=== PATIENT | female | born 1950 | race Caucasian/White ===

== ENCOUNTER 2017-11-28 11:37 | Inpatient (IN) | payer OTHER ==
--- NOTE | 2017-11-28 12:14 | PDOC ---
History of Present Illness - General Chief Complaint: Altered Mental Status Stated Complaint: AMS Time Seen by Provider: 11/28/17 11:58 History Source: Alf Records, Primary Care Provider Exam Limitations: Dementia - History of Present Illness Initial Comments: 11/28/17 15:27 Patient is a 66-year-old female past medical history of anemia, stage IV CAD, dementia, presents to the emergency department today from [facility] with the chief complaint of altered mental status. History was obtained from FATOU Capone at [facility]. She states that the patient is usually A&Ox3, verbal calling out and aggressive. When she saw the patient today patient was A& Ox1 (names), nonverbal, listless and not acting like herself. She states that the patient is not taking any of her home medications this morning nor she been eating and drinking. States that her baseline creatinine is approximately 2.9. No known fevers, recent illness, shortness of breath, nausea vomiting diarrhea. Past History - Travel Traveled outside of the country in the last 30 days: No Close contact w/someone who was outside of country & ill: No - Past Medical History Allergies/Adverse Reactions: Allergies Allergy/AdvReac Type Severity Reaction Status Date / Time No Known Allergies Allergy Verified 11/28/17 11:40 Home Medications: Ambulatory Orders Aspirin [Aspirin EC] 81 mg PO DAILY 11/28/17 Brimonidine Tartrate [Alphagan P 0.1% -] 1 drop OU TID 11/28/17 Calcium Carbonate/Vitamin D3 [Calcium 500 + Vit D 200 Caplet] 1 each PO DAILY Carbidopa/Levodopa 25/100 [Sinemet 25/100 -] 1 each PO TID 11/28/17 Citalopram Hydrobromide [Celexa -] 10 mg PO DAILY 11/28/17 Clonazepam [Klonopin -] 0.5 mg PO BID 11/28/17 Cyanocobalamin (Vitamin B-12) [Vitamin B-12] 1,000 mcg PO DAILY 11/28/17 Docusate Sodium 300 mg PO HS 11/28/17 Donepezil HCl [Aricept] 10 mg PO DAILY 11/28/17 Dorzolamide HCl [Trusopt 2%] 1 drop OU TID 11/28/17 Ferrous Sulfate 325 mg PO BID 11/28/17 Folic Acid 1 mg PO DAILY 11/28/17 Glimepiride 1 mg PO DAILY 11/28/17 Haloperidol 0.5 mg PO HS 11/28/17 Insulin Glargine,Hum.rec.anlog [Lantus] 20 unit SQ HS 11/28/17 Latanoprost 0.005% Eye Drops [Xalatan 0.005% Eye Drops -] 1 drop OU HS 11/28/17 Pilocarpine 1% [Pilostat 1% -] 1 drop OU QID 11/28/17 Simvastatin [Zocor -] 20 mg PO HS 11/28/17 Sodium Chloride [Saline Nose [place]] 1 spray NS BID 11/28/17 Anemia: Yes COPD: No Dementia: Yes Diabetes: Yes Hypercholesterolemia: Yes Psychiatric Problems: Yes Other medical history: glaucoma, kidney failure, Parkinson's disease - Suicide/Smoking/Psychosocial Hx Smoking History: Unknown if ever smoked Review of Systems - Review of Systems Able to Perform ROS?: No (Demented/non-verbal) *Physical Exam - Vital Signs Last Vital Signs Temp Pulse Resp BP Pulse Ox 98.9 F 73 18 154/64 11/28/17 11:41 11/28/17 11:41 11/28/17 11:41 11/28/17 11:41 - Physical Exam Comments: 11/28/17 16:41 GENERAL: Well developed, well nourished. Awake and alert to name only. No acute distress. Reaching out of exam bed. HEENT: Normocephalic, atraumatic. PERRLA, EOMI. No conjunctival pallor. Sclera are non- icteric. Moist mucous membranes. Oropharynx is clear. NECK: Supple. Full ROM. No JVD. Carotid pulses 2+ and symmetric, without bruits. No thyromegaly. No lymphadenopathy. CARDIOVASCULAR: Regular rate and rhythm. Systolic murmur II/ along the R and L 2nd/3rd intercostal space . No rubs, or gallops. Distal pulses are 2+ and symmetric. PULMONARY: No evidence of respiratory distress. Lungs clear to auscultation bilaterally. No wheezing, rales or rhonchi. ABDOMINAL: Soft. Non-tender. Non-distended. No rebound or guarding. No organomegaly. Normoactive bowel sounds. MUSCULOSKELETAL Normal range of motion at all joints. No bony deformities or tenderness. No CVA tenderness. EXTREMITIES: No cyanosis. No clubbing. No edema. No calf tenderness. SKIN: Warm and dry. Normal capillary refill. No rashes. No jaundice. NEUROLOGICAL: Unable to perform a neuro exam. Pt. is non-verbal, not responding to commands and aggressive. Toes are down-going bilaterally. Gait is not observed. PSYCHIATRIC: Cooperative. Good eye contact. Appropriate mood and affect. ED Treatment Course - LABORATORY CBC & Chemistry Diagram: 11/29/17 05:50 11/29/17 05:50 Medical Decision Making - Critical Care Time Total Critical Care Time (minutes): 30 Critical Care Statement: The care of this patient involved high complexity decision making to prevent further life threatening deterioration of the patient 's condition and/or to evaluate & treat vital organ system(s) failure or risk of failure. - Medical Decision Making 11/28/17 12:29 Patient is a 66-year-old female past medical history of anemia, dementia, CKD stage 4, who presents to the ED from [facility] with altered mental status. Broad differential given altered mental status. Patient is A&O 1 and nonverbal at this time. Differential diagnosis includes but is not limited to CVA, sepsis, ACS, electrolyte imbalance, hypoglycemia. 1.CBC, CMP, PT/INR, cardiac profile, UA, UC 2.chest x-ray, head CT 3.aspirin, IV fluids 4.reevaluate 11/28/17 14:24 Lab work is markedly abnormal. Hgb 7.4, Crit 23.6, Troponin 0.17, Cr 3.4, BUN 63 , glucose 253, sodium 151. There is no apparent leukocytosis white count is 6.1 however there is a left shift neutrophils 86%. Urine is also with positive leuk esterase, 12 WBCs. Troponin may be due to kidney function, demand ischemia. EKG shows a rate of 63 normal sinus rhythm, left axis deviation inverted T waves in V2. Will re-draw troponin We will hold normal saline at this time. Starting half normal saline due to hypernatremia. Aspirin given for the troponin. Head CT is negative for ischemic stroke, hemorrhage, mass effect. Chest X-ray: negative for acute cardiopulmonary disease. Given many abnormal lab results, will call long-term for more information. 11/28/17 15:15 Spoke with FATOU Capone at [facility]. States that pt. baseline is approximately 2.9 and pt in stage 4 CKD. AMS is new as of two days ago. Will admit the patient for further work up at this time. Page to Dr. Montelongo 11/28/17 16:[address] Montelongo. 11/28/17 17:46 Spoke with pt pcp Dr. Montelongo. Agrees that pt needs to be admitted. States that the admission will go to Dr. Santos, however since it is after 5 admission to go to hosptialist. Confirming with hosptialist group now. 11/28/17 18:02 Hospitalists are covering for Dr. Santos's admission. Microblog sent. *DC/Admit/Observation/Transfer Diagnosis at time of Disposition: Hypernatremia, Elevated troponin, BING (acute kidney injury) Anemia Qualifiers: Anemia type: unspecified type Qualified Code(s): D64.9 - Anemia, unspecified Altered mental status Qualifiers: Altered mental status type: unspecified Qualified Code(s): R41.82 - Altered mental status, unspecified - Discharge Dispostion Condition at time of disposition: Guarded Admit: Yes - Referrals - Patient Instructions - Post Discharge Activity
[2017-11-28 12:52] LABS: BASO % 0.2 % (0-2.0); EOS % 0.1 % (0-4.5); HEMATOCRIT 23.6 % (32.4-45.2); HEMOGLOBIN 7.4 GM/dL (10.7-15.3); MCH 29.5 pg (25.7-33.7); MCHC 31.1 g/dl (32.0-36.0); MEAN CELL VOLUME 94.7 fl (80-96); MEAN PLT VOLUME 7.1 fl (7.5-11.1); NEUT % 86.7 % (42.8-82.8); PLATELET COUNT 152 K/MM3 (134-434); WHITE BLOOD COUNT 6.1 K/mm3 (4.0-10.0)
[2017-11-28 13:11] LABS: INR 0.96 (0.82-1.09); PROTHROMBIN TIME (PATIENT) 10.8 SEC (9.98-11.88)
[2017-11-28 13:31] LABS: ALBUMIN 2.6 g/dl (3.4-5.0); ANION GAP 10 (8-16); BILIRUBIN,TOTAL 0.3 mg/dL (0.2-1.0); BLOOD UREA NITROGEN 68 mg/dL (7-18); CALCIUM 8.4 mg/dL (8.5-10.1); CHLORIDE 116 mmol/L (98-107); CO2 25 mmol/L (21-32); CREATININE 3.4 mg/dL (0.55-1.02); GLUCOSE,RANDOM 253 mg/dL (74-106); POTASSIUM 4.5 mmol/L (3.5-5.1); SGOT/AST 63 U/L (15-37); SGPT/ALT 10 U/L (12-78); SODIUM 151 mmol/L (136-145); TOT PROT 6.6 g/dl (6.4-8.2)
[2017-11-28 13:34] LABS: URINE APPEARANCE CLOUDY; URINE BILIRUBIN NEGATIVE (NEGATIVE); URINE BLOOD NEGATIVE (NEGATIVE); URINE COLOR DKYELLOW; URINE GLUCOSE (UA) 2+ (NEGATIVE); URINE KETONE NEGATIVE (NEGATIVE); URINE NITRITE NEGATIVE (NEGATIVE); URINE UROBILINOGEN NEGATIVE mg/dL (0.2-1.0)
[2017-11-28 13:34] LABS: ALK PHOS 87 U/L (45-117)
[2017-11-28] MEDS ORDERED: SODIUM CHLORIDE 1,000 ML IV STA (14:28)
[2017-11-28 14:48] LABS: URINE LEUK ESTERASE 1+ (NEGATIVE); URINE PROTEIN 3+ (NEGATIVE)
[2017-11-28 14:53] LABS: EPI CELLS RARE /HPF (FEW); URINE BACTERIA RARE /hpf (NONE SEEN)
--- NOTE | 2017-11-28 15:23 | EKG ---
Test Reason : Blood Pressure : / mmHG Vent. Rate : 063 BPM Atrial Rate : 063 BPM P-R Int : 192 ms QRS Dur : 102 ms QT Int : 454 ms P-R-T Axes : 086 -62 065 degrees QTc Int : 464 ms POOR DATA QUALITY, INTERPRETATION MAY BE ADVERSELY AFFECTED NORMAL SINUS RHYTHM LEFT AXIS DEVIATION ANTEROSEPTAL INFARCT , AGE UNDETERMINED ABNORMAL ECG NO PREVIOUS ECGS AVAILABLE Confirmed by FEDE PISANO, AMPARO ([id number]) on 11/28/2017 3:23:13 PM Referred By: Confirmed By:AMPARO MISTRY MD
[2017-11-28] MEDS ORDERED: ASPIRIN 300 MG SUPP.RECT PR ONE (16:56)
[2017-11-28] MEDS ORDERED: SODIUM CHLORIDE 0.45% 1,000 ML IV SCH (17:15)
[2017-11-28] MEDS ORDERED: ASPIRIN 300 MG SUPP.RECT RC ONE (17:19)
[2017-11-28] MEDS ORDERED: CEFTRIAXONE 1 G/50 ML PREMIX 50 ML IVPB ONE (21:22)
--- NOTE | 2017-11-28 21:29 | HP ---
CHIEF COMPLAINT: Altered mental status PCP: Jayda HISTORY OF PRESENT ILLNESS: This is a 66 year old female sent to ED from [facility] for altered mental status. Pt is nonverbal at present, all history obtained from chart. As per ED chart, pt was noted to be nonverbal, listless and not herself today. Her normal baseline is aggressive, calling out and alert and oriented. She has not been taking her medications and her po intake has been very poor. Upon review [facility] it appears she has been on D5NS @50cc/hr since 11/26. ER course was notable for: (1) BUN / CR 68/3.4 (baseline Cr 2.9 as pre NH) (2) u/a with leukesterase and 12 WBC (3) Trop 0.18 PAST MEDICAL HISTORY: Dementia, CKD4, Anemia, DM, Parkinson's disease, glaucoma, HLD, depression PAST SURGICAL HISTORY: unknown Social History: Smoking: unknown Alcohol: unknown Drugs: unknown Family History: unknown Allergies No Known Allergies Allergy (Verified 11/28/17 11:40) Home Medications 3 Medication Instructions Recorded Aspirin [Aspirin EC] 81 mg PO DAILY 11/28/17 Brimonidine Tartrate [Alphagan P 1 drop OU TID 11/28/17 0.1% -] Calcium Carbonate/Vitamin D3 1 each PO DAILY 11/28/17 [Calcium 500 + Vit D 200 Caplet] Carbidopa/Levodopa 25/100 [Sinemet 1 each PO TID 11/28/17 25/100 -] Citalopram Hydrobromide [Celexa -] 10 mg PO DAILY 11/28/17 Clonazepam [Klonopin -] 0.5 mg PO BID 11/28/17 Cyanocobalamin (Vitamin B-12) 1,000 mcg PO DAILY 11/28/17 [Vitamin B-12] Docusate Sodium 300 mg PO HS 11/28/17 Donepezil HCl [Aricept] 10 mg PO DAILY 11/28/17 Dorzolamide HCl [Trusopt 2%] 1 drop OU TID 11/28/17 Ferrous Sulfate 325 mg PO BID 11/28/17 Folic Acid 1 mg PO DAILY 11/28/17 Glimepiride 1 mg PO DAILY 11/28/17 Haloperidol 0.5 mg PO HS 01/17/18 Insulin Glargine,Hum.rec.anlog 20 unit SQ HS 11/28/17 [Lantus] Latanoprost 0.005% Eye Drops 1 drop OU HS 11/28/17 [Xalatan 0.005% Eye Drops -] Pilocarpine 1% [Pilostat 1% -] 1 drop OU QID 11/28/17 Simvastatin [Zocor -] 20 mg PO HS 11/28/17 Sodium Chloride [Saline Nose [place]] 1 spray NS BID 11/28/17 REVIEW OF SYSTEMS CONSTITUTIONAL: Absent: fever, chills, diaphoresis, generalized weakness, malaise, loss of appetite, weight change HEENT: Absent: rhinorrhea, nasal congestion, throat pain, throat swelling, difficulty swallowing, mouth swelling, ear pain, eye pain, visual changes CARDIOVASCULAR: Absent: chest pain, syncope, palpitations, irregular heart rate, lightheadedness , peripheral edema RESPIRATORY: Absent: cough, shortness of breath, dyspnea with exertion, orthopnea, wheezing, stridor, hemoptysis GASTROINTESTINAL: Absent: abdominal pain, abdominal distension, nausea, vomiting, diarrhea, constipation, melena, hematochezia GENITOURINARY: Absent: dysuria, frequency, urgency, hesitancy, hematuria, flank pain, genital pain MUSCULOSKELETAL: Absent: myalgia, arthralgia, joint swelling, back pain, neck pain SKIN: Absent: rash, itching, pallor HEMATOLOGIC/IMMUNOLOGIC: Absent: easy bleeding, easy bruising, lymphadenopathy, frequent infections ENDOCRINE: Absent: unexplained weight gain, unexplained weight loss, heat intolerance, cold intolerance NEUROLOGIC: Absent: headache, focal weakness or paresthesias, dizziness, unsteady gait, seizure, mental status changes, bladder or bowel incontinence PSYCHIATRIC: Absent: anxiety, depression, suicidal or homicidal ideation, hallucinations. PHYSICAL EXAMINATION Vital Signs - 24 hr 3 11/28/17 11/28/17 11/28/17 11:41 12:00 16:21 Temperature 98.9 F 97.5 F L Pulse Rate 73 Pulse Rate [ 70 Apical] Respiratory 18 20 Rate Blood Pressure 154/64 Blood Pressure 143/66 [Left Arm] O2 Sat by Pulse 99 100 Oximetry (%) GENERAL: Awake, disoriented, does not follow commands, resistive to exam. in no acute distress. HEAD: Normal with no signs of trauma. EYES: Pupils equal, round and reactive to light, extraocular movements intact, sclera anicteric, conjunctiva clear. No lid lag. EARS, NOSE, THROAT: Ears normal, nares patent, oropharynx clear without exudates. Moist mucous membranes. NECK: Normal range of motion, supple without lymphadenopathy, JVD, or masses. LUNGS: Breath sounds equal, clear to auscultation bilaterally. No wheezes, and no crackles. No accessory muscle use. HEART: Regular rate and rhythm, normal S1 and S2 without murmur, rub or gallop. ABDOMEN: Soft, nontender, not distended, normoactive bowel sounds, no guarding, no rebound, no masses. No hepatomegaly or splenomegaly. MUSCULOSKELETAL: Normal range of motion at all joints. No bony deformities or tenderness. No CVA tenderness. ecchymosis right shoulder, no pain on palpation, ROM, severe sarcopenia noted UPPER EXTREMITIES: 2+ pulses, warm, well-perfused. No cyanosis. No clubbing. No peripheral edema. LOWER EXTREMITIES: 2+ pulses, warm, well-perfused. No calf tenderness. No peripheral edema. NEUROLOGICAL: Cranial nerves II-XII intact. Normal speech. Normal gait. PSYCHIATRIC: Cooperative. Good eye contact. Appropriate mood and affect. SKIN: Warm, dry, normal turgor, no rashes or lesions noted, normal capillary refill. Laboratory Results - last 24 hr 3 11/28/17 11/28/17 11/28/17 12:44 12:44 12:44 WBC 6.1 RBC 2.50 L Hgb 7.4 L Hct 23.6 L MCV 94.7 MCH 29.5 MCHC 31.1 L RDW 15.0 Plt Count 152 MPV 7.1 L Neutrophils % 86.7 H Lymphocytes % 7.0 L Monocytes % 6.0 Eosinophils % 0.1 Basophils % 0.2 PT with INR 10.80 INR 0.96 Sodium 151 H Potassium 4.5 Chloride 116 H Carbon Dioxide 25 Anion Gap 10 BUN 68 H Creatinine 3.4 H Creat Clearance w eGFR 13.43 Random Glucose 253 H Lactic Acid 2.0 Calcium 8.4 L Total Bilirubin 0.3 AST 63 H ALT 10 L Alkaline Phosphatase 87 Creatine Kinase 894 H Creatine Kinase Index 1.8 CK-MB (CK-2) 16.590 H Troponin I 0.18 H Total Protein 6.6 Albumin 2.6 L Urine Color Urine Appearance Urine pH Ur Specific [place] Urine Protein Urine Glucose (UA) Urine Ketones Urine Blood Urine Nitrite Urine Bilirubin Urine Urobilinogen Ur Leukocyte Esterase Urine WBC (Auto) Urine RBC (Auto) Ur Epithelial Cells Urine Bacteria 3 Urine Color Dkyellow 11/28/17 13:00 Urine Appearance Cloudy 11/28/17 13:00 Urine pH 8.0 (5.0-8.0) 11/28/17 13:00 Ur Specific [place] 1.012 (1.001-1.035) 11/28/17 13:00 Urine Protein 3+ (NEGATIVE) H 11/28/17 13:00 Urine Glucose (UA) 2+ (NEGATIVE) H 11/28/17 13:00 Urine Ketones Negative (NEGATIVE) 11/28/17 13:00 Urine Blood Negative (NEGATIVE) 11/28/17 13:00 Urine Nitrite Negative (NEGATIVE) 11/28/17 13:00 Urine Bilirubin Negative (NEGATIVE) 11/28/17 13:00 Ur Leukocyte Esterase 1+ (NEGATIVE) H 11/28/17 13:00 Urine WBC (Auto) 12 Urine RBC (Auto) <1 Ur Epithelial Cells Rare /HPF (FEW) 11/28/17 13:00 Urine Bacteria Rare /hpf (NONE SEEN) 11/28/17 13:00 ECG POOR DATA QUALITY, INTERPRETATION MAY BE ADVERSELY AFFECTED NORMAL SINUS RHYTHM LEFT AXIS DEVIATION ANTEROSEPTAL INFARCT , AGE UNDETERMINED ABNORMAL ECG NO PREVIOUS ECGS AVAILABLE Confirmed by FEDE PISANO, AMPARO ([id number]) on 11/28/2017 3:23:13 PM Radiology Reports CXR IMPRESSION: No acute disease. Reported By: Avery Blevins MD 11/28/[address] head IMPRESSION: 1. No acute intracranial hemorrhage, mass effects or hydrocephalus. 2. No compelling evidence of acute transcortical infarction at this time. MRI is more sensitive in detecting acute infarctions. 3. Generalized, age-related volume loss with nonspecific patchy hypoattenuation in the cerebral white matter , most likely attributed to microvascular ischemia. Reported By: Deo Diaz DO 11/28/17 [id number] ASSESSMENT/PLAN: 66yF with Dementia, CKD st4, anemia, HLD, Parkinson's disease, Glaucoma presented to the ED with altered mental status. Altered mental status - CT head with no acute findings - likely due to BING/hypernatremia/UTI - swallow eval - hold home klonopin and haldol for now until more alert BING in setting of CKD4 - bump in creatinine from baseline 2.9 to 3.4 - Given NS 1L in ED, cont 0.45%NS @ 125cc/hr - renal consult anemia - likely due to CKD, will obtain renal consult, consider epogen elevated troponin - likely due to CKD, will trend - cardiology consult if not trending down with iVF Hypernatremia - due to hypovolemia-free water deficit calculated 2.0L - cont 0.45%NS @125cc/hr UTI - mildly positive u/a - will start ceftriaxone, follow cultures, dc if no growth DM - hold home glimepiride for now - home lantus dose changed to formulary levemir and decreased to 10uHS from 20uHS as pt with poor po intake, titrate up when tolerating po or as BGM indicates HLD - cont zocor, start tomorrow if more alert Parkinson's disease - cont sinemet, start tomorrow if more alert glaucoma - cont home eye gtt DVT PPX - heparin TID FEN - 0.45%NS @ 125cc/hr - BMP in now - renal diet if alert in am, dietary consult, pt appears frail and malnourished. Dispo: Pt currently requires inpatient mangement of her emergent medical conditions. Visit type - Emergency Visit Emergency Visit: Yes ED Registration Date: 11/28/17 Care time: The patient presented to the Emergency Department on the above date and was hospitalized for further evaluation of their emergent condition. - New Patient This patient is new to me today: Yes Date on this admission: 11/28/17 - Critical Care Critical Care patient: No
[2017-11-28] MEDS ORDERED: CEFTRIAXONE 1 GM/50 ML BAG ONE (21:49)
[2017-11-28 23:20] LABS: ANION GAP 11 (8-16); BLOOD UREA NITROGEN 69 mg/dL (7-18); CALCIUM 7.7 mg/dL (8.5-10.1); CHLORIDE 118 mmol/L (98-107); CO2 21 mmol/L (21-32); CREATININE 3.2 mg/dL (0.55-1.02); GLUCOSE,RANDOM 225 mg/dL (74-106); MAGNESIUM 1.8 mg/dL (1.8-2.4); POTASSIUM 4.6 mmol/L (3.5-5.1); SODIUM 150 mmol/L (136-145)
[2017-11-29 00:06] VITALS: BMI 22.6
[2017-11-29 06:48] LABS: BASO % 0.2 % (0-2.0); HEMATOCRIT 20.2 % (32.4-45.2); MCH 30.5 pg (25.7-33.7); MCHC 32.3 g/dl (32.0-36.0); MEAN CELL VOLUME 94.3 fl (80-96); MEAN PLT VOLUME 7.8 fl (7.5-11.1); MONO % 7.5 % (3.8-10.2); NEUT % 83.3 % (42.8-82.8); PLATELET COUNT 148 K/MM3 (134-434); RBC 2.14 M/mm3 (3.60-5.2); RDW 15.5 % (11.6-15.6); WHITE BLOOD COUNT 5.9 K/mm3 (4.0-10.0)
[2017-11-29 07:06] LABS: ANION GAP 10 (8-16); BLOOD UREA NITROGEN 68 mg/dL (7-18); CALCIUM 7.5 mg/dL (8.5-10.1); CHLORIDE 118 mmol/L (98-107); CO2 21 mmol/L (21-32); CREATININE 3.1 mg/dL (0.55-1.02); GLUCOSE,RANDOM 178 mg/dL (74-106); MAGNESIUM 1.7 mg/dL (1.8-2.4); PHOSPHOROUS 3.1 mg/dL (2.5-4.9); POTASSIUM 4.1 mmol/L (3.5-5.1); SODIUM 149 mmol/L (136-145)
[2017-11-29] MEDS: INSULIN SLIDING SCALE (NOVOLOG) 1 VIAL SQ SCH ×4 (07:20→23:59)
[2017-11-29] MEDS: CARBIDOPA/LEVODOPA 25/100 TABLET (FP) PO SCH ×3 (07:21→22:57)
[2017-11-29] MEDS: HEPARIN NA (PORCINE) 5,000 UNITS/ML 1ML VIAL SQ SCH ×3 (07:22→22:58)
[2017-11-29 08:08] LABS: HEMOGLOBIN 6.5 GM/dL (10.7-15.3)
[2017-11-29] MEDS ORDERED: FUROSEMIDE 40 MG/4 ML INJECTABLE VIAL IVPUSH ONE (08:23)
--- NOTE | 2017-11-29 08:26 | PN ---
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, Physician History of Present Illness: IN BED LETHARGIC VEST IN PLACE FOR SAFETY - Current Medication List Current Medications: Active Medications Aspirin (Ecotrin -) 81 mg PO DAILY [facility] Atorvastatin Calcium (Lipitor -) 10 mg PO HS [facility] Brimonidine Tartrate (Alphagan P 0.1% -) 1 drop OU TID [facility] Calcium Carbonate/Cholecalciferol (Os-Isacc 500+D -) 1 tab PO DAILY [facility] Carbidopa/Levodopa (Sinemet 25/100 -) 1 each PO TID [facility] Last Admin: 11/29/17 07:21 Dose: Not Given Citalopram Hydrobromide (Celexa -) 10 mg PO DAILY [facility] Cyanocobalamin (Vitamin B12 -) 1,000 mcg PO DAILY [facility] Docusate Sodium (Colace -) 300 mg PO HS [facility] Donepezil HCl (Aricept -) 10 mg PO DAILY [facility] Dorzolamide HCl (Trusopt 2%) 1 drop OU TID [facility] Ferrous Sulfate (Feosol -) 325 mg PO BID [facility] Folic Acid (Folic Acid -) 1 mg PO DAILY [facility] Heparin Sodium (Porcine) (Heparin -) 5,000 unit SQ TID [facility] Last Admin: 11/29/17 07:22 Dose: 5,000 unit Sodium Chloride (1/2 Normal Saline) 1,000 mls @ 125 mls/hr IV ASDIR [facility] Last Admin: 11/28/17 17:52 Dose: 125 mls/hr Insulin Aspart (Novolog Vial Sliding Scale -) 1 vial SQ TIDAC [facility] PRN Reason: Protocol Last Admin: 11/29/17 07:20 Dose: Not Given Insulin Aspart (Novolog Vial Sliding Scale -) 1 vial SQ HS [facility] PRN Reason: Protocol Insulin Detemir (Levemir Vial) 10 units SQ HS [facility] Latanoprost (Xalatan 0.005% Eye Drops -) 1 drop OU HS [facility] Pilocarpine HCl (Pilostat 1% -) 1 drop OU QID [facility] - Objective Vital Signs: Vital Signs Temperature 98.7 F 11/29/17 01:24 Pulse Rate 70 11/29/17 06:52 Respiratory Rate 18 11/29/17 06:52 Blood Pressure 155/70 11/29/17 06:52 O2 Sat by Pulse Oximetry (%) 96 11/28/17 23:48 Cardiovascular: Yes: S1, S2 Respiratory: Yes: Regular, CTA Bilaterally Gastrointestinal: Yes: Normal Bowel Sounds, Soft Neurological: Yes: Lethargy Labs: CBC, BMP 11/29/17 05:50 11/29/17 05:50 INR, PTT INR 0.96 (0.82-1.09) 11/28/17 12:44 Problem List - Problems (1) BING (acute kidney injury) Assessment/Plan: IVF MONITOR LABS RENAL CONSULT Code(s): N17.9 - ACUTE KIDNEY FAILURE, UNSPECIFIED (2) Altered mental status Assessment/Plan: MAYBE TOXI METABOLIC HOLD PSYCHOTROPICS NEURO Code(s): R41.82 - ALTERED MENTAL STATUS, UNSPECIFIED Qualifiers: Altered mental status type: unspecified Qualified Code(s): R41.82 - Altered mental status, unspecified (3) Anemia Assessment/Plan: MUTIFACTORIAL WORK UP ORDERED TRANSFUSE 2 UNITS LASIX POST TRANSFUSION Code(s): D64.9 - ANEMIA, UNSPECIFIED Qualifiers: Anemia type: unspecified type Qualified Code(s): D64.9 - Anemia, unspecified (4) Elevated troponin Code(s): R74.8 - ABNORMAL LEVELS OF OTHER SERUM ENZYMES
[2017-11-29] MEDS ORDERED: IRON SUCROSE INJECTION 300 MG in SODIUM CHLORIDE 250 ML IVPB ONE (09:05)
--- NOTE | 2017-11-29 09:05 | CONSULT ---
Consult Consult Specialty:: oncology - History of Present Illness History of Present Illness: 66F who presents to the hospital from [facility] for altered mental status. As per chart, the long term staff noted that patient was not herself and was having worsening mental status. Patient apparently repeatedly usually calls out for staff and is awake and orientated . Her normal baseline is aggressive, calling out and alert and oriented. She has not been taking her medications and her po intake has been very poor. Patient has been on D5NS @50cc /hr since 11/26 according to long term records. In ED, upon laboratory assessment, patient was noted to be hypernatremic and to have an acute kidney injury. Her baseline Cr is reportedly 2.9 as she has CKD and on presentation creatinine was 3.4. There are no documented melena, hematochezia, hematemesis. - History Source History Provided By: Medical Record - Past Medical History ...: No - Alcohol/Substance Use Hx Alcohol Use: No (unknown) - Smoking History Smoking history: Unknown if ever smoked Have you smoked in the past 12 months: No Home Medications - Allergies Allergies/Adverse Reactions: Allergies Allergy/AdvReac Type Severity Reaction Status Date / Time No Known Allergies Allergy Verified 11/28/17 11:40 - Home Medications Home Medications: Ambulatory Orders Aspirin [Aspirin EC] 81 mg PO DAILY 11/28/17 Brimonidine Tartrate [Alphagan P 0.1% -] 1 drop OU TID 11/28/17 Calcium Carbonate/Vitamin D3 [Calcium 500 + Vit D 200 Caplet] 1 each PO DAILY Carbidopa/Levodopa 25/100 [Sinemet 25/100 -] 1 each PO TID 11/28/17 Citalopram Hydrobromide [Celexa -] 10 mg PO DAILY 11/28/17 Clonazepam [Klonopin -] 0.5 mg PO BID 11/28/17 Cyanocobalamin (Vitamin B-12) [Vitamin B-12] 1,000 mcg PO DAILY 11/28/17 Docusate Sodium 300 mg PO HS 11/28/17 Donepezil HCl [Aricept] 10 mg PO DAILY 11/28/17 Dorzolamide HCl [Trusopt 2%] 1 drop OU TID 11/28/17 Ferrous Sulfate 325 mg PO BID 11/28/17 Folic Acid 1 mg PO DAILY 11/28/17 Glimepiride 1 mg PO DAILY 11/28/17 Haloperidol 0.5 mg PO HS 11/28/17 Insulin Glargine,Hum.rec.anlog [Lantus] 20 unit SQ HS 11/28/17 Latanoprost 0.005% Eye Drops [Xalatan 0.005% Eye Drops -] 1 drop OU HS 11/28/17 Pilocarpine 1% [Pilostat 1% -] 1 drop OU QID 11/28/17 Simvastatin [Zocor -] 20 mg PO HS 11/28/17 Sodium Chloride [Saline Nose Saline] 1 spray NS BID 11/28/17 Physical Exam Vital Signs: Vital Signs Temperature 98.7 F 11/29/17 01:24 Pulse Rate 70 11/29/17 06:52 Respiratory Rate 18 11/29/17 06:52 Blood Pressure 155/70 11/29/17 06:52 O2 Sat by Pulse Oximetry (%) 96 11/28/17 23:48 Constitutional: Yes: Poor Hygeine HENT: Yes: Atraumatic, Normocephalic Neck: Yes: Supple Cardiovascular: Yes: Regular Rate and Rhythm Respiratory: Yes: Regular Gastrointestinal: Yes: Soft Neurological: Yes: Other (nonverbal) Labs: CBC, BMP 11/29/17 05:50 11/29/17 05:50 Assessment/Plan family refusing PRBCs as per RN steve moyer to consider epogen
--- NOTE | 2017-11-29 09:54 | CONSULT ---
Consult - text type - Consultation Consultation Note: Neurology History of Present Illness Patient is a 66-year-old female past medical history of anemia, stage IV CAD, dementia, presents to the emergency department today from [facility] with the chief complaint of altered mental status. History per notes as patient is nonverbal. She states that the patient is usually A&Ox3, verbal calling out and aggressive. During my evaluation has been nonverbal, restless, CT head reviewed and did not show acute changes. Admitted for further mgmt of alerted mental status, toxic metabolic encephalopathy. Has underlying dementia, on Donepezil. Spoke to nurse and H/H reduced, hemoglobin 6.5, family did not want blood transfusion. Heme/Onc on board following. Past History - Travel Traveled outside of the country in the last 30 days: No Close contact w/someone who was outside of country & ill: No - Past Medical History Allergies/Adverse Reactions: Allergies Allergy/AdvReac Type Severity Reaction Status Date / Time No Known Allergies Allergy Verified 11/28/17 11:40 Anemia: Yes COPD: No Dementia: Yes Diabetes: Yes Hypercholesterolemia: Yes Psychiatric Problems: Yes Other medical history: glaucoma, kidney failure, Parkinson's disease - Suicide/Smoking/Psychosocial Hx Smoking History: Unknown if ever smoked Active Medications Aspirin (Ecotrin -) 81 mg PO DAILY [facility] Atorvastatin Calcium (Lipitor -) 10 mg PO HS [facility] Brimonidine Tartrate (Alphagan P 0.1% -) 1 drop OU TID [facility] Calcium Carbonate/Cholecalciferol (Os-Isacc 500+D -) 1 tab PO DAILY [facility] Carbidopa/Levodopa (Sinemet 25/100 -) 1 each PO TID [facility] Last Admin: 11/29/17 07:21 Dose: Not Given Citalopram Hydrobromide (Celexa -) 10 mg PO DAILY [facility] Cyanocobalamin (Vitamin B12 -) 1,000 mcg PO DAILY [facility] Docusate Sodium (Colace -) 300 mg PO HS [facility] Donepezil HCl (Aricept -) 10 mg PO DAILY [facility] Dorzolamide HCl (Trusopt 2%) 1 drop OU TID [facility] Ferrous Sulfate (Feosol -) 325 mg PO BID [facility] Folic Acid (Folic Acid -) 1 mg PO DAILY [facility] Heparin Sodium (Porcine) (Heparin -) 5,000 unit SQ TID [facility] Last Admin: 11/29/17 07:22 Dose: 5,000 unit Sodium Chloride (1/2 Normal Saline) 1,000 mls @ 125 mls/hr IV ASDIR [facility] Last Admin: 11/28/17 17:52 Dose: 125 mls/hr Iron Sucrose 300 mg/ Sodium (Chloride) 265 mls @ 265 mls/hr IVPB ONCE ONE Stop: 11/29/17 10:04 Insulin Aspart (Novolog Vial Sliding Scale -) 1 vial SQ TIDAC [facility] PRN Reason: Protocol Last Admin: 11/29/17 07:20 Dose: Not Given Insulin Aspart (Novolog Vial Sliding Scale -) 1 vial SQ HS [facility] PRN Reason: Protocol Insulin Detemir (Levemir Vial) 10 units SQ HS [facility] Latanoprost (Xalatan 0.005% Eye Drops -) 1 drop OU HS [facility] Pilocarpine HCl (Pilostat 1% -) 1 drop OU QID [facility] Review of Systems - Review of Systems Able to Perform ROS?: No (Demented/non-verbal) *Physical Exam Vital Signs Temperature 98.7 F 11/29/17 01:24 Pulse Rate 70 11/29/17 06:52 Respiratory Rate 18 11/29/17 06:52 Blood Pressure 155/70 11/29/17 06:52 O2 Sat by Pulse Oximetry (%) 96 11/28/17 23:48 GENERAL: Well developed, well nourished. Awake and alert to name only. No acute distress. Reaching out of exam bed. HEENT: Normocephalic, atraumatic. PERRLA, EOMI. No conjunctival pallor. Sclera are non- icteric. Moist mucous membranes. Oropharynx is clear. NECK: Supple. Full ROM. No JVD. Carotid pulses 2+ and symmetric, without bruits. No thyromegaly. No lymphadenopathy. CARDIOVASCULAR: Regular rate and rhythm. Systolic murmur II/ along the R and L 2nd/3rd intercostal space . No rubs, or gallops. Distal pulses are 2+ and symmetric. PULMONARY: No evidence of respiratory distress. Lungs clear to auscultation bilaterally. No wheezing, rales or rhonchi. ABDOMINAL: Soft. Non-tender. Non-distended. No rebound or guarding. No organomegaly. Normoactive bowel sounds. MUSCULOSKELETAL Normal range of motion at all joints. No bony deformities or tenderness. No CVA tenderness. EXTREMITIES: No cyanosis. No clubbing. No edema. No calf tenderness. SKIN: Warm and dry. Normal capillary refill. No rashes. No jaundice. NEUROLOGICAL: Unable to perform a neuro exam. Pt. is non-verbal, not responding to commands and aggressive. Toes are down-going bilaterally. Gait is not observed. PSYCHIATRIC: Cooperative. Good eye contact. Appropriate mood and affect. CBCD WBC 5.9 K/mm3 (4.0-10.0) 11/29/17 05:50 RBC 2.14 M/mm3 (3.60-5.2) L 11/29/17 05:50 Hgb 6.5 GM/dL (10.7-15.3) L* D 11/29/17 05:50 Hct 20.2 % (32.4-45.2) L 11/29/17 05:50 MCV 94.3 fl (80-96) 11/29/17 05:50 MCHC 32.3 g/dl (32.0-36.0) 11/29/17 05:50 RDW 15.5 % (11.6-15.6) 11/29/17 05:50 Plt Count 148 K/MM3 (134-434) 11/29/17 05:50 MPV 7.8 fl (7.5-11.1) 11/29/17 05:50 CMP Sodium 149 mmol/L (136-145) H 11/29/17 05:50 Potassium 4.1 mmol/L (3.5-5.1) 11/29/17 05:50 Chloride 118 mmol/L (98-107) H 11/29/17 05:50 Carbon Dioxide 21 mmol/L (21-32) 11/29/17 05:50 Anion Gap 10 (8-16) 11/29/17 05:50 BUN 68 mg/dL (7-18) H 11/29/17 05:50 Creatinine 3.1 mg/dL (0.55-1.02) H 11/29/17 05:50 Creat Clearance w eGFR 13.43 (>60) 11/28/17 12:44 Calcium 7.5 mg/dL (8.5-10.1) L 11/29/17 05:50 Total Bilirubin 0.3 mg/dL (0.2-1.0) 11/28/17 12:44 AST 63 U/L (15-37) H 11/28/17 12:44 ALT 10 U/L (12-78) L 11/28/17 12:44 Alkaline Phosphatase 87 U/L (45-117) 11/28/17 12:44 Total Protein 6.6 g/dl (6.4-8.2) 11/28/17 12:44 Albumin 2.6 g/dl (3.4-5.0) L 11/28/17 12:44 CT head reviewed Medical Decision Making 66-year-old female past medical history of anemia, stage IV CAD, dementia, presents to the emergency department today from [facility] with the chief complaint of altered mental status. History per notes as patient is nonverbal. She states that the patient is usually A&Ox3, verbal calling out and aggressive. During my evaluation has been nonverbal, restless. CT head reviewed and did not show acute changes. For underlying dementia, continue on Donepezil. Hemoglobin 6.5, family did not want blood transfusion and this may also cause her AMS Continue medical optimization Nephrology follow up regarding hypernatermia and CKD Patient with alerted mental status, toxic metabolic encephalopathy which can be caused by any of above
--- NOTE | 2017-11-29 10:04 | CONSULT ---
Admitting History and Physical - Primary Care Physician PCP: Zach Santos - Admission History of Present Illness: Per EMR: HISTORY OF PRESENT ILLNESS: This is a 66 year old female sent to ED from [facility] for altered mental status. Pt is nonverbal at present, all history obtained from chart. As per ED chart, pt was noted to be nonverbal, listless and not herself today. Her normal baseline is aggressive, calling out and alert and oriented. She has not been taking her medications and her po intake has been very poor. Upon review of pt' s medication list from [facility] it appears she has been on D5NS @50cc/hr since 11/26. ER course was notable for: (1) BUN / CR 68/3.4 (baseline Cr 2.9 as pre NH) (2) u/a with leukesterase and 12 WBC (3) Trop 0.18 PAST MEDICAL HISTORY: Dementia, CKD4, Anemia, DM, Parkinson's disease, glaucoma, HLD, depression Pt was on a reg diet/thin liquid at [facility]. Selected Entries 11/28/17 11/28/17 11/28/17 11:41 16:21 21:30 Temperature 98.9 F 97.5 F L 98.4 F 11/28/17 11/29/17 23:48 01:24 Temperature 99 F 98.7 F Laboratory Tests 11/29/17 11/29/17 05:50 05:50 WBC 5.9 Hgb 6.5 L* D Sodium 149 H History Source: Medical Record Limitations to Obtaining History: Clinical Condition, Dementia - Past Medical History ...: No - Advance Directives Advance Directives: Yes: MOLST - Smoking History Smoking history: Unknown if ever smoked Have you smoked in the past 12 months: No - Alcohol/Substance Use Hx Alcohol Use: No (unknown) History - Admission Reason For Visit: ACUTE KID INJ/ANEMIA/HYPERNATREMIA - Diagnostics X-ray: Report Reviewed CT Scan: Report Reviewed - General Mental Status: Confused, Flat Affect Attention: Distractible Ability to Follow Directions: Poor Head/Neck Control: Fair - Hearing Hearing: Normal Hearing Aide: No With Patient: No Speech Evaluation - Communication Primary Language: SETSWANA Communication: Yes: Non-Communicable Oral Expression Ability: Yes: Non-Verbal, Non-Vocal - Speech Production Apraxia: Yes - Language/Auditory Comprehension Observation: Able to respond to yes/no queries: No, Comprehends Conversational Speech: No (doubtful.), Benefits from Slow Speech: Yes, Benefits from Repetiton : Yes - Language/Verbal Expression Able to Communicate Wants and Needs: Yes: Severely Impaired Functional Communication Status: Yes: Severely Impaired - Swallow Evaluation/Bedside Assessment Current Nutritional Intake: Regular, Thin Liquids Oral Secretions: Yes: WFL Dentition: Yes: Adequate Facial Symmetry at Rest: Facial Droop Right Lingual Movement: Symmetric Lingual Speed of Movement: Normal Laryngeal Movement: Labored,delay initiation Labial Seal: Impaired Bilaterally Oral Prep Time: Increased A-P Transit: Impaired Timing of Swallow: Delayed Coughing/Throat Clear: Yes (thin liquid) Recommendations - Speech Evaluation, Impression/Plan Impression: Arousable. Visually tracks me with left eye. Nonvocal/Nonverbal. Audible strong cough. Difficulty opening [place] intermittently for PO trials, likely sec to oral/verbal Apraxia.Followed no commands. No yes/no responses. No clear frustration or attempt to communicate yet.Swallow reflex is delayed but quite brisk, once triggered. Intermittent aspiration suspected on thin liquid.Pt did not accept PO trials for staff. Educated staff on feeding techniques/Compensatory swallowing strategies - Disposition Discharge to: Custodial Facility - Dysphagia Impressions/Plan Swallowing Skills: Impaired Dysphagia Impressions: Moderate Impairment *Silent aspiration: cannot be R/O at bedside Dysphagia Treatment Plan: Small Bites, Chin Tuck/Down, Clear Pocket Food, Safe Rate, 1/2 tsp. at a time, Elevate HOB during feed, Other (Establish eye contact. Tell her you will feed her. Tap lower lip with spoon/cup to elicit mouth opening.) Recommendations: Modified Barium Swallow (if cough, congestion, fever) - Recommendations Diet Consistency: Dysphagia Pureed Medication Administration: Crushed with applesauce Liquids: [place] Thick Supplement: Magic Cup, Ensure Pudding, Other (ensure compact)
[2017-11-29] MEDS: FERROUS SO4 325 MG TABLET (FP) PO SCH ×2 (10:17→22:57)
[2017-11-29] MEDS: ASPIRIN COATED 81 MG TABLET.EC PO SCH (10:17)
[2017-11-29] MEDS: DONEPEZIL HCL 10 MG TABLET (FP) PO SCH (10:17)
[2017-11-29] MEDS: CALCIUM 500MG/VIT-D 200 UNITS COMBO TABLET (FP) PO SCH (10:17)
[2017-11-29] MEDS: CYANOCOBALAMIN 1,000 MCG TABLET (FP) PO SCH (10:18)
[2017-11-29] MEDS: CITALOPRAM HYDROBROMIDE 10 MG TABLET (FP) PO SCH (10:18)
[2017-11-29] MEDS: FOLIC ACID 1 MG TABLET (FP) PO SCH (10:18)
[2017-11-29] MEDS: PILOCARPINE 1% OPHTHALMIC SOLUTION 15 ML BOTTLE OU SCH ×4 (10:19→22:56)
--- NOTE | 2017-11-29 11:55 | CONSULT ---
Consult Consult Specialty:: Nephrology Referred by:: Danielle Reason for Consultation:: BING on CKD and hypernatremia - History of Present Illness Chief Complaint: altered mental status History of Present Illness: 66F who presents to the hospital from [facility] for altered mental status. Of note patient would not respond to any questions. History taken from chart. As per chart, the halfway staff noted that patient was not herself and was having worsening mental status. Patient apparently repeatedly usually calls out for staff and is awake and orientated . Her normal baseline is aggressive, calling out and alert and oriented. She has not been taking her medications and her po intake has been very poor. Patient has been on D5NS @50cc/hr since 11/26 according to halfway records. In ED, upon laboratory assessment, patient was noted to be hypernatremic and to have an acute kidney injury. Her baseline Cr is reportedly 2.9 as she has CKD and on presentation creatinine was 3.4. Review of symptoms unable to be obtained due to patient's clinical condition. 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: Dementia, Parkinson's Cardio/Vascular: Yes: Hyperlipdemia Renal/: Yes: Renal Failure (chronic stage 4 ) ...: No Heme/Onc: Yes: Anemia Psych: Yes: Depression Endocrine: Yes: Diabetes Mellitus Additional Medical History: Glaucoma - Alcohol/Substance Use Hx Alcohol Use: No (unknown) - Smoking History Smoking history: Unknown if ever smoked Have you smoked in the past 12 months: No Home Medications - Allergies Allergies/Adverse Reactions: Allergies Allergy/AdvReac Type Severity Reaction Status Date / Time No Known Allergies Allergy Verified 11/28/17 11:40 - Home Medications Home Medications: Ambulatory Orders Aspirin [Aspirin EC] 81 mg PO DAILY 11/28/17 Brimonidine Tartrate [Alphagan P 0.1% -] 1 drop OU TID 11/28/17 Calcium Carbonate/Vitamin D3 [Calcium 500 + Vit D 200 Caplet] 1 each PO DAILY Carbidopa/Levodopa 25/100 [Sinemet 25/100 -] 1 each PO TID 11/28/17 Citalopram Hydrobromide [Celexa -] 10 mg PO DAILY 11/28/17 Clonazepam [Klonopin -] 0.5 mg PO BID 11/28/17 Cyanocobalamin (Vitamin B-12) [Vitamin B-12] 1,000 mcg PO DAILY 11/28/17 Docusate Sodium 300 mg PO HS 11/28/17 Donepezil HCl [Aricept] 10 mg PO DAILY 11/28/17 Dorzolamide HCl [Trusopt 2%] 1 drop OU TID 11/28/17 Ferrous Sulfate 325 mg PO BID 11/28/17 Folic Acid 1 mg PO DAILY 11/28/17 Glimepiride 1 mg PO DAILY 11/28/17 Haloperidol 0.5 mg PO HS 11/28/17 Insulin Glargine,Hum.rec.anlog [Lantus] 20 unit SQ HS 11/28/17 Latanoprost 0.005% Eye Drops [Xalatan 0.005% Eye Drops -] 1 drop OU HS 11/28/17 Pilocarpine 1% [Pilostat 1% -] 1 drop OU QID 11/28/17 Simvastatin [Zocor -] 20 mg PO HS 11/28/17 Sodium Chloride [Saline Nose Gustine] 1 spray NS BID 11/28/17 Family Disease History - Family Disease History Family History: Unable to Obtain Review of Systems Unable to obtain ROS, reason: patient non verbal Physical Exam Vital Signs: Vital Signs Temperature 98.7 F 11/29/17 01:24 Pulse Rate 70 11/29/17 06:52 Respiratory Rate 18 11/29/17 06:52 Blood Pressure 155/70 11/29/17 06:52 O2 Sat by Pulse Oximetry (%) 96 11/28/17 23:48 Constitutional: Yes: No Distress, Other (not responding to commands. eyes closed. does not seem in distress,) HENT: Yes: Atraumatic Neck: Yes: Supple Cardiovascular: Yes: Regular Rate and Rhythm, Murmur (diastolic 3/4 heard at RUSB) Respiratory: Yes: Wheezes (slight at bases) Gastrointestinal: Yes: Soft Renal/: No: CVA Tenderness - Left, CVA Tenderness - Right Edema: No Neurological: Yes: Other (seems comfortbale eyes closed appears she is sleeping but does not respond to commands nor does she open her yes to commands) Labs: CBC, BMP 11/29/17 05:50 11/29/17 05:50 Imaging - Results Chest X-ray: Report Reviewed, Image Reviewed Cat Scan: Report Reviewed, Image Reviewed Assessment/Plan 66F with multiple medical problems present with altered mental status. Altered mental status Anemia Hypernatemia DM CKD stage 4 BING HLD Parkinson's disease Anemia Glaucoma Depression UTI dehydration Plan: Continue with 1/2NS but decrease rate to 75ml/hr monitor creatinine function-trending down. Baseline reportedly 2.9 now 3.1 send urine lytes urine creatinine Renal ultrasound bladder ultrasound Iron infusion Transfuse 2 units PRBCs outpatient CKD workup continue ABx per primary team for UTI avoid nephrotoxic drugs renally dose all medications Case discused with Dr. Brooks
[2017-11-29] MEDS ORDERED: SODIUM CHLORIDE 0.45% 1,000 ML IV SCH (12:45)
[2017-11-29] MEDS ORDERED: DEXTROSE 5%-1/3 NS - 500 ML IV SCH (13:00)
[2017-11-29] MEDS: ACETAMINOPHEN 325 MG TABLET (FP) PO PRN (14:06)
[2017-11-29] MEDS: DORZOLAMIDE 2% HCL OPHTHALMIC SOLUTION 10 ML BOTTLE OU SCH ×2 (14:08→22:56)
[2017-11-29] MEDS: BRIMONIDINE TARTRATE 0.1% OPHTHALMIC 5 ML BOTTLE OU SCH ×2 (14:08→22:55)
--- NOTE | 2017-11-29 14:14 | CON.GI ---
Consult Consult Specialty:: GI - History of Present Illness History of Present Illness: Chart reviewed. Events noted. The gavino mclain provide history. 66F who presents to the hospital from [facility] for altered mental status. As per chart, the intermediate staff noted that patient was not herself and was having worsening mental status. Patient apparently repeatedly usually calls out for staff and is awake and orientated . Her normal baseline is aggressive, calling out and alert and oriented. She has not been taking her medications and her po intake has been very poor. Patient has been on D5NS @50cc /hr since 11/26 according to intermediate records. In ED, upon laboratory assessment, patient was noted to be hypernatremic and to have an acute kidney injury. Her baseline Cr is reportedly 2.9 as she has CKD and on presentation creatinine was 3.4. There are no documented melena, hematochezia, hematemesis. 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 Cardio/Vascular: Yes: Hyperlipdemia Renal/: Yes: Renal Failure (chronic stage 4 ) ...: No Psych: Yes: Depression Endocrine: Yes: Diabetes Mellitus Additional Medical History: Glaucoma - Alcohol/Substance Use Hx Alcohol Use: No (unknown) - Smoking History Smoking history: Unknown if ever smoked Have you smoked in the past 12 months: No Home Medications - Allergies Allergies/Adverse Reactions: Allergies Allergy/AdvReac Type Severity Reaction Status Date / Time No Known Allergies Allergy Verified 11/28/17 11:40 - Home Medications Home Medications: Ambulatory Orders Aspirin [Aspirin EC] 81 mg PO DAILY 11/28/17 Brimonidine Tartrate [Alphagan P 0.1% -] 1 drop OU TID 11/28/17 Calcium Carbonate/Vitamin D3 [Calcium 500 + Vit D 200 Caplet] 1 each PO DAILY Carbidopa/Levodopa 25/100 [Sinemet 25/100 -] 1 each PO TID 11/28/17 Citalopram Hydrobromide [Celexa -] 10 mg PO DAILY 11/28/17 Clonazepam [Klonopin -] 0.5 mg PO BID 11/28/17 Cyanocobalamin (Vitamin B-12) [Vitamin B-12] 1,000 mcg PO DAILY 11/28/17 Docusate Sodium 300 mg PO HS 11/28/17 Donepezil HCl [Aricept] 10 mg PO DAILY 11/28/17 Dorzolamide HCl [Trusopt 2%] 1 drop OU TID 11/28/17 Ferrous Sulfate 325 mg PO BID 11/28/17 Folic Acid 1 mg PO DAILY 11/28/17 Glimepiride 1 mg PO DAILY 11/28/17 Haloperidol 0.5 mg PO HS 11/28/17 Insulin Glargine,Hum.rec.anlog [Lantus] 20 unit SQ HS 11/28/17 Latanoprost 0.005% Eye Drops [Xalatan 0.005% Eye Drops -] 1 drop OU HS 11/28/17 Pilocarpine 1% [Pilostat 1% -] 1 drop OU QID 11/28/17 Simvastatin [Zocor -] 20 mg PO HS 11/28/17 Sodium Chloride [Saline Nose [place]] 1 spray NS BID 11/28/17 Family Disease History - Family Disease History Family History: Unremarkable (non-contributory) Review of Systems Findings/Remarks: as per H&P Physical Exam-GI Vital Signs: Vital Signs Temperature 98.7 F 11/29/17 01:24 Pulse Rate 70 11/29/17 06:52 Respiratory Rate 18 11/29/17 06:52 Blood Pressure 155/70 11/29/17 06:52 O2 Sat by Pulse Oximetry (%) 96 11/28/17 23:48 Constitutional: Yes: No Distress, Pallor, Thin, Other ( restless) Cardiovascular: Yes: Regular Rate and Rhythm Respiratory: Yes: Regular Gastrointestinal Inspection: No: Distention ...Auscultate: Yes: Normoactive Bowel Sounds ...Palpate: No: Firm/Rigid, Guarding, Mass, Tenderness ...Rectal Exam: Yes: Other (will send stools to lab for hemoccult) Labs: CBC, BMP 11/29/17 05:50 11/29/17 05:50 INR, PTT INR 0.96 (0.82-1.09) 11/28/17 12:44 Imaging - Results Chest X-ray: Report Reviewed Cat Scan: Report Reviewed Assessment/Plan A 66 yof, NHR with worsened altered mental status and kidney function. Noted to be anemic, normocytic, normochromic, w/o external signs, or stigmata of recent history of GI bleeding. Hemodynamicaly stable. Family, reportedly, refused blood product transfusion, however the patient has a healthcare proxy. Consider brining up Hgb to 8 g/d, if healthcare proxy consents IVF as tolerating PPI IVPB daily Stool for hemoccult blood Daily CBC and stool exams for melena Recommend conservative approach with EGD and ,or colonoscopy only if significant , active GI bleed noted.
--- NOTE | 2017-11-29 14:15 | PN ---
Teaching Attending Note Name of Resident: Yaw Montelongo (Nephrology) ATTENDING PHYSICIAN STATEMENT I saw and evaluated the patient. I reviewed the resident's note and discussed the case with the resident. I agree with the resident's findings and plan as documented. Nephrology Consult Please see note filled out by resident. Pt is a 66 year old female with pmhx of CKD, CAD, anemia, and dementia who was sent in from the OR for altered mental status. Pt has CKD and follows with me in the office. She is lethargic and unable to give history. She is normally awake and alert. Pt has had poor po intake in the NH as well. I was called to evaluate her for BING. Her last creatinine in my office was 2.67 (GFR 18) on 08/22/17. PMHx ckd anemia dementia ros pt lethargic nkda social hx denies family hx unable to obtain Current Medications Generic Name Dose Route Start Last Admin Trade Name Freq PRN Reason Stop Dose Admin Acetaminophen 650 mg 11/29/17 13:50 11/29/17 14:06 Tylenol - PO 650 mg Q6H PRN Administration FEVER Aspirin 81 mg 11/29/17 10:00 11/29/17 10:17 Ecotrin - PO 81 mg DAILY GRETCHEN Administration Atorvastatin Calcium 10 mg 11/29/17 22:00 Lipitor - PO HS GRETCHEN Brimonidine Tartrate 1 drop 11/29/17 06:00 11/29/17 14:08 Alphagan P 0.1% - OU 1 drop TID GRETCHEN Administration Calcium Carbonate/Cholecalciferol 1 tab 11/29/17 10:00 11/29/17 10:17 Os-Isacc 500+D - PO 1 tab DAILY [facility] Administration Carbidopa/Levodopa 1 each 11/29/17 06:00 11/29/17 14:07 Sinemet 25/100 - PO 1 each TID GRETCHEN Administration Citalopram Hydrobromide 10 mg 11/29/17 10:00 11/29/17 10:18 Celexa - PO 10 mg DAILY GRETCHEN Administration Cyanocobalamin 1,000 mcg 11/29/17 10:00 11/29/17 10:18 Vitamin B12 - PO 1,000 mcg DAILY GRETCHEN Administration Docusate Sodium 300 mg 11/29/17 22:00 Colace - PO HS GRETCHEN Donepezil HCl 10 mg 11/29/17 10:00 11/29/17 10:17 Aricept - PO 10 mg DAILY [facility] Administration Dorzolamide HCl 1 drop 11/29/17 06:00 11/29/17 14:08 Trusopt 2% OU 1 drop TID G[facility] Administration Ferrous Sulfate 325 mg 11/29/17 10:00 11/29/17 10:17 Feosol - PO 325 mg BID GRET[facility] Administration Folic Acid 1 mg 11/29/17 10:00 11/29/17 10:18 Folic Acid - PO 1 mg DAILY [facility] Administration Heparin Sodium (Porcine) 5,000 unit 11/29/17 06:00 11/29/17 14:09 Heparin - SQ 5,000 unit TID [facility] Administration Dextrose/Sodium Chloride 500 mls @ 75 mls/hr 11/29/17 13:00 D5-1/3ns - IV ASDIR [facility] Insulin Aspart 1 vial 11/29/17 07:00 11/29/17 12:07 Novolog Vial Sliding Scale - SQ 3 units TIDAC [facility] Administration Protocol Insulin Aspart 1 vial 11/29/17 22:00 Novolog Vial Sliding Scale - SQ HS [facility] Protocol Insulin Detemir 10 units 11/29/17 22:00 Levemir Vial SQ HS [facility] Latanoprost 1 drop 11/29/17 22:00 Xalatan 0.005% Eye Drops - OU HS [facility] Pilocarpine HCl 1 drop 11/29/17 10:00 11/29/17 14:07 Pilostat 1% - OU 1 drop QID GRET[facility] Administration Laboratory Tests 11/28/17 11/28/17 11/28/17 12:44 12:44 12:44 WBC 6.1 Hgb 7.4 L Plt Count 152 PT with INR 10.80 INR 0.96 Sodium Potassium BUN Creatinine 3.4 H Creatine Kinase Urine Protein Urine Blood Ur Leukocyte Esterase 11/28/17 11/28/17 11/29/17 13:00 22:30 05:50 WBC 5.9 Hgb 6.5 L* D Plt Count 148 PT with INR INR Sodium 150 H Potassium 4.6 BUN Creatinine 3.2 H Creatine Kinase Urine Protein 3+ H Urine Blood Negative Ur Leukocyte Esterase 1+ H 11/29/17 05:50 WBC Hgb Plt Count PT with INR INR Sodium 149 H Potassium 4.1 BUN 68 H Creatinine 3.1 H Creatine Kinase 677 H Urine Protein Urine Blood Ur Leukocyte Esterase cxr neg ct head report reviewed Impression 1. CKD stage 4 2. anemia 3. change in mental status 4. hypernatremia 5. dehydration 6. Parkinson's disease 7. Depression Plan - cont with hypotonic fluids - pt has a free water deficit of about 1.57 liters - check urine lytes - avoid sedatives - repeat labs in am - neuro follow up - will follow Dr Brooks
--- NOTE | 2017-11-29 14:39 | PN ---
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, Physician Chief Complaint: ID Full note dictated - Current Medication List Current Medications: Active Medications Acetaminophen (Tylenol -) 650 mg PO Q6H PRN PRN Reason: FEVER Last Admin: 11/29/17 14:06 Dose: 650 mg Aspirin (Ecotrin -) 81 mg PO DAILY [facility] Last Admin: 11/29/17 10:17 Dose: 81 mg Atorvastatin Calcium (Lipitor -) 10 mg PO [facility] Brimonidine Tartrate (Alphagan P 0.1% -) 1 drop OU TID [facility] Last Admin: 11/29/17 14:08 Dose: 1 drop Calcium Carbonate/Cholecalciferol (Os-Isacc 500+D -) 1 tab PO DAILY [facility] Last Admin: 11/29/17 10:17 Dose: 1 tab Carbidopa/Levodopa (Sinemet 25/100 -) 1 each PO TID [facility] Last Admin: 11/29/17 14:07 Dose: 1 each Citalopram Hydrobromide (Celexa -) 10 mg PO DAILY [facility] Last Admin: 11/29/17 10:18 Dose: 10 mg Cyanocobalamin (Vitamin B12 -) 1,000 mcg PO DAILY [facility] Last Admin: 11/29/17 10:18 Dose: 1,000 mcg Docusate Sodium (Colace -) 300 mg PO HS [facility] Donepezil HCl (Aricept -) 10 mg PO DAILY [facility] Last Admin: 11/29/17 10:17 Dose: 10 mg Dorzolamide HCl (Trusopt 2%) 1 drop OU TID [facility] Last Admin: 11/29/17 14:08 Dose: 1 drop Ferrous Sulfate (Feosol -) 325 mg PO BID [facility] Last Admin: 11/29/17 10:17 Dose: 325 mg Folic Acid (Folic Acid -) 1 mg PO DAILY [facility] Last Admin: 11/29/17 10:18 Dose: 1 mg Heparin Sodium (Porcine) (Heparin -) 5,000 unit SQ TID [facility] Last Admin: 11/29/17 14:09 Dose: 5,000 unit Dextrose/Sodium Chloride (D5-1/3ns -) 500 mls @ 75 mls/hr IV ASDIR [facility] Insulin Aspart (Novolog Vial Sliding Scale -) 1 vial SQ TIDAC [facility] PRN Reason: Protocol Last Admin: 11/29/17 12:07 Dose: 3 units Insulin Aspart (Novolog Vial Sliding Scale -) 1 vial SQ HS [facility] PRN Reason: Protocol Insulin Detemir (Levemir Vial) 10 units SQ HS [facility] Latanoprost (Xalatan 0.005% Eye Drops -) 1 drop OU HS [facility] Pilocarpine HCl (Pilostat 1% -) 1 drop OU QID [facility] Last Admin: 11/29/17 14:07 Dose: 1 drop - Objective Vital Signs: Vital Signs Temperature 100.1 F H 11/29/17 14:16 Pulse Rate 68 11/29/17 14:16 Respiratory Rate 18 11/29/17 14:16 Blood Pressure 141/58 11/29/17 14:16 O2 Sat by Pulse Oximetry (%) 96 11/28/17 23:48 Labs: CBC, BMP 11/29/17 05:50 11/29/17 05:50 INR, PTT INR 0.96 (0.82-1.09) 11/28/17 12:44 Problem List - Problems (1) UTI (urinary tract infection) Code(s): N39.0 - URINARY TRACT INFECTION, SITE NOT SPECIFIED (2) BING (acute kidney injury) Code(s): N17.9 - ACUTE KIDNEY FAILURE, UNSPECIFIED (3) Altered mental status Code(s): R41.82 - ALTERED MENTAL STATUS, UNSPECIFIED Qualifiers: Altered mental status type: unspecified Qualified Code(s): R41.82 - Altered mental status, unspecified Assessment/Plan Assessment Treat for UTI GNB Plan Blood cultures CRP Renal sonogram Ceftriaxone 1 gr daily Margot PISANO
--- NOTE | 2017-11-29 15:25 | CONS ---
INFECTIOUS DISEASE CONSULTATION DATE OF CONSULTATION: DATE OF DICTATION: 11/29/2017 REASON FOR CONSULTATION: This is a 66-year-old female from [facility], admitted with chief complaint of altered mental status. HISTORY OF PRESENT ILLNESS: The patient currently does not respond to any commands. Apparently, this had been a worsening situation in the [place] [facility], and she was given intravenous fluids prior to admission and then noted to be hypernatremic with acute kidney injury and an admitting creatinine of 3.4. Here, she has had occasional low-grade temperature. She was given a dose of ceftriaxone for possible UTI as a one dose. I am asked to see her for further evaluation and treatment. PAST MEDICAL HISTORY: Includes dementia, Parkinson disease, chronic kidney disease, hyperlipidemia, depression, diabetes, glaucoma. MEDICATIONS: Aspirin, calcium, B12, iron, folic acid, glimepiride, haloperidol, insulin, simvastatin. ALLERGIES: None known. SOCIAL HISTORY: custodial resident. Unable to find out if she smoked previously or drank alcohol. REVIEW OF SYSTEMS: All systems reviewed and noncontributory. FAMILY HISTORY: Unobtainable. PHYSICAL EXAMINATION: General: Revealed an elderly woman in no acute distress, with her eyes closed, not responding to verbal stimuli. Vital Signs: The temperature was 100.1, pulse 68, blood pressure 140/58, respirations 16. Neck: Supple. Lungs: Clear. Heart: S1, S2. Regular rhythm without audible murmur. Abdomen: Soft, nontender, without hepatosplenomegaly. Extremities: Without clubbing, cyanosis, or edema. LABORATORY DATA: The white count was 6.1, hemoglobin 7.4, hematocrit 23.6. Hematocrit today 20, platelets of 152. INR 0.96. BUN 68, creatinine 3.1. Ferritin 617. INR 0.17. Urinalysis with 1% leukocyte esterase, 12 WBCs, 1 RBC. Urine culture shows a proteus species, possible lactose-fermenting gram-negative bacilli. Chest x-ray shows no acute pulmonary infiltrate. ASSESSMENT: A 66-year-old female with known dementia, presents with worsening deterioration of mental status, possibly secondary to a combination of metabolic factors with metabolic encephalopathy, with an underlying urinary tract infection as an additional possibility. At this point, she should be treated for the gram-negative isi cultured. We will treat her empirically with ceftriaxone. We will obtain a set of blood cultures. Note that she has already received a dose of antibiotics on admission. Await final urine culture and obtain a renal sonogram which has been ordered. MIREILLE ARROYO M.D. [id number]
--- NOTE | 2017-11-29 15:28 | CON.CARD ---
Consult Consult Specialty:: Cardiology Reason for Consultation:: Positive troponin - History of Present Illness Chief Complaint: Altered mental status History of Present Illness: This is a 66 year old female NHR with a PMH of anemia, CRI, CAD, and dementia. She presdents with a change in mental status. She was noted to have a severe anemia (HCT 20%) and also noted to have positive Troponin 0.18, 0.18, 0.17. EKG NSR at 63 BPM with left axis deviation and NSSTTW changes. - Past Medical History [employer]: Yes: Dementia, Parkinson's Cardio/Vascular: Yes: Hyperlipdemia Renal/: Yes: Renal Failure (chronic stage 4 ) ...: No Psych: Yes: Depression Endocrine: Yes: Diabetes Mellitus Additional Medical History: Glaucoma - Alcohol/Substance Use Hx Alcohol Use: No (unknown) - Smoking History Smoking history: Unknown if ever smoked Have you smoked in the past 12 months: No Home Medications - Allergies Allergies/Adverse Reactions: Allergies Allergy/AdvReac Type Severity Reaction Status Date / Time No Known Allergies Allergy Verified 11/28/17 11:40 - Home Medications Home Medications: Ambulatory Orders Aspirin [Aspirin EC] 81 mg PO DAILY 11/28/17 Brimonidine Tartrate [Alphagan P 0.1% -] 1 drop OU TID 11/28/17 Calcium Carbonate/Vitamin D3 [Calcium 500 + Vit D 200 Caplet] 1 each PO DAILY Carbidopa/Levodopa 25/100 [Sinemet 25/100 -] 1 each PO TID 11/28/17 Citalopram Hydrobromide [Celexa -] 10 mg PO DAILY 11/28/17 Clonazepam [Klonopin -] 0.5 mg PO BID 11/28/17 Cyanocobalamin (Vitamin B-12) [Vitamin B-12] 1,000 mcg PO DAILY 11/28/17 Docusate Sodium 300 mg PO HS 11/28/17 Donepezil HCl [Aricept] 10 mg PO DAILY 11/28/17 Dorzolamide HCl [Trusopt 2%] 1 drop OU TID 11/28/17 Ferrous Sulfate 325 mg PO BID 11/28/17 Folic Acid 1 mg PO DAILY 11/28/17 Glimepiride 1 mg PO DAILY 11/28/17 Haloperidol 0.5 mg PO HS 11/28/17 Insulin Glargine,Hum.rec.anlog [Lantus] 20 unit SQ HS 11/28/17 Latanoprost 0.005% Eye Drops [Xalatan 0.005% Eye Drops -] 1 drop OU HS 11/28/17 Pilocarpine 1% [Pilostat 1% -] 1 drop OU QID 11/28/17 Simvastatin [Zocor -] 20 mg PO HS 11/28/17 Sodium Chloride [Saline [place]ose [place]] 1 spray NS BID 11/28/17 Review of Systems Findings/Remarks: As Per HPI Vital Signs: Vital Signs Temperature 100.1 F H 11/29/17 14:16 Pulse Rate 68 11/29/17 14:16 Respiratory Rate 18 11/29/17 14:16 Blood Pressure 141/58 11/29/17 14:16 O2 Sat by Pulse Oximetry (%) 96 11/28/17 23:48 Constitutional: Yes: Pallor (Sleeping) HENT: Yes: WNL Neck: Yes: WNL Respiratory: Yes: CTA Bilaterally Gastrointestinal: Yes: Soft Cardiovascular: Yes: Regular Rate and Rhythm (NL S1S2, no MRHG) JVD: No Edema: No Neurological: Yes: Weakness (Sleeping, did notn awake to verbal), Other - Other Data Labs, Other Data: CBC, BMP 11/29/17 05:50 11/29/17 05:50 INR, PTT INR 0.96 (0.82-1.09) 11/28/17 12:44 Troponin, BNP 11/28/17 11/28/17 11/29/17 22:00 22:30 05:50 Troponin I 0.17 H Cancelled 0.17 H Troponin, BNP 11/28/17 11/28/17 11/29/17 22:00 22:30 05:50 Troponin I 0.17 H Cancelled 0.17 H Assessment/Plan Positive Troponin Likely demand ischemia exacerbated by severe anemia Follow Troponin trends Consider an echocardiogram to evaluate LV function Continue atorvastatin Continue Aspirin if ok with GI Agree with PRBC tx Conservative care
[2017-11-29] MEDS ORDERED: [UNRECOGNIZED DRUG - OTHER] SQ SCH (22:00)
[2017-11-29] MEDS ORDERED: INSULIN GLARGINE HUM REC ANLOG 10 UNIT SQ SCH (22:00)
[2017-11-29] MEDS: LATANOPROST 0.005% OPHTH SOLN 2.5ML BOTTLE OU SCH (22:57)
[2017-11-29] MEDS: ATORVASTATIN CA 10 MG TABLET (FP) PO SCH (22:57)
[2017-11-29] MEDS: DOCUSATE SODIUM 100 MG CAPSULE (FP) PO SCH (22:57)
[2017-11-29] MEDS: INSULIN DETEMIR 100 UNITS/ML MDV SQ SCH (23:59)
--- NOTE | 2017-11-30 04:59 | HOSP ---
Physical Examination Vital Signs: Vital Signs Temperature 99.5 F 11/30/17 01:00 Pulse Rate 70 11/30/17 01:00 Respiratory Rate 20 11/30/17 01:00 Blood Pressure 185/75 11/30/17 01:00 O2 Sat by Pulse Oximetry (%) 100 11/29/17 21:00 Labs: CBC, BMP 11/29/17 05:50 11/29/17 05:50 Hospitalist Encounter Assessment: called to see pt for IV infiltration. IV infiltrated at end of transfusion. Left wrist/forearm noted with induration, ecchymotic. no excessive warmth. A&P iv infiltration - warm compress as tolerate - monitor site for s/s infection.
[2017-11-30] MEDS: BRIMONIDINE TARTRATE 0.1% OPHTHALMIC 5 ML BOTTLE OU SCH ×3 (06:53→21:34)
[2017-11-30] MEDS: DORZOLAMIDE 2% HCL OPHTHALMIC SOLUTION 10 ML BOTTLE OU SCH ×3 (06:53→21:34)
[2017-11-30] MEDS: CARBIDOPA/LEVODOPA 25/100 TABLET (FP) PO SCH ×3 (06:54→21:35)
[2017-11-30] MEDS: HEPARIN NA (PORCINE) 5,000 UNITS/ML 1ML VIAL SQ SCH ×3 (06:54→21:35)
[2017-11-30] MEDS: INSULIN SLIDING SCALE (NOVOLOG) 1 VIAL SQ SCH ×4 (06:54→21:56)
[2017-11-30 07:35] LABS: BASO % 0.2 % (0-2.0); EOS % 0.1 % (0-4.5); HEMATOCRIT 28.5 % (32.4-45.2); HEMOGLOBIN 9.5 GM/dL (10.7-15.3); LYMPH % 7.4 % (8-40); MCH 30.3 pg (25.7-33.7); MCHC 33.3 g/dl (32.0-36.0); MEAN PLT VOLUME 7.2 fl (7.5-11.1); MONO % 5.8 % (3.8-10.2); NEUT % 86.5 % (42.8-82.8); PLATELET COUNT 130 K/MM3 (134-434); RBC 3.13 M/mm3 (3.60-5.2); RDW 15.1 % (11.6-15.6)
[2017-11-30 08:05] LABS: CHLORIDE 118 mmol/L (98-107); POTASSIUM 3.5 mmol/L (3.5-5.1); SODIUM 152 mmol/L (136-145)
[2017-11-30 08:16] LABS: ALBUMIN 2.3 g/dl (3.4-5.0); ALK PHOS 75 U/L (45-117); ANION GAP 10 (8-16); BILIRUBIN,TOTAL 0.6 mg/dL (0.2-1.0); BLOOD UREA NITROGEN 67 mg/dL (7-18); CALCIUM 8.1 mg/dL (8.5-10.1); CO2 24 mmol/L (21-32); GLUCOSE,RANDOM 190 mg/dL (74-106); SGOT/AST 51 U/L (15-37); SGPT/ALT 11 U/L (12-78); TOT PROT 5.8 g/dl (6.4-8.2)
--- NOTE | 2017-11-30 09:25 | PN ---
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 (short form) - Note 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: Neurology History of Present Illness Patient is a 66-year-old female past medical history of anemia, stage IV CAD, dementia, presents to the emergency department today from [facility] with the chief complaint of altered mental status. History per notes as patient is nonverbal. She states that the patient is usually A&Ox3, verbal calling out and aggressive. During my evaluation has been nonverbal, restless, and not participating with examiner. CT head reviewed and did not show acute changes. Admitted for further mgmt of alerted mental status, toxic metabolic encephalopathy. Has underlying dementia, on Donepezil. Received blood transfusion, hemoglobin 9.5/28.5, improved. Still lethargic, ID following, getting treatment for UTI, on Ceftriaxone. Active Medications Acetaminophen (Tylenol -) 650 mg PO Q6H PRN PRN Reason: FEVER Last Admin: 11/29/17 14:06 Dose: 650 mg Aspirin (Ecotrin -) 81 mg PO DAILY [facility] Last Admin: 11/29/17 10:17 Dose: 81 mg Atorvastatin Calcium (Lipitor -) 10 mg PO HS [facility] Last Admin: 11/29/17 22:57 Dose: 10 mg Brimonidine Tartrate (Alphagan P 0.1% -) 1 drop OU TID [facility] Last Admin: 11/30/17 06:53 Dose: 1 drop Calcium Carbonate/Cholecalciferol (Os-Isacc 500+D -) 1 tab PO DAILY [facility] Last Admin: 11/29/17 10:17 Dose: 1 tab Carbidopa/Levodopa (Sinemet 25/100 -) 1 each PO TID [facility] Last Admin: 11/30/17 06:54 Dose: 1 each Citalopram Hydrobromide (Celexa -) 10 mg PO DAILY [facility] Last Admin: 11/29/17 10:18 Dose: 10 mg Cyanocobalamin (Vitamin B12 -) 1,000 mcg PO DAILY [facility] Last Admin: 11/29/17 10:18 Dose: 1,000 mcg Docusate Sodium (Colace -) 300 mg PO HS [facility] Last Admin: 11/29/17 22:57 Dose: 300 mg Donepezil HCl (Aricept -) 10 mg PO DAILY [facility] Last Admin: 11/29/17 10:17 Dose: 10 mg Dorzolamide HCl (Trusopt 2%) 1 drop OU TID [facility] Last Admin: 01/19/18 06:53 Dose: 1 drop Ferrous Sulfate (Feosol -) 325 mg PO BID [facility] Last Admin: 11/29/17 22:57 Dose: 325 mg Folic Acid (Folic Acid -) 1 mg PO DAILY [facility] Last Admin: 11/29/17 10:18 Dose: 1 mg Heparin Sodium (Porcine) (Heparin -) 5,000 unit SQ TID [facility] Last Admin: 11/30/17 06:54 Dose: 5,000 unit Dextrose/Sodium Chloride (D5-1/3ns -) 500 mls @ 75 mls/hr IV ASDIR [facility] Last Admin: 11/29/17 14:00 Dose: 75 mls/hr CEFTRIAXONE 1 G/50 ML PREMIX (Ceftriaxone 1 Gm-D5w Bag) 50 mls @ 100 mls/hr IVPB DAILY [facility] Insulin Aspart (Novolog Vial Sliding Scale -) 1 vial SQ TIDAC [facility] PRN Reason: Protocol Last Admin: 11/30/17 06:54 Dose: Not Given Insulin Aspart (Novolog Vial Sliding Scale -) 1 vial SQ [facility] PRN Reason: Protocol Last Admin: 11/29/17 23:59 Dose: Not Given Insulin Detemir (Levemir Vial) 10 units SQ HS [facility] Last Admin: 11/29/17 23:59 Dose: Not Given Latanoprost (Xalatan 0.005% Eye Drops -) 1 drop OU HS [facility] Last Admin: 11/29/17 22:57 Dose: 1 drop Pilocarpine HCl (Pilostat 1% -) 1 drop OU QID [facility] Last Admin: 11/29/17 22:56 Dose: 1 drop *Physical Exam Vital Signs Temperature 98.9 F 11/30/17 08:00 Pulse Rate 77 11/30/17 08:00 Respiratory Rate 24 11/30/17 08:00 Blood Pressure 162/80 11/30/17 08:00 O2 Sat by Pulse Oximetry (%) 100 11/29/17 21:00 GENERAL: Well developed, well nourished. Awake and alert to name only. No acute distress. Reaching out of exam bed. HEENT: Normocephalic, atraumatic. PERRLA, EOMI. No conjunctival pallor. Sclera are non- icteric. Moist mucous membranes. Oropharynx is clear. NECK: Supple. Full ROM. No JVD. Carotid pulses 2+ and symmetric, without bruits. No thyromegaly. No lymphadenopathy. CARDIOVASCULAR: Regular rate and rhythm. Systolic murmur II/ along the R and L 2nd/3rd intercostal space . No rubs, or gallops. Distal pulses are 2+ and symmetric. PULMONARY: No evidence of respiratory distress. Lungs clear to auscultation bilaterally. No wheezing, rales or rhonchi. ABDOMINAL: Soft. Non-tender. Non-distended. No rebound or guarding. No organomegaly. Normoactive bowel sounds. MUSCULOSKELETAL Normal range of motion at all joints. No bony deformities or tenderness. No CVA tenderness. EXTREMITIES: No cyanosis. No clubbing. No edema. No calf tenderness. SKIN: Warm and dry. Normal capillary refill. No rashes. No jaundice. NEUROLOGICAL: Unable to perform a neuro exam. Pt. is non-verbal, not responding to commands and aggressive. Toes are down-going bilaterally. Gait is not observed. PSYCHIATRIC: Cooperative. Good eye contact. Appropriate mood and affect. CBCD WBC 7.0 K/mm3 (4.0-10.0) 11/30/17 06:50 RBC 3.13 M/mm3 (3.60-5.2) L D 11/30/17 06:50 Hgb 9.5 GM/dL (10.7-15.3) L D 11/30/17 06:50 Hct 28.5 % (32.4-45.2) L D 11/30/17 06:50 MCV 91.0 fl (80-96) 11/30/17 06:50 MCHC 33.3 g/dl (32.0-36.0) 11/30/17 06:50 RDW 15.1 % (11.6-15.6) 11/30/17 06:50 Plt Count 130 K/MM3 (134-434) L 11/30/17 06:50 MPV 7.2 fl (7.5-11.1) L 11/30/17 06:50 CMP Sodium 152 mmol/L (136-145) H 11/30/17 06:50 Potassium 3.5 mmol/L (3.5-5.1) 11/30/17 06:50 Chloride 118 mmol/L (98-107) H 01/19/18 06:50 Carbon Dioxide 24 mmol/L (21-32) 11/30/17 06:50 Anion Gap 10 (8-16) 11/30/17 06:50 BUN 67 mg/dL (7-18) H 11/30/17 06:50 Creatinine 3.0 mg/dL (0.55-1.02) H 11/30/17 06:50 Creat Clearance w eGFR 15.52 (>60) 11/30/17 06:50 Calcium 8.1 mg/dL (8.5-10.1) L 11/30/17 06:50 Total Bilirubin 0.6 mg/dL (0.2-1.0) D 11/30/17 06:50 AST 51 U/L (15-37) H 11/30/17 06:50 ALT 11 U/L (12-78) L 11/30/17 06:50 Alkaline Phosphatase 75 U/L (45-117) 11/30/17 06:50 Total Protein 5.8 g/dl (6.4-8.2) L 11/30/17 06:50 Albumin 2.3 g/dl (3.4-5.0) L 11/30/17 06:50 CT head reviewed Medical Decision Making 66-year-old female past medical history of anemia, stage IV CAD, dementia, presents to the emergency department today from [facility] with the chief complaint of altered mental status. History per notes as patient is nonverbal. She states that the patient is usually A&Ox3, verbal calling out and aggressive. During my evaluation has been nonverbal, restless. CT head reviewed and did not show acute changes. For underlying dementia, continue on Donepezil. Hemoglobin improved s/p transfusion ID following for UTI On ceftriaxone Continue medical optimization Nephrology follow up regarding hypernatermia and CKD Patient with alerted mental status, toxic metabolic encephalopathy which can be caused by any of above
[2017-11-30] MEDS: CEFTRIAXONE 1 G/50 ML PREMIX 50 ML IVPB SCH (11:36)
[2017-11-30] MEDS: CYANOCOBALAMIN 1,000 MCG TABLET (FP) PO SCH (11:37)
[2017-11-30] MEDS: DONEPEZIL HCL 10 MG TABLET (FP) PO SCH (11:38)
[2017-11-30] MEDS: FOLIC ACID 1 MG TABLET (FP) PO SCH (11:38)
[2017-11-30] MEDS: ASPIRIN COATED 81 MG TABLET.EC PO SCH (11:38)
[2017-11-30] MEDS: CALCIUM 500MG/VIT-D 200 UNITS COMBO TABLET (FP) PO SCH (11:38)
[2017-11-30] MEDS: CITALOPRAM HYDROBROMIDE 10 MG TABLET (FP) PO SCH (11:38)
[2017-11-30] MEDS: FERROUS SO4 325 MG TABLET (FP) PO SCH ×2 (11:39→21:35)
[2017-11-30] MEDS: PILOCARPINE 1% OPHTHALMIC SOLUTION 15 ML BOTTLE OU SCH ×4 (11:40→21:35)
--- NOTE | 2017-11-30 14:07 | PN ---
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, Physician History of Present Illness: Pt seen and examined at bedside. She is awake but not interactive. - Current Medication List Current Medications: Active Medications Acetaminophen (Tylenol -) 650 mg PO Q6H PRN PRN Reason: FEVER Last Admin: 11/29/17 14:06 Dose: 650 mg Aspirin (Ecotrin -) 81 mg PO DAILY [facility] Last Admin: 11/30/17 11:38 Dose: 81 mg Atorvastatin Calcium (Lipitor -) 10 mg PO HS [facility] Last Admin: 11/29/17 22:57 Dose: 10 mg Brimonidine Tartrate (Alphagan P 0.1% -) 1 drop OU TID [facility] Last Admin: 11/30/17 06:53 Dose: 1 drop Calcium Carbonate/Cholecalciferol (Os-Isacc 500+D -) 1 tab PO DAILY [facility] Last Admin: 11/30/17 11:38 Dose: 1 tab Carbidopa/Levodopa (Sinemet 25/100 -) 1 each PO TID [facility] Last Admin: 11/30/17 06:54 Dose: 1 each Citalopram Hydrobromide (Celexa -) 10 mg PO DAILY [facility] Last Admin: 11/30/17 11:38 Dose: 10 mg Cyanocobalamin (Vitamin B12 -) 1,000 mcg PO DAILY [facility] Last Admin: 11/30/17 11:37 Dose: 1,000 mcg Docusate Sodium (Colace -) 300 mg PO HS [facility] Last Admin: 11/29/17 22:57 Dose: 300 mg Donepezil HCl (Aricept -) 10 mg PO DAILY [facility] Last Admin: 11/30/17 11:38 Dose: 10 mg Dorzolamide HCl (Trusopt 2%) 1 drop OU TID [facility] Last Admin: 11/30/17 06:53 Dose: 1 drop Ferrous Sulfate (Feosol -) 325 mg PO BID [facility] Last Admin: 11/30/17 11:39 Dose: 325 mg Folic Acid (Folic Acid -) 1 mg PO DAILY [facility] Last Admin: 11/30/17 11:38 Dose: 1 mg Heparin Sodium (Porcine) (Heparin -) 5,000 unit SQ TID [facility] Last Admin: 11/30/17 06:54 Dose: 5,000 unit Dextrose/Sodium Chloride (D5-1/3ns -) 500 mls @ 75 mls/hr IV ASDIR [facility] Last Admin: 11/29/17 14:00 Dose: 75 mls/hr CEFTRIAXONE 1 G/50 ML PREMIX (Ceftriaxone 1 Gm-D5w Bag) 50 mls @ 100 mls/hr IVPB DAILY [facility] Last Admin: 11/30/17 11:36 Dose: 100 mls/hr Insulin Aspart (Novolog Vial Sliding Scale -) 1 vial SQ TIDAC [facility] PRN Reason: Protocol Last Admin: 11/30/17 12:50 Dose: 8 units Insulin Aspart (Novolog Vial Sliding Scale -) 1 vial SQ HS [facility] PRN Reason: Protocol Last Admin: 11/29/17 23:59 Dose: Not Given Insulin Detemir (Levemir Vial) 10 units SQ HS [facility] Last Admin: 11/29/17 23:59 Dose: Not Given Latanoprost (Xalatan 0.005% Eye Drops -) 1 drop OU HS [facility] Last Admin: 11/29/17 22:57 Dose: 1 drop Pilocarpine HCl (Pilostat 1% -) 1 drop OU QID [facility] Last Admin: 11/30/17 11:40 Dose: 1 drop - Objective Vital Signs: Vital Signs Temperature 98.9 F 11/30/17 08:00 Pulse Rate 77 11/30/17 08:00 Respiratory Rate 24 11/30/17 08:00 Blood Pressure 162/80 11/30/17 08:00 O2 Sat by Pulse Oximetry (%) 100 11/29/17 21:00 Constitutional: Yes: Mild Distress HENT: Yes: Atraumatic Neck: Yes: Supple Cardiovascular: Yes: S1, S2 Respiratory: Yes: CTA Bilaterally Gastrointestinal: Yes: Soft Genitourinary: Yes: Incontinence Musculoskeletal: Yes: Muscle Weakness Edema: No Neurological: Yes: Confusion Labs: CBC, BMP 11/30/17 06:50 11/30/17 06:50 INR, PTT INR 0.96 (0.82-1.09) 11/28/17 12:44 Problem List - Problems (1) BING (acute kidney injury) Code(s): N17.9 - ACUTE KIDNEY FAILURE, UNSPECIFIED (2) Altered mental status Code(s): R41.82 - ALTERED MENTAL STATUS, UNSPECIFIED Qualifiers: Altered mental status type: unspecified Qualified Code(s): R41.82 - Altered mental status, unspecified (3) Hypernatremia Code(s): E87.0 - HYPEROSMOLALITY AND HYPERNATREMIA Assessment/Plan Current Medications Generic Name Dose Route Start Last Admin Trade Name Freq PRN Reason Stop Dose Admin Acetaminophen 650 mg 11/29/17 13:50 11/29/17 14:06 Tylenol - PO 650 mg Q6H PRN Administration FEVER Aspirin 81 mg 11/29/17 10:00 11/30/17 11:38 Ecotrin - PO 81 mg DAILY [facility] Administration Atorvastatin Calcium 10 mg 11/29/17 22:00 11/29/17 22:57 Lipitor - PO 10 mg HS [facility] Administration Brimonidine Tartrate 1 drop 11/29/17 06:00 11/30/17 06:53 Alphagan P 0.1% - OU 1 drop TID [facility] Administration Calcium Carbonate/Cholecalciferol 1 tab 11/29/17 10:00 11/30/17 11:38 Os-Isacc 500+D - PO 1 tab DAILY [facility] Administration Carbidopa/Levodopa 1 each 11/29/17 06:00 11/30/17 06:54 Sinemet 25/100 - PO 1 each TID [facility] Administration Citalopram Hydrobromide 10 mg 11/29/17 10:00 11/30/17 11:38 Celexa - PO 10 mg DAILY [facility] Administration Cyanocobalamin 1,000 mcg 11/29/17 10:00 11/30/17 11:37 Vitamin B12 - PO 1,000 mcg DAILY [facility] Administration Docusate Sodium 300 mg 11/29/17 22:00 11/29/17 22:57 Colace - PO 300 mg HS [facility] Administration Donepezil HCl 10 mg 11/29/17 10:00 11/30/17 11:38 Aricept - PO 10 mg DAILY [facility] Administration Dorzolamide HCl 1 drop 11/29/17 06:00 11/30/17 06:53 Trusopt 2% OU 1 drop TID [facility] Administration Ferrous Sulfate 325 mg 11/29/17 10:00 11/30/17 11:39 Feosol - PO 325 mg BID [facility] Administration Folic Acid 1 mg 11/29/17 10:00 11/30/17 11:38 Folic Acid - PO 1 mg DAILY [facility] Administration Heparin Sodium (Porcine) 5,000 unit 11/29/17 06:00 11/30/17 06:54 Heparin - SQ 5,000 unit TID [facility] Administration Dextrose/Sodium Chloride 500 mls @ 75 mls/hr 11/29/17 13:00 11/29/17 14:00 D5-1/3ns - IV 75 mls/hr ASDIR [facility] Administration CEFTRIAXONE 1 G/50 ML PREMIX 50 mls @ 100 mls/hr 11/30/17 10:00 11/30/17 11: 36 Ceftriaxone 1 Gm-D5w Bag IVPB 100 mls/hr DAILY [facility] Administration Insulin Aspart 1 vial 11/29/17 07:00 11/30/17 12:50 Novolog Vial Sliding Scale - SQ 8 units TIDAC [facility] Administration Protocol Insulin Aspart 1 vial 11/29/17 22:00 11/29/17 23:59 Novolog Vial Sliding Scale - SQ Not Given HS [facility] Protocol Insulin Detemir 10 units 11/29/17 22:00 11/29/17 23:59 Levemir Vial SQ Not Given HS [facility] Latanoprost 1 drop 11/29/17 22:00 11/29/17 22:57 Xalatan 0.005% Eye Drops - OU 1 drop HS [facility] Administration Pilocarpine HCl 1 drop 11/29/17 10:00 11/30/17 11:40 Pilostat 1% - OU 1 drop QID [facility] Administration Impression 1. CKD stage 4 2. anemia 3. change in mental status 4. hypernatremia 5. dehydration 6. Parkinson's disease 7. Depression Plan - can change fluids to d5w - repeat labs in am - pt has poor po intake - sodium is worse today - avoid sedatives - neuro follow up - will follow
[2017-11-30] MEDS ORDERED: POTASSIUM CHLORIDE TABS 20 MEQ TABLET.ER (FP) PO ONE (14:10)
--- NOTE | 2017-11-30 14:14 | PN ---
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, [employer] - Note 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: Selected Entries 11/30/17 11/30/17 11/30/17 01:00 06:00 08:00 Breakfast Lunch Temperature 99.5 F 98.2 F 98.9 F 11/30/17 12:34 Breakfast 75% Lunch 75% Temperature Laboratory Tests 11/30/17 06:50 WBC 7.0 Pt doing well on pureed diet and necar thick liuids. Non communmicative
--- NOTE | 2017-11-30 14:46 | PN ---
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, Physician Chief Complaint: Change in mental status. History of Present Illness: This is a 66 year old female NHR with a PMH of anemia, CRI, CAD, and dementia. She presdents with a change in mental status. She was noted to have a severe anemia (HCT 20%) and also noted to have positive Troponin 0.18, 0.18, 0.17. EKG NSR at 63 BPM with left axis deviation and NSSTTW changes. - Current Medication List Current Medications: Active Medications Acetaminophen (Tylenol -) 650 mg PO Q6H PRN PRN Reason: FEVER Last Admin: 11/29/17 14:06 Dose: 650 mg Aspirin (Ecotrin -) 81 mg PO DAILY [facility] Last Admin: 11/30/17 11:38 Dose: 81 mg Atorvastatin Calcium (Lipitor -) 10 mg PO [facility] Last Admin: 11/29/17 22:57 Dose: 10 mg Brimonidine Tartrate (Alphagan P 0.1% -) 1 drop OU TID [facility] Last Admin: 11/30/17 06:53 Dose: 1 drop Calcium Carbonate/Cholecalciferol (Os-Isacc 500+D -) 1 tab PO DAILY [facility] Last Admin: 11/30/17 11:38 Dose: 1 tab Carbidopa/Levodopa (Sinemet 25/100 -) 1 each PO TID [facility] Last Admin: 11/30/17 06:54 Dose: 1 each Citalopram Hydrobromide (Celexa -) 10 mg PO DAILY [facility] Last Admin: 11/30/17 11:38 Dose: 10 mg Cyanocobalamin (Vitamin B12 -) 1,000 mcg PO DAILY [facility] Last Admin: 11/30/17 11:37 Dose: 1,000 mcg Docusate Sodium (Colace -) 300 mg PO [facility] Last Admin: 11/29/17 22:57 Dose: 300 mg Donepezil HCl (Aricept -) 10 mg PO DAILY [facility] Last Admin: 11/30/17 11:38 Dose: 10 mg Dorzolamide HCl (Trusopt 2%) 1 drop OU TID [facility] Last Admin: 11/30/17 06:53 Dose: 1 drop Ferrous Sulfate (Feosol -) 325 mg PO BID [facility] Last Admin: 11/30/17 11:39 Dose: 325 mg Folic Acid (Folic Acid -) 1 mg PO DAILY [facility] Last Admin: 11/30/17 11:38 Dose: 1 mg Heparin Sodium (Porcine) (Heparin -) 5,000 unit SQ TID [facility] Last Admin: 11/30/17 06:54 Dose: 5,000 unit CEFTRIAXONE 1 G/50 ML PREMIX (Ceftriaxone 1 Gm-D5w Bag) 50 mls @ 100 mls/hr IVPB DAILY [facility] Last Admin: 11/30/17 11:36 Dose: 100 mls/hr Dextrose (D5w -) 1,000 mls @ 75 mls/hr IV [facility]IR [facility] Insulin Aspart (Novolog Vial Sliding Scale -) 1 vial SQ TIDAC [facility] PRN Reason: Protocol Last Admin: 11/30/17 12:50 Dose: 8 units Insulin Aspart (Novolog Vial Sliding Scale -) 1 vial SQ HS [facility] PRN Reason: Protocol Last Admin: 11/29/17 23:59 Dose: Not Given Insulin Detemir (Levemir Vial) 10 units SQ HS [facility] Last Admin: 11/29/17 23:59 Dose: Not Given Latanoprost (Xalatan 0.005% Eye Drops -) 1 drop OU HS [facility] Last Admin: 11/29/17 22:57 Dose: 1 drop Pilocarpine HCl (Pilostat 1% -) 1 drop OU QID [facility] Last Admin: 11/30/17 11:40 Dose: 1 drop - Objective Vital Signs: Vital Signs Temperature 98.9 F 11/30/17 08:00 Pulse Rate 77 11/30/17 08:00 Respiratory Rate 24 11/30/17 08:00 Blood Pressure 162/80 11/30/17 08:00 O2 Sat by Pulse Oximetry (%) 100 11/29/17 21:00 Constitutional: Yes: No Distress Neck: Yes: Supple Cardiovascular: Yes: Regular Rate and Rhythm, S1, S2. No: JVD Respiratory: Yes: CTA Bilaterally Gastrointestinal: Yes: Soft Edema: No Labs: CBC, BMP 11/30/17 06:50 11/30/17 06:50 INR, PTT INR 0.96 (0.82-1.09) 11/28/17 12:44 Assessment/Plan This is a 66 year old female NHR with a PMH of anemia, CRI, CAD, and dementia. She presdents with a change in mental status. She was noted to have a severe anemia (HCT 20%) and also noted to have positive Troponin 0.18, 0.18, 0.17. EKG NSR at 63 BPM with left axis deviation and NSSTTW changes. -Troponins stable at 0.17 with Cr of 3.0 in setting of severe anemia. S/p transfusion Aspirin if ok with GI No events on telemetry. Can dc tele. No further cardiac work up Will sign off.
[2017-11-30] MEDS: DEXTROSE 5%-WATER - 1,000 ML IV SCH (15:03)
--- NOTE | 2017-11-30 15:34 | PN ---
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 (short form) - Note 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: ID Ceftriaxone NAD Selected Entries 11/30/17 15:16 Temperature 99.6 F Pulse Rate 85 Respiratory 20 Rate Blood Pressure 163/87 Laboratory Tests 11/28/17 11/30/17 11/30/17 13:00 06:50 06:50 WBC 7.0 Hgb 9.5 L D Hct 28.5 L D Plt Count 130 L BUN 67 H Creatinine 3.0 H Creat Clearance w eGFR 15.52 Ur Leukocyte Esterase 1+ H Urine WBC (Auto) 12 Urine RBC (Auto) <1 Assessment Uncomplicated UTI Morganella Plan Continue current therapy short cource treatment Margot PISANO Problem List - Problems (1) UTI (urinary tract infection) Code(s): N39.0 - URINARY TRACT INFECTION, SITE NOT SPECIFIED (2) BING (acute kidney injury) Code(s): N17.9 - ACUTE KIDNEY FAILURE, UNSPECIFIED (3) Altered mental status Code(s): R41.82 - ALTERED MENTAL STATUS, UNSPECIFIED Qualifiers: Altered mental status type: unspecified Qualified Code(s): R41.82 - Altered mental status, unspecified
--- NOTE | 2017-11-30 16:15 | PN ---
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, Physician History of Present Illness: Chart reviewed. Events noted. The patient cannot provide history. Clinically better, remains non-communicative - Current Medication List Current Medications: Active Medications Acetaminophen (Tylenol -) 650 mg PO Q6H PRN PRN Reason: FEVER Last Admin: 11/29/17 14:06 Dose: 650 mg Aspirin (Ecotrin -) 81 mg PO DAILY [facility] Last Admin: 11/30/17 11:38 Dose: 81 mg Atorvastatin Calcium (Lipitor -) 10 mg PO HS [facility] Last Admin: 11/29/17 22:57 Dose: 10 mg Brimonidine Tartrate (Alphagan P 0.1% -) 1 drop OU TID [facility] Last Admin: 11/30/17 15:02 Dose: 1 drop Calcium Carbonate/Cholecalciferol (Os-Isacc 500+D -) 1 tab PO DAILY [facility] Last Admin: 11/30/17 11:38 Dose: 1 tab Carbidopa/Levodopa (Sinemet 25/100 -) 1 each PO TID [facility] Last Admin: 11/30/17 15:02 Dose: 1 each Citalopram Hydrobromide (Celexa -) 10 mg PO DAILY [facility] Last Admin: 11/30/17 11:38 Dose: 10 mg Cyanocobalamin (Vitamin B12 -) 1,000 mcg PO DAILY [facility] Last Admin: 11/30/17 11:37 Dose: 1,000 mcg Docusate Sodium (Colace -) 300 mg PO HS [facility] Last Admin: 11/29/17 22:57 Dose: 300 mg Donepezil HCl (Aricept -) 10 mg PO DAILY [facility] Last Admin: 11/30/17 11:38 Dose: 10 mg Dorzolamide HCl (Trusopt 2%) 1 drop OU TID [facility] Last Admin: 11/30/17 15:02 Dose: 1 drop Ferrous Sulfate (Feosol -) 325 mg PO BID [facility] Last Admin: 11/30/17 11:39 Dose: 325 mg Folic Acid (Folic Acid -) 1 mg PO DAILY [facility] Last Admin: 11/30/17 11:38 Dose: 1 mg Heparin Sodium (Porcine) (Heparin -) 5,000 unit SQ TID [facility] Last Admin: 11/30/17 15:02 Dose: 5,000 unit CEFTRIAXONE 1 G/50 ML PREMIX (Ceftriaxone 1 Gm-D5w Bag) 50 mls @ 100 mls/hr IVPB DAILY [facility] Last Admin: 11/30/17 11:36 Dose: 100 mls/hr Dextrose (D5w -) 1,000 mls @ 75 mls/hr IV [facility] Last Admin: 11/30/17 15:03 Dose: 75 mls/hr Insulin Aspart (Novolog Vial Sliding Scale -) 1 vial SQ TIDAC [facility] PRN Reason: Protocol Last Admin: 11/30/17 12:50 Dose: 8 units Insulin Aspart (Novolog Vial Sliding Scale -) 1 vial SQ HS [facility] PRN Reason: Protocol Last Admin: 11/29/17 23:59 Dose: Not Given Insulin Detemir (Levemir Vial) 10 units SQ HS [facility] Last Admin: 11/29/17 23:59 Dose: Not Given Latanoprost (Xalatan 0.005% Eye Drops -) 1 drop OU HS [facility] Last Admin: 11/29/17 22:57 Dose: 1 drop Pilocarpine HCl (Pilostat 1% -) 1 drop OU QID [facility] Last Admin: 11/30/17 15:02 Dose: 1 drop - Objective Vital Signs: Vital Signs Temperature 99.6 F 11/30/17 15:16 Pulse Rate 85 11/30/17 15:16 Respiratory Rate 20 11/30/17 15:16 Blood Pressure 163/87 11/30/17 15:16 O2 Sat by Pulse Oximetry (%) 100 11/29/17 21:00 Constitutional: Yes: No Distress, Calm Gastrointestinal: Yes: Soft. No: Distention, Melena, Rectal Bleeding, Tenderness, Vomiting Labs: CBC, BMP 11/30/17 06:50 11/30/17 06:50 INR, PTT INR 0.96 (0.82-1.09) 11/28/17 12:44 CBCD WBC 7.0 K/mm3 (4.0-10.0) 11/30/17 06:50 RBC 3.13 M/mm3 (3.60-5.2) L D 11/30/17 06:50 Hgb 9.5 GM/dL (10.7-15.3) L D 11/30/17 06:50 Hct 28.5 % (32.4-45.2) L D 11/30/17 06:50 MCV 91.0 fl (80-96) 11/30/17 06:50 MCHC 33.3 g/dl (32.0-36.0) 11/30/17 06:50 RDW 15.1 % (11.6-15.6) 11/30/17 06:50 Plt Count 130 K/MM3 (134-434) L 11/30/17 06:50 MPV 7.2 fl (7.5-11.1) L 11/30/17 06:50 CMP Sodium 152 mmol/L (136-145) H 11/30/17 06:50 Potassium 3.5 mmol/L (3.5-5.1) 11/30/17 06:50 Chloride 118 mmol/L (98-107) H 11/30/17 06:50 Carbon Dioxide 24 mmol/L (21-32) 11/30/17 06:50 Anion Gap 10 (8-16) 11/30/17 06:50 BUN 67 mg/dL (7-18) H 11/30/17 06:50 Creatinine 3.0 mg/dL (0.55-1.02) H 11/30/17 06:50 Creat Clearance w eGFR 15.52 (>60) 11/30/17 06:50 Calcium 8.1 mg/dL (8.5-10.1) L 11/30/17 06:50 Total Bilirubin 0.6 mg/dL (0.2-1.0) D 11/30/17 06:50 AST 51 U/L (15-37) H 11/30/17 06:50 ALT 11 U/L (12-78) L 11/30/17 06:50 Alkaline Phosphatase 75 U/L (45-117) 11/30/17 06:50 Total Protein 5.8 g/dl (6.4-8.2) L 11/30/17 06:50 Albumin 2.3 g/dl (3.4-5.0) L 11/30/17 06:50 Problem List - Problems (1) BING (acute kidney injury) Code(s): N17.9 - ACUTE KIDNEY FAILURE, UNSPECIFIED (2) Altered mental status Code(s): R41.82 - ALTERED MENTAL STATUS, UNSPECIFIED Qualifiers: Altered mental status type: unspecified Qualified Code(s): R41.82 - Altered mental status, unspecified (3) Anemia Code(s): D64.9 - ANEMIA, UNSPECIFIED Qualifiers: Anemia type: unspecified type Qualified Code(s): D64.9 - Anemia, unspecified (4) Elevated troponin Code(s): R74.8 - ABNORMAL LEVELS OF OTHER SERUM ENZYMES (5) Hypernatremia Code(s): E87.0 - HYPEROSMOLALITY AND HYPERNATREMIA (6) UTI (urinary tract infection) Code(s): N39.0 - URINARY TRACT INFECTION, SITE NOT SPECIFIED Assessment/Plan No external signs of GI bleeding Aspiration precautions
--- NOTE | 2017-11-30 17:05 | PN ---
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, Physician History of Present Illness: IN BED LETHARGIC VEST IN PLACE FOR SAFETY - Current Medication List Current Medications: Active Medications Acetaminophen (Tylenol -) 650 mg PO Q6H PRN PRN Reason: FEVER Last Admin: 11/29/17 14:06 Dose: 650 mg Aspirin (Ecotrin -) 81 mg PO DAILY [facility] Last Admin: 11/30/17 11:38 Dose: 81 mg Atorvastatin Calcium (Lipitor -) 10 mg PO HS [facility] Last Admin: 11/29/17 22:57 Dose: 10 mg Brimonidine Tartrate (Alphagan P 0.1% -) 1 drop OU TID [facility] Last Admin: 11/30/17 15:02 Dose: 1 drop Calcium Carbonate/Cholecalciferol (Os-Isacc 500+D -) 1 tab PO DAILY [facility] Last Admin: 11/30/17 11:38 Dose: 1 tab Carbidopa/Levodopa (Sinemet 25/100 -) 1 each PO TID [facility] Last Admin: 11/30/17 15:02 Dose: 1 each Citalopram Hydrobromide (Celexa -) 10 mg PO DAILY [facility] Last Admin: 11/30/17 11:38 Dose: 10 mg Cyanocobalamin (Vitamin B12 -) 1,000 mcg PO DAILY [facility] Last Admin: 11/30/17 11:37 Dose: 1,000 mcg Docusate Sodium (Colace -) 300 mg PO HS [facility] Last Admin: 11/29/17 22:57 Dose: 300 mg Donepezil HCl (Aricept -) 10 mg PO DAILY [facility] Last Admin: 11/30/17 11:38 Dose: 10 mg Dorzolamide HCl (Trusopt 2%) 1 drop OU TID [facility] Last Admin: 11/30/17 15:02 Dose: 1 drop Ferrous Sulfate (Feosol -) 325 mg PO BID [facility] Last Admin: 11/30/17 11:39 Dose: 325 mg Folic Acid (Folic Acid -) 1 mg PO DAILY [facility] Last Admin: 11/30/17 11:38 Dose: 1 mg Heparin Sodium (Porcine) (Heparin -) 5,000 unit SQ TID [facility] Last Admin: 11/30/17 15:02 Dose: 5,000 unit CEFTRIAXONE 1 G/50 ML PREMIX (Ceftriaxone 1 Gm-D5w Bag) 50 mls @ 100 mls/hr IVPB DAILY [facility] Last Admin: 11/30/17 11:36 Dose: 100 mls/hr Dextrose (D5w -) 1,000 mls @ 75 mls/hr IV ASDIR [facility] Last Admin: 11/30/17 15:03 Dose: 75 mls/hr Insulin Aspart (Novolog Vial Sliding Scale -) 1 vial SQ TIDAC [facility] PRN Reason: Protocol Last Admin: 11/30/17 12:50 Dose: 8 units Insulin Aspart (Novolog Vial Sliding Scale -) 1 vial SQ HS [facility] PRN Reason: Protocol Last Admin: 11/29/17 23:59 Dose: Not Given Insulin Detemir (Levemir Vial) 10 units SQ HS [facility] Last Admin: 11/29/17 23:59 Dose: Not Given Latanoprost (Xalatan 0.005% Eye Drops -) 1 drop OU HS [facility] Last Admin: 11/29/17 22:57 Dose: 1 drop Pilocarpine HCl (Pilostat 1% -) 1 drop OU QID [facility] Last Admin: 11/30/17 15:02 Dose: 1 drop - Objective Vital Signs: Vital Signs Temperature 99.6 F 11/30/17 15:16 Pulse Rate 85 11/30/17 15:16 Respiratory Rate 20 11/30/17 15:16 Blood Pressure 163/87 11/30/17 15:16 O2 Sat by Pulse Oximetry (%) 100 11/29/17 21:00 Cardiovascular: Yes: S1, S2 Respiratory: Yes: Regular, CTA Bilaterally Gastrointestinal: Yes: Normal Bowel Sounds, Soft Labs: CBC, BMP 11/30/17 06:50 11/30/17 06:50 INR, PTT INR 0.96 (0.82-1.09) 11/28/17 12:44 Problem List - Problems (1) BING (acute kidney injury) Assessment/Plan: IVF MONITOR LABS RENAL CONSULT Code(s): N17.9 - ACUTE KIDNEY FAILURE, UNSPECIFIED (2) Altered mental status Assessment/Plan: MAYBE TOXI METABOLIC HOLD PSYCHOTROPICS NEURO Code(s): R41.82 - ALTERED MENTAL STATUS, UNSPECIFIED Qualifiers: Altered mental status type: unspecified Qualified Code(s): R41.82 - Altered mental status, unspecified (3) Anemia Assessment/Plan: MUTIFACTORIAL WORK UP ORDERED TRANSFUSE 2 UNITS LASIX POST TRANSFUSION Code(s): D64.9 - ANEMIA, UNSPECIFIED Qualifiers: Anemia type: unspecified type Qualified Code(s): D64.9 - Anemia, unspecified (4) Elevated troponin Assessment/Plan: Laboratory Tests 11/30/17 06:50 Troponin I 0.17 H monitor Code(s): R74.8 - ABNORMAL LEVELS OF OTHER SERUM ENZYMES
[2017-11-30] MEDS ORDERED: PT OWN MED DRAWER 7, Y5N ONE (18:02)
[2017-11-30] MEDS ORDERED: INSULIN (NOVOLOG) ASPART 100 UNITS/ML 10ML VIAL ONE (18:22)
--- NOTE | 2017-11-30 18:40 | PN ---
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 (short form) - Note 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: Patient seen and examined Lethargic Last Vital Signs Temp Pulse Resp BP Pulse Ox 97.6 F 80 20 170/85 97 11/30/17 18:00 11/30/17 18:00 11/30/17 18:00 11/30/17 18:00 11/30/17 10:00 Cor: RSR, No murmurs, No gallops Lungs: Clear to P&A Abd: Soft, Normal bowel sounds, No organomegaly Ext:No significant edema Abnormal Lab Results 11/29/17 11/30/17 11/30/17 09:23 06:50 06:50 RBC 3.13 L D Hgb 9.5 L D Hct 28.5 L D Plt Count 130 L MPV 7.2 L Neutrophils % 86.5 H Lymphocytes % 7.4 L Sodium 152 H Chloride 118 H BUN 67 H Creatinine 3.0 H Random Glucose 190 H Calcium 8.1 L AST 51 H ALT 11 L Creatine Kinase 444 H CK-MB (CK-2) 7.448 H Troponin I 0.17 H Total Protein 5.8 L Albumin 2.3 L Crossmatch See Detail Active Medications Generic Name Dose Route Start Last Admin Trade Name Freq PRN Reason Stop Dose Admin Acetaminophen 650 mg 11/29/17 13:50 11/29/17 14:06 Tylenol - PO 650 mg Q6H PRN Administration FEVER Amlodipine Besylate 2.5 mg 11/30/17 20:00 Norvasc - PO DAILY [facility] Aspirin 81 mg 11/29/17 10:00 11/30/17 11:38 Ecotrin - PO 81 mg DAILY [facility] Administration Atorvastatin Calcium 10 mg 11/29/17 22:00 11/29/17 22:57 Lipitor - PO 10 mg HS [facility] Administration Brimonidine Tartrate 1 drop 11/29/17 06:00 11/30/17 15:02 Alphagan P 0.1% - OU 1 drop TID [facility] Administration Calcium Carbonate/Cholecalciferol 1 tab 11/29/17 10:00 11/30/17 11:38 Os-Isacc 500+D - PO 1 tab DAILY [facility] Administration Carbidopa/Levodopa 1 each 11/29/17 06:00 11/30/17 15:02 Sinemet 25/100 - PO 1 each TID [facility] Administration Citalopram Hydrobromide 10 mg 11/29/17 10:00 11/30/17 11:38 Celexa - PO 10 mg DAILY [facility] Administration Cyanocobalamin 1,000 mcg 11/29/17 10:00 11/30/17 11:37 Vitamin B12 - PO 1,000 mcg DAILY [facility] Administration Docusate Sodium 300 mg 11/29/17 22:00 11/29/17 22:57 Colace - PO 300 mg HS [facility] Administration Donepezil HCl 10 mg 11/29/17 10:00 11/30/17 11:38 Aricept - PO 10 mg DAILY [facility] Administration Dorzolamide HCl 1 drop 11/29/17 06:00 11/30/17 15:02 Trusopt 2% OU 1 drop TID [facility] Administration Ferrous Sulfate 325 mg 11/29/17 10:00 11/30/17 11:39 Feosol - PO 325 mg BID [facility] Administration Folic Acid 1 mg 11/29/17 10:00 11/30/17 11:38 Folic Acid - PO 1 mg DAILY [facility] Administration Heparin Sodium (Porcine) 5,000 unit 11/29/17 06:00 11/30/17 15:02 Heparin - SQ 5,000 unit TID [facility] Administration CEFTRIAXONE 1 G/50 ML PREMIX 50 mls @ 100 mls/hr 11/30/17 10:00 11/30/17 11: 36 Ceftriaxone 1 Gm-D5w Bag IVPB 100 mls/hr DAILY [facility] Administration Dextrose 1,000 mls @ 75 mls/hr 11/30/17 14:15 11/30/17 15:03 D5w - IV 75 mls/hr ASDIR [facility] Administration Insulin Aspart 1 vial 11/29/17 07:00 11/30/17 18:23 Novolog Vial Sliding Scale - SQ 10 units TIDAC [facility] Administration Protocol Insulin Aspart 1 vial 11/29/17 22:00 11/29/17 23:59 Novolog Vial Sliding Scale - SQ Not Given HS [facility] Protocol Insulin Detemir 10 units 11/29/17 22:00 11/29/17 23:59 Levemir Vial SQ Not Given HS [facility] Latanoprost 1 drop 11/29/17 22:00 11/29/17 22:57 Xalatan 0.005% Eye Drops - OU 1 drop HS [facility] Administration Pilocarpine HCl 1 drop 11/29/17 10:00 11/30/17 18:08 Pilostat 1% - OU 1 drop QID [facility] Administration A/P 66 y/o patient with severe dementia,UTI, BING, anemia anemia of chronic disease +/- gi losses s/p PRBC transfusion with good response monitor CBC
[2017-11-30] MEDS: amLODIPine BESYLATE 2.5 MG TABLET (FP) PO SCH (21:27)
[2017-11-30] MEDS: DOCUSATE SODIUM 100 MG CAPSULE (FP) PO SCH (21:34)
[2017-11-30] MEDS: LATANOPROST 0.005% OPHTH SOLN 2.5ML BOTTLE OU SCH (21:35)
[2017-11-30] MEDS: ATORVASTATIN CA 10 MG TABLET (FP) PO SCH (21:35)
[2017-11-30] MEDS: INSULIN DETEMIR 100 UNITS/ML MDV SQ SCH (21:39)
[2017-12-01] MEDS: HEPARIN NA (PORCINE) 5,000 UNITS/ML 1ML VIAL SQ SCH ×3 (06:11→23:52)
[2017-12-01] MEDS: BRIMONIDINE TARTRATE 0.1% OPHTHALMIC 5 ML BOTTLE OU SCH ×2 (06:11→14:26)
[2017-12-01] MEDS: DORZOLAMIDE 2% HCL OPHTHALMIC SOLUTION 10 ML BOTTLE OU SCH ×4 (06:11→23:57)
[2017-12-01] MEDS: CARBIDOPA/LEVODOPA 25/100 TABLET (FP) PO SCH (06:12)
[2017-12-01] MEDS: INSULIN SLIDING SCALE (NOVOLOG) 1 VIAL SQ SCH ×3 (06:12→17:00)
[2017-12-01 07:44] LABS: BASO % 0.2 % (0-2.0); EOS % 0.1 % (0-4.5); HEMATOCRIT 28.7 % (32.4-45.2); HEMOGLOBIN 9.3 GM/dL (10.7-15.3); LYMPH % 8.7 % (8-40); MCH 30.1 pg (25.7-33.7); MCHC 32.6 g/dl (32.0-36.0); MEAN CELL VOLUME 92.5 fl (80-96); MEAN PLT VOLUME 7.4 fl (7.5-11.1); MONO % 5.3 % (3.8-10.2); NEUT % 85.7 % (42.8-82.8); PLATELET COUNT 130 K/MM3 (134-434); RDW 15.7 % (11.6-15.6)
[2017-12-01 08:07] LABS: SERUM IRON SATURATION 30 % (15-55); TOTAL IRON BINDING CAPACITY 164 ug/dL (250-450); UIBC 114 ug/dL (118-369)
[2017-12-01 08:26] LABS: CHLORIDE 121 mmol/L (98-107); SODIUM 156 mmol/L (136-145)
[2017-12-01 08:39] LABS: ALBUMIN 2.2 g/dl (3.4-5.0); ALK PHOS 72 U/L (45-117); ANION GAP 8 (8-16); BILIRUBIN,TOTAL 0.5 mg/dL (0.2-1.0); BLOOD UREA NITROGEN 64 mg/dL (7-18); CALCIUM 8.4 mg/dL (8.5-10.1); CO2 27 mmol/L (21-32); CREATININE 3.5 mg/dL (0.55-1.02); GLUCOSE,RANDOM 120 mg/dL (74-106); SGOT/AST 40 U/L (15-37); SGPT/ALT 9 U/L (12-78); TOT PROT 5.8 g/dl (6.4-8.2)
[2017-12-01] MEDS: CEFTRIAXONE 1 G/50 ML PREMIX 50 ML IVPB SCH (10:27)
[2017-12-01] MEDS: CALCIUM 500MG/VIT-D 200 UNITS COMBO TABLET (FP) PO SCH (10:28)
[2017-12-01] MEDS: CYANOCOBALAMIN 1,000 MCG TABLET (FP) PO SCH (10:28)
[2017-12-01] MEDS: CITALOPRAM HYDROBROMIDE 10 MG TABLET (FP) PO SCH (10:28)
[2017-12-01] MEDS: DONEPEZIL HCL 10 MG TABLET (FP) PO SCH (10:28)
[2017-12-01] MEDS: FERROUS SO4 325 MG TABLET (FP) PO SCH ×2 (10:28→23:44)
[2017-12-01] MEDS: FOLIC ACID 1 MG TABLET (FP) PO SCH (10:28)
[2017-12-01] MEDS: ASPIRIN COATED 81 MG TABLET.EC PO SCH (10:28)
[2017-12-01] MEDS: amLODIPine BESYLATE 2.5 MG TABLET (FP) PO SCH (10:28)
[2017-12-01] MEDS: PILOCARPINE 1% OPHTHALMIC SOLUTION 15 ML BOTTLE OU SCH ×4 (10:29→23:58)
[2017-12-01] MEDS: DEXTROSE 5%-WATER - 1,000 ML IV SCH ×3 (10:40→23:53)
--- NOTE | 2017-12-01 11:34 | PN ---
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 (short form) - Note 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: Neurology History of Present Illness Patient is a 66-year-old female past medical history of anemia, stage IV CAD, dementia, presents to the emergency department today from [facility] with the chief complaint of altered mental status. History per notes as patient is nonverbal. She states that the patient is usually A&Ox3, verbal calling out and aggressive. During my evaluation has been nonverbal, not following commands. CT head was repeated and reviewed and did not show acute changes. Being managed for alerted mental status, toxic metabolic encephalopathy. Has underlying dementia, on Donepezil. Renal following, note reviewed. Still lethargic, ID following, getting treatment for UTI, on Ceftriaxone. Will hold sinemet as patient not improved and in the event this may be causing sedation, unlikely, but will attempt trial without medication. Active Medications Acetaminophen (Tylenol -) 650 mg PO Q6H PRN PRN Reason: FEVER Last Admin: 11/29/17 14:06 Dose: 650 mg Amlodipine Besylate (Norvasc -) 2.5 mg PO DAILY [facility] Last Admin: 12/01/17 10:28 Dose: 2.5 mg Aspirin (Ecotrin -) 81 mg PO DAILY [facility] Last Admin: 12/01/17 10:28 Dose: 81 mg Atorvastatin Calcium (Lipitor -) 10 mg PO HS [facility] Last Admin: 11/30/17 21:35 Dose: 10 mg Brimonidine Tartrate (Alphagan P 0.1% -) 1 drop OU TID [facility] Last Admin: 12/01/17 06:11 Dose: 1 drop Calcium Carbonate/Cholecalciferol (Os-Isacc 500+D -) 1 tab PO DAILY [facility] Last Admin: 12/01/17 10:28 Dose: 1 tab Citalopram Hydrobromide (Celexa -) 10 mg PO DAILY [facility] Last Admin: 12/01/17 10:28 Dose: 10 mg Cyanocobalamin (Vitamin B12 -) 1,000 mcg PO DAILY [facility] Last Admin: 12/01/17 10:28 Dose: 1,000 mcg Docusate Sodium (Colace -) 300 mg PO HS [facility] Last Admin: 11/30/17 21:34 Dose: 300 mg Donepezil HCl (Aricept -) 10 mg PO DAILY [facility] Last Admin: 12/01/17 10:28 Dose: 10 mg Dorzolamide HCl (Trusopt 2%) 1 drop OU TID [facility] Last Admin: 12/01/17 06:11 Dose: 1 drop Ferrous Sulfate (Feosol -) 325 mg PO BID [facility] Last Admin: 12/01/17 10:28 Dose: 325 mg Folic Acid (Folic Acid -) 1 mg PO DAILY [facility] Last Admin: 12/01/17 10:28 Dose: 1 mg Heparin Sodium (Porcine) (Heparin -) 5,000 unit SQ TID [facility] Last Admin: 12/01/17 06:11 Dose: 5,000 unit CEFTRIAXONE 1 G/50 ML PREMIX (Ceftriaxone 1 Gm-D5w Bag) 50 mls @ 100 mls/hr IVPB DAILY [facility] Last Admin: 12/01/17 10:27 Dose: 100 mls/hr Dextrose (D5w -) 1,000 mls @ 75 mls/hr IV ASDIR [facility] Last Admin: 12/01/17 10:40 Dose: 75 mls/hr Insulin Aspart (Novolog Vial Sliding Scale -) 1 vial SQ TIDAC [facility] PRN Reason: Protocol Last Admin: 12/01/17 06:12 Dose: Not Given Insulin Aspart (Novolog Vial Sliding Scale -) 1 vial SQ [facility] PRN Reason: Protocol Last Admin: 11/30/17 21:56 Dose: 4 units Insulin Detemir (Levemir Vial) 10 units SQ [facility] Last Admin: 11/30/17 21:39 Dose: 10 units Latanoprost (Xalatan 0.005% Eye Drops -) 1 drop OU HS [facility] Last Admin: 11/30/17 21:35 Dose: 1 drop Pilocarpine HCl (Pilostat 1% -) 1 drop OU QID [facility] Last Admin: 12/01/17 10:29 Dose: 1 drop *Physical Exam Vital Signs Temperature 98.9 F 12/01/17 06:00 Pulse Rate 77 12/01/17 06:00 Respiratory Rate 20 12/01/17 06:00 Blood Pressure 135/67 12/01/17 06:00 O2 Sat by Pulse Oximetry (%) 99 11/30/17 21:00 GENERAL: Well developed, well nourished. Awake and alert to name only. No acute distress. Reaching out of exam bed. HEENT: Normocephalic, atraumatic. PERRLA, EOMI. No conjunctival pallor. Sclera are non- icteric. Moist mucous membranes. Oropharynx is clear. NECK: Supple. Full ROM. No JVD. Carotid pulses 2+ and symmetric, without bruits. No thyromegaly. No lymphadenopathy. CARDIOVASCULAR: Regular rate and rhythm. Systolic murmur II/ along the R and L 2nd/3rd intercostal space . No rubs, or gallops. Distal pulses are 2+ and symmetric. PULMONARY: No evidence of respiratory distress. Lungs clear to auscultation bilaterally. No wheezing, rales or rhonchi. ABDOMINAL: Soft. Non-tender. Non-distended. No rebound or guarding. No organomegaly. Normoactive bowel sounds. MUSCULOSKELETAL Normal range of motion at all joints. No bony deformities or tenderness. No CVA tenderness. EXTREMITIES: No cyanosis. No clubbing. No edema. No calf tenderness. SKIN: Warm and dry. Normal capillary refill. No rashes. No jaundice. NEUROLOGICAL: Unable to perform a neuro exam. Pt. is non-verbal, not responding to commands and aggressive. Toes are down-going bilaterally. Gait is not observed. PSYCHIATRIC: Cooperative. Good eye contact. Appropriate mood and affect. CBCD WBC 8.0 K/mm3 (4.0-10.0) 12/01/17 06:45 RBC 3.10 M/mm3 (3.60-5.2) L 12/01/17 06:45 Hgb 9.3 GM/dL (10.7-15.3) L 12/01/17 06:45 Hct 28.7 % (32.4-45.2) L 12/01/17 06:45 MCV 92.5 fl (80-96) 12/01/17 06:45 MCHC 32.6 g/dl (32.0-36.0) 12/01/17 06:45 RDW 15.7 % (11.6-15.6) H 12/01/17 06:45 Plt Count 130 K/MM3 (134-434) L 12/01/17 06:45 MPV 7.4 fl (7.5-11.1) L 12/01/17 06:45 CMP Sodium 156 mmol/L (136-145) H 12/01/17 06:45 Potassium 4.0 mmol/L (3.5-5.1) 12/01/17 06:45 Chloride 121 mmol/L (98-107) H 12/01/17 06:45 Carbon Dioxide 27 mmol/L (21-32) 12/01/17 06:45 Anion Gap 8 (8-16) 12/01/17 06:45 BUN 64 mg/dL (7-18) H 12/01/17 06:45 Creatinine 3.5 mg/dL (0.55-1.02) H 12/01/17 06:45 Creat Clearance w eGFR 12.99 (>60) 12/01/17 06:45 Calcium 8.4 mg/dL (8.5-10.1) L 12/01/17 06:45 Total Bilirubin 0.5 mg/dL (0.2-1.0) 12/01/17 06:45 AST 40 U/L (15-37) H 12/01/17 06:45 ALT 9 U/L (12-78) L 12/01/17 06:45 Alkaline Phosphatase 72 U/L (45-117) 12/01/17 06:45 Total Protein 5.8 g/dl (6.4-8.2) L 12/01/17 06:45 Albumin 2.2 g/dl (3.4-5.0) L 12/01/17 06:45 CT head reviewed Medical Decision Making 66-year-old female past medical history of anemia, stage IV CAD, dementia, presents to the emergency department today from [facility] with the chief complaint of altered mental status. History per notes as patient is nonverbal. She states that the patient is usually A&Ox3, verbal calling out and aggressive. During my evaluation has been nonverbal, restless. CT head reviewed and did not show acute changes. For underlying dementia, continue on Donepezil. Hemoglobin improved s/p transfusion ID following for UTI On ceftriaxone Continue medical optimization Nephrology follow up regarding hypernatermia and CKD Will hold sinemet in the unlikely event this is causing any sedation Patient with alerted mental status, toxic metabolic encephalopathy which can be caused by any of above
--- NOTE | 2017-12-01 21:50 | PN ---
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 (short form) - Note 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: ckd jason Active Medications Acetaminophen (Tylenol -) 650 mg PO Q6H PRN PRN Reason: FEVER Last Admin: 11/29/17 14:06 Dose: 650 mg Amlodipine Besylate (Norvasc -) 2.5 mg PO DAILY [facility] Last Admin: 12/01/17 10:28 Dose: 2.5 mg Aspirin (Ecotrin -) 81 mg PO DAILY [facility] Last Admin: 12/01/17 10:28 Dose: 81 mg Atorvastatin Calcium (Lipitor -) 10 mg PO HS [facility] Last Admin: 11/30/17 21:35 Dose: 10 mg Brimonidine Tartrate (Alphagan P 0.1% -) 1 drop OU TID [facility] Last Admin: 12/01/17 14:26 Dose: 1 drop Calcium Carbonate/Cholecalciferol (Os-Isacc 500+D -) 1 tab PO DAILY [facility] Last Admin: 12/01/17 10:28 Dose: 1 tab Citalopram Hydrobromide (Celexa -) 10 mg PO DAILY [facility] Last Admin: 12/01/17 10:28 Dose: 10 mg Cyanocobalamin (Vitamin B12 -) 1,000 mcg PO DAILY [facility] Last Admin: 12/01/17 10:28 Dose: 1,000 mcg Docusate Sodium (Colace -) 300 mg PO HS [facility] Last Admin: 11/30/17 21:34 Dose: 300 mg Donepezil HCl (Aricept -) 10 mg PO DAILY [facility] Last Admin: 12/01/17 10:28 Dose: 10 mg Dorzolamide HCl (Trusopt 2%) 1 drop OU TID [facility] Last Admin: 12/01/17 14:27 Dose: 1 drop Ferrous Sulfate (Feosol -) 325 mg PO BID [facility] Last Admin: 12/01/17 10:28 Dose: 325 mg Folic Acid (Folic Acid -) 1 mg PO DAILY [facility] Last Admin: 12/01/17 10:28 Dose: 1 mg Heparin Sodium (Porcine) (Heparin -) 5,000 unit SQ TID [facility] Last Admin: 12/01/17 14:26 Dose: 5,000 unit CEFTRIAXONE 1 G/50 ML PREMIX (Ceftriaxone 1 Gm-D5w Bag) 50 mls @ 100 mls/hr IVPB DAILY [facility] Last Admin: 12/01/17 10:27 Dose: 100 mls/hr Dextrose (D5w -) 1,000 mls @ 100 mls/hr IV ASDIR [facility] Insulin Aspart (Novolog Vial Sliding Scale -) 1 vial SQ TIDAC [facility] PRN Reason: Protocol Last Admin: 12/01/17 17:00 Dose: 8 units Insulin Aspart (Novolog Vial Sliding Scale -) 1 vial SQ HS [facility] PRN Reason: Protocol Last Admin: 11/30/17 21:56 Dose: 4 units Insulin Detemir (Levemir Vial) 10 units SQ HS [facility] Last Admin: 11/30/17 21:39 Dose: 10 units Latanoprost (Xalatan 0.005% Eye Drops -) 1 drop OU HS [facility] Last Admin: 11/30/17 21:35 Dose: 1 drop Pilocarpine HCl (Pilostat 1% -) 1 drop OU QID [facility] Last Admin: 12/01/17 18:21 Dose: 1 drop Last Vital Signs Temp Pulse Resp BP Pulse Ox 98.5 F 74 20 142/63 99 12/01/17 17:00 12/01/17 17:00 12/01/17 17:00 12/01/17 17:00 12/01/17 09:00 Lungs clear Heart Reg Abd soft nontender ext no edema CBC, BMP 12/01/17 06:45 12/01/17 06:45 IMP-hypernatremia worsening after improvement Plan- increase hypotonic IVF
[2017-12-01] MEDS: ATORVASTATIN CA 10 MG TABLET (FP) PO SCH (23:44)
[2017-12-01] MEDS: DOCUSATE SODIUM 100 MG CAPSULE (FP) PO SCH (23:53)
[2017-12-01] MEDS: LATANOPROST 0.005% OPHTH SOLN 2.5ML BOTTLE OU SCH (23:58)
[2017-12-02] MEDS: BRIMONIDINE TARTRATE 0.1% OPHTHALMIC 5 ML BOTTLE OU SCH ×4 (00:04→22:32)
[2017-12-02] MEDS: INSULIN SLIDING SCALE (NOVOLOG) 1 VIAL SQ SCH ×5 (00:18→22:40)
[2017-12-02] MEDS: INSULIN DETEMIR 100 UNITS/ML MDV SQ SCH ×2 (00:18→22:39)
--- NOTE | 2017-12-02 00:35 | PN ---
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, Physician Chief Complaint: AMS - Current Medication List Current Medications: Active Medications Acetaminophen (Tylenol -) 650 mg PO Q6H PRN PRN Reason: FEVER Last Admin: 11/29/17 14:06 Dose: 650 mg Amlodipine Besylate (Norvasc -) 2.5 mg PO DAILY [facility] Last Admin: 12/01/17 10:28 Dose: 2.5 mg Aspirin (Ecotrin -) 81 mg PO DAILY [facility] Last Admin: 12/01/17 10:28 Dose: 81 mg Atorvastatin Calcium (Lipitor -) 10 mg PO HS [facility] Last Admin: 12/01/17 23:44 Dose: 10 mg Brimonidine Tartrate (Alphagan P 0.1% -) 1 drop OU TID [facility] Last Admin: 12/02/17 00:04 Dose: 1 drop Calcium Carbonate/Cholecalciferol (Os-Isacc 500+D -) 1 tab PO DAILY [facility] Last Admin: 12/01/17 10:28 Dose: 1 tab Citalopram Hydrobromide (Celexa -) 10 mg PO DAILY [facility] Last Admin: 12/01/17 10:28 Dose: 10 mg Cyanocobalamin (Vitamin B12 -) 1,000 mcg PO DAILY [facility] Last Admin: 12/01/17 10:28 Dose: 1,000 mcg Docusate Sodium (Colace -) 300 mg PO HS [facility] Last Admin: 12/01/17 23:53 Dose: 300 mg Donepezil HCl (Aricept -) 10 mg PO DAILY [facility] Last Admin: 12/01/17 10:28 Dose: 10 mg Dorzolamide HCl (Trusopt 2%) 1 drop OU TID [facility] Last Admin: 12/01/17 23:57 Dose: 1 drop Ferrous Sulfate (Feosol -) 325 mg PO BID [facility] Last Admin: 12/01/17 23:44 Dose: 325 mg Folic Acid (Folic Acid -) 1 mg PO DAILY [facility] Last Admin: 12/01/17 10:28 Dose: 1 mg Heparin Sodium (Porcine) (Heparin -) 5,000 unit SQ TID [facility] Last Admin: 12/01/17 23:52 Dose: 5,000 unit CEFTRIAXONE 1 G/50 ML PREMIX (Ceftriaxone 1 Gm-D5w Bag) 50 mls @ 100 mls/hr IVPB DAILY [facility] Last Admin: 12/01/17 10:27 Dose: 100 mls/hr Dextrose (D5w -) 1,000 mls @ 100 mls/hr IV ASDIR [facility] Last Admin: 12/01/17 23:53 Dose: 100 mls/hr Insulin Aspart (Novolog Vial Sliding Scale -) 1 vial SQ TIDAC [facility] PRN Reason: Protocol Last Admin: 12/01/17 17:00 Dose: 8 units Insulin Aspart (Novolog Vial Sliding Scale -) 1 vial SQ HS [facility] PRN Reason: Protocol Last Admin: 12/02/17 00:18 Dose: 8 units Insulin Detemir (Levemir Vial) 10 units SQ HS [facility] Last Admin: 12/02/17 00:18 Dose: 10 units Latanoprost (Xalatan 0.005% Eye Drops -) 1 drop OU HS [facility] Last Admin: 12/01/17 23:58 Dose: 1 drop Pilocarpine HCl (Pilostat 1% -) 1 drop OU QID [facility] Last Admin: 12/01/17 23:58 Dose: 1 drop - Objective Vital Signs: Vital Signs Temperature 98.5 F 12/01/17 17:00 Pulse Rate 74 12/01/17 17:00 Respiratory Rate 20 12/01/17 17:00 Blood Pressure 142/63 12/01/17 17:00 O2 Sat by Pulse Oximetry (%) 99 12/01/17 09:00 Constitutional: Yes: Well Nourished, No Distress, Calm Cardiovascular: Yes: Regular Rate and Rhythm Respiratory: Yes: Regular Musculoskeletal: Yes: WNL Extremities: Yes: WNL Neurological: Yes: Pre-Existing Deficit Labs: CBC, BMP 12/01/17 06:45 12/01/17 06:45 INR, PTT INR 0.96 (0.82-1.09) 11/28/17 12:44 Problem List - Problems (1) BING (acute kidney injury) Assessment/Plan: -seen by nephrology -chronic Code(s): N17.9 - ACUTE KIDNEY FAILURE, UNSPECIFIED (2) Altered mental status Assessment/Plan: -underlying dementia, exacerbated mental status 2/2 to acute infection Code(s): R41.82 - ALTERED MENTAL STATUS, UNSPECIFIED Qualifiers: Altered mental status type: unspecified Qualified Code(s): R41.82 - Altered mental status, unspecified (3) Anemia Assessment/Plan: -prbc given -monitor h/h -hematology consult Code(s): D64.9 - ANEMIA, UNSPECIFIED Qualifiers: Anemia type: unspecified type Qualified Code(s): D64.9 - Anemia, unspecified (4) Elevated troponin Assessment/Plan: -likely 2/2 to renal disease -stable -seen by cardiology Code(s): R74.8 - ABNORMAL LEVELS OF OTHER SERUM ENZYMES (5) Hypernatremia Assessment/Plan: -seen by nephrology Code(s): E87.0 - HYPEROSMOLALITY AND HYPERNATREMIA (6) UTI (urinary tract infection) Assessment/Plan: -seen by ID -ESBL in the urine -isolation precautions Code(s): N39.0 - URINARY TRACT INFECTION, SITE NOT SPECIFIED Assessment/Plan see problem list
[2017-12-02] MEDS: HEPARIN NA (PORCINE) 5,000 UNITS/ML 1ML VIAL SQ SCH ×3 (06:20→22:33)
[2017-12-02] MEDS: DORZOLAMIDE 2% HCL OPHTHALMIC SOLUTION 10 ML BOTTLE OU SCH ×3 (06:20→22:34)
[2017-12-02] MEDS: CEFTRIAXONE 1 G/50 ML PREMIX 50 ML IVPB SCH (09:49)
[2017-12-02] MEDS: DONEPEZIL HCL 10 MG TABLET (FP) PO SCH (09:49)
[2017-12-02] MEDS: FOLIC ACID 1 MG TABLET (FP) PO SCH (09:50)
[2017-12-02] MEDS: ASPIRIN COATED 81 MG TABLET.EC PO SCH (09:50)
[2017-12-02] MEDS: CALCIUM 500MG/VIT-D 200 UNITS COMBO TABLET (FP) PO SCH (09:50)
[2017-12-02] MEDS: CITALOPRAM HYDROBROMIDE 10 MG TABLET (FP) PO SCH (09:50)
[2017-12-02] MEDS: FERROUS SO4 325 MG TABLET (FP) PO SCH ×2 (09:50→22:33)
[2017-12-02] MEDS: amLODIPine BESYLATE 2.5 MG TABLET (FP) PO SCH (09:50)
[2017-12-02] MEDS: CYANOCOBALAMIN 1,000 MCG TABLET (FP) PO SCH (09:50)
[2017-12-02] MEDS: PILOCARPINE 1% OPHTHALMIC SOLUTION 15 ML BOTTLE OU SCH ×4 (09:53→22:34)
--- NOTE | 2017-12-02 12:56 | PN ---
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 (short form) - Note 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: Neurology History of Present Illness Patient is a 66-year-old female past medical history of anemia, stage IV CAD, dementia, presents to the emergency department today from [facility] with the chief complaint of altered mental status. History per notes as patient is nonverbal. She states that the patient is usually A&Ox3, verbal calling out and aggressive. During my evaluation has been nonverbal, not following commands. CT head was repeated and reviewed and did not show acute changes. Being managed for alerted mental status, toxic metabolic encephalopathy. Has underlying dementia, on Donepezil. Renal following, note reviewed. Still lethargic, ID following, getting treatment for UTI, on Ceftriaxone. Holding sinemet as patient not improved and in the event this may be causing sedation, unlikely, but attempting trial without medication. If no benefit in a day or two, will restart. Active Medications Acetaminophen (Tylenol -) 650 mg PO Q6H PRN PRN Reason: FEVER Last Admin: 11/29/17 14:06 Dose: 650 mg Amlodipine Besylate (Norvasc -) 2.5 mg PO DAILY [facility] Last Admin: 12/02/17 09:50 Dose: 2.5 mg Aspirin (Ecotrin -) 81 mg PO DAILY [facility] Last Admin: 12/02/17 09:50 Dose: 81 mg Atorvastatin Calcium (Lipitor -) 10 mg PO [facility] Last Admin: 12/01/17 23:44 Dose: 10 mg Brimonidine Tartrate (Alphagan P 0.1% -) 1 drop OU TID [facility] Last Admin: 12/02/17 06:20 Dose: 1 drop Calcium Carbonate/Cholecalciferol (Os-Isacc 500+D -) 1 tab PO DAILY [facility] Last Admin: 12/02/17 09:50 Dose: 1 tab Citalopram Hydrobromide (Celexa -) 10 mg PO DAILY [facility] Last Admin: 12/02/17 09:50 Dose: 10 mg Cyanocobalamin (Vitamin B12 -) 1,000 mcg PO DAILY [facility] Last Admin: 12/02/17 09:50 Dose: 1,000 mcg Docusate Sodium (Colace -) 300 mg PO [facility] Last Admin: 12/01/17 23:53 Dose: 300 mg Donepezil HCl (Aricept -) 10 mg PO DAILY [facility] Last Admin: 12/02/17 09:49 Dose: 10 mg Dorzolamide HCl (Trusopt 2%) 1 drop OU TID [facility] Last Admin: 12/02/17 06:20 Dose: 1 drop Ferrous Sulfate (Feosol -) 325 mg PO BID [facility] Last Admin: 12/02/17 09:50 Dose: 325 mg Folic Acid (Folic Acid -) 1 mg PO DAILY [facility] Last Admin: 12/02/17 09:50 Dose: 1 mg Heparin Sodium (Porcine) (Heparin -) 5,000 unit SQ TID [facility] Last Admin: 12/02/17 06:20 Dose: 5,000 unit CEFTRIAXONE 1 G/50 ML PREMIX (Ceftriaxone 1 Gm-D5w Bag) 50 mls @ 100 mls/hr IVPB DAILY [facility] Last Admin: 12/02/17 09:49 Dose: 100 mls/hr Dextrose (D5w -) 1,000 mls @ 100 mls/hr IV ASDIR [facility] Last Admin: 12/01/17 23:53 Dose: 100 mls/hr Insulin Aspart (Novolog Vial Sliding Scale -) 1 vial SQ TIDAC [facility] PRN Reason: Protocol Last Admin: 12/02/17 11:17 Dose: 4 units Insulin Aspart (Novolog Vial Sliding Scale -) 1 vial SQ [facility] PRN Reason: Protocol Last Admin: 12/02/17 00:18 Dose: 8 units Insulin Detemir (Levemir Vial) 10 units SQ HS [facility] Last Admin: 12/02/17 00:18 Dose: 10 units Latanoprost (Xalatan 0.005% Eye Drops -) 1 drop OU HS [facility] Last Admin: 12/01/17 23:58 Dose: 1 drop Pilocarpine HCl (Pilostat 1% -) 1 drop OU QID [facility] Last Admin: 12/02/17 09:53 Dose: 1 drop *Physical Exam Vital Signs Period Temp Pulse Resp BP Sys/Rose Pulse Ox Last 24 Hr 97.4 F-98.5 F 70-79 17-20 120-142/54-65 99-99 GENERAL: Well developed, well nourished. Awake and alert to name only. No acute distress. Reaching out of exam bed. HEENT: Normocephalic, atraumatic. PERRLA, EOMI. No conjunctival pallor. Sclera are non- icteric. Moist mucous membranes. Oropharynx is clear. NECK: Supple. Full ROM. No JVD. Carotid pulses 2+ and symmetric, without bruits. No thyromegaly. No lymphadenopathy. CARDIOVASCULAR: Regular rate and rhythm. Systolic murmur II/ along the R and L 2nd/3rd intercostal space . No rubs, or gallops. Distal pulses are 2+ and symmetric. PULMONARY: No evidence of respiratory distress. Lungs clear to auscultation bilaterally. No wheezing, rales or rhonchi. ABDOMINAL: Soft. Non-tender. Non-distended. No rebound or guarding. No organomegaly. Normoactive bowel sounds. MUSCULOSKELETAL Normal range of motion at all joints. No bony deformities or tenderness. No CVA tenderness. EXTREMITIES: No cyanosis. No clubbing. No edema. No calf tenderness. SKIN: Warm and dry. Normal capillary refill. No rashes. No jaundice. NEUROLOGICAL: Unable to perform a neuro exam. Pt. is non-verbal, not responding to commands and aggressive. Toes are down-going bilaterally. Gait is not observed. PSYCHIATRIC: Cooperative. Good eye contact. Appropriate mood and affect. CBCD WBC 8.0 K/mm3 (4.0-10.0) 12/01/17 06:45 RBC 3.10 M/mm3 (3.60-5.2) L 12/01/17 06:45 Hgb 9.3 GM/dL (10.7-15.3) L 12/01/17 06:45 Hct 28.7 % (32.4-45.2) L 12/01/17 06:45 MCV 92.5 fl (80-96) 12/01/17 06:45 MCHC 32.6 g/dl (32.0-36.0) 12/01/17 06:45 RDW 15.7 % (11.6-15.6) H 12/01/17 06:45 Plt Count 130 K/MM3 (134-434) L 12/01/17 06:45 MPV 7.4 fl (7.5-11.1) L 12/01/17 06:45 CMP Sodium 156 mmol/L (136-145) H 12/01/17 06:45 Potassium 4.0 mmol/L (3.5-5.1) 12/01/17 06:45 Chloride 121 mmol/L (98-107) H 12/01/17 06:45 Carbon Dioxide 27 mmol/L (21-32) 12/01/17 06:45 Anion Gap 8 (8-16) 12/01/17 06:45 BUN 64 mg/dL (7-18) H 12/01/17 06:45 Creatinine 3.5 mg/dL (0.55-1.02) H 12/01/17 06:45 Creat Clearance w eGFR 12.99 (>60) 12/01/17 06:45 Calcium 8.4 mg/dL (8.5-10.1) L 12/01/17 06:45 Total Bilirubin 0.5 mg/dL (0.2-1.0) 12/01/17 06:45 AST 40 U/L (15-37) H 12/01/17 06:45 ALT 9 U/L (12-78) L 12/01/17 06:45 Alkaline Phosphatase 72 U/L (45-117) 12/01/17 06:45 Total Protein 5.8 g/dl (6.4-8.2) L 12/01/17 06:45 Albumin 2.2 g/dl (3.4-5.0) L 12/01/17 06:45 CT head reviewed Medical Decision Making 66-year-old female past medical history of anemia, stage IV CAD, dementia, presents to the emergency department today from [facility] with the chief complaint of altered mental status. History per notes as patient is nonverbal. She states that the patient is usually A&Ox3, verbal calling out and aggressive. During my evaluation has been nonverbal, restless. CT head reviewed and did not show acute changes. For underlying dementia, continue on Donepezil. Hemoglobin improved s/p transfusion ID following for UTI On ceftriaxone Continue medical optimization Nephrology follow up regarding hypernatermia and CKD Will hold sinemet in the unlikely event this is causing any sedation, if does not help, will restart in a day or two Continue medical optimization
--- NOTE | 2017-12-02 19:00 | PN ---
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 (short form) - Note 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: ckd jason Active Medications Acetaminophen (Tylenol -) 650 mg PO Q6H PRN PRN Reason: FEVER Last Admin: 11/29/17 14:06 Dose: 650 mg Amlodipine Besylate (Norvasc -) 2.5 mg PO DAILY [facility] Last Admin: 12/02/17 09:50 Dose: 2.5 mg Aspirin (Ecotrin -) 81 mg PO DAILY [facility] Last Admin: 12/02/17 09:50 Dose: 81 mg Atorvastatin Calcium (Lipitor -) 10 mg PO HS [facility] Last Admin: 12/01/17 23:44 Dose: 10 mg Brimonidine Tartrate (Alphagan P 0.1% -) 1 drop OU TID [facility] Last Admin: 12/02/17 14:03 Dose: 1 drop Calcium Carbonate/Cholecalciferol (Os-Isacc 500+D -) 1 tab PO DAILY [facility] Last Admin: 12/02/17 09:50 Dose: 1 tab Citalopram Hydrobromide (Celexa -) 10 mg PO DAILY [facility] Last Admin: 12/02/17 09:50 Dose: 10 mg Cyanocobalamin (Vitamin B12 -) 1,000 mcg PO DAILY [facility] Last Admin: 12/02/17 09:50 Dose: 1,000 mcg Docusate Sodium (Colace -) 300 mg PO HS [facility] Last Admin: 12/01/17 23:53 Dose: 300 mg Donepezil HCl (Aricept -) 10 mg PO DAILY [facility] Last Admin: 12/02/17 09:49 Dose: 10 mg Dorzolamide HCl (Trusopt 2%) 1 drop OU TID [facility] Last Admin: 12/02/17 14:02 Dose: 1 drop Ferrous Sulfate (Feosol -) 325 mg PO BID [facility] Last Admin: 12/02/17 09:50 Dose: 325 mg Folic Acid (Folic Acid -) 1 mg PO DAILY [facility] Last Admin: 12/02/17 09:50 Dose: 1 mg Heparin Sodium (Porcine) (Heparin -) 5,000 unit SQ TID [facility] Last Admin: 12/02/17 14:00 Dose: 5,000 unit CEFTRIAXONE 1 G/50 ML PREMIX (Ceftriaxone 1 Gm-D5w Bag) 50 mls @ 100 mls/hr IVPB DAILY [facility] Last Admin: 12/02/17 09:49 Dose: 100 mls/hr Dextrose (D5w -) 1,000 mls @ 100 mls/hr IV [facility]IR [facility] Last Admin: 12/01/17 23:53 Dose: 100 mls/hr Insulin Aspart (Novolog Vial Sliding Scale -) 1 vial SQ TIDAC [facility] PRN Reason: Protocol Last Admin: 12/02/17 17:17 Dose: 8 units Insulin Aspart (Novolog Vial Sliding Scale -) 1 vial SQ HS [facility] PRN Reason: Protocol Last Admin: 12/02/17 00:18 Dose: 8 units Insulin Detemir (Levemir Vial) 10 units SQ HS [facility] Last Admin: 12/02/17 00:18 Dose: 10 units Latanoprost (Xalatan 0.005% Eye Drops -) 1 drop OU HS [facility] Last Admin: 12/01/17 23:58 Dose: 1 drop Pilocarpine HCl (Pilostat 1% -) 1 drop OU QID [facility] Last Admin: 12/02/17 17:18 Dose: 1 drop Last Vital Signs Temp Pulse Resp BP Pulse Ox 98.3 F 78 22 152/57 99 12/02/17 16:45 12/02/17 16:45 12/02/17 16:45 12/02/17 16:45 12/02/17 08:04 Lungs clear Heart Reg Abd soft nontender ext no edema CBC, BMP 12/01/17 06:45 12/02/17 20:55 IMP-hypernatremia worsening after improvement Plan- decrease ivf
--- NOTE | 2017-12-02 20:55 | PN ---
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, Physician Chief Complaint: AMS - Current Medication List Current Medications: Active Medications Acetaminophen (Tylenol -) 650 mg PO Q6H PRN PRN Reason: FEVER Last Admin: 11/29/17 14:06 Dose: 650 mg Amlodipine Besylate (Norvasc -) 2.5 mg PO DAILY [facility] Last Admin: 12/02/17 09:50 Dose: 2.5 mg Aspirin (Ecotrin -) 81 mg PO DAILY [facility] Last Admin: 12/02/17 09:50 Dose: 81 mg Atorvastatin Calcium (Lipitor -) 10 mg PO HS [facility] Last Admin: 12/01/17 23:44 Dose: 10 mg Brimonidine Tartrate (Alphagan P 0.1% -) 1 drop OU TID [facility] Last Admin: 12/02/17 14:03 Dose: 1 drop Calcium Carbonate/Cholecalciferol (Os-Isacc 500+D -) 1 tab PO DAILY [facility] Last Admin: 12/02/17 09:50 Dose: 1 tab Citalopram Hydrobromide (Celexa -) 10 mg PO DAILY [facility] Last Admin: 12/02/17 09:50 Dose: 10 mg Cyanocobalamin (Vitamin B12 -) 1,000 mcg PO DAILY [facility] Last Admin: 12/02/17 09:50 Dose: 1,000 mcg Docusate Sodium (Colace -) 300 mg PO HS [facility] Last Admin: 12/01/17 23:53 Dose: 300 mg Donepezil HCl (Aricept -) 10 mg PO DAILY [facility] Last Admin: 12/02/17 09:49 Dose: 10 mg Dorzolamide HCl (Trusopt 2%) 1 drop OU TID [facility] Last Admin: 12/02/17 14:02 Dose: 1 drop Ferrous Sulfate (Feosol -) 325 mg PO BID [facility] Last Admin: 12/02/17 09:50 Dose: 325 mg Folic Acid (Folic Acid -) 1 mg PO DAILY [facility] Last Admin: 12/02/17 09:50 Dose: 1 mg Heparin Sodium (Porcine) (Heparin -) 5,000 unit SQ TID [facility] Last Admin: 12/02/17 14:00 Dose: 5,000 unit CEFTRIAXONE 1 G/50 ML PREMIX (Ceftriaxone 1 Gm-D5w Bag) 50 mls @ 100 mls/hr IVPB DAILY [facility] Last Admin: 12/02/17 09:49 Dose: 100 mls/hr Dextrose (D5w -) 1,000 mls @ 100 mls/hr IV ASDIR [facility] Last Admin: 12/01/17 23:53 Dose: 100 mls/hr Insulin Aspart (Novolog Vial Sliding Scale -) 1 vial SQ TIDAC [facility] PRN Reason: Protocol Last Admin: 12/02/17 17:17 Dose: 8 units Insulin Aspart (Novolog Vial Sliding Scale -) 1 vial SQ HS [facility] PRN Reason: Protocol Last Admin: 12/02/17 00:18 Dose: 8 units Insulin Detemir (Levemir Vial) 10 units SQ HS [facility] Last Admin: 12/02/17 00:18 Dose: 10 units Latanoprost (Xalatan 0.005% Eye Drops -) 1 drop OU HS [facility] Last Admin: 12/01/17 23:58 Dose: 1 drop Pilocarpine HCl (Pilostat 1% -) 1 drop OU QID [facility] Last Admin: 12/02/17 17:18 Dose: 1 drop - Objective Vital Signs: Vital Signs Temperature 99.0 F 12/02/17 20:29 Pulse Rate 70 12/02/17 20:29 Respiratory Rate 18 12/02/17 20:29 Blood Pressure 121/52 12/02/17 20:29 O2 Sat by Pulse Oximetry (%) 100 12/02/17 20:29 Constitutional: Yes: Well Nourished, No Distress, Calm Cardiovascular: Yes: Regular Rate and Rhythm Respiratory: Yes: Regular Gastrointestinal: Yes: Normal Bowel Sounds, Soft Musculoskeletal: Yes: WNL Extremities: Yes: WNL Edema: No Peripheral Pulses WNL: Yes Labs: CBC, BMP 12/01/17 06:45 12/01/17 06:45 INR, PTT INR 0.96 (0.82-1.09) 11/28/17 12:44 Problem List - Problems (1) BING (acute kidney injury) Assessment/Plan: -seen by nephrology -chronic Code(s): N17.9 - ACUTE KIDNEY FAILURE, UNSPECIFIED (2) Altered mental status Assessment/Plan: -underlying dementia, exacerbated mental status 2/2 to acute infection Code(s): R41.82 - ALTERED MENTAL STATUS, UNSPECIFIED Qualifiers: Altered mental status type: unspecified Qualified Code(s): R41.82 - Altered mental status, unspecified (3) Anemia Assessment/Plan: -prbc given -monitor h/h -hematology consult Code(s): D64.9 - ANEMIA, UNSPECIFIED Qualifiers: Anemia type: unspecified type Qualified Code(s): D64.9 - Anemia, unspecified (4) Elevated troponin Assessment/Plan: -likely 2/2 to renal disease -stable -seen by cardiology Code(s): R74.8 - ABNORMAL LEVELS OF OTHER SERUM ENZYMES (5) Hypernatremia Assessment/Plan: -seen by nephrology -hypotonic fluids increased -repeat labs in AM Code(s): E87.0 - HYPEROSMOLALITY AND HYPERNATREMIA (6) UTI (urinary tract infection) Assessment/Plan: -seen by ID -ESBL in the urine -isolation precautions -IV abx Code(s): N39.0 - URINARY TRACT INFECTION, SITE NOT SPECIFIED Assessment/Plan see problem list
[2017-12-02 22:02] LABS: ANION GAP 6 (8-16); BLOOD UREA NITROGEN 83 mg/dL (7-18); CALCIUM 7.7 mg/dL (8.5-10.1); CHLORIDE 114 mmol/L (98-107); CO2 27 mmol/L (21-32); CREATININE 3.8 mg/dL (0.55-1.02); GLUCOSE,RANDOM 284 mg/dL (74-106); POTASSIUM 4.1 mmol/L (3.5-5.1); SODIUM 147 mmol/L (136-145)
[2017-12-02] MEDS: DOCUSATE SODIUM 100 MG CAPSULE (FP) PO SCH (22:33)
[2017-12-02] MEDS: ATORVASTATIN CA 10 MG TABLET (FP) PO SCH (22:33)
[2017-12-02] MEDS: DEXTROSE 5%-WATER - 1,000 ML IV SCH (22:33)
[2017-12-02] MEDS: LATANOPROST 0.005% OPHTH SOLN 2.5ML BOTTLE OU SCH (22:34)
[2017-12-03] MEDS: HEPARIN NA (PORCINE) 5,000 UNITS/ML 1ML VIAL SQ SCH ×3 (06:07→22:44)
[2017-12-03] MEDS: DORZOLAMIDE 2% HCL OPHTHALMIC SOLUTION 10 ML BOTTLE OU SCH ×3 (06:08→22:49)
[2017-12-03] MEDS: INSULIN SLIDING SCALE (NOVOLOG) 1 VIAL SQ SCH ×4 (06:08→22:50)
[2017-12-03] MEDS: BRIMONIDINE TARTRATE 0.1% OPHTHALMIC 5 ML BOTTLE OU SCH ×4 (06:08→22:48)
[2017-12-03 07:41] LABS: ANION GAP 7 (8-16); BLOOD UREA NITROGEN 76 mg/dL (7-18); CALCIUM 7.6 mg/dL (8.5-10.1); CHLORIDE 114 mmol/L (98-107); CO2 26 mmol/L (21-32); GLUCOSE,RANDOM 119 mg/dL (74-106); POTASSIUM 4.3 mmol/L (3.5-5.1); SODIUM 147 mmol/L (136-145)
[2017-12-03 07:45] LABS: ALK PHOS 62 U/L (45-117); BILIRUBIN,TOTAL 0.3 mg/dL (0.2-1.0); CREATININE 3.7 mg/dL (0.55-1.02); SGOT/AST 39 U/L (15-37); SGPT/ALT 14 U/L (12-78); TOT PROT 5.5 g/dl (6.4-8.2)
--- NOTE | 2017-12-03 09:20 | PN ---
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, Physician - Current Medication List Current Medications: Active Medications Acetaminophen (Tylenol -) 650 mg PO Q6H PRN PRN Reason: FEVER Last Admin: 11/29/17 14:06 Dose: 650 mg Amlodipine Besylate (Norvasc -) 2.5 mg PO DAILY [facility] Last Admin: 12/02/17 09:50 Dose: 2.5 mg Aspirin (Ecotrin -) 81 mg PO DAILY [facility] Last Admin: 12/02/17 09:50 Dose: 81 mg Atorvastatin Calcium (Lipitor -) 10 mg PO HS [facility] Last Admin: 12/02/17 22:33 Dose: 10 mg Brimonidine Tartrate (Alphagan P 0.1% -) 1 drop OU TID [facility] Last Admin: 12/03/17 06:08 Dose: 1 drop Calcium Carbonate/Cholecalciferol (Os-Isacc 500+D -) 1 tab PO DAILY [facility] Last Admin: 12/02/17 09:50 Dose: 1 tab Citalopram Hydrobromide (Celexa -) 10 mg PO DAILY [facility] Last Admin: 12/02/17 09:50 Dose: 10 mg Cyanocobalamin (Vitamin B12 -) 1,000 mcg PO DAILY [facility] Last Admin: 12/02/17 09:50 Dose: 1,000 mcg Docusate Sodium (Colace -) 300 mg PO HS [facility] Last Admin: 12/02/17 22:33 Dose: 300 mg Donepezil HCl (Aricept -) 10 mg PO DAILY [facility] Last Admin: 12/02/17 09:49 Dose: 10 mg Dorzolamide HCl (Trusopt 2%) 1 drop OU TID [facility] Last Admin: 12/03/17 06:08 Dose: 1 drop Ferrous Sulfate (Feosol -) 325 mg PO BID [facility] Last Admin: 12/02/17 22:33 Dose: 325 mg Folic Acid (Folic Acid -) 1 mg PO DAILY [facility] Last Admin: 12/02/17 09:50 Dose: 1 mg Heparin Sodium (Porcine) (Heparin -) 5,000 unit SQ TID [facility] Last Admin: 12/03/17 06:07 Dose: 5,000 unit CEFTRIAXONE 1 G/50 ML PREMIX (Ceftriaxone 1 Gm-D5w Bag) 50 mls @ 100 mls/hr IVPB DAILY [facility] Last Admin: 12/02/17 09:49 Dose: 100 mls/hr Dextrose (D5w -) 1,000 mls @ 100 mls/hr IV ASDIR [facility] Last Admin: 12/02/17 22:33 Dose: Not Given Insulin Aspart (Novolog Vial Sliding Scale -) 1 vial SQ TIDAC [facility] PRN Reason: Protocol Last Admin: 12/03/17 06:08 Dose: 2 units Insulin Aspart (Novolog Vial Sliding Scale -) 1 vial SQ HS [facility] PRN Reason: Protocol Last Admin: 12/02/17 22:40 Dose: 4 units Insulin Detemir (Levemir Vial) 10 units SQ HS [facility] Last Admin: 12/02/17 22:39 Dose: 10 units Latanoprost (Xalatan 0.005% Eye Drops -) 1 drop OU HS [facility] Last Admin: 12/02/17 22:34 Dose: 1 drop Pilocarpine HCl (Pilostat 1% -) 1 drop OU QID [facility] Last Admin: 12/02/17 22:34 Dose: 1 drop - Objective Vital Signs: Vital Signs Temperature 98.3 F 12/03/17 07:25 Pulse Rate 74 12/03/17 07:25 Respiratory Rate 18 12/03/17 07:30 Blood Pressure 126/63 12/03/17 07:25 O2 Sat by Pulse Oximetry (%) 100 12/03/17 07:30 Cardiovascular: Yes: S1, S2 Respiratory: Yes: Regular, CTA Bilaterally Gastrointestinal: Yes: Normal Bowel Sounds, Soft Labs: CBC, BMP 12/01/17 06:45 12/03/17 05:25 INR, PTT INR 0.96 (0.82-1.09) 11/28/17 12:44 Problem List - Problems (1) BING (acute kidney injury) Code(s): N17.9 - ACUTE KIDNEY FAILURE, UNSPECIFIED (2) Altered mental status Code(s): R41.82 - ALTERED MENTAL STATUS, UNSPECIFIED Qualifiers: Altered mental status type: unspecified Qualified Code(s): R41.82 - Altered mental status, unspecified (3) Anemia Code(s): D64.9 - ANEMIA, UNSPECIFIED Qualifiers: Anemia type: unspecified type Qualified Code(s): D64.9 - Anemia, unspecified (4) Elevated troponin Code(s): R74.8 - ABNORMAL LEVELS OF OTHER SERUM ENZYMES Assessment/Plan - Problems (1) BING (acute kidney injury) Assessment/Plan: -seen by nephrology -chronic Code(s): N17.9 - ACUTE KIDNEY FAILURE, UNSPECIFIED (2) Altered mental status Assessment/Plan: -underlying dementia, exacerbated mental status 2/2 to acute infection Code(s): R41.82 - ALTERED MENTAL STATUS, UNSPECIFIED Qualifiers: Altered mental status type: unspecified Qualified Code(s): R41.82 - Altered mental status, unspecified (3) Anemia Assessment/Plan: -prbc given -monitor h/h -hematology consult Code(s): D64.9 - ANEMIA, UNSPECIFIED Qualifiers: Anemia type: unspecified type Qualified Code(s): D64.9 - Anemia, unspecified (4) Elevated troponin Assessment/Plan: -likely 2/2 to renal disease -stable -seen by cardiology Code(s): R74.8 - ABNORMAL LEVELS OF OTHER SERUM ENZYMES (5) Hypernatremia Assessment/Plan: -seen by nephrology -hypotonic fluids increased -repeat labs in AM Code(s): E87.0 - HYPEROSMOLALITY AND HYPERNATREMIA (6) UTI (urinary tract infection) Assessment/Plan: -seen by ID -ESBL in the urine -isolation precautions -IV abx Code(s): N39.0 - URINARY TRACT INFECTION, SITE NOT SPECIFIED
[2017-12-03] MEDS: CEFTRIAXONE 1 G/50 ML PREMIX 50 ML IVPB SCH (09:34)
[2017-12-03] MEDS: ASPIRIN COATED 81 MG TABLET.EC PO SCH (09:35)
[2017-12-03] MEDS: FOLIC ACID 1 MG TABLET (FP) PO SCH (09:35)
[2017-12-03] MEDS: CALCIUM 500MG/VIT-D 200 UNITS COMBO TABLET (FP) PO SCH (09:35)
[2017-12-03] MEDS: DONEPEZIL HCL 10 MG TABLET (FP) PO SCH (09:35)
[2017-12-03] MEDS: amLODIPine BESYLATE 2.5 MG TABLET (FP) PO SCH (09:35)
[2017-12-03] MEDS: CYANOCOBALAMIN 1,000 MCG TABLET (FP) PO SCH (09:35)
[2017-12-03] MEDS: CITALOPRAM HYDROBROMIDE 10 MG TABLET (FP) PO SCH (09:35)
[2017-12-03] MEDS: FERROUS SO4 325 MG TABLET (FP) PO SCH ×2 (09:35→22:44)
[2017-12-03] MEDS: PILOCARPINE 1% OPHTHALMIC SOLUTION 15 ML BOTTLE OU SCH ×4 (09:36→22:49)
--- NOTE | 2017-12-03 10:31 | PN ---
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 (short form) - Note 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: Neurology History of Present Illness Patient is a 66-year-old female past medical history of anemia, stage IV CAD, dementia, presents to the emergency department today from [facility] with the chief complaint of altered mental status. History per notes as patient is nonverbal. She states that the patient is usually A&Ox3, verbal calling out and aggressive. During my evaluation has been nonverbal, not following commands. CT head was repeated and reviewed and did not show acute changes. Being managed for alerted mental status, toxic metabolic encephalopathy. Has underlying dementia, on Donepezil. Altered mental status, ID following, getting treatment for UTI, on Ceftriaxone. Holding sinemet as patient not improved and in the event this may be causing sedation, unlikely, but attempting trial without medication. If no benefit by tomrorow, will restart. Active Medications Acetaminophen (Tylenol -) 650 mg PO Q6H PRN PRN Reason: FEVER Last Admin: 11/29/17 14:06 Dose: 650 mg Amlodipine Besylate (Norvasc -) 2.5 mg PO DAILY [facility] Last Admin: 12/03/17 09:35 Dose: 2.5 mg Aspirin (Ecotrin -) 81 mg PO DAILY [facility] Last Admin: 12/03/17 09:35 Dose: 81 mg Atorvastatin Calcium (Lipitor -) 10 mg PO [facility] Last Admin: 12/02/17 22:33 Dose: 10 mg Brimonidine Tartrate (Alphagan P 0.1% -) 1 drop OU TID [facility] Last Admin: 12/03/17 06:08 Dose: 1 drop Calcium Carbonate/Cholecalciferol (Os-Isacc 500+D -) 1 tab PO DAILY [facility] Last Admin: 12/03/17 09:35 Dose: 1 tab Citalopram Hydrobromide (Celexa -) 10 mg PO DAILY [facility] Last Admin: 12/03/17 09:35 Dose: 10 mg Cyanocobalamin (Vitamin B12 -) 1,000 mcg PO DAILY [facility] Last Admin: 12/03/17 09:35 Dose: 1,000 mcg Docusate Sodium (Colace -) 300 mg PO HS [facility] Last Admin: 12/02/17 22:33 Dose: 300 mg Donepezil HCl (Aricept -) 10 mg PO DAILY [facility] Last Admin: 12/03/17 09:35 Dose: 10 mg Dorzolamide HCl (Trusopt 2%) 1 drop OU TID [facility] Last Admin: 12/03/17 06:08 Dose: 1 drop Ferrous Sulfate (Feosol -) 325 mg PO BID [facility] Last Admin: 12/03/17 09:35 Dose: 325 mg Folic Acid (Folic Acid -) 1 mg PO DAILY [facility] Last Admin: 12/03/17 09:35 Dose: 1 mg Heparin Sodium (Porcine) (Heparin -) 5,000 unit SQ TID [facility] Last Admin: 12/03/17 06:07 Dose: 5,000 unit CEFTRIAXONE 1 G/50 ML PREMIX (Ceftriaxone 1 Gm-D5w Bag) 50 mls @ 100 mls/hr IVPB DAILY [facility] Last Admin: 12/03/17 09:34 Dose: 100 mls/hr Dextrose (D5w -) 1,000 mls @ 100 mls/hr IV ASDIR [facility] Last Admin: 12/02/17 22:33 Dose: Not Given Insulin Aspart (Novolog Vial Sliding Scale -) 1 vial SQ TIDAC [facility] PRN Reason: Protocol Last Admin: 12/03/17 06:08 Dose: 2 units Insulin Aspart (Novolog Vial Sliding Scale -) 1 vial SQ HS [facility] PRN Reason: Protocol Last Admin: 12/02/17 22:40 Dose: 4 units Insulin Detemir (Levemir Vial) 10 units SQ HS [facility] Last Admin: 12/02/17 22:39 Dose: 10 units Latanoprost (Xalatan 0.005% Eye Drops -) 1 drop OU HS [facility] Last Admin: 12/02/17 22:34 Dose: 1 drop Pilocarpine HCl (Pilostat 1% -) 1 drop OU QID [facility] Last Admin: 12/03/17 09:36 Dose: 1 drop *Physical Exam Vital Signs Temperature 98.3 F 12/03/17 07:25 Pulse Rate 74 12/03/17 07:25 Respiratory Rate 18 12/03/17 07:30 Blood Pressure 126/63 12/03/17 07:25 O2 Sat by Pulse Oximetry (%) 100 12/03/17 07:30 GENERAL: Well developed, well nourished. Awake and alert to name only. No acute distress. Reaching out of exam bed. HEENT: Normocephalic, atraumatic. PERRLA, EOMI. No conjunctival pallor. Sclera are non- icteric. Moist mucous membranes. Oropharynx is clear. NECK: Supple. Full ROM. No JVD. Carotid pulses 2+ and symmetric, without bruits. No thyromegaly. No lymphadenopathy. CARDIOVASCULAR: Regular rate and rhythm. Systolic murmur II/ along the R and L 2nd/3rd intercostal space . No rubs, or gallops. Distal pulses are 2+ and symmetric. PULMONARY: No evidence of respiratory distress. Lungs clear to auscultation bilaterally. No wheezing, rales or rhonchi. ABDOMINAL: Soft. Non-tender. Non-distended. No rebound or guarding. No organomegaly. Normoactive bowel sounds. MUSCULOSKELETAL Normal range of motion at all joints. No bony deformities or tenderness. No CVA tenderness. EXTREMITIES: No cyanosis. No clubbing. No edema. No calf tenderness. SKIN: Warm and dry. Normal capillary refill. No rashes. No jaundice. NEUROLOGICAL: Unable to perform a neuro exam. Pt. is non-verbal, not responding to commands and aggressive. Toes are down-going bilaterally. Gait is not observed. PSYCHIATRIC: Cooperative. Good eye contact. Appropriate mood and affect. CBCD WBC 8.0 K/mm3 (4.0-10.0) 12/01/17 06:45 RBC 3.10 M/mm3 (3.60-5.2) L 12/01/17 06:45 Hgb 9.3 GM/dL (10.7-15.3) L 12/01/17 06:45 Hct 28.7 % (32.4-45.2) L 12/01/17 06:45 MCV 92.5 fl (80-96) 12/01/17 06:45 MCHC 32.6 g/dl (32.0-36.0) 12/01/17 06:45 RDW 15.7 % (11.6-15.6) H 12/01/17 06:45 Plt Count 130 K/MM3 (134-434) L 12/01/17 06:45 MPV 7.4 fl (7.5-11.1) L 12/01/17 06:45 CMP Sodium 147 mmol/L (136-145) H 12/03/17 05:25 Potassium 4.3 mmol/L (3.5-5.1) 12/03/17 05:25 Chloride 114 mmol/L (98-107) H 12/03/17 05:25 Carbon Dioxide 26 mmol/L (21-32) 12/03/17 05:25 Anion Gap 7 (8-16) L 12/03/17 05:25 BUN 76 mg/dL (7-18) H 12/03/17 05:25 Creatinine 3.7 mg/dL (0.55-1.02) H 12/03/17 05:25 Creat Clearance w eGFR 12.15 (>60) 12/03/17 05:25 Calcium 7.6 mg/dL (8.5-10.1) L 12/03/17 05:25 Total Bilirubin 0.3 mg/dL (0.2-1.0) D 12/03/17 05:25 AST 39 U/L (15-37) H 12/03/17 05:25 ALT 14 U/L (12-78) 12/03/17 05:25 Alkaline Phosphatase 62 U/L (45-117) 12/03/17 05:25 Total Protein 5.5 g/dl (6.4-8.2) L 12/03/17 05:25 Albumin 2.0 g/dl (3.4-5.0) L 12/03/17 05:25 CT head reviewed Medical Decision Making 66-year-old female past medical history of anemia, stage IV CAD, dementia, presents to the emergency department today from [facility] with the chief complaint of altered mental status. History per notes as patient is nonverbal. She states that the patient is usually A&Ox3, verbal calling out and aggressive. During my evaluation has been nonverbal, restless. CT head reviewed and did not show acute changes. For underlying dementia, continue on Donepezil. Hemoglobin improved s/p transfusion ID following for UTI On ceftriaxone Continue medical optimization Nephrology follow up regarding hypernatermia and CKD Will hold sinemet in the unlikely event this is causing any sedation, if does not help, will restart tomorrow Continue medical optimization
--- NOTE | 2017-12-03 11:49 | PN ---
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 Non communmicative
--- NOTE | 2017-12-03 14:59 | PN ---
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, Physician History of Present Illness: Pt seen and examined at bedside. She remains drowsy and is not very interactive. This is not her baseline status as she is known to me from previously. - Current Medication List Current Medications: Active Medications Acetaminophen (Tylenol -) 650 mg PO Q6H PRN PRN Reason: FEVER Last Admin: 11/29/17 14:06 Dose: 650 mg Amlodipine Besylate (Norvasc -) 2.5 mg PO DAILY [facility] Last Admin: 12/03/17 09:35 Dose: 2.5 mg Aspirin (Ecotrin -) 81 mg PO DAILY [facility] Last Admin: 12/03/17 09:35 Dose: 81 mg Atorvastatin Calcium (Lipitor -) 10 mg PO HS [facility] Last Admin: 12/02/17 22:33 Dose: 10 mg Brimonidine Tartrate (Alphagan P 0.1% -) 1 drop OU TID [facility] Last Admin: 12/03/17 06:08 Dose: 1 drop Calcium Carbonate/Cholecalciferol (Os-Isacc 500+D -) 1 tab PO DAILY [facility] Last Admin: 12/03/17 09:35 Dose: 1 tab Citalopram Hydrobromide (Celexa -) 10 mg PO DAILY [facility] Last Admin: 12/03/17 09:35 Dose: 10 mg Cyanocobalamin (Vitamin B12 -) 1,000 mcg PO DAILY [facility] Last Admin: 12/03/17 09:35 Dose: 1,000 mcg Docusate Sodium (Colace -) 300 mg PO HS [facility] Last Admin: 12/02/17 22:33 Dose: 300 mg Donepezil HCl (Aricept -) 10 mg PO DAILY [facility] Last Admin: 12/03/17 09:35 Dose: 10 mg Dorzolamide HCl (Trusopt 2%) 1 drop OU TID [facility] Last Admin: 12/03/17 06:08 Dose: 1 drop Ferrous Sulfate (Feosol -) 325 mg PO BID [facility] Last Admin: 12/03/17 09:35 Dose: 325 mg Folic Acid (Folic Acid -) 1 mg PO DAILY [facility] Last Admin: 12/03/17 09:35 Dose: 1 mg Heparin Sodium (Porcine) (Heparin -) 5,000 unit SQ TID [facility] Last Admin: 12/03/17 06:07 Dose: 5,000 unit CEFTRIAXONE 1 G/50 ML PREMIX (Ceftriaxone 1 Gm-D5w Bag) 50 mls @ 100 mls/hr IVPB DAILY [facility] Last Admin: 12/03/17 09:34 Dose: 100 mls/hr Dextrose (D5w -) 1,000 mls @ 100 mls/hr IV ASDIR [facility] Last Admin: 12/02/17 22:33 Dose: Not Given Insulin Aspart (Novolog Vial Sliding Scale -) 1 vial SQ TIDAC [facility] PRN Reason: Protocol Last Admin: 12/03/17 11:19 Dose: 2 units Insulin Aspart (Novolog Vial Sliding Scale -) 1 vial SQ HS [facility] PRN Reason: Protocol Last Admin: 12/02/17 22:40 Dose: 4 units Insulin Detemir (Levemir Vial) 10 units SQ HS [facility] Last Admin: 12/02/17 22:39 Dose: 10 units Latanoprost (Xalatan 0.005% Eye Drops -) 1 drop OU HS [facility] Last Admin: 12/02/17 22:34 Dose: 1 drop Pilocarpine HCl (Pilostat 1% -) 1 drop OU QID [facility] Last Admin: 12/03/17 09:36 Dose: 1 drop - Objective Vital Signs: Vital Signs Temperature 98.3 F 12/03/17 07:25 Pulse Rate 74 12/03/17 07:25 Respiratory Rate 18 12/03/17 07:30 Blood Pressure 126/63 12/03/17 07:25 O2 Sat by Pulse Oximetry (%) 100 12/03/17 07:30 Eyes: Yes: Conjunctiva Clear HENT: Yes: Atraumatic Neck: Yes: Supple Cardiovascular: Yes: S1, S2 Respiratory: Yes: CTA Bilaterally Gastrointestinal: Yes: Soft Genitourinary: Yes: Incontinence Musculoskeletal: Yes: Muscle Weakness Edema: No Neurological: Yes: Lethargy Labs: CBC, BMP 12/01/17 06:45 12/03/17 05:25 INR, PTT INR 0.96 (0.82-1.09) 11/28/17 12:44 Problem List - Problems (1) BING (acute kidney injury) Code(s): N17.9 - ACUTE KIDNEY FAILURE, UNSPECIFIED (2) Altered mental status Code(s): R41.82 - ALTERED MENTAL STATUS, UNSPECIFIED Qualifiers: Altered mental status type: unspecified Qualified Code(s): R41.82 - Altered mental status, unspecified (3) Hypernatremia Code(s): E87.0 - HYPEROSMOLALITY AND HYPERNATREMIA Assessment/Plan Current Medications Generic Name Dose Route Start Last Admin Trade Name Elo PRN Reason Stop Dose Admin Acetaminophen 650 mg 11/29/17 13:50 11/29/17 14:06 Tylenol - PO 650 mg Q6H PRN Administration FEVER Amlodipine Besylate 2.5 mg 11/30/17 20:00 12/03/17 09:35 Norvasc - PO 2.5 mg DAILY [facility] Administration Aspirin 81 mg 11/29/17 10:00 12/03/17 09:35 Ecotrin - PO 81 mg DAILY [facility] Administration Atorvastatin Calcium 10 mg 11/29/17 22:00 12/02/17 22:33 Lipitor - PO 10 mg HS [facility] Administration Brimonidine Tartrate 1 drop 11/29/17 06:00 12/03/17 06:08 Alphagan P 0.1% - OU 1 drop TID [facility] Administration Calcium Carbonate/Cholecalciferol 1 tab 11/29/17 10:00 12/03/17 09:35 Os-Isacc 500+D - PO 1 tab DAILY [facility] Administration Citalopram Hydrobromide 10 mg 11/29/17 10:00 12/03/17 09:35 Celexa - PO 10 mg DAILY [facility] Administration Cyanocobalamin 1,000 mcg 11/29/17 10:00 12/03/17 09:35 Vitamin B12 - PO 1,000 mcg DAILY [facility] Administration Docusate Sodium 300 mg 11/29/17 22:00 12/02/17 22:33 Colace - PO 300 mg HS [facility] Administration Donepezil HCl 10 mg 11/29/17 10:00 12/03/17 09:35 Aricept - PO 10 mg DAILY [facility] Administration Dorzolamide HCl 1 drop 11/29/17 06:00 12/03/17 06:08 Trusopt 2% OU 1 drop TID [facility] Administration Ferrous Sulfate 325 mg 11/29/17 10:00 12/03/17 09:35 Feosol - PO 325 mg BID [facility] Administration Folic Acid 1 mg 11/29/17 10:00 12/03/17 09:35 Folic Acid - PO 1 mg DAILY [facility] Administration Heparin Sodium (Porcine) 5,000 unit 11/29/17 06:00 12/03/17 06:07 Heparin - SQ 5,000 unit TID [facility] Administration CEFTRIAXONE 1 G/50 ML PREMIX 50 mls @ 100 mls/hr 11/30/17 10:00 12/03/17 09: 34 Ceftriaxone 1 Gm-D5w Bag IVPB 100 mls/hr DAILY [facility] Administration Dextrose 1,000 mls @ 100 mls/hr 12/01/17 20:57 12/02/17 22:33 D5w - IV Not Given ASDIR [facility] Insulin Aspart 1 vial 11/29/17 07:00 12/03/17 11:19 Novolog Vial Sliding Scale - SQ 2 units TIDAC [facility] Administration Protocol Insulin Aspart 1 vial 11/29/17 22:00 12/02/17 22:40 Novolog Vial Sliding Scale - SQ 4 units HS [facility] Administration Protocol Insulin Detemir 10 units 11/29/17 22:00 12/02/17 22:39 Levemir Vial SQ 10 units HS [facility] Administration Latanoprost 1 drop 11/29/17 22:00 12/02/17 22:34 Xalatan 0.005% Eye Drops - OU 1 drop HS [facility] Administration Pilocarpine HCl 1 drop 11/29/17 10:00 12/03/17 09:36 Pilostat 1% - OU 1 drop QID [facility] Administration Impression 1. CKD stage 4 2. anemia 3. change in mental status 4. hypernatremia 5. dehydration 6. Parkinson's disease 7. Depression Plan - restart d5w - repeat labs in am - sodium better than admission however not down to normal - pt has poor po intakey - abx per ID - will follow
[2017-12-03] MEDS ORDERED: DEXTROSE 5%-WATER - 1,000 ML IV SCH (15:00)
--- NOTE | 2017-12-03 15:16 | PN ---
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, Physician History of Present Illness: Low grade temp Not conversant WBC WNL - Current Medication List Current Medications: Active Medications Acetaminophen (Tylenol -) 650 mg PO Q6H PRN PRN Reason: FEVER Last Admin: 11/29/17 14:06 Dose: 650 mg Amlodipine Besylate (Norvasc -) 2.5 mg PO DAILY [facility] Last Admin: 12/03/17 09:35 Dose: 2.5 mg Aspirin (Ecotrin -) 81 mg PO DAILY [facility] Last Admin: 12/03/17 09:35 Dose: 81 mg Atorvastatin Calcium (Lipitor -) 10 mg PO HS [facility] Last Admin: 12/02/17 22:33 Dose: 10 mg Brimonidine Tartrate (Alphagan P 0.1% -) 1 drop OU TID [facility] Last Admin: 12/03/17 06:08 Dose: 1 drop Calcium Carbonate/Cholecalciferol (Os-Isacc 500+D -) 1 tab PO DAILY [facility] Last Admin: 12/03/17 09:35 Dose: 1 tab Citalopram Hydrobromide (Celexa -) 10 mg PO DAILY [facility] Last Admin: 12/03/17 09:35 Dose: 10 mg Cyanocobalamin (Vitamin B12 -) 1,000 mcg PO DAILY [facility] Last Admin: 12/03/17 09:35 Dose: 1,000 mcg Docusate Sodium (Colace -) 300 mg PO HS [facility] Last Admin: 12/02/17 22:33 Dose: 300 mg Donepezil HCl (Aricept -) 10 mg PO DAILY [facility] Last Admin: 12/03/17 09:35 Dose: 10 mg Dorzolamide HCl (Trusopt 2%) 1 drop OU TID [facility] Last Admin: 12/03/17 06:08 Dose: 1 drop Ferrous Sulfate (Feosol -) 325 mg PO BID [facility] Last Admin: 12/03/17 09:35 Dose: 325 mg Folic Acid (Folic Acid -) 1 mg PO DAILY [facility] Last Admin: 12/03/17 09:35 Dose: 1 mg Heparin Sodium (Porcine) (Heparin -) 5,000 unit SQ TID [facility] Last Admin: 12/03/17 06:07 Dose: 5,000 unit CEFTRIAXONE 1 G/50 ML PREMIX (Ceftriaxone 1 Gm-D5w Bag) 50 mls @ 100 mls/hr IVPB DAILY [facility] Last Admin: 12/03/17 09:34 Dose: 100 mls/hr Dextrose (D5w -) 1,000 mls @ 83 mls/hr IV [facility]IR [facility] Insulin Aspart (Novolog Vial Sliding Scale -) 1 vial SQ TIDAC [facility] PRN Reason: Protocol Last Admin: 12/03/17 11:19 Dose: 2 units Insulin Aspart (Novolog Vial Sliding Scale -) 1 vial SQ HS [facility] PRN Reason: Protocol Last Admin: 12/02/17 22:40 Dose: 4 units Insulin Detemir (Levemir Vial) 10 units SQ HS [facility] Last Admin: 12/02/17 22:39 Dose: 10 units Latanoprost (Xalatan 0.005% Eye Drops -) 1 drop OU HS [facility] Last Admin: 12/02/17 22:34 Dose: 1 drop Pilocarpine HCl (Pilostat 1% -) 1 drop OU QID [facility] Last Admin: 12/03/17 09:36 Dose: 1 drop - Objective Vital Signs: Vital Signs Temperature 99.9 F H 12/03/17 14:00 Pulse Rate 67 12/03/17 14:00 Respiratory Rate 20 12/03/17 14:00 Blood Pressure 117/46 12/03/17 14:00 O2 Sat by Pulse Oximetry (%) 100 12/03/17 07:30 Constitutional: Yes: No Distress, Cachectic Cardiovascular: Yes: Regular Rate and Rhythm, S1, S2 Respiratory: Yes: Rhonchi Gastrointestinal: Yes: Normal Bowel Sounds, Soft. No: Tenderness Edema: No Labs: CBC, BMP 12/01/17 06:45 12/03/17 05:25 INR, PTT INR 0.96 (0.82-1.09) 11/28/17 12:44 Assessment/Plan UTI Morganella +Urine c/s ESBL, probable contaminant day #5 ceftrixone Will D/C antibiotic, observe off
[2017-12-03] MEDS: ATORVASTATIN CA 10 MG TABLET (FP) PO SCH (22:44)
[2017-12-03] MEDS: DOCUSATE SODIUM 100 MG CAPSULE (FP) PO SCH (22:45)
[2017-12-03] MEDS: LATANOPROST 0.005% OPHTH SOLN 2.5ML BOTTLE OU SCH (22:50)
[2017-12-03] MEDS: INSULIN DETEMIR 100 UNITS/ML MDV SQ SCH (22:52)
[2017-12-04] MEDS: HEPARIN NA (PORCINE) 5,000 UNITS/ML 1ML VIAL SQ SCH ×2 (06:37→15:29)
[2017-12-04] MEDS: BRIMONIDINE TARTRATE 0.1% OPHTHALMIC 5 ML BOTTLE OU SCH ×3 (06:37→22:25)
[2017-12-04] MEDS: DORZOLAMIDE 2% HCL OPHTHALMIC SOLUTION 10 ML BOTTLE OU SCH ×3 (06:38→22:25)
[2017-12-04] MEDS: INSULIN SLIDING SCALE (NOVOLOG) 1 VIAL SQ SCH ×4 (06:38→22:35)
[2017-12-04 07:35] LABS: ALBUMIN 1.9 g/dl (3.4-5.0); ANION GAP 8 (8-16); BLOOD UREA NITROGEN 91 mg/dL (7-18); CALCIUM 7.9 mg/dL (8.5-10.1); CHLORIDE 114 mmol/L (98-107); CO2 26 mmol/L (21-32); CREATININE 3.7 mg/dL (0.55-1.02); GLUCOSE,RANDOM 261 mg/dL (74-106); POTASSIUM 4.9 mmol/L (3.5-5.1); SGOT/AST 32 U/L (15-37); SGPT/ALT 16 U/L (12-78); SODIUM 148 mmol/L (136-145)
[2017-12-04 07:38] LABS: ALK PHOS 62 U/L (45-117); BILIRUBIN,TOTAL 0.4 mg/dL (0.2-1.0); TOT PROT 5.4 g/dl (6.4-8.2)
[2017-12-04 07:53] LABS: BASO % 0.1 % (0-2.0); EOS % 0.2 % (0-4.5); HEMATOCRIT 21.8 % (32.4-45.2); LYMPH % 9.2 % (8-40); MCH 29.9 pg (25.7-33.7); MCHC 31.7 g/dl (32.0-36.0); MEAN CELL VOLUME 94.4 fl (80-96); MEAN PLT VOLUME 8.4 fl (7.5-11.1); NEUT % 85.5 % (42.8-82.8); PLATELET COUNT 122 K/MM3 (134-434); RBC 2.31 M/mm3 (3.60-5.2); RDW 15.1 % (11.6-15.6); WHITE BLOOD COUNT 7.4 K/mm3 (4.0-10.0)
--- NOTE | 2017-12-04 08:13 | PN ---
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, Physician - Current Medication List Current Medications: Active Medications Acetaminophen (Tylenol -) 650 mg PO Q6H PRN PRN Reason: FEVER Last Admin: 11/29/17 14:06 Dose: 650 mg Amlodipine Besylate (Norvasc -) 2.5 mg PO DAILY [facility] Last Admin: 12/03/17 09:35 Dose: 2.5 mg Aspirin (Ecotrin -) 81 mg PO DAILY [facility] Last Admin: 12/03/17 09:35 Dose: 81 mg Atorvastatin Calcium (Lipitor -) 10 mg PO HS [facility] Last Admin: 12/03/17 22:44 Dose: 10 mg Brimonidine Tartrate (Alphagan P 0.1% -) 1 drop OU TID [facility] Last Admin: 12/04/17 06:37 Dose: 1 drop Calcium Carbonate/Cholecalciferol (Os-Isacc 500+D -) 1 tab PO DAILY [facility] Last Admin: 12/03/17 09:35 Dose: 1 tab Citalopram Hydrobromide (Celexa -) 10 mg PO DAILY [facility] Last Admin: 12/03/17 09:35 Dose: 10 mg Cyanocobalamin (Vitamin B12 -) 1,000 mcg PO DAILY [facility] Last Admin: 12/03/17 09:35 Dose: 1,000 mcg Docusate Sodium (Colace -) 300 mg PO HS [facility] Last Admin: 12/03/17 22:45 Dose: Not Given Donepezil HCl (Aricept -) 10 mg PO DAILY [facility] Last Admin: 12/03/17 09:35 Dose: 10 mg Dorzolamide HCl (Trusopt 2%) 1 drop OU TID [facility] Last Admin: 12/04/17 06:38 Dose: 1 drop Ferrous Sulfate (Feosol -) 325 mg PO BID [facility] Last Admin: 12/03/17 22:44 Dose: 325 mg Folic Acid (Folic Acid -) 1 mg PO DAILY [facility] Last Admin: 12/03/17 09:35 Dose: 1 mg Heparin Sodium (Porcine) (Heparin -) 5,000 unit SQ TID [facility] Last Admin: 12/04/17 06:37 Dose: 5,000 unit Dextrose (D5w -) 1,000 mls @ 83 mls/hr IV ASDIR [facility] Last Admin: 12/03/17 15:16 Dose: 83 mls/hr Insulin Aspart (Novolog Vial Sliding Scale -) 1 vial SQ TIDAC [facility] PRN Reason: Protocol Last Admin: 12/04/17 06:38 Dose: 6 units Insulin Aspart (Novolog Vial Sliding Scale -) 1 vial SQ HS [facility] PRN Reason: Protocol Last Admin: 12/03/17 22:50 Dose: 2 units Insulin Detemir (Levemir Vial) 10 units SQ HS [facility] Last Admin: 12/03/17 22:52 Dose: Not Given Latanoprost (Xalatan 0.005% Eye Drops -) 1 drop OU HS [facility] Last Admin: 12/03/17 22:50 Dose: 1 drop Pilocarpine HCl (Pilostat 1% -) 1 drop OU QID [facility] Last Admin: 12/03/17 22:49 Dose: 1 drop - Objective Vital Signs: Vital Signs Temperature 99.3 F 12/04/17 05:55 Pulse Rate 70 12/04/17 05:55 Respiratory Rate 20 12/04/17 05:55 Blood Pressure 120/50 12/04/17 05:55 O2 Sat by Pulse Oximetry (%) 100 12/03/17 21:00 Labs: CBC, BMP 12/04/17 06:30 INR, PTT INR 0.96 (0.82-1.09) 11/28/17 12:44 Problem List - Problems (1) BING (acute kidney injury) Code(s): N17.9 - ACUTE KIDNEY FAILURE, UNSPECIFIED (2) Altered mental status Code(s): R41.82 - ALTERED MENTAL STATUS, UNSPECIFIED Qualifiers: Altered mental status type: unspecified Qualified Code(s): R41.82 - Altered mental status, unspecified (3) Anemia Code(s): D64.9 - ANEMIA, UNSPECIFIED Qualifiers: Anemia type: unspecified type Qualified Code(s): D64.9 - Anemia, unspecified (4) Elevated troponin Code(s): R74.8 - ABNORMAL LEVELS OF OTHER SERUM ENZYMES Assessment/Plan - Problems (1) BING (acute kidney injury) Assessment/Plan: -seen by nephrology -chronic Code(s): N17.9 - ACUTE KIDNEY FAILURE, UNSPECIFIED (2) Altered mental status Assessment/Plan: -underlying dementia, exacerbated mental status 2/2 to acute infection Code(s): R41.82 - ALTERED MENTAL STATUS, UNSPECIFIED Qualifiers: Altered mental status type: unspecified Qualified Code(s): R41.82 - Altered mental status, unspecified (3) Anemia Assessment/Plan: -prbc given -monitor h/h -hematology consult Code(s): D64.9 - ANEMIA, UNSPECIFIED Qualifiers: Anemia type: unspecified type Qualified Code(s): D64.9 - Anemia, unspecified (4) Poor Oral Intake--Dehydration Assessment/Plan: Consider peg gi eval (5) Hypernatremia Assessment/Plan: -seen by nephrology -hypotonic fluids increased -repeat labs in AM Code(s): E87.0 - HYPEROSMOLALITY AND HYPERNATREMIA (6) UTI (urinary tract infection) Assessment/Plan: -seen by ID -ESBL in the urine -isolation precautions -Off IV abx Code(s): N39.0 - URINARY TRACT INFECTION, SITE NOT SPECIFIED
[2017-12-04 08:50] LABS: HEMOGLOBIN 6.9 GM/dL (10.7-15.3)
--- NOTE | 2017-12-04 08:59 | PN ---
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, Physician History of Present Illness: Chart reviewed. Events noted. The patient cannot provide history. Recalled for possible PEG Clinically better, remains non-communicative. Eating 75% of meals, as documented in chart. Speech and swallow follow-up noted. Hgb 6.9 this am w/o any external signs of blood loss, or hemodynamic changes. CKD - Current Medication List Current Medications: Active Medications Acetaminophen (Tylenol -) 650 mg PO Q6H PRN PRN Reason: FEVER Last Admin: 11/29/17 14:06 Dose: 650 mg Amlodipine Besylate (Norvasc -) 2.5 mg PO DAILY [facility] Last Admin: 12/03/17 09:35 Dose: 2.5 mg Aspirin (Ecotrin -) 81 mg PO DAILY [facility] Last Admin: 12/03/17 09:35 Dose: 81 mg Atorvastatin Calcium (Lipitor -) 10 mg PO HS [facility] Last Admin: 12/03/17 22:44 Dose: 10 mg Brimonidine Tartrate (Alphagan P 0.1% -) 1 drop OU TID [facility] Last Admin: 12/04/17 06:37 Dose: 1 drop Calcium Carbonate/Cholecalciferol (Os-Isacc 500+D -) 1 tab PO DAILY [facility] Last Admin: 12/03/17 09:35 Dose: 1 tab Citalopram Hydrobromide (Celexa -) 10 mg PO DAILY [facility] Last Admin: 12/03/17 09:35 Dose: 10 mg Cyanocobalamin (Vitamin B12 -) 1,000 mcg PO DAILY [facility] Last Admin: 12/03/17 09:35 Dose: 1,000 mcg Docusate Sodium (Colace -) 300 mg PO [facility] Last Admin: 12/03/17 22:45 Dose: Not Given Donepezil HCl (Aricept -) 10 mg PO DAILY [facility] Last Admin: 12/03/17 09:35 Dose: 10 mg Dorzolamide HCl (Trusopt 2%) 1 drop OU TID [facility] Last Admin: 12/04/17 06:38 Dose: 1 drop Ferrous Sulfate (Feosol -) 325 mg PO BID [facility] Last Admin: 12/03/17 22:44 Dose: 325 mg Folic Acid (Folic Acid -) 1 mg PO DAILY [facility] Last Admin: 12/03/17 09:35 Dose: 1 mg Heparin Sodium (Porcine) (Heparin -) 5,000 unit SQ TID [facility] Last Admin: 12/04/17 06:37 Dose: 5,000 unit Dextrose (D5w -) 1,000 mls @ 83 mls/hr IV [facility] Last Admin: 12/03/17 15:16 Dose: 83 mls/hr Insulin Aspart (Novolog Vial Sliding Scale -) 1 vial SQ TIDAC [facility] PRN Reason: Protocol Last Admin: 12/04/17 06:38 Dose: 6 units Insulin Aspart (Novolog Vial Sliding Scale -) 1 vial SQ HS [facility] PRN Reason: Protocol Last Admin: 12/03/17 22:50 Dose: 2 units Insulin Detemir (Levemir Vial) 10 units SQ HS [facility] Last Admin: 12/03/17 22:52 Dose: Not Given Latanoprost (Xalatan 0.005% Eye Drops -) 1 drop OU HS [facility] Last Admin: 12/03/17 22:50 Dose: 1 drop Pilocarpine HCl (Pilostat 1% -) 1 drop OU QID [facility] Last Admin: 12/03/17 22:49 Dose: 1 drop - Objective Vital Signs: Vital Signs Temperature 99.3 F 12/04/17 05:55 Pulse Rate 70 12/04/17 05:55 Respiratory Rate 20 12/04/17 05:55 Blood Pressure 120/50 12/04/17 05:55 O2 Sat by Pulse Oximetry (%) 100 12/03/17 21:00 Labs: CBC, BMP 12/04/17 06:30 12/04/17 06:30 INR, PTT INR 0.96 (0.82-1.09) 11/28/17 12:44 CBCD WBC 7.4 K/mm3 (4.0-10.0) 12/04/17 06:30 RBC 2.31 M/mm3 (3.60-5.2) L D 12/04/17 06:30 Hgb 6.9 GM/dL (10.7-15.3) L* D 12/04/17 06:30 Hct 21.8 % (32.4-45.2) L D 12/04/17 06:30 MCV 94.4 fl (80-96) 12/04/17 06:30 MCHC 31.7 g/dl (32.0-36.0) L 12/04/17 06:30 RDW 15.1 % (11.6-15.6) 12/04/17 06:30 Plt Count 122 K/MM3 (134-434) L 12/04/17 06:30 MPV 8.4 fl (7.5-11.1) D 12/04/17 06:30 CMP Sodium 148 mmol/L (136-145) H 12/04/17 06:30 Potassium 4.9 mmol/L (3.5-5.1) 12/04/17 06:30 Chloride 114 mmol/L (98-107) H 12/04/17 06:30 Carbon Dioxide 26 mmol/L (21-32) 12/04/17 06:30 Anion Gap 8 (8-16) 12/04/17 06:30 BUN 91 mg/dL (7-18) H 12/04/17 06:30 Creatinine 3.7 mg/dL (0.55-1.02) H 12/04/17 06:30 Creat Clearance w eGFR 12.15 (>60) 12/04/17 06:30 Calcium 7.9 mg/dL (8.5-10.1) L 12/04/17 06:30 Total Bilirubin 0.4 mg/dL (0.2-1.0) D 12/04/17 06:30 AST 32 U/L (15-37) 12/04/17 06:30 ALT 16 U/L (12-78) 12/04/17 06:30 Alkaline Phosphatase 62 U/L (45-117) 12/04/17 06:30 Total Protein 5.4 g/dl (6.4-8.2) L 12/04/17 06:30 Albumin 1.9 g/dl (3.4-5.0) L 12/04/17 06:30 Problem List - Problems (1) BING (acute kidney injury) Code(s): N17.9 - ACUTE KIDNEY FAILURE, UNSPECIFIED (2) Altered mental status Code(s): R41.82 - ALTERED MENTAL STATUS, UNSPECIFIED Qualifiers: Altered mental status type: unspecified Qualified Code(s): R41.82 - Altered mental status, unspecified (3) Anemia Code(s): D64.9 - ANEMIA, UNSPECIFIED Qualifiers: Anemia type: unspecified type Qualified Code(s): D64.9 - Anemia, unspecified (4) Elevated troponin Code(s): R74.8 - ABNORMAL LEVELS OF OTHER SERUM ENZYMES (5) Hypernatremia Code(s): E87.0 - HYPEROSMOLALITY AND HYPERNATREMIA (6) UTI (urinary tract infection) Code(s): N39.0 - URINARY TRACT INFECTION, SITE NOT SPECIFIED Assessment/Plan Alerted mental status ? Need got PEG. As documented, eating 75% of meals. Will discuss with Kathryn Dillon No external signs of GI bleeding. ?Anemia 2 CKD Aspiration precautions Will follow
--- NOTE | 2017-12-04 10:20 | PN ---
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 (short form) - Note 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: Neurology History of Present Illness Patient is a 66-year-old female past medical history of anemia, stage IV CAD, dementia, presents to the emergency department today from [facility] with the chief complaint of altered mental status. History per notes as patient is nonverbal. She states that the patient is usually A&Ox3, verbal calling out and aggressive. During my evaluation has been nonverbal, not following commands. CT head was repeated and reviewed and did not show acute changes. Being managed for alerted mental status, toxic metabolic encephalopathy. Has underlying dementia, on Donepezil. Altered mental status, ID following, getting treatment for UTI, on Ceftriaxone. Holding sinemet as patient not improved and in the event this may be causing sedation, no improvement, therefore will restart as this is not etiology of sedation. Active Medications Acetaminophen (Tylenol -) 650 mg PO Q6H PRN PRN Reason: FEVER Last Admin: 11/29/17 14:06 Dose: 650 mg Amlodipine Besylate (Norvasc -) 2.5 mg PO DAILY [facility] Last Admin: 12/03/17 09:35 Dose: 2.5 mg Aspirin (Ecotrin -) 81 mg PO DAILY [facility] Last Admin: 12/03/17 09:35 Dose: 81 mg Atorvastatin Calcium (Lipitor -) 10 mg PO HS [facility] Last Admin: 12/03/17 22:44 Dose: 10 mg Brimonidine Tartrate (Alphagan P 0.1% -) 1 drop OU TID [facility] Last Admin: 12/04/17 06:37 Dose: 1 drop Calcium Carbonate/Cholecalciferol (Os-Isacc 500+D -) 1 tab PO DAILY [facility] Last Admin: 12/03/17 09:35 Dose: 1 tab Citalopram Hydrobromide (Celexa -) 10 mg PO DAILY [facility] Last Admin: 12/03/17 09:35 Dose: 10 mg Cyanocobalamin (Vitamin B12 -) 1,000 mcg PO DAILY [facility] Last Admin: 12/03/17 09:35 Dose: 1,000 mcg Docusate Sodium (Colace -) 300 mg PO HS [facility] Last Admin: 12/03/17 22:45 Dose: Not Given Donepezil HCl (Aricept -) 10 mg PO DAILY [facility] Last Admin: 12/03/17 09:35 Dose: 10 mg Dorzolamide HCl (Trusopt 2%) 1 drop OU TID [facility] Last Admin: 12/04/17 06:38 Dose: 1 drop Ferrous Sulfate (Feosol -) 325 mg PO BID [facility] Last Admin: 12/03/17 22:44 Dose: 325 mg Folic Acid (Folic Acid -) 1 mg PO DAILY [facility] Last Admin: 12/03/17 09:35 Dose: 1 mg Heparin Sodium (Porcine) (Heparin -) 5,000 unit SQ TID [facility] Last Admin: 12/04/17 06:37 Dose: 5,000 unit Dextrose (D5w -) 1,000 mls @ 83 mls/hr IV ASDIR [facility] Last Admin: 12/03/17 15:16 Dose: 83 mls/hr Insulin Aspart (Novolog Vial Sliding Scale -) 1 vial SQ TIDAC [facility] PRN Reason: Protocol Last Admin: 12/04/17 06:38 Dose: 6 units Insulin Aspart (Novolog Vial Sliding Scale -) 1 vial SQ HS [facility] PRN Reason: Protocol Last Admin: 12/03/17 22:50 Dose: 2 units Insulin Detemir (Levemir Vial) 10 units SQ HS [facility] Last Admin: 12/03/17 22:52 Dose: Not Given Latanoprost (Xalatan 0.005% Eye Drops -) 1 drop OU HS [facility] Last Admin: 12/03/17 22:50 Dose: 1 drop Pilocarpine HCl (Pilostat 1% -) 1 drop OU QID [facility] Last Admin: 12/03/17 22:49 Dose: 1 drop *Physical Exam Vital Signs Temperature 99.3 F 12/04/17 05:55 Pulse Rate 70 12/04/17 05:55 Respiratory Rate 20 12/04/17 05:55 Blood Pressure 120/50 12/04/17 05:55 O2 Sat by Pulse Oximetry (%) 100 12/03/17 21:00 GENERAL: Well developed, well nourished. Awake and alert to name only. No acute distress. Reaching out of exam bed. HEENT: Normocephalic, atraumatic. PERRLA, EOMI. No conjunctival pallor. Sclera are non- icteric. Moist mucous membranes. Oropharynx is clear. NECK: Supple. Full ROM. No JVD. Carotid pulses 2+ and symmetric, without bruits. No thyromegaly. No lymphadenopathy. CARDIOVASCULAR: Regular rate and rhythm. Systolic murmur II/ along the R and L 2nd/3rd intercostal space . No rubs, or gallops. Distal pulses are 2+ and symmetric. PULMONARY: No evidence of respiratory distress. Lungs clear to auscultation bilaterally. No wheezing, rales or rhonchi. ABDOMINAL: Soft. Non-tender. Non-distended. No rebound or guarding. No organomegaly. Normoactive bowel sounds. MUSCULOSKELETAL Normal range of motion at all joints. No bony deformities or tenderness. No CVA tenderness. EXTREMITIES: No cyanosis. No clubbing. No edema. No calf tenderness. SKIN: Warm and dry. Normal capillary refill. No rashes. No jaundice. NEUROLOGICAL: Unable to perform a neuro exam. Pt. is non-verbal, not responding to commands and aggressive. Toes are down-going bilaterally. Gait is not observed. PSYCHIATRIC: Cooperative. Good eye contact. Appropriate mood and affect. CBCD WBC 7.4 K/mm3 (4.0-10.0) 12/04/17 06:30 RBC 2.31 M/mm3 (3.60-5.2) L D 12/04/17 06:30 Hgb 6.9 GM/dL (10.7-15.3) L* D 12/04/17 06:30 Hct 21.8 % (32.4-45.2) L D 12/04/17 06:30 MCV 94.4 fl (80-96) 12/04/17 06:30 MCHC 31.7 g/dl (32.0-36.0) L 12/04/17 06:30 RDW 15.1 % (11.6-15.6) 12/04/17 06:30 Plt Count 122 K/MM3 (134-434) L 12/04/17 06:30 MPV 8.4 fl (7.5-11.1) D 12/04/17 06:30 CMP Sodium 148 mmol/L (136-145) H 12/04/17 06:30 Potassium 4.9 mmol/L (3.5-5.1) 12/04/17 06:30 Chloride 114 mmol/L (98-107) H 12/04/17 06:30 Carbon Dioxide 26 mmol/L (21-32) 12/04/17 06:30 Anion Gap 8 (8-16) 12/04/17 06:30 BUN 91 mg/dL (7-18) H 12/04/17 06:30 Creatinine 3.7 mg/dL (0.55-1.02) H 12/04/17 06:30 Creat Clearance w eGFR 12.15 (>60) 12/04/17 06:30 Calcium 7.9 mg/dL (8.5-10.1) L 12/04/17 06:30 Total Bilirubin 0.4 mg/dL (0.2-1.0) D 12/04/17 06:30 AST 32 U/L (15-37) 12/04/17 06:30 ALT 16 U/L (12-78) 12/04/17 06:30 Alkaline Phosphatase 62 U/L (45-117) 12/04/17 06:30 Total Protein 5.4 g/dl (6.4-8.2) L 12/04/17 06:30 Albumin 1.9 g/dl (3.4-5.0) L 12/04/17 06:30 CT head reviewed Medical Decision Making 66-year-old female past medical history of anemia, stage IV CAD, dementia, presents to the emergency department today from [facility] with the chief complaint of altered mental status. History per notes as patient is nonverbal. She states that the patient is usually A&Ox3, verbal calling out and aggressive. During my evaluation has been nonverbal, restless. CT head reviewed and did not show acute changes. For underlying dementia, continue on Donepezil. Hemoglobin improved s/p transfusion ID following for UTI On ceftriaxone Continue medical optimization Nephrology follow up regarding hypernatermia and CKD Will restart sinemet as no improvement off medication, not likely etiology Continue medical optimization
[2017-12-04] MEDS: DONEPEZIL HCL 10 MG TABLET (FP) PO SCH (11:14)
[2017-12-04] MEDS: CITALOPRAM HYDROBROMIDE 10 MG TABLET (FP) PO SCH (11:14)
[2017-12-04] MEDS: FOLIC ACID 1 MG TABLET (FP) PO SCH (11:14)
[2017-12-04] MEDS: amLODIPine BESYLATE 2.5 MG TABLET (FP) PO SCH (11:14)
[2017-12-04] MEDS: CYANOCOBALAMIN 1,000 MCG TABLET (FP) PO SCH (11:14)
[2017-12-04] MEDS: CALCIUM 500MG/VIT-D 200 UNITS COMBO TABLET (FP) PO SCH (11:14)
[2017-12-04] MEDS: FERROUS SO4 325 MG TABLET (FP) PO SCH ×2 (11:14→22:22)
--- NOTE | 2017-12-04 11:16 | PN ---
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, PRACTICAL NURSE - Note 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: Selected Entries 11/30/17 11/30/17 11/30/17 01:00 06:00 08:00 Breakfast Lunch Temperature 99.5 F 98.2 F 98.9 F 11/30/17 12:34 Breakfast 75% Lunch 75% Temperature Laboratory Tests 11/30/17 06:50 WBC 7.0 Selected Entries 12/02/17 12/02/17 12/02/17 01:00 08:01 16:45 Supper Temperature 97.4 F L 97.4 F L 98.3 F 12/02/17 12/02/17 12/02/17 17:00 19:25 22:00 Supper 50% Temperature 99.0 F 99.0 F 12/03/17 12/03/17 12/03/17 02:00 06:00 07:25 Supper Temperature 98.9 F 98.3 F 98.3 F Laboratory Tests 12/01/17 06:45 WBC 8.0 Selected Entries 12/03/17 14:00 Breakfast 25% Lunch 25% Laboratory Tests 12/04/17 06:30 WBC 7.4 Pt doing well on pureed diet and necar thick liquids. Non communicative Vocal but unintelligible today. Indication for PEG being addressed. What are pt's end of life wishes? Pt is tolerating PO diet so far. PO acceptance varies. Encourage supplements for increased density of nutritional intake. Add Magic cup,Ensure compact.
--- NOTE | 2017-12-04 12:02 | PN ---
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 (short form) - Note 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: Patient seen and examined non verbal. ROS limited Cor: RSR, No murmurs, No gallops Lungs: Clear to P&A Abd: Soft, Normal bowel sounds, No organomegaly Ext:No significant edema Last Vital Signs Temp Pulse Resp BP Pulse Ox 99.3 F 70 20 120/50 100 12/04/17 05:55 12/04/17 05:55 12/04/17 05:55 12/04/17 05:55 12/03/17 21:00 CBC, BMP 12/04/17 06:30 12/04/17 06:30 Current Medications Generic Name Dose Route Start Last Admin Trade Name Freq PRN Reason Stop Dose Admin Acetaminophen 650 mg 11/29/17 13:50 11/29/17 14:06 Tylenol - PO 650 mg Q6H PRN Administration FEVER Amlodipine Besylate 2.5 mg 11/30/17 20:00 12/04/17 11:14 Norvasc - PO 2.5 mg DAILY [facility] Administration Aspirin 81 mg 11/29/17 10:00 12/03/17 09:35 Ecotrin - PO 81 mg DAILY [facility] Administration Atorvastatin Calcium 10 mg 11/29/17 22:00 12/03/17 22:44 Lipitor - PO 10 mg HS [facility] Administration Brimonidine Tartrate 1 drop 11/29/17 06:00 12/04/17 06:37 Alphagan P 0.1% - OU 1 drop TID [facility] Administration Calcium Carbonate/Cholecalciferol 1 tab 11/29/17 10:00 12/04/17 11:14 Os-Isacc 500+D - PO 1 tab DAILY [facility] Administration Carbidopa/Levodopa 1 each 12/04/17 14:00 Sinemet 25/100 - PO TID [facility] Citalopram Hydrobromide 10 mg 11/29/17 10:00 12/04/17 11:14 Celexa - PO 10 mg DAILY [facility] Administration Cyanocobalamin 1,000 mcg 11/29/17 10:00 12/04/17 11:14 Vitamin B12 - PO 1,000 mcg DAILY [facility] Administration Docusate Sodium 300 mg 11/29/17 22:00 12/03/17 22:45 Colace - PO Not Given HS [facility] Donepezil HCl 10 mg 11/29/17 10:00 12/04/17 11:14 Aricept - PO 10 mg DAILY [facility] Administration Dorzolamide HCl 1 drop 11/29/17 06:00 12/04/17 06:38 Trusopt 2% OU 1 drop TID [facility] Administration Ferrous Sulfate 325 mg 11/29/17 10:00 12/04/17 11:14 Feosol - PO 325 mg BID [facility] Administration Folic Acid 1 mg 11/29/17 10:00 12/04/17 11:14 Folic Acid - PO 1 mg DAILY [facility] Administration Heparin Sodium (Porcine) 5,000 unit 11/29/17 06:00 12/04/17 06:37 Heparin - SQ 5,000 unit TID [facility] Administration Dextrose 1,000 mls @ 83 mls/hr 12/03/17 15:00 12/03/17 15:16 D5w - IV 83 mls/hr ASDIR [facility] Administration Insulin Aspart 1 vial 11/29/17 07:00 12/04/17 06:38 Novolog Vial Sliding Scale - SQ 6 units TIDAC [facility] Administration Protocol Insulin Aspart 1 vial 11/29/17 22:00 12/03/17 22:50 Novolog Vial Sliding Scale - SQ 2 units HS [facility] Administration Protocol Insulin Detemir 10 units 11/29/17 22:00 12/03/17 22:52 Levemir Vial SQ Not Given HS [facility] Latanoprost 1 drop 11/29/17 22:00 12/03/17 22:50 Xalatan 0.005% Eye Drops - OU 1 drop HS [facility] Administration Pilocarpine HCl 1 drop 11/29/17 10:00 12/03/17 22:49 Pilostat 1% - OU 1 drop QID [facility] Administration Anemia GI losses not excluded now being transfused component of ACD also noted, will need to consider epogen, ferritin adequate hold DVT ppx in the setting of melanotic stools
[2017-12-04] MEDS: ASPIRIN COATED 81 MG TABLET.EC PO SCH (12:14)
[2017-12-04] MEDS: PILOCARPINE 1% OPHTHALMIC SOLUTION 15 ML BOTTLE OU SCH ×4 (13:40→22:25)
[2017-12-04] MEDS ORDERED: DEXTROSE 5%-WATER - 1,000 ML IV SCH (15:27)
--- NOTE | 2017-12-04 15:27 | PN ---
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, Physician History of Present Illness: Pt seen and examined at bedside. She galvan not respond to verbal stimuli. Spoke to nursing staff and pt has completed all her meals today. - Current Medication List Current Medications: Active Medications Acetaminophen (Tylenol -) 650 mg PO Q6H PRN PRN Reason: FEVER Last Admin: 11/29/17 14:06 Dose: 650 mg Amlodipine Besylate (Norvasc -) 2.5 mg PO DAILY [facility] Last Admin: 12/04/17 11:14 Dose: 2.5 mg Aspirin (Ecotrin -) 81 mg PO DAILY [facility] Last Admin: 12/04/17 12:14 Dose: Not Given Atorvastatin Calcium (Lipitor -) 10 mg PO [facility] Last Admin: 12/03/17 22:44 Dose: 10 mg Brimonidine Tartrate (Alphagan P 0.1% -) 1 drop OU TID [facility] Last Admin: 12/04/17 06:37 Dose: 1 drop Calcium Carbonate/Cholecalciferol (Os-Isacc 500+D -) 1 tab PO DAILY [facility] Last Admin: 12/04/17 11:14 Dose: 1 tab Carbidopa/Levodopa (Sinemet 25/100 -) 1 each PO TID [facility] Citalopram Hydrobromide (Celexa -) 10 mg PO DAILY [facility] Last Admin: 12/04/17 11:14 Dose: 10 mg Cyanocobalamin (Vitamin B12 -) 1,000 mcg PO DAILY [facility] Last Admin: 12/04/17 11:14 Dose: 1,000 mcg Docusate Sodium (Colace -) 300 mg PO [facility] Last Admin: 12/03/17 22:45 Dose: Not Given Donepezil HCl (Aricept -) 10 mg PO DAILY [facility] Last Admin: 12/04/17 11:14 Dose: 10 mg Dorzolamide HCl (Trusopt 2%) 1 drop OU TID [facility] Last Admin: 12/04/17 06:38 Dose: 1 drop Ferrous Sulfate (Feosol -) 325 mg PO BID [facility] Last Admin: 12/04/17 11:14 Dose: 325 mg Folic Acid (Folic Acid -) 1 mg PO DAILY [facility] Last Admin: 12/04/17 11:14 Dose: 1 mg Heparin Sodium (Porcine) (Heparin -) 5,000 unit SQ TID [facility] Last Admin: 12/04/17 06:37 Dose: 5,000 unit Dextrose (D5w -) 1,000 mls @ 83 mls/hr IV ASDIR [facility] Last Admin: 12/03/17 15:16 Dose: 83 mls/hr Insulin Aspart (Novolog Vial Sliding Scale -) 1 vial SQ TIDAC [facility] PRN Reason: Protocol Last Admin: 12/04/17 12:45 Dose: 8 units Insulin Aspart (Novolog Vial Sliding Scale -) 1 vial SQ HS [facility] PRN Reason: Protocol Last Admin: 12/03/17 22:50 Dose: 2 units Insulin Detemir (Levemir Vial) 10 units SQ HS [facility] Last Admin: 12/03/17 22:52 Dose: Not Given Latanoprost (Xalatan 0.005% Eye Drops -) 1 drop OU HS [facility] Last Admin: 12/03/17 22:50 Dose: 1 drop Pilocarpine HCl (Pilostat 1% -) 1 drop OU QID [facility] Last Admin: 12/04/17 13:40 Dose: Not Given - Objective Vital Signs: Vital Signs Temperature 98.3 F 12/04/17 14:00 Pulse Rate 70 12/04/17 14:00 Respiratory Rate 20 12/04/17 05:55 Blood Pressure 121/47 12/04/17 14:00 O2 Sat by Pulse Oximetry (%) 100 12/03/17 21:00 Constitutional: Yes: Calm Eyes: Yes: Conjunctiva Clear HENT: Yes: Atraumatic Neck: Yes: Supple Cardiovascular: Yes: S1, S2 Gastrointestinal: Yes: Soft Genitourinary: Yes: Incontinence Musculoskeletal: Yes: Muscle Weakness Edema: No Neurological: Yes: Lethargy Labs: CBC, BMP 12/04/17 06:30 12/04/17 06:30 INR, PTT INR 0.96 (0.82-1.09) 11/28/17 12:44 Problem List - Problems (1) BING (acute kidney injury) Code(s): N17.9 - ACUTE KIDNEY FAILURE, UNSPECIFIED (2) Altered mental status Code(s): R41.82 - ALTERED MENTAL STATUS, UNSPECIFIED Qualifiers: Altered mental status type: unspecified Qualified Code(s): R41.82 - Altered mental status, unspecified (3) Hypernatremia Code(s): E87.0 - HYPEROSMOLALITY AND HYPERNATREMIA Assessment/Plan Current Medications Generic Name Dose Route Start Last Admin Trade Name Vigneshq PRN Reason Stop Dose Admin Acetaminophen 650 mg 11/29/17 13:50 11/29/17 14:06 Tylenol - PO 650 mg Q6H PRN Administration FEVER Amlodipine Besylate 2.5 mg 11/30/17 20:00 12/04/17 11:14 Norvasc - PO 2.5 mg DAILY [facility] Administration Aspirin 81 mg 11/29/17 10:00 12/04/17 12:14 Ecotrin - PO Not Given DAILY [facility] Atorvastatin Calcium 10 mg 11/29/17 22:00 12/03/17 22:44 Lipitor - PO 10 mg HS [facility] Administration Brimonidine Tartrate 1 drop 11/29/17 06:00 12/04/17 06:37 Alphagan P 0.1% - OU 1 drop TID [facility] Administration Calcium Carbonate/Cholecalciferol 1 tab 11/29/17 10:00 12/04/17 11:14 Os-Isacc 500+D - PO 1 tab DAILY [facility] Administration Carbidopa/Levodopa 1 each 12/04/17 14:00 Sinemet 25/100 - PO TID [facility] Citalopram Hydrobromide 10 mg 11/29/17 10:00 12/04/17 11:14 Celexa - PO 10 mg DAILY [facility] Administration Cyanocobalamin 1,000 mcg 11/29/17 10:00 12/04/17 11:14 Vitamin B12 - PO 1,000 mcg DAILY [facility] Administration Docusate Sodium 300 mg 11/29/17 22:00 12/03/17 22:45 Colace - PO Not Given HS [facility] Donepezil HCl 10 mg 11/29/17 10:00 12/04/17 11:14 Aricept - PO 10 mg DAILY [facility] Administration Dorzolamide HCl 1 drop 11/29/17 06:00 12/04/17 06:38 Trusopt 2% OU 1 drop TID [facility] Administration Ferrous Sulfate 325 mg 11/29/17 10:00 12/04/17 11:14 Feosol - PO 325 mg BID [facility] Administration Folic Acid 1 mg 11/29/17 10:00 12/04/17 11:14 Folic Acid - PO 1 mg DAILY [facility] Administration Heparin Sodium (Porcine) 5,000 unit 11/29/17 06:00 12/04/17 06:37 Heparin - SQ 5,000 unit TID [facility] Administration Dextrose 1,000 mls @ 83 mls/hr 12/03/17 15:00 12/03/17 15:16 D5w - IV 83 mls/hr ASDIR [facility] Administration Insulin Aspart 1 vial 11/29/17 07:00 12/04/17 12:45 Novolog Vial Sliding Scale - SQ 8 units TIDAC [facility] Administration Protocol Insulin Aspart 1 vial 11/29/17 22:00 12/03/17 22:50 Novolog Vial Sliding Scale - SQ 2 units HS [facility] Administration Protocol Insulin Detemir 10 units 11/29/17 22:00 12/03/17 22:52 Levemir Vial SQ Not Given HS [facility] Latanoprost 1 drop 11/29/17 22:00 12/03/17 22:50 Xalatan 0.005% Eye Drops - OU 1 drop HS [facility] Administration Pilocarpine HCl 1 drop 11/29/17 10:00 12/04/17 13:40 Pilostat 1% - OU Not Given QID [facility] Impression 1. CKD stage 4 2. anemia 3. change in mental status 4. hypernatremia 5. dehydration 6. Parkinson's disease 7. Depression Plan - will increase rate of d5w - check stool for occult blood - heme follow up - anemia workup in progress - repeat labs in am - may need to start EPO - abx per ID - will follow
[2017-12-04] MEDS: ACETAMINOPHEN 325 MG TABLET (FP) PO PRN (15:29)
[2017-12-04] MEDS: CARBIDOPA/LEVODOPA 25/100 TABLET (FP) PO SCH ×2 (15:29→22:22)
[2017-12-04] MEDS ORDERED: PT OWN MED DRAWER 7, Y5N ONE (22:18)
[2017-12-04] MEDS: ATORVASTATIN CA 10 MG TABLET (FP) PO SCH (22:22)
[2017-12-04] MEDS: DOCUSATE SODIUM 100 MG CAPSULE (FP) PO SCH (22:23)
[2017-12-04] MEDS: LATANOPROST 0.005% OPHTH SOLN 2.5ML BOTTLE OU SCH (22:26)
[2017-12-04] MEDS: INSULIN DETEMIR 100 UNITS/ML MDV SQ SCH (22:35)
[2017-12-05] MEDS: INSULIN SLIDING SCALE (NOVOLOG) 1 VIAL SQ SCH ×4 (06:13→22:32)
[2017-12-05] MEDS: BRIMONIDINE TARTRATE 0.1% OPHTHALMIC 5 ML BOTTLE OU SCH ×3 (06:15→22:36)
[2017-12-05] MEDS: DORZOLAMIDE 2% HCL OPHTHALMIC SOLUTION 10 ML BOTTLE OU SCH ×3 (06:15→22:34)
[2017-12-05] MEDS: CARBIDOPA/LEVODOPA 25/100 TABLET (FP) PO SCH ×3 (06:19→22:31)
--- NOTE | 2017-12-05 07:35 | PN ---
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, Physician History of Present Illness: IN BED LETHARGIC VEST IN PLACE FOR SAFETY - Current Medication List Current Medications: Active Medications Acetaminophen (Tylenol -) 650 mg PO Q6H PRN PRN Reason: FEVER Last Admin: 12/04/17 15:29 Dose: 650 mg Amlodipine Besylate (Norvasc -) 2.5 mg PO DAILY [facility] Last Admin: 12/04/17 11:14 Dose: 2.5 mg Aspirin (Ecotrin -) 81 mg PO DAILY [facility] Last Admin: 12/04/17 12:14 Dose: Not Given Atorvastatin Calcium (Lipitor -) 10 mg PO HS [facility] Last Admin: 12/04/17 22:22 Dose: 10 mg Brimonidine Tartrate (Alphagan P 0.1% -) 1 drop OU TID [facility] Last Admin: 12/05/17 06:15 Dose: 1 drop Calcium Carbonate/Cholecalciferol (Os-Isacc 500+D -) 1 tab PO DAILY [facility] Last Admin: 12/04/17 11:14 Dose: 1 tab Carbidopa/Levodopa (Sinemet 25/100 -) 1 each PO TID [facility] Last Admin: 12/05/17 06:19 Dose: 1 each Citalopram Hydrobromide (Celexa -) 10 mg PO DAILY [facility] Last Admin: 12/04/17 11:14 Dose: 10 mg Cyanocobalamin (Vitamin B12 -) 1,000 mcg PO DAILY [facility] Last Admin: 12/04/17 11:14 Dose: 1,000 mcg Docusate Sodium (Colace -) 300 mg PO [facility] Last Admin: 12/04/17 22:23 Dose: Not Given Donepezil HCl (Aricept -) 10 mg PO DAILY [facility] Last Admin: 12/04/17 11:14 Dose: 10 mg Dorzolamide HCl (Trusopt 2%) 1 drop OU TID [facility] Last Admin: 12/05/17 06:15 Dose: 1 drop Ferrous Sulfate (Feosol -) 325 mg PO BID [facility] Last Admin: 12/04/17 22:22 Dose: 325 mg Folic Acid (Folic Acid -) 1 mg PO DAILY [facility] Last Admin: 12/04/17 11:14 Dose: 1 mg Dextrose (D5w -) 1,000 mls @ 100 mls/hr IV ASDIR [facility] Last Admin: 12/04/17 19:02 Dose: Not Given Insulin Aspart (Novolog Vial Sliding Scale -) 1 vial SQ TIDAC [facility] PRN Reason: Protocol Last Admin: 12/05/17 06:13 Dose: 3 units Insulin Aspart (Novolog Vial Sliding Scale -) 1 vial SQ HS [facility] PRN Reason: Protocol Last Admin: 12/04/17 22:35 Dose: 4 units Insulin Detemir (Levemir Vial) 10 units SQ HS [facility] Last Admin: 12/04/17 22:35 Dose: 10 units Latanoprost (Xalatan 0.005% Eye Drops -) 1 drop OU HS [facility] Last Admin: 12/04/17 22:26 Dose: 1 drop Pilocarpine HCl (Pilostat 1% -) 1 drop OU QID [facility] Last Admin: 12/04/17 22:25 Dose: 1 drop - Objective Vital Signs: Vital Signs Temperature 98.5 F 12/05/17 06:00 Pulse Rate 72 12/05/17 06:00 Respiratory Rate 18 12/05/17 06:00 Blood Pressure 146/67 12/05/17 06:00 O2 Sat by Pulse Oximetry (%) 98 12/04/17 21:00 Cardiovascular: Yes: S1, S2 Respiratory: Yes: Regular, CTA Bilaterally Gastrointestinal: Yes: Normal Bowel Sounds, Soft Labs: CBC, BMP 12/04/17 06:30 12/04/17 06:30 INR, PTT INR 0.96 (0.82-1.09) 11/28/17 12:44 Problem List - Problems (1) BING (acute kidney injury) Code(s): N17.9 - ACUTE KIDNEY FAILURE, UNSPECIFIED (2) Altered mental status Code(s): R41.82 - ALTERED MENTAL STATUS, UNSPECIFIED Qualifiers: Altered mental status type: unspecified Qualified Code(s): R41.82 - Altered mental status, unspecified (3) Anemia Code(s): D64.9 - ANEMIA, UNSPECIFIED Qualifiers: Anemia type: unspecified type Qualified Code(s): D64.9 - Anemia, unspecified (4) Elevated troponin Code(s): R74.8 - ABNORMAL LEVELS OF OTHER SERUM ENZYMES Assessment/Plan - Problems (1) BING (acute kidney injury) Assessment/Plan: -seen by nephrology -chronic Code(s): N17.9 - ACUTE KIDNEY FAILURE, UNSPECIFIED (2) Altered mental status Assessment/Plan: -underlying dementia, exacerbated mental status 2/2 to acute infection Code(s): R41.82 - ALTERED MENTAL STATUS, UNSPECIFIED Qualifiers: Altered mental status type: unspecified Qualified Code(s): R41.82 - Altered mental status, unspecified (3) Anemia Assessment/Plan: -prbc given -monitor h/h -hematology consult -GI F/U--EGD Code(s): D64.9 - ANEMIA, UNSPECIFIED Qualifiers: Anemia type: unspecified type Qualified Code(s): D64.9 - Anemia, unspecified (4) Poor Oral Intake--Dehydration Assessment/Plan: Consider peg gi eval (5) Hypernatremia Assessment/Plan: -seen by nephrology -hypotonic fluids increased -repeat labs Code(s): E87.0 - HYPEROSMOLALITY AND HYPERNATREMIA (6) UTI (urinary tract infection) Assessment/Plan: -seen by ID -ESBL in the urine -isolation precautions -Off IV abx Code(s): N39.0 - URINARY TRACT INFECTION, SITE NOT SPECIFIED
[2017-12-05 08:11] LABS: BASO % 0.2 % (0-2.0); HEMATOCRIT 32.4 % (32.4-45.2); HEMOGLOBIN 10.8 GM/dL (10.7-15.3); LYMPH % 7.4 % (8-40); MCH 30.5 pg (25.7-33.7); MCHC 33.2 g/dl (32.0-36.0); MEAN CELL VOLUME 91.8 fl (80-96); MEAN PLT VOLUME 7.8 fl (7.5-11.1); NEUT % 86.4 % (42.8-82.8); PLATELET COUNT 153 K/MM3 (134-434); RBC 3.53 M/mm3 (3.60-5.2); RDW 14.7 % (11.6-15.6); WHITE BLOOD COUNT 8.9 K/mm3 (4.0-10.0)
[2017-12-05 08:53] LABS: ANION GAP 8 (8-16); BLOOD UREA NITROGEN 92 mg/dL (7-18); CALCIUM 8.8 mg/dL (8.5-10.1); CHLORIDE 115 mmol/L (98-107); CO2 29 mmol/L (21-32); CREATININE 3.7 mg/dL (0.55-1.02); GLUCOSE,RANDOM 152 mg/dL (74-106); POTASSIUM 5.2 mmol/L (3.5-5.1); SODIUM 152 mmol/L (136-145)
[2017-12-05] MEDS: CYANOCOBALAMIN 1,000 MCG TABLET (FP) PO SCH (09:43)
[2017-12-05] MEDS: ASPIRIN COATED 81 MG TABLET.EC PO SCH (09:43)
[2017-12-05] MEDS: amLODIPine BESYLATE 2.5 MG TABLET (FP) PO SCH (09:43)
[2017-12-05] MEDS: FERROUS SO4 325 MG TABLET (FP) PO SCH ×2 (09:43→22:41)
[2017-12-05] MEDS: FOLIC ACID 1 MG TABLET (FP) PO SCH (09:43)
[2017-12-05] MEDS: CALCIUM 500MG/VIT-D 200 UNITS COMBO TABLET (FP) PO SCH (09:43)
[2017-12-05] MEDS: CITALOPRAM HYDROBROMIDE 10 MG TABLET (FP) PO SCH (09:43)
[2017-12-05] MEDS: PILOCARPINE 1% OPHTHALMIC SOLUTION 15 ML BOTTLE OU SCH ×4 (09:43→22:35)
[2017-12-05] MEDS: DONEPEZIL HCL 10 MG TABLET (FP) PO SCH (09:43)
--- NOTE | 2017-12-05 09:48 | PN ---
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 (short form) - Note 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: Neurology History of Present Illness Patient is a 66-year-old female past medical history of anemia, stage IV CAD, dementia, presents to the emergency department today from [facility] with the chief complaint of altered mental status. History per notes as patient is nonverbal. She states that the patient is usually A&Ox3, verbal calling out and aggressive. During my evaluation has been nonverbal, not following commands. CT head was repeated and reviewed and did not show acute changes. Being managed for alerted mental status, toxic metabolic encephalopathy. Has underlying dementia, on Donepezil. Altered mental status, ID following, getting treatment for UTI, on Ceftriaxone. Sinemet restarted. Remains somnolent this AM. Getting ongoing medical optimization. Active Medications Acetaminophen (Tylenol -) 650 mg PO Q6H PRN PRN Reason: FEVER Last Admin: 12/04/17 15:29 Dose: 650 mg Amlodipine Besylate (Norvasc -) 2.5 mg PO DAILY [facility] Last Admin: 12/05/17 09:43 Dose: 2.5 mg Aspirin (Ecotrin -) 81 mg PO DAILY [facility] Last Admin: 12/05/17 09:43 Dose: 81 mg Atorvastatin Calcium (Lipitor -) 10 mg PO [facility] Last Admin: 12/04/17 22:22 Dose: 10 mg Brimonidine Tartrate (Alphagan P 0.1% -) 1 drop OU TID [facility] Last Admin: 12/05/17 06:15 Dose: 1 drop Calcium Carbonate/Cholecalciferol (Os-Isacc 500+D -) 1 tab PO DAILY [facility] Last Admin: 12/05/17 09:43 Dose: 1 tab Carbidopa/Levodopa (Sinemet 25/100 -) 1 each PO TID [facility] Last Admin: 12/05/17 06:19 Dose: 1 each Citalopram Hydrobromide (Celexa -) 10 mg PO DAILY [facility] Last Admin: 12/05/17 09:43 Dose: 10 mg Cyanocobalamin (Vitamin B12 -) 1,000 mcg PO DAILY [facility] Last Admin: 12/05/17 09:43 Dose: 1,000 mcg Docusate Sodium (Colace -) 300 mg PO HS [facility] Last Admin: 12/04/17 22:23 Dose: Not Given Donepezil HCl (Aricept -) 10 mg PO DAILY [facility] Last Admin: 12/05/17 09:43 Dose: 10 mg Dorzolamide HCl (Trusopt 2%) 1 drop OU TID [facility] Last Admin: 12/05/17 06:15 Dose: 1 drop Ferrous Sulfate (Feosol -) 325 mg PO BID [facility] Last Admin: 12/05/17 09:43 Dose: 325 mg Folic Acid (Folic Acid -) 1 mg PO DAILY [facility] Last Admin: 12/05/17 09:43 Dose: 1 mg Dextrose (D5w -) 1,000 mls @ 100 mls/hr IV ASDIR [facility] Last Admin: 12/04/17 19:02 Dose: Not Given Insulin Aspart (Novolog Vial Sliding Scale -) 1 vial SQ TIDAC [facility] PRN Reason: Protocol Last Admin: 12/05/17 06:13 Dose: 3 units Insulin Aspart (Novolog Vial Sliding Scale -) 1 vial SQ HS [facility] PRN Reason: Protocol Last Admin: 12/04/17 22:35 Dose: 4 units Insulin Detemir (Levemir Vial) 10 units SQ HS [facility] Last Admin: 12/04/17 22:35 Dose: 10 units Latanoprost (Xalatan 0.005% Eye Drops -) 1 drop OU HS [facility] Last Admin: 12/04/17 22:26 Dose: 1 drop Pilocarpine HCl (Pilostat 1% -) 1 drop OU QID [facility] Last Admin: 12/05/17 09:43 Dose: 1 drop *Physical Exam Vital Signs Temperature 98.5 F 12/05/17 06:00 Pulse Rate 72 12/05/17 06:00 Respiratory Rate 18 12/05/17 06:00 Blood Pressure 146/67 12/05/17 06:00 O2 Sat by Pulse Oximetry (%) 98 12/04/17 21:00 GENERAL: Well developed, well nourished. Awake and alert to name only. No acute distress. Reaching out of exam bed. HEENT: Normocephalic, atraumatic. PERRLA, EOMI. No conjunctival pallor. Sclera are non- icteric. Moist mucous membranes. Oropharynx is clear. NECK: Supple. Full ROM. No JVD. Carotid pulses 2+ and symmetric, without bruits. No thyromegaly. No lymphadenopathy. CARDIOVASCULAR: Regular rate and rhythm. Systolic murmur II/ along the R and L 2nd/3rd intercostal space . No rubs, or gallops. Distal pulses are 2+ and symmetric. PULMONARY: No evidence of respiratory distress. Lungs clear to auscultation bilaterally. No wheezing, rales or rhonchi. ABDOMINAL: Soft. Non-tender. Non-distended. No rebound or guarding. No organomegaly. Normoactive bowel sounds. MUSCULOSKELETAL Normal range of motion at all joints. No bony deformities or tenderness. No CVA tenderness. EXTREMITIES: No cyanosis. No clubbing. No edema. No calf tenderness. SKIN: Warm and dry. Normal capillary refill. No rashes. No jaundice. NEUROLOGICAL: Unable to perform a neuro exam. Pt. is non-verbal, not responding to commands and aggressive. Toes are down-going bilaterally. Gait is not observed. PSYCHIATRIC: Cooperative. Good eye contact. Appropriate mood and affect. CBCD WBC 8.9 K/mm3 (4.0-10.0) 12/05/17 07:36 RBC 3.53 M/mm3 (3.60-5.2) L D 12/05/17 07:36 Hgb 10.8 GM/dL (10.7-15.3) D 12/05/17 07:36 Hct 32.4 % (32.4-45.2) D 12/05/17 07:36 MCV 91.8 fl (80-96) 12/05/17 07:36 MCHC 33.2 g/dl (32.0-36.0) 12/05/17 07:36 RDW 14.7 % (11.6-15.6) 12/05/17 07:36 Plt Count 153 K/MM3 (134-434) D 12/05/17 07:36 MPV 7.8 fl (7.5-11.1) 12/05/17 07:36 CMP Sodium 152 mmol/L (136-145) H 12/05/17 07:36 Potassium 5.2 mmol/L (3.5-5.1) H 12/05/17 07:36 Chloride 115 mmol/L (98-107) H 12/05/17 07:36 Carbon Dioxide 29 mmol/L (21-32) 12/05/17 07:36 Anion Gap 8 (8-16) 12/05/17 07:36 BUN 92 mg/dL (7-18) H 12/05/17 07:36 Creatinine 3.7 mg/dL (0.55-1.02) H 12/05/17 07:36 Creat Clearance w eGFR 12.15 (>60) 12/04/17 06:30 Calcium 8.8 mg/dL (8.5-10.1) 12/05/17 07:36 Total Bilirubin 0.4 mg/dL (0.2-1.0) D 12/04/17 06:30 AST 32 U/L (15-37) 12/04/17 06:30 ALT 16 U/L (12-78) 12/04/17 06:30 Alkaline Phosphatase 62 U/L (45-117) 12/04/17 06:30 Total Protein 5.4 g/dl (6.4-8.2) L 12/04/17 06:30 Albumin 1.9 g/dl (3.4-5.0) L 12/04/17 06:30 CT head reviewed Medical Decision Making 66-year-old female past medical history of anemia, stage IV CAD, dementia, presents to the emergency department today from [facility] with the chief complaint of altered mental status. History per notes as patient is nonverbal. She states that the patient is usually A&Ox3, verbal calling out and aggressive. During my evaluation has been nonverbal, restless. CT head reviewed and did not show acute changes. For underlying dementia, continue on Donepezil. Hemoglobin improved s/p transfusion ID following for UTI On ceftriaxone Continue medical optimization Nephrology follow up regarding hypernatermia and CKD Started sinemet Continue medical optimization
--- NOTE | 2017-12-05 09:51 | PN ---
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, Physician History of Present Illness: Chart reviewed. Events noted. The patient cannot provide history. Recalled for possible PEG Clinically the same, remains non-communicative. Tolerating PO, as documented in chart. Speech and swallow follow-up noted. Hgb 6.9 this am w/o any external signs of blood loss, or hemodynamic changes. CKD Msg to call back left with HCP to discuss PEG - Current Medication List Current Medications: Active Medications Acetaminophen (Tylenol -) 650 mg PO Q6H PRN PRN Reason: FEVER Last Admin: 12/04/17 15:29 Dose: 650 mg Amlodipine Besylate (Norvasc -) 2.5 mg PO DAILY [facility] Last Admin: 12/05/17 09:43 Dose: 2.5 mg Aspirin (Ecotrin -) 81 mg PO DAILY [facility] Last Admin: 12/05/17 09:43 Dose: 81 mg Atorvastatin Calcium (Lipitor -) 10 mg PO HS [facility] Last Admin: 12/04/17 22:22 Dose: 10 mg Brimonidine Tartrate (Alphagan P 0.1% -) 1 drop OU TID [facility] Last Admin: 12/05/17 06:15 Dose: 1 drop Calcium Carbonate/Cholecalciferol (Os-Isacc 500+D -) 1 tab PO DAILY [facility] Last Admin: 12/05/17 09:43 Dose: 1 tab Carbidopa/Levodopa (Sinemet 25/100 -) 1 each PO TID [facility] Last Admin: 12/05/17 06:19 Dose: 1 each Citalopram Hydrobromide (Celexa -) 10 mg PO DAILY [facility] Last Admin: 12/05/17 09:43 Dose: 10 mg Cyanocobalamin (Vitamin B12 -) 1,000 mcg PO DAILY [facility] Last Admin: 12/05/17 09:43 Dose: 1,000 mcg Docusate Sodium (Colace -) 300 mg PO HS [facility] Last Admin: 12/04/17 22:23 Dose: Not Given Donepezil HCl (Aricept -) 10 mg PO DAILY [facility] Last Admin: 12/05/17 09:43 Dose: 10 mg Dorzolamide HCl (Trusopt 2%) 1 drop OU TID [facility] Last Admin: 12/05/17 06:15 Dose: 1 drop Ferrous Sulfate (Feosol -) 325 mg PO BID [facility] Last Admin: 01/24/18 09:43 Dose: 325 mg Folic Acid (Folic Acid -) 1 mg PO DAILY [facility] Last Admin: 12/05/17 09:43 Dose: 1 mg Dextrose (D5w -) 1,000 mls @ 100 mls/hr IV ASDIR [facility] Last Admin: 12/04/17 19:02 Dose: Not Given Insulin Aspart (Novolog Vial Sliding Scale -) 1 vial SQ TIDAC [facility] PRN Reason: Protocol Last Admin: 12/05/17 06:13 Dose: 3 units Insulin Aspart (Novolog Vial Sliding Scale -) 1 vial SQ HS [facility] PRN Reason: Protocol Last Admin: 12/04/17 22:35 Dose: 4 units Insulin Detemir (Levemir Vial) 10 units SQ HS [facility] Last Admin: 12/04/17 22:35 Dose: 10 units Latanoprost (Xalatan 0.005% Eye Drops -) 1 drop OU HS [facility] Last Admin: 12/04/17 22:26 Dose: 1 drop Pilocarpine HCl (Pilostat 1% -) 1 drop OU QID [facility] Last Admin: 12/05/17 09:43 Dose: 1 drop - Objective Vital Signs: Vital Signs Temperature 98.5 F 12/05/17 06:00 Pulse Rate 72 12/05/17 06:00 Respiratory Rate 18 12/05/17 06:00 Blood Pressure 146/67 12/05/17 06:00 O2 Sat by Pulse Oximetry (%) 98 12/04/17 21:00 Labs: CBC, BMP 12/05/17 07:36 12/05/17 07:36 INR, PTT INR 0.96 (0.82-1.09) 11/28/17 12:44 CBCD WBC 8.9 K/mm3 (4.0-10.0) 12/05/17 07:36 RBC 3.53 M/mm3 (3.60-5.2) L D 12/05/17 07:36 Hgb 10.8 GM/dL (10.7-15.3) D 12/05/17 07:36 Hct 32.4 % (32.4-45.2) D 12/05/17 07:36 MCV 91.8 fl (80-96) 12/05/17 07:36 MCHC 33.2 g/dl (32.0-36.0) 12/05/17 07:36 RDW 14.7 % (11.6-15.6) 12/05/17 07:36 Plt Count 153 K/MM3 (134-434) D 12/05/17 07:36 MPV 7.8 fl (7.5-11.1) 12/05/17 07:36 CMP Sodium 152 mmol/L (136-145) H 12/05/17 07:36 Potassium 5.2 mmol/L (3.5-5.1) H 12/05/17 07:36 Chloride 115 mmol/L (98-107) H 12/05/17 07:36 Carbon Dioxide 29 mmol/L (21-32) 12/05/17 07:36 Anion Gap 8 (8-16) 12/05/17 07:36 BUN 92 mg/dL (7-18) H 12/05/17 07:36 Creatinine 3.7 mg/dL (0.55-1.02) H 12/05/17 07:36 Creat Clearance w eGFR 12.15 (>60) 12/04/17 06:30 Calcium 8.8 mg/dL (8.5-10.1) 12/05/17 07:36 Total Bilirubin 0.4 mg/dL (0.2-1.0) D 12/04/17 06:30 AST 32 U/L (15-37) 12/04/17 06:30 ALT 16 U/L (12-78) 12/04/17 06:30 Alkaline Phosphatase 62 U/L (45-117) 12/04/17 06:30 Total Protein 5.4 g/dl (6.4-8.2) L 12/04/17 06:30 Albumin 1.9 g/dl (3.4-5.0) L 12/04/17 06:30 Problem List - Problems (1) BING (acute kidney injury) Code(s): N17.9 - ACUTE KIDNEY FAILURE, UNSPECIFIED (2) Altered mental status Code(s): R41.82 - ALTERED MENTAL STATUS, UNSPECIFIED Qualifiers: Qualified Code(s): R41.82 - Altered mental status, unspecified (3) Anemia Code(s): D64.9 - ANEMIA, UNSPECIFIED Qualifiers: Qualified Code(s): D64.9 - Anemia, unspecified (4) Elevated troponin Code(s): R74.8 - ABNORMAL LEVELS OF OTHER SERUM ENZYMES (5) Hypernatremia Code(s): E87.0 - HYPEROSMOLALITY AND HYPERNATREMIA (6) UTI (urinary tract infection) Code(s): N39.0 - URINARY TRACT INFECTION, SITE NOT SPECIFIED Assessment/Plan Alerted mental status ? Need for PEG. As documented, eating 75% of meals. Discussed with the speech and swallow. Msg left with HCP to call me back No external signs of GI bleeding. ?Anemia 2 CKD Aspiration precautions Will follow
[2017-12-05] MEDS ORDERED: SODIUM CHLORIDE 0.45% 1,000 ML IV SCH ×2 (11:45→21:00)
--- NOTE | 2017-12-05 12:05 | PN ---
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, Physician History of Present Illness: Pt seen and examined at bedside. She remains lethargic. She did have some of breakfast with the help of the aid. - Current Medication List Current Medications: Active Medications Acetaminophen (Tylenol -) 650 mg PO Q6H PRN PRN Reason: FEVER Last Admin: 12/04/17 15:29 Dose: 650 mg Amlodipine Besylate (Norvasc -) 2.5 mg PO DAILY [facility] Last Admin: 12/05/17 09:43 Dose: 2.5 mg Aspirin (Ecotrin -) 81 mg PO DAILY [facility] Last Admin: 12/05/17 09:43 Dose: 81 mg Atorvastatin Calcium (Lipitor -) 10 mg PO HS [facility] Last Admin: 12/04/17 22:22 Dose: 10 mg Brimonidine Tartrate (Alphagan P 0.1% -) 1 drop OU TID [facility] Last Admin: 12/05/17 06:15 Dose: 1 drop Calcium Carbonate/Cholecalciferol (Os-Isacc 500+D -) 1 tab PO DAILY [facility] Last Admin: 12/05/17 09:43 Dose: 1 tab Carbidopa/Levodopa (Sinemet 25/100 -) 1 each PO TID [facility] Last Admin: 12/05/17 06:19 Dose: 1 each Citalopram Hydrobromide (Celexa -) 10 mg PO DAILY [facility] Last Admin: 12/05/17 09:43 Dose: 10 mg Cyanocobalamin (Vitamin B12 -) 1,000 mcg PO DAILY [facility] Last Admin: 12/05/17 09:43 Dose: 1,000 mcg Docusate Sodium (Colace -) 300 mg PO HS [facility] Last Admin: 12/04/17 22:23 Dose: Not Given Donepezil HCl (Aricept -) 10 mg PO DAILY [facility] Last Admin: 12/05/17 09:43 Dose: 10 mg Dorzolamide HCl (Trusopt 2%) 1 drop OU TID [facility] Last Admin: 12/05/17 06:15 Dose: 1 drop Ferrous Sulfate (Feosol -) 325 mg PO BID [facility] Last Admin: 12/05/17 09:43 Dose: 325 mg Folic Acid (Folic Acid -) 1 mg PO DAILY [facility] Last Admin: 12/05/17 09:43 Dose: 1 mg Dextrose (D5w -) 1,000 mls @ 100 mls/hr IV ASDIR [facility] Last Admin: 12/04/17 19:02 Dose: Not Given Sodium Chloride (1/2 Normal Saline) 1,000 mls @ 83 mls/hr IV ASDIR [facility] Insulin Aspart (Novolog Vial Sliding Scale -) 1 vial SQ TIDAC [facility] PRN Reason: Protocol Last Admin: 12/05/17 06:13 Dose: 3 units Insulin Aspart (Novolog Vial Sliding Scale -) 1 vial SQ HS [facility] PRN Reason: Protocol Last Admin: 12/04/17 22:35 Dose: 4 units Insulin Detemir (Levemir Vial) 10 units SQ HS [facility] Last Admin: 12/04/17 22:35 Dose: 10 units Latanoprost (Xalatan 0.005% Eye Drops -) 1 drop OU HS [facility] Last Admin: 12/04/17 22:26 Dose: 1 drop Pilocarpine HCl (Pilostat 1% -) 1 drop OU QID [facility] Last Admin: 12/05/17 09:43 Dose: 1 drop - Objective Vital Signs: Vital Signs Temperature 98.5 F 12/05/17 06:00 Pulse Rate 72 12/05/17 06:00 Respiratory Rate 18 12/05/17 06:00 Blood Pressure 146/67 12/05/17 06:00 O2 Sat by Pulse Oximetry (%) 98 12/04/17 21:00 Constitutional: Yes: Calm Eyes: Yes: Conjunctiva Clear HENT: Yes: Atraumatic Neck: Yes: Supple Cardiovascular: Yes: S1, S2 Respiratory: Yes: CTA Bilaterally Gastrointestinal: Yes: Soft Genitourinary: Yes: [place]enn[place] Present Musculoskeletal: Yes: Muscle Weakness Edema: No Neurological: Yes: Lethargy Labs: CBC, BMP 12/05/17 07:36 12/05/17 07:36 INR, PTT INR 0.96 (0.82-1.09) 11/28/17 12:44 Problem List - Problems (1) BING (acute kidney injury) Code(s): N17.9 - ACUTE KIDNEY FAILURE, UNSPECIFIED (2) Altered mental status Code(s): R41.82 - ALTERED MENTAL STATUS, UNSPECIFIED Qualifiers: Altered mental status type: unspecified Qualified Code(s): R41.82 - Altered mental status, unspecified (3) Hypernatremia Code(s): E87.0 - HYPEROSMOLALITY AND HYPERNATREMIA Assessment/Plan Current Medications Generic Name Dose Route Start Last Admin Trade Name Elo PRN Reason Stop Dose Admin Acetaminophen 650 mg 11/29/17 13:50 12/04/17 15:29 Tylenol - PO 650 mg Q6H PRN Administration FEVER Amlodipine Besylate 2.5 mg 11/30/17 20:00 12/05/17 09:43 Norvasc - PO 2.5 mg DAILY [facility] Administration Aspirin 81 mg 11/29/17 10:00 12/05/17 09:43 Ecotrin - PO 81 mg DAILY [facility] Administration Atorvastatin Calcium 10 mg 11/29/17 22:00 12/04/17 22:22 Lipitor - PO 10 mg HS [facility] Administration Brimonidine Tartrate 1 drop 11/29/17 06:00 12/05/17 06:15 Alphagan P 0.1% - OU 1 drop TID [facility] Administration Calcium Carbonate/Cholecalciferol 1 tab 11/29/17 10:00 12/05/17 09:43 Os-Isacc 500+D - PO 1 tab DAILY [facility] Administration Carbidopa/Levodopa 1 each 12/04/17 14:00 12/05/17 06:19 Sinemet 25/100 - PO 1 each TID [facility] Administration Citalopram Hydrobromide 10 mg 11/29/17 10:00 12/05/17 09:43 Celexa - PO 10 mg DAILY [facility] Administration Cyanocobalamin 1,000 mcg 11/29/17 10:00 12/05/17 09:43 Vitamin B12 - PO 1,000 mcg DAILY [facility] Administration Docusate Sodium 300 mg 11/29/17 22:00 12/04/17 22:23 Colace - PO Not Given HS [facility] Donepezil HCl 10 mg 11/29/17 10:00 12/05/17 09:43 Aricept - PO 10 mg DAILY [facility] Administration Dorzolamide HCl 1 drop 11/29/17 06:00 12/05/17 06:15 Trusopt 2% OU 1 drop TID [facility] Administration Ferrous Sulfate 325 mg 11/29/17 10:00 12/05/17 09:43 Feosol - PO 325 mg BID [facility] Administration Folic Acid 1 mg 11/29/17 10:00 12/05/17 09:43 Folic Acid - PO 1 mg DAILY [facility] Administration Dextrose 1,000 mls @ 100 mls/hr 12/04/17 15:27 12/04/17 19:02 D5w - IV Not Given ASDIR [facility] Sodium Chloride 1,000 mls @ 83 mls/hr 12/05/17 11:45 1/2 Normal Saline IV ASDIR [facility] Insulin Aspart 1 vial 11/29/17 07:00 12/05/17 06:13 Novolog Vial Sliding Scale - SQ 3 units TIDAC [facility] Administration Protocol Insulin Aspart 1 vial 11/29/17 22:00 12/04/17 22:35 Novolog Vial Sliding Scale - SQ 4 units HS [facility] Administration Protocol Insulin Detemir 10 units 11/29/17 22:00 12/04/17 22:35 Levemir Vial SQ 10 units HS [facility] Administration Latanoprost 1 drop 11/29/17 22:00 12/04/17 22:26 Xalatan 0.005% Eye Drops - OU 1 drop HS [facility] Administration Pilocarpine HCl 1 drop 11/29/17 10:00 12/05/17 09:43 Pilostat 1% - OU 1 drop QID [facility] Administration Impression 1. CKD stage 4 2. anemia 3. change in mental status 4. hypernatremia 5. dehydration 6. Parkinson's disease 7. Depression 8. hyperkalemia Plan - will restart d5w, unclear why it was not given - anemia workup in progress - repeat labs in am - may need to start EPO - renal diet - abx per ID - will follow
[2017-12-05] MEDS ORDERED: DEXTROSE 5%-WATER - 1,000 ML IV SCH (12:15)
[2017-12-05] MEDS: ACETAMINOPHEN 325 MG TABLET (FP) PO PRN (12:22)
--- NOTE | 2017-12-05 12:31 | PN ---
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, ENERGY CONTROL OFFICER - Note 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: Selected Entries 12/04/17 12/04/17 12/04/17 02:00 05:55 12:26 Breakfast 50% Lunch Supper Temperature 99.2 F 99.3 F 12/04/17 12/04/17 12/04/17 14:00 15:00 15:04 Breakfast Lunch 100% Supper Temperature 98.3 F 100.1 F H 12/04/17 12/04/17 12/04/17 18:00 22:00 22:58 Breakfast Lunch Supper 75% Temperature 99.9 F H 98.7 F 12/05/17 12/05/17 03:17 06:00 Breakfast Lunch Supper Temperature 97.8 F 98.5 F Laboratory Tests 12/05/17 07:36 WBC 8.9 pt vocalizing more today(ahhhhhhh!) pt coughing with breakfast. rectal temp 100.1 at 12:30pm. Swallowing reassessed with nursing. UE's and neck quite stiff, head slightly extended. Unable to coordinate liquids from a cup with anterior spillage due to open mouth posture. Responsive cough with nectar thick liquid noted from spoon, cup,straw. This is new; not noted since admission. Suspect intermittent aspiration, likely sec to spillage over BOT, into airway before swallow is triggered. Pt readily opens mouth for puree and is eating well. Monitor for sufficient PO intake. Defer PEG? REC: Dys puree,honey thick liquids on tsp, Ensure pudding,magic cup d/c ensure compact and nectar thick liquids Sit pt up to 90 degrees, head flexed as possible tap lower lip with spoon to elicit mouth opening, gently depress tongue with spoon,wait for swallow reflex befiore next trial.
[2017-12-05 19:29] LABS: ANION GAP 9 (8-16); BLOOD UREA NITROGEN 87 mg/dL (7-18); CALCIUM 8.2 mg/dL (8.5-10.1); CHLORIDE 109 mmol/L (98-107); CO2 26 mmol/L (21-32); POTASSIUM 4.9 mmol/L (3.5-5.1); SODIUM 144 mmol/L (136-145)
[2017-12-05 19:33] LABS: CREATININE 3.5 mg/dL (0.55-1.02)
[2017-12-05 20:19] LABS: GLUCOSE,RANDOM 478 mg/dL (74-106)
[2017-12-05] MEDS ORDERED: INSULIN (NOVOLOG) ASPART 100 UNITS/ML 10ML VIAL SQ ONE (20:42)
[2017-12-05] MEDS: DOCUSATE SODIUM 100 MG CAPSULE (FP) PO SCH (22:31)
[2017-12-05] MEDS: ATORVASTATIN CA 10 MG TABLET (FP) PO SCH (22:31)
[2017-12-05] MEDS: INSULIN DETEMIR 100 UNITS/ML MDV SQ SCH (22:33)
[2017-12-05] MEDS: LATANOPROST 0.005% OPHTH SOLN 2.5ML BOTTLE OU SCH (22:35)
[2017-12-06] MEDS: CARBIDOPA/LEVODOPA 25/100 TABLET (FP) PO SCH ×3 (05:44→21:32)
[2017-12-06] MEDS: BRIMONIDINE TARTRATE 0.1% OPHTHALMIC 5 ML BOTTLE OU SCH ×3 (05:45→21:59)
[2017-12-06] MEDS: DORZOLAMIDE 2% HCL OPHTHALMIC SOLUTION 10 ML BOTTLE OU SCH ×3 (05:53→22:01)
--- NOTE | 2017-12-06 07:51 | PN ---
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, Physician History of Present Illness: IN BED LETHARGIC VEST IN PLACE FOR SAFETY - Current Medication List Current Medications: Active Medications Acetaminophen (Tylenol -) 650 mg PO Q6H PRN PRN Reason: FEVER Last Admin: 12/05/17 12:22 Dose: 650 mg Amlodipine Besylate (Norvasc -) 2.5 mg PO DAILY [facility] Last Admin: 12/05/17 09:43 Dose: 2.5 mg Aspirin (Ecotrin -) 81 mg PO DAILY [facility] Last Admin: 12/05/17 09:43 Dose: 81 mg Atorvastatin Calcium (Lipitor -) 10 mg PO HS [facility] Last Admin: 12/05/17 22:31 Dose: 10 mg Brimonidine Tartrate (Alphagan P 0.1% -) 1 drop OU TID [facility] Last Admin: 12/06/17 05:45 Dose: 1 drop Calcium Carbonate/Cholecalciferol (Os-Isacc 500+D -) 1 tab PO DAILY [facility] Last Admin: 12/05/17 09:43 Dose: 1 tab Carbidopa/Levodopa (Sinemet 25/100 -) 1 each PO TID [facility] Last Admin: 12/06/17 05:44 Dose: 1 each Citalopram Hydrobromide (Celexa -) 10 mg PO DAILY [facility] Last Admin: 12/05/17 09:43 Dose: 10 mg Cyanocobalamin (Vitamin B12 -) 1,000 mcg PO DAILY [facility] Last Admin: 12/05/17 09:43 Dose: 1,000 mcg Docusate Sodium (Colace -) 300 mg PO [facility] Last Admin: 12/05/17 22:31 Dose: 300 mg Donepezil HCl (Aricept -) 10 mg PO DAILY [facility] Last Admin: 12/05/17 09:43 Dose: 10 mg Dorzolamide HCl (Trusopt 2%) 1 drop OU TID [facility] Last Admin: 12/06/17 05:53 Dose: 1 drop Ferrous Sulfate (Feosol -) 325 mg PO BID [facility] Last Admin: 12/05/17 22:41 Dose: 325 mg Folic Acid (Folic Acid -) 1 mg PO DAILY [facility] Last Admin: 12/05/17 09:43 Dose: 1 mg Sodium Chloride (1/2 Normal Saline) 1,000 mls @ 50 mls/hr IV ASDIR [facility] Last Admin: 12/05/17 21:00 Dose: 50 mls/hr Insulin Aspart (Novolog Vial Sliding Scale -) 1 vial SQ TIDAC [facility] PRN Reason: Protocol Last Admin: 12/05/17 17:43 Dose: 10 units Insulin Aspart (Novolog Vial Sliding Scale -) 1 vial SQ HS [facility] PRN Reason: Protocol Last Admin: 12/05/17 22:32 Dose: 6 units Insulin Detemir (Levemir Vial) 10 units SQ HS [facility] Last Admin: 12/05/17 22:33 Dose: 10 units Latanoprost (Xalatan 0.005% Eye Drops -) 1 drop OU HS [facility] Last Admin: 12/05/17 22:35 Dose: 1 drop Pilocarpine HCl (Pilostat 1% -) 1 drop OU QID [facility] Last Admin: 12/05/17 22:35 Dose: 1 drop - Objective Vital Signs: Vital Signs Temperature 99.1 F 12/06/17 05:42 Pulse Rate 96 H 12/06/17 05:42 Respiratory Rate 18 12/06/17 05:42 Blood Pressure 145/79 12/06/17 05:42 O2 Sat by Pulse Oximetry (%) 96 12/05/17 21:00 Cardiovascular: Yes: S1, S2 Respiratory: Yes: Regular, CTA Bilaterally Gastrointestinal: Yes: Normal Bowel Sounds, Soft Labs: CBC, BMP 12/05/17 07:36 INR, PTT INR 0.96 (0.82-1.09) 11/28/17 12:44 Problem List - Problems (1) BING (acute kidney injury) Assessment/Plan: IVF MONITOR LABS RENAL CONSULT Code(s): N17.9 - ACUTE KIDNEY FAILURE, UNSPECIFIED (2) Altered mental status Assessment/Plan: MAYBE TOXI METABOLIC HOLD PSYCHOTROPICS NEURO Code(s): R41.82 - ALTERED MENTAL STATUS, UNSPECIFIED Qualifiers: Altered mental status type: unspecified Qualified Code(s): R41.82 - Altered mental status, unspecified (3) Anemia Assessment/Plan: MUTIFACTORIAL WORK UP ORDERED TRANSFUSE 2 UNITS LASIX POST TRANSFUSION Code(s): D64.9 - ANEMIA, UNSPECIFIED Qualifiers: Anemia type: unspecified type Qualified Code(s): D64.9 - Anemia, unspecified (4) Elevated troponin Assessment/Plan: Laboratory Tests 11/30/17 06:50 Troponin I 0.17 H monitor Code(s): R74.8 - ABNORMAL LEVELS OF OTHER SERUM ENZYMES
[2017-12-06 08:14] LABS: CALCIUM 8.3 mg/dL (8.5-10.1); CHLORIDE 113 mmol/L (98-107); POTASSIUM 4.9 mmol/L (3.5-5.1); SODIUM 148 mmol/L (136-145)
[2017-12-06 08:18] LABS: ANION GAP 7 (8-16); BLOOD UREA NITROGEN 87 mg/dL (7-18); CO2 28 mmol/L (21-32); CREATININE 3.4 mg/dL (0.55-1.02); GLUCOSE,RANDOM 105 mg/dL (74-106)
[2017-12-06 08:58] LABS: BASO % 0.3 % (0-2.0); EOS % 1.3 % (0-4.5); HEMOGLOBIN 9.7 GM/dL (10.7-15.3); LYMPH % 8.4 % (8-40); MCH 30.2 pg (25.7-33.7); MCHC 32.4 g/dl (32.0-36.0); MEAN CELL VOLUME 93.2 fl (80-96); MEAN PLT VOLUME 7.7 fl (7.5-11.1); MONO % 7.8 % (3.8-10.2); NEUT % 82.2 % (42.8-82.8); PLATELET COUNT 158 K/MM3 (134-434); RBC 3.22 M/mm3 (3.60-5.2); RDW 15.2 % (11.6-15.6); WHITE BLOOD COUNT 8.3 K/mm3 (4.0-10.0)
[2017-12-06] MEDS: FERROUS SO4 325 MG TABLET (FP) PO SCH ×2 (09:44→21:33)
[2017-12-06] MEDS: CITALOPRAM HYDROBROMIDE 10 MG TABLET (FP) PO SCH (09:44)
[2017-12-06] MEDS: amLODIPine BESYLATE 2.5 MG TABLET (FP) PO SCH (09:44)
[2017-12-06] MEDS: DONEPEZIL HCL 10 MG TABLET (FP) PO SCH (09:44)
[2017-12-06] MEDS: CALCIUM 500MG/VIT-D 200 UNITS COMBO TABLET (FP) PO SCH (09:44)
[2017-12-06] MEDS: ASPIRIN COATED 81 MG TABLET.EC PO SCH (09:44)
[2017-12-06] MEDS: CYANOCOBALAMIN 1,000 MCG TABLET (FP) PO SCH (09:44)
[2017-12-06] MEDS: FOLIC ACID 1 MG TABLET (FP) PO SCH (09:44)
--- NOTE | 2017-12-06 09:46 | PN ---
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 (short form) - Note 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: Spoke with pt's friend who is a secondary HCP. Pt's brother is the primary HCP. They will get back to us with their decision re PEG should the pt need one. Problem List - Problems (1) BING (acute kidney injury) Code(s): N17.9 - ACUTE KIDNEY FAILURE, UNSPECIFIED (2) Altered mental status Code(s): R41.82 - ALTERED MENTAL STATUS, UNSPECIFIED Qualifiers: Altered mental status type: unspecified Qualified Code(s): R41.82 - Altered mental status, unspecified (3) Anemia Code(s): D64.9 - ANEMIA, UNSPECIFIED Qualifiers: Anemia type: unspecified type Qualified Code(s): D64.9 - Anemia, unspecified (4) Elevated troponin Code(s): R74.8 - ABNORMAL LEVELS OF OTHER SERUM ENZYMES (5) Hypernatremia Code(s): E87.0 - HYPEROSMOLALITY AND HYPERNATREMIA (6) UTI (urinary tract infection) Code(s): N39.0 - URINARY TRACT INFECTION, SITE NOT SPECIFIED
[2017-12-06] MEDS: PILOCARPINE 1% OPHTHALMIC SOLUTION 15 ML BOTTLE OU SCH ×4 (09:48→22:00)
--- NOTE | 2017-12-06 09:54 | PN ---
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 (short form) - Note 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: Neurology History of Present Illness Patient is a 66-year-old female past medical history of anemia, stage IV CAD, dementia, presents to the emergency department today from [facility] with the chief complaint of altered mental status. History per notes as patient is nonverbal. She states that the patient is usually A&Ox3, verbal calling out and aggressive. During my evaluation has been nonverbal, not following commands. CT head was repeated and reviewed and did not show acute changes. Being managed for alerted mental status, toxic metabolic encephalopathy. Has underlying dementia, on Donepezil. Altered mental status, ID following, getting treatment for UTI, on Ceftriaxone. Sinemet restarted. Remains somnolent this AM, wakes up and groans. Getting ongoing medical optimization. Plan for [facility] when able. Active Medications Acetaminophen (Tylenol -) 650 mg PO Q6H PRN PRN Reason: FEVER Last Admin: 12/05/17 12:22 Dose: 650 mg Amlodipine Besylate (Norvasc -) 2.5 mg PO DAILY [facility] Last Admin: 12/06/17 09:44 Dose: 2.5 mg Aspirin (Ecotrin -) 81 mg PO DAILY [facility] Last Admin: 12/06/17 09:44 Dose: 81 mg Atorvastatin Calcium (Lipitor -) 10 mg PO [facility] Last Admin: 12/05/17 22:31 Dose: 10 mg Brimonidine Tartrate (Alphagan P 0.1% -) 1 drop OU TID [facility] Last Admin: 12/06/17 05:45 Dose: 1 drop Calcium Carbonate/Cholecalciferol (Os-Isacc 500+D -) 1 tab PO DAILY [facility] Last Admin: 12/06/17 09:44 Dose: 1 tab Carbidopa/Levodopa (Sinemet 25/100 -) 1 each PO TID [facility] Last Admin: 12/06/17 05:44 Dose: 1 each Citalopram Hydrobromide (Celexa -) 10 mg PO DAILY [facility] Last Admin: 12/06/17 09:44 Dose: 10 mg Cyanocobalamin (Vitamin B12 -) 1,000 mcg PO DAILY [facility] Last Admin: 12/06/17 09:44 Dose: 1,000 mcg Docusate Sodium (Colace -) 300 mg PO [facility] Last Admin: 12/05/17 22:31 Dose: 300 mg Donepezil HCl (Aricept -) 10 mg PO DAILY [facility] Last Admin: 12/06/17 09:44 Dose: 10 mg Dorzolamide HCl (Trusopt 2%) 1 drop OU TID [facility] Last Admin: 12/06/17 05:53 Dose: 1 drop Ferrous Sulfate (Feosol -) 325 mg PO BID [facility] Last Admin: 12/06/17 09:44 Dose: 325 mg Folic Acid (Folic Acid -) 1 mg PO DAILY [facility] Last Admin: 12/06/17 09:44 Dose: 1 mg Sodium Chloride (1/2 Normal Saline) 1,000 mls @ 50 mls/hr IV ASDIR [facility] Last Admin: 12/05/17 21:00 Dose: 50 mls/hr Insulin Aspart (Novolog Vial Sliding Scale -) 1 vial SQ TIDAC [facility] PRN Reason: Protocol Last Admin: 12/05/17 17:43 Dose: 10 units Insulin Aspart (Novolog Vial Sliding Scale -) 1 vial SQ HS [facility] PRN Reason: Protocol Last Admin: 12/05/17 22:32 Dose: 6 units Insulin Detemir (Levemir Vial) 10 units SQ HS [facility] Last Admin: 12/05/17 22:33 Dose: 10 units Latanoprost (Xalatan 0.005% Eye Drops -) 1 drop OU HS [facility] Last Admin: 12/05/17 22:35 Dose: 1 drop Pilocarpine HCl (Pilostat 1% -) 1 drop OU QID [facility] Last Admin: 12/06/17 09:48 Dose: 1 drop *Physical Exam Vital Signs Temperature 99.1 F 12/06/17 05:42 Pulse Rate 96 H 12/06/17 05:42 Respiratory Rate 18 12/06/17 05:42 Blood Pressure 145/79 12/06/17 05:42 O2 Sat by Pulse Oximetry (%) 96 12/05/17 21:00 GENERAL: Well developed, well nourished. Awake and alert to name only. No acute distress. Reaching out of exam bed. HEENT: Normocephalic, atraumatic. PERRLA, EOMI. No conjunctival pallor. Sclera are non- icteric. Moist mucous membranes. Oropharynx is clear. NECK: Supple. Full ROM. No JVD. Carotid pulses 2+ and symmetric, without bruits. No thyromegaly. No lymphadenopathy. CARDIOVASCULAR: Regular rate and rhythm. Systolic murmur II/ along the R and L 2nd/3rd intercostal space . No rubs, or gallops. Distal pulses are 2+ and symmetric. PULMONARY: No evidence of respiratory distress. Lungs clear to auscultation bilaterally. No wheezing, rales or rhonchi. ABDOMINAL: Soft. Non-tender. Non-distended. No rebound or guarding. No organomegaly. Normoactive bowel sounds. MUSCULOSKELETAL Normal range of motion at all joints. No bony deformities or tenderness. No CVA tenderness. EXTREMITIES: No cyanosis. No clubbing. No edema. No calf tenderness. SKIN: Warm and dry. Normal capillary refill. No rashes. No jaundice. NEUROLOGICAL: Unable to perform a neuro exam. Pt. is non-verbal, not responding to commands and aggressive. Toes are down-going bilaterally. Gait is not observed. PSYCHIATRIC: Cooperative. Good eye contact. Appropriate mood and affect. CBCD WBC 8.3 K/mm3 (4.0-10.0) 12/06/17 07:15 RBC 3.22 M/mm3 (3.60-5.2) L 12/06/17 07:15 Hgb 9.7 GM/dL (10.7-15.3) L D 12/06/17 07:15 Hct 30.0 % (32.4-45.2) L 12/06/17 07:15 MCV 93.2 fl (80-96) 12/06/17 07:15 MCHC 32.4 g/dl (32.0-36.0) 12/06/17 07:15 RDW 15.2 % (11.6-15.6) 12/06/17 07:15 Plt Count 158 K/MM3 (134-434) 12/06/17 07:15 MPV 7.7 fl (7.5-11.1) 12/06/17 07:15 CMP Sodium 148 mmol/L (136-145) H 12/06/17 07:15 Potassium 4.9 mmol/L (3.5-5.1) 12/06/17 07:15 Chloride 113 mmol/L (98-107) H 12/06/17 07:15 Carbon Dioxide 28 mmol/L (21-32) 12/06/17 07:15 Anion Gap 7 (8-16) L 12/06/17 07:15 BUN 87 mg/dL (7-18) H 12/06/17 07:15 Creatinine 3.4 mg/dL (0.55-1.02) H 12/06/17 07:15 Creat Clearance w eGFR 12.15 (>60) 12/04/17 06:30 Calcium 8.3 mg/dL (8.5-10.1) L 12/06/17 07:15 Total Bilirubin 0.4 mg/dL (0.2-1.0) D 12/04/17 06:30 AST 32 U/L (15-37) 12/04/17 06:30 ALT 16 U/L (12-78) 12/04/17 06:30 Alkaline Phosphatase 62 U/L (45-117) 12/04/17 06:30 Total Protein 5.4 g/dl (6.4-8.2) L 12/04/17 06:30 Albumin 1.9 g/dl (3.4-5.0) L 12/04/17 06:30 CT head reviewed Medical Decision Making 66-year-old female past medical history of anemia, stage IV CAD, dementia, presents to the emergency department today from [facility] with the chief complaint of altered mental status. History per notes as patient is nonverbal. She states that the patient is usually A&Ox3, verbal calling out and aggressive. During my evaluation has been nonverbal, restless. CT head reviewed and did not show acute changes. For underlying dementia, continue on Donepezil. Hemoglobin improved s/p transfusion ID following for UTI Ceftriaxone course completed Continue medical optimization Nephrology follow up regarding hypernatermia and CKD Started sinemet again Continue medical optimization For d/c to [facility] when able
[2017-12-06] MEDS: INSULIN SLIDING SCALE (NOVOLOG) 1 VIAL SQ SCH ×4 (11:22→21:35)
--- NOTE | 2017-12-06 12:44 | PN ---
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 Dys puree,honey thick liquids on tsp, Ensure pudding,magic cup d/c ensure compact and nectar thick liquids Sit pt up to 90 degrees, head flexed as possible tap lower lip with spoon to elicit mouth opening, gently depress tongue with spoon,wait for swallow reflex befiore next trial.
--- NOTE | 2017-12-06 13:25 | PN ---
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 (short form) - Note 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: HCP (friend) consented to PEG should the patient need it. Problem List - Problems (1) BING (acute kidney injury) Code(s): N17.9 - ACUTE KIDNEY FAILURE, UNSPECIFIED (2) Altered mental status Code(s): R41.82 - ALTERED MENTAL STATUS, UNSPECIFIED Qualifiers: Altered mental status type: unspecified Qualified Code(s): R41.82 - Altered mental status, unspecified (3) Anemia Code(s): D64.9 - ANEMIA, UNSPECIFIED Qualifiers: Anemia type: unspecified type Qualified Code(s): D64.9 - Anemia, unspecified (4) Elevated troponin Code(s): R74.8 - ABNORMAL LEVELS OF OTHER SERUM ENZYMES (5) Hypernatremia Code(s): E87.0 - HYPEROSMOLALITY AND HYPERNATREMIA (6) UTI (urinary tract infection) Code(s): N39.0 - URINARY TRACT INFECTION, SITE NOT SPECIFIED
--- NOTE | 2017-12-06 14:19 | PN ---
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, Physician History of Present Illness: Pt seen and examined at bedside. No great change in clinical status. - Current Medication List Current Medications: Active Medications Acetaminophen (Tylenol -) 650 mg PO Q6H PRN PRN Reason: FEVER Last Admin: 12/05/17 12:22 Dose: 650 mg Amlodipine Besylate (Norvasc -) 2.5 mg PO DAILY [facility] Last Admin: 12/06/17 09:44 Dose: 2.5 mg Aspirin (Ecotrin -) 81 mg PO DAILY [facility] Last Admin: 12/06/17 09:44 Dose: 81 mg Atorvastatin Calcium (Lipitor -) 10 mg PO HS [facility] Last Admin: 12/05/17 22:31 Dose: 10 mg Brimonidine Tartrate (Alphagan P 0.1% -) 1 drop OU TID [facility] Last Admin: 12/06/17 13:38 Dose: 1 drop Calcium Carbonate/Cholecalciferol (Os-Isacc 500+D -) 1 tab PO DAILY [facility] Last Admin: 12/06/17 09:44 Dose: 1 tab Carbidopa/Levodopa (Sinemet 25/100 -) 1 each PO TID [facility] Last Admin: 12/06/17 13:38 Dose: 1 each Citalopram Hydrobromide (Celexa -) 10 mg PO DAILY [facility] Last Admin: 12/06/17 09:44 Dose: 10 mg Cyanocobalamin (Vitamin B12 -) 1,000 mcg PO DAILY [facility] Last Admin: 12/06/17 09:44 Dose: 1,000 mcg Docusate Sodium (Colace -) 300 mg PO [facility] Last Admin: 12/05/17 22:31 Dose: 300 mg Donepezil HCl (Aricept -) 10 mg PO DAILY [facility] Last Admin: 12/06/17 09:44 Dose: 10 mg Dorzolamide HCl (Trusopt 2%) 1 drop OU TID [facility] Last Admin: 12/06/17 13:38 Dose: 1 drop Ferrous Sulfate (Feosol -) 325 mg PO BID [facility] Last Admin: 12/06/17 09:44 Dose: 325 mg Folic Acid (Folic Acid -) 1 mg PO DAILY [facility] Last Admin: 12/06/17 09:44 Dose: 1 mg Sodium Chloride (1/2 Normal Saline) 1,000 mls @ 50 mls/hr IV ASDIR [facility] Last Admin: 12/05/17 21:00 Dose: 50 mls/hr Insulin Aspart (Novolog Vial Sliding Scale -) 1 vial SQ TIDAC [facility] PRN Reason: Protocol Last Admin: 12/06/17 11:22 Dose: Not Given Insulin Aspart (Novolog Vial Sliding Scale -) 1 vial SQ HS [facility] PRN Reason: Protocol Last Admin: 12/05/17 22:32 Dose: 6 units Insulin Detemir (Levemir Vial) 10 units SQ HS [facility] Last Admin: 12/05/17 22:33 Dose: 10 units Latanoprost (Xalatan 0.005% Eye Drops -) 1 drop OU HS [facility] Last Admin: 12/05/17 22:35 Dose: 1 drop Pilocarpine HCl (Pilostat 1% -) 1 drop OU QID [facility] Last Admin: 12/06/17 13:38 Dose: 1 drop - Objective Vital Signs: Vital Signs Temperature 98.8 F 12/06/17 10:00 Pulse Rate 96 H 12/06/17 10:00 Respiratory Rate 18 12/06/17 10:00 Blood Pressure 143/72 12/06/17 10:00 O2 Sat by Pulse Oximetry (%) 96 12/06/17 09:00 Constitutional: Yes: No Distress Neck: Yes: Supple Cardiovascular: Yes: S1, S2 Respiratory: Yes: CTA Bilaterally Gastrointestinal: Yes: Soft Genitourinary: Yes: Incontinence Musculoskeletal: Yes: Muscle Weakness Edema: No Neurological: Yes: Lethargy Labs: CBC, BMP 12/06/17 07:15 12/06/17 07:15 INR, PTT INR 0.96 (0.82-1.09) 11/28/17 12:44 Problem List - Problems (1) BING (acute kidney injury) Code(s): N17.9 - ACUTE KIDNEY FAILURE, UNSPECIFIED (2) Altered mental status Code(s): R41.82 - ALTERED MENTAL STATUS, UNSPECIFIED Qualifiers: Altered mental status type: unspecified Qualified Code(s): R41.82 - Altered mental status, unspecified (3) Hypernatremia Code(s): E87.0 - HYPEROSMOLALITY AND HYPERNATREMIA Assessment/Plan Current Medications Generic Name Dose Route Start Last Admin Trade Name Freq PRN Reason Stop Dose Admin Acetaminophen 650 mg 11/29/17 13:50 01/24/18 12:22 Tylenol - PO 650 mg Q6H PRN Administration FEVER Amlodipine Besylate 2.5 mg 11/30/17 20:00 12/06/17 09:44 Norvasc - PO 2.5 mg DAILY [facility] Administration Aspirin 81 mg 11/29/17 10:00 12/06/17 09:44 Ecotrin - PO 81 mg DAILY [facility] Administration Atorvastatin Calcium 10 mg 11/29/17 22:00 12/05/17 22:31 Lipitor - PO 10 mg HS [facility] Administration Brimonidine Tartrate 1 drop 11/29/17 06:00 12/06/17 13:38 Alphagan P 0.1% - OU 1 drop TID [facility] Administration Calcium Carbonate/Cholecalciferol 1 tab 11/29/17 10:00 12/06/17 09:44 Os-Isacc 500+D - PO 1 tab DAILY [facility] Administration Carbidopa/Levodopa 1 each 12/04/17 14:00 12/06/17 13:38 Sinemet 25/100 - PO 1 each TID [facility] Administration Citalopram Hydrobromide 10 mg 11/29/17 10:00 12/06/17 09:44 Celexa - PO 10 mg DAILY [facility] Administration Cyanocobalamin 1,000 mcg 11/29/17 10:00 12/06/17 09:44 Vitamin B12 - PO 1,000 mcg DAILY [facility] Administration Docusate Sodium 300 mg 11/29/17 22:00 12/05/17 22:31 Colace - PO 300 mg HS [facility] Administration Donepezil HCl 10 mg 11/29/17 10:00 12/06/17 09:44 Aricept - PO 10 mg DAILY [facility] Administration Dorzolamide HCl 1 drop 11/29/17 06:00 12/06/17 13:38 Trusopt 2% OU 1 drop TID [facility] Administration Ferrous Sulfate 325 mg 11/29/17 10:00 12/06/17 09:44 Feosol - PO 325 mg BID [facility] Administration Folic Acid 1 mg 11/29/17 10:00 12/06/17 09:44 Folic Acid - PO 1 mg DAILY [facility] Administration Sodium Chloride 1,000 mls @ 50 mls/hr 12/05/17 21:00 12/05/17 21:00 1/2 Normal Saline IV 50 mls/hr ASDIR [facility] Administration Insulin Aspart 1 vial 11/29/17 07:00 12/06/17 11:22 Novolog Vial Sliding Scale - SQ Not Given TIDAC [facility] Protocol Insulin Aspart 1 vial 11/29/17 22:00 12/05/17 22:32 Novolog Vial Sliding Scale - SQ 6 units HS [facility] Administration Protocol Insulin Detemir 10 units 11/29/17 22:00 12/05/17 22:33 Levemir Vial SQ 10 units HS [facility] Administration Latanoprost 1 drop 11/29/17 22:00 12/05/17 22:35 Xalatan 0.005% Eye Drops - OU 1 drop HS [facility] Administration Pilocarpine HCl 1 drop 11/29/17 10:00 12/06/17 13:38 Pilostat 1% - OU 1 drop QID [facility] Administration Impression 1. CKD stage 4 2. anemia 3. change in mental status 4. hypernatremia 5. dehydration 6. Parkinson's disease 7. Depression 8. hyperkalemia Plan - change fluids back to d5w and decrease rate - pts PO intake is poor - monitor renal function - anemia workup in progress - repeat labs in am - renal diet - abx per ID - will follow
[2017-12-06] MEDS: DEXTROSE 5%-WATER - 1,000 ML IV SCH (15:16)
[2017-12-06] MEDS: DOCUSATE SODIUM 100 MG CAPSULE (FP) PO SCH (21:33)
[2017-12-06] MEDS: INSULIN DETEMIR 100 UNITS/ML MDV SQ SCH (21:34)
[2017-12-06] MEDS: LATANOPROST 0.005% OPHTH SOLN 2.5ML BOTTLE OU SCH (22:02)
[2017-12-06] MEDS: ATORVASTATIN CA 10 MG TABLET (FP) PO SCH (22:03)
[2017-12-07] MEDS: BRIMONIDINE TARTRATE 0.1% OPHTHALMIC 5 ML BOTTLE OU SCH ×3 (05:44→23:46)
[2017-12-07] MEDS: CARBIDOPA/LEVODOPA 25/100 TABLET (FP) PO SCH ×3 (05:45→22:52)
[2017-12-07] MEDS: DORZOLAMIDE 2% HCL OPHTHALMIC SOLUTION 10 ML BOTTLE OU SCH ×3 (05:47→23:47)
[2017-12-07] MEDS: INSULIN SLIDING SCALE (NOVOLOG) 1 VIAL SQ SCH ×4 (06:17→22:58)
[2017-12-07 08:38] LABS: CHLORIDE 110 mmol/L (98-107); POTASSIUM 5.3 mmol/L (3.5-5.1); SODIUM 144 mmol/L (136-145)
[2017-12-07 08:54] LABS: ANION GAP 10 (8-16); BLOOD UREA NITROGEN 87 mg/dL (7-18); CALCIUM 8.4 mg/dL (8.5-10.1); CO2 24 mmol/L (21-32); CREATININE 3.5 mg/dL (0.55-1.02); GLUCOSE,RANDOM 167 mg/dL (74-106)
--- NOTE | 2017-12-07 09:00 | PN ---
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, Physician History of Present Illness: IN BED LETHARGIC VEST IN PLACE FOR SAFETY - Current Medication List Current Medications: Active Medications Acetaminophen (Tylenol -) 650 mg PO Q6H PRN PRN Reason: FEVER Last Admin: 12/05/17 12:22 Dose: 650 mg Amlodipine Besylate (Norvasc -) 2.5 mg PO DAILY [facility] Last Admin: 12/06/17 09:44 Dose: 2.5 mg Aspirin (Ecotrin -) 81 mg PO DAILY [facility] Last Admin: 12/06/17 09:44 Dose: 81 mg Atorvastatin Calcium (Lipitor -) 10 mg PO HS [facility] Last Admin: 12/06/17 22:03 Dose: 10 mg Brimonidine Tartrate (Alphagan P 0.1% -) 1 drop OU TID [facility] Last Admin: 12/07/17 05:44 Dose: 1 drop Calcium Carbonate/Cholecalciferol (Os-Isacc 500+D -) 1 tab PO DAILY [facility] Last Admin: 12/06/17 09:44 Dose: 1 tab Carbidopa/Levodopa (Sinemet 25/100 -) 1 each PO TID [facility] Last Admin: 12/07/17 05:45 Dose: 1 each Citalopram Hydrobromide (Celexa -) 10 mg PO DAILY [facility] Last Admin: 12/06/17 09:44 Dose: 10 mg Cyanocobalamin (Vitamin B12 -) 1,000 mcg PO DAILY [facility] Last Admin: 12/06/17 09:44 Dose: 1,000 mcg Docusate Sodium (Colace -) 300 mg PO [facility] Last Admin: 12/06/17 21:33 Dose: 300 mg Donepezil HCl (Aricept -) 10 mg PO DAILY [facility] Last Admin: 12/06/17 09:44 Dose: 10 mg Dorzolamide HCl (Trusopt 2%) 1 drop OU TID [facility] Last Admin: 12/07/17 05:47 Dose: 1 drop Ferrous Sulfate (Feosol -) 325 mg PO BID [facility] Last Admin: 12/06/17 21:33 Dose: 325 mg Folic Acid (Folic Acid -) 1 mg PO DAILY [facility] Last Admin: 12/06/17 09:44 Dose: 1 mg Dextrose (D5w -) 1,000 mls @ 65 mls/hr IV ASDIR [facility] Last Admin: 12/06/17 15:16 Dose: 65 mls/hr Insulin Aspart (Novolog Vial Sliding Scale -) 1 vial SQ TIDAC [facility] PRN Reason: Protocol Last Admin: 12/07/17 06:17 Dose: 2 units Insulin Aspart (Novolog Vial Sliding Scale -) 1 vial SQ HS [facility] PRN Reason: Protocol Last Admin: 12/06/17 21:35 Dose: 3 units Insulin Detemir (Levemir Vial) 10 units SQ HS [facility] Last Admin: 12/06/17 21:34 Dose: 10 units Latanoprost (Xalatan 0.005% Eye Drops -) 1 drop OU HS [facility] Last Admin: 12/06/17 22:02 Dose: 1 drop Pilocarpine HCl (Pilostat 1% -) 1 drop OU QID [facility] Last Admin: 12/06/17 22:00 Dose: 1 drop - Objective Vital Signs: Vital Signs Temperature 99 F 12/07/17 05:28 Pulse Rate 75 12/07/17 05:28 Respiratory Rate 20 12/07/17 05:28 Blood Pressure 138/68 12/07/17 05:28 O2 Sat by Pulse Oximetry (%) 97 12/06/17 21:00 Cardiovascular: Yes: S1, S2 Respiratory: Yes: Regular, CTA Bilaterally Gastrointestinal: Yes: Normal Bowel Sounds, Soft Labs: INR, PTT INR 0.96 (0.82-1.09) 11/28/17 12:44 Problem List - Problems (1) BING (acute kidney injury) Code(s): N17.9 - ACUTE KIDNEY FAILURE, UNSPECIFIED (2) Altered mental status Code(s): R41.82 - ALTERED MENTAL STATUS, UNSPECIFIED Qualifiers: Altered mental status type: unspecified Qualified Code(s): R41.82 - Altered mental status, unspecified (3) Anemia Code(s): D64.9 - ANEMIA, UNSPECIFIED Qualifiers: Anemia type: unspecified type Qualified Code(s): D64.9 - Anemia, unspecified (4) Elevated troponin Code(s): R74.8 - ABNORMAL LEVELS OF OTHER SERUM ENZYMES Assessment/Plan - Problems (1) BING (acute kidney injury) Assessment/Plan: -seen by nephrology -chronic Code(s): N17.9 - ACUTE KIDNEY FAILURE, UNSPECIFIED (2) Altered mental status Assessment/Plan: -underlying dementia, exacerbated mental status 2/2 to acute infection Code(s): R41.82 - ALTERED MENTAL STATUS, UNSPECIFIED Qualifiers: Altered mental status type: unspecified Qualified Code(s): R41.82 - Altered mental status, unspecified (3) Anemia Assessment/Plan: -prbc given -monitor h/h -hematology consult -GI F/U--EGD Code(s): D64.9 - ANEMIA, UNSPECIFIED Qualifiers: Anemia type: unspecified type Qualified Code(s): D64.9 - Anemia, unspecified (4) Poor Oral Intake--Dehydration Assessment/Plan: needs peg to maintain hydration gi eval (5) Hypernatremia Assessment/Plan: -seen by nephrology -hypotonic fluids increased -repeat labs Code(s): E87.0 - HYPEROSMOLALITY AND HYPERNATREMIA (6) UTI (urinary tract infection) Assessment/Plan: -seen by ID -ESBL in the urine -isolation precautions -Off IV abx Code(s): N39.0 - URINARY TRACT INFECTION, SITE NOT SPECIFIED
[2017-12-07 09:02] LABS: BASO % 0.3 % (0-2.0); EOS % 0.5 % (0-4.5); HEMATOCRIT 32.3 % (32.4-45.2); HEMOGLOBIN 10.3 GM/dL (10.7-15.3); MCH 30.3 pg (25.7-33.7); MEAN CELL VOLUME 94.8 fl (80-96); MEAN PLT VOLUME 8.6 fl (7.5-11.1); MONO % 6.7 % (3.8-10.2); NEUT % 87.5 % (42.8-82.8); PLATELET COUNT 185 K/MM3 (134-434); RBC 3.41 M/mm3 (3.60-5.2); RDW 15.2 % (11.6-15.6); WHITE BLOOD COUNT 9.6 K/mm3 (4.0-10.0)
--- NOTE | 2017-12-07 09:34 | PN ---
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 (short form) - Note 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: Neurology History of Present Illness Patient is a 66-year-old female past medical history of anemia, stage IV CAD, dementia, presents to the emergency department today from [facility] with the chief complaint of altered mental status. History per notes as patient is nonverbal. She states that the patient is usually A&Ox3, verbal calling out and aggressive. During my evaluation has been nonverbal, not following commands. CT head was repeated and reviewed and did not show acute changes. Being managed for alerted mental status, toxic metabolic encephalopathy. Has underlying dementia, on Donepezil. Altered mental status, ID following, getting treatment for UTI, on Ceftriaxone. Sinemet restarted. Remains somnolent this AM, wakes up and groans, no significant improvement in mental status. Getting ongoing medical optimization. Plan for [facility] when able. Active Medications Acetaminophen (Tylenol -) 650 mg PO Q6H PRN PRN Reason: FEVER Last Admin: 12/05/17 12:22 Dose: 650 mg Amlodipine Besylate (Norvasc -) 2.5 mg PO DAILY [facility] Last Admin: 12/06/17 09:44 Dose: 2.5 mg Aspirin (Ecotrin -) 81 mg PO DAILY [facility] Last Admin: 12/06/17 09:44 Dose: 81 mg Atorvastatin Calcium (Lipitor -) 10 mg PO [facility] Last Admin: 12/06/17 22:03 Dose: 10 mg Brimonidine Tartrate (Alphagan P 0.1% -) 1 drop OU TID [facility] Last Admin: 12/07/17 05:44 Dose: 1 drop Calcium Carbonate/Cholecalciferol (Os-Isacc 500+D -) 1 tab PO DAILY [facility] Last Admin: 12/06/17 09:44 Dose: 1 tab Carbidopa/Levodopa (Sinemet 25/100 -) 1 each PO TID [facility] Last Admin: 12/07/17 05:45 Dose: 1 each Citalopram Hydrobromide (Celexa -) 10 mg PO DAILY [facility] Last Admin: 12/06/17 09:44 Dose: 10 mg Cyanocobalamin (Vitamin B12 -) 1,000 mcg PO DAILY [facility] Last Admin: 12/06/17 09:44 Dose: 1,000 mcg Docusate Sodium (Colace -) 300 mg PO [facility] Last Admin: 12/06/17 21:33 Dose: 300 mg Donepezil HCl (Aricept -) 10 mg PO DAILY [facility] Last Admin: 12/06/17 09:44 Dose: 10 mg Dorzolamide HCl (Trusopt 2%) 1 drop OU TID [facility] Last Admin: 12/07/17 05:47 Dose: 1 drop Ferrous Sulfate (Feosol -) 325 mg PO BID [facility] Last Admin: 12/06/17 21:33 Dose: 325 mg Folic Acid (Folic Acid -) 1 mg PO DAILY [facility] Last Admin: 12/06/17 09:44 Dose: 1 mg Dextrose (D5w -) 1,000 mls @ 65 mls/hr IV ASDIR [facility] Last Admin: 12/06/17 15:16 Dose: 65 mls/hr Insulin Aspart (Novolog Vial Sliding Scale -) 1 vial SQ TIDAC [facility] PRN Reason: Protocol Last Admin: 12/07/17 06:17 Dose: 2 units Insulin Aspart (Novolog Vial Sliding Scale -) 1 vial SQ HS [facility] PRN Reason: Protocol Last Admin: 12/06/17 21:35 Dose: 3 units Insulin Detemir (Levemir Vial) 10 units SQ HS [facility] Last Admin: 12/06/17 21:34 Dose: 10 units Latanoprost (Xalatan 0.005% Eye Drops -) 1 drop OU HS [facility] Last Admin: 12/06/17 22:02 Dose: 1 drop Pilocarpine HCl (Pilostat 1% -) 1 drop OU QID [facility] Last Admin: 12/06/17 22:00 Dose: 1 drop *Physical Exam Vital Signs Period Temp Pulse Resp BP Sys/Rose Pulse Ox Last 24 Hr 98.3 F-99.2 F 71-96 18-20 101-143/52-72 97 GENERAL: Well developed, well nourished. Awake and alert to name only. No acute distress. Reaching out of exam bed. HEENT: Normocephalic, atraumatic. PERRLA, EOMI. No conjunctival pallor. Sclera are non- icteric. Moist mucous membranes. Oropharynx is clear. NECK: Supple. Full ROM. No JVD. Carotid pulses 2+ and symmetric, without bruits. No thyromegaly. No lymphadenopathy. CARDIOVASCULAR: Regular rate and rhythm. Systolic murmur II/ along the R and L 2nd/3rd intercostal space . No rubs, or gallops. Distal pulses are 2+ and symmetric. PULMONARY: No evidence of respiratory distress. Lungs clear to auscultation bilaterally. No wheezing, rales or rhonchi. ABDOMINAL: Soft. Non-tender. Non-distended. No rebound or guarding. No organomegaly. Normoactive bowel sounds. MUSCULOSKELETAL Normal range of motion at all joints. No bony deformities or tenderness. No CVA tenderness. EXTREMITIES: No cyanosis. No clubbing. No edema. No calf tenderness. SKIN: Warm and dry. Normal capillary refill. No rashes. No jaundice. NEUROLOGICAL: Unable to perform a neuro exam. Pt. is non-verbal, not responding to commands. Gait was not observed. PSYCHIATRIC: Cooperative. Good eye contact. Appropriate mood and affect. CBCD WBC 9.6 K/mm3 (4.0-10.0) 12/07/17 06:45 RBC 3.41 M/mm3 (3.60-5.2) L 12/07/17 06:45 Hgb 10.3 GM/dL (10.7-15.3) L 12/07/17 06:45 Hct 32.3 % (32.4-45.2) L 12/07/17 06:45 MCV 94.8 fl (80-96) 12/07/17 06:45 MCHC 32.0 g/dl (32.0-36.0) 12/07/17 06:45 RDW 15.2 % (11.6-15.6) 12/07/17 06:45 Plt Count 185 K/MM3 (134-434) 12/07/17 06:45 MPV 8.6 fl (7.5-11.1) D 12/07/17 06:45 CMP Sodium 144 mmol/L (136-145) 12/07/17 06:45 Potassium 5.3 mmol/L (3.5-5.1) H 12/07/17 06:45 Chloride 110 mmol/L (98-107) H 12/07/17 06:45 Carbon Dioxide 24 mmol/L (21-32) 12/07/17 06:45 Anion Gap 10 (8-16) 12/07/17 06:45 BUN 87 mg/dL (7-18) H 12/07/17 06:45 Creatinine 3.5 mg/dL (0.55-1.02) H 12/07/17 06:45 Creat Clearance w eGFR 12.15 (>60) 12/04/17 06:30 Calcium 8.4 mg/dL (8.5-10.1) L 12/07/17 06:45 Total Bilirubin 0.4 mg/dL (0.2-1.0) D 12/04/17 06:30 AST 32 U/L (15-37) 12/04/17 06:30 ALT 16 U/L (12-78) 12/04/17 06:30 Alkaline Phosphatase 62 U/L (45-117) 12/04/17 06:30 Total Protein 5.4 g/dl (6.4-8.2) L 12/04/17 06:30 Albumin 1.9 g/dl (3.4-5.0) L 12/04/17 06:30 CT head reviewed Medical Decision Making 66-year-old female past medical history of anemia, stage IV CAD, dementia, presents to the emergency department today from [facility] with the chief complaint of altered mental status. History per notes as patient is nonverbal. She states that the patient is usually A&Ox3, verbal calling out and aggressive. During my evaluation has been nonverbal, restless. CT head reviewed and did not show acute changes. For underlying dementia, continue on Donepezil. Hemoglobin improved s/p transfusion ID following for UTI Ceftriaxone course completed Continue medical optimization Nephrology follow up regarding hypernatermia and CKD Started sinemet again Continue medical optimization
[2017-12-07] MEDS: amLODIPine BESYLATE 2.5 MG TABLET (FP) PO SCH (12:41)
[2017-12-07] MEDS: DONEPEZIL HCL 10 MG TABLET (FP) PO SCH (12:41)
[2017-12-07] MEDS: CITALOPRAM HYDROBROMIDE 10 MG TABLET (FP) PO SCH (12:41)
[2017-12-07] MEDS: CALCIUM 500MG/VIT-D 200 UNITS COMBO TABLET (FP) PO SCH (12:41)
[2017-12-07] MEDS: CYANOCOBALAMIN 1,000 MCG TABLET (FP) PO SCH (12:42)
[2017-12-07] MEDS: PILOCARPINE 1% OPHTHALMIC SOLUTION 15 ML BOTTLE OU SCH ×4 (12:42→23:45)
[2017-12-07] MEDS: ASPIRIN COATED 81 MG TABLET.EC PO SCH (12:42)
[2017-12-07] MEDS: FOLIC ACID 1 MG TABLET (FP) PO SCH (12:42)
[2017-12-07] MEDS: FERROUS SO4 325 MG TABLET (FP) PO SCH ×2 (12:42→22:52)
[2017-12-07] MEDS: DEXTROSE 5%-WATER - 1,000 ML IV SCH (15:10)
--- NOTE | 2017-12-07 16:13 | PN ---
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 (short form) - Note 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: Patient seen and examined non verbal. ROS limited events reviewed General: moaning Cor: RSR, No murmurs, No gallops Lungs: Clear to P&A Abd: Soft, Normal bowel sounds, No organomegaly Ext:No significant edema Last Vital Signs Temp Pulse Resp BP Pulse Ox 98.5 F 124 H 20 122/71 97 12/07/17 14:00 12/07/17 14:00 12/07/17 05:28 12/07/17 14:00 12/06/17 21:00 CBC, BMP 12/07/17 06:45 12/07/17 06:45 Current Medications Generic Name Dose Route Start Last Admin Trade Name Freq PRN Reason Stop Dose Admin Acetaminophen 650 mg 11/29/17 13:50 12/05/17 12:22 Tylenol - PO 650 mg Q6H PRN Administration FEVER Amlodipine Besylate 2.5 mg 11/30/17 20:00 12/07/17 12:41 Norvasc - PO 2.5 mg DAILY [facility] Administration Aspirin 81 mg 11/29/17 10:00 12/07/17 12:42 Ecotrin - PO 81 mg DAILY [facility] Administration Atorvastatin Calcium 10 mg 11/29/17 22:00 12/06/17 22:03 Lipitor - PO 10 mg HS [facility] Administration Brimonidine Tartrate 1 drop 11/29/17 06:00 12/07/17 15:10 Alphagan P 0.1% - OU 1 drop TID [facility] Administration Calcium Carbonate/Cholecalciferol 1 tab 11/29/17 10:00 12/07/17 12:41 Os-Isacc 500+D - PO 1 tab DAILY [facility] Administration Carbidopa/Levodopa 1 each 12/04/17 14:00 12/07/17 15:13 Sinemet 25/100 - PO 1 each TID [facility] Administration Citalopram Hydrobromide 10 mg 11/29/17 10:00 12/07/17 12:41 Celexa - PO 10 mg DAILY [facility] Administration Cyanocobalamin 1,000 mcg 11/29/17 10:00 12/07/17 12:42 Vitamin B12 - PO 1,000 mcg DAILY [facility] Administration Docusate Sodium 300 mg 11/29/17 22:00 12/06/17 21:33 Colace - PO 300 mg HS [facility] Administration Donepezil HCl 10 mg 11/29/17 10:00 12/07/17 12:41 Aricept - PO 10 mg DAILY [facility] Administration Dorzolamide HCl 1 drop 11/29/17 06:00 12/07/17 15:09 Trusopt 2% OU 1 drop TID [facility] Administration Ferrous Sulfate 325 mg 11/29/17 10:00 12/07/17 12:42 Feosol - PO 325 mg BID [facility] Administration Folic Acid 1 mg 11/29/17 10:00 12/07/17 12:42 Folic Acid - PO 1 mg DAILY [facility] Administration Dextrose 1,000 mls @ 65 mls/hr 12/06/17 14:30 12/07/17 15:10 D5w - IV 65 mls/hr ASDIR [facility] Administration Insulin Aspart 1 vial 11/29/17 07:00 12/07/17 12:53 Novolog Vial Sliding Scale - SQ 2 units TIDAC [facility] Administration Protocol Insulin Aspart 1 vial 11/29/17 22:00 12/06/17 21:35 Novolog Vial Sliding Scale - SQ 3 units HS [facility] Administration Protocol Insulin Detemir 10 units 11/29/17 22:00 12/06/17 21:34 Levemir Vial SQ 10 units HS [facility] Administration Latanoprost 1 drop 11/29/17 22:00 12/06/17 22:02 Xalatan 0.005% Eye Drops - OU 1 drop HS [facility] Administration Pilocarpine HCl 1 drop 11/29/17 10:00 12/07/17 15:11 Pilostat 1% - OU 1 drop QID [facility] Administration Assessment/Plan: Anemia CKD GIB advanced Dementia Poor PS UTI Anemia: ACD/ACI from CKD Iron studies reviewed , ACD no BRODERICK spike GIB in this admission now Hgb is around 10. may need consider MERLIN abx per ID.
[2017-12-07] MEDS ORDERED: DEXTROSE 5%-WATER - 1,000 ML IV SCH (17:27)
--- NOTE | 2017-12-07 17:27 | PN ---
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, Physician History of Present Illness: Pt seen and examined at bedside. She remains confused. - Current Medication List Current Medications: Active Medications Acetaminophen (Tylenol -) 650 mg PO Q6H PRN PRN Reason: FEVER Last Admin: 12/05/17 12:22 Dose: 650 mg Amlodipine Besylate (Norvasc -) 2.5 mg PO DAILY [facility] Last Admin: 12/07/17 12:41 Dose: 2.5 mg Aspirin (Ecotrin -) 81 mg PO DAILY [facility] Last Admin: 12/07/17 12:42 Dose: 81 mg Atorvastatin Calcium (Lipitor -) 10 mg PO HS [facility] Last Admin: 12/06/17 22:03 Dose: 10 mg Brimonidine Tartrate (Alphagan P 0.1% -) 1 drop OU TID [facility] Last Admin: 12/07/17 15:10 Dose: 1 drop Calcium Carbonate/Cholecalciferol (Os-Isacc 500+D -) 1 tab PO DAILY [facility] Last Admin: 12/07/17 12:41 Dose: 1 tab Carbidopa/Levodopa (Sinemet 25/100 -) 1 each PO TID [facility] Last Admin: 12/07/17 15:13 Dose: 1 each Citalopram Hydrobromide (Celexa -) 10 mg PO DAILY [facility] Last Admin: 12/07/17 12:41 Dose: 10 mg Cyanocobalamin (Vitamin B12 -) 1,000 mcg PO DAILY [facility] Last Admin: 12/07/17 12:42 Dose: 1,000 mcg Docusate Sodium (Colace -) 300 mg PO [facility] Last Admin: 12/06/17 21:33 Dose: 300 mg Donepezil HCl (Aricept -) 10 mg PO DAILY [facility] Last Admin: 12/07/17 12:41 Dose: 10 mg Dorzolamide HCl (Trusopt 2%) 1 drop OU TID [facility] Last Admin: 12/07/17 15:09 Dose: 1 drop Ferrous Sulfate (Feosol -) 325 mg PO BID [facility] Last Admin: 12/07/17 12:42 Dose: 325 mg Folic Acid (Folic Acid -) 1 mg PO DAILY [facility] Last Admin: 12/07/17 12:42 Dose: 1 mg Dextrose (D5w -) 1,000 mls @ 65 mls/hr IV ASDIR [facility] Last Admin: 12/07/17 15:10 Dose: 65 mls/hr Insulin Aspart (Novolog Vial Sliding Scale -) 1 vial SQ TIDAC GRETCHEN PRN Reason: Protocol Last Admin: 12/07/17 12:53 Dose: 2 units Insulin Aspart (Novolog Vial Sliding Scale -) 1 vial SQ HS GRETCHEN PRN Reason: Protocol Last Admin: 12/06/17 21:35 Dose: 3 units Insulin Detemir (Levemir Vial) 10 units SQ HS GRETCHEN Last Admin: 12/06/17 21:34 Dose: 10 units Latanoprost (Xalatan 0.005% Eye Drops -) 1 drop OU HS GRETCHEN Last Admin: 12/06/17 22:02 Dose: 1 drop Pilocarpine HCl (Pilostat 1% -) 1 drop OU QID [facility] Last Admin: 12/07/17 15:11 Dose: 1 drop - Objective Vital Signs: Vital Signs Temperature 98.5 F 12/07/17 14:00 Pulse Rate 124 H 12/07/17 14:00 Respiratory Rate 20 12/07/17 05:28 Blood Pressure 122/71 12/07/17 14:00 O2 Sat by Pulse Oximetry (%) 97 12/07/17 09:00 Eyes: Yes: Conjunctiva Clear HENT: Yes: Atraumatic Cardiovascular: Yes: S1, S2 Respiratory: Yes: On Nasal O2 Gastrointestinal: Yes: Soft Genitourinary: Yes: Incontinence Musculoskeletal: Yes: Muscle Weakness Edema: No Neurological: Yes: Confusion Labs: CBC, BMP 12/07/17 06:45 12/07/17 06:45 INR, PTT INR 0.96 (0.82-1.09) 11/28/17 12:44 Problem List - Problems (1) BING (acute kidney injury) Code(s): N17.9 - ACUTE KIDNEY FAILURE, UNSPECIFIED (2) Altered mental status Code(s): R41.82 - ALTERED MENTAL STATUS, UNSPECIFIED Qualifiers: Altered mental status type: unspecified Qualified Code(s): R41.82 - Altered mental status, unspecified (3) Hypernatremia Code(s): E87.0 - HYPEROSMOLALITY AND HYPERNATREMIA Assessment/Plan Current Medications Generic Name Dose Route Start Last Admin Trade Name Freq PRN Reason Stop Dose Admin Acetaminophen 650 mg 11/29/17 13:50 12/05/17 12:22 Tylenol - PO 650 mg Q6H PRN Administration FEVER Amlodipine Besylate 2.5 mg 11/30/17 20:00 12/07/17 12:41 Norvasc - PO 2.5 mg DAILY GRETCHEN Administration Aspirin 81 mg 11/29/17 10:00 12/07/17 12:42 Ecotrin - PO 81 mg DAILY GRETCHEN Administration Atorvastatin Calcium 10 mg 11/29/17 22:00 12/06/17 22:03 Lipitor - PO 10 mg HS GRETCHEN Administration Brimonidine Tartrate 1 drop 11/29/17 06:00 12/07/17 15:10 Alphagan P 0.1% - OU 1 drop TID GRETCHEN Administration Calcium Carbonate/Cholecalciferol 1 tab 11/29/17 10:00 12/07/17 12:41 Os-Isacc 500+D - PO 1 tab DAILY GRETCHEN Administration Carbidopa/Levodopa 1 each 12/04/17 14:00 12/07/17 15:13 Sinemet 25/100 - PO 1 each TID GRETCHEN Administration Citalopram Hydrobromide 10 mg 11/29/17 10:00 12/07/17 12:41 Celexa - PO 10 mg DAILY GRETCHEN Administration Cyanocobalamin 1,000 mcg 11/29/17 10:00 12/07/17 12:42 Vitamin B12 - PO 1,000 mcg DAILY GRETCHEN Administration Docusate Sodium 300 mg 11/29/17 22:00 12/06/17 21:33 Colace - PO 300 mg HS GRETCHEN Administration Donepezil HCl 10 mg 11/29/17 10:00 12/07/17 12:41 Aricept - PO 10 mg DAILY GRETCHEN Administration Dorzolamide HCl 1 drop 11/29/17 06:00 12/07/17 15:09 Trusopt 2% OU 1 drop TID GRETCHEN Administration Ferrous Sulfate 325 mg 11/29/17 10:00 12/07/17 12:42 Feosol - PO 325 mg BID GRECTHEN Administration Folic Acid 1 mg 11/29/17 10:00 12/07/17 12:42 Folic Acid - PO 1 mg DAILY GRETCHEN Administration Dextrose 1,000 mls @ 65 mls/hr 12/06/17 14:30 12/07/17 15:10 D5w - IV 65 mls/hr ASDIR GRETCHEN Administration Insulin Aspart 1 vial 11/29/17 07:00 12/07/17 12:53 Novolog Vial Sliding Scale - SQ 2 units TIDAC GRETCHEN Administration Protocol Insulin Aspart 1 vial 11/29/17 22:00 12/06/17 21:35 Novolog Vial Sliding Scale - SQ 3 units HS GRETCHEN Administration Protocol Insulin Detemir 10 units 11/29/17 22:00 12/06/17 21:34 Levemir Vial SQ 10 units HS GRETCHEN Administration Latanoprost 1 drop 11/29/17 22:00 12/06/17 22:02 Xalatan 0.005% Eye Drops - OU 1 drop HS GRETCHEN Administration Pilocarpine HCl 1 drop 11/29/17 10:00 12/07/17 15:11 Pilostat 1% - OU 1 drop QID GRETCHEN Administration Impression 1. CKD stage 4 2. anemia 3. change in mental status 4. hypernatremia 5. dehydration 6. Parkinson's disease 7. Depression 8. hyperkalemia Plan - cont d5w - poor po intake - repeat labs in am - neuro/psych follow up - anemia workup in progress - renal diet - abx per ID - will follow
[2017-12-07] MEDS: ATORVASTATIN CA 10 MG TABLET (FP) PO SCH (22:52)
[2017-12-07] MEDS ORDERED: INSULIN DETEMIR 100 UNITS/ML MDV SQ ONE (23:01)
[2017-12-07] MEDS: INSULIN DETEMIR 100 UNITS/ML MDV SQ SCH (23:19)
[2017-12-07] MEDS: DOCUSATE SODIUM 100 MG CAPSULE (FP) PO SCH (23:46)
[2017-12-07] MEDS: LATANOPROST 0.005% OPHTH SOLN 2.5ML BOTTLE OU SCH (23:47)
[2017-12-08] MEDS: CARBIDOPA/LEVODOPA 25/100 TABLET (FP) PO SCH ×3 (06:01→22:53)
[2017-12-08] MEDS: DORZOLAMIDE 2% HCL OPHTHALMIC SOLUTION 10 ML BOTTLE OU SCH ×3 (06:01→22:59)
[2017-12-08] MEDS: BRIMONIDINE TARTRATE 0.1% OPHTHALMIC 5 ML BOTTLE OU SCH ×3 (06:01→22:59)
[2017-12-08] MEDS: INSULIN SLIDING SCALE (NOVOLOG) 1 VIAL SQ SCH ×4 (06:02→22:54)
[2017-12-08 08:33] LABS: CHLORIDE 108 mmol/L (98-107); SODIUM 139 mmol/L (136-145)
[2017-12-08 08:38] LABS: ANION GAP 9 (8-16); BLOOD UREA NITROGEN 88 mg/dL (7-18); CALCIUM 7.7 mg/dL (8.5-10.1); CO2 22 mmol/L (21-32); CREATININE 3.6 mg/dL (0.55-1.02); GLUCOSE,RANDOM 213 mg/dL (74-106)
[2017-12-08 08:46] LABS: POTASSIUM 5.6 mmol/L (3.5-5.1)
[2017-12-08] MEDS: CALCIUM 500MG/VIT-D 200 UNITS COMBO TABLET (FP) PO SCH (09:56)
[2017-12-08] MEDS: amLODIPine BESYLATE 2.5 MG TABLET (FP) PO SCH (09:57)
[2017-12-08] MEDS: DONEPEZIL HCL 10 MG TABLET (FP) PO SCH (09:57)
[2017-12-08] MEDS: CYANOCOBALAMIN 1,000 MCG TABLET (FP) PO SCH (09:57)
[2017-12-08] MEDS: ASPIRIN COATED 81 MG TABLET.EC PO SCH (09:57)
[2017-12-08] MEDS: FOLIC ACID 1 MG TABLET (FP) PO SCH (09:57)
[2017-12-08] MEDS: CITALOPRAM HYDROBROMIDE 10 MG TABLET (FP) PO SCH (09:57)
[2017-12-08] MEDS: FERROUS SO4 325 MG TABLET (FP) PO SCH ×2 (09:57→22:53)
[2017-12-08] MEDS: PILOCARPINE 1% OPHTHALMIC SOLUTION 15 ML BOTTLE OU SCH ×4 (09:58→22:59)
[2017-12-08] MEDS ORDERED: SODIUM POLYSTYRENE SULFONATE 15 GM/60 ML BOTTLE PO ONE (11:40)
--- NOTE | 2017-12-08 11:42 | PN ---
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, Physician - Current Medication List Current Medications: Active Medications Acetaminophen (Tylenol -) 650 mg PO Q6H PRN PRN Reason: FEVER Last Admin: 12/05/17 12:22 Dose: 650 mg Amlodipine Besylate (Norvasc -) 2.5 mg PO DAILY [facility] Last Admin: 12/08/17 09:57 Dose: 2.5 mg Aspirin (Ecotrin -) 81 mg PO DAILY [facility] Last Admin: 12/08/17 09:57 Dose: 81 mg Atorvastatin Calcium (Lipitor -) 10 mg PO HS [facility] Last Admin: 12/07/17 22:52 Dose: 10 mg Brimonidine Tartrate (Alphagan P 0.1% -) 1 drop OU TID [facility] Last Admin: 12/08/17 06:01 Dose: 1 drop Calcium Carbonate/Cholecalciferol (Os-Isacc 500+D -) 1 tab PO DAILY [facility] Last Admin: 12/08/17 09:56 Dose: 1 tab Carbidopa/Levodopa (Sinemet 25/100 -) 1 each PO TID [facility] Last Admin: 12/08/17 06:01 Dose: 1 each Citalopram Hydrobromide (Celexa -) 10 mg PO DAILY [facility] Last Admin: 12/08/17 09:57 Dose: 10 mg Cyanocobalamin (Vitamin B12 -) 1,000 mcg PO DAILY [facility] Last Admin: 12/08/17 09:57 Dose: 1,000 mcg Docusate Sodium (Colace -) 300 mg PO [facility] Last Admin: 12/07/17 23:46 Dose: Not Given Donepezil HCl (Aricept -) 10 mg PO DAILY [facility] Last Admin: 12/08/17 09:57 Dose: 10 mg Dorzolamide HCl (Trusopt 2%) 1 drop OU TID [facility] Last Admin: 12/08/17 06:01 Dose: 1 drop Ferrous Sulfate (Feosol -) 325 mg PO BID [facility] Last Admin: 12/08/17 09:57 Dose: 325 mg Folic Acid (Folic Acid -) 1 mg PO DAILY [facility] Last Admin: 12/08/17 09:57 Dose: 1 mg Dextrose (D5w -) 1,000 mls @ 70 mls/hr IV ASDIR [facility] Last Admin: 12/07/17 17:45 Dose: 70 mls/hr Insulin Aspart (Novolog Vial Sliding Scale -) 1 vial SQ TIDAC [facility] PRN Reason: Protocol Last Admin: 12/08/17 06:02 Dose: 3 units Insulin Aspart (Novolog Vial Sliding Scale -) 1 vial SQ HS GRETCHEN PRN Reason: Protocol Last Admin: 12/07/17 22:58 Dose: 3 units Insulin Detemir (Levemir Vial) 10 units SQ HS [facility] Last Admin: 12/07/17 23:19 Dose: 10 units Latanoprost (Xalatan 0.005% Eye Drops -) 1 drop OU HS [facility] Last Admin: 12/07/17 23:47 Dose: 1 drop Pilocarpine HCl (Pilostat 1% -) 1 drop OU QID [facility] Last Admin: 12/08/17 09:58 Dose: 1 drop - Objective Vital Signs: Vital Signs Temperature 97.2 F L 12/08/17 05:35 Pulse Rate 72 12/08/17 05:35 Respiratory Rate 20 12/08/17 02:00 Blood Pressure 112/56 12/08/17 05:35 O2 Sat by Pulse Oximetry (%) 99 12/07/17 20:45 Cardiovascular: Yes: S1, S2 Respiratory: Yes: Regular, CTA Bilaterally Gastrointestinal: Yes: Normal Bowel Sounds, Soft Labs: CBC, BMP 12/07/17 06:45 12/08/17 05:05 INR, PTT INR 0.96 (0.82-1.09) 11/28/17 12:44 Problem List - Problems (1) BING (acute kidney injury) Code(s): N17.9 - ACUTE KIDNEY FAILURE, UNSPECIFIED (2) Altered mental status Code(s): R41.82 - ALTERED MENTAL STATUS, UNSPECIFIED Qualifiers: Altered mental status type: unspecified Qualified Code(s): R41.82 - Altered mental status, unspecified (3) Anemia Code(s): D64.9 - ANEMIA, UNSPECIFIED Qualifiers: Anemia type: unspecified type Qualified Code(s): D64.9 - Anemia, unspecified (4) Elevated troponin Code(s): R74.8 - ABNORMAL LEVELS OF OTHER SERUM ENZYMES Assessment/Plan - Problems (1) BING (acute kidney injury) Assessment/Plan: -seen by nephrology -chronic -K HIGH--GIVE KAYAXELATE Code(s): N17.9 - ACUTE KIDNEY FAILURE, UNSPECIFIED (2) Altered mental status Assessment/Plan: -underlying dementia, exacerbated mental status 2/2 to acute infection Code(s): R41.82 - ALTERED MENTAL STATUS, UNSPECIFIED Qualifiers: Altered mental status type: unspecified Qualified Code(s): R41.82 - Altered mental status, unspecified (3) Anemia Assessment/Plan: -prbc given -monitor h/h -hematology consult -GI F/U--EGD Code(s): D64.9 - ANEMIA, UNSPECIFIED Qualifiers: Anemia type: unspecified type Qualified Code(s): D64.9 - Anemia, unspecified (4) Poor Oral Intake--Dehydration Assessment/Plan: needs peg to maintain hydration gi eval (5) Hypernatremia Assessment/Plan: -seen by nephrology -hypotonic fluids increased -repeat labs Code(s): E87.0 - HYPEROSMOLALITY AND HYPERNATREMIA (6) UTI (urinary tract infection) Assessment/Plan: -seen by ID -ESBL in the urine -isolation precautions -Off IV abx Code(s): N39.0 - URINARY TRACT INFECTION, SITE NOT SPECIFIED
--- NOTE | 2017-12-08 15:17 | PN ---
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 (short form) - Note 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: RENAL Pt seen and examined does not open eyes only grunts Last Vital Signs Temp Pulse Resp BP Pulse Ox 97.2 F L 60 18 103/50 98 12/08/17 10:00 12/08/17 10:00 12/08/17 10:00 12/08/17 10:00 12/08/17 09:00 lungs bilaty air entry cvs s1s2 rr abd soft ext no edema scar inb right shoulder CBC, BMP 12/07/17 06:45 12/08/17 05:05 Current Medications Generic Name Dose Route Start Last Admin Trade Name Freq PRN Reason Stop Dose Admin Acetaminophen 650 mg 11/29/17 13:50 12/05/17 12:22 Tylenol - PO 650 mg Q6H PRN Administration FEVER Amlodipine Besylate 2.5 mg 11/30/17 20:00 12/08/17 09:57 Norvasc - PO 2.5 mg DAILY GRETCHEN Administration Aspirin 81 mg 11/29/17 10:00 12/08/17 09:57 Ecotrin - PO 81 mg DAILY GRETCHEN Administration Atorvastatin Calcium 10 mg 11/29/17 22:00 12/07/17 22:52 Lipitor - PO 10 mg HS GRETCHEN Administration Brimonidine Tartrate 1 drop 11/29/17 06:00 12/08/17 14:28 Alphagan P 0.1% - OU 1 drop TID GRETCHEN Administration Calcium Carbonate/Cholecalciferol 1 tab 11/29/17 10:00 12/08/17 09:56 Os-Isacc 500+D - PO 1 tab DAILY GRETCHEN Administration Carbidopa/Levodopa 1 each 12/04/17 14:00 12/08/17 14:28 Sinemet 25/100 - PO 1 each TID GRETCHEN Administration Citalopram Hydrobromide 10 mg 11/29/17 10:00 12/08/17 09:57 Celexa - PO 10 mg DAILY GRETCHEN Administration Cyanocobalamin 1,000 mcg 11/29/17 10:00 12/08/17 09:57 Vitamin B12 - PO 1,000 mcg DAILY GRETCHEN Administration Docusate Sodium 300 mg 11/29/17 22:00 12/07/17 23:46 Colace - PO Not Given HS GRETCHEN Donepezil HCl 10 mg 11/29/17 10:00 12/08/17 09:57 Aricept - PO 10 mg DAILY GRETCHEN Administration Dorzolamide HCl 1 drop 11/29/17 06:00 12/08/17 14:28 Trusopt 2% OU 1 drop TID GRETCHEN Administration Ferrous Sulfate 325 mg 11/29/17 10:00 12/08/17 09:57 Feosol - PO 325 mg BID GRETCHEN Administration Folic Acid 1 mg 11/29/17 10:00 12/08/17 09:57 Folic Acid - PO 1 mg DAILY GRETCH[facility] Administration Dextrose 1,000 mls @ 70 mls/hr 12/07/17 17:27 12/07/17 17:45 D5w - IV 70 mls/hr ASDIR GRETCHEN Administration Insulin Aspart 1 vial 11/29/17 07:00 12/08/17 11:54 Novolog Vial Sliding Scale - SQ Not Given TIDAC GRETCHEN Protocol Insulin Aspart 1 vial 11/29/17 22:00 12/07/17 22:58 Novolog Vial Sliding Scale - SQ 3 units HS GRETCHEN Administration Protocol Insulin Detemir 10 units 11/29/17 22:00 12/07/17 23:19 Levemir Vial SQ 10 units HS GRETCHEN Administration Latanoprost 1 drop 11/29/17 22:00 12/07/17 23:47 Xalatan 0.005% Eye Drops - OU 1 drop HS GRETCHEN Administration Pilocarpine HCl 1 drop 11/29/17 10:00 12/08/17 14:28 Pilostat 1% - OU 1 drop QID GRETCHEN Administration Impression 1. CKD stage 4 2. anemia 3. change in mental status 4. hypernatremia 5. dehydration 6. Parkinson's disease 7. Depression 8. hyperkalemia Plan change ivf to 1/2 ns bladder scan repeat ua MV
[2017-12-08 16:51] LABS: URINE APPEARANCE SLCLOUDY; URINE BILIRUBIN NEGATIVE (NEGATIVE); URINE BLOOD 1+ (NEGATIVE); URINE COLOR LTYELLOW; URINE GLUCOSE (UA) 1+ (NEGATIVE); URINE KETONE NEGATIVE (NEGATIVE); URINE NITRITE NEGATIVE (NEGATIVE); URINE UROBILINOGEN NEGATIVE mg/dL (0.2-1.0)
[2017-12-08 16:56] LABS: URINE LEUK ESTERASE 2+ (NEGATIVE); URINE PROTEIN 2+ (NEGATIVE)
[2017-12-08] MEDS: DEXTROSE 5%-0.45% SALINE 1,000 ML IV SCH (17:05)
[2017-12-08 17:12] LABS: EPI CELLS RARE /HPF (FEW); GRANULAR CASTS 1 /lpf
[2017-12-08] MEDS: ATORVASTATIN CA 10 MG TABLET (FP) PO SCH (22:53)
[2017-12-08] MEDS: INSULIN DETEMIR 100 UNITS/ML MDV SQ SCH (22:53)
[2017-12-08] MEDS: LATANOPROST 0.005% OPHTH SOLN 2.5ML BOTTLE OU SCH (22:59)
[2017-12-08] MEDS: DOCUSATE SODIUM 100 MG CAPSULE (FP) PO SCH (22:59)
[2017-12-09] MEDS: BRIMONIDINE TARTRATE 0.1% OPHTHALMIC 5 ML BOTTLE OU SCH ×3 (05:51→22:23)
[2017-12-09] MEDS: DORZOLAMIDE 2% HCL OPHTHALMIC SOLUTION 10 ML BOTTLE OU SCH ×3 (05:51→22:23)
[2017-12-09] MEDS: CARBIDOPA/LEVODOPA 25/100 TABLET (FP) PO SCH ×3 (05:51→22:55)
[2017-12-09] MEDS: INSULIN SLIDING SCALE (NOVOLOG) 1 VIAL SQ SCH ×4 (06:09→22:54)
[2017-12-09 07:06] LABS: INR 0.93 (0.82-1.09); PROTHROMBIN TIME (PATIENT) 10.5 SEC (9.98-11.88)
[2017-12-09 07:12] LABS: BASO % 0.2 % (0-2.0); EOS % 1.4 % (0-4.5); HEMATOCRIT 29.6 % (32.4-45.2); HEMOGLOBIN 9.7 GM/dL (10.7-15.3); LYMPH % 6.6 % (8-40); MCH 30.5 pg (25.7-33.7); MCHC 32.7 g/dl (32.0-36.0); MEAN CELL VOLUME 93.3 fl (80-96); MEAN PLT VOLUME 8.1 fl (7.5-11.1); MONO % 4.8 % (3.8-10.2); PLATELET COUNT 203 K/MM3 (134-434); RBC 3.17 M/mm3 (3.60-5.2); WHITE BLOOD COUNT 8.2 K/mm3 (4.0-10.0)
[2017-12-09 07:21] LABS: CHLORIDE 106 mmol/L (98-107); POTASSIUM 4.2 mmol/L (3.5-5.1); SODIUM 140 mmol/L (136-145)
[2017-12-09 07:37] LABS: ALBUMIN 1.8 g/dl (3.4-5.0); ALK PHOS 65 U/L (45-117); ANION GAP 10 (8-16); BILIRUBIN,TOTAL 0.4 mg/dL (0.2-1.0); BLOOD UREA NITROGEN 83 mg/dL (7-18); CALCIUM 7.7 mg/dL (8.5-10.1); CO2 24 mmol/L (21-32); CREATININE 3.3 mg/dL (0.55-1.02); GLUCOSE,RANDOM 159 mg/dL (74-106); SGOT/AST 33 U/L (15-37); SGPT/ALT 10 U/L (12-78); TOT PROT 5.2 g/dl (6.4-8.2)
--- NOTE | 2017-12-09 10:22 | PN ---
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, Physician History of Present Illness: IN BED LETHARGIC VEST IN PLACE FOR SAFETY - Current Medication List Current Medications: Active Medications Acetaminophen (Tylenol -) 650 mg PO Q6H PRN PRN Reason: FEVER Last Admin: 12/05/17 12:22 Dose: 650 mg Amlodipine Besylate (Norvasc -) 2.5 mg PO DAILY [facility] Last Admin: 12/08/17 09:57 Dose: 2.5 mg Aspirin (Ecotrin -) 81 mg PO DAILY [facility] Last Admin: 12/08/17 09:57 Dose: 81 mg Atorvastatin Calcium (Lipitor -) 10 mg PO HS [facility] Last Admin: 12/08/17 22:53 Dose: 10 mg Brimonidine Tartrate (Alphagan P 0.1% -) 1 drop OU TID [facility] Last Admin: 12/09/17 05:51 Dose: 1 drop Calcium Carbonate/Cholecalciferol (Os-Isacc 500+D -) 1 tab PO DAILY [facility] Last Admin: 12/08/17 09:56 Dose: 1 tab Carbidopa/Levodopa (Sinemet 25/100 -) 1 each PO TID [facility] Last Admin: 12/09/17 05:51 Dose: 1 each Citalopram Hydrobromide (Celexa -) 10 mg PO DAILY [facility] Last Admin: 12/08/17 09:57 Dose: 10 mg Cyanocobalamin (Vitamin B12 -) 1,000 mcg PO DAILY [facility] Last Admin: 12/08/17 09:57 Dose: 1,000 mcg Docusate Sodium (Colace -) 300 mg PO [facility] Last Admin: 12/08/17 22:59 Dose: Not Given Donepezil HCl (Aricept -) 10 mg PO DAILY [facility] Last Admin: 12/08/17 09:57 Dose: 10 mg Dorzolamide HCl (Trusopt 2%) 1 drop OU TID [facility] Last Admin: 12/09/17 05:51 Dose: 1 drop Ferrous Sulfate (Feosol -) 325 mg PO BID [facility] Last Admin: 12/08/17 22:53 Dose: 325 mg Folic Acid (Folic Acid -) 1 mg PO DAILY [facility] Last Admin: 12/08/17 09:57 Dose: 1 mg Dextrose/Sodium Chloride (D5-1/2ns -) 1,000 mls @ 83 mls/hr IV ASDIR [facility] Last Admin: 12/08/17 17:05 Dose: 83 mls/hr Insulin Aspart (Novolog Vial Sliding Scale -) 1 vial SQ TIDAC GRETCHEN PRN Reason: Protocol Last Admin: 12/09/17 06:09 Dose: 2 units Insulin Aspart (Novolog Vial Sliding Scale -) 1 vial SQ HS [facility]CH[facility] PRN Reason: Protocol Last Admin: 12/08/17 22:54 Dose: 3 units Insulin Detemir (Levemir Vial) 10 units SQ HS [facility] Last Admin: 12/08/17 22:53 Dose: 10 units Latanoprost (Xalatan 0.005% Eye Drops -) 1 drop OU HS [facility] Last Admin: 12/08/17 22:59 Dose: 1 drop Pilocarpine HCl (Pilostat 1% -) 1 drop OU QID [facility] Last Admin: 12/08/17 22:59 Dose: 1 drop - Objective Vital Signs: Vital Signs Temperature 99 F 12/09/17 06:00 Pulse Rate 66 12/09/17 06:00 Respiratory Rate 20 12/09/17 06:00 Blood Pressure 101/56 12/09/17 06:00 O2 Sat by Pulse Oximetry (%) 98 12/08/17 21:00 Cardiovascular: Yes: S1, S2 Respiratory: Yes: Regular, CTA Bilaterally Gastrointestinal: Yes: Normal Bowel Sounds, Soft. No: Tenderness Labs: CBC, BMP 12/09/17 05:05 12/09/17 05:05 INR, PTT INR 0.93 (0.82-1.09) 12/09/17 05:05 Problem List - Problems (1) BING (acute kidney injury) Code(s): N17.9 - ACUTE KIDNEY FAILURE, UNSPECIFIED (2) Altered mental status Code(s): R41.82 - ALTERED MENTAL STATUS, UNSPECIFIED Qualifiers: Altered mental status type: unspecified Qualified Code(s): R41.82 - Altered mental status, unspecified (3) Anemia Code(s): D64.9 - ANEMIA, UNSPECIFIED Qualifiers: Anemia type: unspecified type Qualified Code(s): D64.9 - Anemia, unspecified (4) Elevated troponin Code(s): R74.8 - ABNORMAL LEVELS OF OTHER SERUM ENZYMES Assessment/Plan - Problems (1) BING (acute kidney injury) Assessment/Plan: -seen by nephrology -chronic -K HIGH--GIVE KAYAXELATE Code(s): N17.9 - ACUTE KIDNEY FAILURE, UNSPECIFIED (2) Altered mental status Assessment/Plan: -underlying dementia, exacerbated mental status 2/2 to acute infection Code(s): R41.82 - ALTERED MENTAL STATUS, UNSPECIFIED Qualifiers: Altered mental status type: unspecified Qualified Code(s): R41.82 - Altered mental status, unspecified (3) Anemia Assessment/Plan: -prbc given -monitor h/h -hematology consult -GI F/U--EGD Code(s): D64.9 - ANEMIA, UNSPECIFIED Qualifiers: Anemia type: unspecified type Qualified Code(s): D64.9 - Anemia, unspecified (4) Poor Oral Intake--Dehydration Assessment/Plan: needs peg to maintain hydration gi eval (5) Hypernatremia Assessment/Plan: -seen by nephrology -hypotonic fluids increased -repeat labs Code(s): E87.0 - HYPEROSMOLALITY AND HYPERNATREMIA (6) UTI (urinary tract infection) Assessment/Plan: -seen by ID -ESBL in the urine -isolation precautions -Off IV abx Code(s): N39.0 - URINARY TRACT INFECTION, SITE NOT SPECIFIED (7) DM Assessment/Plan: [facility]
[2017-12-09] MEDS ORDERED: PT OWN MED DRAWER 7, Y5N ONE (11:00)
[2017-12-09] MEDS: ASPIRIN COATED 81 MG TABLET.EC PO SCH (11:07)
[2017-12-09] MEDS: FOLIC ACID 1 MG TABLET (FP) PO SCH (11:07)
[2017-12-09] MEDS: FERROUS SO4 325 MG TABLET (FP) PO SCH ×2 (11:07→22:17)
[2017-12-09] MEDS: PILOCARPINE 1% OPHTHALMIC SOLUTION 15 ML BOTTLE OU SCH ×4 (11:07→22:23)
[2017-12-09] MEDS: CYANOCOBALAMIN 1,000 MCG TABLET (FP) PO SCH (11:07)
[2017-12-09] MEDS: DONEPEZIL HCL 10 MG TABLET (FP) PO SCH (11:07)
[2017-12-09] MEDS: CITALOPRAM HYDROBROMIDE 10 MG TABLET (FP) PO SCH (11:08)
[2017-12-09] MEDS: CALCIUM 500MG/VIT-D 200 UNITS COMBO TABLET (FP) PO SCH (11:08)
[2017-12-09] MEDS: amLODIPine BESYLATE 2.5 MG TABLET (FP) PO SCH (11:08)
[2017-12-09] MEDS: ACETAMINOPHEN 325 MG TABLET (FP) PO PRN ×2 (13:23→22:17)
--- NOTE | 2017-12-09 14:26 | PN ---
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 (short form) - Note 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: RENAL Pt seen and examined does not open eyes only grunts appears comfortable however Last Vital Signs Temp Pulse Resp BP Pulse Ox 99 F 66 20 101/56 98 12/09/17 06:00 12/09/17 06:00 12/09/17 06:00 12/09/17 06:00 12/08/17 21:00 lungs bilaty air entry cvs s1s2 rr abd soft ext no edema scar in right shoulder neuro responds by grunting does not open her eyes CBC, BMP 12/09/17 05:05 12/09/17 05:05 Current Medications Generic Name Dose Route Start Last Admin Trade Name Freq PRN Reason Stop Dose Admin Acetaminophen 650 mg 11/29/17 13:50 12/09/17 13:23 Tylenol - PO 650 mg Q6H PRN Administration FEVER Amlodipine Besylate 2.5 mg 11/30/17 20:00 12/09/17 11:08 Norvasc - PO 2.5 mg DAILY GRETCHEN Administration Aspirin 81 mg 11/29/17 10:00 12/09/17 11:07 Ecotrin - PO 81 mg DAILY GRETCHEN Administration Atorvastatin Calcium 10 mg 11/29/17 22:00 12/08/17 22:53 Lipitor - PO 10 mg HS GRETCHEN Administration Brimonidine Tartrate 1 drop 11/29/17 06:00 12/09/17 13:24 Alphagan P 0.1% - OU 1 drop TID GRETCHEN Administration Calcium Carbonate/Cholecalciferol 1 tab 11/29/17 10:00 12/09/17 11:08 Os-Isacc 500+D - PO 1 tab DAILY GRETCHEN Administration Carbidopa/Levodopa 1 each 12/04/17 14:00 12/09/17 13:24 Sinemet 25/100 - PO 1 each TID GRETCHEN Administration Citalopram Hydrobromide 10 mg 11/29/17 10:00 12/09/17 11:08 Celexa - PO 10 mg DAILY GRETCHEN Administration Cyanocobalamin 1,000 mcg 11/29/17 10:00 12/09/17 11:07 Vitamin B12 - PO 1,000 mcg DAILY GRETCHEN Administration Docusate Sodium 300 mg 11/29/17 22:00 12/08/17 22:59 Colace - PO Not Given HS GRETCHEN Donepezil HCl 10 mg 11/29/17 10:00 12/09/17 11:07 Aricept - PO 10 mg DAILY GRETCHEN Administration Dorzolamide HCl 1 drop 11/29/17 06:00 12/09/17 13:24 Trusopt 2% OU 1 drop TID GRETCHEN Administration Ferrous Sulfate 325 mg 11/29/17 10:00 12/09/17 11:07 Feosol - PO 325 mg BID GRETCHEN Administration Folic Acid 1 mg 11/29/17 10:00 12/09/17 11:07 Folic Acid - PO 1 mg DAILY GRETCH[facility] Administration Dextrose/Sodium Chloride 1,000 mls @ 83 mls/hr 12/08/17 15:30 12/08/17 17:05 D5-1/2ns - IV 83 mls/hr ASDIR GRETCHEN Administration Insulin Aspart 1 vial 11/29/17 07:00 12/09/17 12:27 Novolog Vial Sliding Scale - SQ 2 units TIDAC GRETCHEN Administration Protocol Insulin Aspart 1 vial 11/29/17 22:00 12/08/17 22:54 Novolog Vial Sliding Scale - SQ 3 units HS GRETCHEN Administration Protocol Insulin Detemir 10 units 11/29/17 22:00 12/08/17 22:53 Levemir Vial SQ 10 units HS GRETCHEN Administration Latanoprost 1 drop 11/29/17 22:00 12/08/17 22:59 Xalatan 0.005% Eye Drops - OU 1 drop HS GRETCHEN Administration Pilocarpine HCl 1 drop 11/29/17 10:00 12/09/17 13:24 Pilostat 1% - OU 1 drop QID GRETHC[facility] Administration Impression 1. CKD stage 4 2. anemia 3. change in mental status 4. hypernatremia 5. dehydration 6. Parkinson's disease 7. Depression 8. hyperkalemia 9. persistent pyuria PLAN would check urine culture continue fluids monitor renal function no urgent need for hd MV
[2017-12-09] MEDS: DEXTROSE 5%-0.45% SALINE 1,000 ML IV SCH (20:00)
[2017-12-09] MEDS: INSULIN DETEMIR 100 UNITS/ML MDV SQ SCH (22:17)
[2017-12-09] MEDS: ATORVASTATIN CA 10 MG TABLET (FP) PO SCH (22:17)
[2017-12-09] MEDS: DOCUSATE SODIUM 100 MG CAPSULE (FP) PO SCH (22:53)
[2017-12-09] MEDS: LATANOPROST 0.005% OPHTH SOLN 2.5ML BOTTLE OU SCH (22:54)
[2017-12-10] MEDS: ACETAMINOPHEN 325 MG TABLET (FP) PO PRN ×2 (05:21→22:37)
[2017-12-10] MEDS: CARBIDOPA/LEVODOPA 25/100 TABLET (FP) PO SCH ×3 (06:11→22:38)
[2017-12-10] MEDS: BRIMONIDINE TARTRATE 0.1% OPHTHALMIC 5 ML BOTTLE OU SCH ×3 (06:15→22:43)
[2017-12-10] MEDS: DORZOLAMIDE 2% HCL OPHTHALMIC SOLUTION 10 ML BOTTLE OU SCH ×3 (06:15→22:44)
[2017-12-10] MEDS: INSULIN SLIDING SCALE (NOVOLOG) 1 VIAL SQ SCH ×4 (06:18→22:44)
[2017-12-10] MEDS ORDERED: clonazePAM 0.5 MG TABLET PO ONE (06:19)
--- NOTE | 2017-12-10 06:32 | HOSP ---
Subjective - Review of Symptoms Events since last encounter: called to see pt as pt moaning. Physical Examination Vital Signs: Vital Signs Temperature 98.6 F 12/10/17 02:00 Pulse Rate 72 12/10/17 02:00 Respiratory Rate 20 12/10/17 02:00 Blood Pressure 118/67 12/10/17 02:00 O2 Sat by Pulse Oximetry (%) 98 12/09/17 20:44 Findings/Remarks: upon arrival to see pt, pt moaning loudly. Unable to answer any questions. Does not localize voice. AM care being provided. Cardiovascular: Yes: Regular Rate and Rhythm, S1, S2 Respiratory: Yes: WNL Gastrointestinal: Yes: Normal Bowel Sounds, Soft. No: Tenderness Musculoskeletal: Yes: Other (deformity noted right shoulder, old ORIF right humerus fracture noted on CXR, resists ROM all joints but appears able to move all extremities.) Edema: No Integumentary: Yes: WNL Labs: CBC, BMP 12/09/17 05:05 12/09/17 05:05 Hospitalist Encounter Assessment: moaning - given tylenol without relief - pt previously on klonopin and haldol in [place], held due to lethargy on admission - will give klonopin x 1, restart BID if effective.
--- NOTE | 2017-12-10 08:45 | PN ---
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, Physician - Current Medication List Current Medications: Active Medications Acetaminophen (Tylenol -) 650 mg PO Q6H PRN PRN Reason: FEVER Last Admin: 12/10/17 05:21 Dose: 650 mg Amlodipine Besylate (Norvasc -) 2.5 mg PO DAILY [facility] Last Admin: 12/09/17 11:08 Dose: 2.5 mg Aspirin (Ecotrin -) 81 mg PO DAILY [facility] Last Admin: 12/09/17 11:07 Dose: 81 mg Atorvastatin Calcium (Lipitor -) 10 mg PO HS [facility] Last Admin: 12/09/17 22:17 Dose: 10 mg Brimonidine Tartrate (Alphagan P 0.1% -) 1 drop OU TID [facility] Last Admin: 12/10/17 06:15 Dose: 1 drop Calcium Carbonate/Cholecalciferol (Os-Iascc 500+D -) 1 tab PO DAILY [facility] Last Admin: 12/09/17 11:08 Dose: 1 tab Carbidopa/Levodopa (Sinemet 25/100 -) 1 each PO TID [facility] Last Admin: 12/10/17 06:11 Dose: 1 each Citalopram Hydrobromide (Celexa -) 10 mg PO DAILY [facility] Last Admin: 12/09/17 11:08 Dose: 10 mg Cyanocobalamin (Vitamin B12 -) 1,000 mcg PO DAILY [facility] Last Admin: 12/09/17 11:07 Dose: 1,000 mcg Docusate Sodium (Colace -) 300 mg PO HS [facility] Last Admin: 12/09/17 22:53 Dose: Not Given Donepezil HCl (Aricept -) 10 mg PO DAILY [facility] Last Admin: 12/09/17 11:07 Dose: 10 mg Dorzolamide HCl (Trusopt 2%) 1 drop OU TID [facility] Last Admin: 12/10/17 06:15 Dose: 1 drop Ferrous Sulfate (Feosol -) 325 mg PO BID [facility] Last Admin: 12/09/17 22:17 Dose: 325 mg Folic Acid (Folic Acid -) 1 mg PO DAILY [facility] Last Admin: 12/09/17 11:07 Dose: 1 mg Dextrose/Sodium Chloride (D5-1/2ns -) 1,000 mls @ 83 mls/hr IV ASDIR [facility] Last Admin: 12/09/17 20:00 Dose: 83 mls/hr Insulin Aspart (Novolog Vial Sliding Scale -) 1 vial SQ TIDAC [facility] PRN Reason: Protocol Last Admin: 12/10/17 06:18 Dose: 3 units Insulin Aspart (Novolog Vial Sliding Scale -) 1 vial SQ HS [facility] PRN Reason: Protocol Last Admin: 12/09/17 22:54 Dose: 3 units Insulin Detemir (Levemir Vial) 10 units SQ HS [facility] Last Admin: 12/09/17 22:17 Dose: 10 units Latanoprost (Xalatan 0.005% Eye Drops -) 1 drop OU HS [facility] Last Admin: 12/09/17 22:54 Dose: 1 drop Pilocarpine HCl (Pilostat 1% -) 1 drop OU QID [facility] Last Admin: 12/09/17 22:23 Dose: 1 drop - Objective Vital Signs: Vital Signs Temperature 98.4 F 12/10/17 06:00 Pulse Rate 74 12/10/17 06:00 Respiratory Rate 20 12/10/17 06:00 Blood Pressure 95/56 12/10/17 06:00 O2 Sat by Pulse Oximetry (%) 98 12/09/17 20:44 Cardiovascular: Yes: S1, S2 Respiratory: Yes: Regular, CTA Bilaterally Gastrointestinal: Yes: Normal Bowel Sounds, Soft Neurological: Yes: Confusion Labs: CBC, BMP 12/09/17 05:05 12/09/17 05:05 INR, PTT INR 0.93 (0.82-1.09) 12/09/17 05:05 Problem List - Problems (1) BING (acute kidney injury) Code(s): N17.9 - ACUTE KIDNEY FAILURE, UNSPECIFIED (2) Altered mental status Code(s): R41.82 - ALTERED MENTAL STATUS, UNSPECIFIED Qualifiers: Altered mental status type: unspecified Qualified Code(s): R41.82 - Altered mental status, unspecified (3) Anemia Code(s): D64.9 - ANEMIA, UNSPECIFIED Qualifiers: Anemia type: unspecified type Qualified Code(s): D64.9 - Anemia, unspecified (4) Elevated troponin Code(s): R74.8 - ABNORMAL LEVELS OF OTHER SERUM ENZYMES Assessment/Plan - Problems (1) BING (acute kidney injury) Assessment/Plan: -seen by nephrology -chronic -K HIGH--GIVE KAYAXELATE Code(s): N17.9 - ACUTE KIDNEY FAILURE, UNSPECIFIED (2) Altered mental status Assessment/Plan: -underlying dementia, exacerbated mental status 2/2 to acute infection Code(s): R41.82 - ALTERED MENTAL STATUS, UNSPECIFIED Qualifiers: Altered mental status type: unspecified Qualified Code(s): R41.82 - Altered mental status, unspecified (3) Anemia Assessment/Plan: -prbc given -monitor h/h -hematology consult -GI F/U--EGD Code(s): D64.9 - ANEMIA, UNSPECIFIED Qualifiers: Anemia type: unspecified type Qualified Code(s): D64.9 - Anemia, unspecified (4) Poor Oral Intake--Dehydration Assessment/Plan: needs peg to maintain hydration gi eval (5) Hypernatremia Assessment/Plan: -seen by nephrology -hypotonic fluids increased -repeat labs Code(s): E87.0 - HYPEROSMOLALITY AND HYPERNATREMIA (6) UTI (urinary tract infection) Assessment/Plan: -seen by ID -ESBL in the urine -isolation precautions -Off IV abx Code(s): N39.0 - URINARY TRACT INFECTION, SITE NOT SPECIFIED (7) DM Assessment/Plan: BGM ENDO
--- NOTE | 2017-12-10 09:41 | PN ---
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 (short form) - Note 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: Neurology History of Present Illness Patient is a 66-year-old female past medical history of anemia, stage IV CAD, dementia, presents to the emergency department today from [facility] with the chief complaint of altered mental status. History per notes as patient is nonverbal. She states that the patient is usually A&Ox3, verbal calling out and aggressive. During my evaluation has been nonverbal, not following commands. CT head was repeated and reviewed and did not show acute changes. Being managed for alerted mental status, toxic metabolic encephalopathy. Has underlying dementia, on Donepezil. Altered mental status, ID following, getting treatment for UTI, on Ceftriaxone. Sinemet restarted, three times per day. Remains somnolent this AM, no significant improvement in mental status. Getting ongoing medical optimization. Active Medications Acetaminophen (Tylenol -) 650 mg PO Q6H PRN PRN Reason: FEVER Last Admin: 12/10/17 05:21 Dose: 650 mg Amlodipine Besylate (Norvasc -) 2.5 mg PO DAILY [facility] Last Admin: 12/09/17 11:08 Dose: 2.5 mg Aspirin (Ecotrin -) 81 mg PO DAILY [facility] Last Admin: 12/09/17 11:07 Dose: 81 mg Atorvastatin Calcium (Lipitor -) 10 mg PO HS [facility] Last Admin: 12/09/17 22:17 Dose: 10 mg Brimonidine Tartrate (Alphagan P 0.1% -) 1 drop OU TID [facility] Last Admin: 12/10/17 06:15 Dose: 1 drop Calcium Carbonate/Cholecalciferol (Os-Isacc 500+D -) 1 tab PO DAILY [facility] Last Admin: 12/09/17 11:08 Dose: 1 tab Carbidopa/Levodopa (Sinemet 25/100 -) 1 each PO TID [facility] Last Admin: 12/10/17 06:11 Dose: 1 each Citalopram Hydrobromide (Celexa -) 10 mg PO DAILY [facility] Last Admin: 12/09/17 11:08 Dose: 10 mg Cyanocobalamin (Vitamin B12 -) 1,000 mcg PO DAILY [facility] Last Admin: 12/09/17 11:07 Dose: 1,000 mcg Docusate Sodium (Colace -) 300 mg PO HS [facility] Last Admin: 12/09/17 22:53 Dose: Not Given Donepezil HCl (Aricept -) 10 mg PO DAILY [facility] Last Admin: 12/09/17 11:07 Dose: 10 mg Dorzolamide HCl (Trusopt 2%) 1 drop OU TID [facility] Last Admin: 12/10/17 06:15 Dose: 1 drop Ferrous Sulfate (Feosol -) 325 mg PO BID [facility] Last Admin: 12/09/17 22:17 Dose: 325 mg Folic Acid (Folic Acid -) 1 mg PO DAILY [facility] Last Admin: 12/09/17 11:07 Dose: 1 mg Dextrose/Sodium Chloride (D5-1/2ns -) 1,000 mls @ 83 mls/hr IV ASDIR [facility] Last Admin: 12/09/17 20:00 Dose: 83 mls/hr Insulin Aspart (Novolog Vial Sliding Scale -) 1 vial SQ TIDAC [facility] PRN Reason: Protocol Last Admin: 12/10/17 06:18 Dose: 3 units Insulin Aspart (Novolog Vial Sliding Scale -) 1 vial SQ HS [facility] PRN Reason: Protocol Last Admin: 12/09/17 22:54 Dose: 3 units Insulin Detemir (Levemir Vial) 10 units SQ HS [facility] Last Admin: 12/09/17 22:17 Dose: 10 units Latanoprost (Xalatan 0.005% Eye Drops -) 1 drop OU HS [facility] Last Admin: 12/09/17 22:54 Dose: 1 drop Pilocarpine HCl (Pilostat 1% -) 1 drop OU QID [facility] Last Admin: 12/09/17 22:23 Dose: 1 drop *Physical Exam Vital Signs Temperature 98.4 F 12/10/17 06:00 Pulse Rate 74 12/10/17 06:00 Respiratory Rate 20 12/10/17 06:00 Blood Pressure 95/56 12/10/17 06:00 O2 Sat by Pulse Oximetry (%) 98 12/09/17 20:44 GENERAL: Well developed, well nourished. Awake and alert to name only. No acute distress. Reaching out of exam bed. HEENT: Normocephalic, atraumatic. PERRLA, EOMI. No conjunctival pallor. Sclera are non- icteric. Moist mucous membranes. Oropharynx is clear. NECK: Supple. Full ROM. No JVD. Carotid pulses 2+ and symmetric, without bruits. No thyromegaly. No lymphadenopathy. CARDIOVASCULAR: Regular rate and rhythm. Systolic murmur II/ along the R and L 2nd/3rd intercostal space . No rubs, or gallops. Distal pulses are 2+ and symmetric. PULMONARY: No evidence of respiratory distress. Lungs clear to auscultation bilaterally. No wheezing, rales or rhonchi. ABDOMINAL: Soft. Non-tender. Non-distended. No rebound or guarding. No organomegaly. Normoactive bowel sounds. MUSCULOSKELETAL Normal range of motion at all joints. No bony deformities or tenderness. No CVA tenderness. EXTREMITIES: No cyanosis. No clubbing. No edema. No calf tenderness. SKIN: Warm and dry. Normal capillary refill. No rashes. No jaundice. NEUROLOGICAL: Unable to perform a neuro exam. Pt. is non-verbal, not responding to commands. Gait was not observed. PSYCHIATRIC: Cooperative. Good eye contact. Appropriate mood and affect. CBCD WBC 8.2 K/mm3 (4.0-10.0) 12/09/17 05:05 RBC 3.17 M/mm3 (3.60-5.2) L 12/09/17 05:05 Hgb 9.7 GM/dL (10.7-15.3) L 12/09/17 05:05 Hct 29.6 % (32.4-45.2) L 12/09/17 05:05 MCV 93.3 fl (80-96) 12/09/17 05:05 MCHC 32.7 g/dl (32.0-36.0) 12/09/17 05:05 RDW 15.0 % (11.6-15.6) 12/09/17 05:05 Plt Count 203 K/MM3 (134-434) 12/09/17 05:05 MPV 8.1 fl (7.5-11.1) 12/09/17 05:05 CMP Sodium 140 mmol/L (136-145) 12/09/17 05:05 Potassium 4.2 mmol/L (3.5-5.1) 12/09/17 05:05 Chloride 106 mmol/L (98-107) 12/09/17 05:05 Carbon Dioxide 24 mmol/L (21-32) 12/09/17 05:05 Anion Gap 10 (8-16) 12/09/17 05:05 BUN 83 mg/dL (7-18) H 12/09/17 05:05 Creatinine 3.3 mg/dL (0.55-1.02) H 12/09/17 05:05 Creat Clearance w eGFR 13.86 (>60) 12/09/17 05:05 Calcium 7.7 mg/dL (8.5-10.1) L 12/09/17 05:05 Total Bilirubin 0.4 mg/dL (0.2-1.0) 12/09/17 05:05 AST 33 U/L (15-37) 12/09/17 05:05 ALT 10 U/L (12-78) L 12/09/17 05:05 Alkaline Phosphatase 65 U/L (45-117) 12/09/17 05:05 Total Protein 5.2 g/dl (6.4-8.2) L 12/09/17 05:05 Albumin 1.8 g/dl (3.4-5.0) L 12/09/17 05:05 CT head reviewed Medical Decision Making 66-year-old female past medical history of anemia, stage IV CAD, dementia, presents to the emergency department today from [facility] with the chief complaint of altered mental status. History per notes as patient is nonverbal. She states that the patient is usually A&Ox3, verbal calling out and aggressive. During my evaluation has been nonverbal, restless. CT head reviewed and did not show acute changes. For underlying dementia, continue on Donepezil. Hemoglobin improved s/p transfusion ID following for UTI Ceftriaxone course completed Continue medical optimization Nephrology follow up regarding hypernatermia and CKD Started sinemet again Continue medical optimization
[2017-12-10] MEDS ORDERED: PT OWN MED DRAWER 7, Y5N ONE (09:49)
[2017-12-10] MEDS: amLODIPine BESYLATE 2.5 MG TABLET (FP) PO SCH (10:23)
[2017-12-10] MEDS: CYANOCOBALAMIN 1,000 MCG TABLET (FP) PO SCH (10:23)
[2017-12-10] MEDS: DONEPEZIL HCL 10 MG TABLET (FP) PO SCH (10:23)
[2017-12-10] MEDS: CITALOPRAM HYDROBROMIDE 10 MG TABLET (FP) PO SCH (10:23)
[2017-12-10] MEDS: ASPIRIN COATED 81 MG TABLET.EC PO SCH (10:23)
[2017-12-10] MEDS: CALCIUM 500MG/VIT-D 200 UNITS COMBO TABLET (FP) PO SCH (10:23)
[2017-12-10] MEDS: FOLIC ACID 1 MG TABLET (FP) PO SCH (10:23)
[2017-12-10] MEDS: FERROUS SO4 325 MG TABLET (FP) PO SCH ×2 (10:23→22:38)
[2017-12-10] MEDS: DEXTROSE 5%-0.45% SALINE 1,000 ML IV SCH ×2 (10:24→16:37)
[2017-12-10] MEDS: PILOCARPINE 1% OPHTHALMIC SOLUTION 15 ML BOTTLE OU SCH ×4 (10:25→23:00)
--- NOTE | 2017-12-10 10:46 | PN ---
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, Physician History of Present Illness: Chart reviewed. Events noted. The patient cannot provide history. Clinically the same. No events. - Current Medication List Current Medications: Active Medications Acetaminophen (Tylenol -) 650 mg PO Q6H PRN PRN Reason: FEVER Last Admin: 12/10/17 05:21 Dose: 650 mg Amlodipine Besylate (Norvasc -) 2.5 mg PO DAILY [facility] Last Admin: 12/10/17 10:23 Dose: Not Given Aspirin (Ecotrin -) 81 mg PO DAILY [facility] Last Admin: 12/10/17 10:23 Dose: 81 mg Atorvastatin Calcium (Lipitor -) 10 mg PO HS [facility] Last Admin: 12/09/17 22:17 Dose: 10 mg Brimonidine Tartrate (Alphagan P 0.1% -) 1 drop OU TID [facility] Last Admin: 12/10/17 06:15 Dose: 1 drop Calcium Carbonate/Cholecalciferol (Os-Isacc 500+D -) 1 tab PO DAILY [facility] Last Admin: 12/10/17 10:23 Dose: 1 tab Carbidopa/Levodopa (Sinemet 25/100 -) 1 each PO TID [facility] Last Admin: 12/10/17 06:11 Dose: 1 each Citalopram Hydrobromide (Celexa -) 10 mg PO DAILY [facility] Last Admin: 12/10/17 10:23 Dose: 10 mg Cyanocobalamin (Vitamin B12 -) 1,000 mcg PO DAILY [facility] Last Admin: 12/10/17 10:23 Dose: 1,000 mcg Docusate Sodium (Colace -) 300 mg PO HS [facility] Last Admin: 12/09/17 22:53 Dose: Not Given Donepezil HCl (Aricept -) 10 mg PO DAILY [facility] Last Admin: 12/10/17 10:23 Dose: 10 mg Dorzolamide HCl (Trusopt 2%) 1 drop OU TID [facility] Last Admin: 12/10/17 06:15 Dose: 1 drop Ferrous Sulfate (Feosol -) 325 mg PO BID [facility] Last Admin: 12/10/17 10:23 Dose: 325 mg Folic Acid (Folic Acid -) 1 mg PO DAILY [facility] Last Admin: 12/10/17 10:23 Dose: 1 mg Dextrose/Sodium Chloride (D5-1/2ns -) 1,000 mls @ 83 mls/hr IV ASDIR [facility] Last Admin: 12/10/17 10:24 Dose: 83 mls/hr Insulin Aspart (Novolog Vial Sliding Scale -) 1 vial SQ TIDAC [facility] PRN Reason: Protocol Last Admin: 12/10/17 06:18 Dose: 3 units Insulin Aspart (Novolog Vial Sliding Scale -) 1 vial SQ HS [facility] PRN Reason: Protocol Last Admin: 12/09/17 22:54 Dose: 3 units Insulin Detemir (Levemir Vial) 10 units SQ HS [facility] Last Admin: 12/09/17 22:17 Dose: 10 units Latanoprost (Xalatan 0.005% Eye Drops -) 1 drop OU HS [facility] Last Admin: 12/09/17 22:54 Dose: 1 drop Pilocarpine HCl (Pilostat 1% -) 1 drop OU QID [facility] Last Admin: 12/10/17 10:25 Dose: 1 drop - Objective Vital Signs: Vital Signs Temperature 98.4 F 12/10/17 06:00 Pulse Rate 74 12/10/17 06:00 Respiratory Rate 20 12/10/17 06:00 Blood Pressure 95/56 12/10/17 06:00 O2 Sat by Pulse Oximetry (%) 98 12/09/17 20:44 Constitutional: Yes: No Distress, Calm, Cachectic, Pallor, Thin Labs: CBC, BMP 12/09/17 05:05 12/09/17 05:05 INR, PTT INR 0.93 (0.82-1.09) 12/09/17 05:05 CBCD WBC 8.2 K/mm3 (4.0-10.0) 12/09/17 05:05 RBC 3.17 M/mm3 (3.60-5.2) L 12/09/17 05:05 Hgb 9.7 GM/dL (10.7-15.3) L 12/09/17 05:05 Hct 29.6 % (32.4-45.2) L 12/09/17 05:05 MCV 93.3 fl (80-96) 12/09/17 05:05 MCHC 32.7 g/dl (32.0-36.0) 12/09/17 05:05 RDW 15.0 % (11.6-15.6) 12/09/17 05:05 Plt Count 203 K/MM3 (134-434) 12/09/17 05:05 MPV 8.1 fl (7.5-11.1) 12/09/17 05:05 CMP Sodium 140 mmol/L (136-145) 12/09/17 05:05 Potassium 4.2 mmol/L (3.5-5.1) 12/09/17 05:05 Chloride 106 mmol/L (98-107) 12/09/17 05:05 Carbon Dioxide 24 mmol/L (21-32) 12/09/17 05:05 Anion Gap 10 (8-16) 12/09/17 05:05 BUN 83 mg/dL (7-18) H 12/09/17 05:05 Creatinine 3.3 mg/dL (0.55-1.02) H 12/09/17 05:05 Creat Clearance w eGFR 13.86 (>60) 12/09/17 05:05 Calcium 7.7 mg/dL (8.5-10.1) L 12/09/17 05:05 Total Bilirubin 0.4 mg/dL (0.2-1.0) 12/09/17 05:05 AST 33 U/L (15-37) 12/09/17 05:05 ALT 10 U/L (12-78) L 12/09/17 05:05 Alkaline Phosphatase 65 U/L (45-117) 12/09/17 05:05 Total Protein 5.2 g/dl (6.4-8.2) L 12/09/17 05:05 Albumin 1.8 g/dl (3.4-5.0) L 12/09/17 05:05 Problem List - Problems (1) BING (acute kidney injury) Code(s): N17.9 - ACUTE KIDNEY FAILURE, UNSPECIFIED (2) Altered mental status Code(s): R41.82 - ALTERED MENTAL STATUS, UNSPECIFIED Qualifiers: Altered mental status type: unspecified Qualified Code(s): R41.82 - Altered mental status, unspecified (3) Anemia Code(s): D64.9 - ANEMIA, UNSPECIFIED Qualifiers: Anemia type: unspecified type Qualified Code(s): D64.9 - Anemia, unspecified (4) Elevated troponin Code(s): R74.8 - ABNORMAL LEVELS OF OTHER SERUM ENZYMES (5) Hypernatremia Code(s): E87.0 - HYPEROSMOLALITY AND HYPERNATREMIA (6) UTI (urinary tract infection) Code(s): N39.0 - URINARY TRACT INFECTION, SITE NOT SPECIFIED Assessment/Plan Alerted mental status Need for adequate hydration. PEG planned for tomorrow. Discussed last week with HCP/Friend No external signs of GI bleeding. ?Anemia 2 CKD. EGD during PEG Aspiration precautions NPO after midnight
--- NOTE | 2017-12-10 13:49 | PN ---
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, Physician History of Present Illness: Pt seen and examined at bedside. No change in status. She is going for a PEG tube. - Current Medication List Current Medications: Active Medications Acetaminophen (Tylenol -) 650 mg PO Q6H PRN PRN Reason: FEVER Last Admin: 12/10/17 05:21 Dose: 650 mg Amlodipine Besylate (Norvasc -) 2.5 mg PO DAILY [facility] Last Admin: 12/10/17 10:23 Dose: Not Given Aspirin (Ecotrin -) 81 mg PO DAILY [facility] Last Admin: 12/10/17 10:23 Dose: 81 mg Atorvastatin Calcium (Lipitor -) 10 mg PO HS [facility] Last Admin: 12/09/17 22:17 Dose: 10 mg Brimonidine Tartrate (Alphagan P 0.1% -) 1 drop OU TID [facility] Last Admin: 12/10/17 13:18 Dose: 1 drop Calcium Carbonate/Cholecalciferol (Os-Isacc 500+D -) 1 tab PO DAILY [facility] Last Admin: 12/10/17 10:23 Dose: 1 tab Carbidopa/Levodopa (Sinemet 25/100 -) 1 each PO TID [facility] Last Admin: 12/10/17 13:20 Dose: 1 each Citalopram Hydrobromide (Celexa -) 10 mg PO DAILY [facility] Last Admin: 12/10/17 10:23 Dose: 10 mg Cyanocobalamin (Vitamin B12 -) 1,000 mcg PO DAILY [facility] Last Admin: 12/10/17 10:23 Dose: 1,000 mcg Docusate Sodium (Colace -) 300 mg PO HS [facility] Last Admin: 12/09/17 22:53 Dose: Not Given Donepezil HCl (Aricept -) 10 mg PO DAILY [facility] Last Admin: 12/10/17 10:23 Dose: 10 mg Dorzolamide HCl (Trusopt 2%) 1 drop OU TID [facility] Last Admin: 12/10/17 13:18 Dose: 1 drop Ferrous Sulfate (Feosol -) 325 mg PO BID [facility] Last Admin: 12/10/17 10:23 Dose: 325 mg Folic Acid (Folic Acid -) 1 mg PO DAILY [facility] Last Admin: 12/10/17 10:23 Dose: 1 mg Dextrose/Sodium Chloride (D5-1/2ns -) 1,000 mls @ 83 mls/hr IV ASDIR [facility] Last Admin: 12/10/17 10:24 Dose: 83 mls/hr Insulin Aspart (Novolog Vial Sliding Scale -) 1 vial SQ TIDAC [facility] PRN Reason: Protocol Last Admin: 12/10/17 12:31 Dose: Not Given Insulin Aspart (Novolog Vial Sliding Scale -) 1 vial SQ HS [facility] PRN Reason: Protocol Last Admin: 12/09/17 22:54 Dose: 3 units Insulin Detemir (Levemir Vial) 10 units SQ HS [facility] Last Admin: 12/09/17 22:17 Dose: 10 units Latanoprost (Xalatan 0.005% Eye Drops -) 1 drop OU HS [facility] Last Admin: 12/09/17 22:54 Dose: 1 drop Pilocarpine HCl (Pilostat 1% -) 1 drop OU QID [facility] Last Admin: 12/10/17 13:18 Dose: 1 drop - Objective Vital Signs: Vital Signs Temperature 97.5 F L 12/10/17 10:00 Pulse Rate 55 L 12/10/17 10:00 Respiratory Rate 20 12/10/17 10:00 Blood Pressure 94/36 12/10/17 10:00 O2 Sat by Pulse Oximetry (%) 98 12/10/17 09:00 Constitutional: Yes: Calm Eyes: Yes: Conjunctiva Clear HENT: Yes: Atraumatic Cardiovascular: Yes: S1, S2 Respiratory: Yes: CTA Bilaterally Gastrointestinal: Yes: Soft Genitourinary: Yes: [place] Present Musculoskeletal: Yes: Muscle Weakness Edema: No Neurological: Yes: Lethargy Labs: CBC, BMP 12/09/17 05:05 12/09/17 05:05 INR, PTT INR 0.93 (0.82-1.09) 12/09/17 05:05 Problem List - Problems (1) BING (acute kidney injury) Code(s): N17.9 - ACUTE KIDNEY FAILURE, UNSPECIFIED (2) Altered mental status Code(s): R41.82 - ALTERED MENTAL STATUS, UNSPECIFIED Qualifiers: Altered mental status type: unspecified Qualified Code(s): R41.82 - Altered mental status, unspecified (3) Hypernatremia Code(s): E87.0 - HYPEROSMOLALITY AND HYPERNATREMIA Assessment/Plan Current Medications Generic Name Dose Route Start Last Admin Trade Name Freq PRN Reason Stop Dose Admin Acetaminophen 650 mg 11/29/17 13:50 12/10/17 05:21 Tylenol - PO 650 mg Q6H PRN Administration FEVER Amlodipine Besylate 2.5 mg 11/30/17 20:00 12/10/17 10:23 Norvasc - PO Not Given DAILY [facility] Aspirin 81 mg 11/29/17 10:00 12/10/17 10:23 Ecotrin - PO 81 mg DAILY [facility] Administration Atorvastatin Calcium 10 mg 11/29/17 22:00 12/09/17 22:17 Lipitor - PO 10 mg HS [facility] Administration Brimonidine Tartrate 1 drop 11/29/17 06:00 12/10/17 13:18 Alphagan P 0.1% - OU 1 drop TID [facility] Administration Calcium Carbonate/Cholecalciferol 1 tab 11/29/17 10:00 12/10/17 10:23 Os-Isacc 500+D - PO 1 tab DAILY [facility] Administration Carbidopa/Levodopa 1 each 12/04/17 14:00 12/10/17 13:20 Sinemet 25/100 - PO 1 each TID [facility] Administration Citalopram Hydrobromide 10 mg 11/29/17 10:00 12/10/17 10:23 Celexa - PO 10 mg DAILY [facility] Administration Cyanocobalamin 1,000 mcg 11/29/17 10:00 12/10/17 10:23 Vitamin B12 - PO 1,000 mcg DAILY [facility] Administration Docusate Sodium 300 mg 11/29/17 22:00 12/09/17 22:53 Colace - PO Not Given HS [facility] Donepezil HCl 10 mg 11/29/17 10:00 12/10/17 10:23 Aricept - PO 10 mg DAILY [facility] Administration Dorzolamide HCl 1 drop 11/29/17 06:00 12/10/17 13:18 Trusopt 2% OU 1 drop TID [facility] Administration Ferrous Sulfate 325 mg 11/29/17 10:00 12/10/17 10:23 Feosol - PO 325 mg BID [facility] Administration Folic Acid 1 mg 11/29/17 10:00 12/10/17 10:23 Folic Acid - PO 1 mg DAILY [facility] Administration Dextrose/Sodium Chloride 1,000 mls @ 83 mls/hr 12/08/17 15:30 12/10/17 10:24 D5-1/2ns - IV 83 mls/hr ASDIR [facility] Administration Insulin Aspart 1 vial 11/29/17 07:00 12/10/17 12:31 Novolog Vial Sliding Scale - SQ Not Given TIDAC [facility] Protocol Insulin Aspart 1 vial 11/29/17 22:00 12/09/17 22:54 Novolog Vial Sliding Scale - SQ 3 units HS [facility] Administration Protocol Insulin Detemir 10 units 11/29/17 22:00 12/09/17 22:17 Levemir Vial SQ 10 units HS [facility] Administration Latanoprost 1 drop 11/29/17 22:00 12/09/17 22:54 Xalatan 0.005% Eye Drops - OU 1 drop HS [facility] Administration Pilocarpine HCl 1 drop 11/29/17 10:00 12/10/17 13:18 Pilostat 1% - OU 1 drop QID [facility] Administration Impression 1. CKD stage 4 2. anemia 3. change in mental status 4. hypernatremia 5. dehydration 6. Parkinson's disease 7. Depression 8. hyperkalemia Plan - check bmp and cbc - cont fluids - pt going for peg - discussed with HCP, pt does not want HD therapy in the future - neuro/psych follow up - anemia workup in progress - renal diet - abx per ID - will follow
[2017-12-10 15:47] LABS: ANION GAP 9 (8-16); BLOOD UREA NITROGEN 79 mg/dL (7-18); CALCIUM 7.8 mg/dL (8.5-10.1); CHLORIDE 108 mmol/L (98-107); CO2 23 mmol/L (21-32); CREATININE 3.5 mg/dL (0.55-1.02); GLUCOSE,RANDOM 163 mg/dL (74-106); POTASSIUM 4.3 mmol/L (3.5-5.1); SODIUM 140 mmol/L (136-145)
--- NOTE | 2017-12-10 15:56 | PN ---
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 (short form) - Note 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: Called pt's brother (HCP) and her friend (2-ry HCP) to obtain formal consent to PEG. Left my cell phone number for call back Problem List - Problems (1) BING (acute kidney injury) Code(s): N17.9 - ACUTE KIDNEY FAILURE, UNSPECIFIED (2) Altered mental status Code(s): R41.82 - ALTERED MENTAL STATUS, UNSPECIFIED Qualifiers: Altered mental status type: unspecified Qualified Code(s): R41.82 - Altered mental status, unspecified (3) Anemia Code(s): D64.9 - ANEMIA, UNSPECIFIED Qualifiers: Anemia type: unspecified type Qualified Code(s): D64.9 - Anemia, unspecified (4) Elevated troponin Code(s): R74.8 - ABNORMAL LEVELS OF OTHER SERUM ENZYMES (5) Hypernatremia Code(s): E87.0 - HYPEROSMOLALITY AND HYPERNATREMIA (6) UTI (urinary tract infection) Code(s): N39.0 - URINARY TRACT INFECTION, SITE NOT SPECIFIED
[2017-12-10] MEDS: DOCUSATE SODIUM 100 MG CAPSULE (FP) PO SCH (22:38)
[2017-12-10] MEDS: ATORVASTATIN CA 10 MG TABLET (FP) PO SCH (22:38)
[2017-12-10] MEDS: INSULIN DETEMIR 100 UNITS/ML MDV SQ SCH (22:43)
[2017-12-10] MEDS: LATANOPROST 0.005% OPHTH SOLN 2.5ML BOTTLE OU SCH (22:44)
[2017-12-11] MEDS: CARBIDOPA/LEVODOPA 25/100 TABLET (FP) PO SCH ×3 (06:04→22:52)
[2017-12-11] MEDS: INSULIN SLIDING SCALE (NOVOLOG) 1 VIAL SQ SCH ×4 (06:07→22:57)
[2017-12-11] MEDS: BRIMONIDINE TARTRATE 0.1% OPHTHALMIC 5 ML BOTTLE OU SCH ×3 (06:08→22:51)
[2017-12-11] MEDS: DORZOLAMIDE 2% HCL OPHTHALMIC SOLUTION 10 ML BOTTLE OU SCH ×3 (06:08→22:50)
[2017-12-11] MEDS: DONEPEZIL HCL 10 MG TABLET (FP) PO SCH (09:05)
[2017-12-11] MEDS: FERROUS SO4 325 MG TABLET (FP) PO SCH ×2 (09:05→22:52)
[2017-12-11] MEDS: PILOCARPINE 1% OPHTHALMIC SOLUTION 15 ML BOTTLE OU SCH ×4 (09:05→22:51)
[2017-12-11] MEDS: CITALOPRAM HYDROBROMIDE 10 MG TABLET (FP) PO SCH (09:05)
[2017-12-11] MEDS: CALCIUM 500MG/VIT-D 200 UNITS COMBO TABLET (FP) PO SCH (09:05)
[2017-12-11] MEDS: amLODIPine BESYLATE 2.5 MG TABLET (FP) PO SCH (09:05)
[2017-12-11] MEDS: ASPIRIN COATED 81 MG TABLET.EC PO SCH (09:05)
[2017-12-11] MEDS: FOLIC ACID 1 MG TABLET (FP) PO SCH (09:05)
[2017-12-11] MEDS: CYANOCOBALAMIN 1,000 MCG TABLET (FP) PO SCH (09:06)
--- NOTE | 2017-12-11 09:23 | PN ---
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, Physician - Current Medication List Current Medications: Active Medications Acetaminophen (Tylenol -) 650 mg PO Q6H PRN PRN Reason: FEVER Last Admin: 12/10/17 22:37 Dose: 650 mg Amlodipine Besylate (Norvasc -) 2.5 mg PO DAILY [facility] Last Admin: 12/11/17 09:05 Dose: Not Given Aspirin (Ecotrin -) 81 mg PO DAILY [facility] Last Admin: 12/11/17 09:05 Dose: Not Given Atorvastatin Calcium (Lipitor -) 10 mg PO [facility] Last Admin: 12/10/17 22:38 Dose: 10 mg Brimonidine Tartrate (Alphagan P 0.1% -) 1 drop OU TID [facility] Last Admin: 12/11/17 06:08 Dose: 1 drop Calcium Carbonate/Cholecalciferol (Os-Isacc 500+D -) 1 tab PO DAILY [facility] Last Admin: 12/11/17 09:05 Dose: Not Given Carbidopa/Levodopa (Sinemet 25/100 -) 1 each PO TID [facility] Last Admin: 12/11/17 06:04 Dose: Not Given Citalopram Hydrobromide (Celexa -) 10 mg PO DAILY [facility] Last Admin: 12/11/17 09:05 Dose: Not Given Cyanocobalamin (Vitamin B12 -) 1,000 mcg PO DAILY [facility] Last Admin: 12/11/17 09:06 Dose: Not Given Docusate Sodium (Colace -) 300 mg PO [facility] Last Admin: 12/10/17 22:38 Dose: Not Given Donepezil HCl (Aricept -) 10 mg PO DAILY [facility] Last Admin: 12/11/17 09:05 Dose: Not Given Dorzolamide HCl (Trusopt 2%) 1 drop OU TID [facility] Last Admin: 12/11/17 06:08 Dose: 1 drop Ferrous Sulfate (Feosol -) 325 mg PO BID [facility] Last Admin: 12/11/17 09:05 Dose: Not Given Folic Acid (Folic Acid -) 1 mg PO DAILY [facility] Last Admin: 12/11/17 09:05 Dose: Not Given Dextrose/Sodium Chloride (D5-1/2ns -) 1,000 mls @ 83 mls/hr IV ASDIR [facility] Last Admin: 12/10/17 16:37 Dose: Not Given Insulin Aspart (Novolog Vial Sliding Scale -) 1 vial SQ TIDAC [facility] PRN Reason: Protocol Last Admin: 12/11/17 06:07 Dose: Not Given Insulin Aspart (Novolog Vial Sliding Scale -) 1 vial SQ HS [facility] PRN Reason: Protocol Last Admin: 12/10/17 22:44 Dose: 6 units Insulin Detemir (Levemir Vial) 10 units SQ HS [facility] Last Admin: 12/10/17 22:43 Dose: 10 units Latanoprost (Xalatan 0.005% Eye Drops -) 1 drop OU HS [facility] Last Admin: 12/10/17 22:44 Dose: 1 drop Pilocarpine HCl (Pilostat 1% -) 1 drop OU QID [facility] Last Admin: 12/11/17 09:05 Dose: 1 drop - Objective Vital Signs: Vital Signs Temperature 98.1 F 12/11/17 05:50 Pulse Rate 80 12/11/17 05:50 Respiratory Rate 18 12/11/17 05:50 Blood Pressure 127/41 12/11/17 05:50 O2 Sat by Pulse Oximetry (%) 97 12/11/17 05:50 Cardiovascular: Yes: S1, S2 Respiratory: Yes: Regular, CTA Bilaterally Gastrointestinal: Yes: Normal Bowel Sounds, Soft Labs: CBC, BMP 12/09/17 05:05 12/10/17 14:50 INR, PTT INR 0.93 (0.82-1.09) 12/09/17 05:05 Problem List - Problems (1) BING (acute kidney injury) Code(s): N17.9 - ACUTE KIDNEY FAILURE, UNSPECIFIED (2) Altered mental status Code(s): R41.82 - ALTERED MENTAL STATUS, UNSPECIFIED Qualifiers: Altered mental status type: unspecified Qualified Code(s): R41.82 - Altered mental status, unspecified (3) Anemia Code(s): D64.9 - ANEMIA, UNSPECIFIED Qualifiers: Anemia type: unspecified type Qualified Code(s): D64.9 - Anemia, unspecified (4) Elevated troponin Code(s): R74.8 - ABNORMAL LEVELS OF OTHER SERUM ENZYMES Assessment/Plan - Problems (1) BING (acute kidney injury) Assessment/Plan: -seen by nephrology -chronic -K HIGH--GIVE KAYAXELATE Code(s): N17.9 - ACUTE KIDNEY FAILURE, UNSPECIFIED (2) Altered mental status Assessment/Plan: -underlying dementia, exacerbated mental status 2/2 to acute infection Code(s): R41.82 - ALTERED MENTAL STATUS, UNSPECIFIED Qualifiers: Altered mental status type: unspecified Qualified Code(s): R41.82 - Altered mental status, unspecified (3) Anemia Assessment/Plan: -prbc given -monitor h/h -hematology consult -GI F/U--EGD Code(s): D64.9 - ANEMIA, UNSPECIFIED Qualifiers: Anemia type: unspecified type Qualified Code(s): D64.9 - Anemia, unspecified (4) Poor Oral Intake--Dehydration Assessment/Plan: needs peg to maintain hydration gi eval (5) Hypernatremia Assessment/Plan: -seen by nephrology -hypotonic fluids increased -repeat labs Code(s): E87.0 - HYPEROSMOLALITY AND HYPERNATREMIA (6) UTI (urinary tract infection) Assessment/Plan: -seen by ID -ESBL in the urine -isolation precautions -Off IV abx Code(s): N39.0 - URINARY TRACT INFECTION, SITE NOT SPECIFIED (7) DM Assessment/Plan: BGM ENDO
--- NOTE | 2017-12-11 09:26 | PN ---
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 (short form) - Note 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: Neurology History of Present Illness Patient is a 66-year-old female past medical history of anemia, stage IV CAD, dementia, presents to the emergency department today from [facility] with the chief complaint of altered mental status. History per notes as patient is nonverbal. She states that the patient is usually A&Ox3, verbal calling out and aggressive. During my evaluation has been nonverbal, not following commands. CT head was repeated and reviewed and did not show acute changes. Being managed for alerted mental status, toxic metabolic encephalopathy. Has underlying dementia, on Donepezil. Altered mental status, ID following, getting treatment for UTI, on Ceftriaxone. Sinemet restarted, three times per day. Remains somnolent this AM, but is arousable during the day. Is scheduled for PEG placement today. Active Medications Acetaminophen (Tylenol -) 650 mg PO Q6H PRN PRN Reason: FEVER Last Admin: 12/10/17 22:37 Dose: 650 mg Amlodipine Besylate (Norvasc -) 2.5 mg PO DAILY [facility] Last Admin: 12/11/17 09:05 Dose: Not Given Aspirin (Ecotrin -) 81 mg PO DAILY [facility] Last Admin: 12/11/17 09:05 Dose: Not Given Atorvastatin Calcium (Lipitor -) 10 mg PO HS [facility] Last Admin: 12/10/17 22:38 Dose: 10 mg Brimonidine Tartrate (Alphagan P 0.1% -) 1 drop OU TID [facility] Last Admin: 12/11/17 06:08 Dose: 1 drop Calcium Carbonate/Cholecalciferol (Os-Isacc 500+D -) 1 tab PO DAILY [facility] Last Admin: 12/11/17 09:05 Dose: Not Given Carbidopa/Levodopa (Sinemet 25/100 -) 1 each PO TID [facility] Last Admin: 12/11/17 06:04 Dose: Not Given Citalopram Hydrobromide (Celexa -) 10 mg PO DAILY [facility] Last Admin: 12/11/17 09:05 Dose: Not Given Cyanocobalamin (Vitamin B12 -) 1,000 mcg PO DAILY [facility] Last Admin: 12/11/17 09:06 Dose: Not Given Docusate Sodium (Colace -) 300 mg PO HS [facility] Last Admin: 12/10/17 22:38 Dose: Not Given Donepezil HCl (Aricept -) 10 mg PO DAILY [facility] Last Admin: 12/11/17 09:05 Dose: Not Given Dorzolamide HCl (Trusopt 2%) 1 drop OU TID [facility] Last Admin: 12/11/17 06:08 Dose: 1 drop Ferrous Sulfate (Feosol -) 325 mg PO BID [facility] Last Admin: 12/11/17 09:05 Dose: Not Given Folic Acid (Folic Acid -) 1 mg PO DAILY [facility] Last Admin: 12/11/17 09:05 Dose: Not Given Dextrose/Sodium Chloride (D5-1/2ns -) 1,000 mls @ 83 mls/hr IV ASDIR [facility] Last Admin: 12/10/17 16:37 Dose: Not Given Insulin Aspart (Novolog Vial Sliding Scale -) 1 vial SQ TIDAC [facility] PRN Reason: Protocol Last Admin: 12/11/17 06:07 Dose: Not Given Insulin Aspart (Novolog Vial Sliding Scale -) 1 vial SQ HS [facility] PRN Reason: Protocol Last Admin: 12/10/17 22:44 Dose: 6 units Insulin Detemir (Levemir Vial) 10 units SQ HS [facility] Last Admin: 12/10/17 22:43 Dose: 10 units Latanoprost (Xalatan 0.005% Eye Drops -) 1 drop OU HS [facility] Last Admin: 12/10/17 22:44 Dose: 1 drop Pilocarpine HCl (Pilostat 1% -) 1 drop OU QID [facility] Last Admin: 12/11/17 09:05 Dose: 1 drop *Physical Exam Vital Signs Period Temp Pulse Resp BP Sys/Rose Pulse Ox Last 24 Hr 97.5 F-98.7 F 55-80 18-20 94-127/36-62 97-97 GENERAL: Well developed, well nourished. Awake and alert to name only. No acute distress. Reaching out of exam bed. HEENT: Normocephalic, atraumatic. PERRLA, EOMI. No conjunctival pallor. Sclera are non- icteric. Moist mucous membranes. Oropharynx is clear. NECK: Supple. Full ROM. No JVD. Carotid pulses 2+ and symmetric, without bruits. No thyromegaly. No lymphadenopathy. CARDIOVASCULAR: Regular rate and rhythm. Systolic murmur II/ along the R and L 2nd/3rd intercostal space . No rubs, or gallops. Distal pulses are 2+ and symmetric. PULMONARY: No evidence of respiratory distress. Lungs clear to auscultation bilaterally. No wheezing, rales or rhonchi. ABDOMINAL: Soft. Non-tender. Non-distended. No rebound or guarding. No organomegaly. Normoactive bowel sounds. MUSCULOSKELETAL Normal range of motion at all joints. No bony deformities or tenderness. No CVA tenderness. EXTREMITIES: No cyanosis. No clubbing. No edema. No calf tenderness. SKIN: Warm and dry. Normal capillary refill. No rashes. No jaundice. NEUROLOGICAL: Unable to perform a neuro exam. Pt. is non-verbal, not responding to commands. Gait was not observed. PSYCHIATRIC: Cooperative. Good eye contact. Appropriate mood and affect. CBCD WBC 8.2 K/mm3 (4.0-10.0) 12/09/17 05:05 RBC 3.17 M/mm3 (3.60-5.2) L 12/09/17 05:05 Hgb 9.7 GM/dL (10.7-15.3) L 12/09/17 05:05 Hct 29.6 % (32.4-45.2) L 12/09/17 05:05 MCV 93.3 fl (80-96) 12/09/17 05:05 MCHC 32.7 g/dl (32.0-36.0) 12/09/17 05:05 RDW 15.0 % (11.6-15.6) 12/09/17 05:05 Plt Count 203 K/MM3 (134-434) 12/09/17 05:05 MPV 8.1 fl (7.5-11.1) 12/09/17 05:05 CMP Sodium 140 mmol/L (136-145) 12/10/17 14:50 Potassium 4.3 mmol/L (3.5-5.1) 12/10/17 14:50 Chloride 108 mmol/L (98-107) H 12/10/17 14:50 Carbon Dioxide 23 mmol/L (21-32) 12/10/17 14:50 Anion Gap 9 (8-16) 12/10/17 14:50 BUN 79 mg/dL (7-18) H 12/10/17 14:50 Creatinine 3.5 mg/dL (0.55-1.02) H 12/10/17 14:50 Creat Clearance w eGFR 13.86 (>60) 12/09/17 05:05 Calcium 7.8 mg/dL (8.5-10.1) L 12/10/17 14:50 Total Bilirubin 0.4 mg/dL (0.2-1.0) 12/09/17 05:05 AST 33 U/L (15-37) 12/09/17 05:05 ALT 10 U/L (12-78) L 12/09/17 05:05 Alkaline Phosphatase 65 U/L (45-117) 12/09/17 05:05 Total Protein 5.2 g/dl (6.4-8.2) L 12/09/17 05:05 Albumin 1.8 g/dl (3.4-5.0) L 12/09/17 05:05 CT head reviewed Medical Decision Making 66-year-old female past medical history of anemia, stage IV CAD, dementia, presents to the emergency department today from [facility] with the chief complaint of altered mental status. History per notes as patient is nonverbal. She states that the patient is usually A&Ox3, verbal calling out and aggressive. During my evaluation has been nonverbal, restless. CT head reviewed and did not show acute changes. For underlying dementia, continue on Donepezil. Had superimposed AMS 2/2 infection Ceftriaxone course completed Continue medical optimization Nephrology follow up regarding hypernatermia and CKD Started sinemet again For peg placement, GI note reviewed Continue medical optimization
[2017-12-11] MEDS ORDERED: ETOMIDATE 20 MG/10 ML AMPUL IVPUSH ONE (10:24)
[2017-12-11] MEDS ORDERED: PROPOFOL 20 ML ONE ×2 (10:24)
[2017-12-11] MEDS ORDERED: ePHEDrine SULFATE 50 MG/1 ML AMPULE ONE (10:24)
--- NOTE | 2017-12-11 11:17 | PROC ---
Endoscopy Procedure Endoscopy procedure completed. Please see scanned procedure report. s/p PEG Please follow PEG instructions
--- NOTE | 2017-12-11 15:59 | PN ---
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, Physician History of Present Illness: Pt seen and examined at bedside. She had the peg placed today. - Current Medication List Current Medications: Active Medications Acetaminophen (Tylenol -) 650 mg PO Q6H PRN PRN Reason: FEVER Last Admin: 12/10/17 22:37 Dose: 650 mg Amlodipine Besylate (Norvasc -) 2.5 mg PO DAILY [facility] Last Admin: 12/11/17 09:05 Dose: Not Given Aspirin (Ecotrin -) 81 mg PO DAILY [facility] Last Admin: 12/11/17 09:05 Dose: Not Given Atorvastatin Calcium (Lipitor -) 10 mg PO HS [facility] Last Admin: 12/10/17 22:38 Dose: 10 mg Brimonidine Tartrate (Alphagan P 0.1% -) 1 drop OU TID [facility] Last Admin: 12/11/17 13:51 Dose: 1 drop Calcium Carbonate/Cholecalciferol (Os-Isacc 500+D -) 1 tab PO DAILY [facility] Last Admin: 12/11/17 09:05 Dose: Not Given Carbidopa/Levodopa (Sinemet 25/100 -) 1 each PO TID [facility] Last Admin: 12/11/17 13:51 Dose: Not Given Citalopram Hydrobromide (Celexa -) 10 mg PO DAILY [facility] Last Admin: 12/11/17 09:05 Dose: Not Given Cyanocobalamin (Vitamin B12 -) 1,000 mcg PO DAILY [facility] Last Admin: 12/11/17 09:06 Dose: Not Given Docusate Sodium (Colace -) 300 mg PO [facility] Last Admin: 12/10/17 22:38 Dose: Not Given Donepezil HCl (Aricept -) 10 mg PO DAILY [facility] Last Admin: 12/11/17 09:05 Dose: Not Given Dorzolamide HCl (Trusopt 2%) 1 drop OU TID [facility] Last Admin: 12/11/17 13:51 Dose: 1 drop Ferrous Sulfate (Feosol -) 325 mg PO BID [facility] Last Admin: 12/11/17 09:05 Dose: Not Given Folic Acid (Folic Acid -) 1 mg PO DAILY [facility] Last Admin: 12/11/17 09:05 Dose: Not Given Dextrose/Sodium Chloride (D5-1/2ns -) 1,000 mls @ 83 mls/hr IV ASDIR [facility] Last Admin: 12/10/17 16:37 Dose: Not Given Insulin Aspart (Novolog Vial Sliding Scale -) 1 vial SQ TIDAC [facility] PRN Reason: Protocol Last Admin: 12/11/17 10:09 Dose: Not Given Insulin Aspart (Novolog Vial Sliding Scale -) 1 vial SQ HS [facility] PRN Reason: Protocol Last Admin: 12/10/17 22:44 Dose: 6 units Insulin Detemir (Levemir Vial) 10 units SQ HS [facility] Last Admin: 12/10/17 22:43 Dose: 10 units Latanoprost (Xalatan 0.005% Eye Drops -) 1 drop OU HS [facility] Last Admin: 12/10/17 22:44 Dose: 1 drop Pilocarpine HCl (Pilostat 1% -) 1 drop OU QID [facility] Last Admin: 12/11/17 13:51 Dose: 1 drop - Objective Vital Signs: Vital Signs Temperature 97.5 F L 12/11/17 11:17 Pulse Rate 61 12/11/17 12:05 Respiratory Rate 20 12/11/17 12:05 Blood Pressure 115/58 12/11/17 12:05 O2 Sat by Pulse Oximetry (%) 100 12/11/17 12:05 Constitutional: Yes: Calm Eyes: Yes: Conjunctiva Clear HENT: Yes: Atraumatic Cardiovascular: Yes: S1, S2 Respiratory: Yes: CTA Bilaterally Gastrointestinal: Yes: Soft, Other (s/p peg) Genitourinary: Yes: Incontinence Musculoskeletal: Yes: Muscle Weakness Edema: No Neurological: Yes: Lethargy Labs: CBC, BMP 12/09/17 05:05 12/10/17 14:50 INR, PTT INR 0.93 (0.82-1.09) 12/09/17 05:05 Problem List - Problems (1) BING (acute kidney injury) Code(s): N17.9 - ACUTE KIDNEY FAILURE, UNSPECIFIED (2) Altered mental status Code(s): R41.82 - ALTERED MENTAL STATUS, UNSPECIFIED Qualifiers: Altered mental status type: unspecified Qualified Code(s): R41.82 - Altered mental status, unspecified (3) Hypernatremia Code(s): E87.0 - HYPEROSMOLALITY AND HYPERNATREMIA Assessment/Plan Current Medications Generic Name Dose Route Start Last Admin Trade Name Freq PRN Reason Stop Dose Admin Acetaminophen 650 mg 11/29/17 13:50 12/10/17 22:37 Tylenol - PO 650 mg Q6H PRN Administration FEVER Amlodipine Besylate 2.5 mg 11/30/17 20:00 12/11/17 09:05 Norvasc - PO Not Given DAILY [facility] Aspirin 81 mg 11/29/17 10:00 12/11/17 09:05 Ecotrin - PO Not Given DAILY [facility] Atorvastatin Calcium 10 mg 11/29/17 22:00 12/10/17 22:38 Lipitor - PO 10 mg HS [facility] Administration Brimonidine Tartrate 1 drop 11/29/17 06:00 12/11/17 13:51 Alphagan P 0.1% - OU 1 drop TID [facility] Administration Calcium Carbonate/Cholecalciferol 1 tab 11/29/17 10:00 12/11/17 09:05 Os-Isacc 500+D - PO Not Given DAILY [facility] Carbidopa/Levodopa 1 each 12/04/17 14:00 12/11/17 13:51 Sinemet 25/100 - PO Not Given TID [facility] Citalopram Hydrobromide 10 mg 11/29/17 10:00 12/11/17 09:05 Celexa - PO Not Given DAILY [facility] Cyanocobalamin 1,000 mcg 11/29/17 10:00 12/11/17 09:06 Vitamin B12 - PO Not Given DAILY [facility] Docusate Sodium 300 mg 11/29/17 22:00 12/10/17 22:38 Colace - PO Not Given HS [facility] Donepezil HCl 10 mg 11/29/17 10:00 12/11/17 09:05 Aricept - PO Not Given DAILY [facility] Dorzolamide HCl 1 drop 11/29/17 06:00 12/11/17 13:51 Trusopt 2% OU 1 drop TID [facility] Administration Ferrous Sulfate 325 mg 11/29/17 10:00 12/11/17 09:05 Feosol - PO Not Given BID [facility] Folic Acid 1 mg 11/29/17 10:00 12/11/17 09:05 Folic Acid - PO Not Given DAILY [facility] Dextrose/Sodium Chloride 1,000 mls @ 83 mls/hr 12/08/17 15:30 12/10/17 16:37 D5-1/2ns - IV Not Given ASDIR [facility] Insulin Aspart 1 vial 11/29/17 07:00 12/11/17 10:09 Novolog Vial Sliding Scale - SQ Not Given TIDAC [facility] Protocol Insulin Aspart 1 vial 11/29/17 22:00 12/10/17 22:44 Novolog Vial Sliding Scale - SQ 6 units HS [facility] Administration Protocol Insulin Detemir 10 units 11/29/17 22:00 12/10/17 22:43 Levemir Vial SQ 10 units HS [facility] Administration Latanoprost 1 drop 11/29/17 22:00 12/10/17 22:44 Xalatan 0.005% Eye Drops - OU 1 drop HS [facility] Administration Pilocarpine HCl 1 drop 11/29/17 10:00 12/11/17 13:51 Pilostat 1% - OU 1 drop QID [facility] Administration Impression 1. CKD stage 4 2. anemia 3. change in mental status 4. hypernatremia 5. dehydration 6. Parkinson's disease 7. Depression 8. hyperkalemia Plan - use nepro for feeds - stop fluids once tolerating feeds - repeat labs in am - peg care - renal diet - abx per ID - will follow
[2017-12-11] MEDS: DEXTROSE 5%-0.45% SALINE 1,000 ML IV SCH (17:00)
[2017-12-11] MEDS ORDERED: PT OWN MED DRAWER 7, Y5N ONE (22:18)
[2017-12-11] MEDS: LATANOPROST 0.005% OPHTH SOLN 2.5ML BOTTLE OU SCH (22:50)
[2017-12-11] MEDS: DOCUSATE SODIUM 100 MG CAPSULE (FP) PO SCH (22:52)
[2017-12-11] MEDS: ATORVASTATIN CA 10 MG TABLET (FP) PO SCH (22:52)
[2017-12-11] MEDS: INSULIN DETEMIR 100 UNITS/ML MDV SQ SCH (22:57)
--- NOTE | 2017-12-12 01:27 | CONSULT ---
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, 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 Cardio/Vascular: Yes: Hyperlipdemia Renal/: Yes: Renal Failure (chronic stage 4 ) ...: No Psych: Yes: Depression Endocrine: Yes: Diabetes Mellitus Additional Medical History: Glaucoma - Alcohol/Substance Use Hx Alcohol Use: No (unknown) - Smoking History Smoking history: Unknown if ever smoked Have you smoked in the past 12 months: No Home Medications - Allergies Allergies/Adverse Reactions: Allergies Allergy/AdvReac Type Severity Reaction Status Date / Time No Known Allergies Allergy Verified 11/28/17 11:40 - Home Medications Home Medications: Ambulatory Orders Aspirin [Aspirin EC] 81 mg PO DAILY 11/28/17 Brimonidine Tartrate [Alphagan P 0.1% -] 1 drop OU TID 11/28/17 Calcium Carbonate/Vitamin D3 [Calcium 500 + Vit D 200 Caplet] 1 each PO DAILY Carbidopa/Levodopa 25/100 [Sinemet 25/100 -] 1 each PO TID 11/28/17 Citalopram Hydrobromide [Celexa -] 10 mg PO DAILY 11/28/17 Clonazepam [Klonopin -] 0.5 mg PO BID 11/28/17 Cyanocobalamin (Vitamin B-12) [Vitamin B-12] 1,000 mcg PO DAILY 11/28/17 Docusate Sodium 300 mg PO HS 11/28/17 Donepezil HCl [Aricept] 10 mg PO DAILY 11/28/17 Dorzolamide HCl [Trusopt 2%] 1 drop OU TID 11/28/17 Ferrous Sulfate 325 mg PO BID 11/28/17 Folic Acid 1 mg PO DAILY 11/28/17 Glimepiride 1 mg PO DAILY 11/28/17 Haloperidol 0.5 mg PO HS 11/28/17 Insulin Glargine,Hum.rec.anlog [Lantus] 20 unit SQ HS 11/28/17 Latanoprost 0.005% Eye Drops [Xalatan 0.005% Eye Drops -] 1 drop OU HS 11/28/17 Pilocarpine 1% [Pilostat 1% -] 1 drop OU QID 11/28/17 Simvastatin [Zocor -] 20 mg PO HS 11/28/17 Sodium Chloride [Saline Nose Farley] 1 spray NS BID 11/28/17 Physical Exam Vital Signs: Vital Signs Temperature 98 F 12/11/17 20:47 Pulse Rate 68 12/11/17 20:47 Respiratory Rate 18 12/11/17 21:00 Blood Pressure 132/80 12/11/17 20:47 O2 Sat by Pulse Oximetry (%) 98 12/11/17 21:00 Constitutional: Yes: Anxious, Mild Distress Eyes: Yes: EOM Intact HENT: Yes: Normocephalic Neck: Yes: Trachea Midline Cardiovascular: Yes: Regular Rate and Rhythm Respiratory: Yes: CTA Bilaterally Gastrointestinal: Yes: Normal Bowel Sounds ...Rectal Exam: Yes: Deferred Renal/: Yes: WNL Musculoskeletal: Yes: Back Pain, Muscle Weakness Edema: No Neurological: Yes: Alert, Confusion, Weakness Labs: CBC, BMP 12/09/17 05:05 12/10/17 14:50 Problem List - Problems (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 Code(s): E11.22 - TYPE 2 DIABETES MELLITUS W DIABETIC CHRONIC KIDNEY DISEASE (2) Altered mental status Code(s): R41.82 - ALTERED MENTAL STATUS, UNSPECIFIED Qualifiers: Altered mental status type: unspecified Qualified Code(s): R41.82 - Altered mental status, unspecified (3) Elevated troponin Code(s): R74.8 - ABNORMAL LEVELS OF OTHER SERUM ENZYMES (4) Hypernatremia Code(s): E87.0 - HYPEROSMOLALITY AND HYPERNATREMIA (5) UTI (urinary tract infection) Code(s): N39.0 - URINARY TRACT INFECTION, SITE NOT SPECIFIED Assessment/Plan Current Active Problems BING (acute kidney injury) (Acute) Altered mental status (Acute) Anemia (Acute) Elevated troponin (Acute) Hypernatremia (Acute) UTI (urinary tract infection) (Acute) dm ckd diabetic nephropathy Laboratory Results - last 24 hr 12/11/17 12/11/17 12/11/17 06:06 16:50 22:56 POC Glucometer 211 220 288 Laboratory Tests 12/09/17 12/09/17 12/10/17 05:05 05:05 14:50 WBC 8.2 RBC 3.17 L Hgb 9.7 L Hct 29.6 L MCV 93.3 MCH 30.5 RDW 15.0 Plt Count 203 MPV 8.1 Sodium 140 Potassium 4.3 Chloride 108 H Carbon Dioxide 23 Anion Gap 9 BUN 79 H Creatinine 3.5 H POC Glucometer Random Glucose 163 H Calcium 7.7 L 7.8 L Total Protein 5.2 L Albumin 1.8 L 12/10/17 16:18 WBC RBC Hgb Hct MCV MCH RDW Plt Count MPV Sodium Potassium Chloride Carbon Dioxide Anion Gap BUN Creatinine POC Glucometer 133 Random Glucose Calcium Total Protein Albumin plan: bgm qid novolog insulin dose titrate for nurtition supplements levemir 10 units am ck tsh free t4 [id number]
[2017-12-12] MEDS: DORZOLAMIDE 2% HCL OPHTHALMIC SOLUTION 10 ML BOTTLE OU SCH ×3 (06:59→21:52)
[2017-12-12] MEDS: BRIMONIDINE TARTRATE 0.1% OPHTHALMIC 5 ML BOTTLE OU SCH ×3 (06:59→21:52)
[2017-12-12] MEDS: CARBIDOPA/LEVODOPA 25/100 TABLET (FP) PO SCH ×3 (07:00→21:53)
[2017-12-12] MEDS: INSULIN SLIDING SCALE (NOVOLOG) 1 VIAL SQ SCH ×4 (07:04→21:56)
[2017-12-12] MEDS: INSULIN DETEMIR 100 UNITS/ML MDV SQ SCH (07:04)
[2017-12-12 07:20] LABS: BASO % 0.2 % (0-2.0); HEMATOCRIT 26.2 % (32.4-45.2); HEMOGLOBIN 8.8 GM/dL (10.7-15.3); LYMPH % 9.1 % (8-40); MCH 31.2 pg (25.7-33.7); MCHC 33.4 g/dl (32.0-36.0); MEAN CELL VOLUME 93.2 fl (80-96); MONO % 5.1 % (3.8-10.2); NEUT % 83.6 % (42.8-82.8); PLATELET COUNT 205 K/MM3 (134-434); RBC 2.81 M/mm3 (3.60-5.2); RDW 14.6 % (11.6-15.6); WHITE BLOOD COUNT 5.6 K/mm3 (4.0-10.0)
[2017-12-12 07:58] LABS: CHLORIDE 109 mmol/L (98-107); POTASSIUM 3.8 mmol/L (3.5-5.1); SODIUM 140 mmol/L (136-145)
[2017-12-12 08:09] LABS: ALBUMIN 1.7 g/dl (3.4-5.0); ALK PHOS 74 U/L (45-117); ANION GAP 11 (8-16); BILIRUBIN,TOTAL 0.5 mg/dL (0.2-1.0); BLOOD UREA NITROGEN 61 mg/dL (7-18); CALCIUM 7.6 mg/dL (8.5-10.1); CO2 20 mmol/L (21-32); CREATININE 2.8 mg/dL (0.55-1.02); GLUCOSE,RANDOM 123 mg/dL (74-106); SGOT/AST 27 U/L (15-37); SGPT/ALT 11 U/L (12-78); TOT PROT 4.9 g/dl (6.4-8.2)
--- NOTE | 2017-12-12 08:45 | PN ---
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, Physician History of Present Illness: PEG intact. No events overnight. Afebrile, benign abdomen. - Current Medication List Current Medications: Active Medications Acetaminophen (Tylenol -) 650 mg PO Q6H PRN PRN Reason: FEVER Last Admin: 12/10/17 22:37 Dose: 650 mg Amlodipine Besylate (Norvasc -) 2.5 mg PO DAILY [facility] Last Admin: 12/11/17 09:05 Dose: Not Given Aspirin (Ecotrin -) 81 mg PO DAILY [facility] Last Admin: 12/11/17 09:05 Dose: Not Given Atorvastatin Calcium (Lipitor -) 10 mg PO HS [facility] Last Admin: 12/11/17 22:52 Dose: 10 mg Brimonidine Tartrate (Alphagan P 0.1% -) 1 drop OU TID [facility] Last Admin: 12/12/17 06:59 Dose: 1 drop Calcium Carbonate/Cholecalciferol (Os-Isacc 500+D -) 1 tab PO DAILY [facility] Last Admin: 12/11/17 09:05 Dose: Not Given Carbidopa/Levodopa (Sinemet 25/100 -) 1 each PO TID [facility] Last Admin: 12/12/17 07:00 Dose: 1 each Citalopram Hydrobromide (Celexa -) 10 mg PO DAILY [facility] Last Admin: 12/11/17 09:05 Dose: Not Given Cyanocobalamin (Vitamin B12 -) 1,000 mcg PO DAILY [facility] Last Admin: 12/11/17 09:06 Dose: Not Given Docusate Sodium (Colace -) 300 mg PO [facility] Last Admin: 12/11/17 22:52 Dose: 300 mg Donepezil HCl (Aricept -) 10 mg PO DAILY [facility] Last Admin: 12/11/17 09:05 Dose: Not Given Dorzolamide HCl (Trusopt 2%) 1 drop OU TID [facility] Last Admin: 12/12/17 06:59 Dose: 1 drop Ferrous Sulfate (Feosol -) 325 mg PO BID [facility] Last Admin: 12/11/17 22:52 Dose: 325 mg Folic Acid (Folic Acid -) 1 mg PO DAILY [facility] Last Admin: 12/11/17 09:05 Dose: Not Given Dextrose/Sodium Chloride (D5-1/2ns -) 1,000 mls @ 83 mls/hr IV ASDIR [facility] Last Admin: 12/11/17 17:00 Dose: 83 mls/hr Insulin Aspart (Novolog Vial Sliding Scale -) 1 vial SQ TIDAC [facility] PRN Reason: Protocol Last Admin: 12/12/17 07:04 Dose: Not Given Insulin Aspart (Novolog Vial Sliding Scale -) 1 vial SQ HS [facility] PRN Reason: Protocol Last Admin: 12/11/17 22:57 Dose: 3 units Insulin Detemir (Levemir Vial) 10 units SQ AM [facility] Last Admin: 12/12/17 07:04 Dose: Not Given Latanoprost (Xalatan 0.005% Eye Drops -) 1 drop OU HS [facility] Last Admin: 12/11/17 22:50 Dose: 1 drop Pilocarpine HCl (Pilostat 1% -) 1 drop OU QID [facility] Last Admin: 12/11/17 22:51 Dose: 1 drop - Objective Vital Signs: Vital Signs Temperature 97.7 F 12/12/17 02:00 Pulse Rate 59 L 12/12/17 06:00 Respiratory Rate 18 12/12/17 06:00 Blood Pressure 112/54 12/12/17 06:00 O2 Sat by Pulse Oximetry (%) 98 12/11/17 21:00 Constitutional: Yes: No Distress, Calm Gastrointestinal: Yes: Normal Bowel Sounds, Soft, Other (PEG intact. @3.5-4. No leak, bleeding, erythema). No: Distention Labs: CBC, BMP 12/12/17 06:55 INR, PTT INR 0.93 (0.82-1.09) 12/09/17 05:05 CBCD WBC 5.6 K/mm3 (4.0-10.0) D 12/12/17 06:55 RBC 2.81 M/mm3 (3.60-5.2) L 12/12/17 06:55 Hgb 8.8 GM/dL (10.7-15.3) L 12/12/17 06:55 Hct 26.2 % (32.4-45.2) L 12/12/17 06:55 MCV 93.2 fl (80-96) 12/12/17 06:55 MCHC 33.4 g/dl (32.0-36.0) 12/12/17 06:55 RDW 14.6 % (11.6-15.6) 12/12/17 06:55 Plt Count 205 K/MM3 (134-434) 12/12/17 06:55 MPV 8.0 fl (7.5-11.1) 12/12/17 06:55 CMP Sodium 140 mmol/L (136-145) 12/10/17 14:50 Potassium 4.3 mmol/L (3.5-5.1) 12/10/17 14:50 Chloride 108 mmol/L (98-107) H 12/10/17 14:50 Carbon Dioxide 23 mmol/L (21-32) 12/10/17 14:50 Anion Gap 9 (8-16) 12/10/17 14:50 BUN 79 mg/dL (7-18) H 12/10/17 14:50 Creatinine 3.5 mg/dL (0.55-1.02) H 12/10/17 14:50 Creat Clearance w eGFR 13.86 (>60) 12/09/17 05:05 Calcium 7.8 mg/dL (8.5-10.1) L 12/10/17 14:50 Total Bilirubin 0.4 mg/dL (0.2-1.0) 12/09/17 05:05 AST 33 U/L (15-37) 12/09/17 05:05 ALT 10 U/L (12-78) L 12/09/17 05:05 Alkaline Phosphatase 65 U/L (45-117) 12/09/17 05:05 Total Protein 5.2 g/dl (6.4-8.2) L 12/09/17 05:05 Albumin 1.8 g/dl (3.4-5.0) L 12/09/17 05:05 Problem List - Problems (1) BING (acute kidney injury) Code(s): N17.9 - ACUTE KIDNEY FAILURE, UNSPECIFIED (2) Altered mental status Code(s): R41.82 - ALTERED MENTAL STATUS, UNSPECIFIED Qualifiers: Altered mental status type: unspecified Qualified Code(s): R41.82 - Altered mental status, unspecified (3) Anemia Code(s): D64.9 - ANEMIA, UNSPECIFIED Qualifiers: Anemia type: unspecified type Qualified Code(s): D64.9 - Anemia, unspecified (4) Elevated troponin Code(s): R74.8 - ABNORMAL LEVELS OF OTHER SERUM ENZYMES (5) Hypernatremia Code(s): E87.0 - HYPEROSMOLALITY AND HYPERNATREMIA (6) UTI (urinary tract infection) Code(s): N39.0 - URINARY TRACT INFECTION, SITE NOT SPECIFIED Assessment/Plan OK to use PEG as intended for nutrition, hydration, medications. PEG care as per protocol aspiration precautions
--- NOTE | 2017-12-12 09:08 | PN ---
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, Physician - Current Medication List Current Medications: Active Medications Acetaminophen (Tylenol -) 650 mg PO Q6H PRN PRN Reason: FEVER Last Admin: 12/10/17 22:37 Dose: 650 mg Amlodipine Besylate (Norvasc -) 2.5 mg PO DAILY [facility] Last Admin: 12/11/17 09:05 Dose: Not Given Aspirin (Ecotrin -) 81 mg PO DAILY [facility] Last Admin: 12/11/17 09:05 Dose: Not Given Atorvastatin Calcium (Lipitor -) 10 mg PO [facility] Last Admin: 12/11/17 22:52 Dose: 10 mg Brimonidine Tartrate (Alphagan P 0.1% -) 1 drop OU TID [facility] Last Admin: 12/12/17 06:59 Dose: 1 drop Calcium Carbonate/Cholecalciferol (Os-Isacc 500+D -) 1 tab PO DAILY [facility] Last Admin: 12/11/17 09:05 Dose: Not Given Carbidopa/Levodopa (Sinemet 25/100 -) 1 each PO TID [facility] Last Admin: 12/12/17 07:00 Dose: 1 each Citalopram Hydrobromide (Celexa -) 10 mg PO DAILY [facility] Last Admin: 12/11/17 09:05 Dose: Not Given Cyanocobalamin (Vitamin B12 -) 1,000 mcg PO DAILY [facility] Last Admin: 12/11/17 09:06 Dose: Not Given Docusate Sodium (Colace -) 300 mg PO [facility] Last Admin: 12/11/17 22:52 Dose: 300 mg Donepezil HCl (Aricept -) 10 mg PO DAILY [facility] Last Admin: 12/11/17 09:05 Dose: Not Given Dorzolamide HCl (Trusopt 2%) 1 drop OU TID [facility] Last Admin: 12/12/17 06:59 Dose: 1 drop Ferrous Sulfate (Feosol -) 325 mg PO BID [facility] Last Admin: 12/11/17 22:52 Dose: 325 mg Folic Acid (Folic Acid -) 1 mg PO DAILY [facility] Last Admin: 12/11/17 09:05 Dose: Not Given Dextrose/Sodium Chloride (D5-1/2ns -) 1,000 mls @ 83 mls/hr IV ASDIR [facility] Last Admin: 12/11/17 17:00 Dose: 83 mls/hr Insulin Aspart (Novolog Vial Sliding Scale -) 1 vial SQ TIDAC [facility] PRN Reason: Protocol Last Admin: 12/12/17 07:04 Dose: Not Given Insulin Aspart (Novolog Vial Sliding Scale -) 1 vial SQ HS [facility] PRN Reason: Protocol Last Admin: 12/11/17 22:57 Dose: 3 units Insulin Detemir (Levemir Vial) 10 units SQ AM [facility] Last Admin: 12/12/17 07:04 Dose: Not Given Latanoprost (Xalatan 0.005% Eye Drops -) 1 drop OU HS [facility] Last Admin: 12/11/17 22:50 Dose: 1 drop Pilocarpine HCl (Pilostat 1% -) 1 drop OU QID [facility] Last Admin: 12/11/17 22:51 Dose: 1 drop - Objective Vital Signs: Vital Signs Temperature 97.7 F 12/12/17 02:00 Pulse Rate 59 L 12/12/17 06:00 Respiratory Rate 18 12/12/17 06:00 Blood Pressure 112/54 12/12/17 06:00 O2 Sat by Pulse Oximetry (%) 98 12/11/17 21:00 Cardiovascular: Yes: S1, S2 Respiratory: Yes: Regular, CTA Bilaterally Gastrointestinal: Yes: Normal Bowel Sounds, Soft, Other (PEG IN PLACE) Labs: CBC, BMP 12/12/17 06:55 INR, PTT INR 0.93 (0.82-1.09) 12/09/17 05:05 Problem List - Problems (1) BING (acute kidney injury) Code(s): N17.9 - ACUTE KIDNEY FAILURE, UNSPECIFIED (2) Altered mental status Code(s): R41.82 - ALTERED MENTAL STATUS, UNSPECIFIED Qualifiers: Altered mental status type: unspecified Qualified Code(s): R41.82 - Altered mental status, unspecified (3) Anemia Code(s): D64.9 - ANEMIA, UNSPECIFIED Qualifiers: Anemia type: unspecified type Qualified Code(s): D64.9 - Anemia, unspecified (4) Elevated troponin Code(s): R74.8 - ABNORMAL LEVELS OF OTHER SERUM ENZYMES Assessment/Plan - Problems (1) BING (acute kidney injury) Assessment/Plan: -seen by nephrology -chronic -K HIGH--GIVE KAYAXELATE Code(s): N17.9 - ACUTE KIDNEY FAILURE, UNSPECIFIED (2) Altered mental status Assessment/Plan: -underlying dementia, exacerbated mental status 2/2 to acute infection Code(s): R41.82 - ALTERED MENTAL STATUS, UNSPECIFIED Qualifiers: Altered mental status type: unspecified Qualified Code(s): R41.82 - Altered mental status, unspecified (3) Anemia Assessment/Plan: -prbc given -monitor h/h -hematology consult -GI F/U--EGD Code(s): D64.9 - ANEMIA, UNSPECIFIED Qualifiers: Anemia type: unspecified type Qualified Code(s): D64.9 - Anemia, unspecified (4) Poor Oral Intake--Dehydration Assessment/Plan: PEG IN PLACE--START FEDINGS AND FLUIDS (5) Hypernatremia Assessment/Plan: -seen by nephrology -hypotonic fluids increased -repeat labs Code(s): E87.0 - HYPEROSMOLALITY AND HYPERNATREMIA (6) UTI (urinary tract infection) Assessment/Plan: -seen by ID -ESBL in the urine -isolation precautions -Off IV abx Code(s): N39.0 - URINARY TRACT INFECTION, SITE NOT SPECIFIED (7) DM Assessment/Plan: BGM ENDO
--- NOTE | 2017-12-12 09:24 | PN ---
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 (short form) - Note 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: Neurology History of Present Illness Patient is a 66-year-old female past medical history of anemia, stage IV CAD, dementia, presents to the emergency department today from [facility] with the chief complaint of altered mental status. History per notes as patient is nonverbal. She states that the patient is usually A&Ox3, verbal calling out and aggressive. During my evaluation has been nonverbal, not following commands. CT head was repeated and reviewed and did not show acute changes. Being managed for alerted mental status, toxic metabolic encephalopathy. Has underlying dementia, on Donepezil. Altered mental status, ID following, getting treatment for UTI, Ceftriaxone completed. Sinemet restarted, three times per day. Remains somnolent this AM, but is arousable during the day. Completed PEg placement, GI note reviewed. Active Medications Acetaminophen (Tylenol -) 650 mg PO Q6H PRN PRN Reason: FEVER Last Admin: 12/10/17 22:37 Dose: 650 mg Amlodipine Besylate (Norvasc -) 2.5 mg PO [facility] Last Admin: 12/11/17 09:05 Dose: Not Given Aspirin (Ecotrin -) 81 mg PO [facility] Last Admin: 12/11/17 09:05 Dose: Not Given Atorvastatin Calcium (Lipitor -) 10 mg PO [facility] Last Admin: 12/11/17 22:52 Dose: 10 mg Brimonidine Tartrate (Alphagan P 0.1% -) 1 drop OU TID [facility] Last Admin: 12/12/17 06:59 Dose: 1 drop Calcium Carbonate/Cholecalciferol (Os-Isacc 500+D -) 1 tab PO DAILY [facility] Last Admin: 12/11/17 09:05 Dose: Not Given Carbidopa/Levodopa (Sinemet 25/100 -) 1 each PO TID [facility] Last Admin: 12/12/17 07:00 Dose: 1 each Citalopram Hydrobromide (Celexa -) 10 mg PO [facility] Last Admin: 12/11/17 09:05 Dose: Not Given Cyanocobalamin (Vitamin B12 -) 1,000 mcg PO [facility] Last Admin: 12/11/17 09:06 Dose: Not Given Docusate Sodium (Colace -) 300 mg PO [facility] Last Admin: 12/11/17 22:52 Dose: 300 mg Donepezil HCl (Aricept -) 10 mg PO [facility] Last Admin: 12/11/17 09:05 Dose: Not Given Dorzolamide HCl (Trusopt 2%) 1 drop OU TID [facility] Last Admin: 12/12/17 06:59 Dose: 1 drop Ferrous Sulfate (Feosol -) 325 mg PO BID [facility] Last Admin: 12/11/17 22:52 Dose: 325 mg Folic Acid (Folic Acid -) 1 mg PO DAILY [facility] Last Admin: 12/11/17 09:05 Dose: Not Given Dextrose/Sodium Chloride (D5-1/2ns -) 1,000 mls @ 83 mls/hr IV [facility] Last Admin: 12/11/17 17:00 Dose: 83 mls/hr Insulin Aspart (Novolog Vial Sliding Scale -) 1 vial SQ TIDAC [facility] PRN Reason: Protocol Last Admin: 12/12/17 07:04 Dose: Not Given Insulin Aspart (Novolog Vial Sliding Scale -) 1 vial SQ HS [facility] PRN Reason: Protocol Last Admin: 12/11/17 22:57 Dose: 3 units Insulin Detemir (Levemir Vial) 10 units SQ AM [facility] Last Admin: 12/12/17 07:04 Dose: Not Given Latanoprost (Xalatan 0.005% Eye Drops -) 1 drop OU HS [facility] Last Admin: 12/11/17 22:50 Dose: 1 drop Pilocarpine HCl (Pilostat 1% -) 1 drop OU QID [facility] Last Admin: 12/11/17 22:51 Dose: 1 drop *Physical Exam Vital Signs Temperature 97.7 F 12/12/17 02:00 Pulse Rate 59 L 12/12/17 06:00 Respiratory Rate 18 12/12/17 06:00 Blood Pressure 112/54 12/12/17 06:00 O2 Sat by Pulse Oximetry (%) 98 12/11/17 21:00 GENERAL: Well developed, well nourished. Awake and alert to name only. No acute distress. Reaching out of exam bed. HEENT: Normocephalic, atraumatic. PERRLA, EOMI. No conjunctival pallor. Sclera are non- icteric. Moist mucous membranes. Oropharynx is clear. NECK: Supple. Full ROM. No JVD. Carotid pulses 2+ and symmetric, without bruits. No thyromegaly. No lymphadenopathy. CARDIOVASCULAR: Regular rate and rhythm. Systolic murmur II/ along the R and L 2nd/3rd intercostal space . No rubs, or gallops. Distal pulses are 2+ and symmetric. PULMONARY: No evidence of respiratory distress. Lungs clear to auscultation bilaterally. No wheezing, rales or rhonchi. ABDOMINAL: Soft. Non-tender. Non-distended. No rebound or guarding. No organomegaly. Normoactive bowel sounds. MUSCULOSKELETAL Normal range of motion at all joints. No bony deformities or tenderness. No CVA tenderness. EXTREMITIES: No cyanosis. No clubbing. No edema. No calf tenderness. SKIN: Warm and dry. Normal capillary refill. No rashes. No jaundice. NEUROLOGICAL: Unable to perform a neuro exam. Pt. is non-verbal, not responding to commands. Gait was not observed. PSYCHIATRIC: Cooperative. Good eye contact. Appropriate mood and affect. CBCD WBC 5.6 K/mm3 (4.0-10.0) D 12/12/17 06:55 RBC 2.81 M/mm3 (3.60-5.2) L 12/12/17 06:55 Hgb 8.8 GM/dL (10.7-15.3) L 12/12/17 06:55 Hct 26.2 % (32.4-45.2) L 12/12/17 06:55 MCV 93.2 fl (80-96) 12/12/17 06:55 MCHC 33.4 g/dl (32.0-36.0) 12/12/17 06:55 RDW 14.6 % (11.6-15.6) 12/12/17 06:55 Plt Count 205 K/MM3 (134-434) 12/12/17 06:55 MPV 8.0 fl (7.5-11.1) 12/12/17 06:55 CMP Sodium 140 mmol/L (136-145) 12/10/17 14:50 Potassium 4.3 mmol/L (3.5-5.1) 12/10/17 14:50 Chloride 108 mmol/L (98-107) H 12/10/17 14:50 Carbon Dioxide 23 mmol/L (21-32) 12/10/17 14:50 Anion Gap 9 (8-16) 12/10/17 14:50 BUN 79 mg/dL (7-18) H 12/10/17 14:50 Creatinine 3.5 mg/dL (0.55-1.02) H 12/10/17 14:50 Creat Clearance w eGFR 13.86 (>60) 12/09/17 05:05 Calcium 7.8 mg/dL (8.5-10.1) L 12/10/17 14:50 Total Bilirubin 0.4 mg/dL (0.2-1.0) 12/09/17 05:05 AST 33 U/L (15-37) 12/09/17 05:05 ALT 10 U/L (12-78) L 12/09/17 05:05 Alkaline Phosphatase 65 U/L (45-117) 12/09/17 05:05 Total Protein 5.2 g/dl (6.4-8.2) L 12/09/17 05:05 Albumin 1.8 g/dl (3.4-5.0) L 12/09/17 05:05 CT head reviewed Medical Decision Making 66-year-old female past medical history of anemia, stage IV CAD, dementia, presents to the emergency department today from [facility] with the chief complaint of altered mental status. History per notes as patient is nonverbal. She states that the patient is usually A&Ox3, verbal calling out and aggressive. During my evaluation has been nonverbal, restless. CT head reviewed and did not show acute changes. For underlying dementia, continue on Donepezil. Had superimposed AMS 2/2 infection Ceftriaxone course completed Continue medical optimization Nephrology follow up regarding hypernatermia and CKD Started sinemet, no issues with medication Peg placement completed, GI note reviewed Continue medical optimization
[2017-12-12] MEDS: CALCIUM 500MG/VIT-D 200 UNITS COMBO TABLET (FP) PO SCH (09:45)
[2017-12-12] MEDS: PILOCARPINE 1% OPHTHALMIC SOLUTION 15 ML BOTTLE OU SCH ×4 (09:45→21:52)
[2017-12-12] MEDS: DONEPEZIL HCL 10 MG TABLET (FP) PO SCH (09:45)
[2017-12-12] MEDS: CITALOPRAM HYDROBROMIDE 10 MG TABLET (FP) PO SCH (09:45)
[2017-12-12] MEDS: FERROUS SO4 325 MG TABLET (FP) PO SCH ×2 (09:45→21:53)
[2017-12-12] MEDS: FOLIC ACID 1 MG TABLET (FP) PO SCH (09:45)
[2017-12-12] MEDS: amLODIPine BESYLATE 2.5 MG TABLET (FP) PO SCH (09:45)
[2017-12-12] MEDS: ASPIRIN COATED 81 MG TABLET.EC PO SCH (09:45)
[2017-12-12] MEDS: CYANOCOBALAMIN 1,000 MCG TABLET (FP) PO SCH (09:45)
--- NOTE | 2017-12-12 12:09 | PN ---
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, Physician History of Present Illness: Pt seen and examined at bedside. No great change in status. She remains lethargic. - Current Medication List Current Medications: Active Medications Acetaminophen (Tylenol -) 650 mg PO Q6H PRN PRN Reason: FEVER Last Admin: 12/10/17 22:37 Dose: 650 mg Amlodipine Besylate (Norvasc -) 2.5 mg PO DAILY [facility] Last Admin: 12/12/17 09:45 Dose: 2.5 mg Aspirin (Ecotrin -) 81 mg PO DAILY [facility] Last Admin: 12/12/17 09:45 Dose: 81 mg Atorvastatin Calcium (Lipitor -) 10 mg PO HS [facility] Last Admin: 12/11/17 22:52 Dose: 10 mg Brimonidine Tartrate (Alphagan P 0.1% -) 1 drop OU TID [facility] Last Admin: 12/12/17 06:59 Dose: 1 drop Calcium Carbonate/Cholecalciferol (Os-Isacc 500+D -) 1 tab PO DAILY [facility] Last Admin: 12/12/17 09:45 Dose: 1 tab Carbidopa/Levodopa (Sinemet 25/100 -) 1 each PO TID [facility] Last Admin: 12/12/17 07:00 Dose: 1 each Citalopram Hydrobromide (Celexa -) 10 mg PO DAILY [facility] Last Admin: 12/12/17 09:45 Dose: 10 mg Cyanocobalamin (Vitamin B12 -) 1,000 mcg PO DAILY [facility] Last Admin: 12/12/17 09:45 Dose: 1,000 mcg Docusate Sodium (Colace -) 300 mg PO HS [facility] Last Admin: 12/11/17 22:52 Dose: 300 mg Donepezil HCl (Aricept -) 10 mg PO DAILY [facility] Last Admin: 12/12/17 09:45 Dose: 10 mg Dorzolamide HCl (Trusopt 2%) 1 drop OU TID [facility] Last Admin: 12/12/17 06:59 Dose: 1 drop Ferrous Sulfate (Feosol -) 325 mg PO BID [facility] Last Admin: 12/12/17 09:45 Dose: 325 mg Folic Acid (Folic Acid -) 1 mg PO DAILY [facility] Last Admin: 12/12/17 09:45 Dose: 1 mg Dextrose/Sodium Chloride (D5-1/2ns -) 1,000 mls @ 83 mls/hr IV ASDIR [facility] Last Admin: 01/30/18 17:00 Dose: 83 mls/hr Insulin Aspart (Novolog Vial Sliding Scale -) 1 vial SQ [facility]IDAC [facility] PRN Reason: Protocol Last Admin: 12/12/17 11:58 Dose: Not Given Insulin Aspart (Novolog Vial Sliding Scale -) 1 vial SQ HS [facility] PRN Reason: Protocol Last Admin: 12/11/17 22:57 Dose: 3 units Insulin Detemir (Levemir Vial) 10 units SQ AM [facility] Last Admin: 12/12/17 07:04 Dose: Not Given Latanoprost (Xalatan 0.005% Eye Drops -) 1 drop OU HS [facility] Last Admin: 12/11/17 22:50 Dose: 1 drop Pilocarpine HCl (Pilostat 1% -) 1 drop OU QID [facility] Last Admin: 12/12/17 09:45 Dose: 1 drop - Objective Vital Signs: Vital Signs Temperature 97.9 F 12/12/17 10:48 Pulse Rate 61 12/12/17 10:48 Respiratory Rate 18 12/12/17 10:48 Blood Pressure 121/59 12/12/17 10:48 O2 Sat by Pulse Oximetry (%) 98 12/12/17 09:00 Constitutional: Yes: Calm Eyes: Yes: Conjunctiva Clear HENT: Yes: Atraumatic Cardiovascular: Yes: S1, S2 Respiratory: Yes: CTA Bilaterally Gastrointestinal: Yes: Soft Genitourinary: Yes: Manley Present Musculoskeletal: Yes: Muscle Weakness Edema: No Neurological: Yes: Lethargy Labs: CBC, BMP 12/12/17 06:55 12/12/17 06:55 INR, PTT INR 0.93 (0.82-1.09) 12/09/17 05:05 Problem List - Problems (1) BING (acute kidney injury) Code(s): N17.9 - ACUTE KIDNEY FAILURE, UNSPECIFIED (2) Altered mental status Code(s): R41.82 - ALTERED MENTAL STATUS, UNSPECIFIED Qualifiers: Altered mental status type: unspecified Qualified Code(s): R41.82 - Altered mental status, unspecified (3) Hypernatremia Code(s): E87.0 - HYPEROSMOLALITY AND HYPERNATREMIA Assessment/Plan Current Medications Generic Name Dose Route Start Last Admin Trade Name Freq PRN Reason Stop Dose Admin Acetaminophen 650 mg 11/29/17 13:50 12/10/17 22:37 Tylenol - PO 650 mg Q6H PRN Administration FEVER Amlodipine Besylate 2.5 mg 11/30/17 20:00 12/12/17 09:45 Norvasc - PO 2.5 mg DAILY [facility] Administration Aspirin 81 mg 11/29/17 10:00 12/12/17 09:45 Ecotrin - PO 81 mg DAILY [facility] Administration Atorvastatin Calcium 10 mg 11/29/17 22:00 12/11/17 22:52 Lipitor - PO 10 mg HS [facility] Administration Brimonidine Tartrate 1 drop 11/29/17 06:00 12/12/17 06:59 Alphagan P 0.1% - OU 1 drop TID [facility] Administration Calcium Carbonate/Cholecalciferol 1 tab 11/29/17 10:00 12/12/17 09:45 Os-Isacc 500+D - PO 1 tab DAILY [facility] Administration Carbidopa/Levodopa 1 each 12/04/17 14:00 12/12/17 07:00 Sinemet 25/100 - PO 1 each TID [facility] Administration Citalopram Hydrobromide 10 mg 11/29/17 10:00 12/12/17 09:45 Celexa - PO 10 mg DAILY [facility] Administration Cyanocobalamin 1,000 mcg 11/29/17 10:00 12/12/17 09:45 Vitamin B12 - PO 1,000 mcg DAILY [facility] Administration Docusate Sodium 300 mg 11/29/17 22:00 12/11/17 22:52 Colace - PO 300 mg HS [facility] Administration Donepezil HCl 10 mg 11/29/17 10:00 12/12/17 09:45 Aricept - PO 10 mg DAILY [facility] Administration Dorzolamide HCl 1 drop 11/29/17 06:00 12/12/17 06:59 Trusopt 2% OU 1 drop TID [facility] Administration Ferrous Sulfate 325 mg 11/29/17 10:00 12/12/17 09:45 Feosol - PO 325 mg BID [facility] Administration Folic Acid 1 mg 11/29/17 10:00 12/12/17 09:45 Folic Acid - PO 1 mg DAILY [facility] Administration Dextrose/Sodium Chloride 1,000 mls @ 83 mls/hr 12/08/17 15:30 12/11/17 17:00 D5-1/2ns - IV 83 mls/hr ASDIR [facility] Administration Insulin Aspart 1 vial 11/29/17 07:00 12/12/17 11:58 Novolog Vial Sliding Scale - SQ Not Given TIDAC [facility] Protocol Insulin Aspart 1 vial 11/29/17 22:00 12/11/17 22:57 Novolog Vial Sliding Scale - SQ 3 units HS [facility] Administration Protocol Insulin Detemir 10 units 12/12/17 07:00 12/12/17 07:04 Levemir Vial SQ Not Given AM [facility] Latanoprost 1 drop 11/29/17 22:00 12/11/17 22:50 Xalatan 0.005% Eye Drops - OU 1 drop HS [facility] Administration Pilocarpine HCl 1 drop 11/29/17 10:00 12/12/17 09:45 Pilostat 1% - OU 1 drop QID [facility] Administration Impression 1. CKD stage 4 2. anemia 3. change in mental status 4. hypernatremia 5. dehydration 6. Parkinson's disease 7. Depression 8. hyperkalemia Plan - GI input appreciated, peg will be used today - nepro for feeds - can d/c manley catheter - monitor renal function - discussed with nursing staff - stop fluids once tolerating feeds - repeat labs in am - peg care
[2017-12-12] MEDS: DEXTROSE 5%-0.45% SALINE 1,000 ML IV SCH (14:39)
[2017-12-12] MEDS: ATORVASTATIN CA 10 MG TABLET (FP) PO SCH (21:53)
[2017-12-12] MEDS: DOCUSATE SODIUM 100 MG CAPSULE (FP) PO SCH (21:53)
[2017-12-12] MEDS: LATANOPROST 0.005% OPHTH SOLN 2.5ML BOTTLE OU SCH (21:54)
[2017-12-13] MEDS: DEXTROSE 5%-0.45% SALINE 1,000 ML IV SCH (02:20)
[2017-12-13] MEDS: BRIMONIDINE TARTRATE 0.1% OPHTHALMIC 5 ML BOTTLE OU SCH ×2 (06:19→14:09)
[2017-12-13] MEDS: DORZOLAMIDE 2% HCL OPHTHALMIC SOLUTION 10 ML BOTTLE OU SCH ×2 (06:19→16:09)
[2017-12-13] MEDS: CARBIDOPA/LEVODOPA 25/100 TABLET (FP) PO SCH ×2 (06:19→16:09)
[2017-12-13] MEDS: INSULIN DETEMIR 100 UNITS/ML MDV SQ SCH (06:34)
[2017-12-13] MEDS: INSULIN SLIDING SCALE (NOVOLOG) 1 VIAL SQ SCH ×3 (06:35→16:09)
--- NOTE | 2017-12-13 07:56 | PN ---
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, Physician History of Present Illness: PEG intact. No events overnight. Afebrile, benign abdomen. Tolerating tube feeds - Current Medication List Current Medications: Active Medications Acetaminophen (Tylenol -) 650 mg PO Q6H PRN PRN Reason: FEVER Last Admin: 12/10/17 22:37 Dose: 650 mg Amlodipine Besylate (Norvasc -) 2.5 mg PO DAILY [facility] Last Admin: 12/12/17 09:45 Dose: 2.5 mg Aspirin (Ecotrin -) 81 mg PO DAILY [facility] Last Admin: 12/12/17 09:45 Dose: 81 mg Atorvastatin Calcium (Lipitor -) 10 mg PO HS [facility] Last Admin: 12/12/17 21:53 Dose: 10 mg Brimonidine Tartrate (Alphagan P 0.1% -) 1 drop OU TID [facility] Last Admin: 12/13/17 06:19 Dose: 1 drop Calcium Carbonate/Cholecalciferol (Os-Isacc 500+D -) 1 tab PO DAILY [facility] Last Admin: 12/12/17 09:45 Dose: 1 tab Carbidopa/Levodopa (Sinemet 25/100 -) 1 each PO TID [facility] Last Admin: 12/13/17 06:19 Dose: 1 each Citalopram Hydrobromide (Celexa -) 10 mg PO DAILY [facility] Last Admin: 12/12/17 09:45 Dose: 10 mg Cyanocobalamin (Vitamin B12 -) 1,000 mcg PO DAILY [facility] Last Admin: 12/12/17 09:45 Dose: 1,000 mcg Docusate Sodium (Colace -) 300 mg PO HS [facility] Last Admin: 12/12/17 21:53 Dose: 300 mg Donepezil HCl (Aricept -) 10 mg PO DAILY [facility] Last Admin: 12/12/17 09:45 Dose: 10 mg Dorzolamide HCl (Trusopt 2%) 1 drop OU TID [facility] Last Admin: 12/13/17 06:19 Dose: 1 drop Ferrous Sulfate (Feosol -) 325 mg PO BID [facility] Last Admin: 12/12/17 21:53 Dose: 325 mg Folic Acid (Folic Acid -) 1 mg PO DAILY [facility] Last Admin: 12/12/17 09:45 Dose: 1 mg Dextrose/Sodium Chloride (D5-1/2ns -) 1,000 mls @ 35 mls/hr IV ASDIR [facility] Last Admin: 02/01/18 02:20 Dose: 35 mls/hr Insulin Aspart (Novolog Vial Sliding Scale -) 1 vial SQ TIDAC [facility] PRN Reason: Protocol Last Admin: 12/13/17 06:35 Dose: 3 units Insulin Aspart (Novolog Vial Sliding Scale -) 1 vial SQ HS [facility] PRN Reason: Protocol Last Admin: 12/12/17 21:56 Dose: 2 units Insulin Detemir (Levemir Vial) 10 units SQ AM [facility] Last Admin: 12/13/17 06:34 Dose: 10 units Latanoprost (Xalatan 0.005% Eye Drops -) 1 drop OU HS [facility] Last Admin: 12/12/17 21:54 Dose: 1 drop Pilocarpine HCl (Pilostat 1% -) 1 drop OU QID [facility] Last Admin: 12/12/17 21:52 Dose: 1 drop - Objective Vital Signs: Vital Signs Temperature 98.0 F 12/13/17 05:49 Pulse Rate 75 12/13/17 05:49 Respiratory Rate 20 12/13/17 05:49 Blood Pressure 119/55 12/13/17 05:49 O2 Sat by Pulse Oximetry (%) 100 12/12/17 21:00 Constitutional: Yes: No Distress, Calm Gastrointestinal: Yes: Normal Bowel Sounds, Soft. No: Distention, Vomiting Labs: CBC, BMP 12/12/17 06:55 12/12/17 06:55 INR, PTT INR 0.93 (0.82-1.09) 12/09/17 05:05 Problem List - Problems (1) BING (acute kidney injury) Code(s): N17.9 - ACUTE KIDNEY FAILURE, UNSPECIFIED (2) Altered mental status Code(s): R41.82 - ALTERED MENTAL STATUS, UNSPECIFIED Qualifiers: Altered mental status type: unspecified Qualified Code(s): R41.82 - Altered mental status, unspecified (3) Anemia Code(s): D64.9 - ANEMIA, UNSPECIFIED Qualifiers: Anemia type: unspecified type Qualified Code(s): D64.9 - Anemia, unspecified (4) Elevated troponin Code(s): R74.8 - ABNORMAL LEVELS OF OTHER SERUM ENZYMES (5) Hypernatremia Code(s): E87.0 - HYPEROSMOLALITY AND HYPERNATREMIA (6) UTI (urinary tract infection) Code(s): N39.0 - URINARY TRACT INFECTION, SITE NOT SPECIFIED Assessment/Plan OK to use PEG as intended for nutrition, hydration, medications. PEG care as per protocol aspiration precautions will sign off
--- NOTE | 2017-12-13 09:49 | PN ---
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 (short form) - Note 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: Neurology History of Present Illness Patient is a 66-year-old female past medical history of anemia, stage IV CAD, dementia, presents to the emergency department today from [facility] with the chief complaint of altered mental status. History per notes as patient is nonverbal. She states that the patient is usually A&Ox3, verbal calling out and aggressive. During my evaluation has been nonverbal, not following commands. CT head was repeated and reviewed and did not show acute changes. Being managed for alerted mental status, toxic metabolic encephalopathy. Has underlying dementia, on Donepezil. Altered mental status, ID following, getting treatment for UTI, Ceftriaxone completed. Sinemet restarted, three times per day. Remains somnolent this AM, but is arousable during the day. No new neurologic events, remains stable. Active Medications Acetaminophen (Tylenol -) 650 mg PO Q6H PRN PRN Reason: FEVER Last Admin: 12/10/17 22:37 Dose: 650 mg Amlodipine Besylate (Norvasc -) 2.5 mg PO DAILY [facility] Last Admin: 12/12/17 09:45 Dose: 2.5 mg Aspirin (Ecotrin -) 81 mg PO DAILY [facility] Last Admin: 12/12/17 09:45 Dose: 81 mg Atorvastatin Calcium (Lipitor -) 10 mg PO [facility] Last Admin: 12/12/17 21:53 Dose: 10 mg Brimonidine Tartrate (Alphagan P 0.1% -) 1 drop OU TID [facility] Last Admin: 12/13/17 06:19 Dose: 1 drop Calcium Carbonate/Cholecalciferol (Os-Isacc 500+D -) 1 tab PO DAILY [facility] Last Admin: 12/12/17 09:45 Dose: 1 tab Carbidopa/Levodopa (Sinemet 25/100 -) 1 each PO TID [facility] Last Admin: 12/13/17 06:19 Dose: 1 each Citalopram Hydrobromide (Celexa -) 10 mg PO DAILY [facility] Last Admin: 12/12/17 09:45 Dose: 10 mg Cyanocobalamin (Vitamin B12 -) 1,000 mcg PO DAILY [facility] Last Admin: 12/12/17 09:45 Dose: 1,000 mcg Docusate Sodium (Colace -) 300 mg PO [facility] Last Admin: 12/12/17 21:53 Dose: 300 mg Donepezil HCl (Aricept -) 10 mg PO DAILY [facility] Last Admin: 12/12/17 09:45 Dose: 10 mg Dorzolamide HCl (Trusopt 2%) 1 drop OU TID [facility] Last Admin: 12/13/17 06:19 Dose: 1 drop Ferrous Sulfate (Feosol -) 325 mg PO BID [facility] Last Admin: 12/12/17 21:53 Dose: 325 mg Folic Acid (Folic Acid -) 1 mg PO DAILY [facility] Last Admin: 12/12/17 09:45 Dose: 1 mg Dextrose/Sodium Chloride (D5-1/2ns -) 1,000 mls @ 35 mls/hr IV ASDIR [facility] Last Admin: 12/13/17 02:20 Dose: 35 mls/hr Insulin Aspart (Novolog Vial Sliding Scale -) 1 vial SQ TIDAC [facility] PRN Reason: Protocol Last Admin: 12/13/17 06:35 Dose: 3 units Insulin Aspart (Novolog Vial Sliding Scale -) 1 vial SQ HS [facility] PRN Reason: Protocol Last Admin: 12/12/17 21:56 Dose: 2 units Insulin Detemir (Levemir Vial) 10 units SQ AM [facility] Last Admin: 12/13/17 06:34 Dose: 10 units Latanoprost (Xalatan 0.005% Eye Drops -) 1 drop OU HS [facility] Last Admin: 12/12/17 21:54 Dose: 1 drop Pilocarpine HCl (Pilostat 1% -) 1 drop OU QID [facility] Last Admin: 12/12/17 21:52 Dose: 1 drop *Physical Exam Vital Signs Temperature 98.0 F 12/13/17 05:49 Pulse Rate 75 12/13/17 05:49 Respiratory Rate 20 12/13/17 05:49 Blood Pressure 119/55 12/13/17 05:49 O2 Sat by Pulse Oximetry (%) 100 12/12/17 21:00 GENERAL: Well developed, well nourished. Awake and alert to name only. No acute distress. Reaching out of exam bed. HEENT: Normocephalic, atraumatic. PERRLA, EOMI. No conjunctival pallor. Sclera are non- icteric. Moist mucous membranes. Oropharynx is clear. NECK: Supple. Full ROM. No JVD. Carotid pulses 2+ and symmetric, without bruits. No thyromegaly. No lymphadenopathy. CARDIOVASCULAR: Regular rate and rhythm. Systolic murmur II/ along the R and L 2nd/3rd intercostal space . No rubs, or gallops. Distal pulses are 2+ and symmetric. PULMONARY: No evidence of respiratory distress. Lungs clear to auscultation bilaterally. No wheezing, rales or rhonchi. ABDOMINAL: Soft. Non-tender. Non-distended. No rebound or guarding. No organomegaly. Normoactive bowel sounds. MUSCULOSKELETAL Normal range of motion at all joints. No bony deformities or tenderness. No CVA tenderness. EXTREMITIES: No cyanosis. No clubbing. No edema. No calf tenderness. SKIN: Warm and dry. Normal capillary refill. No rashes. No jaundice. NEUROLOGICAL: Unable to perform a neuro exam. Pt. is non-verbal, not responding to commands. Gait was not observed. PSYCHIATRIC: Cooperative. Good eye contact. Appropriate mood and affect. CBCD WBC 5.6 K/mm3 (4.0-10.0) D 12/12/17 06:55 RBC 2.81 M/mm3 (3.60-5.2) L 12/12/17 06:55 Hgb 8.8 GM/dL (10.7-15.3) L 12/12/17 06:55 Hct 26.2 % (32.4-45.2) L 12/12/17 06:55 MCV 93.2 fl (80-96) 12/12/17 06:55 MCHC 33.4 g/dl (32.0-36.0) 12/12/17 06:55 RDW 14.6 % (11.6-15.6) 12/12/17 06:55 Plt Count 205 K/MM3 (134-434) 12/12/17 06:55 MPV 8.0 fl (7.5-11.1) 12/12/17 06:55 CMP Sodium 140 mmol/L (136-145) 12/12/17 06:55 Potassium 3.8 mmol/L (3.5-5.1) 12/12/17 06:55 Chloride 109 mmol/L (98-107) H 12/12/17 06:55 Carbon Dioxide 20 mmol/L (21-32) L 12/12/17 06:55 Anion Gap 11 (8-16) 12/12/17 06:55 BUN 61 mg/dL (7-18) H 12/12/17 06:55 Creatinine 2.8 mg/dL (0.55-1.02) H 12/12/17 06:55 Creat Clearance w eGFR 16.75 (>60) 12/12/17 06:55 Calcium 7.6 mg/dL (8.5-10.1) L 12/12/17 06:55 Total Bilirubin 0.5 mg/dL (0.2-1.0) D 12/12/17 06:55 AST 27 U/L (15-37) 12/12/17 06:55 ALT 11 U/L (12-78) L 12/12/17 06:55 Alkaline Phosphatase 74 U/L (45-117) 12/12/17 06:55 Total Protein 4.9 g/dl (6.4-8.2) L 12/12/17 06:55 Albumin 1.7 g/dl (3.4-5.0) L 12/12/17 06:55 CT head reviewed Medical Decision Making 66-year-old female past medical history of anemia, stage IV CAD, dementia, presents to the emergency department today from [facility] with the chief complaint of altered mental status. History per notes as patient is nonverbal. She states that the patient is usually A&Ox3, verbal calling out and aggressive. During my evaluation has been nonverbal, restless. CT head reviewed and did not show acute changes. For underlying dementia, continue on Donepezil. Had superimposed AMS 2/2 infection Ceftriaxone course completed Continue medical optimization Nephrology follow up regarding hypernatermia and CKD Started sinemet, no issues with medication Peg placement completed, GI note reviewed Continue medical optimization
[2017-12-13] MEDS: FOLIC ACID 1 MG TABLET (FP) PO SCH (10:18)
[2017-12-13] MEDS: CYANOCOBALAMIN 1,000 MCG TABLET (FP) PO SCH (10:18)
[2017-12-13] MEDS: FERROUS SO4 325 MG TABLET (FP) PO SCH (10:18)
[2017-12-13] MEDS: ASPIRIN COATED 81 MG TABLET.EC PO SCH (10:18)
[2017-12-13] MEDS: CITALOPRAM HYDROBROMIDE 10 MG TABLET (FP) PO SCH (10:18)
[2017-12-13] MEDS: amLODIPine BESYLATE 2.5 MG TABLET (FP) PO SCH (10:18)
[2017-12-13] MEDS: CALCIUM 500MG/VIT-D 200 UNITS COMBO TABLET (FP) PO SCH (10:18)
[2017-12-13] MEDS: DONEPEZIL HCL 10 MG TABLET (FP) PO SCH (10:18)
[2017-12-13] MEDS: PILOCARPINE 1% OPHTHALMIC SOLUTION 15 ML BOTTLE OU SCH ×3 (10:19→18:43)
--- NOTE | 2017-12-13 10:50 | PN ---
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, Physician History of Present Illness: Pt seen and examined at bedside. She is tolerating feeds so far. - Current Medication List Current Medications: Active Medications Acetaminophen (Tylenol -) 650 mg PO Q6H PRN PRN Reason: FEVER Last Admin: 12/10/17 22:37 Dose: 650 mg Amlodipine Besylate (Norvasc -) 2.5 mg PO DAILY [facility] Last Admin: 12/13/17 10:18 Dose: 2.5 mg Aspirin (Ecotrin -) 81 mg PO DAILY [facility] Last Admin: 12/13/17 10:18 Dose: 81 mg Atorvastatin Calcium (Lipitor -) 10 mg PO HS [facility] Last Admin: 12/12/17 21:53 Dose: 10 mg Brimonidine Tartrate (Alphagan P 0.1% -) 1 drop OU TID [facility] Last Admin: 12/13/17 06:19 Dose: 1 drop Calcium Carbonate/Cholecalciferol (Os-Isacc 500+D -) 1 tab PO DAILY [facility] Last Admin: 12/13/17 10:18 Dose: 1 tab Carbidopa/Levodopa (Sinemet 25/100 -) 1 each PO TID [facility] Last Admin: 12/13/17 06:19 Dose: 1 each Citalopram Hydrobromide (Celexa -) 10 mg PO DAILY [facility] Last Admin: 12/13/17 10:18 Dose: 10 mg Cyanocobalamin (Vitamin B12 -) 1,000 mcg PO DAILY [facility] Last Admin: 12/13/17 10:18 Dose: 1,000 mcg Docusate Sodium (Colace -) 300 mg PO HS [facility] Last Admin: 12/12/17 21:53 Dose: 300 mg Donepezil HCl (Aricept -) 10 mg PO DAILY [facility] Last Admin: 12/13/17 10:18 Dose: 10 mg Dorzolamide HCl (Trusopt 2%) 1 drop OU TID [facility] Last Admin: 12/13/17 06:19 Dose: 1 drop Ferrous Sulfate (Feosol -) 325 mg PO BID [facility] Last Admin: 12/13/17 10:18 Dose: 325 mg Folic Acid (Folic Acid -) 1 mg PO DAILY [facility] Last Admin: 12/13/17 10:18 Dose: 1 mg Dextrose/Sodium Chloride (D5-1/2ns -) 1,000 mls @ 35 mls/hr IV ASDIR [facility] Last Admin: 12/13/17 02:20 Dose: 35 mls/hr Insulin Aspart (Novolog Vial Sliding Scale -) 1 vial SQ TIDAC [facility] PRN Reason: Protocol Last Admin: 12/13/17 06:35 Dose: 3 units Insulin Aspart (Novolog Vial Sliding Scale -) 1 vial SQ HS [facility] PRN Reason: Protocol Last Admin: 12/12/17 21:56 Dose: 2 units Insulin Detemir (Levemir Vial) 10 units SQ AM [facility] Last Admin: 12/13/17 06:34 Dose: 10 units Latanoprost (Xalatan 0.005% Eye Drops -) 1 drop OU HS [facility] Last Admin: 12/12/17 21:54 Dose: 1 drop Pilocarpine HCl (Pilostat 1% -) 1 drop OU QID [facility] Last Admin: 12/13/17 10:19 Dose: 1 drop - Objective Vital Signs: Vital Signs Temperature 98.0 F 12/13/17 05:49 Pulse Rate 75 12/13/17 05:49 Respiratory Rate 20 12/13/17 05:49 Blood Pressure 119/55 12/13/17 05:49 O2 Sat by Pulse Oximetry (%) 100 12/12/17 21:00 Constitutional: Yes: Calm Eyes: Yes: Conjunctiva Clear HENT: Yes: Atraumatic Cardiovascular: Yes: S1, S2 Respiratory: Yes: CTA Bilaterally Gastrointestinal: Yes: Other (peg) Genitourinary: Yes: Incontinence Musculoskeletal: Yes: Muscle Weakness Edema: No Neurological: Yes: Lethargy Labs: CBC, BMP 12/12/17 06:55 INR, PTT INR 0.93 (0.82-1.09) 12/09/17 05:05 Problem List - Problems (1) BING (acute kidney injury) Code(s): N17.9 - ACUTE KIDNEY FAILURE, UNSPECIFIED (2) Altered mental status Code(s): R41.82 - ALTERED MENTAL STATUS, UNSPECIFIED Qualifiers: Altered mental status type: unspecified Qualified Code(s): R41.82 - Altered mental status, unspecified (3) Hypernatremia Code(s): E87.0 - HYPEROSMOLALITY AND HYPERNATREMIA Assessment/Plan Current Medications Generic Name Dose Route Start Last Admin Trade Name Freq PRN Reason Stop Dose Admin Acetaminophen 650 mg 11/29/17 13:50 12/10/17 22:37 Tylenol - PO 650 mg Q6H PRN Administration FEVER Amlodipine Besylate 2.5 mg 11/30/17 20:00 12/13/17 10:18 Norvasc - PO 2.5 mg DAILY [facility] Administration Aspirin 81 mg 11/29/17 10:00 12/13/17 10:18 Ecotrin - PO 81 mg DAILY [facility] Administration Atorvastatin Calcium 10 mg 11/29/17 22:00 12/12/17 21:53 Lipitor - PO 10 mg HS [facility] Administration Brimonidine Tartrate 1 drop 11/29/17 06:00 12/13/17 06:19 Alphagan P 0.1% - OU 1 drop TID [facility] Administration Calcium Carbonate/Cholecalciferol 1 tab 11/29/17 10:00 12/13/17 10:18 Os-Isacc 500+D - PO 1 tab DAILY [facility] Administration Carbidopa/Levodopa 1 each 12/04/17 14:00 12/13/17 06:19 Sinemet 25/100 - PO 1 each TID [facility] Administration Citalopram Hydrobromide 10 mg 11/29/17 10:00 12/13/17 10:18 Celexa - PO 10 mg DAILY [facility] Administration Cyanocobalamin 1,000 mcg 11/29/17 10:00 12/13/17 10:18 Vitamin B12 - PO 1,000 mcg DAILY [facility] Administration Docusate Sodium 300 mg 11/29/17 22:00 12/12/17 21:53 Colace - PO 300 mg HS [facility] Administration Donepezil HCl 10 mg 11/29/17 10:00 12/13/17 10:18 Aricept - PO 10 mg DAILY [facility] Administration Dorzolamide HCl 1 drop 11/29/17 06:00 12/13/17 06:19 Trusopt 2% OU 1 drop TID [facility] Administration Ferrous Sulfate 325 mg 11/29/17 10:00 12/13/17 10:18 Feosol - PO 325 mg BID [facility] Administration Folic Acid 1 mg 11/29/17 10:00 12/13/17 10:18 Folic Acid - PO 1 mg DAILY [facility] Administration Dextrose/Sodium Chloride 1,000 mls @ 35 mls/hr 12/12/17 12:09 12/13/17 02:20 D5-1/2ns - IV 35 mls/hr ASDIR [facility] Administration Insulin Aspart 1 vial 11/29/17 07:00 12/13/17 06:35 Novolog Vial Sliding Scale - SQ 3 units TIDAC [facility] Administration Protocol Insulin Aspart 1 vial 11/29/17 22:00 12/12/17 21:56 Novolog Vial Sliding Scale - SQ 2 units HS [facility] Administration Protocol Insulin Detemir 10 units 12/12/17 07:00 12/13/17 06:34 Levemir Vial SQ 10 units AM [facility] Administration Latanoprost 1 drop 11/29/17 22:00 12/12/17 21:54 Xalatan 0.005% Eye Drops - OU 1 drop HS [facility] Administration Pilocarpine HCl 1 drop 11/29/17 10:00 12/13/17 10:19 Pilostat 1% - OU 1 drop QID [facility] Administration Impression 1. CKD stage 4 2. anemia 3. change in mental status 4. hypernatremia 5. dehydration 6. Parkinson's disease 7. Depression 8. hyperkalemia Plan - follow labs - d/c fluids - add free water flushes to feeds - advance feeds as tolerated - repeat labs in am - peg care
[2017-12-13 13:00] LABS: ANION GAP 9 (8-16); BLOOD UREA NITROGEN 56 mg/dL (7-18); CALCIUM 7.4 mg/dL (8.5-10.1); CHLORIDE 107 mmol/L (98-107); CO2 22 mmol/L (21-32); CREATININE 2.8 mg/dL (0.55-1.02); GLUCOSE,RANDOM 194 mg/dL (74-106); POTASSIUM 4.1 mmol/L (3.5-5.1); SODIUM 138 mmol/L (136-145)
--- NOTE | 2017-12-13 14:03 | DS ---
Physical Examination Vital Signs: Vital Signs Temperature 98.0 F 12/13/17 05:49 Pulse Rate 75 12/13/17 05:49 Respiratory Rate 20 12/13/17 05:49 Blood Pressure 119/55 12/13/17 05:49 O2 Sat by Pulse Oximetry (%) 100 12/12/17 21:00 Constitutional: Yes: Calm Cardiovascular: Yes: Regular Rate and Rhythm, S1, S2 Respiratory: Yes: CTA Bilaterally Gastrointestinal: Yes: Normal Bowel Sounds, Soft, Other (peg) Edema: No Labs: CBC, BMP 12/12/17 06:55 12/13/17 10:00 Discharge Summary Reason For Visit: ACUTE KID INJ/ANEMIA/HYPERNATREMIA Current Active Problems BING (acute kidney injury) (Acute) Altered mental status (Acute) Anemia (Acute) Elevated troponin (Acute) Hypernatremia (Acute) Type 2 diabetes mellitus with diabetic chronic kidney disease (Acute) UTI (urinary tract infection) (Acute) Hospital Course: PCP: Jayda HISTORY OF PRESENT ILLNESS: This is a 66 year old female sent to ED from [facility] for altered mental status. Pt is nonverbal at present, all history obtained from chart. As per ED chart, pt was noted to be nonverbal, listless and not herself today. Her normal baseline is aggressive, calling out and alert and oriented. She has not been taking her medications and her po intake has been very poor. Upon review of pt' s medication list from [facility] it appears she has been on D5NS @50cc/hr since 11/26. ER course was notable for: (1) BUN / CR 68/3.4 (baseline Cr 2.9 as pre [place]) (2) u/a with leukesterase and 12 WBC (3) Trop 0.18 PAST MEDICAL HISTORY: Dementia, CKD4, Anemia, DM, Parkinson's disease, glaucoma, HLD, depression PAST SURGICAL HISTORY: unknown Social History: Smoking: unknown Alcohol: unknown Drugs: unknown Family History: unknown Allergies No Known Allergies Allergy (Verified 11/28/17 11:40) in hospital: seen by renal IV fluids na is elevated now improved CKD 4 now bun/cr has stablized- check weekly labs hgb 6.9 got prbc got EGD and peg placed as well for adequate hydration now to go back to [place] Condition: Guarded - Instructions Referrals: Pradip Montelongo MD [Primary Care Provider] - Disposition: [facility] - Home Medications Comprehensive Discharge Medication List: Ambulatory Orders Aspirin [Aspirin EC] 81 mg PO DAILY 11/28/17 Brimonidine Tartrate [Alphagan P 0.1% -] 1 drop OU TID 11/28/17 Calcium Carbonate/Vitamin D3 [Calcium 500 + Vit D 200 Caplet] 1 each PO DAILY Carbidopa/Levodopa 25/100 [Sinemet 25/100 -] 1 each PO TID 11/28/17 Citalopram Hydrobromide [Celexa -] 10 mg PO DAILY 11/28/17 Clonazepam [Klonopin -] 0.5 mg PO BID 11/28/17 Cyanocobalamin (Vitamin B-12) [Vitamin B-12] 1,000 mcg PO DAILY 11/28/17 Docusate Sodium 300 mg PO HS 11/28/17 Donepezil HCl [Aricept] 10 mg PO DAILY 11/28/17 Dorzolamide HCl [Trusopt 2%] 1 drop OU TID 11/28/17 Ferrous Sulfate 325 mg PO BID 11/28/17 Folic Acid 1 mg PO DAILY 11/28/17 Glimepiride 1 mg PO DAILY 11/28/17 Haloperidol 0.5 mg PO HS 11/28/17 Insulin Glargine,Hum.rec.anlog [Lantus] 20 unit SQ HS 11/28/17 Latanoprost 0.005% Eye Drops [Xalatan 0.005% Eye Drops -] 1 drop OU HS 11/28/17 Pilocarpine 1% [Pilostat 1% -] 1 drop OU QID 11/28/17 Simvastatin [Zocor -] 20 mg PO HS 11/28/17 Sodium Chloride [Saline Nose [place]] 1 spray NS BID 11/28/17
[2017-12-13 15:45] VITALS: BP 89/60; PULSE 82; TEMP 98.5
== END 2017-12-13 20:30 | DRG 682 ==
LOC: JER 11:37 → JERBED 19:38 → J4W 23:46
PROVIDERS: ADMIT Family Medicine; ATTEND Family Medicine
PROC: 30233H1 Transfusion of Nonautologous Whole Blood into Peripheral Vein, Percutaneous Approach (ICD-10-PCS; 2017-11-29)
PROC: 0DH63UZ Insertion of Feeding Device into Stomach, Percutaneous Approach (ICD-10-PCS; 2017-12-11)
PROC: 0DJ08ZZ Inspection of Upper Intestinal Tract, Via Natural or Artificial Opening Endoscopic (ICD-10-PCS; principal; 2017-12-11 11:15)
DX: N17.9 Acute kidney failure, unspecified (principal); G92 Toxic encephalopathy; N39.0 Urinary tract infection, site not specified; E87.0 Hyperosmolality and hypernatremia; E46 Unspecified protein-calorie malnutrition; I24.8 Other forms of acute ischemic heart disease; R64 Cachexia; R62.7 Adult failure to thrive; N18.4 Chronic kidney disease, stage 4 (severe); E11.22 Type 2 diabetes mellitus with diabetic chronic kidney disease; I12.9 Hypertensive chronic kidney disease with stage 1 through stage 4 chronic kidney disease, or unspecified chronic kidney disease; E11.21 Type 2 diabetes mellitus with diabetic nephropathy; B96.89 Other specified bacterial agents as the cause of diseases classified elsewhere; Z68.22 Body mass index [BMI] 22.0-22.9, adult; F03.90 Unspecified dementia, unspecified severity, without behavioral disturbance, psychotic disturbance, mood disturbance, and anxiety; E86.0 Dehydration; D63.1 Anemia in chronic kidney disease; I25.10 Atherosclerotic heart disease of native coronary artery without angina pectoris; Z79.4 Long term (current) use of insulin; G20 Parkinson's disease; H40.9 Unspecified glaucoma; E78.5 Hyperlipidemia, unspecified; F32.9 Major depressive disorder, single episode, unspecified
CPT/HCPCS: 36415; 36430; 70450-TC; 71045-TC; 71046-TC-FY; 76775-TC; 76856-TC; 80048; 80053; 81003; 81015; 82140; 82272; 82550; 82553; 82570; 82607; 82728; 82962; 83036; 83540; 83550; 83605; 83735; 84100; 84300; 84439; 84443; 84484; 85025; 85610; 86140; 86850; 86900; 86901; 86922; 87040; 87086; 87186; 87804; 93005; 93010; 93306-TC; 97161-GP; 99283-25; J1644; J1756; P9038; P9058

== ENCOUNTER 2018-05-30 18:17 | Inpatient (IN) | payer OTHER ==
--- NOTE | 2018-05-30 18:30 | PDOC ---
History of Present Illness - General Chief Complaint: Altered Mental Status Stated Complaint: LOW O2 - History of Present Illness Initial Comments: 67 year old female with emale past medical history of anemia, stage IV CAD, anemia, IDDM, Parks[place] dementia, presents to the emergency department today from [facility] with the chief complaint of altered mental status and hypoxia. Per conversation with nursing staff and documents, she was found to be suddenly hypoxic to SATs of 79% earlier today and they placed her on increased NC but without much relief. EMS arrived and put her on 12 liters which improved her SATs to high 80s. They were inable to get a blood [place] [facility] [place] was noted to have presurs of 70s systolic at her NH during this hypoxia. No report of fevers,chills, nause,a vomiting, cough, or other symptoms by her NH. Of note she has had ESBL utis in the past. 05/30/18 20:58 Past History - Past Medical History Allergies/Adverse Reactions: Allergies Allergy/AdvReac Type Severity Reaction Status Date / Time No Known Allergies Allergy Verified 11/28/17 11:40 Home Medications: Ambulatory Orders Aspirin [Aspirin EC] 81 mg PO DAILY 11/28/17 Brimonidine Tartrate [Alphagan P 0.1% -] 1 drop OU TID 11/28/17 Calcium Carbonate/Vitamin D3 [Calcium 500-Vit D3 200 Caplet] 1 each PO DAILY Citalopram Hydrobromide [Celexa -] 10 mg PO DAILY 11/28/17 Cyanocobalamin (Vitamin B-12) [Vitamin B-12] 1,000 mcg PO DAILY 11/28/17 Docusate Sodium 300 mg PO HS 11/28/17 Dorzolamide HCl [Trusopt 2% -] 1 drop OU TID 11/28/17 Latanoprost 0.005% Eye Drops [Xalatan 0.005% Eye Drops -] 1 drop OU HS 11/28/17 Pilocarpine 1% [Pilostat 1% -] 1 drop OU QID 11/28/17 Amlodipine Besylate [Norvasc -] 2.5 mg PO DAILY tablet 12/13/17 Insulin Sliding Scale [Novolog Vial Sliding Scale -] 1 vial SQ HS units Ferrous Sulfate 7.5 ml PO DAILY 05/30/18 Omeprazole Pediatric Solution [Omeprazole Pediatric Oral Solution] 20 mg GT HS 05/30/18 Polyethylene Glycol 3350 [Glycolax] 17 gm PO DAILY 05/30/18 Timolol 0.25% [Timoptic 0.25%] 5 ml OD DAILY 05/30/18 Anemia: Yes Asthma: No Cancer: No Cardiac Disorders: No CVA: No COPD: No CHF: No Dementia: Yes Diabetes: Yes GI Disorders: No Disorders: No HTN: Yes Hypercholesterolemia: Yes Liver Disease: No Psychiatric Problems: Yes Seizures: No Thyroid Disease: No - Suicide/Smoking/Psychosocial Hx Smoking History: Unknown if ever smoked Have you smoked in the past 12 months: No Hx Alcohol Use: No (unknown) Drug/Substance Use Hx: No Substance Use Type: None Hx Substance Use Treatment: No Review of Systems - Review of Systems Able to Perform ROS?: No (AMS) *Physical Exam - Physical Exam General Appearance: Yes: Appropriately Dressed, Moderate Distress, Thin HEENT: positive: EOMI, CLAY, Normal ENT Inspection, Normal Voice Neck: positive: Trachea midline, Normal Thyroid, Supple. negative: Tender, Rigid Respiratory/Chest: positive: Respiratory Distress (tachypnic with occasional accessory muscle usage), Accessory Muscle Use, Labored Respiration, Rapid RR, Crackles, Rales. negative: Chest Tender, Lungs Clear, Normal Breath Sounds ( Bilateral lung romero coarse), Stridor, Wheezing Cardiovascular: positive: Regular Rhythm, Regular Rate Gastrointestinal/Abdominal: positive: Normal Bowel Sounds, Flat, Soft. negative : Tender Musculoskeletal: positive: Decreased Range of Motion, Muscle Spasm (contracted overall). negative: Normal Inspection Integumentary: positive: Normal Color, Dry, Warm, Other (stage IV ulcer on left heel without drainage) Neurologic: negative: Fully Oriented, Alert, Normal Mood/Affect, Normal Response ED Treatment Course - LABORATORY CBC & Chemistry Diagram: 05/30/18 18:50 05/30/18 18:50 Medical Decision Making - Medical Decision Making 67 year female with history of parkinsonism and anemia presenting with acute AMS and hypoxia. Our labs (BNP of 4K), CXR (congestive appearance with mild cephalization), and PE (bilateral coarse breath sounds) are consistent with diagnosis of new CHF. Not likely infectious as patient does nto have a an elevated WBC, fevers, and a clear UTI. Pressures are improved here in our ED after 1 L NS. Pressures maintained >100 systolic with MAPs >54 so will give small dose of lasix IV 20. Patient discussed [facility], Dr. Fu and medicine service [facility] for admission. Non rebreather flow decreased to 8 L because patient was SATing 100% on 15L for 2 hours. Patient signed out to [facility] and placed on venti-mask per agreed upon instructions. 05/30/18 22:21 *DC/Admit/Observation/Transfer Diagnosis at time of Disposition: Altered mental status Qualifiers: Altered mental status type: unspecified Qualified Code(s): R41.82 - Altered mental status, unspecified Acute CHF (congestive heart failure) Qualifiers: Heart failure type: unspecified Qualified Code(s): I50.9 - Heart failure, unspecified - Referrals - Patient Instructions - Post Discharge Activity
[2018-05-30] MEDS ORDERED: PIPERACILLIN/TAZOB 4.5 GM 4.5 GM in DEXTROSE 5%-WATER 100 ML IVPB ONE (18:51)
[2018-05-30] MEDS ORDERED: VANCOMYCIN 1,000 MG in DEXTROSE 5%-WATER - 250 ML IVPB ONE (18:51)
--- NOTE | 2018-05-30 18:51 | PDOC ---
Attending Attestation - HPI HPI: 05/30/18 21:26 The patient is a 67 year old female with significant past medical history of anemia, CAD, IDDM, Parkinson's dementia, sent to the ED from [facility] for altered mental status and hypoxia. Per OR staff, the patient was placed on nasal cannula without apparent relief. She was sent to the ED for further evaluation. No fever, vomiting, or cough. Patient is unable to provide remainder of history secondary to clinical condition. - Physicial Exam PE: 05/30/18 21:32 Constitutional: Awake. Moaning. Head: Normocephalic. Atraumatic Eyes: PERRL. EOMI. Conjunctivae are not pale. ENT: Mucous membranes are moist and intact. Posterior pharynx without exudates or erythema. Uvula midline. Neck: Supple. Full ROM. No lymphadenopathy. Cardiovascular: Tachycardic rate, Regular rhythm. Hypotensive. S1, S2 regular. Distal pulses are 2+ and symmetric. Pulmonary/Chest: Rhonchorous breath sounds bilaterally. Abdominal: Soft and non-distended. No rebound, guarding or rigidity. No organomegaly. No palpable masses. Good bowel sounds. Back: No CVA tenderness. Musculoskeletal: No edema. No cyanosis. No clubbing. Full range of motion in all extremities. Radial/pedal pulses are intact and 2+ bilaterally Skin: Skin is warm and dry. No petechiae. No purpura. Neurological: +Bilateral upper extremities are contracted. Gait unable to assess. Psychiatric: Unable to assess secondary to clinical condition. - Medical Decision Making 05/30/18 22:14 Documentation prepared by Taina Travis, acting as medical staff director for Anabel Valles DO. <Taina Travis - Last Filed: 05/30/18 21:26> - Resident Resident Name: Dre Westbrook - ED Attending Attestation I have performed the following: I have examined & evaluated the patient, The case was reviewed & discussed with the resident, I agree w/resident's findings & plan, Exceptions are as noted - Critical Care Time Total Critical Care Time: 60 Critical Care Statement: The care of this patient involved high complexity decision making to prevent further life threatening deterioration of the patient 's condition and/or to evaluate & treat vital organ system(s) failure or risk of failure. - Medical Decision Making 05/30/18 18:51 I, Dr. Anabel Valles, DO, attest that this document has been prepared under my direction and personally reviewed by me in its entirety. I further attest, that it accurately reflects all work, treatment, procedures and medical decision -making performed by me. 05/30/18 21:17 a/p: 67yo female sent from [facility] for eval of tachycardia, hypotension, altered ms -concern for sepsis -will start sepsis protocol -rhonchi on exam, concern for uti -will start broad spectrum abx -will send labs, cultures -will need admission -pt is DNI, but allows for CPR per molst -case discussed with Dr. Fu who accepts pt to icu 05/30/18 22:27 pt with pulm edema on cxr pressure improved acidotic on abg cr 2.5 bnp 4000 will give lasix new onset heart failure <Anabel Valles - Last Filed: 05/30/18 22:28> Heart Score/ECG Review - ECG Intrepretation Comment:: 05/30/18 21:22 sinus at 68, 1st degree av bloc, q waves anterior leads, rbbb, L axis, poor r wave progression, abnl ekg <Anabel Valles - Last Filed: 05/30/18 22:28>
[2018-05-30 19:07] LABS: BASO % 0.1 % (0-2.0); EOS % 0.2 % (0-4.5); HEMATOCRIT 26.4 % (32.4-45.2); HEMOGLOBIN 8.8 GM/dL (10.7-15.3); LYMPH % 2.2 % (8-40); MCH 31.8 pg (25.7-33.7); MCHC 33.4 g/dl (32.0-36.0); MEAN CELL VOLUME 95.3 fl (80-96); NEUT % 95.5 % (42.8-82.8); PLATELET COUNT 245 K/MM3 (134-434); RBC 2.77 M/mm3 (3.60-5.2); WHITE BLOOD COUNT 9.2 K/mm3 (4.0-10.0)
[2018-05-30 19:21] LABS: INR 0.96 (0.82-1.09); PROTHROMBIN TIME (PATIENT) 10.9 SEC (9.7-13.0)
[2018-05-30 19:23] LABS: ACTIVATED PTT 26.3 SECONDS (25.2-36.5)
[2018-05-30] MEDS ORDERED: PIPERACILLIN/TAZOB 4.5 GM 4.5 GM/100 ML BAG IVPB ONE (19:23)
[2018-05-30] MEDS ORDERED: VANCOMYCIN 1 GRAM (PRE-DOCKED) 1,000 MG/250 ML BAG IVPB ONE (19:23)
[2018-05-30 19:27] LABS: URINE APPEARANCE SLCLOUDY; URINE BILIRUBIN NEGATIVE (<2.0 mg/dL); URINE COLOR LTYELLOW; URINE GLUCOSE (UA) 1+ (NEGATIVE); URINE KETONE NEGATIVE (NEGATIVE); URINE LEUK ESTERASE NEGATIVE (NEGATIVE); URINE NITRITE NEGATIVE (NEGATIVE); URINE UROBILINOGEN NEGATIVE mg/dL (0.2-1.0)
[2018-05-30 19:31] LABS: ALBUMIN 2.2 g/dl (3.4-5.0); ALK PHOS 94 U/L (45-117); ANION GAP 10 (8-16); BILIRUBIN,TOTAL 0.2 mg/dL (0.2-1.0); BLOOD UREA NITROGEN 87 mg/dL (7-18); CALCIUM 8.8 mg/dL (8.5-10.1); CHLORIDE 99 mmol/L (98-107); CO2 24 mmol/L (21-32); CREATININE 2.5 mg/dL (0.55-1.02); GLUCOSE,RANDOM 275 mg/dL (74-106); SGOT/AST 24 U/L (15-37); SGPT/ALT 16 U/L (12-78); SODIUM 133 mmol/L (136-145); TOT PROT 6.4 g/dl (6.4-8.2)
[2018-05-30 20:35] LABS: URINE PROTEIN 2+ (NEGATIVE)
[2018-05-30 21:21] LABS: ARTERIAL BLD GAS O2 SATURATION 91.4 % (90-98.9); ARTERIAL BLOOD GAS BASE EXCESS -6.6 meq/l (-2-2); ARTERIAL BLOOD GAS PCO2 45.7 mmHg (35-45); ARTERIAL BLOOD GAS PO2 67.1 mmHg (80-100); ARTERIAL BLOOD GAS pH 7.26 (7.35-7.45); CARBOXYHEMOGLOBIN 1.6 gm% (0.5-2.0)
[2018-05-30 21:23] LABS: ALLENS TEST POSITIVE
[2018-05-30 21:25] LABS: EPI CELLS RARE /HPF (FEW); URINE BACTERIA RARE /hpf (NONE SEEN); URINE HYALINE CAST 1 /lpf
[2018-05-30] MEDS ORDERED: FUROSEMIDE 40 MG/4 ML INJECTABLE VIAL IVPUSH ONE (22:17)
[2018-05-30 22:56] LABS: ANISOCYTOSIS 2+; MACROCYTOSIS 1+; PLATELET ESTIMATE ADEQUATE
[2018-05-30] MEDS ORDERED: FUROSEMIDE 40 MG/4 ML INJECTABLE VIAL ONE (22:58)
--- NOTE | 2018-05-30 23:11 | HP ---
CHIEF COMPLAINT: hypoxia, hypotension PCP: Jayda HISTORY OF PRESENT ILLNESS: This is a 67 year old female with a past medical history of anemia, CKD4, IDDM, Parkinson's disease, Dementia, HTN, HLD, CAD who presented to the ED from [facility] with hypoxia and hypotension. Unable to obtain history or ROS from patient due to dementia. Information obtained from [place] paperwork sent over and previous charts. Oxygen saturation in NH 79% and SBP into the 70s. Pt was given 1L NS in ED and placed on NRB. ER course was notable for: (1) CXR with congestion (2) CT head without acute findings Recent Travel: pt denies PAST MEDICAL HISTORY: anemia, CKD4, IDDM, Parkinson's disease, Dementia, HTN, HLD, CAD PAST SURGICAL HISTORY: unk Social History: Smoking: unk Alcohol: unk Drugs: Family History: unk Allergies No Known Allergies Allergy (Verified 11/28/17 11:40) HOME MEDICATIONS: 3 Medication Instructions Recorded Aspirin [Aspirin EC] 81 mg PO DAILY 11/28/17 Brimonidine Tartrate [Alphagan P 1 drop OU TID 11/28/17 0.1% -] Calcium Carbonate/Vitamin D3 1 each PO DAILY 11/28/17 [Calcium 500-Vit D3 200 Caplet] Citalopram Hydrobromide [Celexa -] 10 mg PO DAILY 11/28/17 Cyanocobalamin (Vitamin B-12) 1,000 mcg PO DAILY 11/28/17 [Vitamin B-12] Docusate Sodium 300 mg PO HS 11/28/17 Dorzolamide HCl [Trusopt 2% -] 1 drop OU TID 11/28/17 Latanoprost 0.005% Eye Drops 1 drop OU HS 11/28/17 [Xalatan 0.005% Eye Drops -] Pilocarpine 1% [Pilostat 1% -] 1 drop OU QID 11/28/17 Amlodipine Besylate [Norvasc -] 2.5 mg PO DAILY tablet 12/13/17 Insulin Sliding Scale [Novolog 1 vial SQ HS units 12/13/17 Vial Sliding Scale -] Ferrous Sulfate 7.5 ml PO DAILY 05/30/18 Omeprazole Pediatric Solution 20 mg GT HS 05/30/18 [Omeprazole Pediatric Oral Solution] Polyethylene Glycol 3350 [Glycolax] 17 gm PO DAILY 05/30/18 Timolol 0.25% [Timoptic 0.25%] 5 ml OD DAILY 05/30/18 REVIEW OF SYSTEMS CONSTITUTIONAL: Absent: fever, chills, diaphoresis CARDIOVASCULAR: Present: hypotension RESPIRATORY: Present: hypoxia PHYSICAL EXAMINATION Vital Signs - 24 hr 3 05/30/18 05/30/18 05/30/18 18:27 18:35 18:45 Temperature 97.8 F 97.8 F Pulse Rate 68 66 Pulse Rate [ 66 Apical] Respiratory 26 H 26 H 26 H Rate Blood Pressure 122/74 65/40 Blood Pressure 69/43 [Left Arm] O2 Sat by Pulse 88 L 71 L 85 L Oximetry (%) 3 05/30/18 05/30/18 05/30/18 19:00 19:20 19:35 Temperature Pulse Rate Pulse Rate [ 71 70 Apical] Respiratory 24 24 Rate Blood Pressure Blood Pressure 116/75 96/46 [Left Arm] O2 Sat by Pulse 94 L 77 L 83 L Oximetry (%) 3 05/30/18 05/30/18 05/30/18 19:40 20:00 20:20 Temperature Pulse Rate Pulse Rate [ 68 65 66 Apical] Respiratory 18 20 18 Rate Blood Pressure Blood Pressure 94/45 102/50 101/53 [Left Arm] O2 Sat by Pulse 88 L 88 L 93 L Oximetry (%) 3 05/30/18 05/30/18 05/30/18 20:40 21:00 23:02 Temperature Pulse Rate Pulse Rate [ 68 70 72 Apical] Respiratory 18 18 28 H Rate Blood Pressure Blood Pressure 97/53 110/50 97/71 [Left Arm] O2 Sat by Pulse 92 L 95 97 Oximetry (%) GENERAL: Awake, alert, groaning, incoherent speech, in no acute distress. HEAD: Normal with no signs of trauma. EYES: Pupils equal, round and reactive to light, extraocular movements intact, sclera anicteric, conjunctiva clear. No lid lag. EARS, NOSE, THROAT: Ears normal, nares patent, oropharynx clear without exudates. Moist mucous membranes. NECK: Normal range of motion, supple without lymphadenopathy, JVD, or masses. LUNGS: Coarse breath sounds. mild crackles at bases. No wheezes, and no rhonchi. No accessory muscle use. HEART: Regular rate and rhythm, normal S1 and S2 without murmur, rub or gallop. ABDOMEN: Soft, nontender, not distended, normoactive bowel sounds, no guarding, no rebound, no masses. No hepatomegaly or splenomegaly. MUSCULOSKELETAL: Normal range of motion at all joints. No bony deformities or tenderness. No CVA tenderness. UPPER EXTREMITIES: 2+ pulses, warm, well-perfused. No cyanosis. No clubbing. No peripheral edema. LOWER EXTREMITIES: 2+ pulses, warm, well-perfused. No calf tenderness. No peripheral edema. NEUROLOGICAL: Cranial nerves II-XII intact. Normal speech. Normal gait. PSYCHIATRIC: Cooperative. Good eye contact. Appropriate mood and affect. SKIN: Warm, dry, normal turgor, normal capillary refill. excoriation right shoulder, erythematous, some crusting. left heel with w decubiti that intersect : left lateral aspect unstageable 2.5 x 2.4, + eschar, medial aspect 3.6 x 2.1cm beefy red, surrounding skin with erythema. left great toe with DTI on tip , deep red/purple area 0.8cm x 1.5cm surrounding skin WNL, right great toe with nail avulsion, right sacrum with open area, stage 2, 2.3cm x 0.7cm wound bed pink, surrounding skin and sacral area + redness. Laboratory Results - last 24 hr 3 05/30/18 05/30/18 05/30/18 09:07 09:07 18:50 WBC 9.2 RBC 2.77 L Hgb 8.8 L Hct 26.4 L MCV 95.3 MCH 31.8 MCHC 33.4 RDW 13.0 D Plt Count 245 MPV 8.0 Absolute Neuts (auto) 8.8 Neutrophils % 95.5 H Neutrophils % (Manual) 90.0 H Band Neutrophils % 6.0 Lymphocytes % 2.2 L D Lymphocytes % (Manual) 3.0 L Monocytes % 2.0 L Monocytes % (Manual) 1 L Eosinophils % 0.2 D Basophils % 0.1 Nucleated RBC % 0 Hypochromia 3+ Platelet Estimate Adequate Platelet Comment No clumping noted Anisocytosis 2+ Microcytosis 1+ Macrocytosis 1+ PT with INR INR PTT (Actin FS) Anticoagulation Therapy Puncture Site ABG pH ABG pCO2 at Pt Temp ABG pO2 at Pt Temp ABG HCO3 ABG O2 Sat (Measured) ABG O2 Content ABG Base Excess Kieran Test Carboxyhemoglobin Methemoglobin O2 Delivery Device Oxygen Flow Rate Vent Mode Vent Rate Mechanical Rate Pressure Support Vent Sodium Potassium Chloride Carbon Dioxide Anion Gap BUN Creatinine Creat Clearance w eGFR Random Glucose Lactic Acid Calcium Total Bilirubin AST ALT Alkaline Phosphatase Troponin I 0.02 B-Natriuretic Peptide 4187.94 H Total Protein Albumin Urine Color Urine Appearance Urine pH Ur Specific [place] Urine Protein Urine Glucose (UA) Urine Ketones Urine Blood Urine Nitrite Urine Bilirubin Urine Urobilinogen Ur Leukocyte Esterase Urine WBC (Auto) Urine RBC (Auto) Ur Epithelial Cells Urine Bacteria Hyaline Casts 3 05/30/18 05/30/18 05/30/18 18:50 18:50 18:50 WBC RBC Hgb Hct MCV MCH MCHC RDW Plt Count MPV Absolute Neuts (auto) Neutrophils % Neutrophils % (Manual) Band Neutrophils % Lymphocytes % Lymphocytes % (Manual) Monocytes % Monocytes % (Manual) Eosinophils % Basophils % Nucleated RBC % Hypochromia Platelet Estimate Platelet Comment Anisocytosis Microcytosis Macrocytosis PT with INR 10.90 INR 0.96 PTT (Actin FS) 26.3 Anticoagulation Therapy Puncture Site ABG pH ABG pCO2 at Pt Temp ABG pO2 at Pt Temp ABG HCO3 ABG O2 Sat (Measured) ABG O2 Content ABG Base Excess Kieran Test Carboxyhemoglobin Methemoglobin O2 Delivery Device Oxygen Flow Rate Vent Mode Vent Rate Mechanical Rate Pressure Support Vent Sodium 133 L Potassium 4.0 Chloride 99 Carbon Dioxide 24 Anion Gap 10 BUN 87 H Creatinine 2.5 H Creat Clearance w eGFR 19.10 Random Glucose 275 H Lactic Acid 1.4 Calcium 8.8 Total Bilirubin 0.2 AST 24 ALT 16 Alkaline Phosphatase 94 Troponin I B-Natriuretic Peptide Total Protein 6.4 Albumin 2.2 L Urine Color Urine Appearance Urine pH Ur Specific [place] Urine Protein Urine Glucose (UA) Urine Ketones Urine Blood Urine Nitrite Urine Bilirubin Urine Urobilinogen Ur Leukocyte Esterase Urine WBC (Auto) Urine RBC (Auto) Ur Epithelial Cells Urine Bacteria Hyaline Casts 3 05/30/18 05/30/18 19:20 21:00 WBC RBC Hgb Hct MCV MCH MCHC RDW Plt Count MPV Absolute Neuts (auto) Neutrophils % Neutrophils % (Manual) Band Neutrophils % Lymphocytes % Lymphocytes % (Manual) Monocytes % Monocytes % (Manual) Eosinophils % Basophils % Nucleated RBC % Hypochromia Platelet Estimate Platelet Comment Anisocytosis Microcytosis Macrocytosis PT with INR INR PTT (Actin FS) Anticoagulation Therapy No Result Required. Puncture Site Left radial ABG pH 7.26 L ABG pCO2 at Pt Temp 45.7 H ABG pO2 at Pt Temp 67.1 L ABG HCO3 19.7 L ABG O2 Sat (Measured) 91.4 ABG O2 Content 11.0 L ABG Base Excess -6.6 L Kieran Test Positive Carboxyhemoglobin 1.6 Methemoglobin 1.7 H O2 Delivery Device Non-rebreather Oxygen Flow Rate 15 l Vent Mode No Result Required. Vent Rate No Result Required. Mechanical Rate No Result Required. Pressure Support Vent No Result Required. Sodium Potassium Chloride Carbon Dioxide Anion Gap BUN Creatinine Creat Clearance w eGFR Random Glucose Lactic Acid Calcium Total Bilirubin AST ALT Alkaline Phosphatase Troponin I B-Natriuretic Peptide Total Protein Albumin Urine Color Ltyellow Urine Appearance Slcloudy Urine pH 5.0 Ur Specific [place] 1.015 Urine Protein 2+ H Urine Glucose (UA) 1+ H Urine Ketones Negative Urine Blood Negative Urine Nitrite Negative Urine Bilirubin Negative Urine Urobilinogen Negative Ur Leukocyte Esterase Negative Urine WBC (Auto) 1 Urine RBC (Auto) None Ur Epithelial Cells Rare Urine Bacteria Rare Hyaline Casts 1 ECG Sinus rhythm with 1st degree AV block with premature atrial complexes vent rate 68, QTC 487 left axis deviation incomplete right bundle branch block anterior infarct, age undetermined Radiology Reports CT head, noncontrast THIS IS A PRELIMINARY REPORT FROM [employer] Impression: No acute findings THIS DOCUMENT HAS BEEN ELECTRONICALLY SIGNED Hao Calle MD 05/31/2018 02:13 EST CXR official read pending, possible LLL infiltrate ASSESSMENT/PLAN: 67yF with PMH anemia, CKD4, IDDM, Parkinson's disease, Dementia, HTN, HLD, CAD presented to the ED with hypoxia and hypotension. Acute Hypoxic Respiratory failure - ? due to CHF vs PNA - given lasix 20mg in ED, monitor possible need for additional dosing - echo ordered - given vanc and zosyn in ed, cont same, ID consult - cardiology consult - monitor in ICU - tolerating 50% venti mask - consider CT chest Hypotension - s/p IVF now improved - cont to monitor - hold home norvasc Left heel pressure ulcer, unstageable - collagenase dressing daily left great toe DTI - dpd daily sacral stage 2 - allevyn as per protocol right great toenail avulsion - bacitracin and DPD daily DM - BGM with novolog sliding scale HTN/HLD - hold antihypertensives as pt was hypotensive - not on statin, PCP to f/u as outpatient Dementia/Parkinson's vs parkinsonism - supportive care DVT PPX - heparin SC FEN - hold further IVF given possible CHF - BMP this am - dysphagia diet if fully alert Dispo: Pt requires intense monitoring in the ICU. Visit type - Emergency Visit Emergency Visit: Yes ED Registration Date: 05/30/18 Care time: The patient presented to the Emergency Department on the above date and was hospitalized for further evaluation of their emergent condition. - New Patient This patient is new to me today: Yes Date on this admission: 05/31/18 - Critical Care Critical Care patient: Yes Total Critical Care Time (in minutes): 45 Critical Care Statement: The care of this patient involved high complexity decision making to prevent further life threatening deterioration of the patient 's condition and/or to evaluate & treat vital organ system(s) failure or risk of failure. Hospitalist Screening - Colonoscopy Questionnaire Colonoscopy Questionnaire: Colonoscopy Questionnaire - Patient: 50 - 75 years old and never had a screening colonoscopy: Unknown History of colon or rectal polyps, or CA: Unknown History of IBD, Crohn's disease or UC: Unknown History of abdominal radiation therapy as a child: Unknown - Relative: 1 with colon or rectal CA, or polyps at age 60 or younger: Unknown Colon or rectal CA diagnosed at age 45 or younger: Unknown Multiple relatives with colon or rectal CA: Unknown - Outcome: Screening Result: Negative Screen
[2018-05-30] MEDS ORDERED: ACETAMINOPHEN 1000 MG/100 ML VIAL (NON FORMULARY) IVPB ONE (23:45)
--- NOTE | 2018-05-31 02:22 | CONSULT ---
Consultation: REQUESTING PROVIDER: CONSULT REQUEST: We have been asked to medically evaluate this patient for ( intensive care). HISTORY OF PRESENT ILLNESS: history obtained from er notes patient in nonverbal , 67 year old female with female past medical history of anemia, stage IV CAD, anemia, IDDM, Parks[place] dementia, presents to the emergency department today from [facility] with the chief complaint of altered mental status and hypoxia. Per conversation with nursing staff and documents, she was found to be suddenly hypoxic to SATs of 79% earlier today and they placed her on increased NC but without much relief. EMS arrived and put her on 12 liters which improved her SATs to high 80s. They were inable to get a blood pressure on her at the [facility] and she was noted to have presurs of 70s systolic at her NH during this hypoxia. No report of fevers,chills, nause,a vomiting, cough, or other symptoms by her NH. Of note she has had ESBL utis in the past. in er patient was given 1 L of fluid and was diagnosed with new onset of chf later on got lasix 20mg. Patient also got vanco and zosyn in er for empirically. CT head was done CXR: congestion with possible left lower lobe infiltrate. urine no infection abg metabolic with respiratory acidosis. haemoglobin is stable since last admission. cr at base line. PHYSICAL EXAMINATION Vital Signs - 24 hr 05/30/18 05/30/18 05/30/18 18:27 18:35 18:45 Temperature 97.8 F 97.8 F Pulse Rate 68 66 Pulse Rate [ 66 Apical] Respiratory 26 H 26 H 26 H Rate Blood Pressure 122/74 65/40 Blood Pressure 69/43 [Left Arm] O2 Sat by Pulse 88 L 71 L 85 L Oximetry (%) 05/30/18 05/30/18 05/30/18 19:00 19:20 19:35 Temperature Pulse Rate Pulse Rate [ 71 70 Apical] Respiratory 24 24 Rate Blood Pressure Blood Pressure 116/75 96/46 [Left Arm] O2 Sat by Pulse 94 L 77 L 83 L Oximetry (%) 05/30/18 05/30/18 05/30/18 19:40 20:00 20:20 Temperature Pulse Rate Pulse Rate [ 68 65 66 Apical] Respiratory 18 20 18 Rate Blood Pressure Blood Pressure 94/45 102/50 101/53 [Left Arm] O2 Sat by Pulse 88 L 88 L 93 L Oximetry (%) 05/30/18 05/30/18 05/30/18 20:40 21:00 23:02 Temperature Pulse Rate Pulse Rate [ 68 70 72 Apical] Respiratory 18 18 28 H Rate Blood Pressure Blood Pressure 97/53 110/50 97/71 [Left Arm] O2 Sat by Pulse 92 L 95 97 Oximetry (%) 05/30/18 05/30/18 23:15 23:22 Temperature Pulse Rate 72 Pulse Rate [ 72 Apical] Respiratory Rate Blood Pressure Blood Pressure 96/54 [Left Arm] O2 Sat by Pulse 97 97 Oximetry (%) GENERAL: awake EARS, NOSE, THROAT: dry mucous membranes. LUNGS: Breath sounds equal, clear to auscultation bilaterally. mild crackels at bases HEART: s1s2 normal ABDOMEN: Soft, nontender, not distended, normoactive bowel sounds, no guarding, no rebound, UPPER EXTREMITIES: 2+ pulses, warm, well-perfused. contracted LOWER EXTREMITIES: warm, contracted, pressure ulcer on left heal granulation tissue with some dry necrotic patch. SKIN: Warm, dry, Laboratory Results - last 24 hr 05/30/18 05/30/18 05/30/18 09:07 09:07 18:50 WBC 9.2 RBC 2.77 L Hgb 8.8 L Hct 26.4 L MCV 95.3 MCH 31.8 MCHC 33.4 RDW 13.0 D Plt Count 245 MPV 8.0 Absolute Neuts (auto) 8.8 Neutrophils % 95.5 H Neutrophils % (Manual) 90.0 H Band Neutrophils % 6.0 Lymphocytes % 2.2 L D Lymphocytes % (Manual) 3.0 L Monocytes % 2.0 L Monocytes % (Manual) 1 L Eosinophils % 0.2 D Basophils % 0.1 Nucleated RBC % 0 Hypochromia 3+ Platelet Estimate Adequate Platelet Comment No clumping noted Anisocytosis 2+ Microcytosis 1+ Macrocytosis 1+ PT with INR INR PTT (Actin FS) Anticoagulation Therapy Puncture Site ABG pH ABG pCO2 at Pt Temp ABG pO2 at Pt Temp ABG HCO3 ABG O2 Sat (Measured) ABG O2 Content ABG Base Excess Kieran Test Carboxyhemoglobin Methemoglobin O2 Delivery Device Oxygen Flow Rate Vent Mode Vent Rate Mechanical Rate Pressure Support Vent Sodium Potassium Chloride Carbon Dioxide Anion Gap BUN Creatinine Creat Clearance w eGFR Random Glucose Lactic Acid Calcium Total Bilirubin AST ALT Alkaline Phosphatase Troponin I 0.02 B-Natriuretic Peptide 4187.94 H Total Protein Albumin Urine Color Urine Appearance Urine pH Ur Specific Michael Urine Protein Urine Glucose (UA) Urine Ketones Urine Blood Urine Nitrite Urine Bilirubin Urine Urobilinogen Ur Leukocyte Esterase Urine WBC (Auto) Urine RBC (Auto) Ur Epithelial Cells Urine Bacteria Hyaline Casts 05/30/18 05/30/18 05/30/18 18:50 18:50 18:50 WBC RBC Hgb Hct MCV MCH MCHC RDW Plt Count MPV Absolute Neuts (auto) Neutrophils % Neutrophils % (Manual) Band Neutrophils % Lymphocytes % Lymphocytes % (Manual) Monocytes % Monocytes % (Manual) Eosinophils % Basophils % Nucleated RBC % Hypochromia Platelet Estimate Platelet Comment Anisocytosis Microcytosis Macrocytosis PT with INR 10.90 INR 0.96 PTT (Actin FS) 26.3 Anticoagulation Therapy Puncture Site ABG pH ABG pCO2 at Pt Temp ABG pO2 at Pt Temp ABG HCO3 ABG O2 Sat (Measured) ABG O2 Content ABG Base Excess Kieran Test Carboxyhemoglobin Methemoglobin O2 Delivery Device Oxygen Flow Rate Vent Mode Vent Rate Mechanical Rate Pressure Support Vent Sodium 133 L Potassium 4.0 Chloride 99 Carbon Dioxide 24 Anion Gap 10 BUN 87 H Creatinine 2.5 H Creat Clearance w eGFR 19.10 Random Glucose 275 H Lactic Acid 1.4 Calcium 8.8 Total Bilirubin 0.2 AST 24 ALT 16 Alkaline Phosphatase 94 Troponin I B-Natriuretic Peptide Total Protein 6.4 Albumin 2.2 L Urine Color Urine Appearance Urine pH Ur Specific Michael Urine Protein Urine Glucose (UA) Urine Ketones Urine Blood Urine Nitrite Urine Bilirubin Urine Urobilinogen Ur Leukocyte Esterase Urine WBC (Auto) Urine RBC (Auto) Ur Epithelial Cells Urine Bacteria Hyaline Casts 05/30/18 05/30/18 19:20 21:00 WBC RBC Hgb Hct MCV MCH MCHC RDW Plt Count MPV Absolute Neuts (auto) Neutrophils % Neutrophils % (Manual) Band Neutrophils % Lymphocytes % Lymphocytes % (Manual) Monocytes % Monocytes % (Manual) Eosinophils % Basophils % Nucleated RBC % Hypochromia Platelet Estimate Platelet Comment Anisocytosis Microcytosis Macrocytosis PT with INR INR PTT (Actin FS) Anticoagulation Therapy No Result Required. Puncture Site Left radial ABG pH 7.26 L ABG pCO2 at Pt Temp 45.7 H ABG pO2 at Pt Temp 67.1 L ABG HCO3 19.7 L ABG O2 Sat (Measured) 91.4 ABG O2 Content 11.0 L ABG Base Excess -6.6 L Kieran Test Positive Carboxyhemoglobin 1.6 Methemoglobin 1.7 H O2 Delivery Device Non-rebreather Oxygen Flow Rate 15 l Vent Mode No Result Required. Vent Rate No Result Required. Mechanical Rate No Result Required. Pressure Support Vent No Result Required. Sodium Potassium Chloride Carbon Dioxide Anion Gap BUN Creatinine Creat Clearance w eGFR Random Glucose Lactic Acid Calcium Total Bilirubin AST ALT Alkaline Phosphatase Troponin I B-Natriuretic Peptide Total Protein Albumin Urine Color Ltyellow Urine Appearance Slcloudy Urine pH 5.0 Ur Specific Michael 1.015 Urine Protein 2+ H Urine Glucose (UA) 1+ H Urine Ketones Negative Urine Blood Negative Urine Nitrite Negative Urine Bilirubin Negative Urine Urobilinogen Negative Ur Leukocyte Esterase Negative Urine WBC (Auto) 1 Urine RBC (Auto) None Ur Epithelial Cells Rare Urine Bacteria Rare Hyaline Casts 1 Active Medications Generic Name Dose Route Start Last Admin Trade Name Freq PRN Reason Stop Dose Admin Amino Acids 30 ml 05/31/18 08:00 Prosource No Carb Liquid Pkt PO BID@0800,1730 [facility] Aspirin 81 mg 05/31/18 10:00 Ecotrin - NR DAILY [facility] Brimonidine Tartrate 1 drop 05/31/18 06:00 Alphagan P 0.1% - OU TID [facility] Calcium Carbonate/Cholecalciferol 1 tab 05/31/18 10:00 Os-Isacc 500+D - GT DAILY [facility] Chlorhexidine Gluconate 1 applic 05/31/18 22:00 Hibiclens For Decolonization - TP HS [facility] Citalopram Hydrobromide 10 mg 05/31/18 10:00 Celexa - GT DAILY [facility] Cyanocobalamin 1,000 mcg 05/31/18 10:00 Vitamin B12 - GT DAILY [facility] Docusate Sodium 300 mg 05/31/18 10:00 Colace Liquid - GT DAILY [facility] Dorzolamide HCl 1 drop 05/31/18 06:00 Trusopt 2% OU TID [facility] Ferrous Sulfate 450 mg 05/31/18 10:00 Feosol GT DAILY [facility] Heparin Sodium (Porcine) 5,000 unit 05/31/18 10:00 Heparin - SQ BID [facility] Piperacillin Sod/Tazobactam 50 mls @ 100 mls/hr 07/20/18 04:00 Sod 2.25 gm/ Dextrose IVPB 05/31/18 04:29 ONCE ONE Protocol Insulin Aspart 1 vial 05/31/18 22:00 Novolog Vial Sliding Scale - SQ HS [facility] Protocol Latanoprost 1 drop 05/31/18 22:00 Xalatan 0.005% Eye Drops - OU HS [facility] Mupirocin 1 applic 05/31/18 10:00 Bactroban Ointment (For Decolonization) - NS 06/05/18 09:59 BID [facility] Pilocarpine HCl 1 drop 05/31/18 10:00 Pilostat 1% - OU QID [facility] Polyethylene Glycol 17 gm 05/31/18 10:00 Miralax (For Bowel Prep) - PO DAILY [facility] Ranitidine HCl 150 mg 05/31/18 10:00 Zantac Oral Solution - PO BID [facility] Timolol Maleate 1 drop 05/31/18 10:00 Timoptic 0.25% OD DAILY [facility] ASSESSMENT/PLAN: respiratory failure; likely from chf, pneumonitis oxygen to maintain spo2> 90 continue antibiotics as per ID I and o low salt diet daily weight monitor vitals. cardiac monitoring. ECHO. cardiology consult. ID consult. duoneb neb DNI repeat abg in am Altered mental status: likely metabolic elcepalopathy, medicine related, infection, dehydration, hypoxia. CT head: no acute pathology swallow eval hold celexa aspiration precaution keep head end elevated. Left foot pressure ulcer daily dressing. avoid pressure on left heal. anemia likely due to CKD, stable from last admission CKD stable avoid nephrotoxic drugs DM bgm novolog sliding scale. HLD continue home med Parkinson's disease continue home med glaucoma - cont home eye gtt DVT PPX - heparin TID y. Visit type - Emergency Visit Emergency Visit: Yes ED Registration Date: 05/30/18 Care time: The patient presented to the Emergency Department on the above date and was hospitalized for further evaluation of their emergent condition. - New Patient This patient is new to me today: Yes Date on this admission: 06/04/18 - Critical Care Critical Care patient: Yes Total Critical Care Time (in minutes): 45 Critical Care Statement: The care of this patient involved high complexity decision making to prevent further life threatening deterioration of the patient 's condition and/or to evaluate & treat vital organ system(s) failure or risk of failure.
[2018-05-31] MEDS ORDERED: PIPERACILLIN/TAZOB 2.25 GM 2.25 GM in DEXTROSE 5%-WATER - 50 ML IVPB ONE (04:00)
[2018-05-31] MEDS ORDERED: DEXTROSE 5%-WATER - 50 ML IVPB ONE (05:57)
[2018-05-31] MEDS ORDERED: PIPERACILLIN/TAZOBACTAM 2.25 GM VIAL IVPB ONE (05:57)
[2018-05-31] MEDS: BRIMONIDINE TARTRATE 0.1% OPHTHALMIC 5 ML BOTTLE OU SCH ×3 (06:19→23:26)
[2018-05-31] MEDS: DORZOLAMIDE 2% HCL OPHTHALMIC SOLUTION 10 ML BOTTLE OU SCH ×3 (06:21→23:27)
[2018-05-31 07:26] LABS: ARTERIAL BLD GAS O2 SATURATION 98.8 % (90-98.9); ARTERIAL BLOOD GAS BASE EXCESS -4.9 meq/l (-2-2); ARTERIAL BLOOD GAS PCO2 37.9 mmHg (35-45); ARTERIAL BLOOD GAS pH 7.34 (7.35-7.45)
[2018-05-31 07:31] LABS: ALLENS TEST POSITIVE
--- NOTE | 2018-05-31 07:36 | PN ---
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, Physician Chief Complaint: ID Consult dictated In short Acute respiratory failure with multiple possible causes including sepsis and pneumonia - Current Medication List Current Medications: Active Medications Albuterol/Ipratropium (Duoneb -) 1 amp NEB RTID [facility] Amino Acids (Prosource No Carb Liquid Pkt) 30 ml PO BID@0800,1730 [facility] Aspirin (Ecotrin -) 81 mg NR DAILY [facility] Bacitracin (Bacitracin -) 1 applic TP DAILY [facility] Brimonidine Tartrate (Alphagan P 0.1% -) 1 drop OU TID [facility] Last Admin: 05/31/18 06:19 Dose: 1 drop Calcium Carbonate/Cholecalciferol (Os-Isacc 500+D -) 1 tab GT DAILY [facility] Chlorhexidine Gluconate (Hibiclens For Decolonization -) 1 applic TP HS [facility] Citalopram Hydrobromide (Celexa -) 10 mg GT DAILY [facility] Collagenase (Santyl -) 1 applic TP DAILY [facility]; Protocol Cyanocobalamin (Vitamin B12 -) 1,000 mcg GT DAILY [facility] Docusate Sodium (Colace Liquid -) 300 mg GT DAILY [facility] Dorzolamide HCl (Trusopt 2%) 1 drop OU TID [facility] Last Admin: 05/31/18 06:21 Dose: 1 drop Ferrous Sulfate (Feosol) 450 mg GT DAILY [facility] Heparin Sodium (Porcine) (Heparin -) 5,000 unit SQ BID [facility] Insulin Aspart (Novolog Vial Sliding Scale -) 1 vial SQ HS [facility]; Protocol Latanoprost (Xalatan 0.005% Eye Drops -) 1 drop OU HS [facility] Mupirocin (Bactroban Ointment (For Decolonization) -) 1 applic NS BID [facility] Stop: 06/05/18 09:59 Pilocarpine HCl (Pilostat 1% -) 1 drop OU QID [facility] Polyethylene Glycol (Miralax (For Bowel Prep) -) 17 gm PO DAILY [facility] Ranitidine HCl (Zantac Oral Solution -) 150 mg PO BID [facility] Timolol Maleate (Timoptic 0.25%) 1 drop OD DAILY [facility] - Objective Vital Signs: Vital Signs Temperature 98.4 F 05/31/18 06:00 Pulse Rate 70 05/31/18 06:00 Respiratory Rate 18 05/31/18 06:00 Blood Pressure 110/55 05/31/18 06:00 O2 Sat by Pulse Oximetry (%) 97 05/31/18 02:26 Labs: CBC, BMP 05/30/18 18:50 05/30/18 18:50 INR, PTT INR 0.96 (0.82-1.09) 05/30/18 18:50 Problem List - Problems (1) Sepsis Code(s): A41.9 - SEPSIS, UNSPECIFIED ORGANISM (2) Acute CHF (congestive heart failure) Code(s): I50.9 - HEART FAILURE, UNSPECIFIED Qualifiers: Heart failure type: unspecified Qualified Code(s): I50.9 - Heart failure, unspecified (3) Pneumonia Code(s): J18.9 - PNEUMONIA, UNSPECIFIED ORGANISM (4) ESBL (extended spectrum beta-lactamase) producing bacteria infection Code(s): A49.9 - BACTERIAL INFECTION, UNSPECIFIED; Z16.12 - EXTENDED SPECTRUM BETA LACTAMASE (ESBL) RESISTANCE Assessment/Plan Microbiology 11/28/17 13:00 Urine - Urine Clean Catch Urine Culture - Final Morganella Morganii Klebsiella Pneumoniae - Esbl Laboratory Tests 05/30/18 05/30/18 05/30/18 18:50 18:50 19:20 WBC 9.2 Hgb 8.8 L Hct 26.4 L Plt Count 245 Neutrophils % (Manual) 90.0 H ABG pH Creat Clearance w eGFR 19.10 Ur Leukocyte Esterase Negative Urine WBC (Auto) 1 Urine RBC (Auto) None 05/30/18 21:00 WBC Hgb Hct Plt Count Neutrophils % (Manual) ABG pH 7.26 L Creat Clearance w eGFR Ur Leukocyte Esterase Urine WBC (Auto) Urine RBC (Auto) Assessment Assume sepsis related respirator failure ? multiple possible sources H/O ESBL Nov 29 Plan Await cultures Isolate for ESBL Got Vanco check level now Ertepenem 500mg daily for ? ESBL infection Margot PISANO
[2018-05-31] MEDS: ALBUTEROL SO4 2.5/IPRATROPIUM 0.5 INH SOL 3 ML VIAL.NEB. NEB SCH ×3 (08:12→21:15)
--- NOTE | 2018-05-31 08:15 | CONS ---
DATE OF CONSULTATION: DATE OF DICTATION: 05/31/2018 This is a 67-year-old female with multiple comorbidities from [facility] sent with hypotension and hypoxemia. Due to severe dementia, the patient cannot offer any history. The past medical history includes anemia of chronic kidney disease, insulin-dependent diabetes, Parkinson's disease, hypertension, coronary artery disease, and of course dementia. In the long-term her saturations were noted to be 70, with a systolic blood pressure of 70. Normal saline was administered in the emergency room, and she was placed on a nonrebreather mask. I am asked to see her now for evaluation of sepsis. She has no fever, and her admitting white count was normal. She has a history of ESBL urinary tract infections in the past. Chest x-ray showed what appeared to be congestion, but an infiltrate could not be ruled out. MEDICATIONS IN THE [facility]: Aspirin, amlodipine, insulin, omeprazole. ALLERGIES: None known. FAMILY HISTORY: Unobtainable. SOCIAL HISTORY: Unknown if ever smoked or drank alcohol. REVIEW OF SYSTEMS: Respiratory: Respiratory failure, shortness of breath Cardiac: No history of chest pain, palpitations, syncope. Gastrointestinal: PEG feeding tube. No abdominal pain, diarrhea, vomiting. Genitourinary: Incontinent of urine. No gross hematuria noted. PHYSICAL EXAMINATION: General: Physical examination revealed a frail, elderly woman unable to offer any meaningful verbal communication. Vital Signs: The temperature 98.4, pulse 70, blood pressure 110/55, respirations 18. HEENT: Pupils reactive to light. Neck: Full range of motion, supple. Lungs: Basilar crackles. No wheezing, rhonchi heard. Heart: S1, S2. Regular rhythm without audible murmur or gallop. Abdomen: Soft, nontender. Normoactive bowel sounds. PEG feeding tube. No organomegaly. Extremities: Revealed lower extremity decubitus ulcers, left heel laterally and medially. EKG with sinus rhythm, 1st-degree AV block, PACs, incomplete right bundle branch block. Chest x-ray reviewed, shows possible infiltrate, left lung. ASSESSMENT: Acute respiratory failure. Differential diagnosis would have to include sepsis with multiple possible sources including pneumonia; urinary tract, which she has had before; and skin source from lower extremity decubitus ulcers. She has a history of an extended-spectrum beta-lactamase in her urine from November of 2017, and clearly based on her comorbidities and clinical presentation, the possibility of sepsis needs to be treated. She has received vancomycin already and what appears to be a dose of Zosyn on admission. At this point I would obtain a vancomycin level in view of her chronic kidney disease and start her on ertapenem 500 mg daily pending blood and urine cultures. She should be maintained on contact isolation for multidrug-resistant organisms. MIREILLE ARROYO M.D. [id number]
[2018-05-31] MEDS: AMINO ACIDS/PROTEIN HYDROLYS 30 ML LIQUID.PKT PO SCH ×2 (08:58→17:19)
[2018-05-31] MEDS ORDERED: PT OWN MED DRAWER 7, Y5N ONE ×2 (09:54→12:04)
[2018-05-31] MEDS ORDERED: RANITIDINE HCL 150 MG/10 ML UNIT-DOSE PO SCH (10:00)
[2018-05-31] MEDS ORDERED: HEPARIN NA (PORCINE) 5,000 UNITS/ML 1ML VIAL SQ SCH (10:00)
[2018-05-31] MEDS ORDERED: DOCUSATE NA 100 MG/10 ML UNIT-DOSE CUPS GT SCH (10:00)
[2018-05-31] MEDS ORDERED: BACITRACIN 15 GM TUBE TOPICAL OINTMENT TP SCH (10:00)
[2018-05-31] MEDS ORDERED: CYANOCOBALAMIN 1,000 MCG TABLET (FP) GT SCH (10:00)
[2018-05-31] MEDS ORDERED: ASPIRIN COATED 81 MG TABLET.EC NR SCH (10:00)
[2018-05-31] MEDS ORDERED: TIMOLOL 0.25% OPHTHALMIC SOL 5 ML BOTTLE OD SCH (10:00)
[2018-05-31] MEDS ORDERED: MUPIROCIN 2% TOPICAL OINTMENT FOR DECOLONIZATION NS SCH (10:00)
[2018-05-31] MEDS ORDERED: POLYETHYLENE GLYCOL 3350 255 GM BTL PO SCH (10:00)
[2018-05-31] MEDS ORDERED: CALCIUM 500MG/VIT-D 200 UNITS COMBO TABLET (FP) GT SCH (10:00)
[2018-05-31] MEDS ORDERED: FERROUS SO4 300 MG/5 ML ORAL SOLN UNIT DOSE CUPS GT SCH (10:00)
[2018-05-31] MEDS ORDERED: ERTAPENEM SODIUM 0.5 GM in SODIUM CHLORIDE 50 ML IVPB SCH (10:00)
[2018-05-31] MEDS ORDERED: COLLAGENASE CLOSTRIDIUM HIST. 30 GRAMS TUBE TP SCH (10:00)
[2018-05-31] MEDS ORDERED: CITALOPRAM HYDROBROMIDE 10 MG TABLET (FP) GT SCH (10:00)
[2018-05-31 10:20] LABS: BASO % 0.4 % (0-2.0); HEMATOCRIT 24.6 % (32.4-45.2); HEMOGLOBIN 8.1 GM/dL (10.7-15.3); LYMPH % 1.4 % (8-40); MCH 31.4 pg (25.7-33.7); MCHC 32.9 g/dl (32.0-36.0); MEAN CELL VOLUME 95.5 fl (80-96); MONO % 1.2 % (3.8-10.2); PLATELET COUNT 172 K/MM3 (134-434); RBC 2.58 M/mm3 (3.60-5.2); WHITE BLOOD COUNT 13.7 K/mm3 (4.0-10.0)
[2018-05-31 10:50] LABS: ALBUMIN 2.2 g/dl (3.4-5.0); ANION GAP 11 (8-16); BILIRUBIN,TOTAL 0.1 mg/dL (0.2-1.0); BLOOD UREA NITROGEN 79 mg/dL (7-18); CALCIUM 8.5 mg/dL (8.5-10.1); CHLORIDE 101 mmol/L (98-107); CO2 22 mmol/L (21-32); CREATININE 2.4 mg/dL (0.55-1.02); GLUCOSE,RANDOM 240 mg/dL (74-106); MAGNESIUM 1.8 mg/dL (1.8-2.4); PHOSPHOROUS 4.7 mg/dL (2.5-4.9); POTASSIUM 3.7 mmol/L (3.5-5.1); SGOT/AST 30 U/L (15-37); SGPT/ALT 16 U/L (12-78); SODIUM 134 mmol/L (136-145); TOT PROT 6.4 g/dl (6.4-8.2)
[2018-05-31 10:51] LABS: ALK PHOS 78 U/L (45-117)
[2018-05-31] MEDS ORDERED: SODIUM CHLORIDE 1,000 ML IV SCH (11:30)
--- NOTE | 2018-05-31 12:03 | PN ---
Teaching Attending Note Name of Resident: Luther Macias ATTENDING PHYSICIAN STATEMENT I saw and evaluated the patient. I reviewed the resident's note and discussed the case with the resident. I agree with the resident's findings and plan as documented. SUBJECTIVE: Patient seen and examined in the ICU. Moaning, not able to provide a history. Hemodynamics have been stable off pressors. Saturation improved on NC O2. Intake & Output 05/28/18 05/29/18 05/30/18 05/31/18 23:59 23:59 23:59 23:59 Intake Total 2300 50 Output Total 140 320 Balance 2160 -270 Weight 120 lb 94 lb 12.78 oz Last Vital Signs Temp Pulse Resp BP Pulse Ox 97.7 F 70 21 103/72 97 05/31/18 10:00 05/31/18 10:00 05/31/18 10:00 05/31/18 10:00 05/31/18 09:00 Active Medications Albuterol/Ipratropium (Duoneb -) 1 amp NEB RTID [facility] Last Admin: 05/31/18 08:12 Dose: 1 amp Amino Acids (Prosource No Carb Liquid Pkt) 30 ml PO BID@0800,1730 [facility] Last Admin: 05/31/18 08:58 Dose: 30 ml Aspirin (Ecotrin -) 81 mg NR DAILY [facility] Last Admin: 05/31/18 09:01 Dose: 81 mg Bacitracin (Bacitracin -) 1 applic TP DAILY [facility] Brimonidine Tartrate (Alphagan P 0.1% -) 1 drop OU TID [facility] Last Admin: 05/31/18 06:19 Dose: 1 drop Calcium Carbonate/Cholecalciferol (Os-Isacc 500+D -) 1 tab GT DAILY [facility] Chlorhexidine Gluconate (Hibiclens For Decolonization -) 1 applic TP HS [facility] Citalopram Hydrobromide (Celexa -) 10 mg GT DAILY [facility] Collagenase (Santyl -) 1 applic TP DAILY [facility]; Protocol Last Admin: 05/31/18 09:13 Dose: 1 applic Cyanocobalamin (Vitamin B12 -) 1,000 mcg GT DAILY [facility] Docusate Sodium (Colace Liquid -) 300 mg GT DAILY [facility] Dorzolamide HCl (Trusopt 2%) 1 drop OU TID [facility] Last Admin: 05/31/18 06:21 Dose: 1 drop Ferrous Sulfate (Feosol) 450 mg GT DAILY [facility] Last Admin: 05/31/18 09:01 Dose: 450 mg Heparin Sodium (Porcine) (Heparin -) 5,000 unit SQ BID [facility] Last Admin: 05/31/18 09:01 Dose: 5,000 unit Ertapenem 0.5 gm/ Sodium (Chloride) 50 mls @ 50 mls/hr IVPB DAILY [facility]; Protocol Last Admin: 05/31/18 09:13 Dose: 50 mls/hr Sodium Chloride (Normal Saline -) 1,000 mls @ 75 mls/hr IV ASDIR [facility] Insulin Aspart (Novolog Vial Sliding Scale -) 1 vial SQ HS [facility]; Protocol Latanoprost (Xalatan 0.005% Eye Drops -) 1 drop OU HS [facility] Mupirocin (Bactroban Ointment (For Decolonization) -) 1 applic NS BID [facility] Stop: 06/05/18 09:59 Last Admin: 05/31/18 09:02 Dose: 1 applic Pilocarpine HCl (Pilostat 1% -) 1 drop OU QID [facility] Polyethylene Glycol (Miralax (For Bowel Prep) -) 17 gm PO DAILY [facility] Ranitidine HCl (Zantac Oral Solution -) 150 mg PO BID [facility] Last Admin: 05/31/18 09:01 Dose: 150 mg Timolol Maleate (Timoptic 0.25%) 1 drop OD DAILY [facility] GENERAL: awake, moaning, NAD EARS, NOSE, THROAT: dry mucous membranes. CARDIOVASCULAR: S1S2, regular LUNGS: Breath sounds equal, clear to auscultation bilaterally. mild crackels at bases HEART: S1S2 normal ABDOMEN: Soft, nontender, not distended, normoactive bowel sounds, no guarding, no rebound, UPPER EXTREMITIES: 2+ pulses, warm, well-perfused. contracted LOWER EXTREMITIES: warm, contracted, pressure ulcer on left heal granulation tissue with some dry necrotic patch. SKIN: Warm, dry Laboratory Results - last 24 hr 05/30/18 05/30/18 05/30/18 09:07 09:07 18:50 WBC 9.2 RBC 2.77 L Hgb 8.8 L Hct 26.4 L MCV 95.3 MCH 31.8 MCHC 33.4 RDW 13.0 D Plt Count 245 MPV 8.0 Absolute Neuts (auto) 8.8 Neutrophils % 95.5 H Neutrophils % (Manual) 90.0 H Band Neutrophils % 6.0 Lymphocytes % 2.2 L D Lymphocytes % (Manual) 3.0 L Monocytes % 2.0 L Monocytes % (Manual) 1 L Eosinophils % 0.2 D Basophils % 0.1 Nucleated RBC % 0 Hypochromia 3+ Platelet Estimate Adequate Platelet Comment No clumping noted Anisocytosis 2+ Microcytosis 1+ Macrocytosis 1+ PT with INR INR PTT (Actin FS) Anticoagulation Therapy Puncture Site ABG pH ABG pCO2 at Pt Temp ABG pO2 at Pt Temp ABG HCO3 ABG O2 Sat (Measured) ABG O2 Content ABG Base Excess Kieran Test Carboxyhemoglobin Methemoglobin O2 Delivery Device Oxygen Flow Rate Vent Mode Vent Rate Mechanical Rate PEEP Pressure Support Vent Sodium Potassium Chloride Carbon Dioxide Anion Gap BUN Creatinine Creat Clearance w eGFR Random Glucose Lactic Acid Calcium Phosphorus Magnesium Total Bilirubin AST ALT Alkaline Phosphatase Creatine Kinase Troponin I 0.02 B-Natriuretic Peptide 4187.94 H Total Protein Albumin Urine Color Urine Appearance Urine pH Ur Specific Dil[place] Urine Protein Urine Glucose (UA) Urine Ketones Urine Blood Urine Nitrite Urine Bilirubin Urine Urobilinogen Ur Leukocyte Esterase Urine WBC (Auto) Urine RBC (Auto) Ur Epithelial Cells Urine Bacteria Hyaline Casts Random Vancomycin 05/30/18 05/30/18 05/30/18 18:50 18:50 18:50 WBC RBC Hgb Hct MCV MCH MCHC RDW Plt Count MPV Absolute Neuts (auto) Neutrophils % Neutrophils % (Manual) Band Neutrophils % Lymphocytes % Lymphocytes % (Manual) Monocytes % Monocytes % (Manual) Eosinophils % Basophils % Nucleated RBC % Hypochromia Platelet Estimate Platelet Comment Anisocytosis Microcytosis Macrocytosis PT with INR 10.90 INR 0.96 PTT (Actin FS) 26.3 Anticoagulation Therapy Puncture Site ABG pH ABG pCO2 at Pt Temp ABG pO2 at Pt Temp ABG HCO3 ABG O2 Sat (Measured) ABG O2 Content ABG Base Excess Kieran Test Carboxyhemoglobin Methemoglobin O2 Delivery Device Oxygen Flow Rate Vent Mode Vent Rate Mechanical Rate PEEP Pressure Support Vent Sodium 133 L Potassium 4.0 Chloride 99 Carbon Dioxide 24 Anion Gap 10 BUN 87 H Creatinine 2.5 H Creat Clearance w eGFR 19.10 Random Glucose 275 H Lactic Acid 1.4 Calcium 8.8 Phosphorus Magnesium Total Bilirubin 0.2 AST 24 ALT 16 Alkaline Phosphatase 94 Creatine Kinase Troponin I B-Natriuretic Peptide Total Protein 6.4 Albumin 2.2 L Urine Color Urine Appearance Urine pH Ur Specific [place] Urine Protein Urine Glucose (UA) Urine Ketones Urine Blood Urine Nitrite Urine Bilirubin Urine Urobilinogen Ur Leukocyte Esterase Urine WBC (Auto) Urine RBC (Auto) Ur Epithelial Cells Urine Bacteria Hyaline Casts Random Vancomycin 05/30/18 05/30/18 05/31/18 19:20 21:00 00:35 WBC RBC Hgb Hct MCV MCH MCHC RDW Plt Count MPV Absolute Neuts (auto) Neutrophils % Neutrophils % (Manual) Band Neutrophils % Lymphocytes % Lymphocytes % (Manual) Monocytes % Monocytes % (Manual) Eosinophils % Basophils % Nucleated RBC % Hypochromia Platelet Estimate Platelet Comment Anisocytosis Microcytosis Macrocytosis PT with INR INR PTT (Actin FS) Anticoagulation Therapy No Result Required. Puncture Site Left radial ABG pH 7.26 L ABG pCO2 at Pt Temp 45.7 H ABG pO2 at Pt Temp 67.1 L ABG HCO3 19.7 L ABG O2 Sat (Measured) 91.4 ABG O2 Content 11.0 L ABG Base Excess -6.6 L Kieran Test Positive Carboxyhemoglobin 1.6 Methemoglobin 1.7 H O2 Delivery Device Non-rebreather Oxygen Flow Rate 15 l Vent Mode No Result Required. Vent Rate No Result Required. Mechanical Rate No Result Required. PEEP Pressure Support Vent No Result Required. Sodium Potassium Chloride Carbon Dioxide Anion Gap BUN Creatinine Creat Clearance w eGFR Random Glucose Lactic Acid Calcium Phosphorus Magnesium Total Bilirubin AST ALT Alkaline Phosphatase Creatine Kinase 83 Troponin I 0.04 B-Natriuretic Peptide Total Protein Albumin Urine Color Ltyellow Urine Appearance Slcloudy Urine pH 5.0 Ur Specific Dilworth 1.015 Urine Protein 2+ H Urine Glucose (UA) 1+ H Urine Ketones Negative Urine Blood Negative Urine Nitrite Negative Urine Bilirubin Negative Urine Urobilinogen Negative Ur Leukocyte Esterase Negative Urine WBC (Auto) 1 Urine RBC (Auto) None Ur Epithelial Cells Rare Urine Bacteria Rare Hyaline Casts 1 Random Vancomycin 05/31/18 05/31/18 05/31/18 06:55 08:33 10:10 WBC 13.7 H RBC 2.58 L Hgb 8.1 L Hct 24.6 L MCV 95.5 MCH 31.4 MCHC 32.9 RDW 13.0 Plt Count 172 D MPV 8.0 Absolute Neuts (auto) 13.3 Neutrophils % 97.0 H Neutrophils % (Manual) Band Neutrophils % Lymphocytes % 1.4 L D Lymphocytes % (Manual) Monocytes % 1.2 L Monocytes % (Manual) Eosinophils % 0.0 D Basophils % 0.4 D Nucleated RBC % 0 Hypochromia Platelet Estimate Platelet Comment Anisocytosis Microcytosis Macrocytosis PT with INR INR PTT (Actin FS) Anticoagulation Therapy Puncture Site Left radial ABG pH 7.34 L ABG pCO2 at Pt Temp 37.9 ABG pO2 at Pt Temp 121.0 H D ABG HCO3 19.9 L ABG O2 Sat (Measured) 98.8 ABG O2 Content 12.7 L ABG Base Excess -4.9 L Kieran Test Positive Carboxyhemoglobin Methemoglobin O2 Delivery Device Venti mask Oxygen Flow Rate 50% Vent Mode Vent Rate Mechanical Rate No PEEP 0.0 Pressure Support Vent Sodium Potassium Chloride Carbon Dioxide Anion Gap BUN Creatinine Creat Clearance w eGFR Random Glucose Lactic Acid Calcium Phosphorus Magnesium Total Bilirubin AST ALT Alkaline Phosphatase Creatine Kinase Troponin I B-Natriuretic Peptide Total Protein Albumin Urine Color Urine Appearance Urine pH Ur Specific [place] Urine Protein Urine Glucose (UA) Urine Ketones Urine Blood Urine Nitrite Urine Bilirubin Urine Urobilinogen Ur Leukocyte Esterase Urine WBC (Auto) Urine RBC (Auto) Ur Epithelial Cells Urine Bacteria Hyaline Casts Random Vancomycin 14.69 05/31/18 10:10 WBC RBC Hgb Hct MCV MCH MCHC RDW Plt Count MPV Absolute Neuts (auto) Neutrophils % Neutrophils % (Manual) Band Neutrophils % Lymphocytes % Lymphocytes % (Manual) Monocytes % Monocytes % (Manual) Eosinophils % Basophils % Nucleated RBC % Hypochromia Platelet Estimate Platelet Comment Anisocytosis Microcytosis Macrocytosis PT with INR INR PTT (Actin FS) Anticoagulation Therapy Puncture Site ABG pH ABG pCO2 at Pt Temp ABG pO2 at Pt Temp ABG HCO3 ABG O2 Sat (Measured) ABG O2 Content ABG Base Excess Kieran Test Carboxyhemoglobin Methemoglobin O2 Delivery Device Oxygen Flow Rate Vent Mode Vent Rate Mechanical Rate PEEP Pressure Support Vent Sodium 134 L Potassium 3.7 Chloride 101 Carbon Dioxide 22 Anion Gap 11 BUN 79 H Creatinine 2.4 H Creat Clearance w eGFR 20.02 Random Glucose 240 H Lactic Acid Calcium 8.5 Phosphorus 4.7 Magnesium 1.8 Total Bilirubin 0.1 L AST 30 ALT 16 Alkaline Phosphatase 78 D Creatine Kinase Troponin I B-Natriuretic Peptide Total Protein 6.4 Albumin 2.2 L Urine Color Urine Appearance Urine pH Ur Specific [place] Urine Protein Urine Glucose (UA) Urine Ketones Urine Blood Urine Nitrite Urine Bilirubin Urine Urobilinogen Ur Leukocyte Esterase Urine WBC (Auto) Urine RBC (Auto) Ur Epithelial Cells Urine Bacteria Hyaline Casts Random Vancomycin ASSESSMENT/PLAN: Sepsis due to UTI, R/O PNA Parkinsons Dementia AMS Anemia CKD Do not clinically suspect CHF ABX per ID BD TX PRN DNI O2 as needed Local wound care / avoid pressure on left heal Normal transfusion thresholds Glycemic control Aspiration precautions IVF Floor Follow final cultures Dr Fu Critical care time spent in reviewing chart, evaluating patient and formulating plan - 36 minutes.
--- NOTE | 2018-05-31 12:06 | EKG ---
Test Reason : Blood Pressure : / mmHG Vent. Rate : 068 BPM Atrial Rate : 068 BPM P-R Int : 256 ms QRS Dur : 104 ms QT Int : 458 ms P-R-T Axes : 095 -66 -22 degrees QTc Int : 487 ms POOR DATA QUALITY, INTERPRETATION MAY BE ADVERSELY AFFECTED SINUS RHYTHM WITH 1ST DEGREE A-V BLOCK WITH PREMATURE ATRIAL COMPLEXES LEFT AXIS DEVIATION INCOMPLETE RIGHT BUNDLE BRANCH BLOCK ANTERIOR INFARCT (CITED ON OR BEFORE 28-NOV-2017) ABNORMAL ECG WHEN COMPARED WITH ECG OF 28-NOV-2017 12:01, PREMATURE ATRIAL COMPLEXES ARE NOW PRESENT IA INTERVAL HAS INCREASED QUESTIONABLE CHANGE IN INITIAL FORCES OF SEPTAL LEADS ST NOW DEPRESSED IN INFERIOR LEADS Confirmed by FEDE PISANO, AMAPRO ([id number]) on 05/31/2018 12:06:02 PM Referred By: Confirmed By:AMPARO MISTRY MD
[2018-05-31] MEDS: PILOCARPINE 1% OPHTHALMIC SOLUTION 15 ML BOTTLE OU SCH ×4 (12:11→23:27)
--- NOTE | 2018-05-31 12:25 | PN ---
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, Physician Chief Complaint: 67 year old female with a past medical history of anemia, CKD4, IDDM, Parkinson' s disease, Dementia, HTN, HLD, CAD who presented to the ED from [facility] with hypoxia and hypotension. seen in ICU today patient in bed eyes closed off nasal oxygen sats in 97-98 BP is ok no pressors - Current Medication List Current Medications: Active Medications Albuterol/Ipratropium (Duoneb -) 1 amp NEB RTID [facility] Last Admin: 05/31/18 08:12 Dose: 1 amp Amino Acids (Prosource No Carb Liquid Pkt) 30 ml PO BID@0800,1730 [facility] Last Admin: 05/31/18 08:58 Dose: 30 ml Aspirin (Ecotrin -) 81 mg NR DAILY [facility] Last Admin: 05/31/18 09:01 Dose: 81 mg Bacitracin (Bacitracin -) 1 applic TP DAILY [facility] Last Admin: 05/31/18 12:10 Dose: 1 applic Brimonidine Tartrate (Alphagan P 0.1% -) 1 drop OU TID [facility] Last Admin: 05/31/18 06:19 Dose: 1 drop Calcium Carbonate/Cholecalciferol (Os-Isacc 500+D -) 1 tab GT DAILY [facility] Last Admin: 05/31/18 12:11 Dose: 1 tab Chlorhexidine Gluconate (Hibiclens For Decolonization -) 1 applic TP HS [facility] Citalopram Hydrobromide (Celexa -) 10 mg GT DAILY [facility] Last Admin: 05/31/18 12:10 Dose: Not Given Collagenase (Santyl -) 1 applic TP DAILY [facility]; Protocol Last Admin: 05/31/18 09:13 Dose: 1 applic Cyanocobalamin (Vitamin B12 -) 1,000 mcg GT DAILY [facility] Last Admin: 05/31/18 12:13 Dose: 1,000 mcg Docusate Sodium (Colace Liquid -) 300 mg GT DAILY [facility] Last Admin: 05/31/18 12:11 Dose: Not Given Dorzolamide HCl (Trusopt 2%) 1 drop OU TID [facility] Last Admin: 05/31/18 06:21 Dose: 1 drop Ferrous Sulfate (Feosol) 450 mg GT DAILY [facility] Last Admin: 05/31/18 09:01 Dose: 450 mg Heparin Sodium (Porcine) (Heparin -) 5,000 unit SQ BID [facility] Last Admin: 05/31/18 09:01 Dose: 5,000 unit Ertapenem 0.5 gm/ Sodium (Chloride) 50 mls @ 50 mls/hr IVPB DAILY [facility]; Protocol Last Admin: 05/31/18 09:13 Dose: 50 mls/hr Sodium Chloride (Normal Saline -) 1,000 mls @ 75 mls/hr IV ASDIR [facility] Insulin Aspart (Novolog Vial Sliding Scale -) 1 vial SQ HS [facility]; Protocol Latanoprost (Xalatan 0.005% Eye Drops -) 1 drop OU HS [facility] Mupirocin (Bactroban Ointment (For Decolonization) -) 1 applic NS BID [facility] Stop: 06/05/18 09:59 Last Admin: 05/31/18 09:02 Dose: 1 applic Pilocarpine HCl (Pilostat 1% -) 1 drop OU QID [facility] Last Admin: 05/31/18 12:11 Dose: 1 drop Polyethylene Glycol (Miralax (For Bowel Prep) -) 17 gm PO DAILY [facility] Last Admin: 05/31/18 12:11 Dose: Not Given Ranitidine HCl (Zantac Oral Solution -) 150 mg PO BID [facility] Last Admin: 05/31/18 09:01 Dose: 150 mg Timolol Maleate (Timoptic 0.25%) 1 drop OD DAILY [facility] Last Admin: 05/31/18 12:12 Dose: 1 drop - Objective Vital Signs: Vital Signs Temperature 97.7 F 05/31/18 10:00 Pulse Rate 70 05/31/18 10:00 Respiratory Rate 21 05/31/18 10:00 Blood Pressure 103/72 05/31/18 10:00 O2 Sat by Pulse Oximetry (%) 97 05/31/18 09:00 Constitutional: Yes: Calm, Thin Eyes: Yes: Other (left eye yellowish blue discoloration) Cardiovascular: Yes: Regular Rate and Rhythm, S1, S2 Respiratory: Yes: Diminished (at the bases) Gastrointestinal: Yes: Normal Bowel Sounds, Soft Edema: No Labs: CBC, BMP 05/31/18 10:10 05/31/18 10:10 INR, PTT INR 0.96 (0.82-1.09) 05/30/18 18:50 Problem List - Problems (1) Sepsis Assessment/Plan: source could be lung /urine contact isolation for ESBL- h/o uti ESBL on last admission on ertrapenem awaiting cultures wbc 13.5 no fever Code(s): A41.9 - SEPSIS, UNSPECIFIED ORGANISM (2) CKD (chronic kidney disease) Assessment/Plan: renal consult will monitor bun/cr better from before Code(s): N18.9 - CHRONIC KIDNEY DISEASE, UNSPECIFIED (3) Anemia Assessment/Plan: on iron check iron panel Code(s): D64.9 - ANEMIA, UNSPECIFIED Qualifiers: Anemia type: unspecified type Qualified Code(s): D64.9 - Anemia, unspecified (4) Glaucoma Assessment/Plan: eye drops Code(s): H40.9 - UNSPECIFIED GLAUCOMA
[2018-05-31 13:19] VITALS: BMI 17.7
--- NOTE | 2018-05-31 13:22 | ECHO ---
Name: STEPHANE PEGUERO Exam:Adult Echocardiogram Study Date: 05/31/2018 11:33 AM Age: 67 yrs Reason For Study: ELEVATED BNP Height: 61 in Weight: 120 lb BSA: 1.5 m2 BP: 103/72 mmHg MMode/2D Measurements & Calculations IVSd: 0.89 cm Ao root diam: 2.7 cm LVIDd: 3.6 cm LA dimension: 3.1 cm LVIDs: 2.0 cm LVPWd: 0.78 cm EDV(Teich): 55.9 ml LVOT diam: 2.0 cm ESV(Teich): 13.4 ml Doppler Measurements & Calculations MV E max wing: 106.0 cm/sec TV V2 max: 382.8 cm/sec MV A max wing: 109.6 cm/sec TV max P.6 mmHg MV E/A: 0.97 MV dec time: 0.28 sec TR max wing: 312.5 cm/sec Med Peak E' Wing: 9.8 cm/sec TR max P.6 mmHg Med E/e': 10.8 Lat Peak E' Wing: 10.4 cm/sec Lat E/e': 10.1 Left Ventricle Left ventricular systolic function is normal. Right Ventricle The right ventricle is grossly normal size. The right ventricular systolic function is grossly normal . Atria Normal left and right atrial size and function. Mitral Valve There is moderate mitral annular calcification. There is no mitral valve stenosis. There is mild mitr al regurgitation. Tricuspid Valve A tricuspid valve vegetation cannot be excluded. There is moderate tricuspid regurgitation. Right mitchell tricular systolic pressure is elevated at 50-60mmHg. Aortic Valve The aortic valve opens well. No hemodynamically significant valvular aortic stenosis. No aortic regur gitation is present. Pulmonic Valve The pulmonic valve is not well seen, but is grossly normal. There is no pulmonic valvular stenosis. T here is no pulmonic valvular regurgitation. Great Vessels The aortic root is normal size. Pericardium/Pleura There is no pericardial effusion. Interpretation Summary There is moderate mitral annular calcification. There is mild mitral regurgitation. A tricuspid valve vegetation cannot be excluded. There is moderate tricuspid regurgitation. Right ventricular systolic pressure is elevated at 50-60mmHg. There is no pericardial effusion. MD Madi Raya 05/31/2018 01:22 PM
[2018-05-31 13:26] LABS: ACANTHOCYTES 0; ANISOCYTOSIS 0; HELMET CELLS 0; HOWELL-JOLLY BODIES 0; MACROCYTOSIS 0; OVALOCYTE 0; PLATELET ESTIMATE NORMAL; ROULEAU 0; SICKELED CELLS 0; TARGET CELLS 0; TEAR DROP CELLS 0; TOXIC GRANULATION 0
--- NOTE | 2018-05-31 17:33 | PN ---
Physical Exam: SUBJECTIVE: Patient seen and examined in the ICU. Resting in bed, seems mildly agitated and in mild distress. Nonverbal and unable to follow commands. Making incomprehensible noises. OBJECTIVE: Vital Signs Period Temp Pulse Resp BP Sys/Rose Pulse Ox Last 24 Hr 97 F-98.4 F 65-88 14-28 65-122/40-75 71-97 GENERAL: The patient is awake, mildly agitated, cachectic HEAD: Normal with no signs of trauma. EYES: PERRL, sclera anicteric, conjunctiva clear. No ptosis. ENT: Ears normal, nares patent, oropharynx clear without exudates, dry mucus membranes. NECK: Trachea midline, full range of motion, supple. LUNGS: Breath sounds equal, clear to auscultation bilaterally with mild crackles at the bases, no wheezes, no accessory muscle use. HEART: Regular rate and rhythm, S1, S2 without murmur, rub or gallop. ABDOMEN: Soft, nontender, nondistended, normoactive bowel sounds, no guarding, no rebound, no hepatosplenomegaly, no masses. EXTREMITIES: 2+ pulses, warm, well-perfused, no edema. NEUROLOGICAL: Cranial nerves II through XII grossly intact. Unable to communicate or follow commands, gait not observed. SKIN: Warm, dry, poor turgor, Ulcer on left heel, wrapped in clean dry dressing. Laboratory Results - last 24 hr 05/30/18 05/30/18 05/30/18 09:07 09:07 18:50 WBC 9.2 RBC 2.77 L Hgb 8.8 L Hct 26.4 L MCV 95.3 MCH 31.8 MCHC 33.4 RDW 13.0 D Plt Count 245 MPV 8.0 Absolute Neuts (auto) 8.8 Neutrophils % 95.5 H Neutrophils % (Manual) 90.0 H Band Neutrophils % 6.0 Lymphocytes % 2.2 L D Lymphocytes % (Manual) 3.0 L Monocytes % 2.0 L Monocytes % (Manual) 1 L Eosinophils % 0.2 D Eosinophils % (Manual) Basophils % 0.1 Basophils % (Manual) Myelocytes % (Man) Promyelocytes % (Man) Blast Cells % (Manual) Nucleated RBC % 0 Metamyelocytes Hypochromia 3+ Toxic Granulation Dohle Bodies Platelet Estimate Adequate Platelet Comment No clumping noted Polychromasia Poikilocytosis Basophilic Stippling Anisocytosis 2+ Microcytosis 1+ Macrocytosis 1+ Spherocytes Sickle Cells Target Cells Tear Drop Cells Ovalocytes Stomatocytes Helmet Cells Bhatia-Cogswell Bodies Schurz Rings Antonino Cells Acanthocytes (Spur) Rouleaux Fragmented RBCs Schistocytes PT with INR INR PTT (Actin FS) Anticoagulation Therapy Puncture Site ABG pH ABG pCO2 at Pt Temp ABG pO2 at Pt Temp ABG HCO3 ABG O2 Sat (Measured) ABG O2 Content ABG Base Excess Kieran Test Carboxyhemoglobin Methemoglobin O2 Delivery Device Oxygen Flow Rate Vent Mode Vent Rate Mechanical Rate PEEP Pressure Support Vent Sodium Potassium Chloride Carbon Dioxide Anion Gap BUN Creatinine Creat Clearance w eGFR Random Glucose Lactic Acid Calcium Phosphorus Magnesium Total Bilirubin AST ALT Alkaline Phosphatase Creatine Kinase Troponin I 0.02 B-Natriuretic Peptide 4187.94 H Total Protein Albumin Urine Color Urine Appearance Urine pH Ur Specific Renick Urine Protein Urine Glucose (UA) Urine Ketones Urine Blood Urine Nitrite Urine Bilirubin Urine Urobilinogen Ur Leukocyte Esterase Urine WBC (Auto) Urine RBC (Auto) Ur Epithelial Cells Urine Bacteria Hyaline Casts Random Vancomycin 05/30/18 05/30/18 05/30/18 18:50 18:50 18:50 WBC RBC Hgb Hct MCV MCH MCHC RDW Plt Count MPV Absolute Neuts (auto) Neutrophils % Neutrophils % (Manual) Band Neutrophils % Lymphocytes % Lymphocytes % (Manual) Monocytes % Monocytes % (Manual) Eosinophils % Eosinophils % (Manual) Basophils % Basophils % (Manual) Myelocytes % (Man) Promyelocytes % (Man) Blast Cells % (Manual) Nucleated RBC % Metamyelocytes Hypochromia Toxic Granulation Dohle Bodies Platelet Estimate Platelet Comment Polychromasia Poikilocytosis Basophilic Stippling Anisocytosis Microcytosis Macrocytosis Spherocytes Sickle Cells Target Cells Tear Drop Cells Ovalocytes Stomatocytes Helmet Cells Bhatia-Cogswell Bodies Schurz Rings Antonino Cells Acanthocytes (Spur) Rouleaux Fragmented RBCs Schistocytes PT with INR 10.90 INR 0.96 PTT (Actin FS) 26.3 Anticoagulation Therapy Puncture Site ABG pH ABG pCO2 at Pt Temp ABG pO2 at Pt Temp ABG HCO3 ABG O2 Sat (Measured) ABG O2 Content ABG Base Excess Kieran Test Carboxyhemoglobin Methemoglobin O2 Delivery Device Oxygen Flow Rate Vent Mode Vent Rate Mechanical Rate PEEP Pressure Support Vent Sodium 133 L Potassium 4.0 Chloride 99 Carbon Dioxide 24 Anion Gap 10 BUN 87 H Creatinine 2.5 H Creat Clearance w eGFR 19.10 Random Glucose 275 H Lactic Acid 1.4 Calcium 8.8 Phosphorus Magnesium Total Bilirubin 0.2 AST 24 ALT 16 Alkaline Phosphatase 94 Creatine Kinase Troponin I B-Natriuretic Peptide Total Protein 6.4 Albumin 2.2 L Urine Color Urine Appearance Urine pH Ur Specific Renick Urine Protein Urine Glucose (UA) Urine Ketones Urine Blood Urine Nitrite Urine Bilirubin Urine Urobilinogen Ur Leukocyte Esterase Urine WBC (Auto) Urine RBC (Auto) Ur Epithelial Cells Urine Bacteria Hyaline Casts Random Vancomycin 05/30/18 05/30/18 05/31/18 19:20 21:00 00:35 WBC RBC Hgb Hct MCV MCH MCHC RDW Plt Count MPV Absolute Neuts (auto) Neutrophils % Neutrophils % (Manual) Band Neutrophils % Lymphocytes % Lymphocytes % (Manual) Monocytes % Monocytes % (Manual) Eosinophils % Eosinophils % (Manual) Basophils % Basophils % (Manual) Myelocytes % (Man) Promyelocytes % (Man) Blast Cells % (Manual) Nucleated RBC % Metamyelocytes Hypochromia Toxic Granulation Dohle Bodies Platelet Estimate Platelet Comment Polychromasia Poikilocytosis Basophilic Stippling Anisocytosis Microcytosis Macrocytosis Spherocytes Sickle Cells Target Cells Tear Drop Cells Ovalocytes Stomatocytes Helmet Cells Bhatia-Cogswell Bodies Schurz Rings [place] Cells Acanthocytes (Spur) Rouleaux Fragmented RBCs Schistocytes PT with INR INR PTT (Actin FS) Anticoagulation Therapy No Result Required. Puncture Site Left radial ABG pH 7.26 L ABG pCO2 at Pt Temp 45.7 H ABG pO2 at Pt Temp 67.1 L ABG HCO3 19.7 L ABG O2 Sat (Measured) 91.4 ABG O2 Content 11.0 L ABG Base Excess -6.6 L Kieran Test Positive Carboxyhemoglobin 1.6 Methemoglobin 1.7 H O2 Delivery Device Non-rebreather Oxygen Flow Rate 15 l Vent Mode No Result Required. Vent Rate No Result Required. Mechanical Rate No Result Required. PEEP Pressure Support Vent No Result Required. Sodium Potassium Chloride Carbon Dioxide Anion Gap BUN Creatinine Creat Clearance w eGFR Random Glucose Lactic Acid Calcium Phosphorus Magnesium Total Bilirubin AST ALT Alkaline Phosphatase Creatine Kinase 83 Troponin I 0.04 B-Natriuretic Peptide Total Protein Albumin Urine Color Ltyellow Urine Appearance Slcloudy Urine pH 5.0 Ur Specific Renick 1.015 Urine Protein 2+ H Urine Glucose (UA) 1+ H Urine Ketones Negative Urine Blood Negative Urine Nitrite Negative Urine Bilirubin Negative Urine Urobilinogen Negative Ur Leukocyte Esterase Negative Urine WBC (Auto) 1 Urine RBC (Auto) None Ur Epithelial Cells Rare Urine Bacteria Rare Hyaline Casts 1 Random Vancomycin 05/31/18 05/31/18 05/31/18 06:55 08:33 10:10 WBC 13.7 H RBC 2.58 L Hgb 8.1 L Hct 24.6 L MCV 95.5 MCH 31.4 MCHC 32.9 RDW 13.0 Plt Count 172 D MPV 8.0 Absolute Neuts (auto) 13.3 Neutrophils % 97.0 H Neutrophils % (Manual) 81.8 Band Neutrophils % 17.2 Lymphocytes % 1.4 L D Lymphocytes % (Manual) 1.0 L D Monocytes % 1.2 L Monocytes % (Manual) 0 L D Eosinophils % 0.0 D Eosinophils % (Manual) 0.0 Basophils % 0.4 D Basophils % (Manual) 0.0 Myelocytes % (Man) 0 Promyelocytes % (Man) 0 Blast Cells % (Manual) 0 Nucleated RBC % 0 Metamyelocytes 0 Hypochromia 0 Toxic Granulation 0 Dohle Bodies 0 Platelet Estimate Normal Platelet Comment Polychromasia 0 Poikilocytosis 0 Basophilic Stippling 0 Anisocytosis 0 Microcytosis 0 Macrocytosis 0 Spherocytes 0 Sickle Cells 0 Target Cells 0 Tear Drop Cells 0 Ovalocytes 0 Stomatocytes 0 Helmet Cells 0 Bhatia-Cogswell Bodies 0 Schurz Rings 0 [place] Cells 0 Acanthocytes (Spur) 0 Rouleaux 0 Fragmented RBCs 0 Schistocytes 0 PT with INR INR PTT (Actin FS) Anticoagulation Therapy Puncture Site Left radial ABG pH 7.34 L ABG pCO2 at Pt Temp 37.9 ABG pO2 at Pt Temp 121.0 H D ABG HCO3 19.9 L ABG O2 Sat (Measured) 98.8 ABG O2 Content 12.7 L ABG Base Excess -4.9 L Kieran Test Positive Carboxyhemoglobin Methemoglobin O2 Delivery Device Venti mask Oxygen Flow Rate 50% Vent Mode Vent Rate Mechanical Rate No PEEP 0.0 Pressure Support Vent Sodium Potassium Chloride Carbon Dioxide Anion Gap BUN Creatinine Creat Clearance w eGFR Random Glucose Lactic Acid Calcium Phosphorus Magnesium Total Bilirubin AST ALT Alkaline Phosphatase Creatine Kinase Troponin I B-Natriuretic Peptide Total Protein Albumin Urine Color Urine Appearance Urine pH Ur Specific Renick Urine Protein Urine Glucose (UA) Urine Ketones Urine Blood Urine Nitrite Urine Bilirubin Urine Urobilinogen Ur Leukocyte Esterase Urine WBC (Auto) Urine RBC (Auto) Ur Epithelial Cells Urine Bacteria Hyaline Casts Random Vancomycin 14.69 05/31/18 10:10 WBC RBC Hgb Hct MCV MCH MCHC RDW Plt Count MPV Absolute Neuts (auto) Neutrophils % Neutrophils % (Manual) Band Neutrophils % Lymphocytes % Lymphocytes % (Manual) Monocytes % Monocytes % (Manual) Eosinophils % Eosinophils % (Manual) Basophils % Basophils % (Manual) Myelocytes % (Man) Promyelocytes % (Man) Blast Cells % (Manual) Nucleated RBC % Metamyelocytes Hypochromia Toxic Granulation Dohle Bodies Platelet Estimate Platelet Comment Polychromasia Poikilocytosis Basophilic Stippling Anisocytosis Microcytosis Macrocytosis Spherocytes Sickle Cells Target Cells Tear Drop Cells Ovalocytes Stomatocytes Helmet Cells Bhatia-Cogswell Bodies Schurz Rings Antonino Cells Acanthocytes (Spur) Rouleaux Fragmented RBCs Schistocytes PT with INR INR PTT (Actin FS) Anticoagulation Therapy Puncture Site ABG pH ABG pCO2 at Pt Temp ABG pO2 at Pt Temp ABG HCO3 ABG O2 Sat (Measured) ABG O2 Content ABG Base Excess Kieran Test Carboxyhemoglobin Methemoglobin O2 Delivery Device Oxygen Flow Rate Vent Mode Vent Rate Mechanical Rate PEEP Pressure Support Vent Sodium 134 L Potassium 3.7 Chloride 101 Carbon Dioxide 22 Anion Gap 11 BUN 79 H Creatinine 2.4 H Creat Clearance w eGFR 20.02 Random Glucose 240 H Lactic Acid Calcium 8.5 Phosphorus 4.7 Magnesium 1.8 Total Bilirubin 0.1 L AST 30 ALT 16 Alkaline Phosphatase 78 D Creatine Kinase Troponin I B-Natriuretic Peptide Total Protein 6.4 Albumin 2.2 L Urine Color Urine Appearance Urine pH Ur Specific Renick Urine Protein Urine Glucose (UA) Urine Ketones Urine Blood Urine Nitrite Urine Bilirubin Urine Urobilinogen Ur Leukocyte Esterase Urine WBC (Auto) Urine RBC (Auto) Ur Epithelial Cells Urine Bacteria Hyaline Casts Random Vancomycin Active Medications Generic Name Dose Route Start Last Admin Trade Name Freq PRN Reason Stop Dose Admin Albuterol/Ipratropium 1 amp 05/31/18 08:00 05/31/18 14:42 Duoneb - NEB 1 amp RTID GRETCHEN Administration Amino Acids 30 ml 05/31/18 08:00 05/31/18 17:19 Prosource No Carb Liquid Pkt PO 30 ml BID@0800,1730 GRETCHEN Administration Aspirin 81 mg 05/31/18 10:00 05/31/18 09:01 Ecotrin - NR 81 mg DAILY GRETCHEN Administration Bacitracin 1 applic 05/31/18 10:00 05/31/18 12:10 Bacitracin - TP 1 applic DAILY GRETCHEN Administration Brimonidine Tartrate 1 drop 05/31/18 06:00 05/31/18 15:44 Alphagan P 0.1% - OU 1 drop TID GRETCHEN Administration Calcium Carbonate/Cholecalciferol 1 tab 05/31/18 10:00 05/31/18 12:11 Os-Isacc 500+D - GT 1 tab DAILY GRETCHEN Administration Chlorhexidine Gluconate 1 applic 05/31/18 22:00 Hibiclens For Decolonization - TP HS GRETCHEN Citalopram Hydrobromide 10 mg 05/31/18 10:00 05/31/18 12:10 Celexa - GT Not Given DAILY GRETCHEN Collagenase 1 applic 05/31/18 10:00 05/31/18 09:13 Santyl - TP 1 applic DAILY GRETCHEN Administration Protocol Cyanocobalamin 1,000 mcg 05/31/18 10:00 05/31/18 12:13 Vitamin B12 - GT 1,000 mcg DAILY GRETCHEN Administration Docusate Sodium 300 mg 05/31/18 10:00 05/31/18 12:11 Colace Liquid - GT Not Given DAILY GRETCHEN Dorzolamide HCl 1 drop 05/31/18 06:00 05/31/18 17:19 Trusopt 2% OU Not Given TID GRETCHEN Ferrous Sulfate 450 mg 05/31/18 10:00 05/31/18 09:01 Feosol GT 450 mg DAILY GRETCHEN Administration Heparin Sodium (Porcine) 5,000 unit 05/31/18 10:00 05/31/18 09:01 Heparin - SQ 5,000 unit BID RGETCHEN Administration Ertapenem 0.5 gm/ Sodium 50 mls @ 50 mls/hr 05/31/18 10:00 05/31/18 09:13 Chloride IVPB 50 mls/hr DAILY GRETCHEN Administration Protocol Sodium Chloride 1,000 mls @ 75 mls/hr 05/31/18 11:30 05/31/18 12:53 Normal Saline - IV 75 mls/hr ASDIR GRETCHEN Administration Insulin Aspart 1 vial 05/31/18 22:00 Novolog Vial Sliding Scale - SQ HS [facility] Protocol Latanoprost 1 drop 05/31/18 22:00 Xalatan 0.005% Eye Drops - OU HS GRETCHEN Mupirocin 1 applic 05/31/18 10:00 05/31/18 09:02 Bactroban Ointment (For Decolonization) - NS 06/05/18 09:59 1 applic BID GRETCHEN Administration Pilocarpine HCl 1 drop 05/31/18 10:00 05/31/18 17:20 Pilostat 1% - OU 1 drop QID GRETCHEN Administration Polyethylene Glycol 17 gm 05/31/18 10:00 05/31/18 12:11 Miralax (For Bowel Prep) - PO Not Given DAILY GRETCHEN Ranitidine HCl 150 mg 05/31/18 10:00 05/31/18 09:01 Zantac Oral Solution - PO 150 mg BID GRETCHEN Administration Timolol Maleate 1 drop 05/31/18 10:00 05/31/18 12:12 Timoptic 0.25% OD 1 drop DAILY GRETCHEN Administration ASSESSMENT/PLAN: 67 female admitted to ICU for acute hypoxic respiratory distress, consolidation suspicious for pneumonia, ESBL UTI in the past Neuro -Parkinson Dimentia unable to communicate or follow commands Cardio -Cardiology consult appreciated most likely not an acute exacerbation of HF -HTN/CAD ASA 81 mg NR Daily currently normotensive with borderline low pressures will monitor off HTN meds and add as necessary Respiratory -Congestion noted on CXR, most likely not Acute HF exacerbation as pt is clinically dry Will treat with Abx for pneumonia as per ID Pt saturating well on nasal canula GI -PEG tube in place -Colace 300 mg PEG -Miralax -Ranitidine 150 mg PO BID Renal -ESRD not on dialysis Monitor BMP for renal and electrolyte disturbances Vanc level required for redosing, as pt probably retains a high level Endocrine -IDDM BGM Insulin Sliding Scale for glycemic control ID -ID consult appreciated Sepsis with multiple possible sources, pneumonia, UTI, skin ulcers Vanc/Zosyn in the ED Vanc level 14.69 Will redose as per ID in AM Ertapenem 0.5gm Daily DVT Prophylaxis -Heparin 5000 Units SQ BID FEN -Fluids: NS @ 75 cc/hr -Electrolytes: Mg 1.8, K 3.7, repleted, follow BMP -Nutrition: Dysphagia chopped, will adjust as per dietary consult, prosource Disposition Transfer to Med/Surg Visit type - Emergency Visit Emergency Visit: Yes ED Registration Date: 05/30/18 Care time: The patient presented to the Emergency Department on the above date and was hospitalized for further evaluation of their emergent condition. - New Patient This patient is new to me today: Yes Date on this admission: 05/31/18 - Critical Care Critical Care patient: Yes Total Critical Care Time (in minutes): 35 Critical Care Statement: The care of this patient involved high complexity decision making to prevent further life threatening deterioration of the patient 's condition and/or to evaluate & treat vital organ system(s) failure or risk of failure.
--- NOTE | 2018-05-31 18:46 | CONSULT ---
Consult Consult Specialty:: Nephrology Reason for Consultation:: CKD - History of Present Illness Chief Complaint: sent in for altered mental status History of Present Illness: Pt is a 67 year old female with pmhx of ckd, anemia, DM, dementia and Parkinsons who was sent to the ER with altered mental status. Pt is unable to give history. She was found to be hypoxic in the NH and placed on oxygen. Her pulse ox did not improve. She was also found to be hypotensive. I was called to evaluate her for elevated creatinine. She has history of CKD. 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: Yes: Dementia, Parkinson's Cardio/Vascular: Yes: Hyperlipdemia Renal/: Yes: Renal Failure (chronic stage 4 ), Renal Inusuff Psych: Yes: Depression Endocrine: Yes: Diabetes Mellitus Additional Medical History: Glaucoma - Alcohol/Substance Use Hx Alcohol Use: No (unknown) - Smoking History Smoking history: Unknown if ever smoked Have you smoked in the past 12 months: No Home Medications - Allergies Allergies/Adverse Reactions: Allergies Allergy/AdvReac Type Severity Reaction Status Date / Time No Known Allergies Allergy Verified 11/28/17 11:40 - Home Medications Home Medications: Ambulatory Orders Aspirin [Aspirin EC] 81 mg PO DAILY 11/28/17 Brimonidine Tartrate [Alphagan P 0.1% -] 1 drop OU TID 11/28/17 Calcium Carbonate/Vitamin D3 [Calcium 500-Vit D3 200 Caplet] 1 each PO DAILY Citalopram Hydrobromide [Celexa -] 10 mg PO DAILY 11/28/17 Cyanocobalamin (Vitamin B-12) [Vitamin B-12] 1,000 mcg PO DAILY 11/28/17 Docusate Sodium 300 mg PO HS 11/28/17 Dorzolamide HCl [Trusopt 2% -] 1 drop OU TID 11/28/17 Latanoprost 0.005% Eye Drops [Xalatan 0.005% Eye Drops -] 1 drop OU HS 11/28/17 Pilocarpine 1% [Pilostat 1% -] 1 drop OU QID 11/28/17 Amlodipine Besylate [Norvasc -] 2.5 mg PO DAILY tablet 12/13/17 Insulin Sliding Scale [Novolog Vial Sliding Scale -] 1 vial SQ HS units Ferrous Sulfate 7.5 ml PO DAILY 05/30/18 Omeprazole Pediatric Solution [Omeprazole Pediatric Oral Solution] 20 mg GT HS 05/30/18 Polyethylene Glycol 3350 [Glycolax] 17 gm PO DAILY 05/30/18 Timolol 0.25% [Timoptic 0.25%] 5 ml OD DAILY 05/30/18 Family Disease History - Family Disease History Family History: Denies Review of Systems Unable to obtain ROS, reason: pt lethargic Physical Exam Vital Signs: Vital Signs Temperature 97.7 F 05/31/18 10:00 Pulse Rate 77 05/31/18 16:00 Respiratory Rate 14 05/31/18 16:00 Blood Pressure 99/56 05/31/18 16:00 O2 Sat by Pulse Oximetry (%) 97 05/31/18 09:00 Constitutional: Yes: Calm Cardiovascular: Yes: S1, S2 Respiratory: Yes: CTA Bilaterally, On Nasal O2 Gastrointestinal: Yes: Soft Renal/: Yes: [place] Present Musculoskeletal: Yes: Muscle Weakness Edema: No Neurological: Yes: Lethargy Labs: CBC, BMP 05/31/18 10:10 05/31/18 10:10 Laboratory Tests 12/12/17 12/13/17 05/30/18 06:55 06:15 18:50 WBC Hgb 8.8 L Creatinine 2.8 H 2.8 H Urine Protein Urine Blood 05/30/18 05/30/18 05/31/18 18:50 19:20 10:10 WBC 13.7 H Hgb 8.1 L Creatinine 2.5 H Urine Protein 2+ H Urine Blood Negative 05/31/18 10:10 WBC Hgb Creatinine 2.4 H Urine Protein Urine Blood Imaging - Results Chest X-ray: Report Reviewed Problem List - Problems (1) Altered mental status Code(s): R41.82 - ALTERED MENTAL STATUS, UNSPECIFIED Qualifiers: Altered mental status type: unspecified Qualified Code(s): R41.82 - Altered mental status, unspecified (2) CKD (chronic kidney disease) Code(s): N18.9 - CHRONIC KIDNEY DISEASE, UNSPECIFIED (3) Sepsis Code(s): A41.9 - SEPSIS, UNSPECIFIED ORGANISM Assessment/Plan Current Medications Generic Name Dose Route Start Last Admin Trade Name Freq PRN Reason Stop Dose Admin Albuterol/Ipratropium 1 amp 05/31/18 08:00 05/31/18 14:42 Duoneb - NEB 1 amp RTID GRETCHEN Administration Amino Acids 30 ml 05/31/18 08:00 05/31/18 17:19 Prosource No Carb Liquid Pkt PO 30 ml BID@0800,1730 GRETCHEN Administration Aspirin 81 mg 05/31/18 10:00 05/31/18 09:01 Ecotrin - NR 81 mg DAILY GRETCHEN Administration Bacitracin 1 applic 05/31/18 10:00 05/31/18 12:10 Bacitracin - TP 1 applic DAILY GRETCHEN Administration Brimonidine Tartrate 1 drop 05/31/18 06:00 05/31/18 15:44 Alphagan P 0.1% - OU 1 drop TID GRETCHEN Administration Calcium Carbonate/Cholecalciferol 1 tab 05/31/18 10:00 05/31/18 12:11 Os-Isacc 500+D - GT 1 tab DAILY GRETCHEN Administration Chlorhexidine Gluconate 1 applic 05/31/18 22:00 Hibiclens For Decolonization - TP HS GRETCHEN Citalopram Hydrobromide 10 mg 05/31/18 10:00 05/31/18 12:10 Celexa - GT Not Given DAILY GRETCHEN Collagenase 1 applic 05/31/18 10:00 05/31/18 09:13 Santyl - TP 1 applic DAILY GRETCHEN Administration Protocol Cyanocobalamin 1,000 mcg 05/31/18 10:00 05/31/18 12:13 Vitamin B12 - GT 1,000 mcg DAILY GRETCHEN Administration Docusate Sodium 300 mg 05/31/18 10:00 05/31/18 12:11 Colace Liquid - GT Not Given DAILY GRETCHEN Dorzolamide HCl 1 drop 05/31/18 06:00 05/31/18 17:19 Trusopt 2% OU Not Given TID GRETCHEN Ferrous Sulfate 450 mg 05/31/18 10:00 05/31/18 09:01 Feosol GT 450 mg DAILY GRETCHEN Administration Heparin Sodium (Porcine) 5,000 unit 05/31/18 10:00 05/31/18 09:01 Heparin - SQ 5,000 unit BID GRETCHEN Administration Ertapenem 0.5 gm/ Sodium 50 mls @ 50 mls/hr 05/31/18 10:00 05/31/18 09:13 Chloride IVPB 50 mls/hr DAILY GRETCHEN Administration Protocol Sodium Chloride 1,000 mls @ 75 mls/hr 05/31/18 11:30 05/31/18 12:53 Normal Saline - IV 75 mls/hr ASDIR GRETCHEN Administration Insulin Aspart 1 vial 05/31/18 22:00 Novolog Vial Sliding Scale - SQ HS GRETCHEN Protocol Latanoprost 1 drop 05/31/18 22:00 Xalatan 0.005% Eye Drops - OU HS GRETCHEN Mupirocin 1 applic 05/31/18 10:00 05/31/18 09:02 Bactroban Ointment (For Decolonization) - NS 06/05/18 09:59 1 applic BID GRETCHEN Administration Pilocarpine HCl 1 drop 05/31/18 10:00 05/31/18 17:20 Pilostat 1% - OU 1 drop QID GRETCHEN Administration Polyethylene Glycol 17 gm 05/31/18 10:00 05/31/18 12:11 Miralax (For Bowel Prep) - PO Not Given DAILY GRETCHEN Ranitidine HCl 150 mg 05/31/18 10:00 05/31/18 09:01 Zantac Oral Solution - PO 150 mg BID GRETCHEN Administration Timolol Maleate 1 drop 05/31/18 10:00 05/31/18 12:12 Timoptic 0.25% OD 1 drop DAILY GRETCHEN Administration Impression 1. CKD 2. anemia 3. change in mental status 4. sepsis 5. DM 6. Parkinson's disease 7. Depression Plan - renal function is not far from baseline - fluid trial and evaluate volume status - follow cultures - abx per ID - monitor lytes - repeat labs in am Dr Brooks
--- NOTE | 2018-05-31 18:54 | CON.CARD ---
Consult Consult Specialty:: Cardiology Referred by:: HATTIE Chilel Reason for Consultation:: CHF, pulmonary congestion - History of Present Illness Chief Complaint: Hypoxia and hypotension History of Present Illness: 67 year old woman, NHR, with a PMHx of HTN, IDDM, hyperlipidemia, CAD, CKD-4, anemia, Parkinson's disease, dementia admitted 05/30/2018 from [facility] with hypoxia and hypotension. She was found to have oxygen saturation in NH 79% and SBP into the 70s in NH. Pt was given 1L NS in ED and placed on NRB. CXR 05/30/2018 with congestion vs infiltrate. ECG showed sinus rhythm at a rate of 68 BPM with LAD and RBBB. Echocardiogram 05/31/2018 revealed normal LV and RV systolic function. Moderate TR and moderate pulmonary HTN. The patient has no acute respiratory distress at the time exam. - History Source History Provided By: Medical Record Limitations to Obtaining History: No Limitations - Past Medical History [employer]: Yes: Dementia, Parkinson's Cardio/Vascular: Yes: Hyperlipdemia Renal/: Yes: Renal Failure (chronic stage 4 ), Renal Inusuff Psych: Yes: Depression Endocrine: Yes: Diabetes Mellitus Additional Medical History: Glaucoma - Alcohol/Substance Use Hx Alcohol Use: No (unknown) - Smoking History Smoking history: Unknown if ever smoked Have you smoked in the past 12 months: No Home Medications - Allergies Allergies/Adverse Reactions: Allergies Allergy/AdvReac Type Severity Reaction Status Date / Time No Known Allergies Allergy Verified 11/28/17 11:40 - Home Medications Home Medications: Ambulatory Orders Aspirin [Aspirin EC] 81 mg PO DAILY 11/28/17 Brimonidine Tartrate [Alphagan P 0.1% -] 1 drop OU TID 11/28/17 Calcium Carbonate/Vitamin D3 [Calcium 500-Vit D3 200 Caplet] 1 each PO DAILY Citalopram Hydrobromide [Celexa -] 10 mg PO DAILY 11/28/17 Cyanocobalamin (Vitamin B-12) [Vitamin B-12] 1,000 mcg PO DAILY 11/28/17 Docusate Sodium 300 mg PO HS 11/28/17 Dorzolamide HCl [Trusopt 2% -] 1 drop OU TID 11/28/17 Latanoprost 0.005% Eye Drops [Xalatan 0.005% Eye Drops -] 1 drop OU HS 11/28/17 Pilocarpine 1% [Pilostat 1% -] 1 drop OU QID 11/28/17 Amlodipine Besylate [Norvasc -] 2.5 mg PO DAILY tablet 12/13/17 Insulin Sliding Scale [Novolog Vial Sliding Scale -] 1 vial SQ HS units Ferrous Sulfate 7.5 ml PO DAILY 05/30/18 Omeprazole Pediatric Solution [Omeprazole Pediatric Oral Solution] 20 mg GT HS 05/30/18 Polyethylene Glycol 3350 [Glycolax] 17 gm PO DAILY 05/30/18 Timolol 0.25% [Timoptic 0.25%] 5 ml OD DAILY 05/30/18 Review of Systems - Review of Systems Constitutional: reports: Lethargy, Weakness Eyes: reports: No Symptoms HENT: reports: No Symptoms Neck: reports: No Symptoms Cardiovascular: reports: No Symptoms Vital Signs: Vital Signs Temperature 97.7 F 05/31/18 10:00 Pulse Rate 77 05/31/18 16:00 Respiratory Rate 14 05/31/18 16:00 Blood Pressure 99/56 05/31/18 16:00 O2 Sat by Pulse Oximetry (%) 97 05/31/18 09:00 General: Well developed. Poorly nourished and cachetic. No acute distress. Head: Normocephalic. Atraumatic, Neck: Supple. No JVD. No bruits. Heart: Normal S1, S2: Regular rhythm and rate. No murmur. No gallop or rub. Lungs: Symmetrical poor air entry. Decreased BS. No crackle. No wheezing or rhonchi. Abdomen: Soft. Bowel sound positive. Non tender. No masses. Extremities: No edema. No clubbing or cyanosis. - Other Data Labs, Other Data: CBC, BMP 05/31/18 10:10 05/31/18 10:10 INR, PTT INR 0.96 (0.82-1.09) 05/30/18 18:50 Troponin, BNP 05/30/18 05/30/18 05/31/18 09:07 09:07 00:35 Troponin I 0.02 0.04 B-Natriuretic Peptide 4187.94 H Troponin, BNP 05/30/18 05/30/18 05/31/18 09:07 09:07 00:35 Troponin I 0.02 0.04 B-Natriuretic Peptide 4187.94 H Assessment/Plan 67 year old woman, NHR, with a PMHx of HTN, IDDM, hyperlipidemia, CAD, CKD-4, anemia, Parkinson's disease, dementia admitted 05/30/2018 from [facility] with hypoxia and hypotension. She was found to have oxygen saturation in NH 79% and SBP into the 70s in NH. Pt was given 1L NS in ED and placed on NRB. CXR 05/30/2018 with congestion vs infiltrate. ECG showed sinus rhythm at a rate of 68 BPM with LAD and RBBB. Echocardiogram 05/31/2018 revealed normal LV and RV systolic function. Moderate TR and moderate pulmonary HTN. Questionable CHF: The patient has no physical signs of fluid overload. Her BP is relatively low. She has normal LV and RV systolic function. The elevated BNP is likely due to her chronic pulmonary hypertension and advanced CKD. Hold amlodipine. No indication to use diuretics. Please call us for reconsult as needed.
[2018-05-31] MEDS: SODIUM CHLORIDE 1,000 ML IV SCH (20:02)
[2018-05-31] MEDS ORDERED: CHLORHEXIDINE GLUCONATE 4% CLEANSER FOR DECOLONIZATION TP SCH (22:00)
[2018-05-31] MEDS ORDERED: INSULIN SLIDING SCALE (NOVOLOG) 1 VIAL SQ SCH (22:00)
[2018-05-31] MEDS ORDERED: LATANOPROST 0.005% OPHTH SOLN 2.5ML BOTTLE OU SCH (22:00)
[2018-05-31] MEDS: HEPARIN NA (PORCINE) 5,000 UNITS/ML 1ML VIAL SQ SCH (23:26)
[2018-05-31] MEDS: MUPIROCIN 2% TOPICAL OINTMENT FOR DECOLONIZATION NS SCH (23:26)
[2018-05-31] MEDS: CHLORHEXIDINE GLUCONATE 4% CLEANSER FOR DECOLONIZATION TP SCH (23:26)
[2018-05-31] MEDS: LATANOPROST 0.005% OPHTH SOLN 2.5ML BOTTLE OU SCH (23:28)
[2018-05-31] MEDS: RANITIDINE HCL 150 MG/10 ML UNIT-DOSE GT SCH (23:28)
[2018-05-31] MEDS: INSULIN SLIDING SCALE (NOVOLOG) 1 VIAL SQ SCH (23:32)
[2018-06-01] MEDS: BRIMONIDINE TARTRATE 0.1% OPHTHALMIC 5 ML BOTTLE OU SCH ×3 (05:52→21:49)
[2018-06-01] MEDS: SODIUM CHLORIDE 1,000 ML IV SCH (05:52)
[2018-06-01] MEDS: DORZOLAMIDE 2% HCL OPHTHALMIC SOLUTION 10 ML BOTTLE OU SCH ×3 (05:52→21:50)
[2018-06-01 08:00] LABS: BASO % 0.2 % (0-2.0); EOS % 0.2 % (0-4.5); HEMATOCRIT 22.5 % (32.4-45.2); HEMOGLOBIN 7.5 GM/dL (10.7-15.3); MCH 31.8 pg (25.7-33.7); MCHC 33.4 g/dl (32.0-36.0); MEAN CELL VOLUME 95.3 fl (80-96); MONO % 2.1 % (3.8-10.2); NEUT % 95.5 % (42.8-82.8); PLATELET COUNT 152 K/MM3 (134-434); RBC 2.36 M/mm3 (3.60-5.2); RDW 12.7 % (11.6-15.6); WHITE BLOOD COUNT 11.1 K/mm3 (4.0-10.0)
[2018-06-01] MEDS: ALBUTEROL SO4 2.5/IPRATROPIUM 0.5 INH SOL 3 ML VIAL.NEB. NEB SCH ×3 (08:00→20:31)
[2018-06-01 09:17] LABS: ANION GAP 10 (8-16); BLOOD UREA NITROGEN 71 mg/dL (7-18); CALCIUM 8.3 mg/dL (8.5-10.1); CHLORIDE 109 mmol/L (98-107); CO2 21 mmol/L (21-32); CREATININE 2.1 mg/dL (0.55-1.02); GLUCOSE,RANDOM 129 mg/dL (74-106); MAGNESIUM 1.7 mg/dL (1.8-2.4); PHOSPHOROUS 3.5 mg/dL (2.5-4.9); POTASSIUM 3.3 mmol/L (3.5-5.1); SODIUM 140 mmol/L (136-145)
--- NOTE | 2018-06-01 10:39 | PN ---
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 (short form) - Note 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: RENAL Pt seen and examined sleeping comfortable, laying on her left side Last Vital Signs Temp Pulse Resp BP Pulse Ox 98.0 F 78 16 131/67 96 06/01/18 06:45 06/01/18 06:45 06/01/18 06:45 06/01/18 06:45 05/31/18 21:00 appears much older than stated age lungs decreased breath sounds cvs s1s2 rr distant abd soft ext no edema neuro asleep Current Medications Generic Name Dose Route Start Last Admin Trade Name Elo PRN Reason Stop Dose Admin Albuterol/Ipratropium 1 amp 05/31/18 20:00 06/01/18 08:00 Duoneb - NEB 1 amp RTID [facility] Administration Amino Acids 30 ml 06/01/18 08:00 Prosource No Carb Liquid Pkt GT BID@0800,1730 [facility] Aspirin 81 mg 06/01/18 10:00 Ecotrin - NR DAILY [facility] Bacitracin 1 applic 06/01/18 10:00 Bacitracin - TP DAILY [facility] Brimonidine Tartrate 1 drop 05/31/18 22:00 06/01/18 05:52 Alphagan P 0.1% - OU 1 drop TID [facility] Administration Calcium Carbonate/Cholecalciferol 1 tab 06/01/18 10:00 Os-Isacc 500+D - GT DAILY [facility] Chlorhexidine Gluconate 1 applic 05/31/18 22:00 05/31/18 23:26 Hibiclens For Decolonization - TP Not Given HS [facility] Citalopram Hydrobromide 10 mg 06/01/18 10:00 Celexa - GT DAILY [facility] Collagenase 1 applic 06/01/18 10:00 Santyl - TP DAILY [facility] Protocol Cyanocobalamin 1,000 mcg 06/01/18 10:00 Vitamin B12 - GT DAILY [facility] Docusate Sodium 300 mg 06/01/18 10:00 Colace Liquid - GT DAILY [facility] Dorzolamide HCl 1 drop 05/31/18 22:00 06/01/18 05:52 Trusopt 2% OU 1 drop TID [facility] Administration Ferrous Sulfate 450 mg 06/01/18 10:00 Feosol GT DAILY [facility] Heparin Sodium (Porcine) 5,000 unit 05/31/18 22:00 05/31/18 23:26 Heparin - SQ 5,000 unit BID [facility] Administration Ertapenem 0.5 gm/ Sodium 50 mls @ 100 mls/hr 06/01/18 10:00 Chloride IVPB DAILY [facility] Protocol Sodium Chloride 1,000 mls @ 75 mls/hr 05/31/18 19:48 06/01/18 05:52 Normal Saline - IV 75 mls/hr ASDIR [facility] Administration Insulin Aspart 1 vial 05/31/18 22:00 05/31/18 23:32 Novolog Vial Sliding Scale - SQ 6 unit HS [facility] Administration Protocol Latanoprost 1 drop 05/31/18 22:00 05/31/18 23:28 Xalatan 0.005% Eye Drops - OU 1 drop HS [facility] Administration Mupirocin 1 applic 05/31/18 22:00 05/31/18 23:26 Bactroban Ointment (For Decolonization) - NS 06/05/18 09:59 Not Given BID [facility] Pilocarpine HCl 1 drop 05/31/18 22:00 05/31/18 23:27 Pilostat 1% - OU 1 drop QID [facility] Administration Polyethylene Glycol 17 gm 06/01/18 10:00 Miralax (For Bowel Prep) - PO DAILY [facility] Ranitidine HCl 150 mg 05/31/18 22:00 05/31/18 23:28 Zantac Oral Solution - GT 150 mg BID [facility] Administration Timolol Maleate 1 drop 06/01/18 10:00 Timoptic 0.25% OD DAILY [facility] CBC, BMP 06/01/18 06:50 06/01/18 06:50 Impression 1. CKD- creat now lowest recorded since november 2. anemia 3. change in mental status 4. sepsis 5. DM 6. Parkinson's disease 7. Depression Plan - renal function is not far from baseline - would reduce fluids unless not eating - follow cultures- wound was pos - abx per ID - monitor lytes - repeat labs in am [facility]
[2018-06-01] MEDS: RANITIDINE HCL 150 MG/10 ML UNIT-DOSE GT SCH ×2 (10:50→21:50)
[2018-06-01] MEDS: FERROUS SO4 300 MG/5 ML ORAL SOLN UNIT DOSE CUPS GT SCH (10:50)
[2018-06-01] MEDS: AMINO ACIDS/PROTEIN HYDROLYS 30 ML LIQUID.PKT GT SCH ×2 (10:51→18:19)
[2018-06-01] MEDS: CYANOCOBALAMIN 1,000 MCG TABLET (FP) GT SCH (10:51)
[2018-06-01] MEDS: CALCIUM 500MG/VIT-D 200 UNITS COMBO TABLET (FP) GT SCH (10:51)
[2018-06-01] MEDS: ASPIRIN COATED 81 MG TABLET.EC NR SCH (10:51)
[2018-06-01] MEDS: CITALOPRAM HYDROBROMIDE 10 MG TABLET (FP) GT SCH (10:51)
[2018-06-01] MEDS: MUPIROCIN 2% TOPICAL OINTMENT FOR DECOLONIZATION NS SCH ×2 (10:52→21:40)
[2018-06-01] MEDS: HEPARIN NA (PORCINE) 5,000 UNITS/ML 1ML VIAL SQ SCH ×2 (10:52→21:50)
[2018-06-01] MEDS: BACITRACIN 15 GM TUBE TOPICAL OINTMENT TP SCH (10:52)
[2018-06-01] MEDS ORDERED: PT OWN MED DRAWER 7, Y5N ONE ×2 (10:54→14:25)
--- NOTE | 2018-06-01 10:56 | PN ---
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, Physician - Current Medication List Current Medications: Active Medications Albuterol/Ipratropium (Duoneb -) 1 amp NEB RTID [facility] Last Admin: 06/01/18 08:00 Dose: 1 amp Amino Acids (Prosource No Carb Liquid Pkt) 30 ml GT BID@0800,1730 [facility] Aspirin (Ecotrin -) 81 mg NR DAILY [facility] Bacitracin (Bacitracin -) 1 applic TP DAILY [facility] Brimonidine Tartrate (Alphagan P 0.1% -) 1 drop OU TID [facility] Last Admin: 06/01/18 05:52 Dose: 1 drop Calcium Carbonate/Cholecalciferol (Os-Isacc 500+D -) 1 tab GT DAILY [facility] Chlorhexidine Gluconate (Hibiclens For Decolonization -) 1 applic TP HS [facility] Last Admin: 05/31/18 23:26 Dose: Not Given Citalopram Hydrobromide (Celexa -) 10 mg GT DAILY [facility] Collagenase (Santyl -) 1 applic TP DAILY [facility]; Protocol Cyanocobalamin (Vitamin B12 -) 1,000 mcg GT DAILY [facility] Docusate Sodium (Colace Liquid -) 300 mg GT DAILY [facility] Dorzolamide HCl (Trusopt 2%) 1 drop OU TID [facility] Last Admin: 06/01/18 05:52 Dose: 1 drop Ferrous Sulfate (Feosol) 450 mg GT DAILY [facility] Last Admin: 06/01/18 10:50 Dose: 450 mg Heparin Sodium (Porcine) (Heparin -) 5,000 unit SQ BID [facility] Last Admin: 05/31/18 23:26 Dose: 5,000 unit Ertapenem 0.5 gm/ Sodium (Chloride) 50 mls @ 100 mls/hr IVPB DAILY [facility]; Protocol Sodium Chloride (Normal Saline -) 1,000 mls @ 75 mls/hr IV ASDIR [facility] Last Admin: 06/01/18 05:52 Dose: 75 mls/hr Insulin Aspart (Novolog Vial Sliding Scale -) 1 vial SQ HS [facility]; Protocol Last Admin: 05/31/18 23:32 Dose: 6 unit Latanoprost (Xalatan 0.005% Eye Drops -) 1 drop OU HS [facility] Last Admin: 05/31/18 23:28 Dose: 1 drop Mupirocin (Bactroban Ointment (For Decolonization) -) 1 applic NS BID [facility] Stop: 06/05/18 09:59 Last Admin: 05/31/18 23:26 Dose: Not Given Pilocarpine HCl (Pilostat 1% -) 1 drop OU QID [facility] Last Admin: 05/31/18 23:27 Dose: 1 drop Polyethylene Glycol (Miralax (For Bowel Prep) -) 17 gm PO DAILY [facility] Ranitidine HCl (Zantac Oral Solution -) 150 mg GT BID [facility] Last Admin: 06/01/18 10:50 Dose: 150 mg Timolol Maleate (Timoptic 0.25%) 1 drop OD DAILY [facility] - Objective Vital Signs: Vital Signs Temperature 98.0 F 06/01/18 06:45 Pulse Rate 78 06/01/18 06:45 Respiratory Rate 16 06/01/18 06:45 Blood Pressure 131/67 06/01/18 06:45 O2 Sat by Pulse Oximetry (%) 96 05/31/18 21:00 Labs: CBC, BMP 06/01/18 06:50 06/01/18 06:50 INR, PTT INR 0.96 (0.82-1.09) 05/30/18 18:50 Problem List - Problems (1) Sepsis Assessment/Plan: source could be lung /urine contact isolation for ESBL- h/o uti ESBL on last admission on ertrapenem awaiting cultures Microbiology 05/30/18 21:18 Gram Stain - Final Foot - Left Heel Wound Culture - Preliminary Lactose Fermenting Neg Bacilli Non Lactose Fermenting Gnb Pending Organism Pending Organism#2 Pending Organism#3 05/30/18 19:20 Urine Culture - Final Urine - Urine - Catheterized NO GROWTH OBTAINED 05/30/18 18:50 Blood Culture - Preliminary Blood - Peripheral Venous NO GROWTH OBTAINED AFTER 24 HOURS, INCUBATION TO CONTINUE FOR 4 DAYS. 05/30/18 18:50 Blood Culture - Preliminary Blood - Peripheral Venous NO GROWTH OBTAINED AFTER 24 HOURS, INCUBATION TO CONTINUE FOR 4 DAYS. wbc 13.5 no fever Code(s): A41.9 - SEPSIS, UNSPECIFIED ORGANISM (2) CKD (chronic kidney disease) Assessment/Plan: dc ivf renal consult will monitor bun/cr better from before [place] in place Code(s): N18.9 - CHRONIC KIDNEY DISEASE, UNSPECIFIED (3) Type 2 diabetes mellitus with diabetic chronic kidney disease Assessment/Plan: -bgm Code(s): E11.22 - TYPE 2 DIABETES MELLITUS W DIABETIC CHRONIC KIDNEY DISEASE (4) Anemia Assessment/Plan: Transfuse 1unit on iron follow labs Code(s): D64.9 - ANEMIA, UNSPECIFIED Qualifiers: Anemia type: unspecified type Qualified Code(s): D64.9 - Anemia, unspecified
[2018-06-01] MEDS: DOCUSATE NA 100 MG/10 ML UNIT-DOSE CUPS GT SCH ×2 (10:57→10:59)
[2018-06-01] MEDS: POLYETHYLENE GLYCOL 3350 255 GM BTL PO SCH (10:58)
[2018-06-01] MEDS: ERTAPENEM SODIUM 0.5 GM in SODIUM CHLORIDE 50 ML IVPB SCH (11:26)
[2018-06-01] MEDS: PILOCARPINE 1% OPHTHALMIC SOLUTION 15 ML BOTTLE OU SCH ×4 (11:26→21:49)
[2018-06-01] MEDS: COLLAGENASE CLOSTRIDIUM HIST. 30 GRAMS TUBE TP SCH (11:26)
[2018-06-01] MEDS: TIMOLOL 0.25% OPHTHALMIC SOL 5 ML BOTTLE OD SCH (11:26)
[2018-06-01 11:51] LABS: PLATELET ESTIMATE ADEQUATE
--- NOTE | 2018-06-01 13:06 | PN ---
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, Physician History of Present Illness: Not verbally responsive No acute distress Afebrile Breathing non-labored - Current Medication List Current Medications: Active Medications Albuterol/Ipratropium (Duoneb -) 1 amp NEB RTID [facility] Last Admin: 06/01/18 08:00 Dose: 1 amp Amino Acids (Prosource No Carb Liquid Pkt) 30 ml GT BID@0800,1730 [facility] Last Admin: 06/01/18 10:51 Dose: 30 ml Aspirin (Ecotrin -) 81 mg NR DAILY [facility] Last Admin: 06/01/18 10:51 Dose: 81 mg Bacitracin (Bacitracin -) 1 applic TP DAILY [facility] Last Admin: 06/01/18 10:52 Dose: 1 applic Brimonidine Tartrate (Alphagan P 0.1% -) 1 drop OU TID [facility] Last Admin: 06/01/18 05:52 Dose: 1 drop Calcium Carbonate/Cholecalciferol (Os-Isacc 500+D -) 1 tab GT DAILY [facility] Last Admin: 06/01/18 10:51 Dose: 1 tab Chlorhexidine Gluconate (Hibiclens For Decolonization -) 1 applic TP HS [facility] Last Admin: 05/31/18 23:26 Dose: Not Given Citalopram Hydrobromide (Celexa -) 10 mg GT DAILY [facility] Last Admin: 06/01/18 10:51 Dose: 10 mg Collagenase (Santyl -) 1 applic TP DAILY [facility]; Protocol Last Admin: 06/01/18 11:26 Dose: 1 applic Cyanocobalamin (Vitamin B12 -) 1,000 mcg GT DAILY [facility] Last Admin: 06/01/18 10:51 Dose: 1,000 mcg Docusate Sodium (Colace Liquid -) 300 mg GT DAILY [facility] Last Admin: 06/01/18 10:59 Dose: Not Given Dorzolamide HCl (Trusopt 2%) 1 drop OU TID [facility] Last Admin: 06/01/18 05:52 Dose: 1 drop Ferrous Sulfate (Feosol) 450 mg GT DAILY [facility] Last Admin: 06/01/18 10:50 Dose: 450 mg Heparin Sodium (Porcine) (Heparin -) 5,000 unit SQ BID [facility] Last Admin: 06/01/18 10:52 Dose: 5,000 unit Ertapenem 0.5 gm/ Sodium (Chloride) 50 mls @ 100 mls/hr IVPB DAILY [facility]; Protocol Last Admin: 06/01/18 11:26 Dose: 100 mls/hr Potassium Chloride 10 meq/ (Sodium Chloride) 105 mls @ 100 mls/hr IVPB Q60M [facility] Stop: 06/01/18 13:59 Insulin Aspart (Novolog Vial Sliding Scale -) 1 vial SQ HS [facility]; Protocol Last Admin: 05/31/18 23:32 Dose: 6 unit Latanoprost (Xalatan 0.005% Eye Drops -) 1 drop OU HS [facility] Last Admin: 05/31/18 23:28 Dose: 1 drop Mupirocin (Bactroban Ointment (For Decolonization) -) 1 applic NS BID [facility] Stop: 06/05/18 09:59 Last Admin: 06/01/18 10:52 Dose: Not Given Pilocarpine HCl (Pilostat 1% -) 1 drop OU QID [facility] Last Admin: 06/01/18 11:26 Dose: 1 drop Polyethylene Glycol (Miralax (For Bowel Prep) -) 17 gm PO DAILY [facility] Last Admin: 06/01/18 10:58 Dose: Not Given Ranitidine HCl (Zantac Oral Solution -) 150 mg GT BID [facility] Last Admin: 06/01/18 10:50 Dose: 150 mg Timolol Maleate (Timoptic 0.25%) 1 drop OD DAILY [facility] Last Admin: 06/01/18 11:26 Dose: 1 applic - Objective Vital Signs: Vital Signs Temperature 98.5 F 06/01/18 10:00 Pulse Rate 86 06/01/18 10:00 Respiratory Rate 16 06/01/18 10:00 Blood Pressure 106/52 06/01/18 10:00 O2 Sat by Pulse Oximetry (%) 96 05/31/18 21:00 Constitutional: Yes: No Distress Eyes: Yes: Conjunctiva Clear Cardiovascular: Yes: Regular Rate and Rhythm Respiratory: Yes: CTA Bilaterally Gastrointestinal: Yes: Normal Bowel Sounds, Soft. No: Tenderness Labs: CBC, BMP 06/01/18 06:50 06/01/18 06:50 INR, PTT INR 0.96 (0.82-1.09) 05/30/18 18:50 Assessment/Plan S/P respiratory failure CHF/ pneumonia CKD Hx ESBL Parkinsonism/ OBS Await c/s Continue ertapenem
--- NOTE | 2018-06-01 13:43 | PN ---
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 (short form) - Note 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: PULMONARY Pt nonverbal. No fevers recorded. Vital Signs Period Temp Pulse Resp BP Sys/Rose Pulse Ox Last 24 Hr 97.2 F-98.6 F 76-86 14-18 99-131/52-74 96-97 Gen: breathing nonlabored Heart: RRR Lung: decreased breath sounds at the bases Abd: soft, nontender Ext: no edema, contracted CBC, BMP 06/01/18 06:50 06/01/18 06:50 Active Medications Albuterol/Ipratropium (Duoneb -) 1 amp NEB RTID [facility] Last Admin: 06/01/18 08:00 Dose: 1 amp Amino Acids (Prosource No Carb Liquid Pkt) 30 ml GT BID@0800,1730 [facility] Last Admin: 06/01/18 10:51 Dose: 30 ml Aspirin (Ecotrin -) 81 mg NR DAILY [facility] Last Admin: 06/01/18 10:51 Dose: 81 mg Bacitracin (Bacitracin -) 1 applic TP DAILY [facility] Last Admin: 06/01/18 10:52 Dose: 1 applic Brimonidine Tartrate (Alphagan P 0.1% -) 1 drop OU TID [facility] Last Admin: 06/01/18 05:52 Dose: 1 drop Calcium Carbonate/Cholecalciferol (Os-Isacc 500+D -) 1 tab GT DAILY [facility] Last Admin: 06/01/18 10:51 Dose: 1 tab Chlorhexidine Gluconate (Hibiclens For Decolonization -) 1 applic TP HS [facility] Last Admin: 05/31/18 23:26 Dose: Not Given Citalopram Hydrobromide (Celexa -) 10 mg GT DAILY [facility] Last Admin: 06/01/18 10:51 Dose: 10 mg Collagenase (Santyl -) 1 applic TP DAILY [facility]; Protocol Last Admin: 06/01/18 11:26 Dose: 1 applic Cyanocobalamin (Vitamin B12 -) 1,000 mcg GT DAILY [facility] Last Admin: 06/01/18 10:51 Dose: 1,000 mcg Docusate Sodium (Colace Liquid -) 300 mg GT DAILY [facility] Last Admin: 06/01/18 10:59 Dose: Not Given Dorzolamide HCl (Trusopt 2%) 1 drop OU TID [facility] Last Admin: 06/01/18 05:52 Dose: 1 drop Ferrous Sulfate (Feosol) 450 mg GT DAILY [facility] Last Admin: 06/01/18 10:50 Dose: 450 mg Heparin Sodium (Porcine) (Heparin -) 5,000 unit SQ BID [facility] Last Admin: 06/01/18 10:52 Dose: 5,000 unit Ertapenem 0.5 gm/ Sodium (Chloride) 50 mls @ 100 mls/hr IVPB DAILY [facility]; Protocol Last Admin: 06/01/18 11:26 Dose: 100 mls/hr Potassium Chloride 10 meq/ (Sodium Chloride) 105 mls @ 100 mls/hr IVPB Q60M [facility] Stop: 06/01/18 13:59 Insulin Aspart (Novolog Vial Sliding Scale -) 1 vial SQ HS [facility]; Protocol Last Admin: 05/31/18 23:32 Dose: 6 unit Latanoprost (Xalatan 0.005% Eye Drops -) 1 drop OU HS [facility] Last Admin: 05/31/18 23:28 Dose: 1 drop Mupirocin (Bactroban Ointment (For Decolonization) -) 1 applic NS BID [facility] Stop: 06/05/18 09:59 Last Admin: 06/01/18 10:52 Dose: Not Given Pilocarpine HCl (Pilostat 1% -) 1 drop OU QID [facility] Last Admin: 06/01/18 11:26 Dose: 1 drop Polyethylene Glycol (Miralax (For Bowel Prep) -) 17 gm PO DAILY [facility] Last Admin: 06/01/18 10:58 Dose: Not Given Ranitidine HCl (Zantac Oral Solution -) 150 mg GT BID [facility] Last Admin: 06/01/18 10:50 Dose: 150 mg Timolol Maleate (Timoptic 0.25%) 1 drop OD DAILY [facility] Last Admin: 06/01/18 11:26 Dose: 1 applic A/P Pneumonia CAD HTN DM CKD Parkinsons Dementia - continue antibiotics - O2 to keep Spo2 >90% - inhaled bronchodilators - replete lytes - aspiration precautions - DVT prophylaxis
[2018-06-01] MEDS: POTASSIUM CHLORIDE 10 MEQ in SODIUM CHLORIDE 100 ML IVPB SCH ×2 (14:36→16:25)
[2018-06-01] MEDS: CHLORHEXIDINE GLUCONATE 4% CLEANSER FOR DECOLONIZATION TP SCH (21:42)
[2018-06-01] MEDS: LATANOPROST 0.005% OPHTH SOLN 2.5ML BOTTLE OU SCH (21:49)
[2018-06-01] MEDS: INSULIN SLIDING SCALE (NOVOLOG) 1 VIAL SQ SCH (21:50)
[2018-06-02] MEDS: BRIMONIDINE TARTRATE 0.1% OPHTHALMIC 5 ML BOTTLE OU SCH ×3 (06:03→21:20)
[2018-06-02] MEDS: DORZOLAMIDE 2% HCL OPHTHALMIC SOLUTION 10 ML BOTTLE OU SCH ×3 (06:03→21:20)
[2018-06-02 07:30] LABS: BASO % 0.2 % (0-2.0); EOS % 0.2 % (0-4.5); HEMOGLOBIN 8.8 GM/dL (10.7-15.3); LYMPH % 3.8 % (8-40); MCH 32.7 pg (25.7-33.7); MCHC 35.1 g/dl (32.0-36.0); MEAN CELL VOLUME 93.2 fl (80-96); MEAN PLT VOLUME 7.8 fl (7.5-11.1); MONO % 3.1 % (3.8-10.2); NEUT % 92.7 % (42.8-82.8); PLATELET COUNT 161 K/MM3 (134-434); RBC 2.68 M/mm3 (3.60-5.2); RDW 13.1 % (11.6-15.6); WHITE BLOOD COUNT 9.5 K/mm3 (4.0-10.0)
[2018-06-02 08:06] LABS: SERUM IRON SATURATION 16 % (15-55); TOTAL IRON BINDING CAPACITY 160 ug/dL (250-450); UIBC 134 ug/dL (118-369)
[2018-06-02 08:25] LABS: CALCIUM 8.6 mg/dL (8.5-10.1); CHLORIDE 110 mmol/L (98-107); SODIUM 141 mmol/L (136-145)
[2018-06-02] MEDS: ALBUTEROL SO4 2.5/IPRATROPIUM 0.5 INH SOL 3 ML VIAL.NEB. NEB SCH ×3 (08:29→20:24)
[2018-06-02 08:31] LABS: ALBUMIN 1.9 g/dl (3.4-5.0); ALK PHOS 78 U/L (45-117); ANION GAP 10 (8-16); BILIRUBIN,TOTAL 0.3 mg/dL (0.2-1.0); BLOOD UREA NITROGEN 61 mg/dL (7-18); CO2 21 mmol/L (21-32); GLUCOSE,RANDOM 213 mg/dL (74-106); SGOT/AST 16 U/L (15-37); SGPT/ALT 12 U/L (12-78); TOT PROT 5.7 g/dl (6.4-8.2)
[2018-06-02 08:32] LABS: PLATELET ESTIMATE ADEQUATE
[2018-06-02] MEDS: AMINO ACIDS/PROTEIN HYDROLYS 30 ML LIQUID.PKT GT SCH ×2 (08:44→17:52)
[2018-06-02] MEDS ORDERED: PT OWN MED DRAWER 7, Y5N ONE (09:43)
--- NOTE | 2018-06-02 10:01 | PN ---
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, Physician - Current Medication List Current Medications: Active Medications Albuterol/Ipratropium (Duoneb -) 1 amp NEB RTID [facility] Last Admin: 06/02/18 08:29 Dose: 1 amp Amino Acids (Prosource No Carb Liquid Pkt) 30 ml GT BID@0800,1730 [facility] Last Admin: 06/02/18 08:44 Dose: 30 ml Aspirin (Ecotrin -) 81 mg NR DAILY [facility] Last Admin: 06/01/18 10:51 Dose: 81 mg Bacitracin (Bacitracin -) 1 applic TP DAILY [facility] Last Admin: 06/01/18 10:52 Dose: 1 applic Brimonidine Tartrate (Alphagan P 0.1% -) 1 drop OU TID [facility] Last Admin: 06/02/18 06:03 Dose: 1 drop Calcium Carbonate/Cholecalciferol (Os-Isacc 500+D -) 1 tab GT DAILY [facility] Last Admin: 06/01/18 10:51 Dose: 1 tab Chlorhexidine Gluconate (Hibiclens For Decolonization -) 1 applic TP HS [facility] Last Admin: 06/01/18 21:42 Dose: Not Given Citalopram Hydrobromide (Celexa -) 10 mg GT DAILY [facility] Last Admin: 06/01/18 10:51 Dose: 10 mg Collagenase (Santyl -) 1 applic TP DAILY [facility]; Protocol Last Admin: 06/01/18 11:26 Dose: 1 applic Cyanocobalamin (Vitamin B12 -) 1,000 mcg GT DAILY [facility] Last Admin: 06/01/18 10:51 Dose: 1,000 mcg Docusate Sodium (Colace Liquid -) 300 mg GT DAILY [facility] Last Admin: 06/01/18 10:59 Dose: Not Given Dorzolamide HCl (Trusopt 2%) 1 drop OU TID [facility] Last Admin: 06/02/18 06:03 Dose: 1 drop Ferrous Sulfate (Feosol) 450 mg GT DAILY [facility] Last Admin: 06/01/18 10:50 Dose: 450 mg Heparin Sodium (Porcine) (Heparin -) 5,000 unit SQ BID [facility] Last Admin: 06/01/18 21:50 Dose: 5,000 unit Ertapenem 0.5 gm/ Sodium (Chloride) 50 mls @ 100 mls/hr IVPB DAILY [facility]; Protocol Last Admin: 07/21/18 11:26 Dose: 100 mls/hr Insulin Aspart (Novolog Vial Sliding Scale -) 1 vial SQ HS [facility]; Protocol Last Admin: 06/01/18 21:50 Dose: 4 unit Latanoprost (Xalatan 0.005% Eye Drops -) 1 drop OU HS [facility] Last Admin: 06/01/18 21:49 Dose: 1 drop Mupirocin (Bactroban Ointment (For Decolonization) -) 1 applic NS BID [facility] Stop: 06/05/18 09:59 Last Admin: 06/01/18 21:40 Dose: Not Given Pilocarpine HCl (Pilostat 1% -) 1 drop OU QID [facility] Last Admin: 06/01/18 21:49 Dose: 1 drop Polyethylene Glycol (Miralax (For Bowel Prep) -) 17 gm PO DAILY [facility] Last Admin: 06/01/18 10:58 Dose: Not Given Ranitidine HCl (Zantac Oral Solution -) 150 mg GT BID [facility] Last Admin: 06/01/18 21:50 Dose: 150 mg Timolol Maleate (Timoptic 0.25%) 1 drop OD DAILY [facility] Last Admin: 06/01/18 11:26 Dose: 1 applic - Objective Vital Signs: Vital Signs Temperature 98.3 F 06/02/18 06:00 Pulse Rate 81 06/02/18 06:00 Respiratory Rate 18 06/02/18 06:00 Blood Pressure 145/75 06/02/18 06:00 O2 Sat by Pulse Oximetry (%) 99 06/01/18 21:00 Cardiovascular: Yes: S1, S2 Respiratory: Yes: Regular, CTA Bilaterally Gastrointestinal: Yes: Normal Bowel Sounds, Soft Labs: CBC, BMP 06/02/18 06:10 06/02/18 06:10 INR, PTT INR 0.96 (0.82-1.09) 05/30/18 18:50 Problem List - Problems (1) Sepsis Assessment/Plan: source could be lung /urine contact isolation for ESBL- h/o uti ESBL on last admission on ertrapenem awaiting cultures Microbiology 05/30/18 21:18 Gram Stain - Final Foot - Left Heel Wound Culture - Preliminary Klebsiella Pneumoniae Proteus Mirabilis Staphylococcus Latex Coag Pos Group D Strep Or Entero Coccus 05/30/18 18:50 Blood Culture - Preliminary Blood - Peripheral Venous NO GROWTH OBTAINED AFTER 48 HOURS, INCUBATION TO CONTINUE FOR 3 DAYS. 07/19/18 18:50 Blood Culture - Preliminary Blood - Peripheral Venous NO GROWTH OBTAINED AFTER 48 HOURS, INCUBATION TO CONTINUE FOR 3 DAYS. 05/30/18 19:20 Urine Culture - Final Urine - Urine - Catheterized NO GROWTH OBTAINED no fever Code(s): A41.9 - SEPSIS, UNSPECIFIED ORGANISM (2) CKD (chronic kidney disease) Assessment/Plan: dc ivf renal consult will monitor bun/cr better from before [place] in place Code(s): N18.9 - CHRONIC KIDNEY DISEASE, UNSPECIFIED (3) Type 2 diabetes mellitus with diabetic chronic kidney disease Assessment/Plan: -bgm Code(s): E11.22 - TYPE 2 DIABETES MELLITUS W DIABETIC CHRONIC KIDNEY DISEASE (4) Anemia Code(s): D64.9 - ANEMIA, UNSPECIFIED Qualifiers: Anemia type: unspecified type Qualified Code(s): D64.9 - Anemia, unspecified
[2018-06-02] MEDS: BACITRACIN 15 GM TUBE TOPICAL OINTMENT TP SCH (10:07)
[2018-06-02] MEDS: ERTAPENEM SODIUM 0.5 GM in SODIUM CHLORIDE 50 ML IVPB SCH (10:07)
[2018-06-02] MEDS: ASPIRIN COATED 81 MG TABLET.EC NR SCH (10:09)
[2018-06-02] MEDS: DOCUSATE NA 100 MG/10 ML UNIT-DOSE CUPS GT SCH (10:09)
[2018-06-02] MEDS: RANITIDINE HCL 150 MG/10 ML UNIT-DOSE GT SCH ×2 (10:09→21:18)
[2018-06-02] MEDS: HEPARIN NA (PORCINE) 5,000 UNITS/ML 1ML VIAL SQ SCH ×2 (10:09→21:19)
[2018-06-02] MEDS: FERROUS SO4 300 MG/5 ML ORAL SOLN UNIT DOSE CUPS GT SCH (10:09)
[2018-06-02] MEDS: CITALOPRAM HYDROBROMIDE 10 MG TABLET (FP) GT SCH (10:09)
[2018-06-02] MEDS: CALCIUM 500MG/VIT-D 200 UNITS COMBO TABLET (FP) GT SCH (10:09)
[2018-06-02] MEDS: MUPIROCIN 2% TOPICAL OINTMENT FOR DECOLONIZATION NS SCH ×2 (10:10→21:19)
[2018-06-02] MEDS: PILOCARPINE 1% OPHTHALMIC SOLUTION 15 ML BOTTLE OU SCH ×4 (10:10→21:20)
[2018-06-02] MEDS: POLYETHYLENE GLYCOL 3350 255 GM BTL PO SCH (10:10)
[2018-06-02] MEDS: COLLAGENASE CLOSTRIDIUM HIST. 30 GRAMS TUBE TP SCH (10:10)
[2018-06-02] MEDS: CYANOCOBALAMIN 1,000 MCG TABLET (FP) GT SCH (10:10)
[2018-06-02] MEDS: TIMOLOL 0.25% OPHTHALMIC SOL 5 ML BOTTLE OD SCH (10:10)
--- NOTE | 2018-06-02 10:54 | PN ---
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 (short form) - Note 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: PULMONARY Pt more awake witih incomprehensible speech. No fevers recorded. Vital Signs Period Temp Pulse Resp BP Sys/Rose Pulse Ox Last 24 Hr 97.9 F-98.6 F 81-87 18-18 118-145/54-75 99 Gen: breathing nonlabored Heart: RRR Lung: decreased breath sounds at the bases Abd: soft, nontender Ext: no edema, contracted CBC, BMP 06/02/18 06:10 06/02/18 06:10 Active Medications Albuterol/Ipratropium (Duoneb -) 1 amp NEB RTID [facility] Last Admin: 06/02/18 08:29 Dose: 1 amp Amino Acids (Prosource No Carb Liquid Pkt) 30 ml GT BID@0800,1730 [facility] Last Admin: 06/02/18 08:44 Dose: 30 ml Aspirin (Ecotrin -) 81 mg NR DAILY [facility] Last Admin: 06/02/18 10:09 Dose: 81 mg Bacitracin (Bacitracin -) 1 applic TP DAILY [facility] Last Admin: 06/02/18 10:07 Dose: 1 applic Brimonidine Tartrate (Alphagan P 0.1% -) 1 drop OU TID [facility] Last Admin: 06/02/18 06:03 Dose: 1 drop Calcium Carbonate/Cholecalciferol (Os-Isacc 500+D -) 1 tab GT DAILY [facility] Last Admin: 06/02/18 10:09 Dose: 1 tab Chlorhexidine Gluconate (Hibiclens For Decolonization -) 1 applic TP HS [facility] Last Admin: 06/01/18 21:42 Dose: Not Given Citalopram Hydrobromide (Celexa -) 10 mg GT DAILY [facility] Last Admin: 06/02/18 10:09 Dose: 10 mg Collagenase (Santyl -) 1 applic TP DAILY [facility]; Protocol Last Admin: 06/02/18 10:10 Dose: 1 applic Cyanocobalamin (Vitamin B12 -) 1,000 mcg GT DAILY [facility] Last Admin: 06/02/18 10:10 Dose: 1,000 mcg Docusate Sodium (Colace Liquid -) 300 mg GT DAILY [facility] Last Admin: 06/02/18 10:09 Dose: 300 mg Dorzolamide HCl (Trusopt 2%) 1 drop OU TID [facility] Last Admin: 06/02/18 06:03 Dose: 1 drop Ferrous Sulfate (Feosol) 450 mg GT DAILY [facility] Last Admin: 06/02/18 10:09 Dose: 450 mg Heparin Sodium (Porcine) (Heparin -) 5,000 unit SQ BID [facility] Last Admin: 06/02/18 10:09 Dose: 5,000 unit Ertapenem 0.5 gm/ Sodium (Chloride) 50 mls @ 100 mls/hr IVPB DAILY [facility]; Protocol Last Admin: 06/02/18 10:07 Dose: 100 mls/hr Insulin Aspart (Novolog Vial Sliding Scale -) 1 vial SQ HS [facility]; Protocol Last Admin: 06/01/18 21:50 Dose: 4 unit Latanoprost (Xalatan 0.005% Eye Drops -) 1 drop OU HS [facility] Last Admin: 06/01/18 21:49 Dose: 1 drop Mupirocin (Bactroban Ointment (For Decolonization) -) 1 applic NS BID [facility] Stop: 06/05/18 09:59 Last Admin: 06/02/18 10:10 Dose: Not Given Pilocarpine HCl (Pilostat 1% -) 1 drop OU QID [facility] Last Admin: 06/02/18 10:10 Dose: 1 drop Polyethylene Glycol (Miralax (For Bowel Prep) -) 17 gm PO DAILY [facility] Last Admin: 06/02/18 10:10 Dose: Not Given Ranitidine HCl (Zantac Oral Solution -) 150 mg GT BID [facility] Last Admin: 06/02/18 10:09 Dose: 150 mg Timolol Maleate (Timoptic 0.25%) 1 drop OD DAILY [facility] Last Admin: 06/02/18 10:10 Dose: 1 applic A/P Pneumonia CAD HTN DM CKD Parkinsons Dementia - continue antibiotics - O2 to keep Spo2 >90% - inhaled bronchodilators - replete lytes - aspiration precautions - DVT prophylaxis
[2018-06-02] MEDS: POTASSIUM CHLORIDE ORAL LIQUID 20 MEQ/15 ML GT SCH ×2 (12:22→15:44)
--- NOTE | 2018-06-02 13:40 | PN ---
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 (short form) - Note 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: RENAL Pt seen and examined shouting comfortable, laying on her left side Last Vital Signs Temp Pulse Resp BP Pulse Ox 98.4 F 100 H 18 131/63 99 06/02/18 13:30 06/02/18 13:30 06/02/18 13:30 06/02/18 13:30 06/01/18 21:00 appears much older than stated age lungs decreased breath sounds cvs s1s2 rr distant abd soft ext no edema neuro yelling has greenish stool CBC, BMP 06/02/18 06:10 06/02/18 06:10 Current Medications Generic Name Dose Route Start Last Admin Trade Name Elo PRN Reason Stop Dose Admin Albuterol/Ipratropium 1 amp 05/31/18 20:00 06/02/18 08:29 Duoneb - NEB 1 amp RTID [facility] Administration Amino Acids 30 ml 06/01/18 08:00 06/02/18 08:44 Prosource No Carb Liquid Pkt GT 30 ml BID@0800,1730 [facility] Administration Aspirin 81 mg 06/01/18 10:00 06/02/18 10:09 Ecotrin - NR 81 mg DAILY [facility] Administration Bacitracin 1 applic 06/01/18 10:00 06/02/18 10:07 Bacitracin - TP 1 applic DAILY [facility] Administration Brimonidine Tartrate 1 drop 05/31/18 22:00 06/02/18 06:03 Alphagan P 0.1% - OU 1 drop TID [facility] Administration Calcium Carbonate/Cholecalciferol 1 tab 06/01/18 10:00 06/02/18 10:09 Os-Isacc 500+D - GT 1 tab DAILY [facility] Administration Chlorhexidine Gluconate 1 applic 05/31/18 22:00 06/01/18 21:42 Hibiclens For Decolonization - TP Not Given HS [facility] Citalopram Hydrobromide 10 mg 06/01/18 10:00 06/02/18 10:09 Celexa - GT 10 mg DAILY [facility] Administration Collagenase 1 applic 06/01/18 10:00 06/02/18 10:10 Santyl - TP 1 applic DAILY [facility] Administration Protocol Cyanocobalamin 1,000 mcg 06/01/18 10:00 06/02/18 10:10 Vitamin B12 - GT 1,000 mcg DAILY [facility] Administration Docusate Sodium 300 mg 06/01/18 10:00 06/02/18 10:09 Colace Liquid - GT 300 mg DAILY [facility] Administration Dorzolamide HCl 1 drop 05/31/18 22:00 06/02/18 06:03 Trusopt 2% OU 1 drop TID [facility] Administration Ferrous Sulfate 450 mg 06/01/18 10:00 06/02/18 10:09 Feosol GT 450 mg DAILY [facility] Administration Heparin Sodium (Porcine) 5,000 unit 05/31/18 22:00 06/02/18 10:09 Heparin - SQ 5,000 unit BID [facility] Administration Ertapenem 0.5 gm/ Sodium 50 mls @ 100 mls/hr 06/01/18 10:00 06/02/18 10:07 Chloride IVPB 100 mls/hr DAILY [facility] Administration Protocol Insulin Aspart 1 vial 05/31/18 22:00 06/01/18 21:50 Novolog Vial Sliding Scale - SQ 4 unit HS [facility] Administration Protocol Latanoprost 1 drop 05/31/18 22:00 06/01/18 21:49 Xalatan 0.005% Eye Drops - OU 1 drop HS [facility] Administration Mupirocin 1 applic 05/31/18 22:00 06/02/18 10:10 Bactroban Ointment (For Decolonization) - NS 06/05/18 09:59 Not Given BID [facility] Pilocarpine HCl 1 drop 05/31/18 22:00 06/02/18 10:10 Pilostat 1% - OU 1 drop QID [facility] Administration Polyethylene Glycol 17 gm 06/01/18 10:00 06/02/18 10:10 Miralax (For Bowel Prep) - PO Not Given DAILY [facility] Potassium Chloride 40 meq 06/02/18 11:00 06/02/18 12:22 Potassium Chloride Oral Liquid GT 06/02/18 15:01 40 meq Q4H [facility] Administration Ranitidine HCl 150 mg 05/31/18 22:00 06/02/18 10:09 Zantac Oral Solution - GT 150 mg BID [facility] Administration Timolol Maleate 1 drop 06/01/18 10:00 06/02/18 10:10 Timoptic 0.25% OD 1 applic DAILY [facility] Administration Impression 1. CKD- creat now lowest recorded since november 2. anemia 3. change in mental status 4. sepsis 5. DM 6. Parkinson's disease 7. Depression Plan - renal function is not far from baseline - follow cultures- wound was pos - abx per ID - monitor lytes - repeat labs in am [facility]
[2018-06-02] MEDS: CHLORHEXIDINE GLUCONATE 4% CLEANSER FOR DECOLONIZATION TP SCH (21:19)
[2018-06-02] MEDS: INSULIN SLIDING SCALE (NOVOLOG) 1 VIAL SQ SCH ×2 (21:19→21:46)
[2018-06-02] MEDS: LATANOPROST 0.005% OPHTH SOLN 2.5ML BOTTLE OU SCH (21:21)
[2018-06-02] MEDS ORDERED: ACETAMINOPHEN 325 MG TABLET (FP) PO ONE (21:45)
[2018-06-03] MEDS ORDERED: ACETAMINOPHEN 650 MG/20.3 ML ORAL SOLUTION (CUPS) PEG ONE (01:52)
[2018-06-03 02:36] LABS: BASO % 0.2 % (0-2.0); EOS % 0.7 % (0-4.5); HEMOGLOBIN 9.5 GM/dL (10.7-15.3); LYMPH % 6.2 % (8-40); MCH 31.9 pg (25.7-33.7); MCHC 33.9 g/dl (32.0-36.0); MEAN CELL VOLUME 94.2 fl (80-96); MEAN PLT VOLUME 7.9 fl (7.5-11.1); MONO % 4.7 % (3.8-10.2); NEUT % 88.2 % (42.8-82.8); PLATELET COUNT 180 K/MM3 (134-434); RBC 2.98 M/mm3 (3.60-5.2); RDW 13.5 % (11.6-15.6); WHITE BLOOD COUNT 6.4 K/mm3 (4.0-10.0)
[2018-06-03] MEDS ORDERED: SODIUM CHLORIDE 1,000 ML IV SCH (03:45)
[2018-06-03] MEDS: DORZOLAMIDE 2% HCL OPHTHALMIC SOLUTION 10 ML BOTTLE OU SCH ×3 (05:45→22:28)
[2018-06-03] MEDS: BRIMONIDINE TARTRATE 0.1% OPHTHALMIC 5 ML BOTTLE OU SCH ×3 (05:45→22:29)
[2018-06-03] MEDS: ALBUTEROL SO4 2.5/IPRATROPIUM 0.5 INH SOL 3 ML VIAL.NEB. NEB SCH ×3 (07:25→20:15)
[2018-06-03 07:28] LABS: BASO % 0.2 % (0-2.0); EOS % 1.9 % (0-4.5); HEMOGLOBIN 8.5 GM/dL (10.7-15.3); LYMPH % 5.9 % (8-40); MCH 32.2 pg (25.7-33.7); MCHC 34.2 g/dl (32.0-36.0); MEAN CELL VOLUME 94.1 fl (80-96); MEAN PLT VOLUME 7.8 fl (7.5-11.1); MONO % 4.9 % (3.8-10.2); NEUT % 87.1 % (42.8-82.8); PLATELET COUNT 170 K/MM3 (134-434); RBC 2.65 M/mm3 (3.60-5.2); RDW 13.3 % (11.6-15.6); WHITE BLOOD COUNT 6.8 K/mm3 (4.0-10.0)
[2018-06-03 07:53] LABS: ANION GAP 8 (8-16); BLOOD UREA NITROGEN 54 mg/dL (7-18); CALCIUM 9.2 mg/dL (8.5-10.1); CHLORIDE 116 mmol/L (98-107); CO2 22 mmol/L (21-32); CREATININE 2.1 mg/dL (0.55-1.02); GLUCOSE,RANDOM 169 mg/dL (74-106); POTASSIUM 4.2 mmol/L (3.5-5.1); SGOT/AST 14 U/L (15-37); SGPT/ALT 13 U/L (12-78); SODIUM 146 mmol/L (136-145)
[2018-06-03 07:55] LABS: ALK PHOS 89 U/L (45-117); BILIRUBIN,TOTAL 0.2 mg/dL (0.2-1.0)
[2018-06-03] MEDS: ERTAPENEM SODIUM 0.5 GM in SODIUM CHLORIDE 50 ML IVPB SCH (10:33)
[2018-06-03] MEDS: CYANOCOBALAMIN 1,000 MCG TABLET (FP) GT SCH (10:34)
[2018-06-03] MEDS: AMINO ACIDS/PROTEIN HYDROLYS 30 ML LIQUID.PKT GT SCH ×2 (10:34→18:42)
[2018-06-03] MEDS: HEPARIN NA (PORCINE) 5,000 UNITS/ML 1ML VIAL SQ SCH ×2 (10:34→21:49)
[2018-06-03] MEDS: ASPIRIN COATED 81 MG TABLET.EC NR SCH (10:35)
[2018-06-03] MEDS: RANITIDINE HCL 150 MG/10 ML UNIT-DOSE GT SCH ×2 (10:35→21:46)
[2018-06-03] MEDS: CALCIUM 500MG/VIT-D 200 UNITS COMBO TABLET (FP) GT SCH (10:35)
[2018-06-03] MEDS: COLLAGENASE CLOSTRIDIUM HIST. 30 GRAMS TUBE TP SCH (10:35)
[2018-06-03] MEDS: CITALOPRAM HYDROBROMIDE 10 MG TABLET (FP) GT SCH (10:35)
[2018-06-03] MEDS: POLYETHYLENE GLYCOL 3350 255 GM BTL PO SCH (10:36)
[2018-06-03] MEDS: DOCUSATE NA 100 MG/10 ML UNIT-DOSE CUPS GT SCH (10:37)
[2018-06-03] MEDS: TIMOLOL 0.25% OPHTHALMIC SOL 5 ML BOTTLE OD SCH (10:40)
[2018-06-03] MEDS: PILOCARPINE 1% OPHTHALMIC SOLUTION 15 ML BOTTLE OU SCH ×4 (10:40→22:31)
[2018-06-03] MEDS: MUPIROCIN 2% TOPICAL OINTMENT FOR DECOLONIZATION NS SCH ×2 (10:41→21:44)
[2018-06-03] MEDS: BACITRACIN 15 GM TUBE TOPICAL OINTMENT TP SCH (10:41)
--- NOTE | 2018-06-03 12:13 | PN ---
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, Physician Chief Complaint: seen today on med floor contact isolation temp 100.4 - Current Medication List Current Medications: Active Medications Albuterol/Ipratropium (Duoneb -) 1 amp NEB RTID [facility] Last Admin: 06/03/18 07:25 Dose: 1 amp Amino Acids (Prosource No Carb Liquid Pkt) 30 ml GT BID@0800,1730 [facility] Last Admin: 06/03/18 10:34 Dose: 30 ml Aspirin (Ecotrin -) 81 mg NR DAILY [facility] Last Admin: 06/03/18 10:35 Dose: 81 mg Bacitracin (Bacitracin -) 1 applic TP DAILY [facility] Last Admin: 06/03/18 10:41 Dose: 1 applic Brimonidine Tartrate (Alphagan P 0.1% -) 1 drop OU TID [facility] Last Admin: 06/03/18 05:45 Dose: 1 drop Calcium Carbonate/Cholecalciferol (Os-Isacc 500+D -) 1 tab GT DAILY [facility] Last Admin: 06/03/18 10:35 Dose: 1 tab Chlorhexidine Gluconate (Hibiclens For Decolonization -) 1 applic TP HS [facility] Last Admin: 06/02/18 21:19 Dose: Not Given Citalopram Hydrobromide (Celexa -) 10 mg GT DAILY [facility] Last Admin: 06/03/18 10:35 Dose: 10 mg Collagenase (Santyl -) 1 applic TP DAILY [facility]; Protocol Last Admin: 06/03/18 10:35 Dose: 1 applic Cyanocobalamin (Vitamin B12 -) 1,000 mcg GT DAILY [facility] Last Admin: 06/03/18 10:34 Dose: 1,000 mcg Docusate Sodium (Colace Liquid -) 300 mg GT DAILY [facility] Last Admin: 06/03/18 10:37 Dose: Not Given Dorzolamide HCl (Trusopt 2%) 1 drop OU TID [facility] Last Admin: 06/03/18 05:45 Dose: 1 drop Ferrous Sulfate (Feosol) 450 mg GT DAILY [facility] Last Admin: 06/02/18 10:09 Dose: 450 mg Heparin Sodium (Porcine) (Heparin -) 5,000 unit SQ BID [facility] Last Admin: 06/03/18 10:34 Dose: 5,000 unit Ertapenem 0.5 gm/ Sodium (Chloride) 50 mls @ 100 mls/hr IVPB DAILY [facility]; Protocol Last Admin: 06/03/18 10:33 Dose: 100 mls/hr Sodium Chloride (Normal Saline -) 1,000 mls @ 50 mls/hr IV ASDIR [facility] Stop: 06/04/18 03:37 Last Admin: 06/03/18 03:45 Dose: 50 mls/hr Insulin Aspart (Novolog Vial Sliding Scale -) 1 vial SQ HS [facility]; Protocol Last Admin: 06/02/18 21:46 Dose: 4 unit Latanoprost (Xalatan 0.005% Eye Drops -) 1 drop OU HS [facility] Last Admin: 06/02/18 21:21 Dose: 1 drop Mupirocin (Bactroban Ointment (For Decolonization) -) 1 applic NS BID [facility] Stop: 06/05/18 09:59 Last Admin: 06/03/18 10:41 Dose: Not Given Pilocarpine HCl (Pilostat 1% -) 1 drop OU QID [facility] Last Admin: 06/03/18 10:40 Dose: 1 drop Polyethylene Glycol (Miralax (For Bowel Prep) -) 17 gm PO DAILY [facility] Last Admin: 06/03/18 10:36 Dose: Not Given Ranitidine HCl (Zantac Oral Solution -) 150 mg GT BID [facility] Last Admin: 06/03/18 10:35 Dose: 150 mg Timolol Maleate (Timoptic 0.25%) 1 drop OD DAILY [facility] Last Admin: 06/03/18 10:40 Dose: 1 applic - Objective Vital Signs: Vital Signs Temperature 98.2 F 06/03/18 06:00 Pulse Rate 68 06/03/18 06:00 Respiratory Rate 20 06/03/18 06:00 Blood Pressure 140/62 06/03/18 06:00 O2 Sat by Pulse Oximetry (%) 99 06/02/18 21:00 Constitutional: Yes: Calm, Thin Cardiovascular: Yes: Regular Rate and Rhythm, S1, S2 Respiratory: Yes: CTA Bilaterally, Diminished (at bases) Gastrointestinal: Yes: Normal Bowel Sounds, Soft, Other (g tube) Genitourinary: Yes: [place] Present Edema: No Neurological: Yes: Other (awake making incomprehensible sounds hands flexed) Labs: CBC, BMP 06/03/18 06:00 06/03/18 06:00 INR, PTT INR 0.96 (0.82-1.09) 07/19/18 18:50 Problem List - Problems (1) Sepsis Assessment/Plan: source could be lung /urine contact isolation for ESBL- h/o uti ESBL on last admission on ertrapenem awaiting cultures wbc 13.5 no fever Code(s): A41.9 - SEPSIS, UNSPECIFIED ORGANISM (2) CKD (chronic kidney disease) Assessment/Plan: renal consult will monitor bun/cr better from before Code(s): N18.9 - CHRONIC KIDNEY DISEASE, UNSPECIFIED (3) Anemia Assessment/Plan: on iron check iron panel- noted on ferrous sulfate Code(s): D64.9 - ANEMIA, UNSPECIFIED Qualifiers: Anemia type: unspecified type Qualified Code(s): D64.9 - Anemia, unspecified (4) Glaucoma Assessment/Plan: eye drops Code(s): H40.9 - UNSPECIFIED GLAUCOMA (5) ESBL (extended spectrum beta-lactamase) producing bacteria infection Assessment/Plan: Microbiology 05/30/18 21:18 Foot - Left Heel Gram Stain - Final 05/30/18 21:18 Foot - Left Heel Wound Culture - Preliminary Klebsiella Pneumoniae Proteus Mirabilis Presumptive Mssa (Pbp2a Neg) Group D Strep Or Entero Coccus on ertrapenem contact isolation wound consult collagenase to wound Code(s): A49.9 - BACTERIAL INFECTION, UNSPECIFIED; Z16.12 - EXTENDED SPECTRUM BETA LACTAMASE (ESBL) RESISTANCE
--- NOTE | 2018-06-03 12:18 | CONSULT ---
Admitting History and Physical - Primary Care Physician PCP: Virginia Lynn - Admission History of Present Illness: 67 year old woman, NHR, with a PMHx of HTN, IDDM, hyperlipidemia, CAD, CKD-4, anemia, Parkinson's disease, dementia admitted 05/30/2018 from [facility] with hypoxia and hypotension. Last seen by me 12/06/2017- PEG being considered. Dys puree,honey thick liquids on tsp, Ensure pudding,magic cup d/c ensure compact and nectar thick liquids Sit pt up to 90 degrees, head flexed as possible tap lower lip with spoon to elicit mouth opening, gently depress tongue with spoon,wait for swallow reflex befiore next trial. PEG placed 12/12/17. Pt on chopped and nectar at [facility] with bolus GT feedings to supplement. Selected Entries 06/02/18 06/02/18 06/02/18 02:18 06:00 09:00 Breakfast Lunch Supper Temperature 98.3 F 98.3 F 98.3 F 06/02/18 06/02/18 06/02/18 09:23 13:30 18:00 Breakfast 100% Lunch 50% Supper 25% Temperature 98.4 F 97.9 F 06/02/18 06/03/18 06/03/18 21:00 02:00 04:11 Breakfast Lunch Supper Temperature 100.5 F H 100.4 F H 98.8 F 06/03/18 06/03/18 06:00 09:20 Breakfast 75% Lunch Supper Temperature 98.2 F Laboratory Tests 05/31/18 06/01/18 06/02/18 10:10 06:50 06:10 WBC 13.7 H 11.1 H 9.5 06/03/18 01:55 WBC 6.4 CXR 06/01 NAD History Source: Medical Record Limitations to Obtaining History: Dementia - Past Medical History [employer]: Yes: Dementia, Parkinson's Cardiovascular: Yes: Hyperlipdemia Renal/: Yes: Renal Failure (chronic stage 4 ), Renal Inusuff Heme/Onc: Yes: Anemia Psych: Yes: Depression Endocrine: Yes: Diabetes Mellitus - Smoking History Smoking history: Unknown if ever smoked Have you smoked in the past 12 months: No - Alcohol/Substance Use Hx Alcohol Use: No (unknown) History - Admission Reason For Visit: HYPOXIA,ALTERED MENTAL STATUS - Diagnostics X-ray: Report Reviewed - General Mental Status: Confused Attention: Distractible, Moderate Impairment Ability to Follow Directions: Poor Head/Neck Control: Needs Assist - Hearing Hearing: Impaired Speech Evaluation - Communication Primary Language: [id number] Communication: Yes: Non-Communicable (jargon) Oral Expression Ability: Yes: Severe Impairment, Non-Verbal (vocal, jargon) - Speech Production Apraxia: Yes Able to Make Needs Known: Yes: Severely Impaired Intelligibility: Yes: Severely Impaired - Speech Characteristics Voice Loudness: Normal Voice Pitch: Yes: Normal Voice Phonatory-based Quality: Yes: Normal Speech Pattern: Impaired Speech Clarity: < 25% Nasal Resonance: Normal - Language/Auditory Comprehension Observation: Able to respond to yes/no queries: No, Comprehends Conversational Speech: No (doubtful.) - Language/Verbal Expression Able to Respond to Simple Queries: Yes: Severely Impaired Able to Communicate Wants and Needs: Yes: Severely Impaired Functional Communication Status: Yes: Severely Impaired - Swallow Evaluation/Bedside Assessment Current Nutritional Intake: Dysphagia Minced, Rosser Textured Liquids Oral Secretions: Yes: WFL Dentition: Yes: Adequate Facial Symmetry at Rest: Facial Droop Right Laryngeal Movement: Reduced Excursion, Labored,delay initiation, Reduced Velocity A-P Transit: Impaired Timing of Swallow: Delayed Coughing/Throat Clear: Yes (1 responsive cough on nectar thick liquid for me) Recommendations - Speech Evaluation, Impression/Plan Impression: Good appetite. Readily accepting PO intake. Good tolerance reported by staff. 1 responsive cough on nectar thick liquid for me. - Dysphagia Impressions/Plan Swallowing Skills: Impaired Dysphagia Impressions: Mild Impairment, Moderate Impairment, Risk of Aspiration , Ongoing Evaluation *Silent aspiration: cannot be R/O at bedside Dysphagia Treatment Plan: Small Bites, Chin Tuck/Down, Trial Feedings, Safe Rate , 1/2 tsp. at a time, Elevate HOB during feed - Recommendations Diet Consistency: Dysphagia Minced Medication Administration: Crushed with applesauce Liquids: Rosser Thick, Other (as ordered. If cough/congestion noted, consider honey thick liquid/ MBS?) Supplement: Magic Cup, Ensure Pudding
[2018-06-03 12:52] LABS: MAGNESIUM 1.8 mg/dL (1.8-2.4)
--- NOTE | 2018-06-03 13:27 | PN ---
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, Physician History of Present Illness: Not verbally responsive No acute distress Low grade temp Breathing non-labored Wound c/s mixed organisms - Current Medication List Current Medications: Active Medications Albuterol/Ipratropium (Duoneb -) 1 amp NEB RTID [facility] Last Admin: 06/03/18 07:25 Dose: 1 amp Amino Acids (Prosource No Carb Liquid Pkt) 30 ml GT BID@0800,1730 [facility] Last Admin: 06/03/18 10:34 Dose: 30 ml Aspirin (Ecotrin -) 81 mg NR DAILY [facility] Last Admin: 06/03/18 10:35 Dose: 81 mg Bacitracin (Bacitracin -) 1 applic TP DAILY [facility] Last Admin: 06/03/18 10:41 Dose: 1 applic Brimonidine Tartrate (Alphagan P 0.1% -) 1 drop OU TID [facility] Last Admin: 06/03/18 05:45 Dose: 1 drop Calcium Carbonate/Cholecalciferol (Os-Isacc 500+D -) 1 tab GT DAILY [facility] Last Admin: 06/03/18 10:35 Dose: 1 tab Chlorhexidine Gluconate (Hibiclens For Decolonization -) 1 applic TP HS [facility] Last Admin: 06/02/18 21:19 Dose: Not Given Citalopram Hydrobromide (Celexa -) 10 mg GT DAILY [facility] Last Admin: 06/03/18 10:35 Dose: 10 mg Collagenase (Santyl -) 1 applic TP DAILY [facility]; Protocol Last Admin: 06/03/18 10:35 Dose: 1 applic Cyanocobalamin (Vitamin B12 -) 1,000 mcg GT DAILY [facility] Last Admin: 06/03/18 10:34 Dose: 1,000 mcg Docusate Sodium (Colace Liquid -) 300 mg GT DAILY [facility] Last Admin: 06/03/18 10:37 Dose: Not Given Dorzolamide HCl (Trusopt 2%) 1 drop OU TID [facility] Last Admin: 06/03/18 05:45 Dose: 1 drop Ferrous Sulfate (Feosol) 450 mg GT DAILY [facility] Last Admin: 06/02/18 10:09 Dose: 450 mg Heparin Sodium (Porcine) (Heparin -) 5,000 unit SQ BID [facility] Last Admin: 06/03/18 10:34 Dose: 5,000 unit Ertapenem 0.5 gm/ Sodium (Chloride) 50 mls @ 100 mls/hr IVPB DAILY [facility]; Protocol Last Admin: 06/03/18 10:33 Dose: 100 mls/hr Sodium Chloride (Normal Saline -) 1,000 mls @ 50 mls/hr IV [facility]IR [facility] Stop: 06/04/18 03:37 Last Admin: 06/03/18 03:45 Dose: 50 mls/hr Insulin Aspart (Novolog Vial Sliding Scale -) 1 vial SQ HS [facility]; Protocol Last Admin: 06/02/18 21:46 Dose: 4 unit Latanoprost (Xalatan 0.005% Eye Drops -) 1 drop OU HS [facility] Last Admin: 06/02/18 21:21 Dose: 1 drop Mupirocin (Bactroban Ointment (For Decolonization) -) 1 applic NS BID [facility] Stop: 06/05/18 09:59 Last Admin: 06/03/18 10:41 Dose: Not Given Pilocarpine HCl (Pilostat 1% -) 1 drop OU QID [facility] Last Admin: 06/03/18 10:40 Dose: 1 drop Polyethylene Glycol (Miralax (For Bowel Prep) -) 17 gm PO DAILY [facility] Last Admin: 06/03/18 10:36 Dose: Not Given Ranitidine HCl (Zantac Oral Solution -) 150 mg GT BID [facility] Last Admin: 06/03/18 10:35 Dose: 150 mg Timolol Maleate (Timoptic 0.25%) 1 drop OD DAILY [facility] Last Admin: 06/03/18 10:40 Dose: 1 applic - Objective Vital Signs: Vital Signs Temperature 98.2 F 06/03/18 06:00 Pulse Rate 68 06/03/18 06:00 Respiratory Rate 20 06/03/18 06:00 Blood Pressure 140/62 06/03/18 06:00 O2 Sat by Pulse Oximetry (%) 99 06/02/18 21:00 Constitutional: Yes: No Distress Cardiovascular: Yes: Regular Rate and Rhythm, S1, S2 Respiratory: Yes: Diminished Gastrointestinal: Yes: Normal Bowel Sounds, Soft. No: Tenderness Extremities: Yes: Other (+ contractures + necrotic heel ulcer) Labs: CBC, BMP 06/03/18 06:00 06/03/18 06:00 INR, PTT INR 0.96 (0.82-1.09) 05/30/18 18:50 Assessment/Plan S/P respiratory failure CHF/ pneumonia CKD Hx ESBL Parkinsonism/ OBS repeat cultures have been obtained If temps remain down and BC (-) substitute po ceftin 250mg bid
--- NOTE | 2018-06-03 13:54 | PN ---
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, Physician History of Present Illness: pulmonary awake,-resp distress - Current Medication List Current Medications: Active Medications Albuterol/Ipratropium (Duoneb -) 1 amp NEB RTID [facility] Last Admin: 06/03/18 13:24 Dose: 1 amp Amino Acids (Prosource No Carb Liquid Pkt) 30 ml GT BID@0800,1730 [facility] Last Admin: 06/03/18 10:34 Dose: 30 ml Aspirin (Ecotrin -) 81 mg NR DAILY [facility] Last Admin: 06/03/18 10:35 Dose: 81 mg Bacitracin (Bacitracin -) 1 applic TP DAILY [facility] Last Admin: 06/03/18 10:41 Dose: 1 applic Brimonidine Tartrate (Alphagan P 0.1% -) 1 drop OU TID [facility] Last Admin: 06/03/18 05:45 Dose: 1 drop Calcium Carbonate/Cholecalciferol (Os-Isacc 500+D -) 1 tab GT DAILY [facility] Last Admin: 06/03/18 10:35 Dose: 1 tab Chlorhexidine Gluconate (Hibiclens For Decolonization -) 1 applic TP HS [facility] Last Admin: 06/02/18 21:19 Dose: Not Given Citalopram Hydrobromide (Celexa -) 10 mg GT DAILY [facility] Last Admin: 06/03/18 10:35 Dose: 10 mg Collagenase (Santyl -) 1 applic TP DAILY [facility]; Protocol Last Admin: 06/03/18 10:35 Dose: 1 applic Cyanocobalamin (Vitamin B12 -) 1,000 mcg GT DAILY [facility] Last Admin: 06/03/18 10:34 Dose: 1,000 mcg Docusate Sodium (Colace Liquid -) 300 mg GT DAILY [facility] Last Admin: 06/03/18 10:37 Dose: Not Given Dorzolamide HCl (Trusopt 2%) 1 drop OU TID [facility] Last Admin: 06/03/18 05:45 Dose: 1 drop Ferrous Sulfate (Feosol) 450 mg GT DAILY [facility] Last Admin: 06/02/18 10:09 Dose: 450 mg Heparin Sodium (Porcine) (Heparin -) 5,000 unit SQ BID [facility] Last Admin: 06/03/18 10:34 Dose: 5,000 unit Ertapenem 0.5 gm/ Sodium (Chloride) 50 mls @ 100 mls/hr IVPB DAILY [facility]; Protocol Last Admin: 06/03/18 10:33 Dose: 100 mls/hr Sodium Chloride (Normal Saline -) 1,000 mls @ 50 mls/hr IV ASDIR [facility] Stop: 06/04/18 03:37 Last Admin: 06/03/18 03:45 Dose: 50 mls/hr Insulin Aspart (Novolog Vial Sliding Scale -) 1 vial SQ HS [facility]; Protocol Last Admin: 06/02/18 21:46 Dose: 4 unit Latanoprost (Xalatan 0.005% Eye Drops -) 1 drop OU HS [facility] Last Admin: 06/02/18 21:21 Dose: 1 drop Mupirocin (Bactroban Ointment (For Decolonization) -) 1 applic NS BID [facility] Stop: 06/05/18 09:59 Last Admin: 06/03/18 10:41 Dose: Not Given Pilocarpine HCl (Pilostat 1% -) 1 drop OU QID [facility] Last Admin: 06/03/18 10:40 Dose: 1 drop Polyethylene Glycol (Miralax (For Bowel Prep) -) 17 gm PO DAILY [facility] Last Admin: 06/03/18 10:36 Dose: Not Given Ranitidine HCl (Zantac Oral Solution -) 150 mg GT BID [facility] Last Admin: 06/03/18 10:35 Dose: 150 mg Timolol Maleate (Timoptic 0.25%) 1 drop OD DAILY [facility] Last Admin: 06/03/18 10:40 Dose: 1 applic - Objective Vital Signs: Vital Signs Temperature 98.2 F 06/03/18 06:00 Pulse Rate 68 06/03/18 06:00 Respiratory Rate 20 06/03/18 06:00 Blood Pressure 140/62 06/03/18 06:00 O2 Sat by Pulse Oximetry (%) 99 06/02/18 21:00 Constitutional: Yes: Calm, Thin Eyes: Yes: WNL HENT: Yes: WNL Neck: Yes: WNL Cardiovascular: Yes: Regular Rate and Rhythm, S1, S2 Respiratory: Yes: Diminished (poor inspiratory effort) Gastrointestinal: Yes: Normal Bowel Sounds, Soft Extremities: Yes: WNL Edema: No Labs: CBC, BMP 06/03/18 06:00 06/03/18 06:00 INR, PTT INR 0.96 (0.82-1.09) 05/30/18 18:50 Problem List - Problems (1) Altered mental status Code(s): R41.82 - ALTERED MENTAL STATUS, UNSPECIFIED Qualifiers: Altered mental status type: unspecified Qualified Code(s): R41.82 - Altered mental status, unspecified (2) CKD (chronic kidney disease) Code(s): N18.9 - CHRONIC KIDNEY DISEASE, UNSPECIFIED (3) Parkinson disease Code(s): G20 - PARKINSON'S DISEASE (4) Pneumonia Code(s): J18.9 - PNEUMONIA, UNSPECIFIED ORGANISM (5) Sepsis Code(s): A41.9 - SEPSIS, UNSPECIFIED ORGANISM (6) Anemia Code(s): D64.9 - ANEMIA, UNSPECIFIED Qualifiers: Anemia type: unspecified type Qualified Code(s): D64.9 - Anemia, unspecified Assessment/Plan A/P Pneumonia CAD HTN DM CKD Parkinsons Dementia - antibiotics - O2 to keep Spo2 >90% - inhaled bronchodilators - monitor lytes ,renal function - aspiration precautions - DVT prophylaxis DR DEL RIO
--- NOTE | 2018-06-03 13:55 | PN ---
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, Physician History of Present Illness: Pt seen and examined at bedside. She is arousable. - Current Medication List Current Medications: Active Medications Albuterol/Ipratropium (Duoneb -) 1 amp NEB RTID [facility] Last Admin: 06/03/18 13:24 Dose: 1 amp Amino Acids (Prosource No Carb Liquid Pkt) 30 ml GT BID@0800,1730 [facility] Last Admin: 06/03/18 10:34 Dose: 30 ml Aspirin (Ecotrin -) 81 mg NR DAILY [facility] Last Admin: 06/03/18 10:35 Dose: 81 mg Bacitracin (Bacitracin -) 1 applic TP DAILY [facility] Last Admin: 06/03/18 10:41 Dose: 1 applic Brimonidine Tartrate (Alphagan P 0.1% -) 1 drop OU TID [facility] Last Admin: 06/03/18 05:45 Dose: 1 drop Calcium Carbonate/Cholecalciferol (Os-Isacc 500+D -) 1 tab GT DAILY [facility] Last Admin: 06/03/18 10:35 Dose: 1 tab Chlorhexidine Gluconate (Hibiclens For Decolonization -) 1 applic TP HS [facility] Last Admin: 06/02/18 21:19 Dose: Not Given Citalopram Hydrobromide (Celexa -) 10 mg GT DAILY [facility] Last Admin: 06/03/18 10:35 Dose: 10 mg Collagenase (Santyl -) 1 applic TP DAILY [facility]; Protocol Last Admin: 06/03/18 10:35 Dose: 1 applic Cyanocobalamin (Vitamin B12 -) 1,000 mcg GT DAILY [facility] Last Admin: 06/03/18 10:34 Dose: 1,000 mcg Docusate Sodium (Colace Liquid -) 300 mg GT DAILY [facility] Last Admin: 06/03/18 10:37 Dose: Not Given Dorzolamide HCl (Trusopt 2%) 1 drop OU TID [facility] Last Admin: 06/03/18 05:45 Dose: 1 drop Ferrous Sulfate (Feosol) 450 mg GT DAILY [facility] Last Admin: 06/02/18 10:09 Dose: 450 mg Heparin Sodium (Porcine) (Heparin -) 5,000 unit SQ BID [facility] Last Admin: 06/03/18 10:34 Dose: 5,000 unit Ertapenem 0.5 gm/ Sodium (Chloride) 50 mls @ 100 mls/hr IVPB DAILY [facility]; Protocol Last Admin: 06/03/18 10:33 Dose: 100 mls/hr Sodium Chloride (Normal Saline -) 1,000 mls @ 50 mls/hr IV ASDIR [facility] Stop: 06/04/18 03:37 Last Admin: 06/03/18 03:45 Dose: 50 mls/hr Insulin Aspart (Novolog Vial Sliding Scale -) 1 vial SQ HS [facility]; Protocol Last Admin: 06/02/18 21:46 Dose: 4 unit Latanoprost (Xalatan 0.005% Eye Drops -) 1 drop OU HS [facility] Last Admin: 06/02/18 21:21 Dose: 1 drop Mupirocin (Bactroban Ointment (For Decolonization) -) 1 applic NS BID [facility] Stop: 06/05/18 09:59 Last Admin: 06/03/18 10:41 Dose: Not Given Pilocarpine HCl (Pilostat 1% -) 1 drop OU QID [facility] Last Admin: 06/03/18 10:40 Dose: 1 drop Polyethylene Glycol (Miralax (For Bowel Prep) -) 17 gm PO DAILY [facility] Last Admin: 06/03/18 10:36 Dose: Not Given Ranitidine HCl (Zantac Oral Solution -) 150 mg GT BID [facility] Last Admin: 06/03/18 10:35 Dose: 150 mg Timolol Maleate (Timoptic 0.25%) 1 drop OD DAILY [facility] Last Admin: 06/03/18 10:40 Dose: 1 applic - Objective Vital Signs: Vital Signs Temperature 98.2 F 06/03/18 06:00 Pulse Rate 68 06/03/18 06:00 Respiratory Rate 20 06/03/18 06:00 Blood Pressure 140/62 06/03/18 06:00 O2 Sat by Pulse Oximetry (%) 99 06/02/18 21:00 Constitutional: Yes: Calm Eyes: Yes: Conjunctiva Clear HENT: Yes: Atraumatic Cardiovascular: Yes: S1, S2 Respiratory: Yes: CTA Bilaterally Gastrointestinal: Yes: Soft, Other (peg) Genitourinary: Yes: Incontinence Musculoskeletal: Yes: Muscle Weakness Edema: No Neurological: Yes: Pre-Existing Deficit Labs: CBC, BMP 06/03/18 06:00 06/03/18 06:00 INR, PTT INR 0.96 (0.82-1.09) 05/30/18 18:50 Problem List - Problems (1) Altered mental status Code(s): R41.82 - ALTERED MENTAL STATUS, UNSPECIFIED Qualifiers: Altered mental status type: unspecified Qualified Code(s): R41.82 - Altered mental status, unspecified (2) CKD (chronic kidney disease) Code(s): N18.9 - CHRONIC KIDNEY DISEASE, UNSPECIFIED (3) Sepsis Code(s): A41.9 - SEPSIS, UNSPECIFIED ORGANISM Assessment/Plan Current Medications Generic Name Dose Route Start Last Admin Trade Name Freq PRN Reason Stop Dose Admin Albuterol/Ipratropium 1 amp 05/31/18 20:00 06/03/18 13:24 Duoneb - NEB 1 amp RTID [facility] Administration Amino Acids 30 ml 06/01/18 08:00 06/03/18 10:34 Prosource No Carb Liquid Pkt GT 30 ml BID@0800,1730 [facility] Administration Aspirin 81 mg 06/01/18 10:00 06/03/18 10:35 Ecotrin - NR 81 mg DAILY [facility] Administration Bacitracin 1 applic 06/01/18 10:00 06/03/18 10:41 Bacitracin - TP 1 applic DAILY [facility] Administration Brimonidine Tartrate 1 drop 05/31/18 22:00 06/03/18 05:45 Alphagan P 0.1% - OU 1 drop TID [facility] Administration Calcium Carbonate/Cholecalciferol 1 tab 06/01/18 10:00 06/03/18 10:35 Os-Isacc 500+D - GT 1 tab DAILY [facility] Administration Chlorhexidine Gluconate 1 applic 05/31/18 22:00 06/02/18 21:19 Hibiclens For Decolonization - TP Not Given HS [facility] Citalopram Hydrobromide 10 mg 06/01/18 10:00 06/03/18 10:35 Celexa - GT 10 mg DAILY [facility] Administration Collagenase 1 applic 06/01/18 10:00 06/03/18 10:35 Santyl - TP 1 applic DAILY [facility] Administration Protocol Cyanocobalamin 1,000 mcg 06/01/18 10:00 06/03/18 10:34 Vitamin B12 - GT 1,000 mcg DAILY [facility] Administration Docusate Sodium 300 mg 06/01/18 10:00 06/03/18 10:37 Colace Liquid - GT Not Given DAILY [facility] Dorzolamide HCl 1 drop 05/31/18 22:00 06/03/18 05:45 Trusopt 2% OU 1 drop TID [facility] Administration Ferrous Sulfate 450 mg 06/01/18 10:00 06/02/18 10:09 Feosol GT 450 mg DAILY [facility] Administration Heparin Sodium (Porcine) 5,000 unit 05/31/18 22:00 06/03/18 10:34 Heparin - SQ 5,000 unit BID [facility] Administration Ertapenem 0.5 gm/ Sodium 50 mls @ 100 mls/hr 06/01/18 10:00 06/03/18 10:33 Chloride IVPB 100 mls/hr DAILY [facility] Administration Protocol Sodium Chloride 1,000 mls @ 50 mls/hr 06/03/18 03:45 06/03/18 03:45 Normal Saline - IV 06/04/18 03:37 50 mls/hr ASDIR [facility] Administration Insulin Aspart 1 vial 05/31/18 22:00 06/02/18 21:46 Novolog Vial Sliding Scale - SQ 4 unit HS [facility] Administration Protocol Latanoprost 1 drop 05/31/18 22:00 06/02/18 21:21 Xalatan 0.005% Eye Drops - OU 1 drop HS [facility] Administration Mupirocin 1 applic 05/31/18 22:00 06/03/18 10:41 Bactroban Ointment (For Decolonization) - NS 06/05/18 09:59 Not Given BID [facility] Pilocarpine HCl 1 drop 05/31/18 22:00 06/03/18 10:40 Pilostat 1% - OU 1 drop QID [facility] Administration Polyethylene Glycol 17 gm 06/01/18 10:00 06/03/18 10:36 Miralax (For Bowel Prep) - PO Not Given DAILY [facility] Ranitidine HCl 150 mg 05/31/18 22:00 06/03/18 10:35 Zantac Oral Solution - GT 150 mg BID [facility] Administration Timolol Maleate 1 drop 06/01/18 10:00 06/03/18 10:40 Timoptic 0.25% OD 1 applic DAILY [facility] Administration Impression 1. CKD 2. anemia 3. change in mental status 4. sepsis 5. DM 6. Parkinson's disease 7. Depression 8. hypernatremia Plan - change fluids to 1/s ns - start free water via peg tube - dietary eval - repeat labs in am - follow cultures - abx per ID - monitor roxie Brooks
[2018-06-03] MEDS: SODIUM CHLORIDE 0.45% 1,000 ML IV SCH (15:17)
[2018-06-03] MEDS: FERROUS SO4 300 MG/5 ML ORAL SOLN UNIT DOSE CUPS GT SCH (15:17)
--- NOTE | 2018-06-03 15:52 | PN ---
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 (short form) - Note 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: Vascular Surgery Pt seen and examined. Left heel ulcer unstagable. Foot is warm. Pt is contracted. Please place heel pads, and santyl to left heel. Offload heel please. Edgardo Gonzalez DO
[2018-06-03] MEDS: CHLORHEXIDINE GLUCONATE 4% CLEANSER FOR DECOLONIZATION TP SCH (21:45)
[2018-06-03] MEDS: INSULIN SLIDING SCALE (NOVOLOG) 1 VIAL SQ SCH (21:48)
[2018-06-03] MEDS: LATANOPROST 0.005% OPHTH SOLN 2.5ML BOTTLE OU SCH (22:29)
[2018-06-03] MEDS ORDERED: INSULIN (NOVOLOG) ASPART 100 UNITS/ML 10ML VIAL SQ ONE (23:48)
[2018-06-04] MEDS: DORZOLAMIDE 2% HCL OPHTHALMIC SOLUTION 10 ML BOTTLE OU SCH ×3 (05:33→22:27)
[2018-06-04] MEDS: BRIMONIDINE TARTRATE 0.1% OPHTHALMIC 5 ML BOTTLE OU SCH ×3 (05:33→22:26)
[2018-06-04 07:19] LABS: BASO % 0.1 % (0-2.0); EOS % 1.3 % (0-4.5); HEMATOCRIT 28.6 % (32.4-45.2); HEMOGLOBIN 9.7 GM/dL (10.7-15.3); LYMPH % 7.4 % (8-40); MCH 32.2 pg (25.7-33.7); MCHC 33.8 g/dl (32.0-36.0); MEAN CELL VOLUME 95.3 fl (80-96); MEAN PLT VOLUME 7.8 fl (7.5-11.1); MONO % 4.3 % (3.8-10.2); NEUT % 86.9 % (42.8-82.8); PLATELET COUNT 189 K/MM3 (134-434); RDW 13.5 % (11.6-15.6)
[2018-06-04] MEDS: ALBUTEROL SO4 2.5/IPRATROPIUM 0.5 INH SOL 3 ML VIAL.NEB. NEB SCH ×3 (07:35→20:17)
[2018-06-04 07:48] LABS: ALBUMIN 2.3 g/dl (3.4-5.0); ANION GAP 10 (8-16); BLOOD UREA NITROGEN 48 mg/dL (7-18); CALCIUM 9.6 mg/dL (8.5-10.1); CHLORIDE 117 mmol/L (98-107); CO2 21 mmol/L (21-32); CREATININE 1.9 mg/dL (0.55-1.02); GLUCOSE,RANDOM 148 mg/dL (74-106); POTASSIUM 4.2 mmol/L (3.5-5.1); SGOT/AST 9 U/L (15-37); SGPT/ALT 11 U/L (12-78); SODIUM 148 mmol/L (136-145)
[2018-06-04 07:50] LABS: ALK PHOS 90 U/L (45-117); BILIRUBIN,TOTAL 0.3 mg/dL (0.2-1.0); TOT PROT 6.6 g/dl (6.4-8.2)
[2018-06-04] MEDS: FERROUS SO4 300 MG/5 ML ORAL SOLN UNIT DOSE CUPS GT SCH (10:28)
[2018-06-04] MEDS: CITALOPRAM HYDROBROMIDE 10 MG TABLET (FP) GT SCH (10:29)
[2018-06-04] MEDS: CALCIUM 500MG/VIT-D 200 UNITS COMBO TABLET (FP) GT SCH (10:29)
[2018-06-04] MEDS: AMINO ACIDS/PROTEIN HYDROLYS 30 ML LIQUID.PKT GT SCH ×2 (10:29→17:35)
[2018-06-04] MEDS: RANITIDINE HCL 150 MG/10 ML UNIT-DOSE GT SCH ×2 (10:29→22:26)
[2018-06-04] MEDS: BACITRACIN 15 GM TUBE TOPICAL OINTMENT TP SCH (10:29)
[2018-06-04] MEDS: ASPIRIN COATED 81 MG TABLET.EC NR SCH (10:29)
[2018-06-04] MEDS: MUPIROCIN 2% TOPICAL OINTMENT FOR DECOLONIZATION NS SCH ×2 (10:30→22:25)
[2018-06-04] MEDS: DOCUSATE NA 100 MG/10 ML UNIT-DOSE CUPS GT SCH (10:30)
[2018-06-04] MEDS: HEPARIN NA (PORCINE) 5,000 UNITS/ML 1ML VIAL SQ SCH ×2 (10:30→22:26)
[2018-06-04] MEDS: ERTAPENEM SODIUM 0.5 GM in SODIUM CHLORIDE 50 ML IVPB SCH (10:30)
[2018-06-04] MEDS: CYANOCOBALAMIN 1,000 MCG TABLET (FP) GT SCH (10:31)
[2018-06-04] MEDS: COLLAGENASE CLOSTRIDIUM HIST. 30 GRAMS TUBE TP SCH (10:31)
[2018-06-04] MEDS: TIMOLOL 0.25% OPHTHALMIC SOL 5 ML BOTTLE OD SCH (10:31)
[2018-06-04] MEDS: POLYETHYLENE GLYCOL 3350 255 GM BTL PO SCH (10:31)
[2018-06-04] MEDS: PILOCARPINE 1% OPHTHALMIC SOLUTION 15 ML BOTTLE OU SCH ×4 (10:32→22:27)
--- NOTE | 2018-06-04 11:23 | PN ---
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, Physician Chief Complaint: patient seen and examined moaning in bed manley cath peg - Current Medication List Current Medications: Active Medications Albuterol/Ipratropium (Duoneb -) 1 amp NEB RTID [facility] Last Admin: 06/04/18 07:35 Dose: 1 amp Amino Acids (Prosource No Carb Liquid Pkt) 30 ml GT BID@0800,1730 [facility] Last Admin: 06/04/18 10:29 Dose: 30 ml Aspirin (Ecotrin -) 81 mg NR DAILY [facility] Last Admin: 06/04/18 10:29 Dose: 81 mg Bacitracin (Bacitracin -) 1 applic TP DAILY [facility] Last Admin: 06/04/18 10:29 Dose: 1 applic Brimonidine Tartrate (Alphagan P 0.1% -) 1 drop OU TID [facility] Last Admin: 06/04/18 05:33 Dose: 1 drop Calcium Carbonate/Cholecalciferol (Os-Isacc 500+D -) 1 tab GT DAILY [facility] Last Admin: 06/04/18 10:29 Dose: 1 tab Chlorhexidine Gluconate (Hibiclens For Decolonization -) 1 applic TP HS [facility] Last Admin: 06/03/18 21:45 Dose: Not Given Citalopram Hydrobromide (Celexa -) 10 mg GT DAILY [facility] Last Admin: 06/04/18 10:29 Dose: 10 mg Collagenase (Santyl -) 1 applic TP DAILY [facility]; Protocol Last Admin: 06/04/18 10:31 Dose: 1 applic Cyanocobalamin (Vitamin B12 -) 1,000 mcg GT DAILY [facility] Last Admin: 06/04/18 10:31 Dose: 1,000 mcg Docusate Sodium (Colace Liquid -) 300 mg GT DAILY [facility] Last Admin: 06/04/18 10:30 Dose: Not Given Dorzolamide HCl (Trusopt 2%) 1 drop OU TID [facility] Last Admin: 06/04/18 05:33 Dose: 1 drop Ferrous Sulfate (Feosol) 450 mg GT DAILY [facility] Last Admin: 06/04/18 10:28 Dose: 450 mg Heparin Sodium (Porcine) (Heparin -) 5,000 unit SQ BID [facility] Last Admin: 06/04/18 10:30 Dose: 5,000 unit Ertapenem 0.5 gm/ Sodium (Chloride) 50 mls @ 100 mls/hr IVPB DAILY [facility]; Protocol Last Admin: 06/04/18 10:30 Dose: 100 mls/hr Sodium Chloride (1/2 Normal Saline) 1,000 mls @ 42 mls/hr IV ASDIR [facility] Last Admin: 06/03/18 15:17 Dose: 42 mls/hr Insulin Aspart (Novolog Vial Sliding Scale -) 1 vial SQ ACHS [facility]; Protocol Latanoprost (Xalatan 0.005% Eye Drops -) 1 drop OU HS [facility] Last Admin: 06/03/18 22:29 Dose: 1 drop Multivitamins/Minerals (Theragran-M) 1 each PO DAILY [facility] Mupirocin (Bactroban Ointment (For Decolonization) -) 1 applic NS BID [facility] Stop: 06/05/18 09:59 Last Admin: 06/04/18 10:30 Dose: Not Given Pilocarpine HCl (Pilostat 1% -) 1 drop OU QID [facility] Last Admin: 06/04/18 10:32 Dose: 1 drop Polyethylene Glycol (Miralax (For Bowel Prep) -) 17 gm PO DAILY [facility] Last Admin: 06/04/18 10:31 Dose: Not Given Ranitidine HCl (Zantac Oral Solution -) 150 mg GT BID [facility] Last Admin: 06/04/18 10:29 Dose: 150 mg Timolol Maleate (Timoptic 0.25%) 1 drop OD DAILY [facility] Last Admin: 06/04/18 10:31 Dose: 1 applic - Objective Vital Signs: Vital Signs Temperature 98 F 06/04/18 07:11 Pulse Rate 77 06/04/18 07:11 Respiratory Rate 20 06/04/18 07:11 Blood Pressure 144/88 06/04/18 07:11 O2 Sat by Pulse Oximetry (%) 97 06/03/18 21:40 Constitutional: Yes: Calm, Thin Cardiovascular: Yes: Regular Rate and Rhythm, S1, S2 Respiratory: Yes: CTA Bilaterally, Diminished (at the bases) Gastrointestinal: Yes: Normal Bowel Sounds, Soft, Other (peg) Genitourinary: Yes: Manley Present Edema: No Neurological: Yes: Other (contracted) Labs: CBC, BMP 06/04/18 06:00 06/04/18 06:00 INR, PTT INR 0.96 (0.82-1.09) 05/30/18 18:50 Problem List - Problems (1) Sepsis Assessment/Plan: lastest urince culture-pending organism contact isolation for ESBL- h/o uti ESBL on last admission on ertrapenem awaiting final cultures currently afebrile normal WBC count Code(s): A41.9 - SEPSIS, UNSPECIFIED ORGANISM (2) CKD (chronic kidney disease) Assessment/Plan: on ivf cr now slightly better from 2.1 now is 1.9 Code(s): N18.9 - CHRONIC KIDNEY DISEASE, UNSPECIFIED (3) Anemia Assessment/Plan: on iron check iron panel- noted on ferrous sulfate Code(s): D64.9 - ANEMIA, UNSPECIFIED Qualifiers: Anemia type: unspecified type Qualified Code(s): D64.9 - Anemia, unspecified (4) Glaucoma Assessment/Plan: eye drops Code(s): H40.9 - UNSPECIFIED GLAUCOMA (5) ESBL (extended spectrum beta-lactamase) producing bacteria infection Assessment/Plan: Microbiology 05/30/18 21:18 Foot - Left Heel Gram Stain - Final 05/30/18 21:18 Foot - Left Heel Wound Culture - Preliminary Klebsiella Pneumoniae Proteus Mirabilis Presumptive Mssa (Pbp2a Neg) Group D Strep Or Entero Coccus on ertrapenem contact isolation wound consult-noted off load heals collagenase to wound Microbiology 06/03/18 03:10 Urine - Urine - Catheterized Urine Culture - Preliminary Pending Organism Code(s): A49.9 - BACTERIAL INFECTION, UNSPECIFIED; Z16.12 - EXTENDED SPECTRUM BETA LACTAMASE (ESBL) RESISTANCE (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
--- NOTE | 2018-06-04 12:07 | PN ---
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 She did not like the cream of rice. Good tolerance without signs of aspiration observed by staff. Consider nocturnal TF to allow pt to maintain appetite. PO supplements after meals- magic cup. Add sweetener to foods to increase acceptance. eg cream of wheat.
--- NOTE | 2018-06-04 12:17 | PN ---
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, Physician History of Present Illness: Not verbally responsive No acute distress Afebrile Breathing non-labored Wound c/s mixed organisms Urine c/s pending organism - Current Medication List Current Medications: Active Medications Albuterol/Ipratropium (Duoneb -) 1 amp NEB RTID [facility] Last Admin: 06/04/18 07:35 Dose: 1 amp Amino Acids (Prosource No Carb Liquid Pkt) 30 ml GT BID@0800,1730 [facility] Last Admin: 06/04/18 10:29 Dose: 30 ml Aspirin (Ecotrin -) 81 mg NR DAILY [facility] Last Admin: 06/04/18 10:29 Dose: 81 mg Bacitracin (Bacitracin -) 1 applic TP DAILY [facility] Last Admin: 06/04/18 10:29 Dose: 1 applic Brimonidine Tartrate (Alphagan P 0.1% -) 1 drop OU TID [facility] Last Admin: 06/04/18 05:33 Dose: 1 drop Calcium Carbonate/Cholecalciferol (Os-Isacc 500+D -) 1 tab GT DAILY [facility] Last Admin: 06/04/18 10:29 Dose: 1 tab Chlorhexidine Gluconate (Hibiclens For Decolonization -) 1 applic TP HS [facility] Last Admin: 06/03/18 21:45 Dose: Not Given Citalopram Hydrobromide (Celexa -) 10 mg GT DAILY [facility] Last Admin: 06/04/18 10:29 Dose: 10 mg Collagenase (Santyl -) 1 applic TP DAILY [facility]; Protocol Last Admin: 06/04/18 10:31 Dose: 1 applic Cyanocobalamin (Vitamin B12 -) 1,000 mcg GT DAILY [facility] Last Admin: 06/04/18 10:31 Dose: 1,000 mcg Docusate Sodium (Colace Liquid -) 300 mg GT DAILY [facility] Last Admin: 06/04/18 10:30 Dose: Not Given Dorzolamide HCl (Trusopt 2%) 1 drop OU TID [facility] Last Admin: 06/04/18 05:33 Dose: 1 drop Ferrous Sulfate (Feosol) 450 mg GT DAILY [facility] Last Admin: 06/04/18 10:28 Dose: 450 mg Heparin Sodium (Porcine) (Heparin -) 5,000 unit SQ BID [facility] Last Admin: 06/04/18 10:30 Dose: 5,000 unit Ertapenem 0.5 gm/ Sodium (Chloride) 50 mls @ 100 mls/hr IVPB DAILY [facility]; Protocol Last Admin: 06/04/18 10:30 Dose: 100 mls/hr Sodium Chloride (1/2 Normal Saline) 1,000 mls @ 42 mls/hr IV ASDIR [facility] Last Admin: 06/03/18 15:17 Dose: 42 mls/hr Insulin Aspart (Novolog Vial Sliding Scale -) 1 vial SQ ACHS [facility]; Protocol Insulin Detemir (Levemir Vial) 10 units SQ AM [facility] Latanoprost (Xalatan 0.005% Eye Drops -) 1 drop OU HS [facility] Last Admin: 06/03/18 22:29 Dose: 1 drop Multivitamins/Minerals (Theragran-M) 1 each PO DAILY [facility] Mupirocin (Bactroban Ointment (For Decolonization) -) 1 applic NS BID [facility] Stop: 06/05/18 09:59 Last Admin: 06/04/18 10:30 Dose: Not Given Pilocarpine HCl (Pilostat 1% -) 1 drop OU QID [facility] Last Admin: 06/04/18 10:32 Dose: 1 drop Polyethylene Glycol (Miralax (For Bowel Prep) -) 17 gm PO DAILY [facility] Last Admin: 06/04/18 10:31 Dose: Not Given Ranitidine HCl (Zantac Oral Solution -) 150 mg GT BID [facility] Last Admin: 06/04/18 10:29 Dose: 150 mg Timolol Maleate (Timoptic 0.25%) 1 drop OD DAILY [facility] Last Admin: 06/04/18 10:31 Dose: 1 applic - Objective Vital Signs: Vital Signs Temperature 98 F 06/04/18 07:11 Pulse Rate 77 06/04/18 07:11 Respiratory Rate 20 06/04/18 07:11 Blood Pressure 144/88 06/04/18 07:11 O2 Sat by Pulse Oximetry (%) 97 06/04/18 09:00 Constitutional: Yes: No Distress Eyes: Yes: Conjunctiva Clear Cardiovascular: Yes: Regular Rate and Rhythm, S1, S2 Respiratory: Yes: CTA Bilaterally, Diminished Gastrointestinal: Yes: Normal Bowel Sounds, Soft. No: Tenderness Extremities: Yes: Other (+ contractures) Labs: CBC, BMP 06/04/18 06:00 06/04/18 06:00 INR, PTT INR 0.96 (0.82-1.09) 05/30/18 18:50 Assessment/Plan S/P respiratory failure CHF/ pneumonia CKD Hx ESBL Parkinsonism/ OBS repeat blood cultures no growth Await urine c/s
[2018-06-04] MEDS: INSULIN SLIDING SCALE (NOVOLOG) 1 VIAL SQ SCH ×3 (12:57→22:30)
--- NOTE | 2018-06-04 13:36 | PN ---
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, Physician History of Present Illness: pulmonary no distress,-sob - Current Medication List Current Medications: Active Medications Albuterol/Ipratropium (Duoneb -) 1 amp NEB RTID [facility] Last Admin: 06/04/18 07:35 Dose: 1 amp Amino Acids (Prosource No Carb Liquid Pkt) 30 ml GT BID@0800,1730 [facility] Last Admin: 06/04/18 10:29 Dose: 30 ml Aspirin (Ecotrin -) 81 mg NR DAILY [facility] Last Admin: 06/04/18 10:29 Dose: 81 mg Bacitracin (Bacitracin -) 1 applic TP DAILY [facility] Last Admin: 06/04/18 10:29 Dose: 1 applic Brimonidine Tartrate (Alphagan P 0.1% -) 1 drop OU TID [facility] Last Admin: 06/04/18 05:33 Dose: 1 drop Calcium Carbonate/Cholecalciferol (Os-Isacc 500+D -) 1 tab GT DAILY [facility] Last Admin: 06/04/18 10:29 Dose: 1 tab Chlorhexidine Gluconate (Hibiclens For Decolonization -) 1 applic TP HS [facility] Last Admin: 06/03/18 21:45 Dose: Not Given Citalopram Hydrobromide (Celexa -) 10 mg GT DAILY [facility] Last Admin: 06/04/18 10:29 Dose: 10 mg Collagenase (Santyl -) 1 applic TP DAILY [facility]; Protocol Last Admin: 06/04/18 10:31 Dose: 1 applic Cyanocobalamin (Vitamin B12 -) 1,000 mcg GT DAILY [facility] Last Admin: 06/04/18 10:31 Dose: 1,000 mcg Docusate Sodium (Colace Liquid -) 300 mg GT DAILY [facility] Last Admin: 06/04/18 10:30 Dose: Not Given Dorzolamide HCl (Trusopt 2%) 1 drop OU TID [facility] Last Admin: 06/04/18 05:33 Dose: 1 drop Ferrous Sulfate (Feosol) 450 mg GT DAILY [facility] Last Admin: 06/04/18 10:28 Dose: 450 mg Heparin Sodium (Porcine) (Heparin -) 5,000 unit SQ BID [facility] Last Admin: 06/04/18 10:30 Dose: 5,000 unit Ertapenem 0.5 gm/ Sodium (Chloride) 50 mls @ 100 mls/hr IVPB DAILY [facility]; Protocol Last Admin: 06/04/18 10:30 Dose: 100 mls/hr Sodium Chloride (1/2 Normal Saline) 1,000 mls @ 42 mls/hr IV ASDIR [facility] Last Admin: 06/03/18 15:17 Dose: 42 mls/hr Insulin Aspart (Novolog Vial Sliding Scale -) 1 vial SQ ACHS [facility]; Protocol Last Admin: 06/04/18 12:57 Dose: 6 units Insulin Detemir (Levemir Vial) 10 units SQ AM [facility] Latanoprost (Xalatan 0.005% Eye Drops -) 1 drop OU HS [facility] Last Admin: 06/03/18 22:29 Dose: 1 drop Multivitamins/Minerals (Theragran-M) 1 each PO DAILY [facility] Mupirocin (Bactroban Ointment (For Decolonization) -) 1 applic NS BID [facility] Stop: 06/05/18 09:59 Last Admin: 06/04/18 10:30 Dose: Not Given Pilocarpine HCl (Pilostat 1% -) 1 drop OU QID [facility] Last Admin: 06/04/18 10:32 Dose: 1 drop Polyethylene Glycol (Miralax (For Bowel Prep) -) 17 gm PO DAILY [facility] Last Admin: 06/04/18 10:31 Dose: Not Given Ranitidine HCl (Zantac Oral Solution -) 150 mg GT BID [facility] Last Admin: 06/04/18 10:29 Dose: 150 mg Timolol Maleate (Timoptic 0.25%) 1 drop OD DAILY [facility] Last Admin: 06/04/18 10:31 Dose: 1 applic - Objective Vital Signs: Vital Signs Temperature 98 F 06/04/18 07:11 Pulse Rate 77 06/04/18 07:11 Respiratory Rate 20 06/04/18 07:11 Blood Pressure 144/88 06/04/18 07:11 O2 Sat by Pulse Oximetry (%) 97 06/04/18 09:00 Constitutional: Yes: Thin, Other (sleeping) Eyes: Yes: WNL HENT: Yes: WNL Neck: Yes: WNL Cardiovascular: Yes: Regular Rate and Rhythm, S1, S2 Respiratory: Yes: Diminished Gastrointestinal: Yes: Normal Bowel Sounds, Soft Extremities: Yes: WNL Edema: No Labs: CBC, BMP 06/04/18 06:00 06/04/18 06:00 INR, PTT INR 0.96 (0.82-1.09) 05/30/18 18:50 Problem List - Problems (1) Altered mental status Code(s): R41.82 - ALTERED MENTAL STATUS, UNSPECIFIED Qualifiers: Altered mental status type: unspecified Qualified Code(s): R41.82 - Altered mental status, unspecified (2) CKD (chronic kidney disease) Code(s): N18.9 - CHRONIC KIDNEY DISEASE, UNSPECIFIED (3) Parkinson disease Code(s): G20 - PARKINSON'S DISEASE (4) Pneumonia Code(s): J18.9 - PNEUMONIA, UNSPECIFIED ORGANISM (5) Sepsis Code(s): A41.9 - SEPSIS, UNSPECIFIED ORGANISM (6) Anemia Code(s): D64.9 - ANEMIA, UNSPECIFIED Qualifiers: Anemia type: unspecified type Qualified Code(s): D64.9 - Anemia, unspecified Assessment/Plan A/P Pneumonia CAD HTN DM CKD Parkinsons Dementia - antibiotics as per ID - O2 to keep Spo2 >90% - inhaled bronchodilators - monitor lytes ,renal function - aspiration precautions - DVT prophylaxis DR DEL RIO
[2018-06-04] MEDS: SODIUM CHLORIDE 0.45% 1,000 ML IV SCH (14:28)
[2018-06-04] MEDS: MULTIVITAMINS THER W-MINERALS COMBO TABLET (FP) PO SCH (14:28)
--- NOTE | 2018-06-04 15:59 | PN ---
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, Physician History of Present Illness: Pt seen and examined at bedside. She is awake and appears comfortable. She has been eating her meals with one to one feeds. - Current Medication List Current Medications: Active Medications Albuterol/Ipratropium (Duoneb -) 1 amp NEB RTID [facility] Last Admin: 06/04/18 14:40 Dose: 1 amp Amino Acids (Prosource No Carb Liquid Pkt) 30 ml GT BID@0800,1730 [facility] Last Admin: 06/04/18 10:29 Dose: 30 ml Aspirin (Ecotrin -) 81 mg NR DAILY [facility] Last Admin: 06/04/18 10:29 Dose: 81 mg Bacitracin (Bacitracin -) 1 applic TP DAILY [facility] Last Admin: 06/04/18 10:29 Dose: 1 applic Brimonidine Tartrate (Alphagan P 0.1% -) 1 drop OU TID [facility] Last Admin: 06/04/18 14:29 Dose: 1 drop Calcium Carbonate/Cholecalciferol (Os-Isacc 500+D -) 1 tab GT DAILY [facility] Last Admin: 06/04/18 10:29 Dose: 1 tab Chlorhexidine Gluconate (Hibiclens For Decolonization -) 1 applic TP HS [facility] Last Admin: 06/03/18 21:45 Dose: Not Given Citalopram Hydrobromide (Celexa -) 10 mg GT DAILY [facility] Last Admin: 06/04/18 10:29 Dose: 10 mg Collagenase (Santyl -) 1 applic TP DAILY [facility]; Protocol Last Admin: 06/04/18 10:31 Dose: 1 applic Cyanocobalamin (Vitamin B12 -) 1,000 mcg GT DAILY [facility] Last Admin: 06/04/18 10:31 Dose: 1,000 mcg Docusate Sodium (Colace Liquid -) 300 mg GT DAILY [facility] Last Admin: 06/04/18 10:30 Dose: Not Given Dorzolamide HCl (Trusopt 2%) 1 drop OU TID [facility] Last Admin: 06/04/18 14:31 Dose: 1 drop Ferrous Sulfate (Feosol) 450 mg GT DAILY [facility] Last Admin: 06/04/18 10:28 Dose: 450 mg Heparin Sodium (Porcine) (Heparin -) 5,000 unit SQ BID [facility] Last Admin: 06/04/18 10:30 Dose: 5,000 unit Ertapenem 0.5 gm/ Sodium (Chloride) 50 mls @ 100 mls/hr IVPB DAILY [facility]; Protocol Last Admin: 06/04/18 10:30 Dose: 100 mls/hr Sodium Chloride (1/2 Normal Saline) 1,000 mls @ 42 mls/hr IV ASDIR [facility] Last Admin: 06/04/18 14:28 Dose: Not Given Insulin Aspart (Novolog Vial Sliding Scale -) 1 vial SQ ACHS [facility]; Protocol Last Admin: 06/04/18 12:57 Dose: 6 units Insulin Detemir (Levemir Vial) 10 units SQ AM [facility] Latanoprost (Xalatan 0.005% Eye Drops -) 1 drop OU HS [facility] Last Admin: 06/03/18 22:29 Dose: 1 drop Multivitamins/Minerals (Theragran-M) 1 each PO DAILY [facility] Last Admin: 06/04/18 14:28 Dose: 1 each Mupirocin (Bactroban Ointment (For Decolonization) -) 1 applic NS BID [facility] Stop: 06/05/18 09:59 Last Admin: 06/04/18 10:30 Dose: Not Given Pilocarpine HCl (Pilostat 1% -) 1 drop OU QID [facility] Last Admin: 06/04/18 14:30 Dose: 1 drop Polyethylene Glycol (Miralax (For Bowel Prep) -) 17 gm PO DAILY [facility] Last Admin: 06/04/18 10:31 Dose: Not Given Ranitidine HCl (Zantac Oral Solution -) 150 mg GT BID [facility] Last Admin: 06/04/18 10:29 Dose: 150 mg Timolol Maleate (Timoptic 0.25%) 1 drop OD DAILY [facility] Last Admin: 06/04/18 10:31 Dose: 1 applic - Objective Vital Signs: Vital Signs Temperature 98.0 F 06/04/18 15:08 Pulse Rate 75 06/04/18 15:08 Respiratory Rate 18 06/04/18 15:08 Blood Pressure 148/69 06/04/18 15:08 O2 Sat by Pulse Oximetry (%) 97 06/04/18 09:00 Constitutional: Yes: Calm Eyes: Yes: Conjunctiva Clear Cardiovascular: Yes: S1, S2 Respiratory: Yes: On Nasal O2 Gastrointestinal: Yes: Soft, Other (peg) Genitourinary: Yes: Incontinence Musculoskeletal: Yes: Muscle Weakness Edema: No Neurological: Yes: Lethargy, Pre-Existing Deficit Labs: CBC, BMP 06/04/18 06:00 06/04/18 06:00 INR, PTT INR 0.96 (0.82-1.09) 05/30/18 18:50 Problem List - Problems (1) Altered mental status Code(s): R41.82 - ALTERED MENTAL STATUS, UNSPECIFIED Qualifiers: Altered mental status type: unspecified Qualified Code(s): R41.82 - Altered mental status, unspecified (2) CKD (chronic kidney disease) Code(s): N18.9 - CHRONIC KIDNEY DISEASE, UNSPECIFIED (3) Sepsis Code(s): A41.9 - SEPSIS, UNSPECIFIED ORGANISM Assessment/Plan Current Medications Generic Name Dose Route Start Last Admin Trade Name Freq PRN Reason Stop Dose Admin Albuterol/Ipratropium 1 amp 05/31/18 20:00 06/04/18 14:40 Duoneb - NEB 1 amp RTID [facility] Administration Amino Acids 30 ml 06/01/18 08:00 06/04/18 10:29 Prosource No Carb Liquid Pkt GT 30 ml BID@0800,1730 [facility] Administration Aspirin 81 mg 06/01/18 10:00 06/04/18 10:29 Ecotrin - NR 81 mg DAILY [facility] Administration Bacitracin 1 applic 06/01/18 10:00 06/04/18 10:29 Bacitracin - TP 1 applic DAILY [facility] Administration Brimonidine Tartrate 1 drop 05/31/18 22:00 06/04/18 14:29 Alphagan P 0.1% - OU 1 drop TID [facility] Administration Calcium Carbonate/Cholecalciferol 1 tab 06/01/18 10:00 06/04/18 10:29 Os-Isacc 500+D - GT 1 tab DAILY [facility] Administration Chlorhexidine Gluconate 1 applic 05/31/18 22:00 06/03/18 21:45 Hibiclens For Decolonization - TP Not Given HS [facility] Citalopram Hydrobromide 10 mg 06/01/18 10:00 06/04/18 10:29 Celexa - GT 10 mg DAILY [facility] Administration Collagenase 1 applic 06/01/18 10:00 06/04/18 10:31 Santyl - TP 1 applic DAILY [facility] Administration Protocol Cyanocobalamin 1,000 mcg 06/01/18 10:00 06/04/18 10:31 Vitamin B12 - GT 1,000 mcg DAILY [facility] Administration Docusate Sodium 300 mg 06/01/18 10:00 06/04/18 10:30 Colace Liquid - GT Not Given DAILY [facility] Dorzolamide HCl 1 drop 05/31/18 22:00 06/04/18 14:31 Trusopt 2% OU 1 drop TID [facility] Administration Ferrous Sulfate 450 mg 06/01/18 10:00 06/04/18 10:28 Feosol GT 450 mg DAILY [facility] Administration Heparin Sodium (Porcine) 5,000 unit 05/31/18 22:00 06/04/18 10:30 Heparin - SQ 5,000 unit BID [facility] Administration Ertapenem 0.5 gm/ Sodium 50 mls @ 100 mls/hr 06/01/18 10:00 06/04/18 10:30 Chloride IVPB 100 mls/hr DAILY [facility] Administration Protocol Sodium Chloride 1,000 mls @ 42 mls/hr 06/03/18 14:00 06/04/18 14:28 1/2 Normal Saline IV Not Given ASDIR [facility] Insulin Aspart 1 vial 06/04/18 16:30 06/04/18 12:57 Novolog Vial Sliding Scale - SQ 6 units ACHS [facility] Administration Protocol Insulin Detemir 10 units 06/05/18 07:00 Levemir Vial SQ AM [facility] Latanoprost 1 drop 05/31/18 22:00 06/03/18 22:29 Xalatan 0.005% Eye Drops - OU 1 drop HS [facility] Administration Multivitamins/Minerals 1 each 06/04/18 11:45 06/04/18 14:28 Theragran-M PO 1 each DAILY [facility] Administration Mupirocin 1 applic 05/31/18 22:00 06/04/18 10:30 Bactroban Ointment (For Decolonization) - NS 06/05/18 09:59 Not Given BID [facility] Pilocarpine HCl 1 drop 05/31/18 22:00 06/04/18 14:30 Pilostat 1% - OU 1 drop QID [facility] Administration Polyethylene Glycol 17 gm 06/01/18 10:00 06/04/18 10:31 Miralax (For Bowel Prep) - PO Not Given DAILY [facility] Ranitidine HCl 150 mg 05/31/18 22:00 06/04/18 10:29 Zantac Oral Solution - GT 150 mg BID [facility] Administration Timolol Maleate 1 drop 06/01/18 10:00 06/04/18 10:31 Timoptic 0.25% OD 1 applic DAILY [facility] Administration Impression 1. CKD 2. anemia 3. change in mental status 4. sepsis 5. DM 6. Parkinson's disease 7. Depression 8. hypernatremia Plan - d/c fluids - start free water 250 cc q 6 hrs - repeat labs in am - free water deficit about 1.1 liters - renal function is stabilizing - abx per ID - monitor roxie Brooks
[2018-06-04] MEDS: CHLORHEXIDINE GLUCONATE 4% CLEANSER FOR DECOLONIZATION TP SCH (22:25)
[2018-06-04] MEDS: LATANOPROST 0.005% OPHTH SOLN 2.5ML BOTTLE OU SCH (22:27)
[2018-06-05] MEDS: INSULIN (LEVEMIR) 100 UNITS/ML UNITS SQ SCH (06:02)
[2018-06-05] MEDS: INSULIN SLIDING SCALE (NOVOLOG) 1 VIAL SQ SCH ×4 (06:02→22:51)
[2018-06-05] MEDS: BRIMONIDINE TARTRATE 0.1% OPHTHALMIC 5 ML BOTTLE OU SCH ×3 (06:05→22:04)
[2018-06-05] MEDS: DORZOLAMIDE 2% HCL OPHTHALMIC SOLUTION 10 ML BOTTLE OU SCH ×3 (06:05→22:05)
[2018-06-05] MEDS: ALBUTEROL SO4 2.5/IPRATROPIUM 0.5 INH SOL 3 ML VIAL.NEB. NEB SCH ×2 (07:45→14:11)
--- NOTE | 2018-06-05 08:11 | CON.GU ---
Consult Consult Specialty:: urology Reason for Consultation:: acute urinary retention - History of Present Illness Chief Complaint: urinary retention History of Present Illness: Patient with history of sepsis/pneumonia who is a longterm patient and unable to ambulate. Patient is a poor historian. The patient appears comfortable. Chart reviewed and nursing staff consulted. - History Source History Provided By: Medical Record, Caregiver Limitations to Obtaining History: Clinical Condition - Past Medical History [employer]ING [employer]: Yes: Dementia, Parkinson's Cardio/Vascular: Yes: Hyperlipdemia Renal/: Yes: Renal Failure (chronic stage 4 ), Renal Inusuff Psych: Yes: Depression Endocrine: Yes: Diabetes Mellitus Additional Medical History: Glaucoma - Alcohol/Substance Use Hx Alcohol Use: No (unknown) - Smoking History Smoking history: Unknown if ever smoked Have you smoked in the past 12 months: No Home Medications - Allergies Allergies/Adverse Reactions: Allergies Allergy/AdvReac Type Severity Reaction Status Date / Time No Known Allergies Allergy Verified 11/28/17 11:40 - Home Medications Home Medications: Ambulatory Orders Aspirin [Aspirin EC] 81 mg PO DAILY 11/28/17 Brimonidine Tartrate [Alphagan P 0.1% -] 1 drop OU TID 11/28/17 Calcium Carbonate/Vitamin D3 [Calcium 500-Vit D3 200 Caplet] 1 each PO DAILY Citalopram Hydrobromide [Celexa -] 10 mg PO DAILY 11/28/17 Cyanocobalamin (Vitamin B-12) [Vitamin B-12] 1,000 mcg PO DAILY 11/28/17 Docusate Sodium 300 mg PO HS 11/28/17 Dorzolamide HCl [Trusopt 2% -] 1 drop OU TID 11/28/17 Latanoprost 0.005% Eye Drops [Xalatan 0.005% Eye Drops -] 1 drop OU HS 11/28/17 Pilocarpine 1% [Pilostat 1% -] 1 drop OU QID 11/28/17 Amlodipine Besylate [Norvasc -] 2.5 mg PO DAILY tablet 12/13/17 Insulin Sliding Scale [Novolog Vial Sliding Scale -] 1 vial SQ HS units Ferrous Sulfate 7.5 ml PO DAILY 05/30/18 Omeprazole Pediatric Solution [Omeprazole Pediatric Oral Solution] 20 mg GT HS 05/30/18 Polyethylene Glycol 3350 [Glycolax] 17 gm PO DAILY 05/30/18 Timolol 0.25% [Timoptic 0.25%] 5 ml OD DAILY 05/30/18 Physical Exam- Vital Signs: Vital Signs Temperature 98 F 06/05/18 06:00 Pulse Rate 83 06/05/18 06:00 Respiratory Rate 20 06/05/18 06:00 Blood Pressure 144/81 06/05/18 06:00 O2 Sat by Pulse Oximetry (%) 95 06/04/18 20:04 Constitutional: Yes: No Distress, [place], Cachectic Eyes: Yes: WNL HENT: Yes: Atraumatic, Normocephalic Neck: Yes: Supple, Trachea Midline Cardiovascular: Yes: Regular Rate and Rhythm Respiratory: Yes: Regular Gastrointestinal: Yes: Soft (peg in palace) Renal/: Yes: WNL, Manley Present Kidneys: Yes: WNL Pelvis: Yes: Bladder Non Palpable Labs: CBC, BMP 06/04/18 06:00 Assessment/Plan imp urinary retention sepsis/pneumonia plan Patient is not ambulating and most likely has a chronic high post void volume. Patient may have a trial of voiding at the longterm. If the patient's renal function deteriorates while patient is well hydrated and a significant residual volume is present then manley should be replaced and [facility]p maintenance with a suprapubic tube may be considered
[2018-06-05] MEDS: AMINO ACIDS/PROTEIN HYDROLYS 30 ML LIQUID.PKT GT SCH ×2 (08:28→17:25)
[2018-06-05 08:33] LABS: ANION GAP 10 (8-16); BLOOD UREA NITROGEN 52 mg/dL (7-18); CHLORIDE 113 mmol/L (98-107); CO2 20 mmol/L (21-32); CREATININE 1.8 mg/dL (0.55-1.02); GLUCOSE,RANDOM 142 mg/dL (74-106); SODIUM 143 mmol/L (136-145)
[2018-06-05] MEDS: HEPARIN NA (PORCINE) 5,000 UNITS/ML 1ML VIAL SQ SCH ×2 (10:45→22:03)
[2018-06-05] MEDS: MULTIVITAMINS THER W-MINERALS COMBO TABLET (FP) PO SCH (10:45)
[2018-06-05] MEDS: CITALOPRAM HYDROBROMIDE 10 MG TABLET (FP) GT SCH (10:46)
[2018-06-05] MEDS: CALCIUM 500MG/VIT-D 200 UNITS COMBO TABLET (FP) GT SCH (10:46)
[2018-06-05] MEDS: CYANOCOBALAMIN 1,000 MCG TABLET (FP) GT SCH (10:46)
[2018-06-05] MEDS: ASPIRIN COATED 81 MG TABLET.EC NR SCH (10:46)
[2018-06-05] MEDS: FERROUS SO4 300 MG/5 ML ORAL SOLN UNIT DOSE CUPS GT SCH (10:47)
[2018-06-05] MEDS: RANITIDINE HCL 150 MG/10 ML UNIT-DOSE GT SCH ×2 (10:47→22:03)
[2018-06-05] MEDS: ERTAPENEM SODIUM 0.5 GM in SODIUM CHLORIDE 50 ML IVPB SCH (10:48)
[2018-06-05] MEDS: COLLAGENASE CLOSTRIDIUM HIST. 30 GRAMS TUBE TP SCH (10:48)
[2018-06-05] MEDS: BACITRACIN 15 GM TUBE TOPICAL OINTMENT TP SCH (10:51)
[2018-06-05] MEDS: POLYETHYLENE GLYCOL 3350 255 GM BTL PO SCH (10:51)
[2018-06-05] MEDS: DOCUSATE NA 100 MG/10 ML UNIT-DOSE CUPS GT SCH (10:52)
[2018-06-05] MEDS: PILOCARPINE 1% OPHTHALMIC SOLUTION 15 ML BOTTLE OU SCH ×4 (10:52→22:05)
[2018-06-05] MEDS: TIMOLOL 0.25% OPHTHALMIC SOL 5 ML BOTTLE OD SCH (10:53)
--- NOTE | 2018-06-05 12:51 | PN ---
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, Physician History of Present Illness: Pt seen and examined at bedside. She appears comfortable. She is not verbal. - Current Medication List Current Medications: Active Medications Albuterol/Ipratropium (Duoneb -) 1 amp NEB RTID [facility] Last Admin: 06/05/18 07:45 Dose: 1 amp Amino Acids (Prosource No Carb Liquid Pkt) 30 ml GT BID@0800,1730 [facility] Last Admin: 06/05/18 08:28 Dose: 30 ml Aspirin (Ecotrin -) 81 mg NR DAILY [facility] Last Admin: 06/05/18 10:46 Dose: 81 mg Bacitracin (Bacitracin -) 1 applic TP DAILY [facility] Last Admin: 06/05/18 10:51 Dose: 1 applic Brimonidine Tartrate (Alphagan P 0.1% -) 1 drop OU TID [facility] Last Admin: 06/05/18 06:05 Dose: 1 drop Calcium Carbonate/Cholecalciferol (Os-Isacc 500+D -) 1 tab GT DAILY [facility] Last Admin: 06/05/18 10:46 Dose: 1 tab Chlorhexidine Gluconate (Hibiclens For Decolonization -) 1 applic TP HS [facility] Last Admin: 06/04/18 22:25 Dose: Not Given Citalopram Hydrobromide (Celexa -) 10 mg GT DAILY [facility] Last Admin: 06/05/18 10:46 Dose: 10 mg Collagenase (Santyl -) 1 applic TP DAILY [facility]; Protocol Last Admin: 06/05/18 10:48 Dose: 1 applic Cyanocobalamin (Vitamin B12 -) 1,000 mcg GT DAILY [facility] Last Admin: 06/05/18 10:46 Dose: 1,000 mcg Docusate Sodium (Colace Liquid -) 300 mg GT DAILY [facility] Last Admin: 06/05/18 10:52 Dose: Not Given Dorzolamide HCl (Trusopt 2%) 1 drop OU TID [facility] Last Admin: 06/05/18 06:05 Dose: 1 drop Ferrous Sulfate (Feosol) 450 mg GT DAILY [facility] Last Admin: 06/05/18 10:47 Dose: 450 mg Heparin Sodium (Porcine) (Heparin -) 5,000 unit SQ BID [facility] Last Admin: 06/05/18 10:45 Dose: 5,000 unit Ertapenem 0.5 gm/ Sodium (Chloride) 50 mls @ 100 mls/hr IVPB DAILY [facility]; Protocol Last Admin: 06/05/18 10:48 Dose: 100 mls/hr Insulin Aspart (Novolog Vial Sliding Scale -) 1 vial SQ ACHS [facility]; Protocol Last Admin: 06/05/18 11:12 Dose: Not Given Insulin Detemir (Levemir Vial) 10 units SQ AM [facility] Last Admin: 06/05/18 06:02 Dose: 10 unit Latanoprost (Xalatan 0.005% Eye Drops -) 1 drop OU HS [facility] Last Admin: 06/04/18 22:27 Dose: 1 drop Multivitamins/Minerals (Theragran-M) 1 each PO DAILY [facility] Last Admin: 06/05/18 10:45 Dose: 1 each Pilocarpine HCl (Pilostat 1% -) 1 drop OU QID [facility] Last Admin: 06/05/18 10:52 Dose: 1 drop Polyethylene Glycol (Miralax (For Bowel Prep) -) 17 gm PO DAILY [facility] Last Admin: 06/05/18 10:51 Dose: Not Given Ranitidine HCl (Zantac Oral Solution -) 150 mg GT BID [facility] Last Admin: 06/05/18 10:47 Dose: 150 mg Timolol Maleate (Timoptic 0.25%) 1 drop OD DAILY [facility] Last Admin: 06/05/18 10:53 Dose: 1 applic - Objective Vital Signs: Vital Signs Temperature 97.4 F L 06/05/18 10:00 Pulse Rate 83 06/05/18 10:00 Respiratory Rate 20 06/05/18 10:00 Blood Pressure 117/65 06/05/18 10:00 O2 Sat by Pulse Oximetry (%) 95 06/04/18 20:04 Constitutional: Yes: Calm Eyes: Yes: Conjunctiva Clear HENT: Yes: Atraumatic Cardiovascular: Yes: S1, S2 Respiratory: Yes: CTA Bilaterally Gastrointestinal: Yes: Other (peg) Genitourinary: Yes: Manley Present Musculoskeletal: Yes: Muscle Weakness Edema: No Neurological: Yes: Lethargy, Pre-Existing Deficit Labs: CBC, BMP 06/04/18 06:00 06/05/18 06:10 INR, PTT INR 0.96 (0.82-1.09) 05/30/18 18:50 Problem List - Problems (1) Altered mental status Code(s): R41.82 - ALTERED MENTAL STATUS, UNSPECIFIED Qualifiers: Altered mental status type: unspecified Qualified Code(s): R41.82 - Altered mental status, unspecified (2) CKD (chronic kidney disease) Code(s): N18.9 - CHRONIC KIDNEY DISEASE, UNSPECIFIED (3) Sepsis Code(s): A41.9 - SEPSIS, UNSPECIFIED ORGANISM Assessment/Plan Current Medications Generic Name Dose Route Start Last Admin Trade Name Freq PRN Reason Stop Dose Admin Albuterol/Ipratropium 1 amp 05/31/18 20:00 06/05/18 07:45 Duoneb - NEB 1 amp RTID [facility] Administration Amino Acids 30 ml 06/01/18 08:00 06/05/18 08:28 Prosource No Carb Liquid Pkt GT 30 ml BID@0800,1730 [facility] Administration Aspirin 81 mg 06/01/18 10:00 06/05/18 10:46 Ecotrin - NR 81 mg DAILY [facility] Administration Bacitracin 1 applic 06/01/18 10:00 06/05/18 10:51 Bacitracin - TP 1 applic DAILY [facility] Administration Brimonidine Tartrate 1 drop 05/31/18 22:00 06/05/18 06:05 Alphagan P 0.1% - OU 1 drop TID [facility] Administration Calcium Carbonate/Cholecalciferol 1 tab 06/01/18 10:00 06/05/18 10:46 Os-Isacc 500+D - GT 1 tab DAILY [facility] Administration Chlorhexidine Gluconate 1 applic 05/31/18 22:00 06/04/18 22:25 Hibiclens For Decolonization - TP Not Given HS [facility] Citalopram Hydrobromide 10 mg 06/01/18 10:00 06/05/18 10:46 Celexa - GT 10 mg DAILY [facility] Administration Collagenase 1 applic 06/01/18 10:00 06/05/18 10:48 Santyl - TP 1 applic DAILY [facility] Administration Protocol Cyanocobalamin 1,000 mcg 06/01/18 10:00 06/05/18 10:46 Vitamin B12 - GT 1,000 mcg DAILY [facility] Administration Docusate Sodium 300 mg 06/01/18 10:00 06/05/18 10:52 Colace Liquid - GT Not Given DAILY [facility] Dorzolamide HCl 1 drop 05/31/18 22:00 06/05/18 06:05 Trusopt 2% OU 1 drop TID [facility] Administration Ferrous Sulfate 450 mg 06/01/18 10:00 06/05/18 10:47 Feosol GT 450 mg DAILY [facility] Administration Heparin Sodium (Porcine) 5,000 unit 05/31/18 22:00 06/05/18 10:45 Heparin - SQ 5,000 unit BID [facility] Administration Ertapenem 0.5 gm/ Sodium 50 mls @ 100 mls/hr 06/01/18 10:00 06/05/18 10:48 Chloride IVPB 100 mls/hr DAILY [facility] Administration Protocol Insulin Aspart 1 vial 06/04/18 16:30 06/05/18 11:12 Novolog Vial Sliding Scale - SQ Not Given ACHS [facility] Protocol Insulin Detemir 10 units 06/05/18 07:00 06/05/18 06:02 Levemir Vial SQ 10 unit AM [facility] Administration Latanoprost 1 drop 05/31/18 22:00 06/04/18 22:27 Xalatan 0.005% Eye Drops - OU 1 drop HS [facility] Administration Multivitamins/Minerals 1 each 06/04/18 11:45 06/05/18 10:45 Theragran-M PO 1 each DAILY [facility] Administration Pilocarpine HCl 1 drop 05/31/18 22:00 06/05/18 10:52 Pilostat 1% - OU 1 drop QID [facility] Administration Polyethylene Glycol 17 gm 06/01/18 10:00 06/05/18 10:51 Miralax (For Bowel Prep) - PO Not Given DAILY [facility] Ranitidine HCl 150 mg 05/31/18 22:00 06/05/18 10:47 Zantac Oral Solution - GT 150 mg BID [facility] Administration Timolol Maleate 1 drop 06/01/18 10:00 06/05/18 10:53 Timoptic 0.25% OD 1 applic DAILY [facility] Administration Impression 1. CKD 2. anemia 3. change in mental status 4. sepsis 5. DM 6. Parkinson's disease 7. Depression 8. hypernatremia Plan - urology input appreciated - manley in place - sodium is improved - can decrease frequency of free water - renal function is stabilizing - abx per ID Dr Brooks
--- NOTE | 2018-06-05 13:46 | PN ---
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, Physician Chief Complaint: Hypoxia, hypotension History of Present Illness: NAD, non verbal Has manley catheter, PEG seen by Nephrology, urology Blood culture positive for gram positive cocci DNI - Current Medication List Current Medications: Active Medications Albuterol/Ipratropium (Duoneb -) 1 amp NEB RTID [facility] Last Admin: 06/05/18 07:45 Dose: 1 amp Amino Acids (Prosource No Carb Liquid Pkt) 30 ml GT BID@0800,1730 [facility] Last Admin: 06/05/18 08:28 Dose: 30 ml Aspirin (Ecotrin -) 81 mg NR DAILY [facility] Last Admin: 06/05/18 10:46 Dose: 81 mg Bacitracin (Bacitracin -) 1 applic TP DAILY [facility] Last Admin: 06/05/18 10:51 Dose: 1 applic Brimonidine Tartrate (Alphagan P 0.1% -) 1 drop OU TID [facility] Last Admin: 06/05/18 06:05 Dose: 1 drop Calcium Carbonate/Cholecalciferol (Os-Isacc 500+D -) 1 tab GT DAILY [facility] Last Admin: 06/05/18 10:46 Dose: 1 tab Chlorhexidine Gluconate (Hibiclens For Decolonization -) 1 applic TP HS [facility] Last Admin: 06/04/18 22:25 Dose: Not Given Citalopram Hydrobromide (Celexa -) 10 mg GT DAILY [facility] Last Admin: 06/05/18 10:46 Dose: 10 mg Collagenase (Santyl -) 1 applic TP DAILY [facility]; Protocol Last Admin: 06/05/18 10:48 Dose: 1 applic Cyanocobalamin (Vitamin B12 -) 1,000 mcg GT DAILY [facility] Last Admin: 06/05/18 10:46 Dose: 1,000 mcg Docusate Sodium (Colace Liquid -) 300 mg GT DAILY [facility] Last Admin: 06/05/18 10:52 Dose: Not Given Dorzolamide HCl (Trusopt 2%) 1 drop OU TID [facility] Last Admin: 06/05/18 06:05 Dose: 1 drop Ferrous Sulfate (Feosol) 450 mg GT DAILY [facility] Last Admin: 06/05/18 10:47 Dose: 450 mg Heparin Sodium (Porcine) (Heparin -) 5,000 unit SQ BID [facility] Last Admin: 06/05/18 10:45 Dose: 5,000 unit Ertapenem 0.5 gm/ Sodium (Chloride) 50 mls @ 100 mls/hr IVPB DAILY [facility]; Protocol Last Admin: 06/05/18 10:48 Dose: 100 mls/hr Insulin Aspart (Novolog Vial Sliding Scale -) 1 vial SQ ACHS [facility]; Protocol Last Admin: 06/05/18 11:12 Dose: Not Given Insulin Detemir (Levemir Vial) 10 units SQ AM [facility] Last Admin: 06/05/18 06:02 Dose: 10 unit Latanoprost (Xalatan 0.005% Eye Drops -) 1 drop OU HS [facility] Last Admin: 06/04/18 22:27 Dose: 1 drop Multivitamins/Minerals (Theragran-M) 1 each PO DAILY [facility] Last Admin: 06/05/18 10:45 Dose: 1 each Pilocarpine HCl (Pilostat 1% -) 1 drop OU QID [facility] Last Admin: 06/05/18 10:52 Dose: 1 drop Polyethylene Glycol (Miralax (For Bowel Prep) -) 17 gm PO DAILY [facility] Last Admin: 06/05/18 10:51 Dose: Not Given Ranitidine HCl (Zantac Oral Solution -) 150 mg GT BID [facility] Last Admin: 06/05/18 10:47 Dose: 150 mg Timolol Maleate (Timoptic 0.25%) 1 drop OD DAILY [facility] Last Admin: 06/05/18 10:53 Dose: 1 applic - Objective Vital Signs: Vital Signs Temperature 97.4 F L 06/05/18 10:00 Pulse Rate 83 06/05/18 10:00 Respiratory Rate 20 06/05/18 10:00 Blood Pressure 117/65 06/05/18 10:00 O2 Sat by Pulse Oximetry (%) 95 06/04/18 20:04 Constitutional: Yes: No Distress, Calm, Cachectic Cardiovascular: Yes: Regular Rate and Rhythm Respiratory: Yes: Regular Gastrointestinal: Yes: Normal Bowel Sounds, Soft Neurological: Yes: Pre-Existing Deficit Labs: CBC, BMP 06/04/18 06:00 06/05/18 06:10 INR, PTT INR 0.96 (0.82-1.09) 05/30/18 18:50 Problem List - Problems (1) CKD (chronic kidney disease) Assessment/Plan: -Nephrology on board -Cr improving -Monitor trend Code(s): N18.9 - CHRONIC KIDNEY DISEASE, UNSPECIFIED (2) ESBL (extended spectrum beta-lactamase) producing bacteria infection Assessment/Plan: -ID on board -On IV ertepenum - Microbiology 06/03/18 01:55 Blood - Peripheral Venous Blood Culture - Preliminary Pending Organism 06/03/18 03:10 Urine - Urine - Catheterized Urine Culture - Preliminary Pending Organism#2 Yeast Like Organism 06/03/18 02:15 Blood - Peripheral Venous Blood Culture - Preliminary NO GROWTH OBTAINED AFTER 48 HOURS, INCUBATION TO CONTINUE FOR 3 DAYS. 05/30/18 18:50 Blood - Peripheral Venous Blood Culture - Final NO GROWTH AFTER 5 DAYS INCUBATION 05/30/18 18:50 Blood - Peripheral Venous Blood Culture - Final NO GROWTH AFTER 5 DAYS INCUBATION 05/30/18 21:18 Foot - Left Heel Gram Stain - Final 05/30/18 21:18 Foot - Left Heel Wound Culture - Final Klebsiella Pneumoniae Proteus Mirabilis Staphylococcus Aureus Enterococcus Faecalis 05/30/18 19:20 Urine - Urine - Catheterized Urine Culture - Final NO GROWTH OBTAINED Code(s): A49.9 - BACTERIAL INFECTION, UNSPECIFIED; Z16.12 - EXTENDED SPECTRUM BETA LACTAMASE (ESBL) RESISTANCE (3) Sepsis Assessment/Plan: -resolved -ID on board -IV abx Code(s): A41.9 - SEPSIS, UNSPECIFIED ORGANISM (4) Urinary retention Assessment/Plan: -Manley cath -Urology consult appreciated -Voiding trial a [place], if fails, may need [facility] manley cath Code(s): R33.9 - RETENTION OF URINE, UNSPECIFIED (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 Assessment/Plan: -A1C 7.9 -BGM AC HS -RD consult -Insulin-novolog and levemir Code(s): E11.22 - TYPE 2 DIABETES MELLITUS W DIABETIC CHRONIC KIDNEY DISEASE (6) UTI (urinary tract infection) Assessment/Plan: -IV abx -ID consult -Manley cath -Urology consult Code(s): N39.0 - URINARY TRACT INFECTION, SITE NOT SPECIFIED (7) Anemia Assessment/Plan: -Chronic disease vs CKD -Iron profile okay -check Thyroid profile and B 12 -check stool OB Code(s): D64.9 - ANEMIA, UNSPECIFIED Qualifiers: Anemia type: unspecified type Qualified Code(s): D64.9 - Anemia, unspecified (8) Hypernatremia Assessment/Plan: -resolved -nephrology on board -monitor trend Code(s): E87.0 - HYPEROSMOLALITY AND HYPERNATREMIA Assessment/Plan see problem list
[2018-06-05] MEDS: CHLORHEXIDINE GLUCONATE 4% CLEANSER FOR DECOLONIZATION TP SCH (22:03)
[2018-06-05] MEDS: LATANOPROST 0.005% OPHTH SOLN 2.5ML BOTTLE OU SCH (22:05)
[2018-06-06] MEDS: INSULIN SLIDING SCALE (NOVOLOG) 1 VIAL SQ SCH ×3 (06:46→16:49)
[2018-06-06] MEDS: BRIMONIDINE TARTRATE 0.1% OPHTHALMIC 5 ML BOTTLE OU SCH ×2 (06:47→14:25)
[2018-06-06] MEDS: DORZOLAMIDE 2% HCL OPHTHALMIC SOLUTION 10 ML BOTTLE OU SCH ×2 (06:47→15:21)
[2018-06-06] MEDS ORDERED: INSULIN (LEVEMIR) 100 UNITS/ML UNITS SQ ONE (06:50)
[2018-06-06] MEDS: INSULIN (LEVEMIR) 100 UNITS/ML UNITS SQ SCH (06:51)
[2018-06-06 08:10] LABS: BASO % 0.4 % (0-2.0); EOS % 3.2 % (0-4.5); HEMATOCRIT 26.7 % (32.4-45.2); HEMOGLOBIN 9.1 GM/dL (10.7-15.3); LYMPH % 9.3 % (8-40); MCH 32.2 pg (25.7-33.7); MCHC 34.1 g/dl (32.0-36.0); MEAN CELL VOLUME 94.6 fl (80-96); MEAN PLT VOLUME 7.4 fl (7.5-11.1); MONO % 4.3 % (3.8-10.2); NEUT % 82.8 % (42.8-82.8); PLATELET COUNT 175 K/MM3 (134-434); RBC 2.82 M/mm3 (3.60-5.2); RDW 13.1 % (11.6-15.6); WHITE BLOOD COUNT 8.4 K/mm3 (4.0-10.0)
--- NOTE | 2018-06-06 08:28 | PN ---
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, Physician Chief Complaint: Hypoxia, hypotension History of Present Illness: NAD, non verbal Has manley catheter, PEG seen by Nephrology, urology Blood culture positive for gram positive cocci DNI - Current Medication List Current Medications: Active Medications Amino Acids (Prosource No Carb Liquid Pkt) 30 ml GT BID@0800,1730 [facility] Last Admin: 06/05/18 17:25 Dose: 30 ml Aspirin (Ecotrin -) 81 mg NR DAILY [facility] Last Admin: 06/05/18 10:46 Dose: 81 mg Bacitracin (Bacitracin -) 1 applic TP DAILY [facility] Last Admin: 06/05/18 10:51 Dose: 1 applic Brimonidine Tartrate (Alphagan P 0.1% -) 1 drop OU TID [facility] Last Admin: 06/06/18 06:47 Dose: 1 drop Calcium Carbonate/Cholecalciferol (Os-Isacc 500+D -) 1 tab GT DAILY [facility] Last Admin: 06/05/18 10:46 Dose: 1 tab Chlorhexidine Gluconate (Hibiclens For Decolonization -) 1 applic TP HS [facility] Last Admin: 06/05/18 22:03 Dose: Not Given Citalopram Hydrobromide (Celexa -) 10 mg GT DAILY [facility] Last Admin: 06/05/18 10:46 Dose: 10 mg Collagenase (Santyl -) 1 applic TP DAILY [facility]; Protocol Last Admin: 06/05/18 10:48 Dose: 1 applic Cyanocobalamin (Vitamin B12 -) 1,000 mcg GT DAILY [facility] Last Admin: 06/05/18 10:46 Dose: 1,000 mcg Docusate Sodium (Colace Liquid -) 300 mg GT DAILY [facility] Last Admin: 06/05/18 10:52 Dose: Not Given Dorzolamide HCl (Trusopt 2%) 1 drop OU TID [facility] Last Admin: 06/06/18 06:47 Dose: 1 drop Ferrous Sulfate (Feosol) 450 mg GT DAILY [facility] Last Admin: 06/05/18 10:47 Dose: 450 mg Heparin Sodium (Porcine) (Heparin -) 5,000 unit SQ BID [facility] Last Admin: 06/05/18 22:03 Dose: 5,000 unit Ertapenem 0.5 gm/ Sodium (Chloride) 50 mls @ 100 mls/hr IVPB DAILY [facility]; Protocol Last Admin: 06/05/18 10:48 Dose: 100 mls/hr Insulin Aspart (Novolog Vial Sliding Scale -) 1 vial SQ ACHS [facility]; Protocol Last Admin: 06/06/18 06:46 Dose: Not Given Insulin Detemir (Levemir Vial) 10 units SQ AM [facility] Last Admin: 06/06/18 06:51 Dose: 10 unit Latanoprost (Xalatan 0.005% Eye Drops -) 1 drop OU HS [facility] Last Admin: 06/05/18 22:05 Dose: 1 drop Multivitamins/Minerals (Theragran-M) 1 each PO DAILY [facility] Last Admin: 06/05/18 10:45 Dose: 1 each Pilocarpine HCl (Pilostat 1% -) 1 drop OU QID [facility] Last Admin: 06/05/18 22:05 Dose: 1 drop Polyethylene Glycol (Miralax (For Bowel Prep) -) 17 gm PO DAILY [facility] Last Admin: 06/05/18 10:51 Dose: Not Given Ranitidine HCl (Zantac Oral Solution -) 150 mg GT BID [facility] Last Admin: 06/05/18 22:03 Dose: 150 mg Timolol Maleate (Timoptic 0.25%) 1 drop OD DAILY [facility] Last Admin: 06/05/18 10:53 Dose: 1 applic - Objective Vital Signs: Vital Signs Temperature 98.6 F 06/06/18 06:18 Pulse Rate 78 06/06/18 06:18 Respiratory Rate 20 06/06/18 06:18 Blood Pressure 145/71 06/06/18 06:18 O2 Sat by Pulse Oximetry (%) 98 06/05/18 21:00 Constitutional: Yes: No Distress, Calm, Cachectic Cardiovascular: Yes: Regular Rate and Rhythm Gastrointestinal: Yes: Normal Bowel Sounds Neurological: Yes: Pre-Existing Deficit Labs: CBC, BMP 06/06/18 06:15 INR, PTT INR 0.96 (0.82-1.09) 05/30/18 18:50 Problem List - Problems (1) CKD (chronic kidney disease) Assessment/Plan: -Nephrology on board -Cr improving -Monitor trend -repeat CMP in 1 week Code(s): N18.9 - CHRONIC KIDNEY DISEASE, UNSPECIFIED (2) ESBL (extended spectrum beta-lactamase) producing bacteria infection Assessment/Plan: -ID on board -On IV ertepenum - Microbiology 06/03/18 01:55 Blood - Peripheral Venous Blood Culture - Preliminary Pending Organism 06/03/18 03:10 Urine - Urine - Catheterized Urine Culture - Preliminary Pending Organism#2 Yeast Like Organism 06/03/18 02:15 Blood - Peripheral Venous Blood Culture - Preliminary NO GROWTH OBTAINED AFTER 48 HOURS, INCUBATION TO CONTINUE FOR 3 DAYS. 05/30/18 18:50 Blood - Peripheral Venous Blood Culture - Final NO GROWTH AFTER 5 DAYS INCUBATION 05/30/18 18:50 Blood - Peripheral Venous Blood Culture - Final NO GROWTH AFTER 5 DAYS INCUBATION 05/30/18 21:18 Foot - Left Heel Gram Stain - Final 05/30/18 21:18 Foot - Left Heel Wound Culture - Final Klebsiella Pneumoniae Proteus Mirabilis Staphylococcus Aureus Enterococcus Faecalis 05/30/18 19:20 Urine - Urine - Catheterized Urine Culture - Final NO GROWTH OBTAINED D/C IV abx, change to ceftin 250 mg po BID x 3 days Code(s): A49.9 - BACTERIAL INFECTION, UNSPECIFIED; Z16.12 - EXTENDED SPECTRUM BETA LACTAMASE (ESBL) RESISTANCE (3) Sepsis Assessment/Plan: -resolved -ID on board -d/c IV abx -ceftin 250 mg po BID x 3 days Code(s): A41.9 - SEPSIS, UNSPECIFIED ORGANISM (4) Urinary retention Assessment/Plan: -Manley cath -Urology consult appreciated -Voiding trial a [place], if fails, may need exterminator termite manley cath Code(s): R33.9 - RETENTION OF URINE, UNSPECIFIED (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 Assessment/Plan: -A1C 7.9 -BGM AC HS -RD consult -Insulin-novolog and levemir Code(s): E11.22 - TYPE 2 DIABETES MELLITUS W DIABETIC CHRONIC KIDNEY DISEASE (6) UTI (urinary tract infection) Assessment/Plan: -IV abx -ID consult -will go to [place] with Manley cath -Urology consult appreciated Code(s): N39.0 - URINARY TRACT INFECTION, SITE NOT SPECIFIED (7) Anemia Assessment/Plan: -Chronic disease vs CKD -Iron profile okay -check Thyroid profile and B 12 -check stool OB Code(s): D64.9 - ANEMIA, UNSPECIFIED Qualifiers: Anemia type: unspecified type Qualified Code(s): D64.9 - Anemia, unspecified (8) Hypernatremia Assessment/Plan: -resolved -nephrology on board -monitor trend Code(s): E87.0 - HYPEROSMOLALITY AND HYPERNATREMIA (9) Severe protein-calorie malnutrition Assessment/Plan: -Seen by RD -Feeds adjusted -Multivitamin -Zinc -Vit C -Prosource Code(s): E43 - UNSPECIFIED SEVERE PROTEIN-CALORIE MALNUTRITION Assessment/Plan see problem list
[2018-06-06 08:36] LABS: CHLORIDE 110 mmol/L (98-107); POTASSIUM 4.6 mmol/L (3.5-5.1); SODIUM 140 mmol/L (136-145)
[2018-06-06] MEDS: AMINO ACIDS/PROTEIN HYDROLYS 30 ML LIQUID.PKT GT SCH ×2 (08:38→16:49)
[2018-06-06 08:47] LABS: ALBUMIN 1.9 g/dl (3.4-5.0); ALK PHOS 88 U/L (45-117); ANION GAP 9 (8-16); BILIRUBIN,TOTAL 0.2 mg/dL (0.2-1.0); BLOOD UREA NITROGEN 55 mg/dL (7-18); CALCIUM 8.9 mg/dL (8.5-10.1); CO2 21 mmol/L (21-32); CREATININE 1.8 mg/dL (0.55-1.02); GLUCOSE,RANDOM 137 mg/dL (74-106); SGOT/AST 11 U/L (15-37); SGPT/ALT 12 U/L (12-78); TOT PROT 5.8 g/dl (6.4-8.2)
[2018-06-06] MEDS ORDERED: ZINC SULFATE 220 MG CAPSULE (FP) PO SCH (10:00)
[2018-06-06] MEDS ORDERED: ASCORBIC ACID 500 MG TABLET (FP) PO SCH (10:00)
[2018-06-06] MEDS: PILOCARPINE 1% OPHTHALMIC SOLUTION 15 ML BOTTLE OU SCH ×3 (10:23→17:10)
[2018-06-06] MEDS: TIMOLOL 0.25% OPHTHALMIC SOL 5 ML BOTTLE OD SCH (10:24)
[2018-06-06] MEDS ORDERED: PT OWN MED DRAWER 7, Y5N ONE (10:28)
[2018-06-06] MEDS: HEPARIN NA (PORCINE) 5,000 UNITS/ML 1ML VIAL SQ SCH (10:36)
[2018-06-06] MEDS: MULTIVITAMINS THER W-MINERALS COMBO TABLET (FP) PO SCH (10:37)
[2018-06-06] MEDS: ASPIRIN COATED 81 MG TABLET.EC NR SCH (10:37)
[2018-06-06] MEDS: CYANOCOBALAMIN 1,000 MCG TABLET (FP) GT SCH (10:37)
[2018-06-06] MEDS: CALCIUM 500MG/VIT-D 200 UNITS COMBO TABLET (FP) GT SCH (10:37)
[2018-06-06] MEDS: CITALOPRAM HYDROBROMIDE 10 MG TABLET (FP) GT SCH (10:37)
[2018-06-06] MEDS: FERROUS SO4 300 MG/5 ML ORAL SOLN UNIT DOSE CUPS GT SCH (10:38)
[2018-06-06] MEDS: BACITRACIN 15 GM TUBE TOPICAL OINTMENT TP SCH (10:38)
[2018-06-06] MEDS: DOCUSATE NA 100 MG/10 ML UNIT-DOSE CUPS GT SCH (10:39)
[2018-06-06] MEDS: RANITIDINE HCL 150 MG/10 ML UNIT-DOSE GT SCH (10:40)
[2018-06-06] MEDS: ERTAPENEM SODIUM 0.5 GM in SODIUM CHLORIDE 50 ML IVPB SCH (10:40)
--- NOTE | 2018-06-06 12:08 | DS ---
Physical Examination Vital Signs: Vital Signs Temperature 98.6 F 06/06/18 06:18 Pulse Rate 78 06/06/18 06:18 Respiratory Rate 20 06/06/18 06:18 Blood Pressure 145/71 06/06/18 06:18 O2 Sat by Pulse Oximetry (%) 98 06/05/18 21:00 Findings/Remarks: This is a 67 year old female with a past medical history of anemia, CKD4, IDDM, Parkinson's disease, Dementia, HTN, HLD, CAD who presented to the ED from [facility] with hypoxia and hypotension. Unable to obtain history or ROS from patient due to dementia. Information obtained from [place] paperwork sent over and previous charts. Oxygen saturation in NH 79% and SBP into the 70s. Pt was given 1L NS in ED and placed on NRB. Constitutional: Yes: No Distress, Calm, Cachectic Cardiovascular: Yes: Regular Rate and Rhythm, Murmur (Grade III/) Respiratory: Yes: Regular Gastrointestinal: Yes: Normal Bowel Sounds Musculoskeletal: Yes: WNL Extremities: Yes: WNL Edema: No Wound/Incision: Yes: Dressing Dry and Intact (left heel) Neurological: Yes: Pre-Existing Deficit Labs: CBC, BMP 06/06/18 06:15 06/06/18 06:15 Discharge Summary Reason For Visit: HYPOXIA,ALTERED MENTAL STATUS Current Active Problems Acute CHF (congestive heart failure) (Acute) Altered mental status (Acute) CKD (chronic kidney disease) (Acute) ESBL (extended spectrum beta-lactamase) producing bacteria infection (Acute) Glaucoma (Acute) Parkinson disease (Acute) Pneumonia (Acute) Sepsis (Acute) Severe protein-calorie malnutrition (Acute) Urinary retention (Acute) Hospital Course: Dietary: Dysphagia minced with honey consistency liquids + magic cup BID + Ensure BID, Free water via G tube-250 cc q 8 hrs Voiding trial at [facility], If still retaining urine, would need permanent manley placement Ceftin 250 mg BID x 3 days Condition: Stable - Instructions Referrals: Pradip Montelongo MD [Primary Care Provider] - Disposition: ALF FACILITY - Home Medications Comprehensive Discharge Medication List: Ambulatory Orders Aspirin [Aspirin EC] 81 mg PO DAILY 11/28/17 Brimonidine Tartrate [Alphagan P 0.1% -] 1 drop OU TID 11/28/17 Calcium Carbonate/Vitamin D3 [Calcium 500-Vit D3 200 Caplet] 1 each PO DAILY Citalopram Hydrobromide [Celexa -] 10 mg PO DAILY 11/28/17 Cyanocobalamin (Vitamin B-12) [Vitamin B-12] 1,000 mcg PO DAILY 11/28/17 Docusate Sodium 300 mg PO HS 11/28/17 Dorzolamide HCl [Trusopt 2% -] 1 drop OU TID 11/28/17 Latanoprost 0.005% Eye Drops [Xalatan 0.005% Eye Drops -] 1 drop OU HS 11/28/17 Pilocarpine 1% [Pilostat 1% -] 1 drop OU QID 11/28/17 Amlodipine Besylate [Norvasc -] 2.5 mg PO DAILY tablet 12/13/17 Insulin Sliding Scale [Novolog Vial Sliding Scale -] 1 vial SQ HS units Ferrous Sulfate 7.5 ml PO DAILY 05/30/18 Omeprazole Pediatric Solution [Omeprazole Pediatric Oral Solution] 20 mg GT HS 05/30/18 Polyethylene Glycol 3350 [Glycolax] 17 gm PO DAILY 05/30/18 Timolol 0.25% [Timoptic 0.25%] 5 ml OD DAILY 05/30/18
[2018-06-06] MEDS: COLLAGENASE CLOSTRIDIUM HIST. 30 GRAMS TUBE TP SCH (12:24)
--- NOTE | 2018-06-06 12:48 | PN ---
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, [employer] - Note 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: Selected Entries 06/03/18 06/06/18 06/06/18 14:48 06:18 09:01 Breakfast 75% Lunch 50% Temperature 98.6 F 06/06/18 10:00 Breakfast Lunch Temperature 97.9 F Doing well. Good appetite and tolerance. No further f/u required.
[2018-06-06] MEDS: POLYETHYLENE GLYCOL 3350 255 GM BTL PO SCH (15:24)
[2018-06-06 15:31] VITALS: BP 148/75; PULSE 84; TEMP 97.4
--- NOTE | 2018-06-06 16:36 | PN ---
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, Physician History of Present Illness: Not verbally responsive No acute distress Afebrile Breathing non-labored Urine c/s mixed organism - Current Medication List Current Medications: Active Medications Amino Acids (Prosource No Carb Liquid Pkt) 30 ml GT BID@0800,1730 [facility] Last Admin: 06/06/18 08:38 Dose: 30 ml Ascorbic Acid (Vitamin C -) 500 mg PO BID [facility] Last Admin: 06/06/18 10:36 Dose: 500 mg Aspirin (Ecotrin -) 81 mg NR DAILY [facility] Last Admin: 06/06/18 10:37 Dose: 81 mg Bacitracin (Bacitracin -) 1 applic TP DAILY [facility] Last Admin: 06/06/18 10:38 Dose: 1 applic Brimonidine Tartrate (Alphagan P 0.1% -) 1 drop OU TID [facility] Last Admin: 06/06/18 14:25 Dose: 1 drop Calcium Carbonate/Cholecalciferol (Os-Isacc 500+D -) 1 tab GT DAILY [facility] Last Admin: 06/06/18 10:37 Dose: 1 tab Chlorhexidine Gluconate (Hibiclens For Decolonization -) 1 applic TP HS [facility] Last Admin: 06/05/18 22:03 Dose: Not Given Citalopram Hydrobromide (Celexa -) 10 mg GT DAILY [facility] Last Admin: 06/06/18 10:37 Dose: 10 mg Collagenase (Santyl -) 1 applic TP DAILY [facility]; Protocol Last Admin: 06/06/18 12:24 Dose: 1 applic Cyanocobalamin (Vitamin B12 -) 1,000 mcg GT DAILY [facility] Last Admin: 06/06/18 10:37 Dose: 1,000 mcg Docusate Sodium (Colace Liquid -) 300 mg GT DAILY [facility] Last Admin: 06/06/18 10:39 Dose: 300 mg Dorzolamide HCl (Trusopt 2%) 1 drop OU TID [facility] Last Admin: 06/06/18 15:21 Dose: 1 drop Ferrous Sulfate (Feosol) 450 mg GT DAILY [facility] Last Admin: 06/06/18 10:38 Dose: 450 mg Heparin Sodium (Porcine) (Heparin -) 5,000 unit SQ BID [facility] Last Admin: 06/06/18 10:36 Dose: 5,000 unit Insulin Aspart (Novolog Vial Sliding Scale -) 1 vial SQ ACHS [facility]; Protocol Last Admin: 06/06/18 11:45 Dose: Not Given Insulin Detemir (Levemir Vial) 10 units SQ AM [facility] Last Admin: 06/06/18 06:51 Dose: 10 unit Latanoprost (Xalatan 0.005% Eye Drops -) 1 drop OU HS [facility] Last Admin: 06/05/18 22:05 Dose: 1 drop Multivitamins/Minerals (Theragran-M) 1 each PO DAILY [facility] Last Admin: 06/06/18 10:37 Dose: 1 each Pilocarpine HCl (Pilostat 1% -) 1 drop OU QID [facility] Last Admin: 06/06/18 14:23 Dose: 1 drop Polyethylene Glycol (Miralax (For Bowel Prep) -) 17 gm PO DAILY [facility] Last Admin: 06/06/18 15:24 Dose: Not Given Ranitidine HCl (Zantac Oral Solution -) 150 mg GT BID [facility] Last Admin: 06/06/18 10:40 Dose: 150 mg Timolol Maleate (Timoptic 0.25%) 1 drop OD DAILY [facility] Last Admin: 06/06/18 10:24 Dose: 1 applic Zinc Sulfate (Orazinc -) 220 mg PO BID [facility] Last Admin: 06/06/18 10:36 Dose: 220 mg - Objective Vital Signs: Vital Signs Temperature 97.4 F L 06/06/18 15:30 Pulse Rate 84 06/06/18 15:30 Respiratory Rate 18 06/06/18 15:30 Blood Pressure 148/75 06/06/18 15:30 O2 Sat by Pulse Oximetry (%) 95 06/06/18 09:00 Constitutional: Yes: No Distress Eyes: Yes: Conjunctiva Clear Cardiovascular: Yes: Regular Rate and Rhythm, S1, S2 Respiratory: Yes: Diminished Gastrointestinal: Yes: Normal Bowel Sounds, Soft. No: Tenderness Extremities: Yes: Other (+ heel ulcer) Labs: CBC, BMP 06/06/18 06:15 06/06/18 06:15 INR, PTT INR 0.96 (0.82-1.09) 05/30/18 18:50 Assessment/Plan S/P respiratory failure CHF/ pneumonia CKD Hx ESBL Parkinsonism/ OBS Substitute ceftin 250mg po bid x 3d
--- NOTE | 2018-06-06 17:11 | PN ---
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, Physician History of Present Illness: Pt seen and examined at bedside. She appears comfortable. - Current Medication List Current Medications: Active Medications Amino Acids (Prosource No Carb Liquid Pkt) 30 ml GT BID@0800,1730 [facility] Last Admin: 06/06/18 16:49 Dose: 30 ml Ascorbic Acid (Vitamin C -) 500 mg PO BID [facility] Last Admin: 06/06/18 10:36 Dose: 500 mg Aspirin (Ecotrin -) 81 mg NR DAILY [facility] Last Admin: 06/06/18 10:37 Dose: 81 mg Bacitracin (Bacitracin -) 1 applic TP DAILY [facility] Last Admin: 06/06/18 10:38 Dose: 1 applic Brimonidine Tartrate (Alphagan P 0.1% -) 1 drop OU TID [facility] Last Admin: 06/06/18 14:25 Dose: 1 drop Calcium Carbonate/Cholecalciferol (Os-Isacc 500+D -) 1 tab GT DAILY [facility] Last Admin: 06/06/18 10:37 Dose: 1 tab Chlorhexidine Gluconate (Hibiclens For Decolonization -) 1 applic TP HS [facility] Last Admin: 06/05/18 22:03 Dose: Not Given Citalopram Hydrobromide (Celexa -) 10 mg GT DAILY [facility] Last Admin: 06/06/18 10:37 Dose: 10 mg Collagenase (Santyl -) 1 applic TP DAILY [facility]; Protocol Last Admin: 06/06/18 12:24 Dose: 1 applic Cyanocobalamin (Vitamin B12 -) 1,000 mcg GT DAILY [facility] Last Admin: 06/06/18 10:37 Dose: 1,000 mcg Docusate Sodium (Colace Liquid -) 300 mg GT DAILY [facility] Last Admin: 06/06/18 10:39 Dose: 300 mg Dorzolamide HCl (Trusopt 2%) 1 drop OU TID [facility] Last Admin: 06/06/18 15:21 Dose: 1 drop Ferrous Sulfate (Feosol) 450 mg GT DAILY [facility] Last Admin: 06/06/18 10:38 Dose: 450 mg Heparin Sodium (Porcine) (Heparin -) 5,000 unit SQ BID [facility] Last Admin: 06/06/18 10:36 Dose: 5,000 unit Insulin Aspart (Novolog Vial Sliding Scale -) 1 vial SQ ACHS [facility]; Protocol Last Admin: 06/06/18 16:49 Dose: Not Given Insulin Detemir (Levemir Vial) 10 units SQ AM [facility] Last Admin: 06/06/18 06:51 Dose: 10 unit Latanoprost (Xalatan 0.005% Eye Drops -) 1 drop OU HS [facility] Last Admin: 06/05/18 22:05 Dose: 1 drop Multivitamins/Minerals (Theragran-M) 1 each PO DAILY [facility] Last Admin: 06/06/18 10:37 Dose: 1 each Pilocarpine HCl (Pilostat 1% -) 1 drop OU QID [facility] Last Admin: 06/06/18 14:23 Dose: 1 drop Polyethylene Glycol (Miralax (For Bowel Prep) -) 17 gm PO DAILY [facility] Last Admin: 06/06/18 15:24 Dose: Not Given Ranitidine HCl (Zantac Oral Solution -) 150 mg GT BID [facility] Last Admin: 06/06/18 10:40 Dose: 150 mg Timolol Maleate (Timoptic 0.25%) 1 drop OD DAILY [facility] Last Admin: 06/06/18 10:24 Dose: 1 applic Zinc Sulfate (Orazinc -) 220 mg PO BID [facility] Last Admin: 06/06/18 10:36 Dose: 220 mg - Objective Vital Signs: Vital Signs Temperature 97.4 F L 06/06/18 15:30 Pulse Rate 84 06/06/18 15:30 Respiratory Rate 18 06/06/18 15:30 Blood Pressure 148/75 06/06/18 15:30 O2 Sat by Pulse Oximetry (%) 95 06/06/18 09:00 Constitutional: Yes: Calm Eyes: Yes: Conjunctiva Clear HENT: Yes: Atraumatic Neck: Yes: Supple Cardiovascular: Yes: S1, S2 Respiratory: Yes: On Nasal O2 Gastrointestinal: Yes: Soft, Other (peg) Genitourinary: Yes: Incontinence Musculoskeletal: Yes: Muscle Weakness Edema: No Neurological: Yes: Lethargy, Pre-Existing Deficit Labs: CBC, BMP 06/06/18 06:15 06/06/18 06:15 INR, PTT INR 0.96 (0.82-1.09) 05/30/18 18:50 Problem List - Problems (1) Altered mental status Code(s): R41.82 - ALTERED MENTAL STATUS, UNSPECIFIED Qualifiers: Altered mental status type: unspecified Qualified Code(s): R41.82 - Altered mental status, unspecified (2) CKD (chronic kidney disease) Code(s): N18.9 - CHRONIC KIDNEY DISEASE, UNSPECIFIED (3) Sepsis Code(s): A41.9 - SEPSIS, UNSPECIFIED ORGANISM Assessment/Plan Current Medications Generic Name Dose Route Start Last Admin Trade Name Vigneshq PRN Reason Stop Dose Admin Amino Acids 30 ml 06/01/18 08:00 06/06/18 16:49 Prosource No Carb Liquid Pkt GT 30 ml BID@0800,1730 [facility] Administration Ascorbic Acid 500 mg 06/06/18 10:00 06/06/18 10:36 Vitamin C - PO 500 mg BID [facility] Administration Aspirin 81 mg 06/01/18 10:00 06/06/18 10:37 Ecotrin - NR 81 mg DAILY [facility] Administration Bacitracin 1 applic 06/01/18 10:00 06/06/18 10:38 Bacitracin - TP 1 applic DAILY [facility] Administration Brimonidine Tartrate 1 drop 05/31/18 22:00 06/06/18 14:25 Alphagan P 0.1% - OU 1 drop TID [facility] Administration Calcium Carbonate/Cholecalciferol 1 tab 06/01/18 10:00 06/06/18 10:37 Os-Isacc 500+D - GT 1 tab DAILY [facility] Administration Chlorhexidine Gluconate 1 applic 05/31/18 22:00 06/05/18 22:03 Hibiclens For Decolonization - TP Not Given HS [facility] Citalopram Hydrobromide 10 mg 06/01/18 10:00 06/06/18 10:37 Celexa - GT 10 mg DAILY [facility] Administration Collagenase 1 applic 06/01/18 10:00 06/06/18 12:24 Santyl - TP 1 applic DAILY [facility] Administration Protocol Cyanocobalamin 1,000 mcg 06/01/18 10:00 06/06/18 10:37 Vitamin B12 - GT 1,000 mcg DAILY [facility] Administration Docusate Sodium 300 mg 06/01/18 10:00 06/06/18 10:39 Colace Liquid - GT 300 mg DAILY [facility] Administration Dorzolamide HCl 1 drop 05/31/18 22:00 06/06/18 15:21 Trusopt 2% OU 1 drop TID [facility] Administration Ferrous Sulfate 450 mg 06/01/18 10:00 06/06/18 10:38 Feosol GT 450 mg DAILY [facility] Administration Heparin Sodium (Porcine) 5,000 unit 05/31/18 22:00 06/06/18 10:36 Heparin - SQ 5,000 unit BID [facility] Administration Insulin Aspart 1 vial 06/04/18 16:30 06/06/18 16:49 Novolog Vial Sliding Scale - SQ Not Given ACHS [facility] Protocol Insulin Detemir 10 units 06/05/18 07:00 06/06/18 06:51 Levemir Vial SQ 10 unit AM [facility] Administration Latanoprost 1 drop 05/31/18 22:00 06/05/18 22:05 Xalatan 0.005% Eye Drops - OU 1 drop HS [facility] Administration Multivitamins/Minerals 1 each 06/04/18 11:45 06/06/18 10:37 Theragran-M PO 1 each DAILY [facility] Administration Pilocarpine HCl 1 drop 05/31/18 22:00 06/06/18 14:23 Pilostat 1% - OU 1 drop QID [facility] Administration Polyethylene Glycol 17 gm 06/01/18 10:00 06/06/18 15:24 Miralax (For Bowel Prep) - PO Not Given DAILY [facility] Ranitidine HCl 150 mg 05/31/18 22:00 06/06/18 10:40 Zantac Oral Solution - GT 150 mg BID [facility] Administration Timolol Maleate 1 drop 06/01/18 10:00 06/06/18 10:24 Timoptic 0.25% OD 1 applic DAILY [facility] Administration Zinc Sulfate 220 mg 06/06/18 10:00 06/06/18 10:36 Orazinc - PO 220 mg BID [facility] Administration Impression 1. CKD 2. anemia 3. change in mental status 4. sepsis 5. DM 6. Parkinson's disease 7. Depression 8. hypernatremia Plan - will need to monitor renal function and sodium - nutrition eval in NH - will likely need extra free water - discussed with medical team - abx per ID Dr Brooks
== END 2018-06-06 18:01 | DRG 871 ==
LOC: JER 18:17 → JERBED 23:16 → JICU 05-31 02:31 → J7W 05-31 20:25
PROVIDERS: ADMIT Internal Medicine; ATTEND Family Medicine
PROC: 30233N1 Transfusion of Nonautologous Red Blood Cells into Peripheral Vein, Percutaneous Approach (ICD-10-PCS; principal; 2018-06-01)
DX: A41.9 Sepsis, unspecified organism (principal); J96.01 Acute respiratory failure with hypoxia; J18.9 Pneumonia, unspecified organism; E43 Unspecified severe protein-calorie malnutrition; N18.4 Chronic kidney disease, stage 4 (severe); R64 Cachexia; Z68.1 Body mass index [BMI] 19.9 or less, adult; E87.0 Hyperosmolality and hypernatremia; E87.2 Acidosis; I12.9 Hypertensive chronic kidney disease with stage 1 through stage 4 chronic kidney disease, or unspecified chronic kidney disease; E11.22 Type 2 diabetes mellitus with diabetic chronic kidney disease; F03.90 Unspecified dementia, unspecified severity, without behavioral disturbance, psychotic disturbance, mood disturbance, and anxiety; E78.5 Hyperlipidemia, unspecified; I25.10 Atherosclerotic heart disease of native coronary artery without angina pectoris; I95.9 Hypotension, unspecified; L89.152 Pressure ulcer of sacral region, stage 2; R41.82 Altered mental status, unspecified; G20 Parkinson's disease; F09 Unspecified mental disorder due to known physiological condition; H40.9 Unspecified glaucoma; R33.9 Retention of urine, unspecified; R13.10 Dysphagia, unspecified; D64.9 Anemia, unspecified; F32.9 Major depressive disorder, single episode, unspecified; E86.0 Dehydration
CPT/HCPCS: 36415; 36430; 36600; 70450-TC; 71045-TC-FY; 80048; 80053; 81003; 81015; 82272; 82375; 82550; 82607; 82728; 82803; 82962; 83036; 83050; 83540; 83550; 83605; 83735; 83880; 84100; 84439; 84443; 84484; 85025; 85610; 85730; 86850; 86900; 86901; 86922; 87040; 87070; 87086; 87186; 87205; 93005; 93010; 93306-TC; 94640; 97161-GP; 99285-25; G0480; J0131; J1644; J7030; J7620; P9038; P9058

== ENCOUNTER 2018-07-04 17:18 | Inpatient (IN) | payer OTHER ==
[2018-07-04] MEDS ORDERED: SODIUM CHLORIDE 0.9% 1000 ML INFUS.BAG IV ONE (17:39)
--- NOTE | 2018-07-04 17:39 | PDOC ---
History of Present Illness - General History Source: EMS Exam Limitations: Unresponsive - History of Present Illness Initial Comments: 07/04/18 18:46 The patient is a 67-year-old female with significant past medical history of anemia, dementia, DM, HTN, HLD, kidney failure, glaucoma, Parkinsons, who presents to the emergency department today BIBEMS from [facility] to be evaluated for altered mental status, and hypothermic. As per EMS, the patient was found to have a temperature of 92 F, was hypertensive and bradychardic at [facility]. In the ED, the patient is contracted in flexion and non-verbal which is consistent with patient's baseline. Allergies: NKA Social history: none reported Surgical history: none reported PCP: Dr. Pradip Montelongo <Celena Duffy - Last Filed: 07/04/18 23:05> <Esteban Kennedy - Last Filed: 07/05/18 00:14> - General Stated Complaint: HYPOTENSIVE Time Seen by Provider: 07/04/18 17:39 Past History <Celena Duffy - Last Filed: 07/04/18 23:05> - Past Medical History Anemia: Yes Asthma: No Cancer: No Cardiac Disorders: No CVA: No COPD: No CHF: No Dementia: Yes Diabetes: Yes GI Disorders: No Disorders: No HTN: Yes Hypercholesterolemia: Yes Liver Disease: No Psychiatric Problems: Yes Seizures: No Thyroid Disease: No - Suicide/Smoking/Psychosocial Hx Smoking History: Unknown if ever smoked Have you smoked in the past 12 months: No Hx Alcohol Use: No (unknown) Drug/Substance Use Hx: No Substance Use Type: None Hx Substance Use Treatment: No <Esteban Kennedy - Last Filed: 07/05/18 00:14> - Past Medical History Allergies/Adverse Reactions: Allergies Allergy/AdvReac Type Severity Reaction Status Date / Time No Known Allergies Allergy Verified 11/28/17 11:40 Home Medications: Ambulatory Orders Aspirin [Aspirin EC] 81 mg PO DAILY 11/28/17 Brimonidine Tartrate [Alphagan P 0.1% -] 1 drop OU TID 11/28/17 Calcium Carbonate/Vitamin D3 [Calcium 500-Vit D3 200 Caplet] 1 each PO DAILY Citalopram Hydrobromide [Celexa -] 10 mg PO DAILY 11/28/17 Cyanocobalamin (Vitamin B-12) [Vitamin B-12] 1,000 mcg PO DAILY 11/28/17 Dorzolamide HCl [Trusopt 2% -] 1 drop OU TID 11/28/17 Latanoprost 0.005% Eye Drops [Xalatan 0.005% Eye Drops -] 1 drop OU HS 11/28/17 Pilocarpine 1% [Pilostat 1% -] 1 drop OU QID 11/28/17 Insulin Sliding Scale [Novolog Vial Sliding Scale -] 1 vial SQ HS units Ferrous Sulfate 7.5 ml PO DAILY 05/30/18 Omeprazole Pediatric Solution [Omeprazole Pediatric Oral Solution] 20 mg GT HS 05/30/18 Polyethylene Glycol 3350 [Glycolax] 17 gm PO DAILY 05/30/18 Timolol 0.25% [Timoptic 0.25%] 5 ml OD DAILY 05/30/18 Albuterol 2.5/Ipratropium 0.5 [Duoneb -] 1 amp NEB RTID amp 06/06/18 Amino Acids/Protein Hydrolys [Prosource No Carb Liquid Pkt] 30 ml GT BID@0800, 1730 packet 06/06/18 Ascorbic Acid [Vitamin C -] 500 mg PO BID tablet 06/06/18 Cefuroxime Axetil [Ceftin -] 250 mg PO BID #6 tablet 06/06/18 Collagenase Clostridium Hist. [Santyl -] 1 applic TP DAILY tube 06/06/18 Cyanocobalamin [Vitamin B12 -] 1,000 mcg GT DAILY tablet 06/06/18 Insulin (Levemir) [Levemir Vial] 10 units SQ AM units 06/06/18 Zinc Sulfate [Orazinc -] 220 mg PO BID capsule 06/06/18 Review of Systems - Review of Systems Able to Perform ROS?: No (patient is unresponsive) <Celena Duffy - Last Filed: 07/04/18 23:05> *Physical Exam - Vital Signs Last Vital Signs Temp Pulse Resp BP Pulse Ox 93.6 F L 50 L 10 L 92/46 96 07/04/18 17:51 07/04/18 17:51 07/04/18 17:51 07/04/18 17:51 07/04/18 17:51 - Physical Exam Comments: 07/04/18 18:49 Vitals: Triage vital signs reviewed General Appearance: (+)Cachectic. (+)Unresponsive Head: Atraumatic Neck: Supple; No nuchal rigidity Chest Wall: Nontender Cardiac: (+)Bradychardic. Regular rate and rhythm, no murmurs, no rubs, no gallops Lungs: Clear to auscultation bilateral, good air movement bilaterally Abdomen: Soft, nondistended, normal bowel sounds, nontender to palpation Rectal: Exam deferred Extremities: no cyanosis, clubbing, or edema Skin: Warm and dry, no rashes or lesions, no rash, no petechiae <Celena Duffy - Last Filed: 07/04/18 23:05> ED Treatment Course - LABORATORY CBC & Chemistry Diagram: 07/04/18 18:00 07/04/18 18:00 - ADDITIONAL ORDERS Additional order review: Laboratory Results 07/04/18 07/04/18 07/04/18 18:00 18:00 18:00 PT with INR INR PTT (Actin FS) VBG pH 7.23 L* POC VBG pCO2 53.4 H POC VBG pO2 26.6 L Mixed VBG HCO3 21.3 Sodium 135 L Potassium 3.6 Chloride 101 Carbon Dioxide 21 Anion Gap 13 BUN 76 H Creatinine 2.0 H Creat Clearance w eGFR 24.70 Random Glucose 279 H Lactic Acid 1.5 Calcium 8.7 Total Bilirubin 0.2 AST 33 ALT 68 Alkaline Phosphatase 118 H D Total Protein 6.0 L Albumin 2.1 L 07/04/18 18:00 PT with INR 10.10 INR 0.89 PTT (Actin FS) 31.4 VBG pH POC VBG pCO2 POC VBG pO2 Mixed VBG HCO3 Sodium Potassium Chloride Carbon Dioxide Anion Gap BUN Creatinine Creat Clearance w eGFR Random Glucose Lactic Acid Calcium Total Bilirubin AST ALT Alkaline Phosphatase Total Protein Albumin 07/04/18 18:00 RBC 3.24 L MCV 95.7 MCHC 32.8 RDW 13.7 MPV 7.9 Neutrophils % 85.3 H Lymphocytes % 8.9 Monocytes % 4.2 Eosinophils % 1.4 Basophils % 0.2 - Medications Given in the ED: ED Medications Discontinued Medications Generic Name Dose Route Start Last Admin Trade Name Freq PRN Reason Stop Dose Admin Sodium Chloride 2,000 ml 07/04/18 17:39 07/04/18 17:57 Normal Saline - IV 07/04/18 17:40 2,000 ml ONCE ONE Administration <Celena Duffy - Last Filed: 07/04/18 23:05> - LABORATORY CBC & Chemistry Diagram: 07/04/18 18:00 07/04/18 18:00 - RADIOLOGY Radiology Studies Ordered: Category Date Time Status CHEST X-RAY PORTABLE* [RAD] Stat Radiology 07/04/18 17:27 Ordered <Esteban Kennedy - Last Filed: 07/05/18 00:14> Medical Decision Making - Medical Decision Making 07/04/18 18:48 The patient is a 67-year-old female with significant past medical history of anemia, dementia, DM, HTN, HLD, kidney failure, glaucoma, Parkinsons, who presents to the emergency department today [facility] from [facility] to be evaluated for hypothermia and hypertension. History is obtained from EMS, patient is unresponsive. The patient appears unchanged from baseline using evidence from previous medical notes. Plan: -Labs -Chest Xray <Celena Duffy - Last Filed: 07/04/18 23:05> - Medical Decision Making 67 years old presents to the ED altered hypothermic bradycardic slightly hypoxic and hypotensive IV access obtained IV fluids given sepsis workup initiated Status post 2 L normal saline pressure improved. Pt. temperature improving on Erlinda hugger. Labs and urinalysis notable for UTI We'll admit patient to hospital for urosepsis. Based on previous urine culture sensitivities patient covered with daptomycin. <Esteban Kennedy - Last Filed: 07/05/18 00:14> *DC/Admit/Observation/Transfer - Attestations Scribe Attestion: 07/04/18 18:52 Documentation prepared by Celena Duffy, acting as medical equipment sales for Esteban Kennedy MD. <Celena Duffy - Last Filed: 07/04/18 23:05> - Discharge Dispostion Decision to Admit order: Yes <Esteban Kennedy - Last Filed: 07/05/18 00:14> Diagnosis at time of Disposition: UTI (urinary tract infection) Qualifiers: Urinary tract infection type: site unspecified Hematuria presence: without hematuria Qualified Code(s): N39.0 - Urinary tract infection, site not specified Sepsis Qualifiers: Sepsis type: sepsis due to unspecified organism Qualified Code(s): A41.9 - Sepsis, unspecified organism - Discharge Dispostion Condition at time of disposition: Critical
[2018-07-04 18:10] LABS: BASO % 0.2 % (0-2.0); EOS % 1.4 % (0-4.5); HEMOGLOBIN 10.2 GM/dL (10.7-15.3); LYMPH % 8.9 % (8-40); MCH 31.4 pg (25.7-33.7); MCHC 32.8 g/dl (32.0-36.0); MEAN CELL VOLUME 95.7 fl (80-96); MEAN PLT VOLUME 7.9 fl (7.5-11.1); MONO % 4.2 % (3.8-10.2); NEUT % 85.3 % (42.8-82.8); PLATELET COUNT 204 K/MM3 (134-434); RBC 3.24 M/mm3 (3.60-5.2); RDW 13.7 % (11.6-15.6)
[2018-07-04 18:13] LABS: VENOUS PC02 53.4 mmHg (38-52)
[2018-07-04 18:14] LABS: VENOUS PO2 26.6 mmHg (28-48)
[2018-07-04 18:15] LABS: VENOUS PH 7.23 (7.32-7.42)
[2018-07-04 18:24] LABS: INR 0.89 (0.83-1.09); PROTHROMBIN TIME (PATIENT) 10.1 SEC (9.7-13.0)
[2018-07-04 18:27] LABS: ACTIVATED PTT 31.4 SECONDS (25.2-36.5)
[2018-07-04 18:42] LABS: ALBUMIN 2.1 g/dl (3.4-5.0); ALK PHOS 118 U/L (45-117); ANION GAP 13 MMOL/L (8-16); BILIRUBIN,TOTAL 0.2 mg/dL (0.2-1.0); BLOOD UREA NITROGEN 76 mg/dL (7-18); CALCIUM 8.7 mg/dL (8.5-10.1); CHLORIDE 101 mmol/L (98-107); CO2 21 mmol/L (21-32); GLUCOSE,RANDOM 279 mg/dL (74-106); POTASSIUM 3.6 mmol/L (3.5-5.1); SGOT/AST 33 U/L (15-37); SGPT/ALT 68 U/L (12-78); SODIUM 135 mmol/L (136-145)
[2018-07-04 19:49] LABS: ARTERIAL BLD GAS O2 SATURATION 98.2 % (90-98.9); ARTERIAL BLOOD GAS BASE EXCESS -7.7 meq/l (-2-2); ARTERIAL BLOOD GAS PCO2 42.9 mmHg (35-45); ARTERIAL BLOOD GAS pH 7.26 (7.35-7.45)
[2018-07-04 19:57] LABS: URINE APPEARANCE CLOUDY; URINE BILIRUBIN NEGATIVE (<2.0 mg/dL); URINE COLOR LTYELLOW; URINE GLUCOSE (UA) 2+ (NEGATIVE); URINE KETONE NEGATIVE (NEGATIVE); URINE NITRITE NEGATIVE (NEGATIVE); URINE UROBILINOGEN NEGATIVE mg/dL (0.2-1.0)
[2018-07-04 20:06] LABS: URINE LEUK ESTERASE 3+ (NEGATIVE); URINE PROTEIN 1+ (NEGATIVE)
[2018-07-04 20:09] LABS: EPI CELLS RARE /HPF (FEW); URINE BACTERIA RARE /hpf (NONE SEEN); URINE MUCUS RARE
[2018-07-04] MEDS ORDERED: DAPTOMYCIN 160 MG in SODIUM CHLORIDE 50 ML IVPB ONE (21:03)
--- NOTE | 2018-07-04 22:15 | HP ---
Admitting History and Physical - Primary Care Physician PCP: Jayda Moseley - Admission Chief Complaint: Hypotension, Hypothermic History of Present Illness: The patient is a 67-year-old female with significant past medical history of anemia, dementia, DM, HTN, HLD, kidney failure, glaucoma, Parkinsons, who presents to the emergency department today BIBEMS from [facility] to be evaluated for altered mental status, and hypothermic. As per EMS, the patient was found to have a temperature of 92 F, was hypertensive and bradycardic at [facility]. In the ED, the patient is contracted in flexion and non-verbal which is consistent with patient's baseline. History Source: Medical Record, Transfer Record Limitations to Obtaining History: Clinical Condition, Dementia - Past Medical History [employer]: Yes: Dementia, Parkinson's Cardiovascular: Yes: Hyperlipdemia Renal/: Yes: Renal Failure (chronic stage 4 ), Renal Inusuff Heme/Onc: Yes: Anemia Psych: Yes: Depression Endocrine: Yes: Diabetes Mellitus - Advance Directives Advance Directives: Yes: MOLST (DNI) - Smoking History Smoking history: Unknown if ever smoked Have you smoked in the past 12 months: No - Alcohol/Substance Use Hx Alcohol Use: No (unknown) History of Substance Use: reports: None - Social History Usual Living Arrangement: Yes: [facility] ADL: Support Services History of Recent Travel: No Home Medications - Allergies Allergies/Adverse Reactions: Allergies Allergy/AdvReac Type Severity Reaction Status Date / Time No Known Allergies Allergy Verified 11/28/17 11:40 - Home Medications Home Medications: Ambulatory Orders Aspirin [Aspirin EC] 81 mg PO DAILY 11/28/17 Brimonidine Tartrate [Alphagan P 0.1% -] 1 drop OU TID 11/28/17 Calcium Carbonate/Vitamin D3 [Calcium 500-Vit D3 200 Caplet] 1 each PO DAILY Citalopram Hydrobromide [Celexa -] 10 mg PO DAILY 11/28/17 Cyanocobalamin (Vitamin B-12) [Vitamin B-12] 1,000 mcg PO DAILY 11/28/17 Dorzolamide HCl [Trusopt 2% -] 1 drop OU TID 11/28/17 Latanoprost 0.005% Eye Drops [Xalatan 0.005% Eye Drops -] 1 drop OU HS 11/28/17 Pilocarpine 1% [Pilostat 1% -] 1 drop OU QID 11/28/17 Insulin Sliding Scale [Novolog Vial Sliding Scale -] 1 vial SQ HS units Ferrous Sulfate 7.5 ml PO DAILY 05/30/18 Omeprazole Pediatric Solution [Omeprazole Pediatric Oral Solution] 20 mg GT HS 05/30/18 Polyethylene Glycol 3350 [Glycolax] 17 gm PO DAILY 05/30/18 Timolol 0.25% [Timoptic 0.25%] 5 ml OD DAILY 05/30/18 Albuterol 2.5/Ipratropium 0.5 [Duoneb -] 1 amp NEB RTID amp 06/06/18 Amino Acids/Protein Hydrolys [Prosource No Carb Liquid Pkt] 30 ml GT BID@0800, 1730 packet 06/06/18 Ascorbic Acid [Vitamin C -] 500 mg PO BID tablet 06/06/18 Cefuroxime Axetil [Ceftin -] 250 mg PO BID #6 tablet 06/06/18 Collagenase Clostridium Hist. [Santyl -] 1 applic TP DAILY tube 06/06/18 Cyanocobalamin [Vitamin B12 -] 1,000 mcg GT DAILY tablet 06/06/18 Insulin (Levemir) [Levemir Vial] 10 units SQ AM units 06/06/18 Zinc Sulfate [Orazinc -] 220 mg PO BID capsule 06/06/18 Family Disease History - Family Disease History Family History: Unable to Obtain Review of Systems Unable to obtain ROS, reason: Dementia Physical Examination Vital Signs: Vital Signs Temperature 93.6 F L 07/04/18 17:51 Pulse Rate 50 L 07/04/18 19:25 Respiratory Rate 12 07/04/18 19:25 Blood Pressure 106/62 07/04/18 19:25 O2 Sat by Pulse Oximetry (%) 100 07/04/18 19:25 Constitutional: Yes: Thin Eyes: Yes: Conjunctiva Clear, PERRL HENT: Yes: Atraumatic, Normocephalic Neck: Yes: WNL, Supple, Trachea Midline Cardiovascular: Yes: Bradycardia, Murmur, S1, S2 Respiratory: Yes: CTA Bilaterally, On Nasal O2 Gastrointestinal: Yes: Soft, Hypoactive Bowel Sounds, Other (PEG Tube) ...Rectal Exam: Yes: Deferred Renal/: Yes: Incontinence Breast(s): Yes: WNL Musculoskeletal: Yes: Joint Stiffness, Other (severly contracted) Edema: No Peripheral Pulses WNL: Yes Wound/Incision: Yes: Other (Pressure Ulcer Left Heel Stage 4) Neurological: Yes: Unresponsive Labs: CBC, BMP 07/04/18 18:00 07/04/18 18:00 Imaging - Results Chest X-ray: Report Reviewed (No Acute Pulmonary Disease), Image Reviewed Cat Scan: Image Reviewed Problem List - Problems (1) Sepsis Code(s): A41.9 - SEPSIS, UNSPECIFIED ORGANISM Qualifiers: Sepsis type: sepsis due to unspecified organism Qualified Code(s): A41.9 - Sepsis, unspecified organism (2) UTI (urinary tract infection) Code(s): N39.0 - URINARY TRACT INFECTION, SITE NOT SPECIFIED Qualifiers: Urinary tract infection type: site unspecified Hematuria presence: without hematuria Qualified Code(s): N39.0 - Urinary tract infection, site not specified (3) ESBL (extended spectrum beta-lactamase) producing bacteria infection Code(s): A49.9 - BACTERIAL INFECTION, UNSPECIFIED; Z16.12 - EXTENDED SPECTRUM BETA LACTAMASE (ESBL) RESISTANCE (4) CKD (chronic kidney disease) Code(s): N18.9 - CHRONIC KIDNEY DISEASE, UNSPECIFIED Assessment/Plan 67 y/o man Admitted for Sepsis secondary to UTI for further evaluation of their emergent condition. Plan: 1. ID: Urospepsis Will admit for Urosepsis Sepsis Criteria Met: T Max 93.6, Neutrophils 85.3, BUN 76, UA +3 jessica esterase, 335 WBBC unix analyst Blood culture-pending Urine Culture-pending Appreciate ID consult Continue Daptomycin Monitor CBC, BMP Continue IVF Tylenol prn Maintain MAP > 65 2. Hypothermia - See above - Likely secondary to Sepsis - Erlinda Maruer - Monitor vitals 3. Hypotension - See above - Fluid resuscitation given in ED - Continue IVF - Monitor renal function 4. Cardiology: HTN, HLD - Will hold home meds secondary to hypotension - Monitor renal function - Monitor LFTs 5. Neuro: Parkinson's Disease - stable - Continue home med 6. Psych: Dementia - stable - Continue home med 7 . Heme: Anemia - stable - Hgb 10.2 - Will transfuse if Hgb < 7.0 8. FEN - Gentle IVF - Replete lytes prn - NPO Code Status: DNI, Molst Dispo: Requires Inpatient Care Visit type - Emergency Visit Emergency Visit: Yes ED Registration Date: 07/04/18 Care time: The patient presented to the Emergency Department on the above date and was hospitalized for further evaluation of their emergent condition. - New Patient This patient is new to me today: Yes Date on this admission: 07/04/18 - Critical Care Critical Care patient: No Hospitalist Screening - Colonoscopy Questionnaire Colonoscopy Questionnaire: Colonoscopy Questionnaire - Patient: 50 - 75 years old and never had a screening colonoscopy: Unknown History of colon or rectal polyps, or CA: Unknown History of IBD, Crohn's disease or UC: Unknown History of abdominal radiation therapy as a child: Unknown - Relative: 1 with colon or rectal CA, or polyps at age 60 or younger: Unknown Colon or rectal CA diagnosed at age 45 or younger: Unknown Multiple relatives with colon or rectal CA: Unknown - Outcome: Screening Result: Negative Screen
[2018-07-05 06:32] LABS: BASO % 0.4 % (0-2.0); EOS % 0.9 % (0-4.5); HEMATOCRIT 30.9 % (32.4-45.2); HEMOGLOBIN 10.2 GM/dL (10.7-15.3); LYMPH % 5.6 % (8-40); MCH 31.6 pg (25.7-33.7); MEAN CELL VOLUME 95.7 fl (80-96); MEAN PLT VOLUME 7.6 fl (7.5-11.1); MONO % 2.7 % (3.8-10.2); NEUT % 90.4 % (42.8-82.8); PLATELET COUNT 182 K/MM3 (134-434); RBC 3.23 M/mm3 (3.60-5.2); RDW 13.7 % (11.6-15.6); WHITE BLOOD COUNT 10.5 K/mm3 (4.0-10.0)
[2018-07-05 06:54] LABS: ANION GAP 12 MMOL/L (8-16); BLOOD UREA NITROGEN 65 mg/dL (7-18); CALCIUM 8.4 mg/dL (8.5-10.1); CHLORIDE 109 mmol/L (98-107); CO2 20 mmol/L (21-32); CREATININE 1.8 mg/dL (0.55-1.02); GLUCOSE,RANDOM 163 mg/dL (74-106); MAGNESIUM 1.9 mg/dL (1.8-2.4); PHOSPHOROUS 3.4 mg/dL (2.5-4.9); POTASSIUM 3.7 mmol/L (3.5-5.1); SODIUM 141 mmol/L (136-145)
[2018-07-05] MEDS ORDERED: SODIUM CHLORIDE 1,000 ML IV SCH (07:30)
[2018-07-05] MEDS ORDERED: DAPTOMYCIN 160 MG in SODIUM CHLORIDE 50 ML IVPB SCH (10:00)
[2018-07-05 11:11] LABS: BASO % 0.4 % (0-2.0); EOS % 0.9 % (0-4.5); HEMATOCRIT 28.6 % (32.4-45.2); HEMOGLOBIN 9.4 GM/dL (10.7-15.3); LYMPH % 7.1 % (8-40); MCH 31.1 pg (25.7-33.7); MCHC 32.9 g/dl (32.0-36.0); MEAN CELL VOLUME 94.8 fl (80-96); MEAN PLT VOLUME 7.5 fl (7.5-11.1); MONO % 3.1 % (3.8-10.2); NEUT % 88.5 % (42.8-82.8); PLATELET COUNT 200 K/MM3 (134-434); RBC 3.02 M/mm3 (3.60-5.2); RDW 13.6 % (11.6-15.6); WHITE BLOOD COUNT 9.7 K/mm3 (4.0-10.0)
--- NOTE | 2018-07-05 11:13 | PN ---
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, Physician - Current Medication List Current Medications: Active Medications Sodium Chloride (Normal Saline -) 1,000 mls @ 42 mls/hr IV ASDIR GRETCHEN Last Admin: 07/05/18 08:01 Dose: 42 mls/hr Daptomycin 160 mg/ Sodium (Chloride) 50 mls @ 50 mls/hr IVPB DAILY GRETCHEN; Protocol - Objective Vital Signs: Vital Signs Temperature 97.5 F L 07/05/18 07:52 Pulse Rate 61 07/05/18 09:07 Respiratory Rate 16 07/05/18 09:07 Blood Pressure 105/58 07/05/18 09:07 O2 Sat by Pulse Oximetry (%) 100 07/05/18 09:07 Cardiovascular: Yes: S1, S2 Respiratory: Yes: Diminished, On Nasal O2, Rhonchi Gastrointestinal: Yes: Normal Bowel Sounds, Soft Labs: INR, PTT INR 0.89 (0.83-1.09) 07/04/18 18:00 Problem List - Problems (1) Sepsis Assessment/Plan: Blood culture- Urine Culture- ID consult Continue Daptomycin Monitor CBC, BMP Continue IVF Tylenol prn Maintain MAP > 65 Code(s): A41.9 - SEPSIS, UNSPECIFIED ORGANISM Qualifiers: Sepsis type: sepsis due to unspecified organism Qualified Code(s): A41.9 - Sepsis, unspecified organism (2) Altered mental status Code(s): R41.82 - ALTERED MENTAL STATUS, UNSPECIFIED Qualifiers: Altered mental status type: unspecified Qualified Code(s): R41.82 - Altered mental status, unspecified (3) CKD (chronic kidney disease) Assessment/Plan: -IVF -Monitor -Renal Consult Code(s): N18.9 - CHRONIC KIDNEY DISEASE, UNSPECIFIED (4) Parkinson disease Code(s): G20 - PARKINSON'S DISEASE (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
--- NOTE | 2018-07-05 11:20 | PN ---
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 in May has erythema and necrosis of the left big toe and the left heel received ivf and daptomycin in ed would f/u cultures and treat with ertapenem for now Problem List - Problems (1) Altered mental status Code(s): R41.82 - ALTERED MENTAL STATUS, UNSPECIFIED Qualifiers: Altered mental status type: unspecified Qualified Code(s): R41.82 - Altered mental status, unspecified (2) UTI (urinary tract infection) Code(s): N39.0 - URINARY TRACT INFECTION, SITE NOT SPECIFIED Qualifiers: Urinary tract infection type: site unspecified Hematuria presence: without hematuria Qualified Code(s): N39.0 - Urinary tract infection, site not specified (3) Heel ulcer Code(s): L97.409 - NON-PRS CHRONIC ULCER OF UNSP HEEL AND MIDFOOT W UNSP SEVERT (4) Dementia Code(s): F03.90 - UNSPECIFIED DEMENTIA WITHOUT BEHAVIORAL DISTURBANCE (5) MDRO (multiple drug resistant organisms) resistance Code(s): Z16.35 - RESISTANCE TO MULTIPLE ANTIMICROBIAL DRUGS
[2018-07-05] MEDS ORDERED: ERTAPENEM SODIUM 0.5 GM in SODIUM CHLORIDE 50 ML IVPB SCH (11:30)
--- NOTE | 2018-07-05 12:04 | EKG ---
Test Reason : Blood Pressure : / mmHG Vent. Rate : 050 BPM Atrial Rate : 050 BPM P-R Int : 254 ms QRS Dur : 114 ms QT Int : 502 ms P-R-T Axes : 086 -74 044 degrees QTc Int : 457 ms POOR DATA QUALITY, INTERPRETATION MAY BE ADVERSELY AFFECTED SINUS BRADYCARDIA WITH 1ST DEGREE A-V BLOCK LEFT ANTERIOR FASCICULAR BLOCK SEPTAL INFARCT (CITED ON OR BEFORE 28-NOV-2017) ABNORMAL ECG WHEN COMPARED WITH ECG OF 30-MAY-2018 19:32, PREMATURE ATRIAL COMPLEXES ARE NO LONGER PRESENT Confirmed by FIONA FORMAN MD ([id number]) on 07/05/2018 12:04:52 PM Referred By: Confirmed By:FIONA FORMAN MD
[2018-07-05 12:12] LABS: ANION GAP 10 MMOL/L (8-16); BLOOD UREA NITROGEN 62 mg/dL (7-18); CALCIUM 8.4 mg/dL (8.5-10.1); CHLORIDE 112 mmol/L (98-107); CO2 20 mmol/L (21-32); CREATININE 1.7 mg/dL (0.55-1.02); GLUCOSE,RANDOM 149 mg/dL (74-106); POTASSIUM 3.9 mmol/L (3.5-5.1); SODIUM 142 mmol/L (136-145)
--- NOTE | 2018-07-05 12:16 | CONS ---
DATE OF CONSULTATION: DATE OF DICTATION: 07/05/2018 This is a 67-year-old woman [facility] She was recently in the hospital in May. She has severe dementia. She was sent with lethargy and hypothermia. She was noted to have pyuria, was given fluids, warmed with Erlinda Hugger and was given a dose of daptomycin. Her past medical history is notable for remote history of ESBL UTI in the past. Her chest x-ray is clear. PAST MEDICAL HISTORY: Notable for history of Parkinson's disease, dementia, hyperlipidemia, renal insufficiency, CKD, anemia, depression, diabetes. She is at baseline contracted and nonverbal. SOCIAL HISTORY: History of cigarette and substance use not known. [facility]. She has no known drug allergies. MEDICATIONS: Her medications there include aspirin, calcium carbonate, Celexa, B12, ferrous sulfate, insulin, MiraLax, albuterol nebulizer. REVIEW OF SYSTEMS: Not obtainable. PHYSICAL EXAMINATION: General: She is a thin woman. She is awake now, and she is not able to speak, but she is groaning. She only groans when she is moved, so otherwise she appears comfortable. Vital Signs: She now has a temperature of 97.5. Her temperature on admission was 93.6. Pulse is 61, blood pressure 105/58. Respiratory rate is 16. She is saturating 100% on room air. Constitutional: She is a thin woman in no acute distress. HEENT: She is normocephalic. Eyes are anicteric. Lungs: Clear to auscultation. Heart: Regular rate and rhythm. Abdomen: Soft, nontender. Extremities: Notable for a necrotic ulcer on her left big toe as well as a necrotic left heel ulcer. The right foot is without any ulcers, and she has no sacral skin breakdown. LABORATORY: White count was 10.5 on admission, today 9.7. Hemoglobin 9.4. Platelets are 200,000. Her chemistries: BUN and creatinine on admission were 76 and 2, this morning 65 and 1.8. LFTs are notable for alkaline phosphatase of 118. Urinalysis had 3+ leukocytes with 335 white cells. She had a head CT done that was notable for no evidence of an acute intracranial process. She had a chest x-ray that showed no acute pulmonary disease. During the past admission she was noted to have a urine culture with 10,000 enterococcus that was resistant to vancomycin. The culture of the left heel grew polymicrobial kee including MSSA. SUMMARY: This is a 67-year-old woman with severe dementia with hypothermia, lethargy most likely secondary to urinary tract infection. Given the prior history of resistant ESBL organisms, would resume ertapenem adjusted for her chronic kidney disease. She appears at her baseline, which appears to be about 1.8-2. She has a history as well of VRE in her urine, so would maintain contact isolation. Her mental status appears improved since she was hydrated. She has a heel ulcer as well, and toe ulcer, that it would be reasonable to have her seen by someone from the wound care service. Lastly, for her multidrug-resistant organisms she should be maintained on contact isolation in the hospital. Further recommendations to follow. NORTH HAYES M.D. [id number]
--- NOTE | 2018-07-05 15:20 | CONSULT ---
Consult Consult Specialty:: Nephrology Reason for Consultation:: CKD - History of Present Illness Chief Complaint: sent in for altered mental status and hypothermia History of Present Illness: Pt is a 67 year old female with pmhx of CKD, anemia, dementia, HTN, glaucoma, HLD and Parkinsons who was sent to the ER for altered mentation and hypothermia. Pt follows with me as outpt for CKD. She is a resident of [facility]. She was found to have a temp of 92. Pt is not verbal. She has been clinically deteriorating over the last few years. She is lethargic and unable to give history. - History Source Limitations to Obtaining History: Clinical Condition - Past Medical History QUALIFIED [employer] WORK[employer]: Yes: Dementia, Parkinson's Cardio/Vascular: Yes: Hyperlipdemia Renal/: Yes: Renal Failure (chronic stage 4 ), Renal Inusuff Psych: Yes: Depression Endocrine: Yes: Diabetes Mellitus Additional Medical History: Glaucoma - Alcohol/Substance Use Hx Alcohol Use: No (unknown) History of Substance Use: reports: None - Smoking History Smoking history: Unknown if ever smoked Have you smoked in the past 12 months: No - Social History ADL: Support Services History of Recent Travel: No Home Medications - Allergies Allergies/Adverse Reactions: Allergies Allergy/AdvReac Type Severity Reaction Status Date / Time No Known Allergies Allergy Verified 11/28/17 11:40 - Home Medications Home Medications: Ambulatory Orders Aspirin [Aspirin EC] 81 mg PO DAILY 11/28/17 Brimonidine Tartrate [Alphagan P 0.1% -] 1 drop OU TID 11/28/17 Calcium Carbonate/Vitamin D3 [Calcium 500-Vit D3 200 Caplet] 1 each PO DAILY Citalopram Hydrobromide [Celexa -] 10 mg PO DAILY 11/28/17 Cyanocobalamin (Vitamin B-12) [Vitamin B-12] 1,000 mcg PO DAILY 11/28/17 Dorzolamide HCl [Trusopt 2% -] 1 drop OU TID 11/28/17 Latanoprost 0.005% Eye Drops [Xalatan 0.005% Eye Drops -] 1 drop OU HS 11/28/17 Pilocarpine 1% [Pilostat 1% -] 1 drop OU QID 11/28/17 Insulin Sliding Scale [Novolog Vial Sliding Scale -] 1 vial SQ HS units Ferrous Sulfate 7.5 ml PO DAILY 05/30/18 Omeprazole Pediatric Solution [Omeprazole Pediatric Oral Solution] 20 mg GT HS 05/30/18 Polyethylene Glycol 3350 [Glycolax] 17 gm PO DAILY 05/30/18 Timolol 0.25% [Timoptic 0.25%] 5 ml OD DAILY 05/30/18 Albuterol 2.5/Ipratropium 0.5 [Duoneb -] 1 amp NEB RTID amp 06/06/18 Amino Acids/Protein Hydrolys [Prosource No Carb Liquid Pkt] 30 ml GT BID@0800, 1730 packet 06/06/18 Ascorbic Acid [Vitamin C -] 500 mg PO BID tablet 06/06/18 Cefuroxime Axetil [Ceftin -] 250 mg PO BID #6 tablet 06/06/18 Collagenase Clostridium Hist. [Santyl -] 1 applic TP DAILY tube 06/06/18 Cyanocobalamin [Vitamin B12 -] 1,000 mcg GT DAILY tablet 06/06/18 Insulin (Levemir) [Levemir Vial] 10 units SQ AM units 06/06/18 Zinc Sulfate [Orazinc -] 220 mg PO BID capsule 06/06/18 Family Disease History - Family Disease History Family History: Unable to Obtain Review of Systems Unable to obtain ROS, reason: lethragic Physical Exam Vital Signs: Vital Signs Temperature 97.3 F L 07/05/18 12:48 Pulse Rate 63 07/05/18 12:48 Respiratory Rate 16 07/05/18 12:48 Blood Pressure 110/61 07/05/18 12:48 O2 Sat by Pulse Oximetry (%) 100 07/05/18 12:48 Constitutional: Yes: Mild Distress Eyes: Yes: Conjunctiva Clear Neck: Yes: Supple Cardiovascular: Yes: S1, S2 Respiratory: Yes: On Nasal O2, Wheezes Gastrointestinal: Yes: Soft, Other (peg) Renal/: Yes: Incontinence Musculoskeletal: Yes: Muscle Weakness Edema: No Integumentary: Yes: Skin Tear Neurological: Yes: Lethargy Labs: CBC, BMP 07/05/18 10:40 07/05/18 10:40 Laboratory Tests 06/04/18 06/06/18 07/04/18 06:00 06:15 18:00 Hgb 10.2 L Creatinine 1.9 H 1.8 H Urine Protein Ur Leukocyte Esterase 07/04/18 07/04/18 07/05/18 18:00 19:30 06:15 Hgb 10.2 L Creatinine 2.0 H Urine Protein 1+ H Ur Leukocyte Esterase 3+ H 07/05/18 07/05/18 07/05/18 06:15 10:40 10:40 Hgb 9.4 L Creatinine 1.8 H 1.7 H Urine Protein Ur Leukocyte Esterase Imaging - Results Chest X-ray: Report Reviewed Cat Scan: Report Reviewed Problem List - Problems (1) Dementia Code(s): F03.90 - UNSPECIFIED DEMENTIA WITHOUT BEHAVIORAL DISTURBANCE (2) CKD (chronic kidney disease) Code(s): N18.9 - CHRONIC KIDNEY DISEASE, UNSPECIFIED Assessment/Plan Current Medications Generic Name Dose Route Start Last Admin Trade Name Freq PRN Reason Stop Dose Admin Albuterol/Ipratropium 1 amp 07/05/18 20:00 Duoneb - NEB RTID [facility] Amino Acids 30 ml 07/05/18 17:30 Prosource No Carb Liquid Pkt GT BID@0800,1730 [facility] Aspirin 81 mg 07/06/18 10:00 Ecotrin - PO DAILY [facility] Brimonidine Tartrate 1 drop 07/05/18 22:00 Alphagan P 0.1% - OU TID [facility] Citalopram Hydrobromide 10 mg 07/06/18 10:00 Celexa - PO DAILY [facility] Collagenase 1 applic 07/06/18 10:00 Santyl - TP DAILY [facility] Protocol Dorzolamide HCl 1 drop 07/05/18 22:00 Trusopt 2% OU TID [facility] Ertapenem 0.5 gm/ Sodium 50 mls @ 50 mls/hr 07/06/18 10:00 Chloride IVPB DAILY [facility] Protocol Sodium Chloride 1,000 mls @ 42 mls/hr 07/05/18 15:22 Normal Saline - IV ASDIR [facility] Insulin Aspart 0 units 07/05/18 16:30 Novolog Vial SQ ACHS [facility] Protocol Latanoprost 1 drop 07/05/18 22:00 Xalatan 0.005% Eye Drops - OU HS [facility] Non-Formulary Medication 20 mg 07/05/18 22:00 Omeprazole Pediatric Solution GT HS [facility] Pilocarpine HCl 1 drop 07/05/18 18:00 Pilostat 1% - OU QID [facility] Polyethylene Glycol 17 gm 07/06/18 10:00 Miralax (For Bowel Prep) - PO DAILY [facility] Timolol Maleate 74.9625 drop 07/06/18 10:00 Timoptic 0.25% OD DAILY [facility] Impression 1. CKD 2. anemia 3. change in mental status 4. sepsis 5. DM 6. Parkinson's disease 7. Depression 8. UTI 9. hypothermia Plan - renal function not far from baseline - cont fluids - unclear if she was getting peg feeds - follow cultures - abx per ID
[2018-07-05] MEDS: SODIUM CHLORIDE 1,000 ML IV SCH (15:30)
[2018-07-05] MEDS ORDERED: INSULIN SLIDING SCALE (NOVOLOG) 1 VIAL SQ SCH (16:30)
[2018-07-05] MEDS ORDERED: AMINO ACIDS/PROTEIN HYDROLYS 30 ML LIQUID.PKT GT SCH (17:30)
[2018-07-05] MEDS: INSULIN SLIDING SCALE (NOVOLOG) 1 VIAL SQ SCH ×2 (17:42→22:30)
[2018-07-05] MEDS ORDERED: PILOCARPINE 1% OPHTHALMIC SOLUTION 15 ML BOTTLE OU SCH (18:00)
[2018-07-05] MEDS: PILOCARPINE 1% OPHTHALMIC SOLUTION 15 ML BOTTLE OU SCH ×2 (18:01→22:27)
[2018-07-05] MEDS: AMINO ACIDS/PROTEIN HYDROLYS 30 ML LIQUID.PKT GT SCH (18:01)
[2018-07-05] MEDS ORDERED: ALBUTEROL SO4 2.5/IPRATROPIUM 0.5 INH SOL 3 ML VIAL.NEB. NEB SCH (20:00)
[2018-07-05] MEDS: ALBUTEROL SO4 2.5/IPRATROPIUM 0.5 INH SOL 3 ML VIAL.NEB. NEB SCH (20:31)
[2018-07-05] MEDS ORDERED: PT OWN MED DRAWER 7, Y5N ONE (20:39)
[2018-07-05] MEDS ORDERED: LATANOPROST 0.005% OPHTH SOLN 2.5ML BOTTLE OU SCH (22:00)
[2018-07-05] MEDS ORDERED: BRIMONIDINE TARTRATE 0.1% OPHTHALMIC 5 ML BOTTLE OU SCH (22:00)
[2018-07-05] MEDS ORDERED: DORZOLAMIDE 2% HCL OPHTHALMIC SOLUTION 10 ML BOTTLE OU SCH (22:00)
[2018-07-05] MEDS ORDERED: PATIENT'S OWN MEDICATION (NON-FORMULARY) (Omeprazole Pediatric Solution 20 MG) GT SCH (22:00)
[2018-07-05] MEDS: BRIMONIDINE TARTRATE 0.1% OPHTHALMIC 5 ML BOTTLE OU SCH (22:24)
[2018-07-05] MEDS: DORZOLAMIDE 2% HCL OPHTHALMIC SOLUTION 10 ML BOTTLE OU SCH (22:25)
[2018-07-05] MEDS: LATANOPROST 0.005% OPHTH SOLN 2.5ML BOTTLE OU SCH (22:26)
[2018-07-05] MEDS: RANITIDINE HCL 150 MG/10 ML UNIT-DOSE GT SCH (22:27)
[2018-07-06] MEDS: BRIMONIDINE TARTRATE 0.1% OPHTHALMIC 5 ML BOTTLE OU SCH ×3 (05:21→22:38)
[2018-07-06] MEDS: DORZOLAMIDE 2% HCL OPHTHALMIC SOLUTION 10 ML BOTTLE OU SCH ×3 (05:21→22:38)
[2018-07-06] MEDS: SODIUM CHLORIDE 1,000 ML IV SCH ×2 (05:25→16:37)
[2018-07-06] MEDS: INSULIN SLIDING SCALE (NOVOLOG) 1 VIAL SQ SCH ×4 (06:02→22:37)
[2018-07-06] MEDS: ALBUTEROL SO4 2.5/IPRATROPIUM 0.5 INH SOL 3 ML VIAL.NEB. NEB SCH ×3 (07:15→19:25)
[2018-07-06 08:08] LABS: CALCIUM 8.3 mg/dL (8.5-10.1); CHLORIDE 112 mmol/L (98-107); SODIUM 142 mmol/L (136-145)
[2018-07-06 08:14] LABS: ALBUMIN 2.1 g/dl (3.4-5.0); ALK PHOS 117 U/L (45-117); ANION GAP 11 MMOL/L (8-16); BILIRUBIN,TOTAL 0.2 mg/dL (0.2-1.0); BLOOD UREA NITROGEN 60 mg/dL (7-18); CO2 19 mmol/L (21-32); CREATININE 1.6 mg/dL (0.55-1.02); GLUCOSE,RANDOM 177 mg/dL (74-106); SGOT/AST 45 U/L (15-37); SGPT/ALT 66 U/L (12-78); TOT PROT 5.8 g/dl (6.4-8.2)
[2018-07-06 08:18] LABS: BASO % 0.4 % (0-2.0); EOS % 1.3 % (0-4.5); HEMATOCRIT 29.1 % (32.4-45.2); HEMOGLOBIN 9.6 GM/dL (10.7-15.3); LYMPH % 7.1 % (8-40); MCH 31.2 pg (25.7-33.7); MCHC 32.9 g/dl (32.0-36.0); MEAN CELL VOLUME 94.8 fl (80-96); MEAN PLT VOLUME 7.7 fl (7.5-11.1); MONO % 3.8 % (3.8-10.2); NEUT % 87.4 % (42.8-82.8); PLATELET COUNT 192 K/MM3 (134-434); RBC 3.07 M/mm3 (3.60-5.2); RDW 13.5 % (11.6-15.6); WHITE BLOOD COUNT 7.8 K/mm3 (4.0-10.0)
[2018-07-06] MEDS ORDERED: ASPIRIN COATED 81 MG TABLET.EC PO SCH (10:00)
[2018-07-06] MEDS ORDERED: TIMOLOL 0.25% OPHTHALMIC SOL 5 ML BOTTLE OD SCH (10:00)
[2018-07-06] MEDS ORDERED: CITALOPRAM HYDROBROMIDE 10 MG TABLET (FP) PO SCH (10:00)
[2018-07-06] MEDS ORDERED: COLLAGENASE CLOSTRIDIUM HIST. 30 GRAMS TUBE TP SCH (10:00)
[2018-07-06] MEDS ORDERED: POLYETHYLENE GLYCOL 3350 255 GM BTL PO SCH (10:00)
--- NOTE | 2018-07-06 10:26 | PN ---
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 (short form) - Note 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: awake and babbling NAD Vital Signs Period Temp Pulse Resp BP Sys/Rose Pulse Ox Last 24 Hr 97.1 F-98.1 F 58-69 16-18 109-151/51-72 100-100 cor-rrr llungs clear abd soft,nt +GT ext toe with necrotic tip/heel ulcer CBC, BMP 07/06/18 06:00 07/06/18 06:00 Microbiology 07/04/18 18:00 Blood - Peripheral Venous Blood Culture - Preliminary NO GROWTH OBTAINED AFTER 24 HOURS, INCUBATION TO CONTINUE FOR 4 DAYS. 07/04/18 18:00 Blood - Peripheral Venous Blood Culture - Preliminary NO GROWTH OBTAINED AFTER 24 HOURS, INCUBATION TO CONTINUE FOR 4 DAYS. a/p probable UTI heel/toe ulcer continue ertapenem, f/u cultures consider wound care eval of the foot Problem List - Problems (1) Altered mental status Code(s): R41.82 - ALTERED MENTAL STATUS, UNSPECIFIED Qualifiers: Altered mental status type: unspecified Qualified Code(s): R41.82 - Altered mental status, unspecified (2) UTI (urinary tract infection) Code(s): N39.0 - URINARY TRACT INFECTION, SITE NOT SPECIFIED Qualifiers: Urinary tract infection type: site unspecified Hematuria presence: without hematuria Qualified Code(s): N39.0 - Urinary tract infection, site not specified (3) Heel ulcer Code(s): L97.409 - NON-PRS CHRONIC ULCER OF UNSP HEEL AND MIDFOOT W UNSP SEVERT (4) Dementia Code(s): F03.90 - UNSPECIFIED DEMENTIA WITHOUT BEHAVIORAL DISTURBANCE (5) MDRO (multiple drug resistant organisms) resistance Code(s): Z16.35 - RESISTANCE TO MULTIPLE ANTIMICROBIAL DRUGS
[2018-07-06] MEDS ORDERED: morphine CARPU-JECT 2 MG/1 ML DISP.SYRIN IVPUSH PRN (10:27)
--- NOTE | 2018-07-06 10:35 | PN ---
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, Physician Chief Complaint: NOTIFIED BY NURSE THAT STOOL CONTENT IS BACKING UP INTO GTUBE MILD DISTRESS EVENTS AND NOTES REVIEWED - Current Medication List Current Medications: Active Medications Albuterol/Ipratropium (Duoneb -) 1 amp NEB RTID [facility] Last Admin: 07/06/18 07:15 Dose: 1 amp Amino Acids (Prosource No Carb Liquid Pkt) 30 ml GT BID@0800,1730 [facility] Last Admin: 07/05/18 18:01 Dose: 30 ml Aspirin (Ecotrin -) 81 mg PO DAILY [facility] Brimonidine Tartrate (Alphagan P 0.1% -) 1 drop OU TID [facility] Last Admin: 07/06/18 05:21 Dose: 1 drop Citalopram Hydrobromide (Celexa -) 10 mg PO DAILY [facility] Collagenase (Santyl -) 1 applic TP DAILY [facility]; Protocol Dorzolamide HCl (Trusopt 2%) 1 drop OU TID [facility] Last Admin: 07/06/18 05:21 Dose: 1 drop Ertapenem 0.5 gm/ Sodium (Chloride) 50 mls @ 50 mls/hr IVPB DAILY [facility]; Protocol Sodium Chloride (Normal Saline -) 1,000 mls @ 42 mls/hr IV ASDIR [facility] Last Admin: 07/06/18 05:25 Dose: 42 mls/hr Insulin Aspart (Novolog Vial Sliding Scale -) 1 vial SQ ACHS [facility]; Protocol Last Admin: 07/06/18 06:02 Dose: Not Given Latanoprost (Xalatan 0.005% Eye Drops -) 1 drop OU HS [facility] Last Admin: 07/05/18 22:26 Dose: 1 drop Morphine Sulfate (Morphine Injection -) 1 mg IVPUSH Q4H PRN PRN Reason: PAIN LEVEL 7 - 10 Pilocarpine HCl (Pilostat 1% -) 1 drop OU QID [facility] Last Admin: 07/05/18 22:27 Dose: 1 drop Polyethylene Glycol (Miralax (For Daily Use) -) 17 gm PO DAILY [facility] Ranitidine HCl (Zantac Oral Solution -) 150 mg GT BID [facility] Last Admin: 07/05/18 22:27 Dose: 150 mg Timolol Maleate (Timoptic 0.25%) 1 drop OD DAILY [facility] - Objective Vital Signs: Vital Signs Temperature 97.6 F 07/06/18 05:57 Pulse Rate 68 07/06/18 05:57 Respiratory Rate 18 07/06/18 05:57 Blood Pressure 151/72 07/06/18 05:57 O2 Sat by Pulse Oximetry (%) 100 07/05/18 21:00 Constitutional: Yes: Mild Distress Cardiovascular: Yes: WNL Respiratory: Yes: WNL Gastrointestinal: Yes: Soft, Other (GTUBE DARK STOOL IN GTUBE) Genitourinary: Yes: Incontinence Musculoskeletal: Yes: Muscle Weakness Extremities: Yes: Other Edema: No Peripheral Pulses WNL: Yes Integumentary: Yes: Pressure Ulcer Wound/Incision: Yes: Dressing Dry and Intact (HEELS) Neurological: Yes: Confusion, Pre-Existing Deficit, Unsteady Gait, Weakness ...Motor Strength: LLE, RLE Psychiatric: Yes: Other Labs: CBC, BMP 07/06/18 06:00 07/06/18 06:00 INR, PTT INR 0.89 (0.83-1.09) 07/04/18 18:00 Problem List - Problems (1) Attention to G-tube Code(s): Z43.1 - ENCOUNTER FOR ATTENTION TO GASTROSTOMY (2) Dementia Code(s): F03.90 - UNSPECIFIED DEMENTIA WITHOUT BEHAVIORAL DISTURBANCE (3) Heel ulcer Code(s): L97.409 - NON-PRS CHRONIC ULCER OF UNSP HEEL AND MIDFOOT W UNSP SEVERT (4) MDRO (multiple drug resistant organisms) resistance Code(s): Z16.35 - RESISTANCE TO MULTIPLE ANTIMICROBIAL DRUGS (5) Sepsis Code(s): A41.9 - SEPSIS, UNSPECIFIED ORGANISM Qualifiers: Sepsis type: sepsis due to unspecified organism Qualified Code(s): A41.9 - Sepsis, unspecified organism (6) UTI (urinary tract infection) Code(s): N39.0 - URINARY TRACT INFECTION, SITE NOT SPECIFIED Qualifiers: Urinary tract infection type: site unspecified Hematuria presence: without hematuria Qualified Code(s): N39.0 - Urinary tract infection, site not specified (7) Altered mental status Code(s): R41.82 - ALTERED MENTAL STATUS, UNSPECIFIED Qualifiers: Altered mental status type: unspecified Qualified Code(s): R41.82 - Altered mental status, unspecified (8) ESBL (extended spectrum beta-lactamase) producing bacteria infection Code(s): A49.9 - BACTERIAL INFECTION, UNSPECIFIED; Z16.12 - EXTENDED SPECTRUM BETA LACTAMASE (ESBL) RESISTANCE (9) Parkinson disease Code(s): G20 - PARKINSON'S DISEASE (10) Severe protein-calorie malnutrition Code(s): E43 - UNSPECIFIED SEVERE PROTEIN-CALORIE MALNUTRITION Assessment/Plan CHECK ABD XRAY BEDSIDE CHECK LABS PAIN CONTROL WOUND CARE TO HEEL ULCERS STOP GTUBE FEEDS TRIAL DYSPHAGIA PUREE DIET PLAN D/W NURSE
[2018-07-06] MEDS: AMINO ACIDS/PROTEIN HYDROLYS 30 ML LIQUID.PKT GT SCH ×2 (12:24→18:46)
[2018-07-06] MEDS: ERTAPENEM SODIUM 0.5 GM in SODIUM CHLORIDE 50 ML IVPB SCH (12:26)
[2018-07-06] MEDS: PILOCARPINE 1% OPHTHALMIC SOLUTION 15 ML BOTTLE OU SCH ×4 (12:51→22:38)
[2018-07-06 13:42] VITALS: BMI 17.9
[2018-07-06] MEDS: POLYETHYLENE GLYCOL 3350 119 GM BTL PO SCH (13:53)
[2018-07-06] MEDS: TIMOLOL 0.25% OPHTHALMIC SOL 5 ML BOTTLE OD SCH (13:54)
[2018-07-06] MEDS: RANITIDINE HCL 150 MG/10 ML UNIT-DOSE GT SCH ×2 (15:16→22:37)
[2018-07-06] MEDS ORDERED: PT OWN MED DRAWER 7, Y5N ONE (15:17)
[2018-07-06] MEDS: ASPIRIN COATED 81 MG TABLET.EC PO SCH (15:20)
[2018-07-06] MEDS: CITALOPRAM HYDROBROMIDE 10 MG TABLET (FP) PO SCH (15:21)
--- NOTE | 2018-07-06 16:10 | PN ---
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 (short form) - Note 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: RENAL Pt being fed by nurse comfortable awake but not interactive has a peg which is draining some brownish material no edema Last Vital Signs Temp Pulse Resp BP Pulse Ox 97.5 F L 60 20 146/84 100 07/06/18 13:50 07/06/18 13:50 07/06/18 13:50 07/06/18 13:50 07/05/18 21:00 CBC, BMP 07/06/18 06:00 07/06/18 06:00 Current Medications Generic Name Dose Route Start Last Admin Trade Name Elo PRN Reason Stop Dose Admin Albuterol/Ipratropium 1 amp 07/05/18 20:00 07/06/18 14:58 Duoneb - NEB Not Given RTID [facility] Amino Acids 30 ml 07/05/18 17:30 07/06/18 12:24 Prosource No Carb Liquid Pkt GT Not Given BID@0800,1730 [facility] Aspirin 81 mg 07/06/18 10:00 07/06/18 15:20 Ecotrin - PO 81 mg DAILY [facility] Administration Brimonidine Tartrate 1 drop 07/05/18 22:00 07/06/18 15:22 Alphagan P 0.1% - OU 1 drop TID [facility] Administration Citalopram Hydrobromide 10 mg 07/06/18 10:00 07/06/18 15:21 Celexa - PO 10 mg DAILY [facility] Administration Collagenase 1 applic 07/06/18 10:00 Santyl - TP DAILY [facility] Protocol Dorzolamide HCl 1 drop 07/05/18 22:00 07/06/18 15:21 Trusopt 2% OU 1 drop TID [facility] Administration Ertapenem 0.5 gm/ Sodium 50 mls @ 50 mls/hr 07/06/18 10:00 07/06/18 12:26 Chloride IVPB 50 mls/hr DAILY [facility] Administration Protocol Sodium Chloride 1,000 mls @ 42 mls/hr 07/05/18 15:22 07/06/18 05:25 Normal Saline - IV 42 mls/hr ASDIR [facility] Administration Insulin Aspart 1 vial 07/05/18 16:30 07/06/18 13:15 Novolog Vial Sliding Scale - SQ Not Given ACHS [facility] Protocol Latanoprost 1 drop 07/05/18 22:00 07/05/18 22:26 Xalatan 0.005% Eye Drops - OU 1 drop HS [facility] Administration Morphine Sulfate 1 mg 07/06/18 10:27 Morphine Injection - IVPUSH Q4H PRN PAIN LEVEL 7 - 10 Pilocarpine HCl 1 drop 07/05/18 18:00 07/06/18 15:26 Pilostat 1% - OU 1 drop QID [facility] Administration Polyethylene Glycol 17 gm 07/06/18 10:00 07/06/18 13:53 Miralax (For Daily Use) - PO Not Given DAILY [facility] Ranitidine HCl 150 mg 07/05/18 22:00 07/06/18 15:16 Zantac Oral Solution - GT Not Given BID [facility] Timolol Maleate 1 drop 07/06/18 10:00 07/06/18 13:54 Timoptic 0.25% OD Not Given DAILY [facility] Impression 1. CKDAKI improving 2. anemia 3. change in mental status 4. sepsis 5. DM 6. Parkinson's disease 7. Depression 8. UTI 9. hypothermia Plan -guaiac stools -keep on h2 macey -antibiotics -continue ivf MV
[2018-07-06] MEDS: AMINO ACIDS/PROTEIN HYDROLYS 30 ML LIQUID.PKT PO SCH (18:46)
[2018-07-06] MEDS: COLLAGENASE CLOSTRIDIUM HIST. 30 GRAMS TUBE TP SCH (18:46)
[2018-07-06] MEDS: MORPHINE SULFATE 2 MG/ML VIAL IVPUSH PRN (22:36)
[2018-07-06] MEDS: LATANOPROST 0.005% OPHTH SOLN 2.5ML BOTTLE OU SCH (23:00)
[2018-07-07] MEDS: INSULIN SLIDING SCALE (NOVOLOG) 1 VIAL SQ SCH ×4 (06:14→21:15)
[2018-07-07] MEDS: BRIMONIDINE TARTRATE 0.1% OPHTHALMIC 5 ML BOTTLE OU SCH ×3 (06:14→21:14)
[2018-07-07] MEDS: DORZOLAMIDE 2% HCL OPHTHALMIC SOLUTION 10 ML BOTTLE OU SCH ×3 (06:14→21:16)
[2018-07-07] MEDS: SODIUM CHLORIDE 1,000 ML IV SCH ×2 (06:32→15:26)
[2018-07-07] MEDS: ALBUTEROL SO4 2.5/IPRATROPIUM 0.5 INH SOL 3 ML VIAL.NEB. NEB SCH ×3 (08:40→20:39)
--- NOTE | 2018-07-07 09:57 | PN ---
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, Physician Chief Complaint: TOLERATING PO DIET DYSPHAGIA PRECAUTIONS CONFUSED WITH DEMENTIA - Current Medication List Current Medications: Active Medications Albuterol/Ipratropium (Duoneb -) 1 amp NEB RTID [facility] Last Admin: 07/07/18 08:40 Dose: 1 amp Amino Acids (Prosource No Carb Liquid Pkt) 30 ml GT BID@0800,1730 [facility] Last Admin: 07/06/18 18:46 Dose: 30 ml Amino Acids (Prosource No Carb Liquid Pkt) 30 ml PO BID@0800,1730 [facility] Last Admin: 07/06/18 18:46 Dose: Not Given Aspirin (Ecotrin -) 81 mg PO DAILY [facility] Last Admin: 07/06/18 15:20 Dose: 81 mg Brimonidine Tartrate (Alphagan P 0.1% -) 1 drop OU TID [facility] Last Admin: 07/07/18 06:14 Dose: 1 drop Citalopram Hydrobromide (Celexa -) 10 mg PO DAILY [facility] Last Admin: 07/06/18 15:21 Dose: 10 mg Collagenase (Santyl -) 1 applic TP DAILY [facility]; Protocol Last Admin: 07/06/18 18:46 Dose: 1 applic Dorzolamide HCl (Trusopt 2%) 1 drop OU TID [facility] Last Admin: 07/07/18 06:14 Dose: 1 drop Ertapenem 0.5 gm/ Sodium (Chloride) 50 mls @ 50 mls/hr IVPB DAILY [facility]; Protocol Last Admin: 07/06/18 12:26 Dose: 50 mls/hr Sodium Chloride (Normal Saline -) 1,000 mls @ 42 mls/hr IV ASDIR [facility] Last Admin: 07/07/18 06:32 Dose: 42 mls/hr Insulin Aspart (Novolog Vial Sliding Scale -) 1 vial SQ ACHS [facility]; Protocol Last Admin: 07/07/18 06:14 Dose: Not Given Latanoprost (Xalatan 0.005% Eye Drops -) 1 drop OU HS [facility] Last Admin: 07/06/18 23:00 Dose: 1 drop Morphine Sulfate (Morphine Sulfate) 1 mg IVPUSH Q4H PRN PRN Reason: PAIN LEVEL 7 - 10 Last Admin: 07/06/18 22:36 Dose: 1 mg Multivitamins/Minerals/Vitamin C (Tab-A-Vit -) 1 tab PO DAILY [facility] Pilocarpine HCl (Pilostat 1% -) 1 drop OU QID [facility] Last Admin: 07/06/18 22:38 Dose: 1 drop Polyethylene Glycol (Miralax (For Daily Use) -) 17 gm PO DAILY [facility] Last Admin: 07/06/18 13:53 Dose: Not Given Ranitidine HCl (Zantac Oral Solution -) 150 mg GT BID [facility] Last Admin: 07/06/18 22:37 Dose: Not Given Timolol Maleate (Timoptic 0.25%) 1 drop OD DAILY [facility] Last Admin: 07/06/18 13:54 Dose: Not Given - Objective Vital Signs: Vital Signs Temperature 97.5 F L 07/07/18 05:00 Pulse Rate 68 07/07/18 05:00 Respiratory Rate 22 07/07/18 05:00 Blood Pressure 148/71 07/07/18 05:00 O2 Sat by Pulse Oximetry (%) 95 07/06/18 21:00 Constitutional: Yes: Other Cardiovascular: Yes: Pulse Irregular Respiratory: Yes: WNL Gastrointestinal: Yes: Normal Bowel Sounds, Soft Genitourinary: Yes: Incontinence Musculoskeletal: Yes: Muscle Weakness Extremities: Yes: Other Edema: No Integumentary: Yes: Pressure Ulcer, Rash, Skin Tear (LEFT FOOT), Venous Stasis Changes Wound/Incision: Yes: Dressing Dry and Intact Neurological: Yes: Confusion, Weakness ...Motor Strength: LLE, RUE, RLE Psychiatric: Yes: Other Labs: CBC, BMP 07/06/18 06:00 07/06/18 06:00 INR, PTT INR 0.89 (0.83-1.09) 07/04/18 18:00 Problem List - Problems (1) Attention to G-tube Code(s): Z43.1 - ENCOUNTER FOR ATTENTION TO GASTROSTOMY (2) Dementia Code(s): F03.90 - UNSPECIFIED DEMENTIA WITHOUT BEHAVIORAL DISTURBANCE (3) Heel ulcer Code(s): L97.409 - NON-PRS CHRONIC ULCER OF UNSP HEEL AND MIDFOOT W UNSP SEVERT (4) MDRO (multiple drug resistant organisms) resistance Code(s): Z16.35 - RESISTANCE TO MULTIPLE ANTIMICROBIAL DRUGS (5) Sepsis Code(s): A41.9 - SEPSIS, UNSPECIFIED ORGANISM Qualifiers: Sepsis type: sepsis due to unspecified organism Qualified Code(s): A41.9 - Sepsis, unspecified organism (6) UTI (urinary tract infection) Code(s): N39.0 - URINARY TRACT INFECTION, SITE NOT SPECIFIED Qualifiers: Urinary tract infection type: site unspecified Hematuria presence: without hematuria Qualified Code(s): N39.0 - Urinary tract infection, site not specified (7) Altered mental status Code(s): R41.82 - ALTERED MENTAL STATUS, UNSPECIFIED Qualifiers: Altered mental status type: unspecified Qualified Code(s): R41.82 - Altered mental status, unspecified (8) ESBL (extended spectrum beta-lactamase) producing bacteria infection Code(s): A49.9 - BACTERIAL INFECTION, UNSPECIFIED; Z16.12 - EXTENDED SPECTRUM BETA LACTAMASE (ESBL) RESISTANCE (9) Parkinson disease Code(s): G20 - PARKINSON'S DISEASE (10) Severe protein-calorie malnutrition Code(s): E43 - UNSPECIFIED SEVERE PROTEIN-CALORIE MALNUTRITION Assessment/Plan CONTINUE FEEDING BY MOUTH ABD SOFT , WILL NOT ORDER CT SCAN AT THIS TIME PATIENT IS DNI, WILL BE CONSERVATIVE AND MONITOR AT THIS TIME CHECK LABS WOUND CARE LEFT FOOT GI F/U FOR GTUBE MALFUNCTION VS BILIARY ASPIRATION
[2018-07-07] MEDS: AMINO ACIDS/PROTEIN HYDROLYS 30 ML LIQUID.PKT GT SCH ×2 (10:31→17:46)
[2018-07-07] MEDS: AMINO ACIDS/PROTEIN HYDROLYS 30 ML LIQUID.PKT PO SCH ×2 (10:31→17:46)
[2018-07-07] MEDS: POLYETHYLENE GLYCOL 3350 119 GM BTL PO SCH (10:32)
[2018-07-07] MEDS: COLLAGENASE CLOSTRIDIUM HIST. 30 GRAMS TUBE TP SCH (10:32)
[2018-07-07] MEDS: PILOCARPINE 1% OPHTHALMIC SOLUTION 15 ML BOTTLE OU SCH ×4 (10:32→21:15)
[2018-07-07] MEDS: ERTAPENEM SODIUM 0.5 GM in SODIUM CHLORIDE 50 ML IVPB SCH (10:32)
--- NOTE | 2018-07-07 10:32 | PN ---
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 (short form) - Note 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: RENAL comfortable awake but not interactive, lorri has a peg which is draining some brownish material no edema Last Vital Signs Temp Pulse Resp BP Pulse Ox 97.5 F L 68 22 148/71 95 07/07/18 05:00 07/07/18 05:00 07/07/18 05:00 07/07/18 05:00 07/06/18 21:00 lungs clear cvs s1s2 rr abd soft ext no edema neuro- moaningnot responding CBC, BMP 07/06/18 06:00 07/06/18 06:00 Current Medications Generic Name Dose Route Start Last Admin Trade Name Freq PRN Reason Stop Dose Admin Albuterol/Ipratropium 1 amp 07/05/18 20:00 07/07/18 08:40 Duoneb - NEB 1 amp RTID [facility] Administration Amino Acids 30 ml 07/05/18 17:30 07/06/18 18:46 Prosource No Carb Liquid Pkt GT 30 ml BID@0800,1730 [facility] Administration Amino Acids 30 ml 07/06/18 17:30 07/06/18 18:46 Prosource No Carb Liquid Pkt PO Not Given BID@0800,1730 [facility] Aspirin 81 mg 07/06/18 10:00 07/06/18 15:20 Ecotrin - PO 81 mg DAILY [facility] Administration Brimonidine Tartrate 1 drop 07/05/18 22:00 07/07/18 06:14 Alphagan P 0.1% - OU 1 drop TID [facility] Administration Citalopram Hydrobromide 10 mg 07/06/18 10:00 07/06/18 15:21 Celexa - PO 10 mg DAILY [facility] Administration Collagenase 1 applic 07/06/18 10:00 07/06/18 18:46 Santyl - TP 1 applic DAILY [facility] Administration Protocol Dorzolamide HCl 1 drop 07/05/18 22:00 07/07/18 06:14 Trusopt 2% OU 1 drop TID [facility] Administration Ertapenem 0.5 gm/ Sodium 50 mls @ 50 mls/hr 07/06/18 10:00 07/06/18 12:26 Chloride IVPB 50 mls/hr DAILY [facility] Administration Protocol Sodium Chloride 1,000 mls @ 42 mls/hr 07/05/18 15:22 07/07/18 06:32 Normal Saline - IV 42 mls/hr ASDIR [facility] Administration Insulin Aspart 1 vial 07/05/18 16:30 07/07/18 06:14 Novolog Vial Sliding Scale - SQ Not Given ACHS [facility] Protocol Latanoprost 1 drop 07/05/18 22:00 07/06/18 23:00 Xalatan 0.005% Eye Drops - OU 1 drop HS [facility] Administration Morphine Sulfate 1 mg 07/06/18 22:23 07/06/18 22:36 Morphine Sulfate IVPUSH 1 mg Q4H PRN Administration PAIN LEVEL 7 - 10 Multivitamins/Minerals/Vitamin C 1 tab 07/07/18 10:00 Tab-A-Vit - PO DAILY [facility] Pilocarpine HCl 1 drop 07/05/18 18:00 07/06/18 22:38 Pilostat 1% - OU 1 drop QID [facility] Administration Polyethylene Glycol 17 gm 07/06/18 10:00 07/06/18 13:53 Miralax (For Daily Use) - PO Not Given DAILY [facility] Ranitidine HCl 150 mg 07/05/18 22:00 07/06/18 22:37 Zantac Oral Solution - GT Not Given BID [facility] Timolol Maleate 1 drop 07/06/18 10:00 07/06/18 13:54 Timoptic 0.25% OD Not Given DAILY [facility] Impression 1. CKDAKI improving 2. anemia 3. change in mental status 4. sepsis 5. DM 6. Parkinson's disease 7. Depression 8. UTI 9. hypothermia Plan -guaiac stools -keep on h2 macey -antibiotics -continue ivf -agree with conservative management MV
[2018-07-07] MEDS: TIMOLOL 0.25% OPHTHALMIC SOL 5 ML BOTTLE OD SCH (10:34)
[2018-07-07] MEDS: ASPIRIN COATED 81 MG TABLET.EC PO SCH (10:42)
[2018-07-07] MEDS: CITALOPRAM HYDROBROMIDE 10 MG TABLET (FP) PO SCH (10:42)
[2018-07-07] MEDS: MULTIVITAMINS (DAILY MVI) TABLET (FP) PO SCH (10:42)
[2018-07-07] MEDS: RANITIDINE HCL 150 MG/10 ML UNIT-DOSE GT SCH ×2 (10:43→21:16)
[2018-07-07 11:33] LABS: HEMATOCRIT 26.1 % (32.4-45.2); HEMOGLOBIN 8.7 GM/dL (10.7-15.3); MCH 31.8 pg (25.7-33.7); MCHC 33.3 g/dl (32.0-36.0); MEAN CELL VOLUME 95.3 fl (80-96); MEAN PLT VOLUME 7.3 fl (7.5-11.1); PLATELET COUNT 202 K/MM3 (134-434); RBC 2.74 M/mm3 (3.60-5.2); RDW 13.9 % (11.6-15.6); WHITE BLOOD COUNT 7.6 K/mm3 (4.0-10.0)
[2018-07-07 12:03] LABS: ANION GAP 9 MMOL/L (8-16); BILIRUBIN,TOTAL 0.1 mg/dL (0.2-1.0); BLOOD UREA NITROGEN 50 mg/dL (7-18); CHLORIDE 112 mmol/L (98-107); CO2 19 mmol/L (21-32); CREATININE 2.1 mg/dL (0.55-1.02); GLUCOSE,RANDOM 286 mg/dL (74-106); POTASSIUM 4.3 mmol/L (3.5-5.1); SGOT/AST 29 U/L (15-37); SGPT/ALT 56 U/L (12-78); SODIUM 140 mmol/L (136-145); TOT PROT 5.6 g/dl (6.4-8.2)
[2018-07-07 12:04] LABS: ALK PHOS 106 U/L (45-117)
--- NOTE | 2018-07-07 12:22 | CON.GI ---
Consult Consult Specialty:: GI: Dr. Garces covering for Dr. Schulz who resumes care Referred by:: Dr. Santos Reason for Consultation:: Abnormal G-Tube study - History of Present Illness Chief Complaint: Patient non-verbal, does not give history History of Present Illness: 67F admitted from [place] for evaluation of altered mental status. Asked to evaluate G-Tube. A G-Tube study was performed yesterday to "evaluate for a fistula" given that Ms. Harp has been having more frequent bowel movements. The nurse was also concerned that there was stool within the tube of the G- Tube. PEG was placed 11/[address] Schulz. G-Tube study yesterday shows contrast filling the stomach but there was also contrast in the LUQ noted as well outside of the stomach of unclear etiology. Th nurse is concerned because she has hyperactive bowel sounds and his been having more frequent soft bowel movements. 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: Dementia, Parkinson's Cardio/Vascular: Yes: Hyperlipdemia Renal/: Yes: Renal Failure (chronic stage 4 ), Renal Inusuff ...: No Psych: Yes: Depression Endocrine: Yes: Diabetes Mellitus Additional Medical History: Glaucoma - Past Surgical History Additional Surgical History: PEG 11/29 - Alcohol/Substance Use Hx Alcohol Use: No (unknown) History of Substance Use: reports: None - Smoking History Smoking history: Unknown if ever smoked Have you smoked in the past 12 months: No - Social History ADL: Support Services History of Recent Travel: No Home Medications - Allergies Allergies/Adverse Reactions: Allergies Allergy/AdvReac Type Severity Reaction Status Date / Time No Known Allergies Allergy Verified 11/28/17 11:40 - Home Medications Home Medications: Ambulatory Orders Aspirin [Aspirin EC] 81 mg PO DAILY 11/28/17 Brimonidine Tartrate [Alphagan P 0.1% -] 1 drop OU TID 11/28/17 Calcium Carbonate/Vitamin D3 [Calcium 500-Vit D3 200 Caplet] 1 each PO DAILY Citalopram Hydrobromide [Celexa -] 10 mg PO DAILY 11/28/17 Cyanocobalamin (Vitamin B-12) [Vitamin B-12] 1,000 mcg PO DAILY 11/28/17 Dorzolamide HCl [Trusopt 2% -] 1 drop OU TID 11/28/17 Latanoprost 0.005% Eye Drops [Xalatan 0.005% Eye Drops -] 1 drop OU HS 11/28/17 Pilocarpine 1% [Pilostat 1% -] 1 drop OU QID 11/28/17 Insulin Sliding Scale [Novolog Vial Sliding Scale -] 1 vial SQ HS units Ferrous Sulfate 7.5 ml PO DAILY 05/30/18 Omeprazole Pediatric Solution [Omeprazole Pediatric Oral Solution] 20 mg GT HS 05/30/18 Polyethylene Glycol 3350 [Glycolax] 17 gm PO DAILY 05/30/18 Timolol 0.25% [Timoptic 0.25%] 5 ml OD DAILY 05/30/18 Albuterol 2.5/Ipratropium 0.5 [Duoneb -] 1 amp NEB RTID amp 06/06/18 Amino Acids/Protein Hydrolys [Prosource No Carb Liquid Pkt] 30 ml GT BID@0800, 1730 packet 06/06/18 Ascorbic Acid [Vitamin C -] 500 mg PO BID tablet 06/06/18 Cefuroxime Axetil [Ceftin -] 250 mg PO BID #6 tablet 06/06/18 Collagenase Clostridium Hist. [Santyl -] 1 applic TP DAILY tube 06/06/18 Cyanocobalamin [Vitamin B12 -] 1,000 mcg GT DAILY tablet 06/06/18 Insulin (Levemir) [Levemir Vial] 10 units SQ AM units 06/06/18 Zinc Sulfate [Orazinc -] 220 mg PO BID capsule 06/06/18 Family Disease History - Family Disease History Family History: Unable to Obtain Review of Systems - Review of Systems Constitutional: denies: Fever (None reported) Gastrointestinal: denies: Melena, Rectal Bleeding Physical Exam-GI Vital Signs: Vital Signs Temperature 98 F 07/07/18 09:00 Pulse Rate 77 07/07/18 09:00 Respiratory Rate 18 07/07/18 09:00 Blood Pressure 119/57 07/07/18 09:00 O2 Sat by Pulse Oximetry (%) 95 07/07/18 09:00 Constitutional: Yes: Calm Eyes: No: Sclera Icterus Cardiovascular: Yes: Regular Rate and Rhythm Respiratory: Yes: Diminished (at bases b/l. Poor insp effort) Gastrointestinal Inspection: Yes: Other (G-Tube in place in LUQ. There was a dressing undernreath the external bolster. there is no phoenix-per induration/ erythema/discharge. The G-Tube rotated freely. The tube of the PEG contained dark material. 500cc sterile water lavage performed yielding gastric contents and bile.). No: Distention ...Auscultate: Yes: Hyperactive Bowel Sounds ...Palpate: No: Tenderness (No grimacing upon palpation) ...Percussion: No: Tympanitic Edema: No (No LE edema) Labs: CBC, BMP 07/07/18 11:15 07/07/18 11:15 INR, PTT INR 0.89 (0.83-1.09) 07/04/18 18:00 Hepatic Panel Total Bilirubin 0.1 mg/dL (0.2-1.0) L 07/07/18 11:15 AST 29 U/L (15-37) 07/07/18 11:15 ALT 56 U/L (12-78) 07/07/18 11:15 Alkaline Phosphatase 106 U/L (45-117) D 07/07/18 11:15 Albumin 2.0 g/dl (3.4-5.0) L 07/07/18 11:15 Imaging - Results X-ray: Report Reviewed Problem List - Problems (1) Abnormal x-ray of abdomen Assessment/Plan: ? extravasation of some contrast from recent G-Tube study. Abdominal exam benign The discolored material in the G-tube likely from previous tube feed stasis / meds Advise: NPO CT scan of the abdomen and pelvis with contrast through G-Tube position ID following Code(s): R93.5 - ABN FINDINGS ON DX IMAGING OF ABD REGIONS, INC RETROPERITON (2) Diarrhea Assessment/Plan: ordered stool for C. Diff Code(s): R19.7 - DIARRHEA, UNSPECIFIED
[2018-07-07] MEDS ORDERED: DEXTROSE 5%-NORMAL SALINE 1,000 ML IV SCH (17:45)
[2018-07-07] MEDS: LATANOPROST 0.005% OPHTH SOLN 2.5ML BOTTLE OU SCH (21:16)
[2018-07-07] MEDS: MORPHINE SULFATE 2 MG/ML VIAL IVPUSH PRN (21:26)
[2018-07-08] MEDS: INSULIN SLIDING SCALE (NOVOLOG) 1 VIAL SQ SCH ×4 (06:28→22:15)
[2018-07-08] MEDS: BRIMONIDINE TARTRATE 0.1% OPHTHALMIC 5 ML BOTTLE OU SCH ×3 (06:28→22:14)
[2018-07-08] MEDS: DORZOLAMIDE 2% HCL OPHTHALMIC SOLUTION 10 ML BOTTLE OU SCH ×3 (06:28→22:14)
[2018-07-08] MEDS: MORPHINE SULFATE 2 MG/ML VIAL IVPUSH PRN ×2 (06:38→22:11)
[2018-07-08] MEDS: ALBUTEROL SO4 2.5/IPRATROPIUM 0.5 INH SOL 3 ML VIAL.NEB. NEB SCH ×3 (07:20→21:14)
[2018-07-08] MEDS: AMINO ACIDS/PROTEIN HYDROLYS 30 ML LIQUID.PKT PO SCH ×2 (08:55→16:39)
[2018-07-08] MEDS: AMINO ACIDS/PROTEIN HYDROLYS 30 ML LIQUID.PKT GT SCH ×2 (08:55→16:39)
[2018-07-08] MEDS: ASPIRIN COATED 81 MG TABLET.EC PO SCH (09:22)
[2018-07-08] MEDS: CITALOPRAM HYDROBROMIDE 10 MG TABLET (FP) PO SCH (09:22)
[2018-07-08] MEDS: PILOCARPINE 1% OPHTHALMIC SOLUTION 15 ML BOTTLE OU SCH ×4 (09:23→22:14)
[2018-07-08] MEDS: COLLAGENASE CLOSTRIDIUM HIST. 30 GRAMS TUBE TP SCH (09:24)
[2018-07-08] MEDS: POLYETHYLENE GLYCOL 3350 119 GM BTL PO SCH (09:25)
[2018-07-08] MEDS: TIMOLOL 0.25% OPHTHALMIC SOL 5 ML BOTTLE OD SCH (09:26)
[2018-07-08] MEDS: RANITIDINE HCL 150 MG/10 ML UNIT-DOSE GT SCH ×2 (09:27→22:11)
[2018-07-08] MEDS: MULTIVITAMINS (DAILY MVI) TABLET (FP) PO SCH (09:46)
[2018-07-08] MEDS: ERTAPENEM SODIUM 0.5 GM in SODIUM CHLORIDE 50 ML IVPB SCH (11:36)
--- NOTE | 2018-07-08 12:15 | PN ---
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, Physician Chief Complaint: AMS UTI Anemia History of Present Illness: NAD UC negative, has been getting ertapenem afebrile no leukocytosis has a foot ulcer - Current Medication List Current Medications: Active Medications Albuterol/Ipratropium (Duoneb -) 1 amp NEB RTID [facility] Last Admin: 07/08/18 07:20 Dose: 1 amp Amino Acids (Prosource No Carb Liquid Pkt) 30 ml GT BID@0800,1730 [facility] Last Admin: 07/08/18 08:55 Dose: Not Given Amino Acids (Prosource No Carb Liquid Pkt) 30 ml PO BID@0800,1730 [facility] Last Admin: 07/08/18 08:55 Dose: Not Given Aspirin (Ecotrin -) 81 mg PO DAILY [facility] Last Admin: 07/08/18 09:22 Dose: 81 mg Brimonidine Tartrate (Alphagan P 0.1% -) 1 drop OU TID [facility] Last Admin: 07/08/18 06:28 Dose: 1 drop Citalopram Hydrobromide (Celexa -) 10 mg PO DAILY [facility] Last Admin: 07/08/18 09:22 Dose: 10 mg Collagenase (Santyl -) 1 applic TP DAILY [facility]; Protocol Last Admin: 07/08/18 09:24 Dose: 1 applic Dorzolamide HCl (Trusopt 2%) 1 drop OU TID [facility] Last Admin: 07/08/18 06:28 Dose: 1 drop Ertapenem 0.5 gm/ Sodium (Chloride) 50 mls @ 50 mls/hr IVPB DAILY [facility]; Protocol Last Admin: 07/08/18 11:36 Dose: 50 mls/hr Dextrose/Sodium Chloride (D5-Ns -) 1,000 mls @ 42 mls/hr IV ASDIR [facility] Last Admin: 07/07/18 18:02 Dose: 42 mls/hr Insulin Aspart (Novolog Vial Sliding Scale -) 1 vial SQ ACHS [facility]; Protocol Last Admin: 07/08/18 06:28 Dose: Not Given Latanoprost (Xalatan 0.005% Eye Drops -) 1 drop OU HS [facility] Last Admin: 07/07/18 21:16 Dose: 1 drop Morphine Sulfate (Morphine Sulfate) 1 mg IVPUSH Q4H PRN PRN Reason: PAIN LEVEL 7 - 10 Last Admin: 07/08/18 06:38 Dose: 1 mg Multivitamins/Minerals/Vitamin C (Tab-A-Vit -) 1 tab PO DAILY [facility] Last Admin: 07/08/18 09:46 Dose: 1 tab Pilocarpine HCl (Pilostat 1% -) 1 drop OU QID [facility] Last Admin: 07/08/18 09:23 Dose: 1 drop Polyethylene Glycol (Miralax (For Daily Use) -) 17 gm PO DAILY [facility] Last Admin: 07/08/18 09:25 Dose: Not Given Ranitidine HCl (Zantac Oral Solution -) 150 mg GT BID [facility] Last Admin: 07/08/18 09:27 Dose: Not Given Timolol Maleate (Timoptic 0.25%) 1 drop OD DAILY [facility] Last Admin: 07/08/18 09:26 Dose: 1 drop - Objective Vital Signs: Vital Signs Temperature 99.4 F 07/08/18 09:00 Pulse Rate 86 07/08/18 09:00 Respiratory Rate 20 07/08/18 09:00 Blood Pressure 106/56 07/08/18 09:00 O2 Sat by Pulse Oximetry (%) 98 07/07/18 21:00 Constitutional: Yes: No Distress, Calm, Cachectic Cardiovascular: Yes: Regular Rate and Rhythm Respiratory: Yes: Regular Gastrointestinal: Yes: Normal Bowel Sounds, Soft Musculoskeletal: Yes: Muscle Weakness Neurological: Yes: Alert Labs: CBC, BMP 07/07/18 11:15 07/07/18 11:15 INR, PTT INR 0.89 (0.83-1.09) 07/04/18 18:00 Problem List - Problems (1) Diarrhea Assessment/Plan: -Cdiff negative Code(s): R19.7 - DIARRHEA, UNSPECIFIED (2) UTI (urinary tract infection) Assessment/Plan: -UC negative -On Ertapenem Code(s): N39.0 - URINARY TRACT INFECTION, SITE NOT SPECIFIED Qualifiers: Urinary tract infection type: site unspecified Hematuria presence: without hematuria Qualified Code(s): N39.0 - Urinary tract infection, site not specified (3) Altered mental status Assessment/Plan: -metabolic encephalopathy? -hypothermia -Neurology consult ordered Code(s): R41.82 - ALTERED MENTAL STATUS, UNSPECIFIED Qualifiers: Altered mental status type: unspecified Qualified Code(s): R41.82 - Altered mental status, unspecified (4) Anemia Assessment/Plan: -had black tarry residue from GT -Stool OB x 1 negative -Seen by GI -ABD/Pelvis CT negative -Guaiac all stools -mild drop in H/H yesterday -repeat labs today -NPO until cleared by GI Code(s): D64.9 - ANEMIA, UNSPECIFIED Qualifiers: Anemia type: unspecified type Qualified Code(s): D64.9 - Anemia, unspecified (5) CKD (chronic kidney disease) Assessment/Plan: -Cr at baseline -monitor trend -CT abd showed moderately distended bladder, has hx of urinary retention -Bladder scan ordered -Insert manley if residue >200 ml Code(s): N18.9 - CHRONIC KIDNEY DISEASE, UNSPECIFIED (6) Parkinson disease Code(s): G20 - PARKINSON'S DISEASE (7) Severe protein-calorie malnutrition Assessment/Plan: -On Prosource -multivitamin -Zinc + Vit C -Ensure compact BID, change to Glucerna Code(s): E43 - UNSPECIFIED SEVERE PROTEIN-CALORIE MALNUTRITION (8) Type 2 diabetes mellitus with diabetic chronic kidney disease Assessment/Plan: -last A1c at 7.9 in 05/29 -BGM AC HS -Seen by RD -Poor intake as is -On Novolog sliding scale -margoth dd levemir if BGM consistently > 200 mg/dl Code(s): E11.22 - TYPE 2 DIABETES MELLITUS W DIABETIC CHRONIC KIDNEY DISEASE (9) Metabolic encephalopathy Assessment/Plan: -Wound culture -BC/UC negative -Neurology consult -IV Ertapenem Code(s): G93.41 - METABOLIC ENCEPHALOPATHY (10) Diabetic foot ulcer Assessment/Plan: -Podiatry consult -Wound culture Code(s): E11.621 - TYPE 2 DIABETES MELLITUS WITH FOOT ULCER; L97.509 - NON- PRESSURE CHRONIC ULCER OTH PRT UNSP FOOT W UNSP SEVERITY Qualifiers: Diabetic foot ulcer location: heel Diabetes mellitus type: type 2 Laterality: left Assessment/Plan see problem list DVT prophylaxis, hold if any overt signs of bleeding Physical therapy
--- NOTE | 2018-07-08 12:51 | PN ---
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 (short form) - Note 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: awake and babbling NAD Vital Signs Period Temp Pulse Resp BP Sys/Rose Pulse Ox Last 24 Hr 97.4 F-99.4 F 56-86 20-20 106-156/56-78 98 cor-rrr lungs clear abd sof,nt ext severely contracted with heel ulcer and ulcer first toe - both at pressure points CBC, BMP 07/07/18 11:15 07/07/18 11:15 Microbiology 07/04/18 18:00 Blood - Peripheral Venous Blood Culture - Preliminary NO GROWTH OBTAINED AFTER 72 HOURS, INCUBATION TO CONTINUE FOR 2 DAYS. 07/04/18 18:00 Blood - Peripheral Venous Blood Culture - Preliminary NO GROWTH OBTAINED AFTER 72 HOURS, INCUBATION TO CONTINUE FOR 2 DAYS. 07/07/18 12:30 Stool Clostridium difficile Antigen (VIDAL) - Final 07/07/18 12:30 Stool Clostridium difficile Toxin Assay - Final 07/04/18 19:30 Urine - Urine - Catheterized Urine Culture - Final NO GROWTH OBTAINED a/p d/c ertapenem heel/toe ulcer-pressure induced- given contractures not sure that off loading is even possible continue local care to foot wounds d/w PMD Problem List - Problems (1) Altered mental status Code(s): R41.82 - ALTERED MENTAL STATUS, UNSPECIFIED Qualifiers: Altered mental status type: unspecified Qualified Code(s): R41.82 - Altered mental status, unspecified (2) UTI (urinary tract infection) Code(s): N39.0 - URINARY TRACT INFECTION, SITE NOT SPECIFIED Qualifiers: Urinary tract infection type: site unspecified Hematuria presence: without hematuria Qualified Code(s): N39.0 - Urinary tract infection, site not specified (3) Heel ulcer Code(s): L97.409 - NON-PRS CHRONIC ULCER OF UNSP HEEL AND MIDFOOT W UNSP SEVERT (4) Dementia Code(s): F03.90 - UNSPECIFIED DEMENTIA WITHOUT BEHAVIORAL DISTURBANCE (5) MDRO (multiple drug resistant organisms) resistance Code(s): Z16.35 - RESISTANCE TO MULTIPLE ANTIMICROBIAL DRUGS
[2018-07-08] MEDS: ASCORBIC ACID 500 MG TABLET (FP) PO SCH ×2 (13:19→22:12)
[2018-07-08] MEDS: ZINC SULFATE 220 MG CAPSULE (FP) PO SCH ×2 (13:20→22:12)
[2018-07-08] MEDS: HEPARIN NA (PORCINE) 5,000 UNITS/ML 1ML VIAL SQ SCH ×2 (13:20→22:11)
[2018-07-08 14:01] LABS: BASO % 0.3 % (0-2.0); EOS % 1.5 % (0-4.5); HEMOGLOBIN 9.6 GM/dL (10.7-15.3); LYMPH % 10.2 % (8-40); MCH 31.5 pg (25.7-33.7); MCHC 33.1 g/dl (32.0-36.0); MEAN CELL VOLUME 95.2 fl (80-96); MEAN PLT VOLUME 7.4 fl (7.5-11.1); MONO % 5.4 % (3.8-10.2); NEUT % 82.6 % (42.8-82.8); PLATELET COUNT 217 K/MM3 (134-434); RBC 3.05 M/mm3 (3.60-5.2); RDW 13.7 % (11.6-15.6); WHITE BLOOD COUNT 7.1 K/mm3 (4.0-10.0)
--- NOTE | 2018-07-08 14:39 | PN ---
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, Physician History of Present Illness: Pt seen and examined at bedside. She is lethargic. - Current Medication List Current Medications: Active Medications Albuterol/Ipratropium (Duoneb -) 1 amp NEB RTID [facility] Last Admin: 07/08/18 13:38 Dose: 1 amp Amino Acids (Prosource No Carb Liquid Pkt) 30 ml GT BID@0800,1730 [facility] Last Admin: 07/08/18 08:55 Dose: Not Given Amino Acids (Prosource No Carb Liquid Pkt) 30 ml PO BID@0800,1730 [facility] Last Admin: 07/08/18 08:55 Dose: Not Given Ascorbic Acid (Vitamin C -) 500 mg PO BID [facility] Last Admin: 07/08/18 13:19 Dose: 500 mg Aspirin (Ecotrin -) 81 mg PO DAILY [facility] Last Admin: 07/08/18 09:22 Dose: 81 mg Brimonidine Tartrate (Alphagan P 0.1% -) 1 drop OU TID [facility] Last Admin: 07/08/18 13:21 Dose: 1 drop Citalopram Hydrobromide (Celexa -) 10 mg PO DAILY [facility] Last Admin: 07/08/18 09:22 Dose: 10 mg Collagenase (Santyl -) 1 applic TP DAILY [facility]; Protocol Last Admin: 07/08/18 09:24 Dose: 1 applic Dorzolamide HCl (Trusopt 2%) 1 drop OU TID [facility] Last Admin: 07/08/18 13:23 Dose: 1 drop Heparin Sodium (Porcine) (Heparin -) 5,000 unit SQ BID [facility] Last Admin: 07/08/18 13:20 Dose: 5,000 unit Dextrose/Sodium Chloride (D5-Ns -) 1,000 mls @ 42 mls/hr IV ASDIR [facility] Last Admin: 07/07/18 18:02 Dose: 42 mls/hr Insulin Aspart (Novolog Vial Sliding Scale -) 1 vial SQ ACHS [facility]; Protocol Last Admin: 07/08/18 12:15 Dose: Not Given Latanoprost (Xalatan 0.005% Eye Drops -) 1 drop OU HS [facility] Last Admin: 07/07/18 21:16 Dose: 1 drop Morphine Sulfate (Morphine Sulfate) 1 mg IVPUSH Q4H PRN PRN Reason: PAIN LEVEL 7 - 10 Last Admin: 07/08/18 06:38 Dose: 1 mg Multivitamins/Minerals/Vitamin C (Tab-A-Vit -) 1 tab PO DAILY [facility] Last Admin: 07/08/18 09:46 Dose: 1 tab Pilocarpine HCl (Pilostat 1% -) 1 drop OU QID [facility] Last Admin: 07/08/18 13:21 Dose: 1 drop Polyethylene Glycol (Miralax (For Daily Use) -) 17 gm PO DAILY [facility] Last Admin: 07/08/18 09:25 Dose: Not Given Ranitidine HCl (Zantac Oral Solution -) 150 mg GT BID [facility] Last Admin: 07/08/18 09:27 Dose: Not Given Timolol Maleate (Timoptic 0.25%) 1 drop OD DAILY [facility] Last Admin: 07/08/18 09:26 Dose: 1 drop Zinc Sulfate (Orazinc -) 220 mg PO BID [facility] Last Admin: 07/08/18 13:20 Dose: 220 mg - Objective Vital Signs: Vital Signs Temperature 99.4 F 07/08/18 09:00 Pulse Rate 86 07/08/18 09:00 Respiratory Rate 20 07/08/18 09:00 Blood Pressure 106/56 07/08/18 09:00 O2 Sat by Pulse Oximetry (%) 98 07/07/18 21:00 Constitutional: Yes: Calm Eyes: Yes: Conjunctiva Clear HENT: Yes: Atraumatic Neck: Yes: Supple Cardiovascular: Yes: S1, S2 Respiratory: Yes: On Nasal O2 Gastrointestinal: Yes: Soft, Other (peg tube) Genitourinary: Yes: Incontinence Musculoskeletal: Yes: Muscle Weakness Edema: No Neurological: Yes: Lethargy Labs: CBC, BMP 07/08/18 13:40 INR, PTT INR 0.89 (0.83-1.09) 07/04/18 18:00 Problem List - Problems (1) Dementia Code(s): F03.90 - UNSPECIFIED DEMENTIA WITHOUT BEHAVIORAL DISTURBANCE (2) CKD (chronic kidney disease) Code(s): N18.9 - CHRONIC KIDNEY DISEASE, UNSPECIFIED Assessment/Plan Current Medications Generic Name Dose Route Start Last Admin Trade Name Freq PRN Reason Stop Dose Admin Albuterol/Ipratropium 1 amp 07/05/18 20:00 07/08/18 13:38 Duoneb - NEB 1 amp RTID [facility] Administration Amino Acids 30 ml 07/05/18 17:30 08/27/18 08:55 Prosource No Carb Liquid Pkt GT Not Given BID@0800,1730 [facility] Amino Acids 30 ml 07/06/18 17:30 07/08/18 08:55 Prosource No Carb Liquid Pkt PO Not Given BID@0800,1730 [facility] Ascorbic Acid 500 mg 07/08/18 12:22 07/08/18 13:19 Vitamin C - PO 500 mg BID [facility] Administration Aspirin 81 mg 07/06/18 10:00 07/08/18 09:22 Ecotrin - PO 81 mg DAILY [facility] Administration Brimonidine Tartrate 1 drop 07/05/18 22:00 07/08/18 13:21 Alphagan P 0.1% - OU 1 drop TID [facility] Administration Citalopram Hydrobromide 10 mg 07/06/18 10:00 07/08/18 09:22 Celexa - PO 10 mg DAILY [facility] Administration Collagenase 1 applic 07/06/18 10:00 07/08/18 09:24 Santyl - TP 1 applic DAILY [facility] Administration Protocol Dorzolamide HCl 1 drop 07/05/18 22:00 07/08/18 13:23 Trusopt 2% OU 1 drop TID [facility] Administration Heparin Sodium (Porcine) 5,000 unit 07/08/18 12:30 07/08/18 13:20 Heparin - SQ 5,000 unit BID [facility] Administration Dextrose/Sodium Chloride 1,000 mls @ 42 mls/hr 07/07/18 17:45 07/07/18 18:02 D5-Ns - IV 42 mls/hr ASDIR [facility] Administration Insulin Aspart 1 vial 07/05/18 16:30 07/08/18 12:15 Novolog Vial Sliding Scale - SQ Not Given ACHS [facility] Protocol Latanoprost 1 drop 07/05/18 22:00 07/07/18 21:16 Xalatan 0.005% Eye Drops - OU 1 drop HS [facility] Administration Morphine Sulfate 1 mg 07/06/18 22:23 07/08/18 06:38 Morphine Sulfate IVPUSH 1 mg Q4H PRN Administration PAIN LEVEL 7 - 10 Multivitamins/Minerals/Vitamin C 1 tab 07/07/18 10:00 07/08/18 09:46 Tab-A-Vit - PO 1 tab DAILY [facility] Administration Pilocarpine HCl 1 drop 07/05/18 18:00 07/08/18 13:21 Pilostat 1% - OU 1 drop QID [facility] Administration Polyethylene Glycol 17 gm 07/06/18 10:00 07/08/18 09:25 Miralax (For Daily Use) - PO Not Given DAILY [facility] Ranitidine HCl 150 mg 07/05/18 22:00 07/08/18 09:27 Zantac Oral Solution - GT Not Given BID [facility] Timolol Maleate 1 drop 07/06/18 10:00 07/08/18 09:26 Timoptic 0.25% OD 1 drop DAILY [facility] Administration Zinc Sulfate 220 mg 07/08/18 12:30 07/08/18 13:20 Orazinc - PO 220 mg BID [facility] Administration Impression 1. CKD 2. anemia 3. change in mental status 4. sepsis 5. DM 6. Parkinson's disease 7. Depression 8. UTI 9. hypothermia Plan - follow labs from today - start clinimix - GI workup for peg tube in progress - will follow - abx per ID
[2018-07-08 14:40] LABS: ALBUMIN 2.1 g/dl (3.4-5.0); ALK PHOS 103 U/L (45-117); ANION GAP 8 MMOL/L (8-16); BILIRUBIN,TOTAL 0.2 mg/dL (0.2-1.0); BLOOD UREA NITROGEN 44 mg/dL (7-18); CALCIUM 8.4 mg/dL (8.5-10.1); CHLORIDE 112 mmol/L (98-107); CO2 22 mmol/L (21-32); CREATININE 1.6 mg/dL (0.55-1.02); GLUCOSE,RANDOM 120 mg/dL (74-106); POTASSIUM 4.4 mmol/L (3.5-5.1); SGOT/AST 25 U/L (15-37); SGPT/ALT 48 U/L (12-78); SODIUM 142 mmol/L (136-145); TOT PROT 5.9 g/dl (6.4-8.2)
--- NOTE | 2018-07-08 15:28 | PN ---
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 (short form) - Note 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: CT report reviewed. C. diff stools results noted. Will repeat abdominal flat plate with astrografin via G-tube and if negative for exravasation, will resume feeding with aspiration precautions.
[2018-07-08] MEDS: AMINO ACIDS 4.25%/D5W 1,000 ML IV SCH (17:25)
--- NOTE | 2018-07-08 20:03 | CONSULT ---
Consult - text type - Consultation Consultation Note: Patient seen in bed. vss. Pt is not alert or oriented vs decreased, +contracted left leg, +wound of big toe and heel, -drainage,+ localized cellulitis contracture deformity left wound left heel and toe Taking into account patients non ambulatory status local wound care left with Santyl dressing changes is suggested tx. Palliative care. Would consider a bka rather than putting patient through chronic wound care if situation became worsened.
[2018-07-08] MEDS: LATANOPROST 0.005% OPHTH SOLN 2.5ML BOTTLE OU SCH (22:13)
[2018-07-09] MEDS: MORPHINE SULFATE 2 MG/ML VIAL IVPUSH PRN ×2 (03:15→09:19)
[2018-07-09] MEDS: INSULIN SLIDING SCALE (NOVOLOG) 1 VIAL SQ SCH ×3 (06:06→16:29)
[2018-07-09] MEDS: AMINO ACIDS 4.25%/D5W 1,000 ML IV SCH ×2 (06:07→14:24)
[2018-07-09] MEDS: DORZOLAMIDE 2% HCL OPHTHALMIC SOLUTION 10 ML BOTTLE OU SCH ×2 (06:09→13:09)
[2018-07-09] MEDS: BRIMONIDINE TARTRATE 0.1% OPHTHALMIC 5 ML BOTTLE OU SCH ×2 (06:09→13:09)
[2018-07-09 08:00] LABS: BASO % 0.5 % (0-2.0); EOS % 0.8 % (0-4.5); HEMATOCRIT 25.5 % (32.4-45.2); HEMOGLOBIN 8.4 GM/dL (10.7-15.3); LYMPH % 9.3 % (8-40); MCH 31.1 pg (25.7-33.7); MCHC 32.8 g/dl (32.0-36.0); MEAN CELL VOLUME 94.6 fl (80-96); MEAN PLT VOLUME 7.8 fl (7.5-11.1); MONO % 5.5 % (3.8-10.2); NEUT % 83.9 % (42.8-82.8); PLATELET COUNT 203 K/MM3 (134-434); RDW 13.9 % (11.6-15.6); WHITE BLOOD COUNT 7.9 K/mm3 (4.0-10.0)
[2018-07-09] MEDS: AMINO ACIDS/PROTEIN HYDROLYS 30 ML LIQUID.PKT PO SCH (08:25)
[2018-07-09] MEDS: AMINO ACIDS/PROTEIN HYDROLYS 30 ML LIQUID.PKT GT SCH (08:25)
[2018-07-09 08:39] LABS: ALBUMIN 2.1 g/dl (3.4-5.0); ANION GAP 7 MMOL/L (8-16); BLOOD UREA NITROGEN 48 mg/dL (7-18); CALCIUM 8.2 mg/dL (8.5-10.1); CHLORIDE 109 mmol/L (98-107); CO2 22 mmol/L (21-32); GLUCOSE,RANDOM 148 mg/dL (74-106); MAGNESIUM 1.7 mg/dL (1.8-2.4); POTASSIUM 3.8 mmol/L (3.5-5.1); SODIUM 138 mmol/L (136-145)
[2018-07-09 08:43] LABS: ALK PHOS 100 U/L (45-117); BILIRUBIN,TOTAL 0.2 mg/dL (0.2-1.0); CREATININE 1.7 mg/dL (0.55-1.02); SGOT/AST 20 U/L (15-37); SGPT/ALT 43 U/L (12-78); TOT PROT 5.8 g/dl (6.4-8.2)
[2018-07-09] MEDS ORDERED: ALBUTEROL SO4 2.5/IPRATROPIUM 0.5 INH SOL 3 ML VIAL.NEB. NEB ONE (08:44)
[2018-07-09] MEDS: ALBUTEROL SO4 2.5/IPRATROPIUM 0.5 INH SOL 3 ML VIAL.NEB. NEB SCH ×2 (09:00→16:20)
[2018-07-09] MEDS: RANITIDINE HCL 150 MG/10 ML UNIT-DOSE GT SCH (09:18)
[2018-07-09] MEDS: POLYETHYLENE GLYCOL 3350 119 GM BTL PO SCH (09:18)
[2018-07-09] MEDS: ASPIRIN COATED 81 MG TABLET.EC PO SCH (09:19)
[2018-07-09] MEDS: PILOCARPINE 1% OPHTHALMIC SOLUTION 15 ML BOTTLE OU SCH ×2 (09:19→13:09)
[2018-07-09] MEDS: ZINC SULFATE 220 MG CAPSULE (FP) PO SCH (09:19)
[2018-07-09] MEDS: MULTIVITAMINS (DAILY MVI) TABLET (FP) PO SCH (09:19)
[2018-07-09] MEDS: ASCORBIC ACID 500 MG TABLET (FP) PO SCH (09:19)
[2018-07-09] MEDS: HEPARIN NA (PORCINE) 5,000 UNITS/ML 1ML VIAL SQ SCH (09:19)
[2018-07-09] MEDS: CITALOPRAM HYDROBROMIDE 10 MG TABLET (FP) PO SCH (09:19)
[2018-07-09] MEDS: TIMOLOL 0.25% OPHTHALMIC SOL 5 ML BOTTLE OD SCH (09:20)
[2018-07-09] MEDS: COLLAGENASE CLOSTRIDIUM HIST. 30 GRAMS TUBE TP SCH (09:20)
--- NOTE | 2018-07-09 10:14 | CON.NEURO ---
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: Yes: Dementia, Parkinson's Cardio/Vascular: Yes: Hyperlipdemia Renal/: Yes: Renal Failure (chronic stage 4 ), Renal Inusuff ...: No Psych: Yes: Depression Endocrine: Yes: Diabetes Mellitus Additional Medical History: Glaucoma - Past Surgical History Additional Surgical History: PEG 11/29 - Alcohol/Substance Use Hx Alcohol Use: No (unknown) History of Substance Use: reports: None - Smoking History Smoking history: Unknown if ever smoked Have you smoked in the past 12 months: No - Social History ADL: Support Services History of Recent Travel: No Home Medications - Allergies Allergies/Adverse Reactions: Allergies Allergy/AdvReac Type Severity Reaction Status Date / Time No Known Allergies Allergy Verified 11/28/17 11:40 - Home Medications Home Medications: Ambulatory Orders Aspirin [Aspirin EC] 81 mg PO DAILY 11/28/17 Brimonidine Tartrate [Alphagan P 0.1% -] 1 drop OU TID 11/28/17 Calcium Carbonate/Vitamin D3 [Calcium 500-Vit D3 200 Caplet] 1 each PO DAILY Citalopram Hydrobromide [Celexa -] 10 mg PO DAILY 11/28/17 Cyanocobalamin (Vitamin B-12) [Vitamin B-12] 1,000 mcg PO DAILY 11/28/17 Dorzolamide HCl [Trusopt 2% -] 1 drop OU TID 11/28/17 Latanoprost 0.005% Eye Drops [Xalatan 0.005% Eye Drops -] 1 drop OU HS 11/28/17 Pilocarpine 1% [Pilostat 1% -] 1 drop OU QID 11/28/17 Insulin Sliding Scale [Novolog Vial Sliding Scale -] 1 vial SQ HS units Ferrous Sulfate 7.5 ml PO DAILY 05/30/18 Omeprazole Pediatric Solution [Omeprazole Pediatric Oral Solution] 20 mg GT HS 05/30/18 Polyethylene Glycol 3350 [Glycolax] 17 gm PO DAILY 05/30/18 Timolol 0.25% [Timoptic 0.25%] 5 ml OD DAILY 05/30/18 Albuterol 2.5/Ipratropium 0.5 [Duoneb -] 1 amp NEB RTID amp 06/06/18 Amino Acids/Protein Hydrolys [Prosource No Carb Liquid Pkt] 30 ml GT BID@0800, 1730 packet 06/06/18 Ascorbic Acid [Vitamin C -] 500 mg PO BID tablet 06/06/18 Cefuroxime Axetil [Ceftin -] 250 mg PO BID #6 tablet 06/06/18 Collagenase Clostridium Hist. [Santyl -] 1 applic TP DAILY tube 06/06/18 Cyanocobalamin [Vitamin B12 -] 1,000 mcg GT DAILY tablet 06/06/18 Insulin (Levemir) [Levemir Vial] 10 units SQ AM units 06/06/18 Zinc Sulfate [Orazinc -] 220 mg PO BID capsule 06/06/18 Physical Exam-Neuro Vital Signs: Vital Signs Temperature 97.5 F L 07/09/18 05:59 Pulse Rate 79 07/09/18 05:59 Respiratory Rate 20 07/09/18 05:59 Blood Pressure 140/64 07/09/18 05:59 O2 Sat by Pulse Oximetry (%) 95 07/08/18 21:00 Labs: CBC, BMP 07/09/18 06:00 07/09/18 06:00 INR, PTT INR 0.89 (0.83-1.09) 07/04/18 18:00 Assessment/Plan cc Altered mental status change HPI 67 year old female has multiple medical problem, including anemia, dementia , DM, HTN, HLD Renal failure, PD,. She was brought up to hospital for uti, hypothermia and mental status, there is no seizure activity. Patient was initially treated with abx. She does not seems to be septic at thist mary alice, there is no wbc or fever. She was being treated wt aricept in past. I was asked to see for mental status change. There is no seizure or any weakness of one side of the body. Previous chart were reviewed and she has this mental status as basline. PMH as above Social history, ROS, FH, reviewed in chart Allergies/Adverse Reactions: Allergies Allergy/AdvReac Type Severity Reaction Status Date / Time No Known Allergies Allergy Verified 11/28/17 11:40 home Medication Aspirin [Aspirin EC] 81 mg PO DAILY 11/28/17 Brimonidine Tartrate [Alphagan P 0.1% -] 1 drop OU TID 11/28/17 Calcium Carbonate/Vitamin D3 [Calcium 500-Vit D3 200 Caplet] 1 each PO DAILY Citalopram Hydrobromide [Celexa -] 10 mg PO DAILY 11/28/17 Cyanocobalamin (Vitamin B-12) [Vitamin B-12] 1,000 mcg PO DAILY 11/28/17 Dorzolamide HCl [Trusopt 2% -] 1 drop OU TID 11/28/17 Latanoprost 0.005% Eye Drops [Xalatan 0.005% Eye Drops -] 1 drop OU HS 11/28/17 Pilocarpine 1% [Pilostat 1% -] 1 drop OU QID 11/28/17 Insulin Sliding Scale [Novolog Vial Sliding Scale -] 1 vial SQ HS units Ferrous Sulfate 7.5 ml PO DAILY 05/30/18 Omeprazole Pediatric Solution [Omeprazole Pediatric Oral Solution] 20 mg GT HS 05/30/18 Polyethylene Glycol 3350 [Glycolax] 17 gm PO DAILY 05/30/18 Timolol 0.25% [Timoptic 0.25%] 5 ml OD DAILY 05/30/18 Albuterol 2.5/Ipratropium 0.5 [Duoneb -] 1 amp NEB RTID amp 06/06/18 Amino Acids/Protein Hydrolys [Prosource No Carb Liquid Pkt] 30 ml GT BID@0800, 1730 packet 06/06/18 Ascorbic Acid [Vitamin C -] 500 mg PO BID tablet 06/06/18 Cefuroxime Axetil [Ceftin -] 250 mg PO BID #6 tablet 06/06/18 Collagenase Clostridium Hist. 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 She is off abx and continue to remain confused. This seems to be delirium due to hospitalization in setting of severe dementia, and intercurrent medical illness Unlikely to be acute stroke, Meningitis or Status epilepticus Plan- 1. suggest to obtain ct head and b12,foalte tsh 2 resume aricept 3 PT and supportive care
[2018-07-09] MEDS ORDERED: DONEPEZIL HCL 10 MG TABLET (FP) PO SCH (10:15)
--- NOTE | 2018-07-09 11:23 | DS ---
Physical Examination Vital Signs: Vital Signs Temperature 97.4 F L 07/09/18 10:00 Pulse Rate 71 07/09/18 10:00 Respiratory Rate 18 07/09/18 10:00 Blood Pressure 144/62 07/09/18 10:00 O2 Sat by Pulse Oximetry (%) 100 07/09/18 09:00 Findings/Remarks: The patient is a 67-year-old female with significant past medical history of anemia, dementia, DM, HTN, HLD, kidney failure, glaucoma, Parkinsons, who presents to the emergency department today BIBEMS from [facility] to be evaluated for altered mental status, and hypothermic. As per EMS, the patient was found to have a temperature of 92 F, was hypertensive and bradycardic at [facility]. In the ED, the patient is contracted in flexion and non-verbal which is consistent with patient's baseline. Constitutional: Yes: No Distress, Calm, Cachectic Cardiovascular: Yes: Regular Rate and Rhythm Respiratory: Yes: Regular Gastrointestinal: Yes: Normal Bowel Sounds, Soft Musculoskeletal: Yes: Other (atrophy) Extremities: Yes: Other (atrophy/contracture) Edema: No Integumentary: Yes: Pressure Ulcer (left heel) Wound/Incision: Yes: Dressing Dry and Intact Neurological: Yes: Alert, Pre-Existing Deficit Psychiatric: Yes: Alert Labs: CBC, BMP 07/09/18 06:00 07/09/18 06:00 Discharge Summary Reason For Visit: URINARY TRACT INFECTION/ALTERED MENTAL STATUS Current Active Problems Abnormal x-ray of abdomen (Acute) Attention to G-tube (Acute) Dementia (Acute) Diabetic foot ulcer (Acute) Diarrhea (Acute) Heel ulcer (Acute) MDRO (multiple drug resistant organisms) resistance (Acute) Metabolic encephalopathy (Acute) Sepsis (Acute) UTI (urinary tract infection) (Acute) Hospital Course: CT head-negative -Labs unremarkable -UC/BC negative -Seen by Podiatry, neurology and ID -Strict offloading of left foot to avoid further deterioration of the pressure ulcer. -Repeat CBC/CMP in 1 week Condition: Stable - Instructions Diet, Activity, Other Instructions: -Strict offloading of left foot to avoid further deterioration of the pressure ulcer. -Repeat CBC/CMP in 1 week Referrals: Pradip Montelongo MD [Primary Care Provider] - Disposition: [facility]FWAY FACILITY - Home Medications Comprehensive Discharge Medication List: Ambulatory Orders Aspirin [Aspirin EC] 81 mg PO DAILY 11/28/17 Brimonidine Tartrate [Alphagan P 0.1% -] 1 drop OU TID 11/28/17 Calcium Carbonate/Vitamin D3 [Calcium 500-Vit D3 200 Caplet] 1 each PO DAILY Citalopram Hydrobromide [Celexa -] 10 mg PO DAILY 11/28/17 Cyanocobalamin (Vitamin B-12) [Vitamin B-12] 1,000 mcg PO DAILY 11/28/17 Dorzolamide HCl [Trusopt 2% -] 1 drop OU TID 11/28/17 Latanoprost 0.005% Eye Drops [Xalatan 0.005% Eye Drops -] 1 drop OU HS 11/28/17 Pilocarpine 1% [Pilostat 1% -] 1 drop OU QID 11/28/17 Insulin Sliding Scale [Novolog Vial Sliding Scale -] 1 vial SQ HS units Ferrous Sulfate 7.5 ml PO DAILY 05/30/18 Omeprazole Pediatric Solution [Omeprazole Pediatric Oral Solution] 20 mg GT HS 05/30/18 Polyethylene Glycol 3350 [Glycolax] 17 gm PO DAILY 05/30/18 Timolol 0.25% [Timoptic 0.25%] 5 ml OD DAILY 05/30/18 Albuterol 2.5/Ipratropium 0.5 [Duoneb -] 1 amp NEB RTID amp 06/06/18 Amino Acids/Protein Hydrolys [Prosource No Carb Liquid Pkt] 30 ml GT BID@0800, 1730 packet 06/06/18 Ascorbic Acid [Vitamin C -] 500 mg PO BID tablet 06/06/18 Cyanocobalamin [Vitamin B12 -] 1,000 mcg GT DAILY tablet 06/06/18 Insulin (Levemir) [Levemir Vial] 10 units SQ AM units 06/06/18 Zinc Sulfate [Orazinc -] 220 mg PO BID capsule 06/06/18 Amino Acids/Protein Hydrolys [Prosource No Carb Liquid Pkt] 30 ml PO BID@0800, 1730 packet 07/09/18 Ascorbic Acid [Vitamin C -] 500 mg PO BID tablet 07/09/18 Collagenase Clostridium Hist. [Santyl -] 1 applic TP DAILY #0 tube 07/09/18 Donepezil HCl [Aricept -] 10 mg PO DAILY tablet 07/09/18 Insulin Sliding Scale [Novolog Vial Sliding Scale -] 1 vial SQ ACHS units 07/09 Multivitamins [Multivit ([facility])] 1 tab PO DAILY tab 07/09/18 Zinc Sulfate [Orazinc -] 220 mg PO BID capsule 07/09/18
--- NOTE | 2018-07-09 12:37 | PN ---
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 (short form) - Note 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: abd xra reviewed. G-tube confirmed.
[2018-07-09 15:08] VITALS: BP 137/77; PULSE 74; TEMP 97.3
[2018-07-09] MEDS ORDERED: AMINO ACIDS 4.25%/D5W 1,000 ML IV SCH (17:05)
--- NOTE | 2018-07-09 17:05 | PN ---
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, Physician History of Present Illness: Pt seen and examined at bedside. She remains lethargic. - Current Medication List Current Medications: Active Medications Albuterol/Ipratropium (Duoneb -) 1 amp NEB RTID [facility] Last Admin: 07/09/18 16:20 Dose: 1 amp Amino Acids (Prosource No Carb Liquid Pkt) 30 ml GT BID@0800,1730 [facility] Last Admin: 07/09/18 08:25 Dose: Not Given Amino Acids (Prosource No Carb Liquid Pkt) 30 ml PO BID@0800,1730 [facility] Last Admin: 07/09/18 08:25 Dose: 30 ml Ascorbic Acid (Vitamin C -) 500 mg PO BID [facility] Last Admin: 07/09/18 09:19 Dose: 500 mg Aspirin (Ecotrin -) 81 mg PO DAILY [facility] Last Admin: 07/09/18 09:19 Dose: 81 mg Brimonidine Tartrate (Alphagan P 0.1% -) 1 drop OU TID [facility] Last Admin: 07/09/18 13:09 Dose: 1 drop Citalopram Hydrobromide (Celexa -) 10 mg PO DAILY [facility] Last Admin: 07/09/18 09:19 Dose: 10 mg Collagenase (Santyl -) 1 applic TP DAILY [facility]; Protocol Last Admin: 07/09/18 09:20 Dose: 1 applic Dorzolamide HCl (Trusopt 2%) 1 drop OU TID [facility] Last Admin: 07/09/18 13:09 Dose: 1 drop Heparin Sodium (Porcine) (Heparin -) 5,000 unit SQ BID [facility] Last Admin: 07/09/18 09:19 Dose: 5,000 unit Amino Acids (Clinimix -) 1,000 mls @ 70 mls/hr IV Q12H [facility] Last Admin: 07/09/18 14:24 Dose: Not Given Insulin Aspart (Novolog Vial Sliding Scale -) 1 vial SQ ACHS [facility]; Protocol Last Admin: 07/09/18 16:29 Dose: Not Given Latanoprost (Xalatan 0.005% Eye Drops -) 1 drop OU HS [facility] Last Admin: 07/08/18 22:13 Dose: 1 drop Morphine Sulfate (Morphine Sulfate) 1 mg IVPUSH Q4H PRN PRN Reason: PAIN LEVEL 7 - 10 Last Admin: 07/09/18 09:19 Dose: 1 mg Multivitamins/Minerals/Vitamin C (Tab-A-Vit -) 1 tab PO DAILY [facility] Last Admin: 07/09/18 09:19 Dose: 1 tab Pilocarpine HCl (Pilostat 1% -) 1 drop OU QID [facility] Last Admin: 07/09/18 13:09 Dose: 1 drop Polyethylene Glycol (Miralax (For Daily Use) -) 17 gm PO DAILY [facility] Last Admin: 07/09/18 09:18 Dose: 17 grams Ranitidine HCl (Zantac Oral Solution -) 150 mg GT BID [facility] Last Admin: 07/09/18 09:18 Dose: 150 mg Timolol Maleate (Timoptic 0.25%) 1 drop OD DAILY [facility] Last Admin: 07/09/18 09:20 Dose: 1 drop Zinc Sulfate (Orazinc -) 220 mg PO BID [facility] Last Admin: 07/09/18 09:19 Dose: 220 mg - Objective Vital Signs: Vital Signs Temperature 97.3 F L 07/09/18 15:06 Pulse Rate 74 07/09/18 15:06 Respiratory Rate 20 07/09/18 15:06 Blood Pressure 137/77 07/09/18 15:06 O2 Sat by Pulse Oximetry (%) 100 07/09/18 09:00 Constitutional: Yes: Calm Eyes: Yes: Conjunctiva Clear HENT: Yes: Atraumatic Cardiovascular: Yes: S1, S2 Respiratory: Yes: On Nasal O2 Gastrointestinal: Yes: Other (peg tube) Genitourinary: Yes: Incontinence Musculoskeletal: Yes: Muscle Weakness Edema: No Neurological: Yes: Lethargy Labs: CBC, BMP 07/09/18 06:00 07/09/18 06:00 INR, PTT INR 0.89 (0.83-1.09) 07/04/18 18:00 Problem List - Problems (1) Dementia Code(s): F03.90 - UNSPECIFIED DEMENTIA WITHOUT BEHAVIORAL DISTURBANCE (2) CKD (chronic kidney disease) Code(s): N18.9 - CHRONIC KIDNEY DISEASE, UNSPECIFIED Assessment/Plan Current Medications Generic Name Dose Route Start Last Admin Trade Name Freq PRN Reason Stop Dose Admin Albuterol/Ipratropium 1 amp 07/05/18 20:00 07/09/18 16:20 Duoneb - NEB 1 amp RTID [facility] Administration Amino Acids 30 ml 07/05/18 17:30 07/09/18 08:25 Prosource No Carb Liquid Pkt GT Not Given BID@0800,1730 [facility] Amino Acids 30 ml 07/06/18 17:30 07/09/18 08:25 Prosource No Carb Liquid Pkt PO 30 ml BID@0800,1730 [facility] Administration Ascorbic Acid 500 mg 07/08/18 12:22 07/09/18 09:19 Vitamin C - PO 500 mg BID [facility] Administration Aspirin 81 mg 07/06/18 10:00 07/09/18 09:19 Ecotrin - PO 81 mg DAILY [facility] Administration Brimonidine Tartrate 1 drop 07/05/18 22:00 07/09/18 13:09 Alphagan P 0.1% - OU 1 drop TID [facility] Administration Citalopram Hydrobromide 10 mg 07/06/18 10:00 07/09/18 09:19 Celexa - PO 10 mg DAILY [facility] Administration Collagenase 1 applic 07/06/18 10:00 07/09/18 09:20 Santyl - TP 1 applic DAILY [facility] Administration Protocol Dorzolamide HCl 1 drop 07/05/18 22:00 07/09/18 13:09 Trusopt 2% OU 1 drop TID [facility] Administration Heparin Sodium (Porcine) 5,000 unit 07/08/18 12:30 07/09/18 09:19 Heparin - SQ 5,000 unit BID [facility] Administration Amino Acids 1,000 mls @ 70 mls/hr 07/08/18 14:45 07/09/18 14:24 Clinimix - IV Not Given Q12H [facility] Insulin Aspart 1 vial 07/05/18 16:30 07/09/18 16:29 Novolog Vial Sliding Scale - SQ Not Given ACHS [facility] Protocol Latanoprost 1 drop 07/05/18 22:00 07/08/18 22:13 Xalatan 0.005% Eye Drops - OU 1 drop HS [facility] Administration Morphine Sulfate 1 mg 07/06/18 22:23 07/09/18 09:19 Morphine Sulfate IVPUSH 1 mg Q4H PRN Administration PAIN LEVEL 7 - 10 Multivitamins/Minerals/Vitamin C 1 tab 07/07/18 10:00 07/09/18 09:19 Tab-A-Vit - PO 1 tab DAILY [facility] Administration Pilocarpine HCl 1 drop 07/05/18 18:00 07/09/18 13:09 Pilostat 1% - OU 1 drop QID [facility] Administration Polyethylene Glycol 17 gm 07/06/18 10:00 07/09/18 09:18 Miralax (For Daily Use) - PO 17 grams DAILY [facility] Administration Ranitidine HCl 150 mg 07/05/18 22:00 07/09/18 09:18 Zantac Oral Solution - GT 150 mg BID [facility] Administration Timolol Maleate 1 drop 07/06/18 10:00 07/09/18 09:20 Timoptic 0.25% OD 1 drop DAILY [facility] Administration Zinc Sulfate 220 mg 07/08/18 12:30 07/09/18 09:19 Orazinc - PO 220 mg BID [facility] Administration Impression 1. CKD 2. anemia 3. change in mental status 4. sepsis 5. DM 6. Parkinson's disease 7. Depression 8. UTI 9. hypothermia Plan - cont with clinimix - GI follow up for peg - repeat labs in am - will follow - abx per ID
[2018-07-09] MEDS ORDERED: MAGNESIUM SULF 50% (8.12 MEQ/2 ML-1 GM VIAL) IVPB ONE (17:15)
== END 2018-07-09 17:00 | DRG 871 ==
LOC: JER 17:18 → JERBED 21:04 → J7W 07-05 14:31
PROVIDERS: ADMIT Internal Medicine; ATTEND Family Medicine
DX: A41.9 Sepsis, unspecified organism (principal); L89.624 Pressure ulcer of left heel, stage 4; E43 Unspecified severe protein-calorie malnutrition; G93.41 Metabolic encephalopathy; N39.0 Urinary tract infection, site not specified; N18.4 Chronic kidney disease, stage 4 (severe); R64 Cachexia; Z68.1 Body mass index [BMI] 19.9 or less, adult; L97.528 Non-pressure chronic ulcer of other part of left foot with other specified severity; N17.9 Acute kidney failure, unspecified; E11.621 Type 2 diabetes mellitus with foot ulcer; F03.90 Unspecified dementia, unspecified severity, without behavioral disturbance, psychotic disturbance, mood disturbance, and anxiety; G20 Parkinson's disease; H40.9 Unspecified glaucoma; E78.5 Hyperlipidemia, unspecified; D64.9 Anemia, unspecified; F02.80 Dementia in other diseases classified elsewhere, unspecified severity, without behavioral disturbance, psychotic disturbance, mood disturbance, and anxiety; F32.9 Major depressive disorder, single episode, unspecified; I12.9 Hypertensive chronic kidney disease with stage 1 through stage 4 chronic kidney disease, or unspecified chronic kidney disease; E11.22 Type 2 diabetes mellitus with diabetic chronic kidney disease; R19.7 Diarrhea, unspecified; A49.9 Bacterial infection, unspecified; R93.5 Abnormal findings on diagnostic imaging of other abdominal regions, including retroperitoneum; R68.0 Hypothermia, not associated with low environmental temperature; I95.9 Hypotension, unspecified; Z16.35 Resistance to multiple antimicrobial drugs
CPT/HCPCS: 36415; 36600; 70450-TC; 71045-TC-FY; 74018-TC-FY; 74176-TC; 80048; 80053; 81003; 81015; 82272; 82375; 82607; 82746; 82803; 82962; 83050; 83605; 83735; 84100; 84484; 85025; 85027; 85610; 85730; 87040; 87070; 87077; 87086; 87186; 87205; 87324; 87449; 93005; 93010; 94640; 99285-25; J0878; J1644; J7030; J7620